=== PATIENT | female | born 1945 | race Caucasian/White ===

== ENCOUNTER 2020-10-04 10:06 | Outpatient (CLI) | payer MEDICARE, SELFPAY ==
--- NOTE | ~2020-10-04 | MM_ITS ---
EXAMINATION: MM screening [facility] BI w el[facility] HISTORY: Screening mammogram TECHNIQUE: Craniocaudal and mediolateral oblique 3-D tomosynthesis images were obtained and synthetic 2-D images were generated. CAD analysis was submitted and interpreted. COMPARISON: 10/03/2019, 09/30/2018, 09/19/2017 BREAST PARENCHYMAL COMPOSITION: There are scattered areas of fibroglandular density. FINDINGS: Scattered benign-appearing calcifications are present. There is no evidence of suspicious m ass, calcification, or architectural distortion to suggest malignancy in either breast. There has bee n no suspicious interval change. IMPRESSION: 1. No mammographic evidence of malignancy. 2. Recommend routine screening mammography in one year. BI-RADS Category 2: Benign finding(s). Reviewed, dictated and finalized at location A. [address] [facility] STENOGRAPHER
== END 2020-10-04 10:07 | disposition home or self-care (01) ==
LOC: ANHIMG 10:09
PROVIDERS: PCP Family Medicine; Visit Provider Family Medicine
DX: Z12.31 Encounter for screening mammogram for malignant neoplasm of breast (principal)
CPT/HCPCS: 77063; 77067

== ENCOUNTER 2020-10-14 08:12 | Outpatient (RCR) | payer MEDICARE, SELFPAY ==
--- NOTE | 2020-10-14 09:38 | PTOPEVAL ---
INITIAL PHYSICAL THERAPY EVALUATION Thank you for referring Kay Winn to [facility].? Eply maneuver was performed this date for + L Aviva Hallpike testing which Vandana tolerated well. Post 24 hour precautions for Eply maneuver information was provided as well as self corrective Eply maneuver information. I will follow up with phone call with Vandana in 1 week. If further treatment is needed, I will formulate a plan of care and forward it to you for signature. At this point, no further PT follow up is planned. I agree with PT evaluation and Eply maneuver corrective technique. Referring Physician Date Admitting Provider: Attending Provider: Rolando Gutierrez MD Referring Provider: *PT Outpatient Evaluation Start: 10/14/20 08:38 Freq: Status: Active Protocol: Document 10/14/20 08:30 KLAUDIA (Rec: 10/14/20 09:35 KLAUDIA [id number]) Therapy Assessment Status Assessment Status Assessment Status Evaluation Outpatient Past Medical History Past Medical History Source of Past Medical History Patient Neurological History Hx Neurological Disorders No Significant History Cardiovascular History Hx Atrial Fibrillation Yes: in afib all of the time Hx Hypercholesterolemia Yes Hx Hypertension Yes Hx Pacemaker Yes: new battery 2016 Hx Valve Replacement Yes: mitral valve 2005 Respiratory History Hx Chronic Obstructive Pulmonary Disease Yes: wears CPAP at night (COPD) Hx Pneumonia Yes: Oct 2019 Gastrointestinal History Hx Diverticulitis Yes Genitourinary History Hx Genitourinary Disorders No Significant History Musculoskeletal History Hx Musculoskeletal Disorders No Significant History Endocrine History Hx Diabetes Yes HEENT History Hx Cataracts Yes: L cataract surgery, watching R eye Evaluation Information Problem Diagnosis BPPV Onset ~ 1 year Subjective Information When gets into bed - goes to Query Text:As Reported By Patient/ lie down - head will spin. Family Only lasts 2-3 secs No difficulty with rolling over in bed or when getting up in the mornings. No dizziness at any other time. Did take Meclizine in past - didn't change dizziness - stopped taking it. Diagnostic Tests Other Tests For This Problem Yes: audiology exam, ENT exam Prior Level of Function Activity Level (Last 3 Months) Hand Dominance Right Medications Home Meds (Include: OTC, RX, Vitamins, Alendronate, allopurinol, Herbals, Dose, Route,and Frequency) atrovastatin, basaglar Pens, Query Text:Home Med Entries Will No ca
--- NOTE | 2020-10-20 08:55 | PCPTNOTE ---
Follow up phone call made to Vandana - she has not had any further dizziness. Will d/c from PT at this time.
== END 2020-12-29 09:28 | disposition home or self-care (01) ==
LOC: ANHPT 08:12
PROVIDERS: PCP Family Medicine; Visit Provider Otolaryngology
DX: H81.10 Benign paroxysmal vertigo, unspecified ear (principal)
CPT/HCPCS: 97161

== ENCOUNTER 2021-03-04 15:09 | Emergency (ER) | payer MEDICARE, SELFPAY ==
--- NOTE | 2021-03-04 15:33 | ED.SKABFB ---
HPI - Skin/Abscess/Foreign Bdy General Chief complaint: Skin/Abscess/Foreign Body Stated complaint: Lump on leg Time Seen by Provider: 03/04/21 15:33 Source: patient and RN notes reviewed Mode of arrival: ambulatory Limitations: no limitations History of Present Illness HPI narrative: 75-year-old female presents to the [facility] with right anterior lower leg lump. States it developed about 3 weeks ago. Lump is about 2-1/2 cm in diameter currently that is fluctuant with a dark center. Swelling and redness to the entire lower extremity. patient reports that she went for a massage yesterday and the massage therapist pointed out that the skin is very tight and the leg is firm with increased warmth. Patient states she has had something similar in the past and was admitted to the hospital for IV antibiotics. Related Data Home Medications Medication Instructions Recorded Confirmed alendronate [Fosamax] 70 mg PO WEEKLY 03/04/21 03/04/21 allopurinol [Zyloprim] 300 mg PO DAILY 03/04/21 03/04/21 atorvastatin [Lipitor] 10 mg PO HS 03/04/21 03/04/21 mllkzqpzey-gyemspgf-gbyxmeksbt 2 inh INHALATION BID 03/04/21 03/04/21 [Breztri Aerosphere] carvedilol [Coreg] 25 mg PO BID 03/04/21 03/04/21 doxycycline monohydrate 50 mg PO BID 03/04/21 03/04/21 furosemide [Lasix] 20 mg PO DAILY 03/04/21 03/04/21 insulin glargine [Basaglar KwikPen 30 unit SUBCUT 03/04/21 03/04/21 U-100 Insulin] losartan 25 mg PO DAILY 03/04/21 03/04/21 metformin [Glucophage] 1,000 mg PO DAILY 03/04/21 03/04/21 montelukast [Singulair] 10 mg PO DAILY 03/04/21 03/04/21 potassium chloride 1 meq PO DAILY 03/04/21 03/04/21 semaglutide [Ozempic] 1 mg SUBCUT WEEKLY 03/04/21 03/04/21 spironolactone [Aldactone] 12.5 mg PO DAILY 03/04/21 03/04/21 trospium 1 mg PO BID 03/04/21 03/04/21 warfarin 03/04/21 Allergies Allergy/AdvReac Type Severity Reaction Status Date / Time codeine AdvReac Mild Nausea Verified 03/04/21 15:31 Review of Systems Review of Systems: Narrative: CONSTITUTIONAL: Denies fever, chills, or sweats. EYES: Denies visual changes, redness, or discharge. ENT: Denies rhinorrhea, congestion, sore throat, or otalgia. CARDIOVASCULAR: Denies chest pain, palpitations, or edema. RESPIRATORY: Denies cough or dyspnea. GASTROINTESTINAL: Denies abdominal pain, nausea, vomiting, or diarrhea. GENITOURINARY: Denies dysuria or hematuria. SKIN: Denies rash or itching. MUSCULOSKELETAL: Denies back pain, joint pain, or myalgia. Has pain and skin tightness to the right lower leg. NEUROLOGIC: Denies headache, numbness, or weakness. PSYCHIATRIC: Denies anxiety or depression. All other systems reviewed are negative, except as documented in HPI. [facility] Past Medical History Medical History Hypertension Osteoporosis Family History Family History Mother Family history of coronary artery disease Social History Social History Gender identity (if verbalized by the patient): Female Comments At the time of my signature, I reviewed and agree with the nursing past medical, surgical, social, and family history. There is no relevant family history pertinent to the patient complaint. Exam Narrative: Exam Narrative: GENERAL: This is a well-nourished, well-developed patient, in no apparent distress. HEAD: normocephalic, atraumatic. EYES: PERRL. Sclera clear/white. Vision is grossly intact. EARS: External ears normal CARDIOVASCULAR: Regular rate and rhythm without murmurs, gallops, or rubs. RESPIRATORY: Clear to auscultation. Breath sounds equal bilaterally. No wheezes, rales, or rhonchi. SKIN: warm, dry, intact. 2 cm diameter red raised area right upper anterior neville. Swelling noted to the entire calf with increased redness and discoloration around the ankle. . NEURO: awake, alert, and oriented to person, place and time. There were no
[2021-03-04 15:48] VITALS: BP 145/70; PULSE 75; RESP 16; TEMP 37.6; O2SAT 98
--- NOTE | 2021-03-04 16:00 | PC.NURSE ---
1530- Rt 36cm/ Lt 34cm
== END 2021-03-04 15:47 | disposition short-term general hospital (02) ==
LOC: EXPCOLL 15:14
PROVIDERS: Emergency Provider Nurse Practitioner
DX: L03.115 Cellulitis of right lower limb (principal); L02.416 Cutaneous abscess of left lower limb; Z79.01 Long term (current) use of anticoagulants; I10 Essential (primary) hypertension; M81.0 Age-related osteoporosis without current pathological fracture
CPT/HCPCS: 99212; G0463

== ENCOUNTER 2021-10-19 15:27 | Outpatient (CLI) | payer MEDICARE, SELFPAY ==
--- NOTE | ~2021-10-19 | MM_ITS ---
EXAMINATION: MM screening [facility] w [facility] HISTORY: Screening mammogram TECHNIQUE: Craniocaudal and mediolateral oblique 3-D tomosynthesis images were obtained and synthetic 2-D images were generated. CAD analysis was submitted and interpreted. COMPARISON: 10/04/2020, 10/03/2019, 09/30/2018 BREAST PARENCHYMAL COMPOSITION: The breasts are heterogeneously dense, which may obscure small masses . FINDINGS: Scattered benign-appearing calcifications are present. There is no evidence of suspicious m ass, calcification, or architectural distortion to suggest malignancy in either breast. There has bee n no suspicious interval change. IMPRESSION: 1. No mammographic evidence of malignancy. 2. Recommend routine screening mammography in one year. BI-RADS Category 2: Benign finding(s). Reviewed, dictated and finalized at location A. TY ATTENDANT
== END 2021-10-19 15:28 | disposition home or self-care (01) ==
LOC: ANHIMG 15:30
PROVIDERS: PCP Family Medicine; Visit Provider Family Medicine
DX: Z12.31 Encounter for screening mammogram for malignant neoplasm of breast (principal)
CPT/HCPCS: 77063; 77067

== ENCOUNTER 2021-11-27 10:05 | Emergency (ER) | payer MEDICARE, SELFPAY ==
[2021-11-27] VITALS (13 sets, daily range): BP systolic 102–154; BP diastolic 66–101; PULSE 63–90; RESP 15–23; TEMP 36.7–37.1; O2SAT 95–100
--- NOTE | ~2021-11-27 | XR_ITS ---
EXAMINATION: XR chest 2V DATE: 11/27/2021 16:05 INDICATION: Shortness of breath. Cough. Chest pain. TECHNIQUE: Frontal and lateral views of the chest were obtained. COMPARISON: Chest 2 views 03/16/2017 FINDINGS: There is mild atelectasis in the lower lung zones. No pleural effusion or pneumothorax. 3 m m noted. There are changes of mitral valve replacement. The central pulmonary arteries are enlarged, consistent with pulmonary arterial hypertension. There is a left chest pacer with single lead in righ t ventricle. There is also a retained lead in right ventricle. There is an old healed right rib fract ure. IMPRESSION: 1. Mild atelectasis in the lower lung zones. 2. Cardiomegaly. Reviewed, dictated and finalized at location A. OPAEDIC DOCTOR
--- NOTE | 2021-11-27 10:19 | ECG_ITS ---
Measurements Intervals [place] Rate: 70 P: [place]: 0 QRS: -16 QRSD: 152 T: 141 QT: 404 QTc: 438 Interpretive Statements ELECTRONIC VENTRICULAR PACEMAKER UNDERLYING ATRIAL FLUTTER/TACHYCARDIA BASELINE ARTIFACT- I, II, III, AVR, AVL, AVF NO FURTHER INTERPRETATION IS POSSIBLE ABNORMAL ECG Electronically Signed On 11-27-2021 10:46:48 DIRECTOR SALES AND MARKETING by Vince Hernandez D.O.
[2021-11-27 14:58] LABS: Basophils Percent Auto 0.6 % (0.2-1.2); Eosinophils Absolute Auto 0.1 K/mm3 (0-0.3); Eosinophils Percent Auto 2.1 % (0-4.4); Hematocrit 41.6 % (37.0-47.0); Hemoglobin 13.5 g/dL (12.0-15.0); Immature Granulocyte Absolute 0.08 K/mm3 (0.00-0.031); Immature Granulocyte Percent A 1.2 % (0-0.5); Lymphocytes Absolute Auto 0.68 K/mm3 (0.9-3.2); Lymphocytes Percent Auto 10.3 % (18.3-44.2); Mean Corpuscular HGB Conc 32.5 g/dl (32-36); Mean Corpuscular Hemoglobin 32.6 pg (26-34); Mean Corpuscular Volume 100.5 fl (80-100); Mean Platelet Volume 9.9 fl (7.4-10.4); Monocytes Absolute Auto 0.9 K/mm3 (0.1-0.6); Monocytes Percent Auto 14.1 % (2.6-8.5); Neutrophils Absolute Auto 4.7 K/mm3 (1.3-6.7); Neutrophils Percent Auto 71.7 % (45.5-73.1); Platelet Count Result 151 k/mm3 (150-375); Red Blood Count 4.14 M/mm3 (4.2-5.4); Red Cell Distribution Width 15.6 % (11.5-14.5); White Blood Count 6.6 K/mm3 (4.5-10.0)
[2021-11-27] MEDS: IPRATROPIUM BR 0.02% INH SOLN 0.5 MG/2.5 ML VIAL INHALATION (14:58)
[2021-11-27] MEDS: ALBUTEROL SULFATE NEB 2.5 MG/0.5 ML INH INHALATION (14:58)
[2021-11-27 15:08] LABS: Alanine Aminotransferase 25 U/L (4-35); Albumin Level 4.3 g/dL (3.5-5.1); Alkaline Phosphatase 64 U/L (38-126); Anion Gap 8 mmol/L (8-16); Aspartate Amino Transferase 28 U/L (14-36); Bilirubin,Total 0.9 mg/dL (0.2-1.3); Blood Urea Nitrogen 32 mg/dL (7-17); Calcium 10.3 mg/dL (8.4-10.2); Carbon Dioxide 26 mmol/L (22-30); Chloride 105 mmol/L (98-107); Estimated CRCL calculation 32 ml/min; Estimated Glomerular Filt Rate 36; Glucose 94 mg/dL (65-110); Potassium 4.5 mmol/L (3.4-5.0); Sodium 139 mmol/L (137-145)
[2021-11-27 15:20] LABS: NT Pro B Type Natriuretic Pept 1650 pg/mL (5-100); Troponin I 0.022 ng/mL (0.000-0.034)
--- NOTE | 2021-11-27 16:21 | ED.GENADULT ---
HPI - General Adult General Chief complaint: Shortness of Breath/Dyspnea Stated complaint: SOB,Congestion Time Seen by Provider: 11/27/21 14:33 Source: patient History of Present Illness HPI narrative: Patient is a 76 y/o female complaining of cough, congestion and moderate SOB for 4 days. She states she is coughing up some yellowish phlegm. There is no known alleviating or exacerbating factor. She has no chest pain. She has some subjective fever, but did not check her temp. Related Data Home Medications Medication Instructions Recorded Confirmed alendronate [Fosamax] 70 mg PO WEEKLY 03/04/21 03/04/21 allopurinol [Zyloprim] 300 mg PO DAILY 03/04/21 03/04/21 atorvastatin [Lipitor] 10 mg PO HS 03/04/21 03/04/21 bcebxsrpxc-gwszdenq-dcwcjnrvtz 2 inh INHALATION BID 03/04/21 03/04/21 [Breztri Aerosphere] carvedilol [Coreg] 25 mg PO BID 03/04/21 03/04/21 doxycycline monohydrate 50 mg PO BID 03/04/21 03/04/21 furosemide [Lasix] 20 mg PO DAILY 03/04/21 03/04/21 insulin glargine [Basaglar KwikPen 30 unit SUBCUT HS 03/04/21 03/04/21 U-100 Insulin] losartan 25 mg PO DAILY 03/04/21 03/04/21 metformin [Glucophage] 1,000 mg PO DAILY 03/04/21 03/04/21 montelukast [Singulair] 10 mg PO DAILY 03/04/21 03/04/21 potassium chloride 1 meq PO DAILY 03/04/21 03/04/21 semaglutide [Ozempic] 1 mg SUBCUT WEEKLY 03/04/21 03/04/21 spironolactone [Aldactone] 12.5 mg PO DAILY 03/04/21 03/04/21 trospium 1 mg PO BID 03/04/21 03/04/21 warfarin 03/04/21 celecoxib 100 mg 11/27/21 empagliflozin [Jardiance] 10 mg DAILY 11/27/21 Allergies Allergy/AdvReac Type Severity Reaction Status Date / Time codeine AdvReac Mild Nausea Verified 11/27/21 18:25 Review of Systems Constitutional: Constitutional: Denies chills, Reports fever(s), Denies headache(s) and Denies weakness Eyes: Eyes: Denies blurry vision ENT: Denies headache(s) and Denies neck pain Cardiovascular: Cardiovascular: Denies chest pain and Reports dyspnea Respiratory: Respiratory: Reports cough and Reports dyspnea Gastrointestinal: Gastrointestinal: Denies abdominal pain, Denies diarrhea, Denies nausea and Denies vomiting Genitourinary: Genitourinary: Denies hematuria and Denies dysuria Musculoskeletal: Musculoskeletal: Denies back pain and Denies neck pain Neurologic: Denies headache(s) and Denies weakness PMFSH Past Medical History Medical History Hypertension Osteoporosis Family History Family History Mother Family history of coronary artery disease Social History Social History Gender identity (if verbalized by the patient): Female Exam Const: General: no acute distress and well developed Orientation/consciousness: oriented to person, oriented to place, oriented to time and patient oriented x3 HENMT: Head: normocephalic Ears: external ears normal General nose exam: Normal external nose present Eyes: General: appearance normal, both eyes and all related structures Conjunctivae: conjunctivae normal Neck: Neck: normal visual inspection and full ROM Chest: Chest palpation & inspection: normal inspection of the chest and no tenderness Resp: Effort & Inspection: normal respiratory effort Auscultation: clear to auscultation bilaterally Cardio: Rate: regular rate Rhythm: regular rhythm GI: GI Palp: No abdominal tenderness and Yes Soft to palpation Skin: General skin exam: normal color and turgor normal Neuro: General: oriented to person, oriented to place, oriented to time and patient oriented x3 Cognition (Neuro): normal cognition Extrem: General: normal to inspection, full ROM and no pedal edema Psych: Appearance: grossly normal Mental Status: mental status grossly normal Affect: normal affect Course Vital Signs Vital signs: Vital Signs Temperature 36.7 C 11/27/21 10:11 Pulse Rate 82 0
[2021-11-27 17:12] LABS: D Dimer 0.27 ug/mL (<0.48)
[2021-11-27 18:47] LABS: Troponin I 0.024 ng/mL (0.000-0.034)
[2021-11-27] MEDS: FUROSEMIDE INJ 40 MG/4 ML VIAL 20 MG IV PUSH (19:28)
[2021-11-28 13:42] LABS: SARS-CoV-2 RNA PCR Negative
== END 2021-11-27 20:17 | disposition home or self-care (01) ==
PROVIDERS: Emergency Provider Emergency Medicine; PCP Family Medicine
DX: I50.9 Heart failure, unspecified (principal); J06.9 Acute upper respiratory infection, unspecified; Z20.822 Contact with and (suspected) exposure to COVID-19; I11.0 Hypertensive heart disease with heart failure; E11.9 Type 2 diabetes mellitus without complications; E78.5 Hyperlipidemia, unspecified; M81.0 Age-related osteoporosis without current pathological fracture; Z79.84 Long term (current) use of oral hypoglycemic drugs; Z79.4 Long term (current) use of insulin; Z79.01 Long term (current) use of anticoagulants; Z79.899 Other long term (current) drug therapy; Z95.0 Presence of cardiac pacemaker; Z95.2 Presence of prosthetic heart valve; I48.92 Unspecified atrial flutter; R00.0 Tachycardia, unspecified; I51.7 Cardiomegaly
CPT/HCPCS: 36415; 71046; 80053; 83880; 84484; 85025; 85380; 93005; 96374; 99284; C9803; J1940; U0003; U0005

== ENCOUNTER 2021-12-13 09:37 | Emergency (ER) | payer MEDICARE, SELFPAY ==
--- NOTE | 2021-12-13 09:38 | ECG_ITS ---
Measurements Intervals [place] Rate: 78 P: [place]: 0 QRS: -28 QRSD: 158 T: 148 QT: 420 QTc: 480 Interpretive Statements ELECTRONIC VENTRICULAR PACEMAKER BASELINE ARTIFACT- I, II, III, AVR, AVL, AVF, V2, V5-V6 NO FURTHER INTERPRETATION IS POSSIBLE ATYPICAL ECG Electronically Signed On 12-13-2021 10:06:12 INDIAN TRADER by Vince Hernandez D.O.
[2021-12-13 09:39] VITALS: BP 168/89; PULSE 80; RESP 18; TEMP 36; O2SAT 100
[2021-12-13 09:50] LABS: Basophils Percent Auto 0.4 % (0.2-1.2); Eosinophils Percent Auto 0.4 % (0-4.4); Immature Granulocyte Absolute 0.09 K/mm3 (0.00-0.031); Immature Granulocyte Percent A 0.9 % (0-0.5); Lymphocytes Absolute Auto 0.88 K/mm3 (0.9-3.2); Lymphocytes Percent Auto 8.9 % (18.3-44.2); Mean Corpuscular HGB Conc 32.6 g/dl (32-36); Mean Corpuscular Hemoglobin 32.7 pg (26-34); Mean Corpuscular Volume 100.2 fl (80-100); Mean Platelet Volume 9.9 fl (7.4-10.4); Monocytes Absolute Auto 0.8 K/mm3 (0.1-0.6); Monocytes Percent Auto 8.5 % (2.6-8.5); Neutrophils Percent Auto 80.9 % (45.5-73.1); Platelet Count Result 206 k/mm3 (150-375); Red Blood Count 4.59 M/mm3 (4.2-5.4); Red Cell Distribution Width 15.8 % (11.5-14.5); White Blood Count 9.9 K/mm3 (4.5-10.0)
[2021-12-13 10:00] LABS: Alanine Aminotransferase 33 U/L (4-35); Albumin Level 4.1 g/dL (3.5-5.1); Alkaline Phosphatase 66 U/L (38-126); Anion Gap 7 mmol/L (8-16); Aspartate Amino Transferase 31 U/L (14-36); Bilirubin,Total 1.5 mg/dL (0.2-1.3); Blood Urea Nitrogen 37 mg/dL (7-17); Carbon Dioxide 33 mmol/L (22-30); Chloride 100 mmol/L (98-107); Estimated CRCL calculation 36 ml/min; Estimated Glomerular Filt Rate 43; Glucose 135 mg/dL (65-110); Potassium 4.6 mmol/L (3.4-5.0); Prothrombin Time 53.8 Seconds (11.1-14.7); Sodium 140 mmol/L (137-145)
[2021-12-13 10:57] LABS: INR 6.4
[2021-12-13 12:22] VITALS: BP 145/72; PULSE 70; TEMP 36.2; O2SAT 98
[2021-12-13 14:45] VITALS: BP 170/101; PULSE 82; RESP 16; TEMP 36.4; O2SAT 100
--- NOTE | 2021-12-13 14:53 | ED.GENADULT ---
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 Patient denies any symptoms or any bleeding from anywhere. Patient on Coumadin for atrial fibrillation, 4 mg Sunday and Sunday and 3 mg other days. Related Data Home Medications Medication Instructions Recorded Confirmed alendronate [Fosamax] 70 mg PO WEEKLY 03/04/21 03/04/21 allopurinol [Zyloprim] 300 mg PO DAILY 03/04/21 03/04/21 atorvastatin [Lipitor] 10 mg PO HS 03/04/21 03/04/21 lrawmorngm-mbytugnu-msamjakvdh 2 inh INHALATION BID 03/04/21 03/04/21 [Breztri Aerosphere] carvedilol [Coreg] 25 mg PO BID 03/04/21 03/04/21 doxycycline monohydrate 50 mg PO BID 03/04/21 03/04/21 furosemide [Lasix] 20 mg PO DAILY 03/04/21 03/04/21 insulin glargine [Basaglar KwikPen 30 unit SUBCUT HS 03/04/21 03/04/21 U-100 Insulin] losartan 25 mg PO DAILY 03/04/21 03/04/21 metformin [Glucophage] 1,000 mg PO DAILY 03/04/21 03/04/21 montelukast [Singulair] 10 mg PO DAILY 03/04/21 03/04/21 potassium chloride 1 meq PO DAILY 03/04/21 03/04/21 semaglutide [Ozempic] 1 mg SUBCUT WEEKLY 03/04/21 03/04/21 spironolactone [Aldactone] 12.5 mg PO DAILY 03/04/21 03/04/21 trospium 1 mg PO BID 03/04/21 03/04/21 warfarin 03/04/21 celecoxib 100 mg 11/27/21 empagliflozin [Jardiance] 10 mg DAILY 11/27/21 Allergies Allergy/AdvReac Type Severity Reaction Status Date / Time codeine AdvReac Mild Nausea Verified 12/13/21 14:55 Review of Systems Review of Systems: CONSTITUTIONAL: Denies fever, chills, or sweats. EYES: Denies visual changes, redness, or discharge. ENT: Denies rhinorrhea, congestion, sore throat, or otalgia. CARDIOVASCULAR: Denies chest pain, palpitations, or edema. RESPIRATORY: Denies cough or dyspnea. GASTROINTESTINAL: Denies abdominal pain, nausea, vomiting, or diarrhea. GENITOURINARY: Denies dysuria or hematuria. SKIN: Denies rash or itching. MUSCULOSKELETAL: Denies back pain, joint pain, or myalgia. NEUROLOGIC: Denies headache, numbness, or weakness. PSYCHIATRIC: Denies anxiety or depression. PMFSH Past Medical History Medical History Hypertension Osteoporosis Family History Family History Mother Family history of coronary artery disease Social History Social History Gender identity (if verbalized by the patient): Female Exam Narrative: General appearance: Well-developed, well-nourished Skin: Normal color Head: Normocephalic, nontraumatic Eyes: Clear conjunctiva ENT: Oropharynx normal, ears normal, nose normal Neck: Supple, nontender Chest and respiratory: Airway patent, no respiratory distress, no accessory muscle use Heart: Regular rate/rhythm Abdomen: Soft, nontender, no organomegaly, quiet bowel sounds Vascular: Normal peripheral pulses, normal capillary refill. Musculoskeletal: Normal range of motion, nontender back Neurologic: Alert and oriented ?3, HEAT SEALING MACHINE OPERATOR is normal as tested, no gross motor deficit Course Course Emergency Course: Stable Consultations Consultation #1: Chata, our cardiology nurse practitioner who discussed the case with Dr. donovan and the decision was to hold Coumadin for 3 days then discharge patient home to follow-up with their office as outpatient.
--- NOTE | 2021-12-13 15:06 | PC.NURSE ---
PT REPORTS SHE WAS DIAGNOSED WITH COVID 11/28/21. REPORTS HAD PT/INR DRAWN YESTERDAY FOR 1ST TIME SINCE DIAGNOSIS AND WAS CALLED TODAY AND TOLD TO COME TO THE ED FOR ELEVATED PT/INR. PT A/OX 4, NO DISTRESS, SKIN PWD AND GAIT STEADY. REPORTS WEAKNESS AND FATIGUE THAT HAS BEEN PRESENT SINCE DIAGNOSED WITH COVID. DENIES ANY PAIN OR BLEEDING
[2021-12-13 15:44] VITALS: BP 170/101; PULSE 82; RESP 16; TEMP 36.8; O2SAT 97
== END 2021-12-13 15:53 | disposition home or self-care (01) ==
PROVIDERS: Emergency Provider Emergency Medicine; PCP Family Medicine
DX: R79.1 Abnormal coagulation profile (principal); I48.91 Unspecified atrial fibrillation; I10 Essential (primary) hypertension; M81.0 Age-related osteoporosis without current pathological fracture; Z79.84 Long term (current) use of oral hypoglycemic drugs; Z79.4 Long term (current) use of insulin; Z79.01 Long term (current) use of anticoagulants; Z95.0 Presence of cardiac pacemaker
CPT/HCPCS: 36415; 80053; 85025; 85610; 93005; 99283

== ENCOUNTER 2022-03-06 11:57 | Outpatient (RCR) | payer MEDICARE, SELFPAY ==
[2021-12-16 10:47] LABS: INR 3.1; Prothrombin Time 31.3 Seconds (11.1-14.7)
[2021-12-19 13:39] LABS: INR 3.8; Prothrombin Time 35.9 Seconds (11.1-14.7)
[2021-12-23 12:52] LABS: Prothrombin Time 58.2 Seconds (11.1-14.7)
[2021-12-23 14:04] LABS: INR 7.1
[2021-12-26 12:16] LABS: INR 3.4; Prothrombin Time 33.5 Seconds (11.1-14.7)
[2022-02-27 12:02] LABS: INR 2.6; Prothrombin Time 26.9 Seconds (11.1-14.7)
[2022-03-06 12:26] LABS: INR 2.5; Prothrombin Time 26.2 Seconds (11.1-14.7)
== END 2022-03-16 23:59 | disposition home or self-care (01) ==
LOC: ANHLAB 11:57
PROVIDERS: PCP Family Medicine; Visit Provider Internal Medicine Cardiovascular Disease
DX: Z51.81 Encounter for therapeutic drug level monitoring (principal); I48.91 Unspecified atrial fibrillation; Z79.01 Long term (current) use of anticoagulants
CPT/HCPCS: 36415; 85610

== ENCOUNTER 2022-04-06 16:29 | Observation (INO) | payer MEDICARE, SELFPAY ==
[2022-04-06] VITALS (13 sets, daily range): BP systolic 153–165; BP diastolic 64–86; PULSE 62–99; RESP 16–26; TEMP 36.3–36.9; O2SAT 94–100; BMI 31.4
--- NOTE | ~2022-04-06 | CT_ITS ---
EXAMINATION: CT brain wo con DATE: 04/08/2022 16:30 INDICATION: h/o cva TECHNIQUE: Computed tomography (CT) of the head was performed without intravenous contrast. The mA wa s adjusted according to patient size. Iterative reconstruction technique was employed. The dose-lengt h product was 605.33 mGy-cm. COMPARISON: 04/06/2022. FINDINGS: No acute intracranial hemorrhage or extra-axial fluid collection. No hydrocephalus, mass, or herniation. No acute ischemic infarct. Unremarkable dural venous sinus attenuation. No acute osseous abnormality. The aerated spaces are clear. Mild atrophy and chronic white matter change. Old right cerebellar, left thalamic, and left caudate i nfarcts. Atherosclerotic intracranial calcifications. Left lens replacement. IMPRESSION: No acute intracranial process. Reviewed, dictated and finalized at location K.
--- NOTE | ~2022-04-06 | XR_ITS ---
EXAMINATION: XR chest 2V DATE: 04/06/2022 17:22 INDICATION: Weakness. TECHNIQUE: Frontal and lateral views of the chest were obtained. COMPARISON: Chest 2 views 11/27/2021, chest CT 03/17/2017 FINDINGS: There are airspace opacities in the lower lung zones. Lavon B-lines are noted. There is a small right pleural effusion. No pneumothorax. Cardiomegaly is noted. There are changes of heart valv e replacement. There is a left chest pacer with lead in right ventricle. There is a retained lead in right ventricle. IMPRESSION: 1. Airspace opacities and Lavon B-lines in the lower lung zones, consistent with mild pulmonary mariama a versus pneumonia. 2. Small right pleural effusion. 3. Cardiomegaly. Reviewed, dictated and finalized at location A. IMPRESSION: 1. Airspace opacities and Lavon B-lines in the lower lung zones, consistent wi th mild pulmonary edema versus pneumonia. 2. Small right pleural effusion. 3. Cardiomegaly.
--- NOTE | ~2022-04-06 | CT_ITS ---
EXAMINATION: CT brain wo con DATE: 04/06/2022 19:25 INDICATION: Altered mental status. Weakness. TECHNIQUE: Computed tomography (CT) of the head was performed without intravenous contrast. The mA wa s adjusted according to patient size. Iterative reconstruction technique was employed. The dose-lengt h product was 605.33 mGy-cm. COMPARISON: Head CT 07/03/2016 FINDINGS: There are small old infarcts in right cerebellum. There is an old infarct in left caudate n ucleus. There is no intracranial hemorrhage, acute infarction, or abnormal intracranial mass lesion. The ventricles are normal in size. There is mild mucosal thickening in the paranasal sinuses. There a re likely changes of left ocular lens replacement surgery. The mastoid air cells are normal. IMPRESSION: 1. 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 Reviewed, dictated and finalized at location A.
--- NOTE | 2022-04-06 16:33 | ECG_ITS ---
Measurements Intervals [place] Rate: 73 P: [place]: 0 QRS: -20 QRSD: 189 T: 140 QT: 464 QTc: 513 Interpretive Statements ELECTRONIC VENTRICULAR PACEMAKER NO FURTHER INTERPRETATION IS POSSIBLE ATYPICAL ECG Electronically Signed On 04-06-2022 20:26:14 CDT by Vince Hernandez D.O.
[2022-04-06 17:04] LABS: Alanine Aminotransferase 15 U/L (6-35); Alkaline Phosphatase 110 U/L (38-126); Anion Gap 10 mmol/L (8-16); Aspartate Amino Transferase 30 U/L (14-36); Bilirubin,Total 1.3 mg/dL (0.2-1.3); Blood Urea Nitrogen 23 mg/dL (7-17); Calcium 9.7 mg/dL (8.4-10.2); Carbon Dioxide 24 mmol/L (22-30); Chloride 106 mmol/L (98-107); Estimated CRCL calculation 34 ml/min; Estimated Glomerular Filt Rate 40; Glucose 116 mg/dL (65-110); Potassium 4.1 mmol/L (3.4-5.0); Sodium 140 mmol/L (137-145)
[2022-04-06 17:06] LABS: Basophils Absolute Auto 0.1 K/mm3 (0.0-0.1); Basophils Percent Auto 0.8 % (0.2-1.2); Eosinophils Absolute Auto 0.4 K/mm3 (0-0.3); Eosinophils Percent Auto 5.9 % (0-4.4); Hematocrit 40.2 % (37.0-47.0); Hemoglobin 12.4 g/dL (12.0-15.0); Immature Granulocyte Absolute 0.03 K/mm3 (0.00-0.031); Immature Granulocyte Percent A 0.5 % (0-0.5); Lymphocytes Absolute Auto 0.57 K/mm3 (0.9-3.2); Lymphocytes Percent Auto 9.6 % (18.3-44.2); Mean Corpuscular HGB Conc 30.8 g/dl (32-36); Mean Corpuscular Hemoglobin 30.7 pg (26-34); Mean Corpuscular Volume 99.5 fl (80-100); Mean Platelet Volume 9.6 fl (7.4-10.4); Monocytes Absolute Auto 0.6 K/mm3 (0.1-0.6); Monocytes Percent Auto 10.8 % (2.6-8.5); Neutrophils Absolute Auto 4.3 K/mm3 (1.3-6.7); Neutrophils Percent Auto 72.4 % (45.5-73.1); Platelet Count Result 184 k/mm3 (150-375); Red Blood Count 4.04 M/mm3 (4.2-5.4); Red Cell Distribution Width 14.8 % (11.5-14.5)
--- NOTE | 2022-04-06 17:49 | ED.WEAKNESS ---
HPI - Weakness General Chief complaint: Weakness Stated complaint: weakness Time Seen by Provider: 04/06/22 17:48 Source: patient and family Mode of arrival: ambulatory Limitations: no limitations History of Present Illness HPI Narrative: Patient is a 76-year-old female with history of hypertension, osteoporosis, presenting to the emergency department for evaluation of weakness, intermittent confusion. Patient states that since she was diagnosed with COVID in November 2021, patient has suffered with potential post-COVID sequelae of brain fog, intermittent confusion, significant fatigue. Patient denies focal weakness or numbness. She denies fever, chills, chest or abdominal pain. She reports urinary frequency and urgency that had improved after placement of a pessary, however since has recurred. She denies any dysuria or hematuria patient denies recent fall or injury. She reports normal oral intake. She reports that she feels mentally slow. Patient denies recent medication changes. She reports mild leg swelling without calf pain. Patient denies diarrhea or constipation. She denies significant headache or vision changes. She denies difficulty with speech. Patient's daughter at bedside does state that she seems to have significant cognitive decline over the past 4 months. States that the patient used to be very active, sharp in her mentation but now seems to be significantly fatigued, with decreased activity levels. Patient has insight to this, but states that because she was unable to secure a primary care physician appointment until the end of this month, wanted to be seen to ensure that there was no active infection or other acute medical problem. Patient states that today she was too weak to participate in physical therapy. Patient is awake, alert and well-appearing at the time of assessment. Related Data Home Medications Medication Instructions Recorded Confirmed alendronate [Fosamax] 70 mg PO WEEKLY 03/04/21 03/04/21 allopurinol [Zyloprim] 300 mg PO DAILY 03/04/21 03/04/21 atorvastatin [Lipitor] 10 mg PO HS 03/04/21 03/04/21 fjzkthbevh-svvwwdui-thawepavli 2 inh INHALATION BID 03/04/21 03/04/21 [Breztri SunBorne Energyphere] carvedilol [Coreg] 25 mg PO BID 03/04/21 03/04/21 doxycycline monohydrate 50 mg PO BID 03/04/21 03/04/21 furosemide [Lasix] 20 mg PO DAILY 03/04/21 03/04/21 insulin glargine [Basaglar KwikPen 30 unit SUBCUT HS 03/04/21 03/04/21 U-100 Insulin] losartan 25 mg PO DAILY 03/04/21 03/04/21 metformin [Glucophage] 1,000 mg PO DAILY 03/04/21 03/04/21 montelukast [Singulair] 10 mg PO DAILY 03/04/21 03/04/21 potassium chloride 1 meq PO DAILY 03/04/21 03/04/21 semaglutide [Ozempic] 1 mg SUBCUT WEEKLY 03/04/21 03/04/21 spironolactone [Aldactone] 12.5 mg PO DAILY 03/04/21 03/04/21 trospium 1 mg PO BID 03/04/21 03/04/21 warfarin 03/04/21 celecoxib 100 mg 11/27/21 empagliflozin [Jardiance] 10 mg DAILY 11/27/21 Allergies Allergy/AdvReac Type Severity Reaction Status Date / Time codeine AdvReac Mild Nausea Verified 04/06/22 16:33 Review of Systems Review of Systems: CONSTITUTIONAL: Denies fever, chills, or sweats. EYES: Denies visual changes, redness, or discharge. ENT: Denies rhinorrhea, congestion, sore throat, or otalgia. CARDIOVASCULAR: Denies chest pain, palpitations, or edema. RESPIRATORY: Denies cough or dyspnea. GASTROINTESTINAL: Denies abdominal pain, nausea, vomiting, or diarrhea. GENITOURINARY: Denies dysuria or hematuria. SKIN: Denies rash or itching. MUSCULOSKELETAL: Denies back pain, joint pain, or myalgia. NEUROLOGIC: Denies headache, numbness, reports feeling generally weak. Reports fatigue. PSYCHIATRIC: Denies anxiety or depression. [facility] Past Medical History Medical History Hypertension Osteoporosis Family History Family History Mother Family history of coronary artery disease S
[2022-04-06 19:03] LABS: Creatine Kinase 38 U/L (30-135)
[2022-04-06 19:07] LABS: INR 2.2; Partial Thromboplastin Time 38.1 SECONDS (22.3-36.8); Prothrombin Time 23.8 Seconds (11.1-14.7)
[2022-04-06 19:23] LABS: Appearance Urine Clear (Clear); Bilirubin Urine 1+ (Negative); Blood Urine Negative (Negative); Color Urine Yellow (Yellow); Glucose Urine UA 1+ mg/dL (Negative); Ketones Urine Negative (Negative); Leukocyte Esterase Ur Negative LEU/UL (Negative); Nitrate Urine Negative (Negative); Protein Urine 3+ mg/dL (Negative); pH Urine 5.5 (5.0-9.0)
[2022-04-06 19:29] LABS: NT Pro B Type Natriuretic Pept 1830 pg/mL (5-100); Troponin I 0.206 ng/mL (0.000-0.034)
--- NOTE | 2022-04-06 19:30 | PC.NURSE ---
verified with Dr Mchugh regarding next troponin that was due. she states that the troponins are timed and to draw them at those times
[2022-04-06 19:31] LABS: Add Urine Microscopic? YES; Bacteria Urine Trace /hpf; Mucus Urine Rare /lpf; Squamous Epithelial Cell Urine Many /hpf (Few)
[2022-04-06 20:32] LABS: SARS-CoV-2 RNA PCR Negative
[2022-04-06] MEDS: FUROSEMIDE 20 MG TABLET PO (23:26)
[2022-04-06 23:41] LABS: Folic Acid 13.5 ng/mL (2.76->20)
[2022-04-06 23:54] LABS: Troponin I 0.144 ng/mL (0.000-0.034)
[2022-04-07] VITALS (13 sets, daily range): BP systolic 110–176; BP diastolic 55–81; PULSE 61–96; RESP 16–24; TEMP 36.4–37; O2SAT 93–100
--- NOTE | 2022-04-07 | ECHO_ITS ---
Patient Info Name: Kay Winn Age: 76 years : 1945 Gender: Female Ht: 64 in Wt: 182 lbs BSA: 1.96 m2 HR: 66 bpm BP: 146 / 81 mmHg Heart Rhythm: Paced Technical Quality: Fair Exam Date: 04/07/2022 7:43 AM Exam Location: [facility] Pulmonary Patient Status: Outpatient Admit Date: 04/06/2022 Staff Ordering Physician: Jamie Mclean DO Supervisor Boiler Repair: Cecilia Ny RDCS Attending Provider: Jamie Mclean DO Exam Type: CA echo doppler color flow Study Info Indications - h/o HF, worsening SOB Complete two-dimensional, color flow and Doppler transthoracic echocardiogram is performed. Summary 1. Complete two-dimensional, color flow and Doppler transthoracic echocardiogram is performed. 2. Left ventricular systolic function is mildly reduced, estimated at 50%. 3. Left ventricular chamber dimension is normal. 4. There is mildly increased left ventricular wall thickness. 5. Left ventricular septal wall motion is abnormal with septal motion related to pacing. 6. The left ventricular diastolic function is abnormal. 7. Left atrial chamber dimension is moderately enlarged. 8. Right atrial chamber dimension is moderately enlarged. 9. There is mild aortic valve stenosis with a peak velocity of 298 cm/s, mean gradient of 17 mmHg, and aortic valve area of 1.7 cm2. 10. The mechanical mitral valve leaflets are not well visualized, however, leaflet excursion appears to be preserved. Unable to characterize regurgitation due to reverberation artifact. 11. Mechanical mitral valve gradients appear normal. 12. There is moderate tricuspid valve regurgitation. 13. Severe pulmonary hypertension, estimated pulmonary arterial systolic pressure is 60 mmHg. 14. Dilated inferior vena cava with <50% collapse upon inspiration consistent with significantly elevated right atrial pressure, 15 mmHg. Left Ventricle Left ventricular systolic function is mildly reduced, estimated at 50%. Left ventricular chamber dimension is normal. There is mildly increased left ventricular wall thickness. Left ventricular septal wall motion is abnormal with septal motion related to pacing. The left ventricular diastolic function is abnormal. Right Ventricle Right ventricular chamber dimension is normal. Right ventricular systolic function is normal. Linear artifact in right ventricle suggestive of catheter(s), pacemaker lead(s), or ICD lead(s). Left Atria Left atrial chamber dimension is moderately enlarged. Right Atria Right atrial chamber dimension is moderately enlarged. Linear artifact in the right atrium suggestive of catheter(s), pacemaker lead(s), or ICD lead(s). Aortic Valve The aortic valve is not well visualized. There is mild aortic valve stenosis with a peak velocity of 298 cm/s, mean gradient of 17 mmHg, and aortic valve area of 1.7 cm2. There is no aortic valve regurgitation. Pulmonic Valve The pulmonic valve is not well visualized. There is mild pulmonic regurgitation. Mitral Valve The mechanical mitral valve leaflets are not well visualized, however, leaflet excursion appears to be preserved. Unable to characterize regurgitation due to reverberation artifact. Mechanical mitral valve gradients appear normal. Tricuspid Valve The tricuspid valve leaflets are normal. There is moderate tricuspid valve regurgitation. Severe pulmonary hypertension, estimated pulmonary arterial systolic pressure is 60 mmHg. Pericardium/Pleural The pericardium appears normal. There is small pericardi
--- NOTE | 2022-04-07 00:27 | PC.NURSE ---
This patient, Kay Winn, was admitted to IMU Room 206-02. Patient/family oriented to hospital policies and general routines including ID bracelet, bed and alarms, visiting hours, pain management, procedures, bathroom and other care routines, personal items, smoking policy, room service/diet, and visiting hours. Patient/Family are encouraged to report perceived risks to care and to ask questions if they do not understand what they are told or what they should do.
[2022-04-07] MEDS: WARFARIN (*PBKC) 2 MG TABLET PO (00:31)
--- NOTE | 2022-04-07 04:37 | PM.IMHP ---
H&P: HPI History of Present Illness Date/Time: Greater than 30 minutes spent reviewing chart, evaluating, treating, and counseling patient. Anticipate patient will be admitted for less than 48 hours, will admit under observation. 04/07/22 04:37 76 yo F PMHx of HF (no documented TTE), h/o mechanical MV on coumadin, s/p PPM, COPD, T2DM on insulin, CKD, gout, HTN/HLD. Presents with worsening cognitive function and increasing weakness and SARMIENTO. Patient reports she had COVID for the second time back in 11/2021, and since then she never felt back to her baseline. Patient reports she has become more forgetful, which she states her daughters have also confirmed. Patient reports she has SOB at baseline, however has been having more SARMIENTO. She states she has not had any issues with falling or legs giving out, but she has more generalized weakness. Patient was not able to participate with PT yesterday, so family brought her in for evaluation. Patient denies fevers/chills, chest pain, palpitations, n/v/d/c, dysuria, hematuria, blood in stool. Patient reports increased urinary frequency for months that had initially gotten better after placement of pessary, but she has recurrence of increased urinary frequency. Patient noted she has had some clear drainage from LLE superficial wound, has been scratching it intermittently. No pain in legs. In ED patient's vitals stable. Labs unremarkable, INR 2.2. UA negative. Troponin initially slightly elevated, no down trending. TSH normal. CT Head showing old infarct in R cerebellum and L caudate nucleus. Neurology consulted. Chief Complaint: weakness, cognitive decline Review of Systems Review of Systems: 10 point ROS completed, negative unless otherwise specified per HPI [facility] Past Medical History Medical History (Updated 04/07/22 @ 05:10 by Jamie Mclean DO) CKD (chronic kidney disease) COPD (chronic obstructive pulmonary disease) Diabetes Gout Heart failure Hypertension Osteoporosis Urinary frequency Surgical History Surgical History (Updated 04/07/22 @ 05:05 by Jamie Mclean DO) H/O mitral valve replacement with mechanical valve Family History Family History Mother Family history of coronary artery disease Social History Social History Smoking packs per day: 3 Smoking cigarettes per day: 60.0 Years smoked: 12 Smoking pack-years: 36.00 Smoking status: Former smoker Alcohol intake: never Substance use: never Gender identity (if verbalized by the patient): Female Spiritual care concerns: No Meds Home Medications and Allergies Home Medications Medication Instructions Recorded Confirmed Type alendronate [Fosamax] 70 mg PO WEEKLY 03/04/21 04/06/22 History allopurinol [Zyloprim] 300 mg PO DAILY 03/04/21 04/06/22 History atorvastatin [Lipitor] 10 mg PO HS 03/04/21 04/06/22 History vfovjljeio-fkskxszj-mnfskazwqs 2 inh INHALATION BID 03/04/21 04/06/22 History [Breztri Aerosphere] carvedilol [Coreg] 25 mg PO BID 03/04/21 04/06/22 History furosemide [Lasix] 20 mg PO DAILY 03/04/21 04/06/22 History insulin glargine [Basaglar KwikPen 10 unit SUBCUT HS 03/04/21 04/06/22 History U-100 Insulin] losartan 25 mg PO DAILY 03/04/21 04/06/22 History metformin [Glucophage] 1,000 mg PO BIDWM 03/04/21 04/06/22 History montelukast [Singulair] 10 mg PO HS 03/04/21 04/06/22 History potassium chloride 10 meq PO DAILY 03/04/21 04/06/22 History semaglutide [Ozempic] 1 mg SUBCUT WEEKLY 03/04/21 04/06/22 History spironolactone [Aldactone] 12.5 mg PO DAILY 03/04/21 04/06/22 History trospium 20 mg PO BID 03/04/21 04/06/22 History empagliflozin [Jardiance] 10 mg PO DAILY 11/27/21 04/06/22 History warfarin [Jantoven] See Rx Instructions .ROUTE .COMPLEX 04/06/22 04/06/22 History Allergies Allergy/AdvReac Type Severity Reaction Status Date / Time codeine AdvReac Mild Nausea Verified
[2022-04-07 05:07] LABS: Basophils Percent Auto 0.8 % (0.2-1.2); Eosinophils Absolute Auto 0.2 K/mm3 (0-0.3); Hematocrit 38.6 % (37.0-47.0); Hemoglobin 11.8 g/dL (12.0-15.0); Immature Granulocyte Absolute 0.03 K/mm3 (0.00-0.031); Immature Granulocyte Percent A 0.6 % (0-0.5); Lymphocytes Absolute Auto 0.55 K/mm3 (0.9-3.2); Lymphocytes Percent Auto 11.4 % (18.3-44.2); Mean Corpuscular HGB Conc 30.6 g/dl (32-36); Mean Corpuscular Hemoglobin 30.4 pg (26-34); Mean Corpuscular Volume 99.5 fl (80-100); Mean Platelet Volume 9.4 fl (7.4-10.4); Monocytes Absolute Auto 0.6 K/mm3 (0.1-0.6); Monocytes Percent Auto 13.2 % (2.6-8.5); Neutrophils Absolute Auto 3.3 K/mm3 (1.3-6.7); Platelet Count Result 162 k/mm3 (150-375); Red Blood Count 3.88 M/mm3 (4.2-5.4); Red Cell Distribution Width 14.7 % (11.5-14.5); White Blood Count 4.8 K/mm3 (4.5-10.0)
[2022-04-07 05:16] LABS: Hemoglobin A1C 6.8 % (<5.7)
[2022-04-07 05:20] LABS: INR 2.4; Prothrombin Time 24.9 Seconds (11.1-14.7)
[2022-04-07 05:22] LABS: Alanine Aminotransferase 13 U/L (6-35); Albumin Level 3.5 g/dL (3.5-5.1); Alkaline Phosphatase 94 U/L (38-126); Anion Gap 6 mmol/L (8-16); Aspartate Amino Transferase 26 U/L (14-36); Bilirubin,Total 1.2 mg/dL (0.2-1.3); Blood Urea Nitrogen 21 mg/dL (7-17); Calcium 9.4 mg/dL (8.4-10.2); Carbon Dioxide 30 mmol/L (22-30); Chloride 105 mmol/L (98-107); Estimated CRCL calculation 33 ml/min; Estimated Glomerular Filt Rate 40; Glucose 128 mg/dL (65-110); Potassium 3.7 mmol/L (3.4-5.0); Sodium 141 mmol/L (137-145)
[2022-04-07] MEDS: CEPHALEXIN 250 MG CAPSULE PO ×3 (06:14→17:25)
[2022-04-07 08:13] LABS: Glucose Point of Care 115 mg/dl (65-105)
[2022-04-07] MEDS: FLUTICASONE/UMECLIDIN/VILANTER 100-62.5-25 MCG ELLIPTA 1 PUFF INHALATION (08:33)
[2022-04-07] MEDS: carvediloL 25 MG TABLET PO ×2 (09:09→20:07)
[2022-04-07] MEDS: LOSARTAN POTASSIUM 25 MG TABLET PO (09:09)
[2022-04-07] MEDS: SPIRONOLACTONE 12.5 MG TABLET PO (09:09)
[2022-04-07] MEDS: FUROSEMIDE 20 MG TABLET PO (09:09)
[2022-04-07] MEDS: allopurinoL 300 MG TABLET PO (09:09)
[2022-04-07] MEDS: ASPIRIN 81 MG CHEWABLE TABLET PO (09:14)
[2022-04-07 11:45] LABS: Glucose Point of Care 151 mg/dl (65-105)
--- NOTE | 2022-04-07 14:13 | WPDNEURCNPN ---
Assessment and Plan Additional Plan 1 is status post old infarct in the right cerebellum and left caudate nucleus 2 right-sided small pleural effusion with cardiomegaly 3 present COVID negative with mildly elevated blood sugar and prolonged INR which is getting under control will need a repeat CT scan to document any worsening of the stroke Consult date: 04/07/22 HPI: Kay Winn is a 76 year old female admitted to the hospital for the complaints of generalized weakness in addition to ongoing history of 1. Hypertension 2. Osteoporosis 3. Intermittent confusion with weakness and also with history of COVID in November of 2021 resulting in the post COVID brain fog with confusion and generalized fatigue, patient had been on multiple medications Review of Systems Review of Systems: All systems reviewed & are unremarkable except as noted in HPI and below PMFSH Past Medical History Medical History CKD (chronic kidney disease) COPD (chronic obstructive pulmonary disease) Diabetes Gout Heart failure Hypertension Osteoporosis Urinary frequency Surgical History Surgical History H/O mitral valve replacement with mechanical valve Family History Family History Mother Family history of coronary artery disease Social History Social History Smoking packs per day: 3 Smoking cigarettes per day: 60.0 Years smoked: 12 Smoking pack-years: 36.00 Smoking status: Former smoker Alcohol intake: never Substance use: never Gender identity (if verbalized by the patient): Female Spiritual care concerns: No Meds Home Medications and Allergies Home Medications Medication Instructions Recorded Confirmed Type alendronate [Fosamax] 70 mg PO WEEKLY 03/04/21 04/06/22 History allopurinol [Zyloprim] 300 mg PO DAILY 03/04/21 04/06/22 History atorvastatin [Lipitor] 10 mg PO HS 03/04/21 04/06/22 History iusalmbmvt-pkdfnaev-iqwhfkpbbe 2 inh INHALATION BID 03/04/21 04/06/22 History [Breztri Aerosphere] carvedilol [Coreg] 25 mg PO BID 03/04/21 04/06/22 History furosemide [Lasix] 20 mg PO DAILY 03/04/21 04/06/22 History insulin glargine [Basaglar KwikPen 10 unit SUBCUT HS 03/04/21 04/06/22 History U-100 Insulin] losartan 25 mg PO DAILY 03/04/21 04/06/22 History metformin [Glucophage] 1,000 mg PO BIDWM 03/04/21 04/06/22 History montelukast [Singulair] 10 mg PO HS 03/04/21 04/06/22 History potassium chloride 10 meq PO DAILY 03/04/21 04/06/22 History semaglutide [Ozempic] 1 mg SUBCUT WEEKLY 03/04/21 04/06/22 History spironolactone [Aldactone] 12.5 mg PO DAILY 03/04/21 04/06/22 History trospium 20 mg PO BID 03/04/21 04/06/22 History empagliflozin [Jardiance] 10 mg PO DAILY 11/27/21 04/06/22 History warfarin [Jantoven] See Rx Instructions .ROUTE .COMPLEX 04/06/22 04/06/22 History Allergies Allergy/AdvReac Type Severity Reaction Status Date / Time codeine AdvReac Mild Nausea Verified 04/06/22 23:03 Vital Signs Vital Signs - 24 hr 04/06/22 16:31 04/06/22 17:40 04/06/22 17:41 Temperature 36.3 C L Pulse Rate 87 92 87 Respiratory Rate 16 26 H 24 H Blood Pressure 153/78 H 155/86 H Pulse Oximetry 97 95 95 04/06/22 17:45 04/06/22 17:46 04/06/22 18:00 Temperature Pulse Rate 64 62 78 Respiratory Rate 19 21 H 26 H Blood Pressure 158/66 H Pulse Oximetry 96 96 96 04/06/22 18:46 04/06/22 18:47 04/06/22 19:43 Temperature Pulse Rate Respiratory Rate Blood Pressure 155/79 H Pulse Oximetry 97 94 98 04/06/22 19:58 04/06/22 22:13 04/06/22 22:37 Temperature Pulse Rate 64 63 99 Respiratory Rate 18 21 H Blood Pressure 155/64 H Pulse Oximetry 95 95 04/06/22 22:41 04/07/22 00:00 04/07/22 02:00 Temperature 36.9 C 36.6 C Pulse Rate 86 63 61 Respiratory Rate 16 18 Blood Pressure 165/68
[2022-04-07 17:12] LABS: Glucose Point of Care 158 mg/dl (65-105)
[2022-04-07] MEDS: INSULIN GLARGINE (*BKC) 100 UNITS/ML 10 UNITS SUB-Q (20:07)
[2022-04-07] MEDS: ATORVASTATIN 10 MG TABLET PO (20:07)
[2022-04-07] MEDS: MONTELUKAST SODIUM 10 MG TABLET PO (20:07)
[2022-04-07 20:42] LABS: Glucose Point of Care 232 mg/dl (65-105)
[2022-04-08] VITALS (10 sets, daily range): BP systolic 132–149; BP diastolic 65–77; PULSE 60–90; RESP 16–18; TEMP 36.6–36.7; O2SAT 97–99
[2022-04-08] MEDS: CEPHALEXIN 250 MG CAPSULE PO ×3 (05:32→16:59)
[2022-04-08 08:02] LABS: Glucose Point of Care 113 mg/dl (65-105)
[2022-04-08] MEDS: carvediloL 25 MG TABLET PO (08:16)
[2022-04-08] MEDS: allopurinoL 300 MG TABLET PO (08:16)
[2022-04-08] MEDS: FUROSEMIDE 20 MG TABLET PO (08:17)
[2022-04-08] MEDS: LOSARTAN POTASSIUM 25 MG TABLET PO (08:17)
[2022-04-08] MEDS: SPIRONOLACTONE 12.5 MG TABLET PO (08:17)
--- NOTE | 2022-04-08 08:24 | PC.NURSE ---
CALLED PHARMACY AND LEFT MESSAGE FOR 0900 ASPIRIN. WILL GIVE WHEN RECEIVED FROM PHARMACY
[2022-04-08] MEDS: ASPIRIN 81 MG CHEWABLE TABLET PO (09:08)
[2022-04-08] MEDS: FLUTICASONE/UMECLIDIN/VILANTER 100-62.5-25 MCG ELLIPTA 1 PUFF INHALATION (09:38)
[2022-04-08 10:38] LABS: Basophils Absolute Auto 0.1 K/mm3 (0.0-0.1); Basophils Percent Auto 0.8 % (0.2-1.2); Eosinophils Absolute Auto 0.4 K/mm3 (0-0.3); Eosinophils Percent Auto 5.7 % (0-4.4); Hematocrit 40.3 % (37.0-47.0); Hemoglobin 12.9 g/dL (12.0-15.0); Immature Granulocyte Absolute 0.03 K/mm3 (0.00-0.031); Immature Granulocyte Percent A 0.5 % (0-0.5); Lymphocytes Absolute Auto 0.63 K/mm3 (0.9-3.2); Lymphocytes Percent Auto 10.2 % (18.3-44.2); Mean Corpuscular Hemoglobin 30.9 pg (26-34); Mean Corpuscular Volume 96.4 fl (80-100); Mean Platelet Volume 9.8 fl (7.4-10.4); Monocytes Absolute Auto 0.6 K/mm3 (0.1-0.6); Monocytes Percent Auto 9.7 % (2.6-8.5); Neutrophils Absolute Auto 4.5 K/mm3 (1.3-6.7); Neutrophils Percent Auto 73.1 % (45.5-73.1); Platelet Count Result 175 k/mm3 (150-375); Red Blood Count 4.18 M/mm3 (4.2-5.4); Red Cell Distribution Width 14.6 % (11.5-14.5); White Blood Count 6.2 K/mm3 (4.5-10.0)
[2022-04-08 10:50] LABS: INR 2.1
[2022-04-08 10:57] LABS: Alanine Aminotransferase 16 U/L (6-35); Albumin Level 3.8 g/dL (3.5-5.1); Alkaline Phosphatase 95 U/L (38-126); Anion Gap 9 mmol/L (8-16); Aspartate Amino Transferase 29 U/L (14-36); Bilirubin,Total 1.3 mg/dL (0.2-1.3); Blood Urea Nitrogen 22 mg/dL (7-17); Calcium 9.6 mg/dL (8.4-10.2); Carbon Dioxide 26 mmol/L (22-30); Chloride 104 mmol/L (98-107); Estimated CRCL calculation 39 ml/min; Estimated Glomerular Filt Rate 48; Glucose 155 mg/dL (65-110); Potassium 3.4 mmol/L (3.4-5.0); Sodium 139 mmol/L (137-145)
[2022-04-08 12:01] LABS: Glucose Point of Care 153 mg/dl (65-105)
--- NOTE | 2022-04-08 14:55 | PM.DS ---
DS: Admitting Diagnosis Discharge Date April 08, 2022 Admitting Diagnosis Generalized weakness DS: Discharge Diagnosis Discharge Diagnosis (1) Weakness: Code(s): R53.1 - Weakness Status: Acute Assessment and Plan: Unclear etiology at the moment. R/o cardiac with workup below. TSH normal. Consider CT of chest. PT/OT evaluation (2) CVA (cerebral vascular accident): Code(s): I63.9 - Cerebral infarction, unspecified Status: Acute Assessment and Plan: No focal deficits on exam. Neuro consulted. Continue statin, will add on ASA. (3) Hypertension: Code(s): I10 - Essential (primary) hypertension Status: Inactive Assessment and Plan: Continue losartan. HF meds as below (4) Heart failure: Code(s): I50.9 - Heart failure, unspecified Status: Acute Assessment and Plan: Check ECHO. Continue carvedilol, lasix, spironolactone (5) Diabetes: Code(s): E11.9 - Type 2 diabetes mellitus without complications Status: Acute Assessment and Plan: Takes basaglar 10 U at home, will continue lantus 8 U HS. Low dose SSI. Check A1c. Hold jardiance and metformin (6) Gout: Code(s): M10.9 - Gout, unspecified Status: Acute Assessment and Plan: continue allopurinol (7) COPD (chronic obstructive pulmonary disease): Code(s): J44.9 - Chronic obstructive pulmonary disease, unspecified Status: Inactive Assessment and Plan: continue trelegy (8) H/O mitral valve replacement with mechanical valve: Code(s): Z95.2 - Presence of prosthetic heart valve Status: Acute Assessment and Plan: continue coumadin. Daily PT-INR, goal 2.5-3.5 (9) Urinary frequency: Code(s): R35.0 - Frequency of micturition Status: Acute Assessment and Plan: UA negative. Will hold trospium, may affect patient's cognition DS: Summary Hospital Course Reason for hospitalization: Generalized weakness Hospital Course: 76-year-old female with complicated past medical history including mechanical mitral valve anticoagulated with Coumadin, permanent pacemaker, insulin-dependent diabetes mellitus type 2, COPD, CKD, hypertension hyperlipidemia is presenting with 4-5 month history of generalized weakness and forgetfulness. Patient states ever since she had COVID in November she has never been the same. She is denying shortness of breath or chest pain. She says 9 nausea vomiting or diarrhea. She does not have any focal weakness, just a general sense of exhaustion and inability to be on about as much as she used to. She is able to manage her ADLs as well as her IADLs. She does have some word-finding difficulty and occasionally forgets the locations of place that she used to visit frequently. She is still driving and living independently. Daughters in the room and states that her mother used to go out to eat several times a week and visit friends almost daily now after 1 out in per day she seems exhausted. She has not had any falls and denies any balance issues. There was no worsening of symptoms recently, however, the patient was sick of feeling like that and decided to come to the ER. She was admitted for observation and neurology consultation. CT of the head was done and showed an old infarct in the right cerebellum in the left caudate nucleus. 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 The rest of her workup was negative for infectious or reversible etiologies there were obvious. Upon further evaluation, the patient was found to be both depressed and anxious and started on Lexapro 10 mg daily. She will be discharged in good condition with close outpatient follow-up by her family doctor. It was recommended that she seek neuropsychological cognitive evaluation for further management of her forgetfulness. Status at Discharge Functional status at discharge: independent ambulation Overall status at discha
[2022-04-08 16:56] LABS: Glucose Point of Care 121 mg/dl (65-105)
[2022-04-08] MEDS: WARFARIN (*PBKC) 3 MG TABLET BY MOUTH (16:59)
== END 2022-04-08 17:20 | disposition home or self-care (01) ==
LOC: ANHED 18:12 → ANHIMU 21:35 → ANH2MED 04-07 18:14
PROVIDERS: Emergency Medicine; Admitting Provider Internal Medicine; Emergency Provider Emergency Medicine; PCP Family Medicine; Visit Provider Student in an Organized Health Care Education/Training Program
DX: R53.1 Weakness (principal); I50.9 Heart failure, unspecified; I13.0 Hypertensive heart and chronic kidney disease with heart failure and stage 1 through stage 4 chronic kidney disease, or unspecified chronic kidney disease; N18.9 Chronic kidney disease, unspecified; I27.20 Pulmonary hypertension, unspecified; E11.22 Type 2 diabetes mellitus with diabetic chronic kidney disease; E78.5 Hyperlipidemia, unspecified; M81.0 Age-related osteoporosis without current pathological fracture; M10.9 Gout, unspecified; R35.0 Frequency of micturition; R53.83 Other fatigue; F41.9 Anxiety disorder, unspecified; F32.A Depression, unspecified; Z79.4 Long term (current) use of insulin; Z20.822 Contact with and (suspected) exposure to COVID-19; Z86.16 Personal history of COVID-19; Z86.73 Personal history of transient ischemic attack (TIA), and cerebral infarction without residual deficits; Z79.01 Long term (current) use of anticoagulants; Z95.2 Presence of prosthetic heart valve; Z95.0 Presence of cardiac pacemaker
CPT/HCPCS: 36415; 70450; 71046; 80053; 81001; 82550; 82607; 82746; 82948; 83036; 83880; 84443; 84484; 85025; 85610; 85730; 87086; 87088; 93005; 93306; 94640; 97161; 97165; 99285; A9270; C9803; G0378; J1815; U0003; U0005

== ENCOUNTER 2022-04-19 11:39 | Outpatient (RCR) | payer MEDICARE, SELFPAY ==
[2022-04-19 12:09] LABS: INR 2.6; Prothrombin Time 26.8 Seconds (11.1-14.7)
== END 2022-07-18 23:59 | disposition home or self-care (01) ==
LOC: ANHLAB 11:39
PROVIDERS: PCP Family Medicine; Visit Provider Internal Medicine Cardiovascular Disease
DX: Z51.81 Encounter for therapeutic drug level monitoring (principal); I48.91 Unspecified atrial fibrillation; Z79.01 Long term (current) use of anticoagulants
CPT/HCPCS: 36415; 85610

== ENCOUNTER 2022-05-24 11:42 | Emergency (ER) | payer MEDICARE, SELFPAY ==
[2022-05-24] VITALS (18 sets, daily range): BP systolic 66–122; BP diastolic 30–57; PULSE 60–96; RESP 14–27; TEMP 36.2–36.8; O2SAT 94–100
--- NOTE | ~2022-05-24 | XR_ITS ---
XR chest 1V portable DATE: 05/24/2022 12:37 INDICATION: Weakness TECHNIQUE: Portable AP chest on 05/24/2022 at 1232 hours COMPARISON: 04/06/2022 PA and lateral chest FINDINGS: Status post sternotomy and mitral valve replacement. Cardiomegaly. Prominent aortic arch an d descending thoracic aortic and abdominal aortic calcification. Mild infiltrate or atelectasis in the left mid and both lower lung zones. Pulmonary vascular redistribution may indicate mild pulmonary venous hypertension. Left pacemaker device; 2 leads overlying right ventricle. Osteopenia. IMPRESSION: Mild infiltrate or atelectasis in the left mid and both lower lung zones Cardiomegaly, possible mild pulmonary venous hypertension Reviewed, dictated and finalized at location B.
--- NOTE | ~2022-05-24 | XR_ITS ---
EXAMINATION: XR chest port-a-cath/central INDICATION: Central line insertion TECHNIQUE: Portable AP chest at 1443 hours COMPARISON: 1232 hours FINDINGS: A right internal jugular central venous catheter is been inserted which ends with its tip i n the right atrium. There are minimal airspace opacities of the left lung base. No pleural effusion o r pneumothorax. Cardiomegaly is noted. Changes of cardiac valve surgery are noted. A single lead pace maker of the left chest wall ends with leads in expected position. 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 IMPRESSION: 1. Right internal jugular central venous catheter insertion, no pneumothorax. 2. Left basilar airspace opacity, consistent with atelectasis versus pneumonia. 3. Cardiomegaly. Reviewed, dictated and finalized at location A.
--- NOTE | ~2022-05-24 | CT_ITS ---
EXAMINATION: CT abdomen pelvis wo con DATE: 05/24/2022 13:22 INDICATION: Left lower quadrant abdominal pain. Anemia. TECHNIQUE: Computed tomography (CT) of the abdomen and pelvis was performed without intravenous contr ast. Automated exposure control and iterative reconstruction technique were employed. Exam dose: 191 9.60 mGy-cm total exam DLP. COMPARISON: 03/17/2017 Limited abdominal ultrasound and CT abdomen pelvis FINDINGS: Minimal atelectasis at the lung bases. Cardiomegaly. Left atrial wall calcification. Right ventricular pacemaker lead. No pericardial effusi on. There is surface nodularity of liver which may be due to cirrhosis. No hepatic space-occupying mass l esion is noted. The gallbladder is present and appears unremarkable. No pericholecystic fluid or fat stranding. No bile duct or pancreatic duct dilatation. No pancreatic mass lesion or calcification. Duodenal diverticulum. Normal splenic size. Mild nodularity of the adrenal glands is again noted, stable. No renal mass lesion or urinary tract calculus or hydroureteronephrosis. There is extensive abdominal aortic calcification but no aneurysm. Prominent calcification at the rika gin of the superior mesenteric artery. No intraperitoneal or retroperitoneal or pelvic mass lesion or adenopathy or ascites is noted. Pessary device is identified. Small sliding hiatal hernia. There is a prominent amount fecal material in the rectosigmoid area. Div erticulosis of the left and right colon; no CT evidence of diverticulitis. No bowel obstruction or in traperitoneal free air. There is a huge left rectus hematoma, extending along the left lateral abdominal wall musculature as well Mild subcutis emphysema of the left and right anterior abdominal wall, possibly due to subcutaneous i njections. Diffuse osteopenia. There is moderate degenerative disc disease and retrolisthesis at L3-4. No suspicious osteolytic or o steoblastic lesions are noted. IMPRESSION: Huge left abdominal wall hematoma including rectus and lateral abdominal wall musculatur e Diverticulosis of the left and right colon; no CT evidence of diverticulitis Cirrhosis Small sliding hiatal hernia Duodenal diverticulum Reviewed, dictated and finalized at [facility]. Reviewed, dictated and finalized at [facility]. IMPRESSION: Huge left abdominal wall hematoma including rectus and lateral abd ominal wall musculature Diverticulosis of the left and right colon; no CT evidence of diverticulitis Cirrhosis Small sliding hiatal hernia Duodenal diverticulum
--- NOTE | 2022-05-24 11:45 | ECG_ITS ---
Measurements Intervals [place] Rate: 68 P: 240 TN: 290 QRS: -18 QRSD: 179 T: 123 QT: 488 QTc: 521 Interpretive Statements ELECTRONIC VENTRICULAR PACEMAKER ABNORMAL RHYTHM ECG COMPARED TO ECG 04/06/2022 16:39:11 NO SIGNIFICANT CHANGES Electronically Signed On 05-24-2022 12:47:20 CDT by Yajaira Mosher M.D.
--- NOTE | 2022-05-24 12:10 | ED.SYNCOPE ---
HPI - Syncope General Chief Complaint: Syncope Stated Complaint: syncopal & low BP Time Seen by Provider: 05/24/22 12:10 History of Present Illness HPI narrative: The patient is a 77-year-old female with a history of atrial fibrillation, mitral valve replacement, chronic anticoagulation with warfarin hypertension, congestive heart failure, hyperlipidemia, type 2 diabetes presenting to the emergency department for evaluation of low blood pressure, generalized weakness, and 2 episodes of syncope today. Patient states that she was ambulating to the restroom when she became lightheaded and then had a witnessed syncopal episode. Patient was then moved to a chair where she then passed out again. Apparently, there was a brief period of normal consciousness in between episodes of syncope. Patient denies any chest pain, palpitations prior to the fall. She reports mild abdominal pain at the site of her anticoagulation injections, but denies any flank pain. She reports lightheadedness and dizziness that worsens with movement. She denies any shortness of breath. She denies dark or tarry stool. Patient reports only recent medication change is her anticoagulation. Patient therapy tech is Dr. Morales She also reports that she had several episodes of nonbloody, nonbilious emesis over the past 24 hours. Reports limited oral intake secondary to left lower quadrant abdominal pain. Pain is mild, aching in nature, at first she attributed this to her injection site. Related Data Home Medications Medication Instructions Recorded Confirmed alendronate 70 mg tablet (Fosamax) 70 mg PO WEEKLY 03/04/21 04/06/22 allopurinol 300 mg tablet 300 mg PO DAILY 03/04/21 04/06/22 (Zyloprim) atorvastatin 10 mg tablet (Lipitor) 10 mg PO HS 03/04/21 04/06/22 budesonide 160 mcg-glycopyr 9 2 inh inhalation BID 03/04/21 04/06/22 mcg-formot 4.8 mcg/actuation HFA inhaler (Breztri Aerosphere) carvedilol 25 mg tablet (Coreg) 25 mg PO BID 03/04/21 04/06/22 furosemide 20 mg tablet (Lasix) 20 mg PO DAILY 03/04/21 04/06/22 insulin glargine 100 unit/mL (3 10 unit subcut HS 03/04/21 04/06/22 mL) subcutaneous pen (Basaglar KwikPen U-100 Insulin) losartan 25 mg tablet 25 mg PO DAILY 03/04/21 04/06/22 metformin 500 mg tablet 1,000 mg PO BIDWM 03/04/21 04/06/22 (Glucophage) montelukast 10 mg tablet 10 mg PO HS 03/04/21 04/06/22 (Singulair) potassium chloride 10 mEq 10 meq PO DAILY 03/04/21 04/06/22 tablet,extended release semaglutide 1 mg/dose (2 mg/1.5 1 mg subcut WEEKLY 03/04/21 04/06/22 mL) subcutaneous pen injector (Ozempic) spironolactone 25 mg tablet 12.5 mg PO DAILY 03/04/21 04/06/22 (Aldactone) trospium 20 mg tablet 20 mg PO BID 03/04/21 04/06/22 empagliflozin 10 mg tablet 10 mg PO DAILY 11/27/21 04/06/22 (Jardiance) warfarin 2 mg tablet (Jantoven) See Rx Instructions .Route .COMPLEX 04/06/22 04/06/22 Allergies Allergy/AdvReac Type Severity Reaction Status Date / Time codeine AdvReac Mild Nausea Verified 05/24/22 11:48 Review of Systems Review of Systems: CONSTITUTIONAL: Denies fever, chills, or sweats. EYES: Denies visual changes, redness, or discharge. ENT: Denies rhinorrhea, congestion, sore throat, or otalgia. CARDIOVASCULAR: Denies chest pain, palpitations, or edema. RESPIRATORY: Denies cough or dyspnea. GASTROINTESTINAL: Reports left-sided abdominal pain, nausea, vomiting, denies diarrhea, denies dark or tarry stool GENITOURINARY: Denies dysuria or hematuria. SKIN: Denies rash or itching. MUSCULOSKELETAL: Denies back pain, joint pain, or myalgia. NEUROLOGIC: Denies headache, numbness, reports generalized weakness, reports syncopal episode last night PMFSH Past Medical History Medical History CKD (chronic kidney disease) COPD (chronic obstructive pulmonary disease) Diabetes Gout Heart failure Hypertension Osteoporosis Urinary frequency Surgical History Surgical Hi
[2022-05-24 12:19] LABS: Basophils Absolute Auto 0.1 K/mm3 (0.0-0.1); Basophils Percent Auto 0.5 % (0.2-1.2); Eosinophils Absolute Auto 0.1 K/mm3 (0-0.3); Eosinophils Percent Auto 0.8 % (0-4.4); Hematocrit 25.4 % (37.0-47.0); Hemoglobin 7.9 g/dL (12.0-15.0); Immature Granulocyte Absolute 0.37 K/mm3 (0.00-0.031); Immature Granulocyte Percent A 3.2 % (0-0.5); Lymphocytes Absolute Auto 1.15 K/mm3 (0.9-3.2); Mean Corpuscular HGB Conc 31.1 g/dl (32-36); Mean Corpuscular Hemoglobin 28.8 pg (26-34); Mean Corpuscular Volume 92.7 fl (80-100); Mean Platelet Volume 10.4 fl (7.4-10.4); Monocytes Absolute Auto 0.9 K/mm3 (0.1-0.6); Monocytes Percent Auto 7.8 % (2.6-8.5); Neutrophils Percent Auto 77.7 % (45.5-73.1); Platelet Count Result 144 k/mm3 (150-375); Red Blood Count 2.74 M/mm3 (4.2-5.4); Red Cell Distribution Width 16.3 % (11.5-14.5); White Blood Count 11.5 K/mm3 (4.5-10.0)
[2022-05-24 12:30] LABS: Alanine Aminotransferase 17 U/L (6-35); Albumin Level 2.4 g/dL (3.5-5.1); Alkaline Phosphatase 56 U/L (38-126); Anion Gap 8 mmol/L (8-16); Aspartate Amino Transferase 20 U/L (14-36); Bilirubin,Total 0.6 mg/dL (0.2-1.3); Blood Urea Nitrogen 46 mg/dL (7-17); Calcium 8.5 mg/dL (8.4-10.2); Carbon Dioxide 25 mmol/L (22-30); Chloride 102 mmol/L (98-107); Estimated CRCL calculation 23 ml/min; Estimated Glomerular Filt Rate 26; Glucose 211 mg/dL (65-110); Potassium 4.6 mmol/L (3.4-5.0); Sodium 135 mmol/L (137-145)
[2022-05-24] MEDS: ONDANSETRON INJ 4 MG/2 ML VIAL IV PUSH (12:35)
[2022-05-24 12:41] LABS: Prothrombin Time 30.4 Seconds (11.1-14.7)
[2022-05-24 12:42] LABS: Partial Thromboplastin Time 36.2 SECONDS (22.3-36.8)
[2022-05-24] MEDS: SODIUM CHLORIDE 0.9% IV 500 ML 999 ML IV CONT (12:42)
[2022-05-24 13:10] LABS: Lipase 131 U/L (23-300)
[2022-05-24 13:14] LABS: SARS-CoV-2 RNA PCR Negative
--- NOTE | 2022-05-24 13:16 | PC.NURSE ---
lakisha fierro [phone]
[2022-05-24 13:24] LABS: Lactate Dehydrogenase 405 U/L (313-618)
[2022-05-24 13:26] LABS: Iron 71 ug/dL (37-170)
[2022-05-24 13:31] LABS: Lactic Acid Reflex 4.1 mmol/L (0.7-2.0)
[2022-05-24 13:32] LABS: Appearance Urine Clear (Clear); Bilirubin Urine Negative (Negative); Blood Urine Negative (Negative); Color Urine Yellow (Yellow); Glucose Urine UA 2+ mg/dL (Negative); Ketones Urine Trace mg/dL (Negative); Leukocyte Esterase Ur Negative LEU/UL (Negative); Nitrate Urine Negative (Negative); Protein Urine 2+ mg/dL (Negative); Urobilinogen Urine 0.2 mg/dL (<2.0); pH Urine 5.5 (5.0-9.0)
[2022-05-24 13:35] LABS: Percent Iron Saturation 22 % (20-50)
[2022-05-24 13:42] LABS: RBC Urine 0-2 /hpf (0-2); Squamous Epithelial Cell Urine Rare /hpf (Few); WBC Urine 0-3 /hpf
[2022-05-24] MEDS: SODIUM CHLORIDE 0.9% IV 250 ML 30 ML IV CONT (13:45)
[2022-05-24] MEDS: TUBING, BLOOD PLUM PUMP TUBING 1 EACH XX (13:45)
[2022-05-24 13:57] LABS: Add Urine Microscopic? YES
--- NOTE | 2022-05-24 14:23 | PC.NURSE ---
AISHA Lyn at bedside to place central Line for accute blood loss, consent obtained prior to procedure.
[2022-05-24 14:29] LABS: Folic Acid 10.6 ng/mL (2.76->20)
[2022-05-24] MEDS: NOREPINEPHRINE 8 MG/D5W 250 ML 8 MG/250 ML BAG 9.38 MG IV CONT (14:55)
[2022-05-24] MEDS: PHYTONADIONE ADULT INJ 10 MG in DEXTROSE 5% IN WATER 50 ML 100 MG IVPB (14:57)
[2022-05-24 15:55] LABS: Troponin I 0.025 ng/mL (0.000-0.034)
[2022-05-24 16:12] LABS: Reflex Lactic Acid Yes or No Add Lactic
[2022-05-24 16:41] LABS: Lactic Acid 2.9 mmol/L (0.7-2.0)
[2022-05-24] MEDS: TETANUS,DIPHTHERIA,AC PERTUSSIS ADULT (0.5 ML) BOOSTRIX IM (18:03)
[2022-05-29 07:51] LABS: Haptoglobin 151 mg/dL (43-212)
== END 2022-05-24 18:35 | disposition short-term general hospital (02) ==
PROVIDERS: Emergency Medicine; Emergency Provider Emergency Medicine; PCP Family Medicine
DX: R57.8 Other shock (principal); D64.9 Anemia, unspecified; S30.1XXA Contusion of abdominal wall, initial encounter; Z23 Encounter for immunization; Z95.0 Presence of cardiac pacemaker; K57.90 Diverticulosis of intestine, part unspecified, without perforation or abscess without bleeding; Z20.822 Contact with and (suspected) exposure to COVID-19; W19.XXXA Unspecified fall, initial encounter
CPT/HCPCS: 36415; 36430; 36556; 51701; 71045; 74176; 80053; 81001; 82607; 82746; 83010; 83540; 83550; 83605; 83615; 83690; 84484; 85025; 85610; 85730; 86850; 86900; 86901; 86920; 87040; 90715; 93005; 99285; C1751; C9803; J0131; J2405; J3430; J7040; J7050; J7168; P9016; U0003; U0005

== ENCOUNTER 2022-12-12 12:31 | Inpatient (IN) | payer MEDICARE, SELFPAY ==
[2022-12-12] VITALS (24 sets, daily range): BP systolic 103–182; BP diastolic 66–99; PULSE 20–82; RESP 10–30; TEMP 36.3–36.6; O2SAT 74–100; BMI 27.2
--- NOTE | ~2022-12-12 | XR_ITS ---
Portable chest x-ray Comparison: 05/24/2022 Clinical History: Dizziness, hypertension Findings: Probable mild pulmonary edema pattern noted. No pleural effusion. Cardiomediastinal silho uette is stable, status post mitral valve replacement with pacemaker device. Bones and soft tissues a re unremarkable. Impression: Probable mild pulmonary edema pattern. Status post mitral valve replacement with pacemaker device. Reviewed, dictated and finalized at location . NCIAL SYSTEMS MANAGER Impression: Probable mild pulmonary edema pattern. Status post mitral valve replacement with pacemaker device.
--- NOTE | ~2022-12-12 | CT_ITS ---
CT head without contrast Indication: Vertigo, hypertension COMPARISON: 04/08/2022 Technique: Serial scans were obtained through the brain without the administration of contrast. Dose reduction technique was used on this scan by utilizing automated exposure control and iterative recon struction technique. The dose-length product (DLP) was 605.33 mGy-cm. Findings: There is no evidence of intracranial hemorrhage, mass lesion, or acute infarct. The ventri cles and subarachnoid spaces are dilated, consistent with mild atrophy. Low attenuation regions are seen within the periventricular white matter bilaterally, likely representing changes from chronic mi crovascular ischemic disease. There is no evidence of edema, mass effect or midline shift. The visu alized paranasal sinuses and mastoid air cells are clear. Impression: No intracranial hemorrhage, mass, or acute infarct. Atrophy and chronic white matter changes, as above. Reviewed, dictated and finalized at [facility]. LATORY ATTORNEY Impression: No intracranial hemorrhage, mass, or acute infarct. Atrophy and chronic white matter changes, as above.
--- NOTE | 2022-12-12 12:48 | ECG_ITS ---
Measurements Intervals [place] Rate: 80 P: 152 MT: 219 QRS: -31 QRSD: 192 T: 144 QT: 468 QTc: 542 Interpretive Statements ELECTRONIC VENTRICULAR PACEMAKER NO FURTHER INTERPRETATION IS POSSIBLE ATYPICAL ECG COMPARED TO ECG 05/24/2022 11:50:54 NO SIGNIFICANT CHANGES Electronically Signed On 12-12-2022 13:04:26 [employer] by Vince Hernandez D.O.
--- NOTE | 2022-12-12 12:59 | ED.GENADULT ---
HPI - General Adult General Chief complaint: Recheck/Abnormal Lab/Rx Stated complaint: Dizziness Time Seen by Provider: 12/12/22 12:42 History of Present Illness HPI narrative: Patient is a 77-year-old female with a history of CVA, mechanical valve on warfarin, CHF, diabetes, hyperlipidemia, hypertension presenting with lightheadedness and high blood pressure. Patient states that when she got up this morning she felt lightheaded. Patient continued with her daily activities and was able to eat breakfast and go to exercise class. Patient states that she did ask for assistance ambulating to exercise class due to this lightheadedness. Her facility then checked her blood pressure and found it to be 240s over 100s so EMS was called. Her blood pressure was rechecked and was 256/140 just prior to transfer. On my evaluation, the patient states that the lightheadedness feels improved. She denies any chest pain, shortness of breath, palpitations. She denies vertigo, numbness, weakness, speech changes. She reports chronic incontinence. She denies abdominal pain, nausea or vomiting, diarrhea, leg swelling. Related Data Home Medications Medication Instructions Recorded Confirmed alendronate 70 mg tablet (Fosamax) 70 mg PO WEEKLY 03/04/21 12/12/22 atorvastatin 10 mg tablet (Lipitor) 10 mg PO HS 03/04/21 12/12/22 budesonide 160 mcg-glycopyr 9 2 inh inhalation BID 03/04/21 12/12/22 mcg-formot 4.8 mcg/actuation HFA inhaler (Breztri Aerosphere) carvedilol 25 mg tablet (Coreg) 3.125 mg PO BID 03/04/21 12/12/22 furosemide 20 mg tablet (Lasix) 20 mg PO DAILY 03/04/21 12/12/22 semaglutide 1 mg/dose (2 mg/1.5 1 mg subcut WEEKLY 03/04/21 12/12/22 mL) subcutaneous pen injector (Ozempic) spironolactone 25 mg tablet 12.5 mg PO DAILY 03/04/21 12/12/22 (Aldactone) warfarin 2 mg tablet (Jantoven) 3 mg PO HS 04/06/22 12/12/22 azelastine 137 mcg (0.1 %) nasal 2 spray intranasal BID 12/12/22 12/12/22 spray aerosol dapagliflozin 10 mg tablet 10 mg PO DAILY 12/12/22 12/12/22 (Farxiga) donepezil 5 mg tablet 5 mg PO HS 12/12/22 12/12/22 fluticasone propionate 50 1 spray intranasal BID 12/12/22 12/12/22 mcg/actuation nasal spray,suspension ropinirole 1 mg tablet 1 mg PO HS 12/12/22 12/12/22 Allergies Allergy/AdvReac Type Severity Reaction Status Date / Time codeine AdvReac Mild Nausea Verified 12/12/22 16:38 Review of Systems Review of Systems: All systems reviewed & are unremarkable except as noted in HPI and below PMFSH Past Medical History Medical History CKD (chronic kidney disease) COPD (chronic obstructive pulmonary disease) Diabetes Gout Heart failure Hypertension Osteoporosis Urinary frequency Surgical History Surgical History H/O mitral valve replacement with mechanical valve Family History Family History Mother Family history of coronary artery disease Social History Social History Smoking packs per day: 3 Smoking cigarettes per day: 60.0 Years smoked: 12 Smoking pack-years: 36.00 Smoking status: Former smoker Alcohol intake: never Substance use: never Lack of Transportation: No Lack of Food: Never True Current Housing: I Have Housing Concerned About Future Housing: No Difficulty Paying Gas/Electric Bills: No Difficulty Paying for Meds: No Currently Unemployed: No Education: Associate Degree Difficulty w/ Childcare or Family Care: No Gender identity (if verbalized by the patient): Female Spiritual care concerns: No Exam Narrative: GENERAL: Well-appearing, laying down in bed comfortably, in no acute distress HEAD: Normocephalic, atraumatic. EYES: PERRLA and EOMI. ENT: Nares clear, no rhinorrhea or epistaxis. Mucous membranes moist. NECK:
[2022-12-12 13:15] LABS: Basophils Percent Auto 0.6 % (0.2-1.2); Eosinophils Absolute Auto 0.1 K/mm3 (0-0.3); Eosinophils Percent Auto 1.5 % (0-4.4); Hematocrit 41.3 % (37.0-47.0); Hemoglobin 12.7 g/dL (12.0-15.0); Immature Granulocyte Absolute 0.03 K/mm3 (0.00-0.031); Immature Granulocyte Percent A 0.6 % (0-0.5); Lymphocytes Percent Auto 9.2 % (18.3-44.2); Mean Corpuscular HGB Conc 30.8 g/dl (32-36); Mean Corpuscular Hemoglobin 29.4 pg (26-34); Mean Corpuscular Volume 95.6 fl (80-100); Mean Platelet Volume 9.7 fl (7.4-10.4); Monocytes Absolute Auto 0.4 K/mm3 (0.1-0.6); Monocytes Percent Auto 7.5 % (2.6-8.5); Neutrophils Absolute Auto 4.4 K/mm3 (1.3-6.7); Neutrophils Percent Auto 80.6 % (45.5-73.1); Platelet Count Result 115 k/mm3 (150-375); Red Blood Count 4.32 M/mm3 (4.2-5.4); Red Cell Distribution Width 16.8 % (11.5-14.5); White Blood Count 5.4 K/mm3 (4.5-10.0)
[2022-12-12 13:17] LABS: Appearance Urine Clear (Clear); Bilirubin Urine Negative (Negative); Blood Urine 1+ (Negative); Color Urine Yellow (Yellow); Glucose Urine UA 2+ mg/dL (Negative); Ketones Urine Negative (Negative); Leukocyte Esterase Ur Trace LEU/UL (Negative); Nitrate Urine Negative (Negative); Protein Urine 3+ mg/dL (Negative); pH Urine 6.5 (5.0-9.0)
[2022-12-12 13:25] LABS: Alanine Aminotransferase 25 U/L (6-35); Albumin Level 3.3 g/dL (3.5-5.1); Alkaline Phosphatase 99 U/L (38-126); Anion Gap 4 mmol/L (8-16); Aspartate Amino Transferase 28 U/L (14-36); Bilirubin,Total 0.8 mg/dL (0.2-1.3); Blood Urea Nitrogen 21 mg/dL (7-17); Calcium 9.4 mg/dL (8.4-10.2); Carbon Dioxide 32 mmol/L (22-30); Chloride 106 mmol/L (98-107); Estimated Glomerular Filt Rate 36; Glucose 69 mg/dL (65-110); Potassium 3.5 mmol/L (3.4-5.0); Sodium 142 mmol/L (137-145)
[2022-12-12 13:27] LABS: INR 3.6; Prothrombin Time 34.7 Seconds (11.1-14.7)
[2022-12-12 13:28] LABS: Partial Thromboplastin Time 39.1 SECONDS (22.3-36.8); Squamous Epithelial Cell Urine Occasional /hpf (Few); WBC Urine 31-50 /hpf
[2022-12-12 13:29] LABS: Add Urine Microscopic? YES
[2022-12-12 13:36] LABS: NT Pro B Type Natriuretic Pept 4670 pg/mL (19.9-100); Troponin I 0.017 ng/mL (0.000-0.034)
[2022-12-12] MEDS: FUROSEMIDE INJ 40 MG/4 ML VIAL 20 MG IV PUSH (14:19)
[2022-12-12 15:24] LABS: Influenza A QL RT-PCR Negative (Negative); Influenza B QL RT-PCR Negative (Negative); SARS-CoV-2 RNA PCR Negative
--- NOTE | 2022-12-12 15:30 | PM.IMHP ---
H&P: HPI History of Present Illness Date/Time: 12/12/22 15:30 Chief Complaint: Dizziness and elevated blood pressure. Narrative: This is a very pleasant 77-year-old female with hypertension, chronic kidney disease, COPD, diabetes, combined systolic and diastolic congestive heart failure, sleep apnea, and history of mechanical mitral valve replacement on chronic anticoagulation presented to the emergency department via EMS from [place] for evaluation of dizziness and elevated blood pressure. This morning she got up at 05:00 as usual and while getting ready to go to her exercise class she felt a bit dizzy but though symptoms past quickly. She completed her chair exercise class and had breakfast thereafter. While walking to breakfast however she once again had a dizzy episode that she is unable to accurately qualify. At time she tells me she felt lightheaded like she may pass out and she also notes that she felt off balance and unsteady. ?Word got around the facility? and a staff member came to her apartment to check on her. Blood pressure was reportedly 256/140 and EMS was summoned. She states compliance with her medications. She denies headache, visual changes, facial droop, difficulty swallowing and speaking, focal weakness, and paresthesias. She has not had chest pain, pleuritic pain, palpitations, or sensations of racing heart. Since arrival to the hospital her blood pressures have been consistently in the 170s systolic and she is having no symptoms currently. Brain CT showed no acute intracranial findings. Chest x-ray showed probable mild pulmonary edema. She is being admitted in this setting for close monitoring. Currently she has no complaints. Review of Systems Review of Systems: Twelve systems were reviewed and are negative except for as per HPI. FOR[facility] Past Medical History Medical History (Updated 12/13/22 @ 00:37 by Ana Monsalve PA-C) B12 deficiency B12 deficiency Chronic anticoagulation Chronic kidney disease, stage 3 Chronic obstructive pulmonary disease Gout Heart failure Echocardiogram in March 2022 showed mildly reduced LV systolic function with an EF of 50% and abnormal diastolic function. Hypertension Kidney stones Obstructive sleep apnea On APAP. Osteoporosis Type 2 diabetes mellitus Urinary frequency Urinary incontinence Surgical History Surgical History (Updated 12/13/22 @ 00:34 by Ana Monsalve PA-C) History of appendectomy History of hysterectomy History of mitral valve replacement with mechanical valve (04/2006) Saint Loc valve. History of permanent cardiac pacemaker placement Family History Family History Mother Family history of coronary artery disease Social History Social History (Updated 12/13/22 @ 00:35 by Ana Monsalve PA-C) Social History: Surrogate medical decision maker: Deneen Winn or Corinne Hensley, daughters. Code status: Full code. Smoking packs per day: 3 Smoking cigarettes per day: 60.0 Years smoked: 12 Smoking pack-years: 36.00 Smoking status: Former smoker Alcohol intake: never Substance use: never Lack of Transportation: No Lack of Food: Never True Current Housing: I Have Housing Concerned About Future Housing: No Difficulty Paying Gas/Electric Bills: No Difficulty Paying for Meds: No Currently Unemployed: No Education: Associate Degree Difficulty w/ Childcare or Family Care: No Additional living arrangements comments: Assisted living at [place]. Spiritual care concerns: No Meds Home Medications and Allergies Home Medications Medication Instructions Recorded Confirmed Type alendronate 70 mg tablet (Fosamax) 70 mg PO WEEKLY 03/04/21 12/12/22 History atorvastatin 10 mg tablet (Lipitor) 10 mg PO HS 03/04/21 12/12/22 History budesonide 160 mcg-glycopyr 9 2 inh inhalation BID 03/04/21 12/12/22 History mcg-formot 4.8 mcg/actuation HFA
--- NOTE | 2022-12-12 16:36 | ADMGEN ---
This patient, Kay Winn, was admitted to Medical Room 249-01. Patient/family oriented to hospital policies and general routines including ID bracelet, bed and alarms, visiting hours, pain management, procedures, bathroom and other care routines, personal items, smoking policy, room service/diet, and visiting hours. Information on how to activate the Rapid Response Team has been discussed. Patient/Family are encouraged to report perceived risks to care and to ask questions if they do not understand what they are told or what they should do.
[2022-12-12 16:54] LABS: Troponin I 0.018 ng/mL (0.000-0.034)
[2022-12-12 20:49] LABS: Troponin I 0.019 ng/mL (0.000-0.034)
[2022-12-13] VITALS (17 sets, daily range): BP systolic 114–179; BP diastolic 58–87; PULSE 60–76; RESP 16–18; TEMP 36–37.2; O2SAT 95–97
[2022-12-13] MEDS: carvediloL 3.125 MG TABLET PO ×3 (01:23→20:51)
[2022-12-13 05:24] LABS: Anion Gap 3 mmol/L (8-16); Blood Urea Nitrogen 18 mg/dL (7-17); Carbon Dioxide 29 mmol/L (22-30); Chloride 103 mmol/L (98-107); Estimated CRCL calculation 33 ml/min; Estimated Glomerular Filt Rate 48; Glucose 85 mg/dL (65-110); Potassium 3.7 mmol/L (3.4-5.0); Sodium 135 mmol/L (137-145)
[2022-12-13] MEDS: FLUTICASONE PROPIONATE 0.05% NA SPR 16 GM BTL (*BKC) 1 SPRAY NASAL (10:02)
[2022-12-13] MEDS: WATER FOR IRRIGATION, STERILE 1,000 ML BOTTLE 1000 ML (10:02)
[2022-12-13] MEDS: EMPAGLIFLOZIN 25 MG TABLET BY MOUTH (10:05)
[2022-12-13] MEDS: SPIRONOLACTONE 12.5 MG TABLET PO (10:06)
[2022-12-13] MEDS: ESCITALOPRAM OXALATE 10 MG TABLET PO (10:06)
[2022-12-13] MEDS: AZELASTINE HCL NASAL 0.1% 137 MCG/SPR 30 ML BTL 2 SPRAY NASAL (10:07)
[2022-12-13] MEDS: FUROSEMIDE 20 MG TABLET PO (10:07)
--- NOTE | 2022-12-13 11:57 | PM.IMPN ---
Progress Note: A&P Assessment and Plan (1) Obstructive sleep apnea: Code(s): G47.33 - Obstructive sleep apnea (adult) (pediatric) Status: Acute (2) Hypertensive urgency: Code(s): I16.0 - Hypertensive urgency Status: Acute (3) Type 2 diabetes mellitus: Code(s): E11.9 - Type 2 diabetes mellitus without complications Status: Acute (4) Chronic obstructive pulmonary disease: Code(s): J44.9 - Chronic obstructive pulmonary disease, unspecified Status: Acute (5) Chronic anticoagulation: Code(s): Z79.01 - correction (current) use of anticoagulants Status: Acute (6) UTI (urinary tract infection): Code(s): N39.0 - Urinary tract infection, site not specified Status: Acute (7) CHF exacerbation: Code(s): I50.9 - Heart failure, unspecified Status: Acute Plan Patient advice to quit smoking. Bronchodilators. Spirometry and Routine exercises. HBA1c ( goal <7.0%) , Renal functions, Liver panel every 3 months Monitor vitamin B12 levels Optimize HENRIK-inhibitor and statin carvedilol, Aldactone. Warfarin for aortic valve replacement Continued Jardiance Routine glucose monitoring. Watch for Hypoglycemia. BMI goal < 25 Urine cultures and sensitivity. Continue IV hydration. Monitor CBC CMP monitor for sepsis. Monitor vital signs Start antibiotics Rocephin Start probiotics to prevent antibiotic induced diarrhea Blood cultures pending Monitor for obstructive uropathy and pyelonephritis Time Spent With Patient Time: DVT prophylaxis. GI prophylaxis. All records reviewed Discussed plan of care with the nursing staff and with the patient in detail. Answered all questions and concerns from the patient. All labs have been reviewed. Code status updated dictation may have been done utilizing a voice recognition system. Attempts have been made to correct errors. However, there may be uncorrected grammatical, spelling, and recognition errors present. Subjective Date/time seen: 12/13/22 11:57 Interval history: Patient comfortable denies any complaints Exam Narrative: GENERAL: Well appearing, well-nourished, non-toxic, in no acute distress. HEAD: Normocephalic, atraumatic. NECK: Supple. No adenopathy, no masses. RESPIRATORY: Airway patent, respirations nonlabored. Clear to auscultation bilaterally, no rales, rhonchi, wheezing. CARDIOVASCULAR: Regular rate and rhythm without murmurs, rubs, or gallops. Peripheral pulses 2+ and equal bilaterally. ABDOMINAL: Soft, nontender, nondistended, no hepatosplenomegaly. Normoactive BS. MUSCULOSKELETAL: no Epigastric and no hypochondrial tenderness SKIN: Warm, dry, normal color. No rashes. NEURO: A&O X3. Moves all extremities PSYCHIATRIC: Appropriate mood and affect. Normal interaction. Objective Data Vital Signs Vital Signs: Vital Signs - 24 hr 12/12/22 12:34 12/12/22 12:40 12/12/22 12:41 Temperature 36.5 C Pulse Rate 80 Respiratory Rate 16 10 L 13 Blood Pressure 152/80 H 152/80 H Pulse Oximetry 98 Oxygen Delivery Room Air Fraction of Inspired Oxygen 12/12/22 12:46 12/12/22 13:01 12/12/22 13:16 Temperature Pulse Rate Respiratory Rate 16 30 H Blood Pressure 148/88 H 103/66 Pulse Oximetry Oxygen Delivery Fraction of Inspired Oxygen 12/12/22 13:26 12/12/22 13:30 12/12/22 13:48 Temperature Pulse Rate 65 64 Respiratory Rate 28 H 17 18 Blood Pressure Pulse Oximetry Oxygen Delivery Fraction of Inspired Oxygen 12/12/22 14:00 12/12/22 14:15 12/12/22 14:45 Temperature Pulse Rate 61 61 82 Respiratory Rate 13 16 18 Blood Pressure Pulse Oximetry Oxygen Delivery Fraction of Inspired Oxygen 12/12/22 14:46 12/12/22 15:52 12/12/22 14:47 Temperature Pulse Rate 78 70 76 Respiratory Rate 16 18 17 Blood Pressure 172/99 H 171/82 H Pulse Oximetry 97 Oxygen Delivery Fraction of Inspired Oxygen
[2022-12-13] MEDS: rOPINIRole HCL 1 MG TABLET PO (20:51)
[2022-12-13] MEDS: DONEPEZIL HCL 5 MG TABLET PO (20:51)
[2022-12-13] MEDS: ATORVASTATIN 10 MG TABLET PO (20:51)
[2022-12-13 21:03] LABS: INR 2.5; Prothrombin Time 26.1 Seconds (11.1-14.7)
[2022-12-13] MEDS: WARFARIN (*PBKC) 3 MG TABLET PO (22:44)
[2022-12-14] VITALS (9 sets, daily range): BP systolic 128–162; BP diastolic 57–80; PULSE 60–86; RESP 17–20; TEMP 36.2; O2SAT 96–100
[2022-12-14] MEDS: EMPAGLIFLOZIN 25 MG TABLET BY MOUTH (08:02)
[2022-12-14] MEDS: carvediloL 3.125 MG TABLET PO (08:02)
[2022-12-14] MEDS: FUROSEMIDE 20 MG TABLET PO (08:02)
[2022-12-14] MEDS: ESCITALOPRAM OXALATE 10 MG TABLET PO (08:02)
[2022-12-14] MEDS: SPIRONOLACTONE 12.5 MG TABLET PO (08:03)
[2022-12-14] MEDS: lisinopriL 20 MG TABLET PO (08:03)
[2022-12-14] MEDS: FLUTICASONE/UMECLIDIN/VILANTER 100-62.5-25 MCG ELLIPTA 1 PUFF INHALATION (08:26)
--- NOTE | 2022-12-14 10:10 | PM.DS ---
DS: Admitting Diagnosis Discharge Date December 14, 2022 Admitting Diagnosis Dizziness DS: Discharge Diagnosis Discharge Diagnosis (1) Hypertensive urgency: Code(s): I16.0 - Hypertensive urgency Status: Acute (2) Obstructive sleep apnea: Code(s): G47.33 - Obstructive sleep apnea (adult) (pediatric) Status: Acute (3) Hypertension: Code(s): I10 - Essential (primary) hypertension Status: Acute (4) Type 2 diabetes mellitus: Code(s): E11.9 - Type 2 diabetes mellitus without complications Status: Acute DS: Summary Hospital Course Hospital Course: This is a very pleasant 77-year-old female with hypertension, chronic kidney disease, COPD, diabetes, combined systolic and diastolic congestive heart failure, sleep apnea, and history of mechanical mitral valve replacement on chronic anticoagulation presented to the emergency department via EMS from [place] for evaluation of dizziness and elevated blood pressure. This morning she got up at 05:00 as usual and while getting ready to go to her exercise class she felt a bit dizzy but though symptoms past quickly. She completed her chair exercise class and had breakfast thereafter. While walking to breakfast however she once again had a dizzy episode that she is unable to accurately qualify. At time she tells me she felt lightheaded like she may pass out and she also notes that she felt off balance and unsteady. ?Word got around the facility? and a staff member came to her apartment to check on her. Blood pressure was reportedly 256/140 and EMS was summoned. She states compliance with her medications. Patient's initial blood pressure in the emergency room was 256/140 IV medications were given patient INR was 3.6. Patient has been managed very well currently on all home medications will start patient on losartan 50 mg q.day as well. Patient has history of aortic valve replacement for which he takes warfarin to continue to monitor warfarin levels every 3rd day. Patient's blood sugars are better controlled patient blood pressure has been controlled, urine cultures are negative DC antibiotics patient is ready for discharge back to the skilled facility Time Spent with Patient Time attestation: Total time spent providing and/or coordinating discharge services: Exam Narrative: GENERAL: Well appearing, well-nourished, non-toxic, in no acute distress. HEAD: Normocephalic, atraumatic. NECK: Supple. No adenopathy, no masses. RESPIRATORY: Airway patent, respirations nonlabored. Clear to auscultation bilaterally, no rales, rhonchi, wheezing. CARDIOVASCULAR: Regular rate and rhythm without murmurs, rubs, or gallops. Peripheral pulses 2+ and equal bilaterally. ABDOMINAL: Soft, nontender, nondistended, no hepatosplenomegaly. Normoactive BS. MUSCULOSKELETAL: no Epigastric and no hypochondrial tenderness SKIN: Warm, dry, normal color. No rashes. NEURO: A&O X3. Moves all extremities PSYCHIATRIC: Appropriate mood and affect. Normal interaction. DS: Data Data Completed and Pending Labs on day of discharge: Labs from last 24 hours 12/14/22 12/13/22 08:19 20:37 PT 22.0 H 26.1 H D INR 2.0 2.5 Discharge Plan Discharge Discharging Clinician: Conner Hand Patient Disposition: SNF Activity: as tolerated Diet: diabetic Discharge Instructions: Continue to take warfarin as recommended. Continue to monitor blood pressure. Follow-up PCP in 1 week Patient Instructions: Warfarin (By mouth), Heart Failure (DC), Safe Use of Anticoagulants (DC) Stand Alone Forms: General Discharge Information Discharge Medications: New losartan 50 mg tablet 50 mg PO DAILY Qty: 30 0RF Continued carvedilol [Coreg] 25 mg Tablet 3.125 mg PO BID atorvastatin [Lipitor] 10 mg Tablet 10 mg PO HS alendronate [Fosamax] 70 mg Tablet 70 mg PO WEEKLY Rx Instructions: Saturdays spironolactone [Aldactone] 25 mg Tablet
== END 2022-12-14 12:05 | DRG 304 ==
LOC: ANHED 13:32 → ANH2MED 15:36
PROVIDERS: Nurse Practitioner; Physician Assistant; Admitting Provider Internal Medicine; Emergency Provider Emergency Medicine; PCP Nurse Practitioner Family; Visit Provider Internal Medicine
DX: I16.0 Hypertensive urgency (principal); I50.43 Acute on chronic combined systolic (congestive) and diastolic (congestive) heart failure; N39.0 Urinary tract infection, site not specified; G47.33 Obstructive sleep apnea (adult) (pediatric); E53.8 Deficiency of other specified B group vitamins; E11.22 Type 2 diabetes mellitus with diabetic chronic kidney disease; E78.5 Hyperlipidemia, unspecified; I13.0 Hypertensive heart and chronic kidney disease with heart failure and stage 1 through stage 4 chronic kidney disease, or unspecified chronic kidney disease; J44.9 Chronic obstructive pulmonary disease, unspecified; M10.9 Gout, unspecified; M81.0 Age-related osteoporosis without current pathological fracture; N18.30 Chronic kidney disease, stage 3 unspecified; Z20.822 Contact with and (suspected) exposure to COVID-19; Z95.2 Presence of prosthetic heart valve; Z87.891 Personal history of nicotine dependence; Z79.01 Long term (current) use of anticoagulants; Z86.73 Personal history of transient ischemic attack (TIA), and cerebral infarction without residual deficits; Z99.89 Dependence on other enabling machines and devices; Z87.442 Personal history of urinary calculi; Z90.49 Acquired absence of other specified parts of digestive tract; Z90.710 Acquired absence of both cervix and uterus; Z95.0 Presence of cardiac pacemaker
CPT/HCPCS: 36415; 70450; 71045; 80048; 80053; 81001; 83880; 84484; 85025; 85610; 85730; 87086; 87088; 87636; 93005; 96365; 96366; 96375; 99285; A9270; G0378; J0696; J1940

== ENCOUNTER 2023-01-12 12:11 | Emergency (ER) | payer MEDICARE, SELFPAY ==
[2023-01-12] VITALS (21 sets, daily range): BP systolic 138–166; BP diastolic 67–125; PULSE 56–91; RESP 16–24; TEMP 36.6–36.9; O2SAT 97–100
--- NOTE | ~2023-01-12 | XR_ITS ---
XR chest 1V portable 01/12/2023 17:27 Indication: Shortness of breath Procedure: AP portable chest Comparison: Comparison to multiple prior studies sequentially, with oldest reviewed study dated 04/06. Findings: Cardiomegaly with mild interstitial edema. Status post median sternotomy for CABG. No signi ficant effusion. No pneumothorax. Pacemaker leads are stable. There are changes of mitral valve repla cement. Impression: 1: Cardiomegaly with mild interstitial edema. Reviewed, dictated and finalized at location A. ET LIGHT INSPECTOR Impression: 1: Cardiomegaly with mild interstitial edema.
[2023-01-12 12:45] LABS: Basophils Percent Auto 0.5 % (0.2-1.2); Eosinophils Absolute Auto 0.1 K/mm3 (0-0.3); Eosinophils Percent Auto 1.5 % (0-4.4); Hematocrit 37.1 % (37.0-47.0); Hemoglobin 11.8 g/dL (12.0-15.0); Immature Granulocyte Absolute 0.03 K/mm3 (0.00-0.031); Immature Granulocyte Percent A 0.5 % (0-0.5); Lymphocytes Absolute Auto 0.59 K/mm3 (0.9-3.2); Lymphocytes Percent Auto 9.5 % (18.3-44.2); Mean Corpuscular HGB Conc 31.8 g/dl (32-36); Mean Corpuscular Hemoglobin 30.3 pg (26-34); Mean Corpuscular Volume 95.1 fl (80-100); Mean Platelet Volume 9.7 fl (7.4-10.4); Monocytes Absolute Auto 0.7 K/mm3 (0.1-0.6); Monocytes Percent Auto 11.6 % (2.6-8.5); Neutrophils Absolute Auto 4.7 K/mm3 (1.3-6.7); Neutrophils Percent Auto 76.4 % (45.5-73.1); Platelet Count Result 121 k/mm3 (150-375); Red Cell Distribution Width 18.1 % (11.5-14.5); White Blood Count 6.2 K/mm3 (4.5-10.0)
[2023-01-12 12:58] LABS: Alanine Aminotransferase 20 U/L (6-35); Albumin Level 3.4 g/dL (3.5-5.1); Alkaline Phosphatase 95 U/L (38-126); Anion Gap 5 mmol/L (8-16); Aspartate Amino Transferase 27 U/L (14-36); Bilirubin,Total 1.4 mg/dL (0.2-1.3); Blood Urea Nitrogen 19 mg/dL (7-17); Calcium 9.6 mg/dL (8.4-10.2); Carbon Dioxide 25 mmol/L (22-30); Chloride 109 mmol/L (98-107); Estimated Glomerular Filt Rate 40; Glucose 97 mg/dL (65-110); Lipase 181 U/L (23-300); Sodium 139 mmol/L (137-145)
--- NOTE | 2023-01-12 15:02 | ED.SOB ---
HPI - SOB/Dyspnea General Chief Complaint: Shortness of Breath/Dyspnea Stated Complaint: dyspnea Time Seen by Provider: 01/12/23 14:50 History of Present Illness HPI Narrative: Patient is a 77-year-old female with a history of dementia, hypertension, heart failure, hyperlipidemia presenting with shortness of breath. Patient states that she has had worsening dyspnea over the last several days. She also complains of a worsening cough. States that she has to sit straight up in order to feel comfortable. States she has difficulty breathing when lying flat. States that she has had multiple episodes of emesis but currently she does not feel nauseated. She denies any chest pain or abdominal pain. No fevers or chills. No dysuria or diarrhea. Denies leg swelling. Related Data Home Medications Medication Instructions Recorded Confirmed alendronate 70 mg tablet (Fosamax) 70 mg PO WEEKLY 03/04/21 12/12/22 atorvastatin 10 mg tablet (Lipitor) 10 mg PO HS 03/04/21 12/12/22 budesonide 160 mcg-glycopyr 9 2 inh inhalation BID 03/04/21 12/12/22 mcg-formot 4.8 mcg/actuation HFA inhaler (BrezSoufuni Enterra Feedphere) carvedilol 25 mg tablet (Coreg) 3.125 mg PO BID 03/04/21 12/12/22 semaglutide 1 mg/dose (2 mg/1.5 1 mg subcut WEEKLY 03/04/21 12/12/22 mL) subcutaneous pen injector (Ozempic) spironolactone 25 mg tablet 12.5 mg PO DAILY 03/04/21 12/12/22 (Aldactone) warfarin 2 mg tablet (Jantoven) 3 mg PO HS 04/06/22 12/12/22 azelastine 137 mcg (0.1 %) nasal 2 spray intranasal BID 12/12/22 12/12/22 spray aerosol dapagliflozin 10 mg tablet 10 mg PO DAILY 12/12/22 12/12/22 (Farxiga) donepezil 5 mg tablet 5 mg PO HS 12/12/22 12/12/22 fluticasone propionate 50 1 spray intranasal BID 12/12/22 12/12/22 mcg/actuation nasal spray,suspension ropinirole 1 mg tablet 1 mg PO HS 01/17/23 01/17/23 Allergies Allergy/AdvReac Type Severity Reaction Status Date / Time codeine AdvReac Mild Nausea Verified 01/12/23 14:50 Review of Systems Review of Systems: All systems reviewed & are unremarkable except as noted in HPI and below PMFSH Past Medical History Medical History B12 deficiency B12 deficiency Chronic anticoagulation Chronic kidney disease, stage 3 Chronic obstructive pulmonary disease Gout Heart failure Echocardiogram in March 2022 showed mildly reduced LV systolic function with an EF of 50% and abnormal diastolic function. Hypertension Kidney stones Obstructive sleep apnea On APAP. Osteoporosis Type 2 diabetes mellitus Urinary frequency Urinary incontinence Surgical History Surgical History History of appendectomy History of hysterectomy History of mitral valve replacement with mechanical valve (04/2006) Saint Loc valve. History of permanent cardiac pacemaker placement Family History Family History Mother Family history of coronary artery disease Social History Social History Social History: Surrogate medical decision maker: Deneen Winn or Corinne Hensley, daughters. Code status: Full code. Smoking packs per day: 3 Smoking cigarettes per day: 60.0 Years smoked: 12 Smoking pack-years: 36.00 Smoking status: Former smoker Alcohol intake: never Substance use: never Lack of Transportation: No Lack of Food: Never True Current Housing: I Have Housing Concerned About Future Housing: No Difficulty Paying Gas/Electric Bills: No Difficulty Paying for Meds: No Currently Unemployed: No Education: Associate Degree Difficulty w/ Childcare or Family Care: No Additional living arrangements comments: Assisted living at [place]. Spiritual care concerns: No Course Vital Signs Vital signs: Vital Signs Temperature 98.5 F 01/12/23 12:22 Pulse Rate
[2023-01-12 15:28] LABS: Appearance Urine Clear (Clear); Bilirubin Urine Negative (Negative); Blood Urine 1+ (Negative); Color Urine Yellow (Yellow); Glucose Urine UA 2+ mg/dL (Negative); Ketones Urine Negative (Negative); Leukocyte Esterase Ur Negative LEU/UL (Negative); Nitrate Urine Negative (Negative); Protein Urine 3+ mg/dL (Negative); Specific Grav Ur >= 1.030 (1.001-1.035); Urobilinogen Urine 0.2 mg/dL (<2.0); pH Urine 5.5 (5.0-9.0)
[2023-01-12 15:37] LABS: Mucus Urine Rare /lpf; Squamous Epithelial Cell Urine Occasional /hpf (Few)
[2023-01-12 15:38] LABS: Add Urine Microscopic? YES
[2023-01-12] MEDS: IPRATROPIUM BR 0.02% INH SOLN 0.5 MG/2.5 ML VIAL INHALATION (16:43)
[2023-01-12] MEDS: ALBUTEROL SULFATE NEB 2.5 MG/3 ML INH 5 MG INHALATION (16:43)
[2023-01-12 17:02] LABS: INR 2.4; Partial Thromboplastin Time 39.2 SECONDS (22.3-36.8); Prothrombin Time 25.4 Seconds (11.1-14.7)
[2023-01-12 17:07] LABS: NT Pro B Type Natriuretic Pept 2590 pg/mL (19.9-100); Troponin I 0.025 ng/mL (0.000-0.034)
[2023-01-12 17:18] LABS: Influenza A QL RT-PCR Negative (Negative); Influenza B QL RT-PCR Negative (Negative); RSV RNA, RT-PCR Negative (Negative); SARS-CoV-2 RNA PCR Negative
[2023-01-12] MEDS: MICONAZOLE NITRATE 2% CREAM 30 GM TUBE 1 APPLIC TOPICAL (17:18)
[2023-01-12] MEDS: FUROSEMIDE INJ 40 MG/4 ML VIAL 20 MG IV PUSH (19:07)
[2023-01-12] MEDS: hydrOXYzine HCL 10 MG TABLET PO (19:07)
--- NOTE | 2023-01-12 19:21 | PC.NURSE ---
First encounter w/ pt. updated pt on plan of care. NAD, respiration even and unlabored.
== END 2023-01-12 20:51 ==
PROVIDERS: Emergency Medicine; Emergency Provider Emergency Medicine; PCP Nurse Practitioner Family
DX: R06.02 Shortness of breath (principal); L30.4 Erythema intertrigo; Z20.822 Contact with and (suspected) exposure to COVID-19; F03.90 Unspecified dementia, unspecified severity, without behavioral disturbance, psychotic disturbance, mood disturbance, and anxiety; I13.0 Hypertensive heart and chronic kidney disease with heart failure and stage 1 through stage 4 chronic kidney disease, or unspecified chronic kidney disease; E11.22 Type 2 diabetes mellitus with diabetic chronic kidney disease; N18.30 Chronic kidney disease, stage 3 unspecified; I50.9 Heart failure, unspecified; E78.5 Hyperlipidemia, unspecified; E53.8 Deficiency of other specified B group vitamins; G47.33 Obstructive sleep apnea (adult) (pediatric); M81.0 Age-related osteoporosis without current pathological fracture; R32 Unspecified urinary incontinence; Z90.710 Acquired absence of both cervix and uterus; Z95.2 Presence of prosthetic heart valve; Z95.0 Presence of cardiac pacemaker; Z87.442 Personal history of urinary calculi; Z87.891 Personal history of nicotine dependence; Z79.01 Long term (current) use of anticoagulants; Z79.85 Long-term (current) use of injectable non-insulin antidiabetic drugs; Z79.84 Long term (current) use of oral hypoglycemic drugs; I51.7 Cardiomegaly; J81.1 Chronic pulmonary edema
CPT/HCPCS: 36415; 51701; 71045; 80053; 81001; 83690; 83880; 84484; 85025; 85610; 85730; 87077; 87086; 87186; 87637; 94640; 96374; 99284; A9270; J1940

== ENCOUNTER 2023-03-04 15:29 | Emergency (ER) | payer MEDICARE, SELFPAY ==
--- NOTE | ~2023-03-04 | CT_ITS ---
EXAMINATION: CT brain wo con DATE: 03/04/2023 16:52 INDICATION: fall . TECHNIQUE: Computed tomography (CT) of the head was performed without intravenous contrast. The mA wa s adjusted according to patient size. Iterative reconstruction technique was employed. The dose-lengt h product was 605.33 mGy-cm. COMPARISON: 12/12/2022. FINDINGS: No acute intracranial hemorrhage or extra-axial fluid collection. No hydrocephalus, mass, or herniation. No acute ischemic infarct. Unremarkable dural venous sinus attenuation. No acute osseous abnormality. Left posterior parietal scalp contusion/laceration, near the vertex The aerated spaces are clear. Mild atrophy and chronic white matter change. Atherosclerotic intracranial calcification. Bilateral l ens replacements. IMPRESSION: No acute intracranial process. Reviewed, dictated and finalized at location K.
--- NOTE | ~2023-03-04 | CT_ITS ---
EXAMINATION: CT cervical spine wo con DATE: 03/04/2023 16:52 INDICATION: fall TECHNIQUE: Computed tomography (CT) of the cervical spine was performed without intravenous contrast. Automated exposure control and iterative reconstruction technique were employed. The dose-length pro duct was 211.99 mGy-cm. COMPARISON: 07/03/2016. FINDINGS: Vertebral Body Alignment: Intact. Cervical spine straightening as can occur with positioning or muscl e spasm. Craniocervical and atlantoaxial alignment: Moderate degenerative change. Alignment intact. Osseous structures/fracture: No evidence of a lytic or blastic process in the visualized spine. No e vidence of acute fracture. . Cervical soft tissues: The paraspinal soft tissues planes are maintained. Partially visualized sterno joyce wires and left-sided pacer wire. Degenerative changes: Degenerative changes, without severe neural foraminal or central canal narrowin g. IMPRESSION: No acute fracture or traumatic malalignment in the cervical spine. Reviewed, dictated and finalized at location K.
[2023-03-04 15:30] VITALS: BP 173/96; PULSE 79; RESP 18; TEMP 36.6; O2SAT 100
--- NOTE | 2023-03-04 16:12 | ED.FALL ---
HPI - Fall General Chief Complaint: Fall Stated Complaint: fall Time Seen by Provider: 03/04/23 15:31 Source: patient and EMS Mode of arrival: EMS Limitations: no limitations History of Present Illness HPI Narrative: 77 years old white female tripped and fell backward, struck the back of her head, no loss of consciousness, denies other injuries. Patient on Coumadin. Unknown last tetanus shot. complaint: fall Related Data Home Medications Medication Instructions Recorded Confirmed alendronate 70 mg tablet (Fosamax) 70 mg PO WEEKLY 03/04/21 12/12/22 atorvastatin 10 mg tablet (Lipitor) 10 mg PO HS 03/04/21 12/12/22 budesonide 160 mcg-glycopyr 9 2 inh inhalation BID 03/04/21 12/12/22 mcg-formot 4.8 mcg/actuation HFA inhaler (Breztri Aerosphere) carvedilol 25 mg tablet (Coreg) 3.125 mg PO BID 03/04/21 12/12/22 semaglutide 1 mg/dose (2 mg/1.5 1 mg subcut WEEKLY 03/04/21 12/12/22 mL) subcutaneous pen injector (Ozempic) warfarin 2 mg tablet (Jantoven) 3 mg PO HS 04/06/22 12/12/22 azelastine 137 mcg (0.1 %) nasal 2 spray intranasal BID 12/12/22 12/12/22 spray aerosol dapagliflozin 10 mg tablet 10 mg PO DAILY 12/12/22 12/12/22 (Farxiga) donepezil 5 mg tablet 5 mg PO HS 12/12/22 12/12/22 fluticasone propionate 50 1 spray intranasal BID 12/12/22 12/12/22 mcg/actuation nasal spray,suspension ropinirole 1 mg tablet 1 mg PO HS 12/12/22 12/12/22 Allergies Allergy/AdvReac Type Severity Reaction Status Date / Time codeine AdvReac Mild Nausea Verified 02/06/23 16:27 Review of Systems Review of Systems: All systems reviewed & are unremarkable except as noted in HPI and below [facility] Past Medical History Medical History B12 deficiency B12 deficiency Chronic anticoagulation Chronic kidney disease, stage 3 Chronic obstructive pulmonary disease Gout Heart failure Echocardiogram in March 2022 showed mildly reduced LV systolic function with an EF of 50% and abnormal diastolic function. Hypertension Kidney stones Obstructive sleep apnea On APAP. Osteoporosis Type 2 diabetes mellitus Urinary frequency Urinary incontinence Surgical History Surgical History History of appendectomy History of hysterectomy History of mitral valve replacement with mechanical valve (04/2006) Saint Loc valve. History of permanent cardiac pacemaker placement Family History Family History Mother Family history of coronary artery disease Social History Social History Social History: Surrogate medical decision maker: Deneen Winn or Corinne Sloanbon, daughters. Code status: Full code. Smoking packs per day: 3 Smoking cigarettes per day: 60.0 Years smoked: 18 Smoking pack-years: 54.00 Smoking status: Former smoker Tobacco type: cigarettes Second hand tobacco smoke exposure: No Alcohol intake: never Substance use: never Lack of Transportation: No Lack of Food: Never True Current Housing: I Have Housing Concerned About Future Housing: No Difficulty Paying Gas/Electric Bills: No Difficulty Paying for Meds: No Currently Unemployed: No Education: Associate Degree Difficulty w/ Childcare or Family Care: No Additional living arrangements comments: Assisted living at [place]. Spiritual care concerns: No Exam Narrative: General appearance: Well-developed, well-nourished Skin: Normal color Head: Normocephalic, contused occipital laceration 3 x 2 cm does not need stitches Eyes: Clear conjunctiva Neck: Supple, nontender Chest and respiratory: Airway patent, no respiratory distress, no accessory muscle use Heart: Regular rate/rhythm Vascular: Normal peripheral pulses, normal capillary refill. Musculoskeletal: Normal range of motion, nontender back Neurologic: Alert and
[2023-03-04] MEDS: TETANUS,DIPHTHERIA,AC PERTUSSIS ADULT (0.5 ML) BOOSTRIX IM (16:28)
[2023-03-04 17:02] VITALS: BP 131/65; PULSE 61; RESP 17; O2SAT 100
[2023-03-04 18:10] VITALS: BP 168/74; PULSE 62; RESP 16; O2SAT 98
== END 2023-03-04 18:11 | disposition home or self-care (01) ==
PROVIDERS: Emergency Provider Emergency Medicine; PCP Nurse Practitioner Family
DX: S01.01XA Laceration without foreign body of scalp, initial encounter (principal); Z23 Encounter for immunization; E11.22 Type 2 diabetes mellitus with diabetic chronic kidney disease; I13.0 Hypertensive heart and chronic kidney disease with heart failure and stage 1 through stage 4 chronic kidney disease, or unspecified chronic kidney disease; N18.30 Chronic kidney disease, stage 3 unspecified; I50.9 Heart failure, unspecified; J44.9 Chronic obstructive pulmonary disease, unspecified; E53.8 Deficiency of other specified B group vitamins; M10.9 Gout, unspecified; G47.33 Obstructive sleep apnea (adult) (pediatric); Z95.2 Presence of prosthetic heart valve; Z90.710 Acquired absence of both cervix and uterus; Z87.442 Personal history of urinary calculi; Z87.891 Personal history of nicotine dependence; Z79.01 Long term (current) use of anticoagulants; Z79.85 Long-term (current) use of injectable non-insulin antidiabetic drugs; W01.0XXA Fall on same level from slipping, tripping and stumbling without subsequent striking against object, initial encounter
CPT/HCPCS: 70450; 72125; 90471; 90715; 99282; 99284

== ENCOUNTER 2023-05-17 14:46 | Outpatient (CLI) | payer MEDICARE, SELFPAY ==
--- NOTE | ~2023-05-17 | MM_ITS ---
EXAMINATION: MM screening [facility] HISTORY: Screening mammogram TECHNIQUE: Craniocaudal and mediolateral oblique 3-D tomosynthesis images were obtained and synthetic 2-D images were generated. CAD analysis was submitted and interpreted. COMPARISON: Serial screening mammograms dating back to 10/03/2019 BREAST PARENCHYMAL COMPOSITION: There are scattered areas of fibroglandular density. FINDINGS: Numerous calcifications including prominent arterial calcifications are noted bilaterally. There is no evidence of suspicious mass, calcification, or architectural distortion to suggest malign josiah in either breast. There has been no suspicious interval change. IMPRESSION: 1. No mammographic evidence of malignancy. 2. Recommend routine screening mammography in one year. BI-RADS Category 2: Benign finding(s). Reviewed, dictated and finalized at location A.
== END 2023-05-17 14:47 | disposition home or self-care (01) ==
LOC: ANHIMG 14:48
PROVIDERS: PCP Nurse Practitioner Family; Visit Provider Nurse Practitioner Family
DX: Z12.31 Encounter for screening mammogram for malignant neoplasm of breast (principal)
CPT/HCPCS: 77063; 77067

== ENCOUNTER 2023-10-10 09:20 | Outpatient (CLI) | payer MEDICARE, SELFPAY ==
--- NOTE | ~2023-10-10 | DEXA_ITS ---
Bone Density Report Name: MAI MCCULLOUGH Age: 78 Sex: Female Ethnicity: White Date of : 1945 Indication: osteopenia; height loss; hysterectomy;postmenopausal Referring Provider: MELVI, FARZAD Goldman Study: Bone densitometry was performed. Exam Date: October 10, 2023 Accession number: [id number] Bone Density: Region BMD T-score Z-score Classification AP Spine(L1-L4) 0.966 -0.7 2.0 Normal Femoral Neck (Left) 0.515 -3.0 -0.7 Osteoporosis Total Hip (Left) 0.713 -1.9 0.2 Osteopenia Femoral Neck (Right) 0.403 -4.0 -1.7 Osteoporosis Total Hip (Right) 0.656 -2.3 -0.3 Osteopenia Total Hip Mean 0.685 -2.1 -0.1 Osteopenia World Health Organization criteria for BMD impression classify patients as: Normal (T-score at or above -1.0), Osteopenia (T-score between -1.0 and -2.5), or Osteoporosis (T-score at or below -2.5). 10-year Fracture Risk: FRAX not reported because: Some T-score for Spine Total or Hip Total or Femoral Neck at or below -2.5 Previous Exams: Region Exam Age BMD T-score BMD Change BMD Change Date g/cm2 vs Baseline vs Previous AP Spine (L1-L4) 10/10/2023 78 0.966 -0.7 -0.026 (-2.6%) -0.026 (-2.6%) 09/19/2017 72 0.992 -0.5 Total Hip(Left) 10/10/2023 78 0.713 -1.9 -0.087 (-10.9% -0.087 (-10.9% 09/19/2017 72 0.800 -1.2 Total Hip(Right) 10/10/2023 78 0.656 -2.3 -0.113 (-14.7% -0.113 (-14.7% 09/19/2017 72 0.769 -1.4 *Denotes significance at 95% confidence level, LSC for AP Spine = 0.022 g/cm2, LSC for Total Hip = 0.027 g/cm2 # Denotes dissimilar scan types or analysis methods Clinical Information Provided by Patient: Has used the following medications: Vitamin D Has the following medical conditions: Hysterectomy Patient maximum height was 67 Menopause Age: 39 Onset of menses at age 10 Number of children 2 Impression: The patient has osteoporosis, based on the Right Femoral Neck T-score. The BMD for the AP Spine (L1-L4) decreased, changing by -2.6% since the last DXA exam. The BMD for the Total Hip(Left) decreased, changing by -10.9% since the last DXA exam. Discussion: INCREASED RISK OF FRACTURE. BONE DENSITY IS UNDESIRABLY LOW AT ONE OR MORE SKELETAL SITES, CONSISTENT WITH POSTMENOPAUSAL OSTEOPOROSIS. This patient's lowest T-score meets the World Health Organization's (WHO) criteria for osteoporosis at one or more sites (T-score -2.5 or below). In untreated patients, the risk of osteoporotic fracture
== END 2023-10-10 09:21 | disposition home or self-care (01) ==
LOC: ANHIMG 09:22
PROVIDERS: PCP Nurse Practitioner Family; Visit Provider Nurse Practitioner Family
DX: M81.0 Age-related osteoporosis without current pathological fracture (principal); N95.1 Menopausal and female climacteric states; Z13.820 Encounter for screening for osteoporosis
CPT/HCPCS: 77080

== ENCOUNTER 2024-02-17 09:03 | Emergency (ER) | payer MEDICARE, SELFPAY ==
--- NOTE | ~2024-02-17 | CT_ITS ---
EXAMINATION: CT cervical spine wo con DATE: 02/17/2024 09:22 INDICATION: Status post fall. Neck pain. TECHNIQUE: Computed tomography (CT) of the cervical spine was performed without intravenous contrast. The dose-length product was 429 mGy-cm. Automated exposure control and iterative reconstruction tech nique were employed. COMPARISON: None FINDINGS: Reversal of cervical lordosis. Craniovertebral junction is normal. Odontoid process is norm al. There is degenerative anterolisthesis at C2-3 and C3-4. Vertebral body heights are maintained. Th ere is disc narrowing at C5-6. There is dextroscoliosis. There is mild multilevel uncinate and facet hypertrophy. Lung apices are normal. No evidence for perched facet. No significant paraspinal soft ti ssue abnormality. There is carotid atherosclerosis. IMPRESSION: 1. No acute abnormality of the cervical spine. 2: Moderate cervical spondylosis. Reviewed, dictated and finalized at location A.
--- NOTE | ~2024-02-17 | CT_ITS ---
EXAMINATION: CT brain wo con DATE: 02/17/2024 09:22 INDICATION: Status post fall. Head injury. TECHNIQUE: Computed tomography (CT) of the head was performed without intravenous contrast. The dose- length product was 605.33 mGy-cm. Automated exposure control and iterative reconstruction technique w ere employed. COMPARISON: CT dated 03/04/2023 FINDINGS: Generalized atrophy. There are scattered mild periventricular and subcortical white matter changes, most likely related to small vessel ischemic disease (microangiopathy). Small chronic right cerebellar infarction. No acute intracranial hemorrhage, infarction, mass or mass effect. No ventricu lomegaly or midline shift. Basilar cisterns are patent. Paranasal sinuses and mastoids are pneumatize d. No depressed skull fractures. IMPRESSION: 1. No acute intracranial abnormality. 2: Chronic right cerebellar infarction. 3: Chronic age-related findings. Reviewed, dictated and finalized at location A.
[2024-02-17 09:06] VITALS: BP 157/71; PULSE 65; RESP 20; TEMP 36.2; O2SAT 97
--- NOTE | 2024-02-17 09:46 | ED.FALL ---
HPI - Fall General Chief Complaint: Fall Stated Complaint: fall Time Seen by Provider: 02/17/24 09:05 History of Present Illness HPI Narrative: 78-year-old female history of MAC, type 2 diabetes, CHF, COPD, hypertension, prior CVA and chronic anticoagulation with Coumadin presents to the emergency department for ground level fall that occurred prior to arrival. Patient states she was ambulating with her walker down the hallway at her [facility] when she lost her balance and fell. Reports hitting her head against the wall, no LOC. She presents today with her daughter at bedside and has no complaints. She denies headache vision changes, focal numbness or weakness, neck pain or back pain, extremity injury, chest pain, abdominal pain. She endorses shortness of breath that is unchanged from her baseline. No fevers. patient is also reporting a skin tear to her right forearm that occurred this morning. States the nurses in her room when her bracelet got caught on the patient's skin and tore it. Patient states the wound was closed with Steri strips, Mepilex overlying Wound. Last Tdap unknown. Related Data Home Medications Medication Instructions Recorded Confirmed alendronate 70 mg tablet (Fosamax) 70 mg PO WEEKLY 03/04/21 12/12/22 atorvastatin 10 mg tablet (Lipitor) 10 mg PO HS 03/04/21 12/12/22 budesonide 160 mcg-glycopyr 9 2 inh inhalation BID 03/04/21 12/12/22 mcg-formot 4.8 mcg/actuation HFA inhaler (Breztri Aerosphere) carvedilol 25 mg tablet (Coreg) 3.125 mg PO BID 03/04/21 12/12/22 semaglutide 1 mg/dose (2 mg/1.5 1 mg subcut WEEKLY 03/04/21 12/12/22 mL) subcutaneous pen injector (Ozempic) warfarin 2 mg tablet (Jantoven) 3 mg PO HS 04/06/22 12/12/22 azelastine 137 mcg (0.1 %) nasal 2 spray intranasal BID 12/12/22 12/12/22 spray aerosol dapagliflozin propanediol 10 mg 10 mg PO DAILY 12/12/22 12/12/22 tablet (Farxiga) donepezil 5 mg tablet 5 mg PO HS 01/17/23 01/17/23 fluticasone propionate 50 1 spray intranasal BID 12/12/22 12/12/22 mcg/actuation nasal spray,suspension ropinirole 1 mg tablet 1 mg PO HS 12/12/22 12/12/22 Allergies Allergy/AdvReac Type Severity Reaction Status Date / Time codeine AdvReac Mild Nausea Verified 02/06/23 16:27 Review of Systems Review of Systems: CONSTITUTIONAL: Denies fever, chills, or sweats. EYES: Denies visual changes, redness, or discharge. ENT: Denies rhinorrhea, congestion, sore throat, or otalgia. CARDIOVASCULAR: Denies chest pain, palpitations, or edema. RESPIRATORY: Denies cough or dyspnea. GASTROINTESTINAL: Denies abdominal pain, nausea, vomiting, or diarrhea. GENITOURINARY: Denies dysuria or hematuria. SKIN: Denies rash or itching. MUSCULOSKELETAL: Denies back pain, joint pain, or myalgia. NEUROLOGIC: Denies headache, numbness, or weakness. PSYCHIATRIC: Denies anxiety or depression. [facility] Past Medical History Medical History B12 deficiency B12 deficiency Chronic anticoagulation Chronic kidney disease, stage 3 Chronic obstructive pulmonary disease Gout Heart failure Echocardiogram in March 2022 showed mildly reduced LV systolic function with an EF of 50% and abnormal diastolic function. Hypertension Kidney stones Obstructive sleep apnea On APAP. Osteoporosis Type 2 diabetes mellitus Urinary frequency Urinary incontinence Surgical History Surgical History History of appendectomy History of hysterectomy History of mitral valve replacement with mechanical valve (04/2006) Saint Loc valve. History of permanent cardiac pacemaker placement Family History Family History Mother Family history of coronary artery disease Social History Social History Social History: Surrogate medical decision maker: Deneen Jalloh
[2024-02-17] MEDS: TETANUS,DIPHTHERIA,AC PERTUSSIS ADULT (0.5 ML) BOOSTRIX IM (10:19)
[2024-02-17 10:22] VITALS: BP 110/60; PULSE 75; RESP 20; O2SAT 100
== END 2024-02-17 10:30 ==
PROVIDERS: Emergency Provider Physician Assistant
DX: S09.90XA Unspecified injury of head, initial encounter (principal); S51.811A Laceration without foreign body of right forearm, initial encounter; Z23 Encounter for immunization; I50.9 Heart failure, unspecified; E11.22 Type 2 diabetes mellitus with diabetic chronic kidney disease; I13.0 Hypertensive heart and chronic kidney disease with heart failure and stage 1 through stage 4 chronic kidney disease, or unspecified chronic kidney disease; N18.30 Chronic kidney disease, stage 3 unspecified; J44.9 Chronic obstructive pulmonary disease, unspecified; G47.33 Obstructive sleep apnea (adult) (pediatric); E53.8 Deficiency of other specified B group vitamins; R32 Unspecified urinary incontinence; M81.0 Age-related osteoporosis without current pathological fracture; Z95.2 Presence of prosthetic heart valve; Z95.0 Presence of cardiac pacemaker; Z86.73 Personal history of transient ischemic attack (TIA), and cerebral infarction without residual deficits; Z87.442 Personal history of urinary calculi; Z87.891 Personal history of nicotine dependence; Z90.710 Acquired absence of both cervix and uterus; Z79.01 Long term (current) use of anticoagulants; Z79.85 Long-term (current) use of injectable non-insulin antidiabetic drugs; W18.39XA Other fall on same level, initial encounter; W26.8XXA Contact with other sharp object(s), not elsewhere classified, initial encounter
CPT/HCPCS: 70450; 72125; 90471; 90715; 99284

== ENCOUNTER 2024-03-29 12:49 | Emergency (ER) | payer MEDICARE, SELFPAY ==
--- NOTE | ~2024-03-29 | XR_ITS ---
EXAM: XR ankle RT min 3V DATE: 03/29/2024 13:52 HISTORY: LATERAL ankle pain after fall . COMPARISON: None available. FINDINGS: Normal mineralization. No fracture or dislocation. No lytic or blastic lesion. Joint space s are maintained. No erosion or periosteal change. Vascular calcifications. IMPRESSION: No acute osseous finding in the right ankle. Reviewed, dictated and finalized at location K.
--- NOTE | ~2024-03-29 | CT_ITS ---
EXAMINATION: CT cervical spine wo con DATE: 03/29/2024 13:46 INDICATION: fall/scalp hematoma/coumadin use TECHNIQUE: Computed tomography (CT) of the cervical spine was performed residual fat-containing H. Pa ul, Q intravenous contrast. Automated exposure control and iterative reconstruction technique were em ployed. The dose-length product was 479.02 mGy-cm. COMPARISON: None. FINDINGS: Vertebral Body Alignment: Stable grade 1 anterolistheses at C3-4 and C4-5. Craniocervical and atlantoaxial alignment: Moderate degenerative change. Alignment intact. Osseous structures/fracture: No evidence of a lytic or blastic process in the visualized spine. No e vidence of acute fracture. Cervical soft tissues: The paraspinal soft tissues planes are maintained. Mild septal thickening in t he upper lungs. Degenerative changes: Degenerative changes, without severe neural foraminal or central canal narrowin g. IMPRESSION: No acute fracture or traumatic malalignment in the cervical spine. Mild interstitial edema. Reviewed, dictated and finalized at location K.
--- NOTE | ~2024-03-29 | CT_ITS ---
EXAMINATION: CT brain wo con DATE: 03/29/2024 13:46 INDICATION: Anticoagulated patient post fall with scalp hematoma TECHNIQUE: Computed tomography (CT) of the head was performed without intravenous contrast. Sagittal and coronal reconstructions were performed. The mA was adjusted according to patient size. Iterative reconstruction technique was employed. The dose-length product was 605.33 mGy-cm. COMPARISON: head CT dated 02/17/2024 FINDINGS: Small posterior scalp hematoma. No fracture. Small old infarcts in the bilateral cerebellar hemispher es. No acute intracranial hemorrhage, acute infarction or abnormal extra axial fluid collection. Ther e is mild scattered white matter hypoattenuation consistent with chronic small vessel ischemic diseas e. Symmetric prominence of the sulci consistent with mild to moderate age-appropriate diffuse cerebra l volume loss. Ventricles are normal and symmetric. No mass/mass effect. Changes of bilateral intrao cular lens replacement. The orbits, paranasal sinuses and mastoid air cells are normal. IMPRESSION: 1. No fracture or acute intracranial process. 2. Small old lacunar infarcts at the bilateral cerebellar hemispheres. 3. Age-related changes including mild to moderate diffuse volume loss and mild scattered white matter hypoattenuation consistent with chronic small vessel ischemic disease. Reviewed, dictated and finalized at location A. IMPRESSION: 1. No fracture or acute intracranial process. 2. Small old lacunar infarcts at the bilateral cerebellar hemispheres. 3. Age-related changes including mild to moderate diffuse volume loss and mild scattered white matter hypoattenuation consistent with chronic small vessel isc hemic disease.
[2024-03-29 12:54] VITALS: BP 125/72; PULSE 63; RESP 16; O2SAT 100
--- NOTE | 2024-03-29 12:56 | ECG_ITS ---
SEE SCANNED COPY FOR CONFIRMED REPORT MTDD
--- NOTE | 2024-03-29 13:29 | ED.FALL ---
HPI - Fall General Chief Complaint: Fall Stated Complaint: FALL Time Seen by Provider: 03/29/24 12:56 History of Present Illness HPI Narrative: 78-year-old female presenting to the emergency department for evaluation after having a ground level fall. Patient states she was walking in a restaurant when she fell. Patient denies any lightheaded or dizziness prior to the fall. Patient denied loss consciousness prior to the fall. Patient denies any loss of consciousness as a result of the fall. Patient did fall backwards and struck her head. Patient does complain of tenderness at her posterior scalp and pain of the right ankle. Related Data Home Medications Medication Instructions Recorded Confirmed alendronate 70 mg tablet (Fosamax) 70 mg PO WEEKLY 03/04/21 12/12/22 atorvastatin 10 mg tablet (Lipitor) 10 mg PO HS 03/04/21 12/12/22 budesonide 160 mcg-glycopyr 9 2 inh inhalation BID 03/04/21 12/12/22 mcg-formot 4.8 mcg/actuation HFA inhaler (Arbovaxi Puralytics) carvedilol 25 mg tablet (Coreg) 3.125 mg PO BID 03/04/21 12/12/22 semaglutide 1 mg/dose (2 mg/1.5 1 mg subcut WEEKLY 03/04/21 12/12/22 mL) subcutaneous pen injector (Ozempic) warfarin 2 mg tablet (Jantoven) 3 mg PO HS 04/06/22 12/12/22 azelastine 137 mcg (0.1 %) nasal 2 spray intranasal BID 12/12/22 12/12/22 spray aerosol dapagliflozin propanediol 10 mg 10 mg PO DAILY 12/12/22 12/12/22 tablet (Farxiga) donepezil 5 mg tablet 5 mg PO HS 12/12/22 12/12/22 fluticasone propionate 50 1 spray intranasal BID 12/12/22 12/12/22 mcg/actuation nasal spray,suspension ropinirole 1 mg tablet 1 mg PO HS 12/12/22 12/12/22 Allergies Allergy/AdvReac Type Severity Reaction Status Date / Time codeine AdvReac Mild Nausea Verified 02/06/23 16:27 Review of Systems Review of Systems: All systems reviewed & are unremarkable except as noted in HPI and below PMFSH Past Medical History Medical History B12 deficiency B12 deficiency Chronic anticoagulation Chronic kidney disease, stage 3 Chronic obstructive pulmonary disease Gout Heart failure Echocardiogram in March 2022 showed mildly reduced LV systolic function with an EF of 50% and abnormal diastolic function. Hypertension Kidney stones Obstructive sleep apnea On APAP. Osteoporosis Type 2 diabetes mellitus Urinary frequency Urinary incontinence Surgical History Surgical History History of appendectomy History of hysterectomy History of mitral valve replacement with mechanical valve (04/2006) Saint Loc valve. History of permanent cardiac pacemaker placement Family History Family History Mother Family history of coronary artery disease Social History Social History Social History: Surrogate medical decision maker: Deneen Winn or Corinne Shellie, daughters. Code status: Full code. Smoking packs per day: 3 Smoking cigarettes per day: 60.0 Years smoked: 18 Smoking pack-years: 54.00 Smoking status: Former smoker Tobacco type: cigarettes Second hand tobacco smoke exposure: No Alcohol intake: never Substance use: never Lack of Transportation: No Lack of Food: Never True Current Housing: I Have Housing Concerned About Future Housing: No Difficulty Paying Gas/Electric Bills: No Difficulty Paying for Meds: No Currently Unemployed: No Education: Associate Degree Difficulty w/ Childcare or Family Care: No Additional living arrangements comments: Assisted living at [place]. Spiritual care concerns: No Exam Narrative: APPEARANCE: Well appearing, no pain, no distress, well-nourished. HEAD: normocephalic, posterior scalp hematoma. EYES: PERRLA/EOMI, conjunctivae clear. NOSE: Normal no drainage EARS:TMS clear with good light
[2024-03-29 15:30] VITALS: BP 119/67; PULSE 61; RESP 16; O2SAT 97
[2024-03-29 15:54] VITALS: BP 119/67; PULSE 61; RESP 16
== END 2024-03-29 15:54 ==
PROVIDERS: Emergency Provider Emergency Medicine
DX: S00.03XA Contusion of scalp, initial encounter (principal); S99.911A Unspecified injury of right ankle, initial encounter; I13.0 Hypertensive heart and chronic kidney disease with heart failure and stage 1 through stage 4 chronic kidney disease, or unspecified chronic kidney disease; E11.22 Type 2 diabetes mellitus with diabetic chronic kidney disease; N18.30 Chronic kidney disease, stage 3 unspecified; I50.1 Left ventricular failure, unspecified; J44.9 Chronic obstructive pulmonary disease, unspecified; E53.8 Deficiency of other specified B group vitamins; G47.33 Obstructive sleep apnea (adult) (pediatric); M10.9 Gout, unspecified; M81.0 Age-related osteoporosis without current pathological fracture; R32 Unspecified urinary incontinence; Z95.2 Presence of prosthetic heart valve; Z95.0 Presence of cardiac pacemaker; Z87.442 Personal history of urinary calculi; Z87.891 Personal history of nicotine dependence; Z90.710 Acquired absence of both cervix and uterus; Z79.85 Long-term (current) use of injectable non-insulin antidiabetic drugs; Z79.01 Long term (current) use of anticoagulants; W18.30XA Fall on same level, unspecified, initial encounter
CPT/HCPCS: 70450; 72125; 73610; 93005; 99284

== ENCOUNTER 2024-11-14 13:36 | Outpatient (CLI) | payer MEDICARE, SELFPAY ==
--- NOTE | ~2024-11-14 | MM_ITS ---
EXAMINATION: MM screening [facility] HISTORY: Screening TECHNIQUE: Craniocaudal and mediolateral oblique 3-D tomosynthesis images were obtained and synthetic 2-D images were generated. CAD analysis was submitted and interpreted. COMPARISON: Comparison to multiple prior studies sequentially, with oldest reviewed study dated 08/27. BREAST PARENCHYMAL COMPOSITION: Not dense: There are scattered areas of fibroglandular density. FINDINGS: There are developing asymmetries of the right breast centrally. The left breast is stable w ithout evidence for malignancy. There are benign bilateral breast calcifications. IMPRESSION: 1. Developing right breast asymmetries. 2. Additional mammographic views and possible breast ultrasound are recommended. BI-RADS Category 0: Incomplete: Needs additional imaging evaluation. Reviewed, dictated and finalized at location B. E CARE NURSE IMPRESSION: 1. Developing right breast asymmetries. 2. Additional mammographic views and possible breast ultrasound are recommended . BI-RADS Category 0: Incomplete: Needs additional imaging evaluation.
== END 2024-11-14 13:37 | disposition home or self-care (01) ==
LOC: ANHIMG 13:40
DX: Z13.1 Encounter for screening for diabetes mellitus (principal); R92.8 Other abnormal and inconclusive findings on diagnostic imaging of breast
CPT/HCPCS: 77063; 77067

== ENCOUNTER 2024-12-22 10:31 | Emergency (ER) | payer MEDICARE, SELFPAY ==
[2024-12-22] VITALS (31 sets, daily range): BP systolic 129–161; BP diastolic 57–80; PULSE 60–80; RESP 15–22; TEMP 36.3; O2SAT 93–100
--- NOTE | ~2024-12-22 | XR_ITS ---
XR chest 1V portable 12/22/2024 12:01 Indication: Productive cough and shortness of breath Procedure: AP portable chest Comparison: Comparison to multiple prior studies sequentially, with oldest reviewed study dated 05/24. Findings: Status post median sternotomy for CABG. There is prosthetic heart valve. Stable position to pacemaker leads. Cardiomegaly with interstitial edema. No significant effusion or pneumothorax. Impression: 1: Cardiomegaly with mild interstitial edema. Reviewed, dictated and finalized at location A. OYMENT SERVICES DIRECTOR Impression: 1: Cardiomegaly with mild interstitial edema.
--- NOTE | 2024-12-22 10:53 | ECG_ITS ---
Test Date: 2024-12-22 11:08:52 Measurements Intervals [place] Rate: 65 P: 0 WI: 0 QRS: -21 QRSD: 161 T: 144 QT: 455 QTc: 474 Interpretive Statements ELECTRONIC VENTRICULAR PACEMAKER ABNORMAL RHYTHM ECG No previous ECG available for comparison Electronically Signed On 12-22-2024 13:40:41 [facility] by Kate Monroy M.D.
--- NOTE | 2024-12-22 11:10 | ED_ITS ---
HPI - Fall General Chief Complaint: Fall Stated Complaint: gen. weakness Time Seen by Provider: 12/22/24 10:31 History of Present Illness HPI Narrative: Patient is an 79-year-old female who presents to the ER with complaints of weakness. She reports she fell 9 days ago, fell backwards, hit her head and went to the ER in [place]. Patient reports she was admitted to the hospital and was discharged 7 days later, 2 days ago. She reports she is on blood thinners. Patient reports she has felt weak for the past 2 days. She reports the nursing facility was concerned she had norovirus so she has been on ?isolation. Patient reports a history of diarrhea and vomiting over past 2 days. She denies recent fevers, abdominal pain, back pain, or chest pain. Patient endorses a history of diabetes, high blood pressure, constipation, and congestive heart failure. Related Data Home Medications ?Medication ?Instructions ?Recorded ?Confirmed ?Last Taken ?Type alendronate 70 mg tablet (Fosamax) 70 mg PO WEEKLY 03/04/21 05/12/24 Unknown History atorvastatin 10 mg tablet (Lipitor) 10 mg PO HS 03/04/21 05/12/24 Unknown History budesonide 160 mcg-glycopyr 9 2 inh inhalation BID 03/04/21 05/12/24 Unknown History mcg-formot 4.8 mcg/actuation HFA inhaler (Breztri Aerosphere) carvedilol 25 mg tablet (Coreg) 3.125 mg PO BID 03/04/21 05/12/24 04/06/22 09:00 History semaglutide 1 mg/dose (2 mg/1.5 1 mg subcut WEEKLY 03/04/21 05/12/24 Unknown History mL) subcutaneous pen injector (Ozempic) warfarin 2 mg tablet (Jantoven) 3 mg PO HS 04/06/22 05/12/24 04/05/22 History azelastine 137 mcg (0.1 %) nasal 2 spray intranasal BID 12/12/22 05/12/24 Unknown History spray dapagliflozin propanediol 10 mg 10 mg PO DAILY 12/12/22 05/12/24 Unknown History tablet (Farxiga) donepezil 5 mg tablet 5 mg PO HS 12/12/22 05/12/24 Unknown History fluticasone propionate 50 1 spray intranasal BID 12/12/22 05/12/24 Unknown History mcg/actuation nasal spray,suspension ropinirole 1 mg tablet 1 mg PO HS 12/12/22 05/12/24 Unknown History Allergies Allergy/AdvReac Type Severity Reaction Status Date / Time codeine AdvReac Mild Nausea Verified 12/22/24 10:55 [facility] Past Medical History Medical History B12 deficiency B12 deficiency Chronic anticoagulation Chronic kidney disease, stage 3 Chronic obstructive pulmonary disease Gout Heart failure Echocardiogram in March 2022 showed mildly reduced LV systolic function with an EF of 50% and abnormal diastolic function. Hypertension Kidney stones Obstructive sleep apnea On APAP. Osteoporosis Type 2 diabetes mellitus Urinary frequency Urinary incontinence Surgical History Surgical History History of appendectomy History of hysterectomy History of mitral valve replacement with mechanical valve (04/2006) [facility] [place] valve. History of permanent cardiac pacemaker placement Family History Family History Mother Family history of coronary artery disease Social History Social History Social History: Surrogate medical decision maker: Deneen Winn or Corinne Hensley, daughters. Code status: Full code. Smoking packs per day: 3 Smoking cigarettes per day: 60.0 Years smoked: 18 Smoking pack-years: 54.00 Smoking status: Former smoker Tobacco type: cigarettes Second hand tobacco smoke exposure: No Alcohol intake: never Substance use: never Lack of Transportation: No Lack of Food: Never True Current Housing: I Have Housing Concerned About Future Housing: No Difficulty Paying Gas/Electric Bills: No Difficulty Paying for Meds: No Currently Unemployed: No Education: Associate Degree Difficulty w/ Childcare or Family Care: No Additional living arrangements comments: Assisted living at [facility]. Spiritual care concerns: No Course Vital Signs Vital signs: Vital Signs Temperature 36.3 C L 12/22/24 10:34 Pulse Rate 80 12/22/24 10:34 Respiratory Rate 22 H 12/22/24 10:34 Blood Pressure 144/65 H 12/22/24 10:34 Pulse Oximetry 96 12/22/24 10:34 Oxygen Delivery Room Air 12/22/24 10:34 Temperature 36.3 C L 12/22/24 18:12 Pulse Rate 66 12/22/24 18:12 Respiratory Rate 20 12/22/24 18:12 Blood Pressure 137/78 12/22/24 18:12 Pulse Oximetry 96 12/22/24 18:12 Oxygen Delivery Room Air 12/22/24 10:59 MDM - Fall MDM Narrative Medical decision making narrative: Patient is an 79-year-old female who presents to the ER with complaints of weakness. She reports she fell 9 days ago, fell backwards, hit her head and went to the ER in [place]. Patient reports she was admitted to the hospital and was discharged 7 days later, 2 days ago. She reports she is on blood thinners. Patient reports she has felt weak for the past 2 days. She reports the nursing facility was concerned she had norovirus so she has been on ?isolation. Patient reports a history of diarrhea and vomiting over past 2 days. She denies recent fevers, abdominal pain, back pain, or chest pain. Patient endorses a history of diabetes, high blood pressure, constipation, and congestive heart failure. Labs Ordered: CBC, CMP, coags, proBNP, troponin, urinalysis, influenza/COVID/RSV swab Imaging Ordered: Chest x-ray Medications Ordered: 1 L normal saline IV bolus, DuoNeb Results: Patient's chest x-ray indicates tatus post median sternotomy for CABG. There is prosthetic heart valve. Stable position to pacemaker leads. Cardiomegaly with interstitial edema. No significant effusion or pneumothorax. Allthough some of patient's CBC results were abnormal, they were similar to previous CBC results. Patient's coags indicated a PT of 42.1 and APTT 44.9, but patient is on warfarin. Her CMP indicated a sodium of 146, BUN of 58, creatinine of 1.62, estimated GFR 30, glucose 179, which indicates patient is dehydrated. Patient's proBNP was 4590, which is consistent with previous proBNP results (she had no lower extremity edema upon time of examination). Diagnosis: Influenza A Risks: CURB-65 CURB-65 Score for Pneumonia Severity from [email or web address] on 12/22/2024 All calculations should be rechecked by clinician prior to use RESULT SUMMARY: 2 points Moderate risk group: 6.8% 30-day mortality. Consider inpatient treatment or outpatient with close followup. INPUTS: Confusion ?> 0 = No BUN >19 mg/dL (>7 mmol/L urea) ?> 1 = Yes Respiratory Rate >=0 ?> 0 = No Systolic BP <90 mmHg or Diastolic BP <=0 mmHg ?> 0 = No Age >=5 ?> 1 = Yes Patient Education/Shared MDM: 1645-Patient tolerating ambulation with assistance around ER. She is also able to keep fluids down without vomiting during p.o. challenge. 1700-Results of tests shared with patient. Patient's CURB-65 score indicates she may benefit from inpatient treatment versus outpatient treatment with close follow-up. Upon discussion between healthcare provider and patient, it was decided patient would prefer to recover from influenza A outside of the hospital. Extensive education was given to patient regarding when she should return to the ER. Although patient does not have pneumonia on her chest x-ray, she will be placed on 2 oral antibiotics at time of discharge because of her coarse lung sounds and history of COPD. Patient reports she is able to follow-up with her primary care provider in the next 2-3 days. It was advised that patient have a low threshold for returning to the ER. Patient will be discharged home on to Doxycycline, Augmentin, Medrol Dose John and Zofran. She was given strict education regarding the importance of remaining hydrated after discharge. Patient verbalizes understanding and is in agreement plan. Vital signs stable upon time of discharge. All questions answered. Differential Diagnosis Differential diagnosis: Likely concussion without loss of consciousness and other (Influenza, COVID, RSV, norovirus, dehydration, urinary tract infection) Lab Data Attestation: I reviewed the patient's lab results. 12/22/24 10:55 12/22/24 10:55 Labs: Lab Results 12/22/24 12/22/24 12/22/24 Range/Units 10:55 11:27 11:35 WBC 8.3 (4.5-10.0) K/mm3 RBC 3.22 L (4.2-5.4) M/mm3 Hgb 10.2 L D (12.0-15.0) g/dL Hct 32.6 L (37.0-47.0) % MCV 101.2 H (80-100) fl MCH 31.7 (26-34) pg MCHC 31.3 L (32-36) g/dl RDW 16.0 H (11.5-14.5) % Plt Count 145 L (150-375) k/mm3 MPV 9.4 (7.4-10.4) fl Immature Gran % (Auto) 0.8 H (0-0.5) % Neut % (Auto) 88.0 H (45.5-73.1) % Lymph % (Auto) 3.5 L (18.3-44.2) % [place] % (Auto) 7.6 (2.6-8.5) % Eos % (Auto) 0.0 (0-4.4) % Baso % (Auto) 0.1 L (0.2-1.2) % Lymph # (Auto) 0.29 L (0.9-3.2) K/mm3 [place] # (Auto) 0.6 (0.1-0.6) K/mm3 Eos # (Auto) 0.0 (0-0.3) K/mm3 Baso # (Auto) 0.0 (0.0-0.1) K/mm3 Abs Immat Gran (auto) 0.07 H (0.00-0.031) K/mm3 Absolute Neuts (auto) 7.3 H (1.3-6.7) K/mm3 Absolute Nucleated RBC 0.000 (0.0-0.012) K/mm3 Nucleated RBC % 0.0 (0.0-0.2) % Platelet Estimate Decreased (Adequate) Anisocytosis 1+ Macrocytosis 1+ (NORMAL) Ovalocytes 1+ Dariela Cells 1+ Schistocytes None seen PT 42.1 H (11.1-14.7) Seconds INR 4.3 APTT 44.9 H (22.3-36.8) Seconds Sodium 146 H (137-145) mmol/L Potassium 4.1 (3.4-5.0) mmol/L Chloride 106 (98-107) mmol/L Carbon Dioxide 30 (22-30) mmol/L Anion Gap 10 (4-12) mmol/L BUN 58 H D (7-17) mg/dL Creatinine 1.62 H (0.7-1.0) mg/dL Estim Creat Clear Calc 27 ml/min Estimated GFR 30 L (59 - ) Glucose 179 H (65-110) mg/dL Calcium 9.4 (8.4-10.2) mg/dL Magnesium 2.2 (1.6-2.3) mg/dL Total Bilirubin 1.3 (0.2-1.3) mg/dL AST 30 (14-36) U/L ALT 19 (6-35) U/L Alkaline Phosphatase 97 (38-126) U/L Troponin I 0.034 (0.000-0.034) ng/mL NT-Pro-B Natriuret Pep 4590 H (19.9-100) pg/mL Total Protein 7.0 (6.3-8.2) g/dL Albumin 3.5 (3.5-5.1) g/dL Urine Color Yellow (Yellow) Urine Appearance Clear (Clear) Urine pH 5.0 (5.0-9.0) Ur Specific [place] 1.018 (1.001-1.035) Urine Protein 3+ H (Negative) mg/dL Urine Glucose (UA) Negative (Negative) mg/dL Urine Ketones Negative (Negative) mg/dL Ur Blood (Man) Negative (Negative) Urine Nitrate Negative (Negative) Urine Bilirubin Negative (Negative) Urine Urobilinogen 1.0 (<2.0) mg/dL Add Ur Microanalysis Reviewed Leukocyte Esterase Rfl Negative (Negative) PRESTON/UL Urine RBC 0-2 (0-2) /hpf Urine WBC 0-5 (0-3) /hpf Ur Squamous Epith Cells None seen (Few) /hpf Urine Bacteria None seen /hpf Urine Casts 6-10 Influenza A (RT-PCR) Positive A (Negative) Influenza B (RT-PCR) Negative (Negative) RSV (RT-PCR) Negative (Negative) SARS-CoV-2 RNA (RT-PCR) Negative (Negative) Imaging Data Attestation: I personally reviewed and interpreted this imaging study as follows: Radiologist's impression: Impressions Chest X-Ray 12/22/24 12:25 Impression: 1: Cardiomegaly with mild interstitial edema. Discharge Plan Discharge Clinical Impression: Upper respiratory infection, Influenza A, Chronic obstructive pulmonary disease, Dehydration Patient Disposition: [facility] Condition: Stable Instructions: Antibiotic Form, Dehydration (ED), Influenza (ED) Additional Instructions: As discussed, please return to the ER with any worsening symptoms. It is very important that you follow-up with your primary care provider in the next 2-3 days. Take all medications as prescribed. Patient Language: Korean Prescriptions: New amoxicillin-pot clavulanate 875-125 mg tablet 1 tablet PO Q12H Qty: 20 0RF doxycycline monohydrate 100 mg tablet 100 mg PO BID Qty: 14 0RF methylprednisolone [Medrol (John)] 4 mg tablets,dose pack See Rx Instructions .ROUTE .COMPLEX Qty: 21 0RF Rx Instructions: for 6 days ondansetron 4 mg tablet,disintegrating 4 mg PO Q6H PRN (Reason: nausea and vomiting) Qty: 10 0RF No Action carvedilol [Coreg] 25 mg Tablet 3.125 mg PO BID atorvastatin [Lipitor] 10 mg Tablet 10 mg PO HS alendronate [Fosamax] 70 mg Tablet 70 mg PO WEEKLY Rx Instructions: Saturdays Ozempic 1 mg/dose (2 mg/1.5 mL) Pen Injector 1 mg SUBCUT WEEKLY Rx Instructions: on Sundays Breztri Aerosphere 160-9-4.8 mcg/actuation Hfa Aerosol Inhaler 2 inh INHALATION BID warfarin [Jantoven] 2 mg tablet 3 mg PO HS escitalopram oxalate 10 mg Tablet 10 mg PO DAILY Qty: 30 0RF ropinirole 1 mg tablet 1 mg PO HS donepezil 5 mg tablet 5 mg PO HS fluticasone propionate 50 mcg/actuation spray,suspension 1 spray INTRANASAL BID Farxiga 10 mg tablet 10 mg PO DAILY azelastine 137 mcg (0.1 %) aerosol,spray 2 spray INTRANASAL BID ketotifen fumarate 0.025 % (0.035 %) Drops 1 drp EACH EYE BID Qty: 30 0RF sennosides-docusate sodium [Senokot-S] 8.6-50 mg Tablet 1 tab PO BID Qty: 30 0RF spironolactone 25 mg Tablet 25 mg PO QAM Qty: 30 0RF famotidine 20 mg Tablet 20 mg PO DAILY Qty: 30 0RF mupirocin 2 % Ointment 1 applic topical TID Qty: 15 0RF furosemide 20 mg Tablet 20 mg PO DAILY Qty: 30 0RF losartan 100 mg Tablet 100 mg PO DAILY Qty: 30 0RF polyethylene glycol 3350 [Miralax] 17 gram Powder In Packet 17 g PO BID PRN (Reason: Constipation) Qty: 30 0RF nystatin 100,000 unit/gram Powder 1 applic topical Q12HR Qty: 1 0RF Follow-up/Referrals: UNKNOWN,DOCTOR [Primary Care Provider] - Stand Alone Forms: Half-Way Discharge Time of Disposition: 17:25
[2024-12-22 11:22] LABS: Alanine Aminotransferase 19 U/L (6-35); Albumin Level 3.5 g/dL (3.5-5.1); Alkaline Phosphatase 97 U/L (38-126); Anion Gap 10 mmol/L (4-12); Aspartate Amino Transferase 30 U/L (14-36); Bilirubin,Total 1.3 mg/dL (0.2-1.3); Blood Urea Nitrogen 58 mg/dL (7-17); Calcium 9.4 mg/dL (8.4-10.2); Carbon Dioxide 30 mmol/L (22-30); Chloride 106 mmol/L (98-107); Estimated CRCL calculation 27 ml/min; Estimated Glomerular Filt Rate 30; Glucose 179 mg/dL (65-110); Potassium 4.1 mmol/L (3.4-5.0); Sodium 146 mmol/L (137-145)
[2024-12-22 11:28] LABS: Basophils Percent Auto 0.1 % (0.2-1.2); Hematocrit 32.6 % (37.0-47.0); Hemoglobin 10.2 g/dL (12.0-15.0); Immature Granulocyte Absolute 0.07 K/mm3 (0.00-0.031); Immature Granulocyte Percent A 0.8 % (0-0.5); Lymphocytes Absolute Auto 0.29 K/mm3 (0.9-3.2); Lymphocytes Percent Auto 3.5 % (18.3-44.2); Mean Corpuscular HGB Conc 31.3 g/dl (32-36); Mean Corpuscular Hemoglobin 31.7 pg (26-34); Mean Corpuscular Volume 101.2 fl (80-100); Mean Platelet Volume 9.4 fl (7.4-10.4); Monocytes Absolute Auto 0.6 K/mm3 (0.1-0.6); Monocytes Percent Auto 7.6 % (2.6-8.5); Neutrophils Absolute Auto 7.3 K/mm3 (1.3-6.7); Platelet Count Result 145 k/mm3 (150-375); Red Blood Count 3.22 M/mm3 (4.2-5.4); White Blood Count 8.3 K/mm3 (4.5-10.0)
[2024-12-22] MEDS: IPRATROPIUM 0.5 MG/ALBUTEROL SULFATE 2.5 MG AMPUL.NEB 3 ML INHALATION ×3 (11:31→12:06)
--- OUTSIDE RECORDS SUMMARY | 2024-12-22 11:43 | XMS_ITS | Clinical Summary ---
Author Organization [facility] Address [address] [place] [address] Care Team Providers Care Court Transcriber Name Role Phone No, Physician Primary Care Provider [phone] Allergies Active Allergy Reactions Criticality Noted Date Comments Codeine Nausea only,Vomiting,Other (See comments),Stomach upset,Nausea & Vomiting Low 04/06/2009 nausea Reaction: Nausea, ??Vomiting, ??, Reaction: Abdominal Cramping, ??Nausea, ?? Medications budesonide-glycop yr-formoterol (Breztri Aerosphere) 160-9-4.8 mcg/actuation HFA aerosol inhaler Inhale 2 puffs 2 (two) times a day 01/03/20 21 Active donepeziL (ARICEPT) 5 mg tabletIndications :Memory difficulties TAKE ONE TABLET BY MOUTH DAILY AT BEDTIME 30 tablet 05/24/20 22 Active escitalopram (LEXAPRO) 10 mg tablet TAKE ONE TABLET BY MOUTH DAILY 30 tablet 05/24/20 22 Active blood-glucose meter kitIndications:Ty pe 2 diabetes mellitus with diabetic nephropathy, with long-term current use of insulin ([facility]) Use to test three times a day 1 kit 06/07/20 22 Active blood glucose diagnostic (glucose blood) stripIndications: Type 2 diabetes mellitus with diabetic nephropathy, with long-term current use of insulin ([facility]) Check blood sugar three ttimes a day or as directed 300 each 3 06/07/20 22 Active lancets miscIndications:T ype 2 diabetes mellitus with diabetic nephropathy, with long-term current use of insulin ([facility]) Use to test 3 times per day 300 each 3 06/07/20 22 Active polyethylene glycol (MIRALAX) 17 gram packetIndications :constipation Take 1 packet (17 g total) by mouth 2 (two) times a day as needed for constipation 60 packet 1 07/09/20 22 Active Additional Information Patient not taking.Reported on 05/26/2024 Farxiga 10 mg tabletIndications :Heart Failure Take 1 tablet (10 mg total) by mouth daily 07/12/20 22 Active miconazole 2 % powder Apply topically 2 (two) times a day Under right breast 70 g 01/17/20 23 Active albuterol HFA (PROVENTIL HFA,VENTOLIN HFA,PROAIR HFA) 90 mcg/actuation inhalerIndication s:Chronic Obstructive Pulmonary Disease Inhale 2 puffs every 4 (four) hours as needed for wheezing or shortness of breath 1 each 01/17/20 23 Active azelastine (ASTELIN) 137 mcg (0.1 %) nasal spray Administer 2 sprays into each nostril 2 (two) times a day Use in each nostril as directed Active fluticasone propionate (FLONASE) 50 mcg/actuation nasal spray Administer 1 spray into each nostril 2 (two) times a day Active nystatin powder Apply 1 application topically 2 (two) times a day Active mupirocin (BACTROBAN) 2 % ointment Apply 1 application topically 3 (three) times a day Active ipratropium-albut Livia (DUO-NEB) 0.5-2.5 mg/3 mL nebulizer solutionIndicatio ns:Chronic Obstructive Pulmonary Disease with Bronchospasms Take 3 mL by nebulization every 6 (six) hours as needed for wheezing or shortness of breath Active semaglutide (Ozempic) 1 mg/dose (4 mg/3 mL) pen injector injectionIndicati ons:Type 2 diabetes mellitus with diabetic nephropathy, with long-term current use of insulin ([facility]) Inject 1 mg under the skin once a week 9 mL 3 04/05/20 23 Active triamcinolone (KENALOG) 0.1 % cream triamcinolone acetonide 0.1 % topical cream Active pen needle, diabetic, safety (Novofine Autocover) 30 gauge x 1/3 needle Active Unistik 3 Comfort Device kit 06/25/20 23 Active atorvastatin (LIPITOR) 10 mg tablet TAKE ONE TABLET BY MOUTH DAILY 30 tablet 11 11/12/20 23 Active acetaminophen (TYLENOL) 500 mg tablet Take 1 tablet (500 mg total) by mouth every 6 (six) hours as needed for pain Active ketotifen (ZADITOR) 0.025 % ophthalmic solution Active carvediloL (COREG) 3.125 mg tablet TAKE ONE TABLET BY MOUTH 2 TIMES A DAY WITH FOOD 60 tablet 4 12/18/19 24 Active guaiFENesin (ROBITUSSIN) syrup 100 mg/5 mL Take 20 mL (400 mg total) by mouth 4 (four) times a day as needed for cough or congestion 04/10/20 24 Active lidocaine (ASPERCREME) 4 % adhesive patch,medicatedIn dications:injury of meniscus of knee joint Place 1 patch on the skin daily 04/10/20 24 Active benzonatate (TESSALON) 100 mg capsuleIndication s:Cough Take 1 capsule (100 mg total) by mouth 3 (three) times a day as needed for cough Active furosemide (LASIX) 40 mg tablet Take 1 tablet (40 mg total) by mouth daily 05/23/20 24 Active senna-docusate (PERICOLACE) 8.6-50 mg Senna Plus 8.6 mg-50 mg tablet Active spironolactone (ALDACTONE) 25 mg tablet Take 1 tablet (25 mg total) by mouth daily 05/23/20 24 Active sacubitriL-valsar buenrostro (ENTRESTO) 24-26 mg tabletIndications :chronic heart failure Take 1 tablet by mouth Active warfarin (COUMADIN) 3 mg tablet Take 1 tablet (3 mg total) by mouth 2 (two) times a week Take 1 tablet (3mg) Sunday and . 8 tablet 1 05/29/20 24 Active warfarin (COUMADIN) 4 mg tablet Take 1 tablet (4 mg total) by mouth 5 (five) times a week Take 1 tablet (4mg) Sunday, Sunday, Sunday, SundaySunday. 20 tablet 1 05/27/20 24 Active Active Problems Problem Noted Date Diagnosed Date Severe tricuspid regurgitation 04/10/2024 Assessment & Plan (04/10/2024 9:40 AM CDT): Concern that falls is due to TR. Follow up Cardiology as outpatient. Closed fracture of right ankle with routine heal ing 04/04/2024 Assessment & Plan (04/08/2024 3:24 PM CDT): Patient reports pain in right ankle. XR shows subacute to chronic fracture. Ortho consulted, CAM boot ordered. - Wear boot at all times, WBAT - Wean off boot in 1-2 weeks - Supportive care, PT recommended for SNF Generalized weakness 04/01/2024 Assessment & Plan (04/10/2024 9:33 AM CDT): Patient presents with generalized weakness, falls, and dizziness, possibly due to polypharmacy or volume depletion. Also severe TR could play a role. Recent initiation of gabapentin, and oxybutynin. - Orthostatic assessment negative - Continue low-dose Coreg, discontinue other antihypertensives - Hold gabapentin and oxybutynin - Cardiac assessment with TTE to rule out MV pathology - Recommendation for PT/OT in SNF placement EDDIE (acute kidney injury) 04/01/2024 Assessment & Plan (04/10/2024 9:18 AM CDT): SCr 2.30 on admission, prior b/l 1.3-1.5 in 2022. Possible pre-renal cause or progression of CKD. EDDIE seems stable after IVF. On discharge Cr was 1.69 - Hold lasix, aldactone and Entresto - Avoid nephrotoxins Hypercalcemia 04/01/2024 Assessment & Plan (04/10/2024 9:35 AM CDT): Ca 10.8 on admission. S/p 500cc IVF in ED. AkpP normal. TSH normal. PTH 77 and VitD 93. Possible cause is bone turnover due to fracture and dehydration. On discharge Ca is 10. - Increase PO intake Supratherapeutic INR 04/01/2024 Assessment & Plan (04/09/2024 5:12 PM CDT): Resolved after holding warfarin. INR 7.81 on admission. No evidence of bleeding. - See MVR for more information Hyperlipidemia, unspecified 04/01/2024 Assessment & Plan (04/10/2024 9:35 AM CDT): - home atorvastatin Platelets decreased 03/14/2024 Recurrent major depression in full remission At risk for falls 03/21/2023 Osteoarthritis of multiple joints 03/05/2023 Shortness of breath 01/16/2023 Acute bronchitis due to human metapneumovirus Assessment & Plan (01/17/2023 4:04 PM RUG LAYER): -chest x-ray was reviewed, seems to be clear -respiratory auscultation with significant coarse breath sounds bilaterally, also has end expiratory wheezing, improving. -CT chest without contrast with multifocal GG nodules w/ tree in bud opacities likely infectious vs inflammatory, atypical/viral pneumonia iso metapneumovirus. -droplet isolation for metapneumovirus -p.r.n. Antitussives along with scheduled Tessalon Perles for symptom relief -inhaler therapy for shortness of breath p.r.n. Fungal infection of skin 01/15/2023 Assessment & Plan (01/15/2023 1:29 PM RUG LAYER): -noted under the right breast -ordered topical miconazole Altered bowel function 12/19/2022 Allergic conjunctivitis 08/26/2022 Hemorrhoids 08/26/2022 Depression, major, recurrent 05/25/2022 Assessment & Plan (01/15/2023 1:30 PM RUG LAYER): -resumed Lexapro Assessment & Plan (05/25/2022 5:06 AM CDT): - Endorses good mood - Continue home Lexapro 10mg daily Chronic heart failure with p reserved ejection fraction (CMS/HCC) 04/19/2022 Assessment & Plan (04/10/2024 9:31 AM CDT): Hx mid range EF 45% in 2019. Last TTE 05/2022 with EF 54%, indeterminate diastolic dysfunction. No evidence of volume overload on exam. TTE 04/09 showed normal LV and RV size and systolic function and indeterminate diastolic function. - continue home coreg 3.125 BID - hold home lasix, spironolactone and entresto because EDDIE Mild cognitive impairment 04/17/2022 Assessment & Plan (01/15/2023 1:29 PM RUG LAYER): -resumed donepezil Assessment & Plan (05/25/2022 5:05 AM CDT): - Continue home Donepezil 5mg qhs Assessment & Plan (05/03/2022 5:17 AM CDT): New Order aricept COVID-19 07/02/2021 Mixed diabetic hyperlipidemi a associated with type 2 diabetes mellitus 04/26/2021 Assessment & Plan (12/21/2021 5:34 AM RUG LAYER): Stable Cont lipitor Goal: TC<200, LDL<100, TG<150 Pulmonary hypertension 04/26/2021 Assessment & Plan (04/10/2024 9:37 AM CDT): Pulmonary hypertension with PASP 62 mmHg. Possible cause is due to TR. She is dry, lasix was hold. Chronic anticoagulation 04/26/2021 Nonrheumatic tricuspid valve regurgitation 04/26 Osteoporosis 11/13/2019 Assessment & Plan (01/15/2023 1:29 PM RUG LAYER): -reports that she has not been taking Fosamax anymore, outpatient follow-up for surveillance DEXA scan Assessment & Plan (07/13/2020 3:41 PM CDT): Start fosamax Type 2 diabetes mellitus with diabetic nephropat hy 11/13/2019 Assessment & Plan (04/05/2024 4:15 PM CDT): Last A1c 6.4% 02/2024. Home regimen: farxiga and ozempic. insulin sensitive SSI. Continue to monitor with POCT and adjust as needed. Assessment & Plan (01/15/2023 1:28 PM RUG LAYER): -ordered hemoglobin A1c, hold Farxiga and semaglutide in the hospital -we will manage with long-acting, pre meal and sliding scale insulin in the hospital -continue to monitor blood sugars, goal inpatient blood sugar is 140-180 Assessment & Plan (05/03/2022 5:16 AM CDT): Chronic Cont glucophage, basaglar, jardiance, ozempic Goal: Hgba1c<6.5 Assessment & Plan (12/21/2021 5:40 AM RUG LAYER): Chronic Cont glucophage, basaglar, jardiance, ozempic Goal: Hgba1c<6.5 Assessment & Plan (02/22/2021 2:56 PM CDT): Stable Cont metformin COPD exacerbation 10/18/2019 Assessment & Plan (01/17/2023 4:08 PM RUG LAYER): -with severe exacerbation -likely from viral infection -diffuse wheezing noted bilaterally on arrival, improving. -started on steroids, inhaler therapy, s/p scheduled DuoNebs. Transition to PO steroid taper Assessment & Plan (10/18/2019 12:03 PM RUG LAYER): Give germán and wes here in clinic Order CXR Order etienne casey pack Chronic kidney disease (CKD), stage III (moderat e) 11/08/2015 Overview (05/06/2019): Overview: Based on GFR's Assessment & Plan (01/15/2023 1:30 PM RUG LAYER): -renal function is at baseline, avoid nephrotoxic agents, monitor urine output Atrial fibrillation ([facility]) 04/11/2014 Overview (03/01/2017): ATRIAL FIBRILLATION Assessment & Plan (04/10/2024 9:24 AM CDT): Patient with PPM and history of MV stenosis post MVR on warfarin therapy. TTE showed severe TR, pulmonary hypertension with PASP 62 mmHg and pacer wire in RA/RV. Compared with TTE from 05/30/22 the and TR have progressed. Possible of TR is due to pacing lines. Discuss with daughter/patient, recommend fu with Cardiology as outpatient - Maintain home Coreg - Warfarin Assessment & Plan (01/17/2023 4:06 PM RUG LAYER): -resumed Coreg and Coumadin. Patient is status post pacemaker insertion. INR 3.3 01/14. - INR supratherapeutic at 8.4 > 7.8. Verified with facility that they can draw INR 01/18 and 01/22. Dr. Phipps (patient concrete float maker) monitors outpatient for adjustment. Assessment & Plan (05/25/2022 4:55 AM CDT): - S/p mechanical mitral valve - Pacemaker (Medtronic Adapta) placed on 10/25/2015. Permanent afib 100% V paced. 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 - INR goal 2.5-3.[address] 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 -BP has been in the 140s with coreg alone. Monitor blood pressure and creatinine, could consider resuming if blood pressure elevated and creatinine improves/ stabilizes. Assessment & Plan (01/16/2023 11:14 AM RUG LAYER): -resumed Coreg and losartan. Patient persistent hypertensive. Increased losartan to 100 mg daily. HR borderline so did not want to increase coreg. Assessment & Plan (02/22/2021 2:51 PM CDT): Stable Cont cozaar, coreg Assessment & Plan (07/13/2020 3:40 PM CDT): Stable Cont coreg, cozaar Assessment & Plan (02/14/2020 12:36 AM CDT): Stable Cont coreg, cozaar Assessment & Plan (06/11/2019 11:33 AM CDT): Stable Cont cozaar, coreg Sick sinus syndrome (CMS/HCC) 04/10/2011 Overview (03/08/2018): Description: Sick Sinus Syndrome Pacemaker 02/09/2011 Overview (05/05/2021): Medtronic Adapta Single Pacemaker. Dx; SSS, Afib. DOI-10/25/2015-elsewhere. [facility] remote monitoring. S/P mitral valve replacement 04/06/2009 Overview (05/06/2019): Overview: St. Loc's valve. Dr. De La Rosa office follows tj. He is her concrete float maker. On warfarin. 11/05/2014 Assessment & Plan (04/10/2024 9:39 AM CDT): Patient underwent mechanical mitral valve replacement with fluctuating INR levels.Today INR was 2.87 - Discontinue Lovenox bridge 04/09 - Adjust warfarin dosage to maintain target INR 2.5-3.5. On discharge INR was 3.27. Decrease warfarin to 2 mg daily. Recommend to repeat INR on Sunday. - TTE- St Loc's MVR with physioloic function Assessment & Plan (01/17/2023 4:09 PM RUG LAYER): - goal INR of 2.5-3.5, on Coumadin - INR supratherapeutic at 8.4 > 7.8. Verified with facility that they can draw INR 01/18 and 01/22. Dr. Phipps (patient concrete float maker) monitors outpatient for adjustment. - Holding coumadin, resume per outpatient cardiology and INR Resolved Problems Problem Noted Date Diagnosed Date Resolved Date Acute on chronic congestive heart failure, unspecified heart failure type 01/30/2023 Shortness of breath 01/14/2023 01/15/20 23 Supratherapeutic INR 12/03/2022 023 Supratherapeutic internation al normalized ratio (INR) 12/02/2022 01/15/2023 Elevated INR 07/09/2022 07/09/2022 Moderate malnutrition 07/06/20222022 Abdominal pain 07/05/2022 01/15/2023 Acute kidney injury 05/25/2022 01/15/20 Assessment & Plan (05/25/2022 4:51 AM CDT): - Cr 2.15 from bl 1, likely pre-renal 2/2 hemorrhagic shock - CTM for improvement s/p tx of shock, as above Hematoma of rectus sheath 05/24/2022 Assessment & Plan (05/25/2022 4:50 AM CDT): - Now s/p embolization by IR, patient HDS - Given 2 units PRBC and Kcentra and started on levo at OSH for hemorrhagic shock. Arrived hypotensive to our ED. - CT w/ contrast here with active extravastion of gastric artery -S/p 3 units of PRBC, 1 unit of FFP - Home warfarin, lovenox, aspirin held - Hgb 9.8 --> 10.8, INR 3.3 on 05/23. - Continue to monitor Hematoma of rectus sheath, initial encounter 2 01/15/2023 Pure hypercholesterolemia 05/03/2022 Assessment & Plan (05/03/2022 5:19 AM CDT): Chronic Cont lipitor Goal: TC<200, LDL<100, TG<150 H/O: CVA (cerebrovascular accident) 04/19/2022 01/15/2023 Post-COVID chronic fatigue 04/17/2022 0 01/15/2023 Alzheimer's disease, unspecified 04/17/2022 01/15/2023 Local reaction to bee sting 02/08/2022 01/15/2023 DDD (degenerative disc disease), cervical 12/12/2021 01/15/2023 Assessment & Plan (12/21/2021 5:42 AM RUG LAYER): Worsening pain Use flexeril PRN Ear discomfort, left 06/15/2021 021 Neck pain 05/04/2021 01/15/2023 Assessment & Plan (12/21/2021 5:42 AM RUG LAYER): Worsening pain Use flexeril PRN Assessment & Plan (05/11/2021 4:16 AM CDT): Worsened Order celebrex, flexeril Order xray Order PT Chronic bilateral thoracic back pain 05/04/2021 01/15/2023 Assessment & Plan (05/11/2021 4:16 AM CDT): Worsened Order celebrex, flexeril Order xray Order PT Chronic bilateral low back p ain without sciatica 05/04/2021 06/30/2021 Assessment & Plan (05/11/2021 4:16 AM CDT): Worsened Order celebrex, flexeril Order xray Order PT Swelling of right lower extremity 03/15/2021 01/15/2023 Assessment & Plan (03/15/2021 9:49 AM CDT): New Order venous doppler to r/o DVT Calf swelling 03/10/2021 06/30/2021 Assessment & Plan (03/15/2021 9:49 AM CDT): New Order venous doppler to r/o DVT Leg hematoma, right, sequela 03/10/2021 06/30/2021 Assessment & Plan (03/15/2021 9:49 AM CDT): Persistent for months Refer to general surgery Post-menopausal 02/22/2021 01/15/2023 Hypertensive heart disease w ith chronic systolic congestive heart failure ([facility]) 02/22/2021 01/15/2023 Assessment & Plan (12/21/2021 5:35 AM RUG LAYER): Stable ruslan Salinas Goal: SBP<140, DP<90 Assessment & Plan (05/11/2021 4:16 AM CDT): Stable Cont ruslan lombardi Assessment & Plan (02/22/2021 2:52 PM CDT): Stable ruslan Salinas Right leg pain 11/22/2020 06/30/2021 Assessment & Plan (12/06/2020 4:35 AM RUG LAYER): Was likely secondary to cellulitis Is better Assessment & Plan (11/30/2020 5:22 AM RUG LAYER): New Order STAT venous doppler If negative will continue abx for celluliits Cough 07/05/2020 01/15/2023 Encounter for Medicare annual wellness exam 02/14/2020 01/15/2023 Assessment & Plan (07/13/2020 3:42 PM CDT): Patient here for annual Medicare wellness visit and for review of complete medical problem list. All the elements of the plan were completed as outlined by CMS. A copy of the prevention plan was given to the patient. I reviewed Medicare Wellness Questionnaire (other physicians involved in care, depression screen, advanced directives), cognitive/memory, and functional assessment. I reviewed and updated the complete problem list, medication list, family history, and immunization records with the patient. I provided preventive counseling and early detection interventions to the patient through health maintenance update and summary of today's office visit. Assessment & Plan (02/14/2020 12:39 AM CDT): Patient here for annual Medicare wellness visit and for review of complete medical problem list. All the elements of the plan were completed as outlined by CMS. A copy of the prevention plan was given to the patient. I reviewed Medicare Wellness Questionnaire (other physicians involved in care, depression screen, advanced directives), cognitive/memory, and functional assessment. I reviewed and updated the complete problem list, medication list, family history, and immunization records with the patient. I provided preventive counseling and early detection interventions to the patient through health maintenance update and summary of today's office visit. Acute diverticulitis 02/02/2020 023 Assessment & Plan (03/06/2020 4:52 PM CDT): New Refer to GI Polyp of colon 02/02/2020 01/15/2023 Assessment & Plan (03/06/2020 4:52 PM CDT): Refer to GI Periumbilical abdominal pain 01/14/2020 01/15/2023 Assessment & Plan (02/23/2020 12:16 PM CDT): Patient sent to the ER Hematochezia 01/14/2020 06/30/2021 Assessment & Plan (02/23/2020 12:16 PM CDT): Patient sent to the ER Epistaxis 12/22/2019 06/30/2021 Abnormal computed tomography of gallbladder 11/13/2019 06/30/2021 Acute cholecystitis 11/13/2019 06/30/20 21 Cellulitis of multiple sites of head and neck 11/13/2006/30/2021 Chest pain at rest 11/13/2019 1 Clostridioides difficile diarrhea 11/13/2019 01/15/2023 Pain in right knee 11/13/2019 1 Postprocedural hematoma of abdominal wall 11/13/2019 01/15/2023 Sepsis with cutaneous manife stations ([facility]) 11/13/2019 01/15/2023 Type 2 diabetes mellitus not at goal ([facility]) 11/13/2019 01/15/2023 Assessment & Plan (02/14/2020 12:37 AM CDT): Stable Cont basaglar, ozempic Atrial fibrillation with slo w ventricular response (CMS/HCC) 11/13/2019 01/15/2023 Chronic obstructive pulmonar y disease with bronchospasm (CMS/HCC) 11/13/2019 06/30/2021 Obstructive chronic bronchit is with exacerbation (CMS/HCC) 11/13/2019 01/15/2023 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 Unable to perform her ADL's without extreme difficulty. High fall risk with weakness of the legs and abnormal gait. Would benefit from further PT/OT in SNF. Discussed home health PT/OT with patient but given her current state of weakness, she would need more care than HH would be able to provide for her. Will work on SNF waiver or getting her admitted to SNF for further strengthening and recovery. Acute pneumonia 10/29/2019 06/30/2021 Assessment & Plan (10/29/2019 1:33 PM RUG LAYER): D/w childcare worker and hospitalist and sent for direct admission to the hospital Aortic stenosis due to bicuspid aortic valve 9 01/15/2023 Cataracts, bilateral 05/06/2019 023 Overview (05/06/2019): Overview: Sees Dr. Jaydon Haile? Gastroesophageal reflux dise ase without esophagitis 05/06/2019 01/15/2023 Assessment & Plan (06/11/2019 11:34 AM CDT): Stable Cont protonix Vitamin D deficiency 10/31/2018 023 Assessment & Plan (02/22/2021 2:56 PM CDT): Stable Cont vitamin d supplement Assessment & Plan (07/13/2020 3:41 PM CDT): Stable Cont vitamin d supplement Assessment & Plan (02/14/2020 12:35 AM CDT): Stable Cont vitamin d supplement Assessment & Plan (06/11/2019 11:34 AM CDT): Stable Cont vit d supplement Chronic rhinitis 09/26/2018 01/15/2023 Restless legs syndrome 01/04/201801/15 Overview (05/06/2019): Management per patient's sleep M.D. 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 01/15/20 23 Squamous blepharitis 10/17/2017 023 Age-related osteoporosis wit hout current pathological fracture 10/03/2017 01/15/2023 Atopic dermatitis 03/09/2017 01/15/2023 CHF (congestive heart failure) ([facility]) 02/22/2017 03/21/2023 Assessment & Plan (01/17/2023 4:07 PM RUG LAYER): -echocardiogram from 05/25/2022 showed EF of 54% -currently there is no evidence of fluid overload on exam, proBNP is actually better than the previous admission -resumed Lasix and Aldactone -goal-directed medical therapy as tolerated Assessment & Plan (05/25/2022 5:01 AM CDT): - 04/10/22 2D echo at [place] - EF 50%, mild aortic stenosis, mechanical mitral valve not well seen otherwise probable normal function, moderate TR, severe pulmonary hypertension RVSP 60 mm Hg. Moderate biatrial enlargement. Has been well compensated - Hold coreg 25, lasix 20 daily, losartan 25 daily, spironolactone 12.5 mg daily ISO recent shock Pulmonary nodule, left 02/02/201701/15 Gastric ulcer 01/30/2017 01/15/2023 Overview (05/06/2019): Overview: Overview: Multiple gastric and duodenal ulcers on scope done on 01-26-2017 Overview: Multiple gastric and duodenal ulcers on scope done on 01-26-2017 Mechanical breakdown of cardiac electrode 12/26/2016 01/15/2023 Overview (02/08/2022): Overview: S/P capping the malfunctioning lead and implantation of a new Medtronic RV pacer lead using existing normally functioning PG.on 12-26-2016 Gout 11/29/2016 01/15/2023 Assessment & Plan (12/21/2021 5:41 AM RUG LAYER): Stable Cont allopurinol Assessment & Plan (02/22/2021 3:19 PM CDT): Stable Cont allopurinol Assessment & Plan (07/13/2020 3:41 PM CDT): Stable Controlled with diet Assessment & Plan (02/14/2020 12:38 AM CDT): Stable Controlled with diet Nonrheumatic aortic valve stenosis 11/29/2016 01/15/2023 Overview (05/06/2019): Overview: Overview: Moderate to severe .CAVA:1.2 cm2,mean gradient 24.7 mmHg EF 72% on echo of 01-22-2017 Overview: Based on echo in Jul 2016 Rheumatic aortic stenosis 11/29/2016 Overview (06/25/2019): Overview: Overview: Moderate to severe .CAVA:1.2 cm2,mean gradient 24.7 mmHg EF 72% on echo of 01-22-2017 Overview: Based on echo in Jul 2016 Hypersomnia with sleep apnea 09/29/2016 01/15/2023 Epiphora due to insufficient drainage 08/14/2016 01/15/2023 Rheumatic heart disease 07/26/201612/28 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 History of mitral valve repair 07/09/2016 01/15/2023 Atherosclerosis of aorta ([facility]) 07/06/2016 01/15/2023 Overview (05/06/2019): Overview: CXR 01/01/14 Benign colonic polyp 05/10/2016 023 Lenticular sclerosis 03/13/2016 023 Complete atrioventricular block ([facility]) 08/03/2015 01/15/2023 History of mitral valve repl acement with mechanical valve 03/24/2015 01/15/2023 Assessment & Plan (05/25/2022 3:35 AM CDT): - On warfarin and lovenox at home, not continued due to left inferior rectus sheath hematoma and subsequent embolization. 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 Not needing albuterol. Patient has moderate COPD. She is clinically stable. I will continue her on Symbicort 160/4.5 b.i.d., p.r.n. albuterol and Atrovent nebs, and p.r.n. albuterol. Had interlacer has also added incruse once a day which she will continue. I will order PFT Assessment & Plan (05/25/2022 3:45 AM CDT): - Not needing albuterol as outpatient per pulmonology note - Trellegy Ellipta 1 puff daily History of [place] (myocardial infarction) 04/21/2014 01/15/2023 Overview (05/06/2019): Overview: QUESTIONABLE, await records. Demand ischemia? No blockage per the patient. Pacemaker was placed for bradycardia. ??? 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 - BGL in 140s here - SSI here with insulin sensitive basal reg Assessment & Plan (07/13/2020 3:41 PM CDT): Stable Cont metformin, Basaglar, Ozempic Assessment & Plan (03/06/2020 4:54 PM CDT): Stable Cont metformin, Basaglar, Ozempic Assessment & Plan (12/10/2018 2:06 PM RUG LAYER): I called her to assess response to her new med, ozempic. Took first correct dose two days ago, did not feel great yesterday, but feels well today. Stopped januvia as directed. Will take next ozempic dose in 5 days and let us know response. Ra Jara Benign neoplasm of large intestine 04/11/2014 01/15/2023 Overview (03/02/2017): BENIGN NEOPLASM LG BOWEL Coronary arteriosclerosis in [place] artery 04/11/2014 06/30/2021 Overview (03/02/2017): CRNRY ATHRSCL NATVE VSSL Hyperlipidemia 04/11/2014 10/12/2021 Overview (03/02/2017): HYPERLIPIDEMIA NEC/NOS Assessment & Plan (05/11/2021 4:17 AM CDT): Stable Cont lipitor Assessment & Plan (02/22/2021 3:01 PM CDT): Stable Cont lipitor Assessment & Plan (07/13/2020 3:41 PM CDT): Stable Cont lipitor Assessment & Plan (02/14/2020 12:36 AM CDT): Stable Cont lipitor Assessment & Plan (06/11/2019 11:33 AM CDT): Stable Cont lipitor Herpes zoster with nervous s ystem complication 04/11/2014 01/15/2023 Overview (03/02/2017): H ZOSTER NERV SYST NEC Iron deficiency anemia 04/11/201401/15 Overview (03/03/2017): IRON DEFIC ANEMIA NOS Assessment & Plan (02/22/2021 3:01 PM CDT): Chronic stable Assessment & Plan (02/14/2020 12:38 AM CDT): Stable Controlled with diet Coronary artery disease invo lving [place] coronary artery of [place] heart without angina pectoris 05/09/2013 01/15/2023 Overview (06/25/2019): Overview: No chest discomfort History of asthma 03/31/2013 01/15/2023 Overview (02/08/2022): Mainly with viral infections. Mitral valve disease 03/19/2013 023 Cardiomyopathy 03/19/2013 01/15/2023 Chronic systolic heart failure ([facility]) 03/19/2013 01/15/2023 Mixed urge and stress incontinence 09/09/2012 01/15/2023 Dry eye syndrome 03/04/2012 01/15/2023 Overview (02/08/2022): Not bad as of 11/05/2014 not compliant with drops always. History of colonic polyps 04/04/2011 Overview (05/06/2019): Overview: Colonoscopy Removed 8 polyps, all benign. 10/23/16 tubular adenoma x 4 Complicated by GI bleed hospital stay 10/27/16 - 11/04/16, [facility] Asystole ([facility]) 02/09/2011 1 Persistent atrial fibrillation 02/09/2011 01/15/2023 Family history of allergies 01/26/2010 01/15/2023 Overview (02/08/2022): Dogs Cats, mites, ragweed. Not bad 11/05/2014 Positive ADRIANA (antinuclear antibody) 04/06/2009 01/15/2023 MAC on CPAP 04/06/2009 01/15/2023 Overview (05/06/2019): Overview: On CPAP, 19 cm water. Compliant every night. Anemia 10/11/2007 01/15/2023 Assessment & Plan (03/06/2020 4:53 PM CDT): New Recheck CBC Insomnia, unspecified 08/15/20052020 Actinic keratosis 05/16/2005 01/15/2023 Alopecia 05/16/2005 01/15/2023 Moderate persistent asthma w ith status asthmaticus 05/16/2005 01/15/2023 Encounters Date Type Department Care Team Description 12/22/2024 Telephone [facility] Pulmonology [address] [facility] [address] [place] [phone] Jake Turner MD 12/19/2024 Telephone [facility] Endocrinology Metabolism and Lipid [address] [facility] 13th [place] [address] [place] [phone] Hamida Mayorga CMA Med Management (Pts voicemail full. We do have her Ozempic 1mg 4 boxes) 12/15/2024 Anticoagulation Visit [facility] Cardiology [address] [place] [address] [place] [phone] Allie Levi RN Atrial fibrillation, unspecified type (HCC) (Primary Dx) 12/15/2024 Telephone [facility] Cardiology [address] [place] [address] [place] [phone] Romel Graves MD INR results 12/10/2024 1:30 PM RUG LAYER Office Visit [facility] Cardiology [address] [place] [address] [place] [phone] Romel Graves MD History of mitral valve replacement with mechanical valve (Primary Dx); Chronic anticoagulation; Hypertension associated with diabetes (HCC); Nonrheumatic aortic valve stenosis; Stage 3b chronic kidney disease (HCC); MAC on CPAP 12/08/2024 Anticoagulation Visit [facility] Cardiology [address] [place] [address] [place] [phone] Kristi Torres RN Atrial fibrillation, unspecified type (HCC) (Primary Dx) 12/02/2024 Anticoagulation Visit [facility] Cardiology [address] [place] [address] [address] [place] [phone] Allie Levi RN Atrial fibrillation, unspecified type (HCC) (Primary Dx) 11/27/2024 7:00 AM RUG LAYER Ancillary Procedure [facility] Cardiology [address] [facility] [address] [place] [phone] Pacemaker (Primary Dx); Atrial fibrillation, unspecified type (HCC); Sick sinus syndrome (CMS/HCC) (HCC) 11/27/2024 Orders Only [facility] Cardiology [address] [place] [address] [place] [phone] Romel Graves MD Atrial fibrillation, unspecified type (HCC) (Primary Dx); Sick sinus syndrome (CMS/HCC) (HCC); Pacemaker 11/24/2024 Anticoagulation Visit [facility] Cardiology [address] [place] [address] [place] [phone] Allie Levi RN Atrial fibrillation, unspecified type (HCC) (Primary Dx) 11/17/2024 Anticoagulation Visit [facility] Cardiology [address] [place] [address] [place] [phone] Kristi Torres RN Atrial fibrillation, unspecified type (HCC) (Primary Dx) 11/13/2024 Telephone [facility] Cardiology [address] [place] [address] [place] [phone] Romel Graves MD 11/10/2024 Anticoagulation Visit [facility] Cardiology [address] [place] [address] [place] [phone] Kristi Torres RN Atrial fibrillation, unspecified type (HCC) (Primary Dx) 11/03/2024 9:45 AM RUG LAYER Ancillary Procedure [facility] Cardiology [address] [place] [address] [place] [phone] Pacemaker [Z95.0] (Primary Dx); Atrial fibrillation, unspecified type (HCC); Sick sinus syndrome (CMS/HCC) (HCC) 11/03/2024 Anticoagulation Visit [facility] Cardiology [address] [place] [address] [place] [phone] Allie Levi RN Atrial fibrillation, unspecified type (HCC) (Primary Dx) 10/27/2024 Anticoagulation Visit [facility] Cardiology [address] [place] [address] [place] [phone] Ghassan Benavides RN Atrial fibrillation, unspecified type (HCC) (Primary Dx) 10/15/2024 Anticoagulation Visit [facility] Cardiology [address] [place] [address] [place] [phone] Kristi Torres RN Atrial fibrillation, unspecified type (HCC) (Primary Dx) 10/13/2024 Telephone [facility] Cardiology [address] [place] [address] [place] [phone] Romel Graves MD 10/10/2024 7:00 AM RUG LAYER Ancillary Procedure [facility] Cardiology [address] [place] [address] [place] [phone] Pacemaker (Primary Dx); Atrial fibrillation, unspecified type (HCC); Sick sinus syndrome (CMS/HCC) (HCC) 10/06/2024 Telephone [facility] Endocrinology Metabolism and Lipid [facility] [facility] 13th [place] [address] [place] [phone] Deven Weinberg CMA 10/03/2024 Anticoagulation Visit [facility] Cardiology [address] [place] [address] [place] [phone] Allie Levi RN Atrial fibrillation, unspecified type (HCC) (Primary Dx) 09/24/2024 10:45 AM CDT Ancillary Procedure [facility] Cardiology [address] [place] [address] [place] [phone] Pacemaker (Primary Dx); Atrial fibrillation, unspecified type (HCC); Sick sinus syndrome (CMS/HCC) (HCC) 09/24/2024 Orders Only [facility] Cardiology [address] [place] [address] [place] [phone] Romel Graves MD Atrial fibrillation, unspecified type (HCC) (Primary Dx); Sick sinus syndrome (CMS/HCC) (HCC) 09/22/2024 Anticoagulation Visit [facility] Cardiology [address] [place] [address] [place] [phone] Kristi Torres, RN Atrial fibrillation, unspecified type (HCC) (Primary Dx) from Last 3 Months Immunizations Name Administration Dates Next Due Influenza, Quad, Adjuvantate d, Intramuscular 09/14/2020 Influenza, Quadrivalent, Spl it, Intramuscular 09/02/2019 Influenza, Trivalent, High D ose, Split, Preservative Free, Intramuscular 09/18/2018,08/24/2017,08/23/2016,09/29,08/19/2014,09/22/2013 Influenza, Trivalent, IM (MDV) 2,09/04/2011,09/10/2004,08/26 Influenza, Trivalent, Preser vative Free, Intramuscular 08/26/2007 Influenza, Unspecified 10/05/2021,2017,08/24/2017,08/23,09/30/2015,08/19/2014,09/22/2013 ,09/02/2010,08/26/2009,09/17/2008 Pfizer SARS-CoV-2 Monovalent Vaccination (12+ Yrs) PURPLE 01/12/2021,12/24/2020 Pneumococcal Conjugate PCV 13 06/24/2015 Pneumococcal Polysaccharide PPV23 2017,09/04/2011,09/26/2007,10/01,11/26/1997 Td, adsorbed 03/17/2013,07/20/1999,06/26/1999 Tdap 09/04/2011 Tetanus toxoid, adsorbed 03/17/2013 Surgical History Surgery Date Site/Laterality Comments OTHER SURGICAL HISTORY 11/26/2005 - 11/25/2006 Mitral stenosis: mitral valve replacement mechanical OTHER SURGICAL HISTORY 11/26/2005 - 11/25/2006 Arrythmia: pacemaker placement dual chamber APPENDECTOMY 11/26/1983 - 11/25/1984 Appendectomy TOTAL ABDOMINAL HYSTERECTOMY W/ BILATERAL SALPINGOOPHORECTOMY 11/26/1983 - 11/25/1984 Hysterectomy, total abdominal, BSO CATARACT EXTRACTION Right BIOPSY chin CARDIAC VALVE REPLACEMENT 11/26/2005 - 11/25/2006 EMBOLIZATION VASCULAR EXTRAVASATION ARTERIAL VENOUS OR LYMPHATIC 05/24/2022 N/A Medical History Medical History Date Comments Hx Other Medical 2005 Mitral stenosis Hx Other Medical 2005 Arrythmia Hx Other Medical 2008 colitis Personal history of other di seases of the respiratory system Personal history of asthma - (Added by TW Conv) Old myocardial infarction Histor y of myocardial infarction - (Added by TW Conv) Asthma Cataract Diabetes mellitus (HCC) 2009 Heart disease 1975 Hypertension Rheumatic fever 1950 Sleep apnea 2012 Cardiac rhythm disturbance Covid-19 Covid Pacemaker COPD (chronic obstructive pu lmonary disease) ([facility]) CHF (congestive heart failur e) (CMS/HCC) ([facility]) Family History Medical History Relation Name Comments Coronary artery disease Brother Diabetes Maternal Grandmother Maile Patel Diabetes type II Maternal Grandmother Maile Patel Linda betes -Type II; Coronary artery disease Mother Nakia Rachel Heart attack Mother Nakia Rachel Heart disease Mother Nakia Rachel Hyperlipidemia Mother Nakia Rachel Hypertension Mother Nakia Rachel Macular degeneration Mother Nakia Rachel Thyroid disease Mother Nakia Rachel Vision loss Mother Nakia Rachel Thyroid disease Other 1 Diabetes Other 2 Hypertension Other 3 Heart disease Other 4 Relation Name Status Comments Brother Alive Father (Age 93) Maternal Grandmother Maile Patel Mother Nakia Rachel (Age 88) Other 1 Other 2 Other 3 Other 4 Social History Tobacco Use Types Packs/Day Years Used Date Smoking Tobacco: Former Cigarettes 3 51.1 S tarted: 11/26/1973 Smokeless Tobacco: Never Tobacco Cessation:Counseling Given: Not Answered Alcohol Use Standard Drinks/Week Comments Not Currently 0 (1 standard drink = 0.6 oz pure alcohol) 1 alcoholic beverage per month! Social Connection and Isolat ion Panel [NHANES] Answer Date Recorded In a typical week, how many times do you talk on the phone with family, friends, or neighbors? More than three times a week 02/02/2023 How often do you get togethe r with friends or relatives? More than three times a week 02/02/2023 How often do you attend chur ch or holiness services? More than 4 times per year 02/02/2023 Do you belong to any clubs o r organizations such as confucianism groups, unions, fraternal or athletic groups, or school groups? No 02/02/2023 How often do you attend meet ings of the clubs or organizations you belong to? Never 02/02/2023 Are you , , di vorced, , never , or living with a partner? 02/02/2023 AUDIT-C Answer Date Recorded Q1: How often do you have a drink containing alc ohol? Never 12/02/2022 Q2: How many drinks containi ng alcohol do you have on a typical day when you are drinking? 1 or 2 12/02/2022 Q3: How often do you have six or more drinks on one occasion? Never 12/02/2022 Overall Financial Resource Strain (CARDIA) Answe r Date Recorded How hard is it for you to pa y for the very basics like food, housing, medical care, and heating? Not hard at all 02/02/2023 PHQ-2 Answer Date Recorded PHQ-2 Total Score 1 02/02/2023 Hunger Vital Sign Answer Date Recorded Within the past 12 months, y ou worried that your food would run out before you got the money to buy more. Never true 02/03/20 23 Within the past 12 months, t he food you bought just didn't last and you didn't have money to get more. Never true 02/02/2023 PRAPARE - Transportation Answer Date Re corded In the past 12 months, has l ack of transportation kept you from medical appointments or from getting medications? No 01/24 In the past 12 months, has l ack of transportation kept you from meetings, work, or from getting things needed for daily living? No 02/02/2023 Housing Stability Vital Sign Answer Willem e Recorded In the last 12 months, was t here a time when you were not able to pay the mortgage or rent on time? No 02/02/2023 In the last 12 months, how many places have you lived? 2 02/02/2023 In the last 12 months, was t here a time when you did not have a steady place to sleep or slept in a correction (including now)? No 02/02/2023 Personal Safety Answer Date Recorded Have you ever been in or are you currently in a harmful physical or emotional relationship or is someone making you feel afraid or unsafe? Denies 04/02/2024 Comments No Sex and Gender Information Value Date Recorded Sex Assigned at Not on file Legal Sex Female 9:08 AM RUG LAYER Gender Identity Female 06/25/2019 7:13 AM CDT Sexual Orientation Not on file Obstetrics History Last Filed Vital Signs Vital Sign Reading Time Taken Comments Blood Pressure 128/76 12/10/2024 1:25 PM RUG LAYER Pulse 91 12/10/2024 1:25 PM RUG LAYER Temperature 36.2 ??C (97.1 ??F) 09/12/2024 11:39 AM C DT Respiratory Rate 18 04/10/2024 8:25 AM CDT Oxygen Saturation 99% 12/10/2024 1:25 PM RUG LAYER Inhaled Oxygen Concentration - - Weight 85.7 kg (189 lb) 12/10/2024 1:25 PM RUG LAYER Height 157.5 cm (5' 2 ) 12/10/2024 1:25 PM RUG LAYER Body Mass Index 34.57 12/10/2024 1:25 PM RUG LAYER Plan of Treatment Health Maintenance Due Date Last Done Comments Osteoporosis Screening-Bone Density Scan 1943 Dilated Eye Exam 1943 Hepatitis B Screening 1961 Zoster Vaccine (1 of 2) 1993 Albumin Creatinine Ratio, Urine 02/28/2020 02/27/2019, 11/22/2018, 07/26/2017 Well Visit 65+ 07/05/2021 07/05/2020, 12/22/2019 Foot Exam 03/18/2022 03/18/2021 Depression Screening 01/30/2024 01/29/2023, 07/05/2022, 12/12/2021, Additional history exists Covid-19 Vaccine (2023-2 5 season) 2024 04/25/2022, 08/24/2021, 01/12/2021, Additional history exists Influenza Vaccine (#1) 2024 , 09/14/2020, 09/02/2019, Additional history exists Lipid Panel 08/17/2024 08/17/2023, 06/, 04/19/2022, Additional history exists Hemoglobin A1C 03/13/2025 09/12/2024, 02/24, 09/07/2023, Additional history exists eGFR 04/09/2025 04/09/2024, 03/26, 04/07/2024, Additional history exists Fall Risk Assessment 04/10/2025 04/10/2024, 12/12/2021, 07/04/2021, Additional history exists DTaP/Tdap/Td Vaccine (4 - Td or Tdap) 05/24/2032 05/24/2022, 03/17/2013, 09/04/2011, Additional history exists Pneumococcal vaccine 65+ Completed 018, 06/24/2015, 09/04/2011, Additional history exists Medical Devices Implanted Type Area Ethernet Network Architect Device Identifier Shelf Expiration Date Model / Serial / Lot [employer] Coil Embolization Tornado Microcoil [place] Od3-2mm .018 In Catheter [id number] - [id number] Implanted:Qty: 1 on 05/24/[address] [facility] [employer] 03/13/2027 [id number] / / [id number] [employer] Coil Embolization Tornado Microcoil [place] Od3-2mm .018 In Catheter [id number] - [id number] Implanted:Qty: 1 on 05/24/[address] [facility] [employer] 03/13/2027 [id number] / / [id number] [employer] Coil Embolization Tornado Microcoil [place] Od3-2mm .018 In Catheter [id number] - [id number] Implanted:Qty: 1 on 05/24/[address] [facility] [employer] 03/13/2027 [id number] / / [id number] [employer] Coil Embolization Tornado Microcoil [place] Od3-2mm .018 In Catheter [id number] - [id number] Implanted:Qty: 1 on 05/24/[address] [facility] [employer] 03/13/2027 [id number] / / [id number] [employer] Coil Embolization Tornado Microcoil [place] Od3-2mm .018 In Catheter [id number] - [id number] Implanted:Qty: 1 on 05/24/[address] [facility] [employer] 03/13/2027 [id number] / / [id number] Angio-Seal Vip 6fr Closere Device [id number] - [id number] Implanted:Qty: 1 on 05/24/[address] [facility] [employer] Heather 02/23/2023 [id number] / / [id number] Procedures Procedure Name Priority Date/Time Associated Diagnosis Comments PROTIME-INR Routine 12/15/2024 ELECTROCARDIOGRAM REPORT Routine 025 3:54 PM RUG LAYER History of mitral valve replacement with mechanical valve PROTIME-INR Routine 12/08/2024 PROTIME-INR Routine 12/01/2024 DEVICE CHECK - REMOTE Routine 11/27/2024 4:23 PM RUG LAYER Atrial fibrillation, unspecified type (HCC) Sick sinus syndrome (CMS/HCC) (HCC) PROTIME-INR Routine 11/24/2024 PROTIME-INR Routine 11/16/2024 DEVICE CHECK - REMOTE Routine 11/13/2024 12:27 PM RUG LAYER Atrial fibrillation, unspecified type (HCC) Sick sinus syndrome (CMS/HCC) (HCC) PROTIME-INR Routine 11/10/2024 PROTIME-INR Routine 11/03/2024 PROTIME-INR Routine 10/21/2024 PROTIME-INR Routine 10/15/2024 DEVICE CHECK - REMOTE Routine 10/10/2024 3:35 PM RUG LAYER Atrial fibrillation, unspecified type (HCC) Sick sinus syndrome (CMS/HCC) (HCC) PROTIME-INR Routine 10/03/2024 DEVICE CHECK - REMOTE Routine 09/24/2024 2:24 PM CDT Atrial fibrillation, unspecified type (HCC) Sick sinus syndrome (CMS/HCC) (HCC) PROTIME-INR Routine 09/22/2024 POCT HEMOGLOBIN A1C Routine 09/12/2024 1 1:49 AM CDT Type 2 diabetes mellitus with diabetic nephropathy, with long-term current use of insulin (HCC) EGFR Routine 04/09/2024 10:22 PM CDT POCT LIPID PANEL Routine 08/17/2023 3:06 PM CDT Mixed diabetic hyperlipidemia associated with type 2 diabetes mellitus (HCC) ALBUMIN CREATININE RATIO, URINE Routine 02/27/2019 7:47 AM CDT Type 2 diabetes mellitus with hyperglycemia, with long-term current use of insulin (CMS/HCC) from Last 3 Months or Most Recently Relevant to Health Maintenance Results * (ABNORMAL) Protime-INR (12/15/2024) INR 6.90(A) 0.90 - 1.10 EXTERNAL LAB Blood Result [facility] Historical Provider LAB BLOOD ORDERABLES Kami l Result EXTERNAL LAB * Electrocardiogram Report (12/10/2024 3:54 PM RUG LAYER) Result [facility] Romel Graves MD ECG ORDERABLES Final Result * (ABNORMAL) Protime-INR (12/08/2024) INR 3.80(A) 0.90 - 1.10 EXTERNAL LAB Blood Result [facility] Historical Provider LAB BLOOD ORDERABLES Kami l Result EXTERNAL LAB * (ABNORMAL) Protime-INR (12/01/2024) INR 3.30(A) 0.90 - 1.10 EXTERNAL LAB Blood Result [facility] Historical Provider MD LAB BLOOD ORDERABLES Kami l Result EXTERNAL LAB * DEVICE CHECK - REMOTE (11/27/2024 4:23 PM RUG LAYER) Anatomical Region Laterality Modality Other Narrative 12/02/2024 7:53 AM RUG LAYER Medtronic Adapta Single Pacemaker. Dx; SSS, Afib. DOI-10/25/2015-elsewhere. [employer] remote monitoring. VVIR Pacemaker Remote to assess battery status. Transmission attached. Battery status: ??2.61 V, < 1 month remaining battery life to PAUL. Stable lead impedances, pacing and sensing thresholds. Presenting rhythm: ??Vpaced. CLINICAL NURSING INSTRUCTOR-99.8 %. No Ventricular high rate episodes detected. Medications: ??Carvedilol, Warfarin, Entresto See scanned report. Office pacemaker follow up: ??Pending generator change. [facility] remote f/u 12/24/2024. Ailyn Shay RN Result [facility] Romel Graves MD CV CARDIAC SERVICES PROCEDURES F inal Result * (ABNORMAL) Protime-INR (11/24/2024) INR 4.20(A) 0.90 - 1.10 EXTERNAL LAB Blood Result [facility] Historical Provider MD LAB BLOOD ORDERABLES Kami l Result EXTERNAL LAB * (ABNORMAL) Protime-INR (11/16/2024) INR 3.70(A) 0.90 - 1.10 EXTERNAL LAB Blood Result [facility] Provider MD LAB BLOOD ORDERABLES Kami l Result EXTERNAL LAB * DEVICE CHECK - REMOTE (11/13/2024 12:27 PM RUG LAYER) Anatomical Region Laterality Modality Other Narrative 11/13/2024 12:59 PM RUG LAYER Medtronic Adapta Single Pacemaker. Dx; SSS, Afib. DOI-10/25/2015-elsewhere. [facility] remote monitoring. Routine VVIR Pacemaker Remote to assess battery status. Transmission attached. Battery status: ??2.63 V, < 1 month remaining battery life to PAUL. Stable lead impedances, pacing and sensing thresholds. Presenting rhythm: ??Vpaced. CLINICAL NURSING INSTRUCTOR-99.8 %. No AT/AF episodes noted. No Ventricular high rate episodes detected. Medications: ??Carvedilol, Warfarin, Entresto See scanned report. Office pacemaker follow up: ??Pending generator change. [facility] remote f/u 11/27/2024. Ailyn Shay, RN Result [facility] Romel Graves MD CV CARDIAC SERVICES PROCEDURES F inal Result * (ABNORMAL) Protime-INR (11/10/2024) INR 4.90(A) 0.90 - 1.10 EXTERNAL LAB Blood Result [facility] Provider MD LAB BLOOD ORDERABLES Kami l Result EXTERNAL LAB * (ABNORMAL) Protime-INR (11/03/2024) INR 3.40(A) 0.90 - 1.10 EXTERNAL LAB Blood Result [facility] Provider MD LAB BLOOD ORDERABLES Kami l Result EXTERNAL LAB * (ABNORMAL) Protime-INR (10/21/2024) INR 3.00(A) 0.90 - 1.10 EXTERNAL LAB Blood Result [facility] Provider MD LAB BLOOD ORDERABLES Kami l Result EXTERNAL LAB * (ABNORMAL) Protime-INR (10/15/2024) INR 2.20(A) 0.90 - 1.10 EXTERNAL LAB Blood Result [facility] Provider MD LAB BLOOD ORDERABLES Kami l Result Performing Organization Address City/[facility] [address]/ZIP Co de Phone Number EXTERNAL LAB * DEVICE CHECK - REMOTE (10/10/2024 3:35 PM RUG LAYER) Anatomical Region Laterality Modality Other Narrative 10/13/2024 8:21 AM RUG LAYER Medtronic Adapta Single Pacemaker. Dx; SSS, Afib. DOI-10/25/2015-elsewhere. [facility] remote monitoring. VVIR Pacemaker Remote to assess battery status. Transmission attached. Battery status: ??2.63 V, < 1 month remaining battery life to PAUL. Stable lead impedances, pacing and sensing thresholds. Presenting rhythm: ??Vpaced. CLINICAL NURSING INSTRUCTOR-99.8 %. No AT/AF episodes noted. No Ventricular high rate episodes detected. Medications: ??Carvedilol, Warfarin, Entresto See scanned report. Office pacemaker follow up: ??Pending generator change. [facility] remote f/u 10/29/2024. Ailyn Shay, CAROL ANN Romel Graves MD CV CARDIAC SERVICES PROCEDURES F inal Result * (ABNORMAL) Protime-INR (10/03/2024) INR 1.70(A) 0.90 - 1.10 EXTERNAL LAB Blood Historical Provider LAB BLOOD ORDERABLES Kami l Result EXTERNAL LAB * DEVICE CHECK - REMOTE (09/24/2024 2:24 PM CDT) Anatomical Region Laterality Modality Other Narrative 09/25/2024 1:20 PM CDT Medtronic Adapta Single Pacemaker. Dx; SSS, Afib. DOI-10/25/2015-elsewhere. [facility] remote monitoring. VVIR Pacemaker Remote to assess battery status Transmission attached. Battery status: ??2.64 V, < 1 month remaining battery life to PAUL. Stable lead impedances, pacing and sensing thresholds. Presenting rhythm: ??CLINICAL NURSING INSTRUCTOR CLINICAL NURSING INSTRUCTOR-99.8 % No AT/AF episodes noted. No Ventricular high rate episodes detected. Medications: ??Carvedilol 3.125 mg, warfarin, Entresto See scanned report. Office pacemaker follow up: ??Pending generator change [facility] remote f/u 10/08/24. Sunny Braun, CAROL ANN Romel Graves MD CV CARDIAC SERVICES PROCEDURES F inal Result * (ABNORMAL) Protime-INR (09/22/2024) INR 2.30(A) 0.90 - 1.10 EXTERNAL LAB Blood Historical Provider LAB BLOOD ORDERABLES Kami l Result EXTERNAL LAB * POCT hemoglobin A1c (09/12/2024 11:49 AM CDT) Hemoglobin A1C, POC 6.7 4.0 - 5.6 % Blood 09/12/2024 11:4 9 AM CDT Ra Jara MD POINT OF CARE TEST ORDERA BLES Final Result * (ABNORMAL) eGFR (04/09/2024 10:22 PM CDT) eGFR 30(L) >=60 mL/min/1. 73 m2 Comment: Interpretive Data Reference Interval Normal ?>/= 90 mL/min/1.73m2 Mildly decreased* ? 60 - 89 mL/min/1.73m2 Mildly to moderately decreased ?45 - 59 mL/min/1.73m2 Moderately to severely decreased ??30 - 44 mL/min/1.73m2 Severely decreased ?15 - 29 mL/min/1.73m2 Kidney Failure ?< 15 ??mL/min/1.73m2 *Relative to young adult level Estimated glomerular filtration rate is determined by the 2020 CKD-EPI equation recommended by the National Kidney Foundation (A Unifying Approach to GFR Estimation: Recommendations of the NKF-ASK Task Force on Reassessing the Inclusion of Race in Diagnosing Kidney Disease, JASN 2020). The CKD-EPI equation should not be used for patients with unstable renal function and has not been validated in children and those over 70. Current interpretive data was last reviewed 2021. Blood 04/09/2024 10:2 2 PM CDT 04/09/2024 11:04 PM CDT us Caryn GOSS LAB BLOOD ORDERABL ES Final Result [facility] Department [place] [address] * POCT lipid panel (08/17/2023 3:06 PM CDT) Cholesterol, POC 134 mg/dL Comment:Glu 154 HDL, POC 28 mg/dL Triglycerides, POC 198 mg/dL LDL Cholesterol POC 66 mg/dL Chol/HDL Ratio, POC 2.4 Non-HDL Cholesterol, POC 106 mg/dL Cholesterol Total, POC 134 mg/dL Capillary blood 08/17/2023 3 :06 PM CDT us Ulises Phipps MD POINT OF CARE TEST ORDER BRIAN Final Result * (ABNORMAL) Microalbumin / creatinine ratio, urine, random (02/27/2019 7:47 AM CDT) Creatinine, ur 100 20 - 275 mg/dL [facility] [place] Microalbumin, ur 52.9 See Note: mg/dL [facility] [place] Comment: Reference Range: Reference Range Not established Verified by repeat analysis. Microalbumin/creat ratio 529(H) <30 mcg/mg creat [facility] [place] Comment: The ADA defines abnormalities in albumin excretion as follows: Category ? Result (mcg/mg creatinine) Normal ?<30 Microalbuminuria ? 30-299 Clinical albuminuria ?? > OR = 300 The ADA recommends that at least two of three specimens collected within a 3-6 month period be abnormal before considering a patient to be within a diagnostic category. Urine 02/27/2019 7:47 AM CDT 02/27/2019 7:48 AM CDT Narrative [facility] - 02/28/2019 3:29 PM CDT FASTING:YES FASTING: YES Resulting Agency Comment Performing Organization Information: ?Site ID: [id number] ?Name: [facility] ?Address: [address] [place] [address] ?Director: Hermelindo Arce D.O., MPH Ra Jara MD LAB URINE ORDERABLES Kami l Result [facility] from Last 3 Months or Most Recently Relevant to Health Maintenance [address] [place] [address] MEDICARE [facility] MEDICARE AAR Dr [address] [place] [id number] [facility] MED[address] [place] [address] MEDICARE Advance Directives For more information, please contact: [phone] Documents on File Type Date Recorded Patient Supervisor Electrolytic Tinning Expl anation ADVANCE DIRECTIVE 02/05/2023 10:58 AM DNR ADVANCE DIRECTIVE 2022 CPR ADVANCE DIRECTIVE 05/05/2021 * Full Code (Latest Code Status on File) Date Activated Date Inactivated Comments 04/01/2024 2:29 PM 04/10/2024 6:04 PM * Full Code Date Activated Date Inactivated Comments 01/30/2023 6:03 PM 02/03/2023 12:23 AM * Full Code Date Activated Date Inactivated Comments 01/15/2023 12:38 PM 01/17/2023 9:32 PM * Full Code Date Activated Date Inactivated Comments 07/06/2022 12:50 AM 07/09/2022 7:37 PM * Full Code Date Activated Date Inactivated Comments 05/24/2022 11:11 PM 06/05/2022 8:[address] Transcriber Relationship Specialty Start Date End Date No, Physician PCP - General 09/12/24
--- OUTSIDE RECORDS SUMMARY | 2024-12-22 11:43 | XMS_ITS ---
Author Organization [facility] Address [address] [place], [place] [id number] Care Team Providers Care Cable Coverer Name Role Phone LINDA PACHECO Unavailable [phone] Stone, Crystal Unavailable Unavailable Allergies Allergen (clinical drug ingredient) Drug/Non Drug Allergy documented on EMR Reaction Allergy Type Onset Date Status codeine Codeine Unknown Drug Allergy 11/06/2012 active REASON FOR VISIT Patient presents with painful toenails of both feet. They cause pain with shoes and ambulation. Theonset was gradual. The patient has diabetes mellitus Medications Medication SIG (Take, Route, Frequency, Duration) Notes Start Date End Date Status metformin hydrochloride 1000 MG Oral Tablet ORAL metformin hydrochloride 1000 MG Oral TabletOriginal Medicationmetformin hydrochloride 1000 MG Oral Tablet *Reorder from [employer] for eRx and Interaction Alerts* 2 Active colchicine 0.6 MG Oral Tablet [Colcrys] ORAL colchicine 0.6 MG Oral Tablet [Colcrys]Original Medicationcolchicine 0.6 MG Oral Tablet [Colcrys] *Reorder from [employer] for eRx and Interaction Alerts* 4 Active digoxin 0.125 MG Oral Tablet ORAL digoxin 0.125 MG Oral TabletOriginal Medicationdigoxin 0.125 MG Oral Tablet *Reorder from [employer] for eRx and Interaction Alerts* 2 Active insulin aspart, human 100 UNT/ML Injectable Solution [NovoLog] insulin aspart, human 100 UNT/ML Injectable Solution [NovoLog]Original Medicationinsulin aspart, human 100 UNT/ML Injectable Solution [NovoLog] *Reorder from [employer] for eRx and Interaction Alerts* 2 Active isopropyl alcohol 0.7 ML/ML Medicated Pad isopropyl alcohol 0.7 ML/ML Medicated PadOriginal Medicationisopropyl alcohol 0.7 ML/ML Medicated Pad *Reorder from [facility] for eRx and Interaction Alerts* 2 05/29/20 29 Active Warfarin Sodium 10 MG Oral Tablet ORAL warfarin sodium 10 MG Oral TabletOriginal Medicationwarfarin sodium 10 MG Oral Tablet *Reorder from [facility] for eRx and Interaction Alerts* 2 Active Lisinopril 2.5 MG Oral Tablet ORAL lisinopril 2.5 MG Oral TabletOriginal Medicationlisinopril 2.5 MG Oral Tablet *Reorder from [facility] for eRx and Interaction Alerts* 2 Active Carvedilol 12.5 MG Oral Tablet ORAL carvedilol 12.5 MG Oral TabletOriginal Medicationcarvedilol 12.5 MG Oral Tablet *Reorder from [facility] for eRx and Interaction Alerts* 2 Active ciprofloxacin 500 MG Oral Tablet [Cipro] ORAL ciprofloxacin 500 MG Oral Tablet [Cipro]Original Medicationciprofloxacin 500 MG Oral Tablet [Cipro] *Reorder from [facility] for eRx and Interaction Alerts* 7 Active clobetasol propionate 0.0005 MG/MG Topical Ointment CUTANEOUS clobetasol propionate 0.0005 MG/MG Topical OintmentOriginal Medicationclobetasol propionate 0.0005 MG/MG Topical Ointment *Reorder from [facility] for eRx and Interaction Alerts* 3 Active Furosemide 40 MG Oral Tablet ORAL furosemide 40 MG Oral TabletOriginal Medicationfurosemide 40 MG Oral Tablet *Reorder from [facility] for eRx and Interaction Alerts* 2 Active Vital Signs Height 66.00 in 06/09/2024 Weight 206 lbs 06/09/2024 BMI 33.25 kg/m2 06/09/2024 Height-cm 167.64 cm 06/09/2024 Weight-kg 93.44 kg 06/09/2024 Encounters Encounter Location Date Provider Diagnosis [facility] [address] [place] [id number] 06/09/2024 LINDA PACHECO Tinea unguium B35.1 ; Pain in right toe(s) M79.674 ; Pain in left toe(s) M79.675 ; Atherosclerosis of asa'[place] arteries of extremities with intermittent claudication, bilateral legs I70.213 and Type 2 diabetes mellitus with other circulatory complications E11.59 Assessments Encounter Date Diagnosis (ICD Code) Assessment Notes Treatment Notes Treatment Clinical Notes Section Notes 06/09/2024 Tinea unguium (ICD-10 - B35.1) NAIL DEBRIDEMENT: Nails 1-5 Bilateral were debrided extensively with nail nippers and emery board, reducing length and girth to pink healthy tissue with any subungual debris and necrotic tissue removed 06/09/2024 Pain in right toe(s) (ICD-10 - M79.674) 06/09/2024 Pain in left toe(s) (ICD-10 - M79.675) 06/09/2024 Atherosclerosis of asa'carsarmiut arteries of extremities with intermittent claudication, bilateral legs (ICD-10 - I70.213) 06/09/2024 Type 2 diabetes mellitus with other circulatory complications (ICD-10 - E11.59) Diabetic Foot Care: The patient was educated on diabetes and the lower extremity. The patient was instructed to check his feet daily to report any problems or signs of infection immediately. The patient was provided written information on Diabetic Foot Care as well as the Amputation Prevention Guide. Plan Of Treatment Treatment Notes Assessment Notes Tinea unguium NAIL DEBRIDEMENT: Na ils 1-5 Bilateral were debrided extensively with nail nippers and emery board, reducing length and girth to pink healthy tissue with any subungual debris and necrotic tissue removed Type 2 diabetes mellitus wit h other circulatory complications Diabetic Foot Care: The patient was educated on diabetes and the lower extremity. The patient was instructed to check his feet daily to report any problems or signs of infection immediately. The patient was provided written information on Diabetic Foot Care as well as the Amputation Prevention Guide. Next Appt Details Follow Up: 10-12 Weeks, Reas on: At risk foot care, sooner if problems arise Provider Name:LINDA PACHECO, 02:30:00 PM, [address], [facility], [place], [place], [phone], Progress Notes * MAI MCCULLOUGH KDOB:[birth year] (79 yo F)Acc No.[id number]:06/09/2024 Patient:?MAI MCCULLOUGH Provider:?Linda Pacheco DPM :1945???Age:79 Y???Sex:Female D ate:06/09/2024 Address:[address] [place] [address] Subjective: * Chief Complaints: * ???1. Patient presents with painful toenails of both feet. They cause pain with shoes and ambulation. The onset was gradual. The patient has diabetes mellitus. * HPI: ???HPI:?General care?Patient presents to the office for diabetic foot care. Patient states that their nails are thickened, elongated and painful. Patient states that it is aggravated by shoe gear. Onset is gradual., Patient is taking prescription blood thinners., Date last seen by Dr. Prieto was April 2024., Initials .? * Medical History:? * Family History:?Father: PRN - Father: .?Mother: PRN - Mother: .?Brother: SIB - Brother: .?Sister: SIB - Sister: .? * Social History:?Migrated Social History:?Migrated Social History: Alcohol intake : , Smoking Status : Former tobacco user , History of tobacco use :. * Medications:?Taking Furosemi de 40 MG Oral Tablet ORAL , Notes to Pharmacist: furosemide 40 MG Oral TabletOriginal Medicationfurosemide 40 MG Oral Tablet *Reorder from [facility] for eRx and Interaction Alerts*, Taking Warfarin Sodium 10 MG Oral Tablet ORAL , Notes to Pharmacist: warfarin sodium 10 MG Oral TabletOriginal Medicationwarfarin sodium 10 MG Oral Tablet *[facility]*, Taking Lisinopril 2.5 MG Oral Tablet ORAL , Notes to Pharmacist: lisinopril 2.5 MG Oral TabletOriginal Medicationlisinopril 2.5 MG Oral Tablet *[facility] and Interaction [facility]*, Taking Carvedilol 12.5 MG Oral Tablet ORAL , Notes to Pharmacist: carvedilol 12.5 MG Oral TabletOriginal Medicationcarvedilol 12.5 MG Oral Tablet *Reorder from [facility] for eRx and Interaction Alerts*, Taking ciprofloxacin 500 MG Oral Tablet [Cipro] ORAL , Notes to Pharmacist: ciprofloxacin 500 MG Oral Tablet [Cipro]Original Medicationciprofloxacin 500 MG Oral Tablet [Cipro] *Reorder from [facility] for eRx and Interaction Alerts*, Taking clobetasol propionate 0.0005 MG/MG Topical Ointment CUTANEOUS , Notes to Pharmacist: clobetasol propionate 0.0005 MG/MG Topical OintmentOriginal Medicationclobetasol propionate 0.0005 MG/MG Topical Ointment *Reorder from [facility] for eRx and Interaction Alerts*, Taking colchicine 0.6 MG Oral Tablet [Colcrys] ORAL , Notes to Pharmacist: colchicine 0.6 MG Oral Tablet [Colcrys]Original Medicationcolchicine 0.6 MG Oral Tablet [Colcrys] *Reorder from [facility] for eRx and Interaction Alerts*, Taking digoxin 0.125 MG Oral Tablet ORAL , Notes to Pharmacist: digoxin 0.125 MG Oral TabletOriginal Medicationdigoxin 0.125 MG Oral Tablet *Reorder from [facility] for eRx and Interaction Alerts*, Taking insulin aspart, human 100 UNT/ML Injectable Solution [NovoLog] , Notes to Pharmacist: insulin aspart, human 100 UNT/ML Injectable Solution [NovoLog]Original Medicationinsulin aspart, human 100 UNT/ML Injectable Solution [NovoLog] *Reorder from [facility] for eRx and Interaction Alerts*, Taking isopropyl alcohol 0.7 ML/ML Medicated Pad , stop date 05/29/2029, Notes to Pharmacist: isopropyl alcohol 0.7 ML/ML Medicated PadOriginal Medicationisopropyl alcohol 0.7 ML/ML Medicated Pad *Reorder from [facility] for eRx and Interaction Alerts*, Taking metformin hydrochloride 1000 MG Oral Tablet ORAL , Notes to Pharmacist: metformin hydrochloride 1000 MG Oral TabletOriginal Medicationmetformin hydrochloride 1000 MG Oral Tablet *Reorder from [facility] for eRx and Interaction Alerts* * Allergies:?Codeine: Allergy - Onset Date 11/06/2012. Objective: * Vitals:?Wt: 206 lbs, Wt-k.44 kg, Ht: 66.00 in, Ht-cm: 167.64 cm, BMI: 33.25 Index, Body Surface Area: 2.08. * Examination: ???Constitutional: ?Constitutional?The patient is awake, alert, well developed, well groomed and well nourished.?Dermatologic: ?Skin findings:?Skin is thin, atrophic and lacking pedal hair.?Nail pathology:?Nails 1-5 bilateral are elongated, thick, discolored, and dystrophic with subungual debris. They are painful to palpation.?Vascular: ?Dorsalis pedis pulse:?0/4, bilateral.?Posterior tibial pulse:?1/4, bilaterally.?Capillary refill:?greater than 3 seconds.?Edema:?No edema, bilateral.?Neurologic: ?Gross sensation?Gross sensation is intact to light touch.?Musculoskeletal: ?Muscle Strength?Muscle strength is 5/5 in regards to dorsiflexion, plantarflexion, inversion, and eversion in bilateral lower extremities.? Assessment: * Assessment: 1.?Tinea unguium - B35.1 (Pr imary)?2.?Pain in right toe(s) - M79.674?3.?Pain in left toe(s) - M79.675?4.?Atherosclerosis of asa'[place] arteries of extremities with intermittent claudication, bilateral legs - I70.213?5.?Type 2 diabetes mellitus with other circulatory complications - E11.59? Plan: * Treatment: 2.?Type 2 diabetes mellitus with other circulatory complications? Notes: Diabetic Foot Care: The patient was educated on diabetes and the lower extremity. The patient was instructed to check his feet daily to report any problems or signs of infection immediately. The patient was provided written information on Diabetic Foot Care as well as the Amputation Prevention Guide. ?? * Procedure Codes:?85056 DEBRI DE NAIL, 6 OR MORE, Modifiers: Q8 * Follow Up:?10-12 Weeks (Reas on: At risk foot care, sooner if problems arise) * Billing Information: * Visit Code:? * Procedure Codes:? 68284 DEBRIDE NAIL, 6 OR MORE. Modifiers: Q8 * Sign off status: Completed true * Provider:Linh Pacheco DPM Date:?06/09/20 24 Generated for Mame mcmullen/Smith/Samiraitting on:?12/22/2024 11:43 AM PILOT STEAM YACHT History and Physical Notes * HPI (History of Present Illness) Category Sub-Category Detail Notes Category Not es HPI General care Patient presents to the office for diabetic foot care. Patient states that their nails are thickened, elongated and painful. Patient states that it is aggravated by shoe gear. Onset is gradual., Patient is taking prescription blood thinners., Date last seen by Dr. Prieto was April 2024., Initials JR Examination Category Sub-Category Detail Notes Category Not es Dermatologic Skin findings: Skin is thin, at rophic and lacking pedal hair Nail pathology: Nails 1-5 bilateral are elongated, thick, discolored, and dystrophic with subungual debris. They are painful to palpation Neurologic Gross sensation Gross sensation is intact to light touch Vascular Dorsalis pedis pulse: 0/4, bilateral Edema: No edema, bilateral Capillary refill: greater than 3 secon ds Posterior tibial pulse: 1/4, bilaterally Musculoskeletal Muscle Strength Muscle strength is 5/5 in regards to dorsiflexion, plantarflexion, inversion, and eversion in bilateral lower extremities Constitutional Constitutional The patient is a wake, alert, well developed, well groomed and well nourished
--- OUTSIDE RECORDS SUMMARY | 2024-12-22 11:43 | XMS_ITS | Encounter Summary ---
Author Organization [facility] Address [address] [place] [address] Care Team Providers Care Hardware Manager Name Role Phone No, Physician Primary Care Provider [phone] Encounter Details Date Type Department Care Team (Late st Contact Info) Description 12/22/[address] [facility] Pulmonology [address] [place] [address] [place] [address] [place] [address] [address] [place] [address] Social History Tobacco Use Types Packs/Day Years Used Date Smoking Tobacco: Former Cigarettes 3 51.1 S tarted: 11/26/1973 Smokeless Tobacco: Never Alcohol Use Standard Drinks/Week Comments Not Currently [...] week 02/02/2023 How often do you attend [facility] or zoroastrianism services? More than 4 times per year 02/02/2023 Do you belong to any clubs o r organizations such as sabianism groups, unions, fraternal or athletic groups, or [...] place to sleep or slept in a longterm (including now)? No 02/02/2023 Personal Safety Answer Date Recorded Have you ever been in or are you currently in a harmful physical or emotional relationship or is someone making you feel afraid or unsafe? Denies 04/02/2024 Comments No Sex and Gender Information Value Date Recorded Sex Assigned at Not on file Legal Sex Female 9:08 AM WASHER BLANKET Gender Identity Female 06/25/2019 7:13 AM CDT Sexual Orientation Not on file documented as of this encounter Miscellaneous Notes * Telephone Encounter - Paula Rivero RN - 12/22/2024 9:10 AM WASHER BLANKET Please contact pt and inform her that since she has not been seen since 01/2022, we will not be able to order anything for her. She will need to come in for an office visit or contact her pcp. Thank you. ER BLANKET * Telephone Encounter - Katerine Browning - 12/22/2024 8:17 AM CST Pt states she was in the hospital due to a fall she use a cpap machine but do to a huge hematoma onher head she has not been able to wear cpap machine she was on oxygen while in the hospital and said that worked for her would like to know if provider would order oxygen 2% pressure pt would like a cb [phone] ER BLANKET documented in this encounter Plan of Treatment Not on file documented as of this encounter Visit Diagnoses Not on filedocumented in this encounter Care Teams Hardware Manager Relationship Specialty Start Date End Date No, Physician PCP - General 09/12/24 documented as of this encounter
--- OUTSIDE RECORDS SUMMARY | 2024-12-22 11:43 | XMS_ITS | Encounter Summary ---
Author Organization [facility] Address [address] [place] [address] Care Team Providers Care Ballpoint Pens Assembler Name Role Phone Juana Mesa MD Primary Care Provider [phone] Juana Mesa MD Unavailable Juana Mesa MD Unavailable Juana Mesa MD Unavailable Juana Mesa MD Unavailable Juana Mesa MD Unavailable Juana Mesa MD Unavailable Ra Jara MD Unavailable Dada Lou MD Unavailable Unavailable Paco Holden MD Unavailable Paramjit Escobar MD Unavailable [phone] Encounter Details Date Type Department Care Team (Late st Contact Info) Description 03/24/2024 Lab Requisition [facility] - DermPath Lab [address] [facility] [place] [id number] Vashti Milan, [address] [facility] [address] [place] [address] Social History Tobacco Use Types Packs/Day Years Used Date Smoking Tobacco: Former Cigarettes 2 13 0 11/26/1961 - 11/26/1974 Smokeless Tobacco: Never Alcohol Use Standard Drinks/Week Comments Yes 0 (1 standard drink = 0.6 oz pur e alcohol) Sex and Gender Information Value Date Recorded Sex Assigned at Not on file Gender Identity Not on file Sexual Orientation Not on file documented as of this encounter Functional Status Functional Status Response Date of Assess ment Is person deaf or have serious hearing difficult y? No 07/07/2016 Is person blind or have serious difficulty seein g? No 07/07/2016 Does person have serious dif ficulty walking/climbing stairs? Yes 07/07/2016 Does person have difficulty dressing/bathing? No 07/07/2016 Does person have difficulty doing errands alone? No 07/07/2016 Cognitive Status Response Date of Assessm ent Does person have difficulty concentrating/remembering/making decisions? No 07/07/2016 documented as of this encounter Plan of Treatment Not on file documented as of this encounter Goals Goal Patient Goal Type Associated Problems Recent Progress Patient-Stated? Author Blood Pressure < 140/90 Blood Pressure 116/80(2021 2:59 PM CDT) No Lang, Marnice A Reduce cholesterol intake. 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 Case: [id number] ? Authorizing Provider: ??Vashti Milan, DO ?? Collected: ? 03/24/2024 10:10 AM ? Ordering Location: ? [facility] - ??Received: ?03/25/2024 07:13 AM ? DermPath Lab ? Pathologist: ? Meredith Burks, ? MD ? Specimens: ?? A) - Skin, left yazidi ? B) - Skin, right chest ? 4 5:05 PM [facility] Final Diagnosis Specimen A. 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 SKIN, right chest: HYPERPLASTIC (HYPERTROPHIC) ACTINIC KERATOSIS (L57.0) 4 5:05 PM [facility] Clinical History A-B: r/o NMSC 4 5:05 PM [facility] Gross Description Specimen A: Received is one formalin filled container labeled with the patient's name and designated left yazidi. The specimen consists of a shave biopsy measuring 7x5x3 mm. Jar 0. Specimen B: Received is one formalin filled container labeled with the patient's name and designated right chest. The specimen consists of a shave biopsy measuring 7x4x1 mm. Jar 0. 4 5:05 PM [facility] Microscopic Description Specimen A. SKIN, left yazidi: Sections show hyperkeratosis, papillomatosis, hypergranulosis, and acanthosis. These histological findings can be seen in a verruca vulgaris or a seborrheic keratosis. Specimen B. SKIN, right chest: There is hyperkeratosis alternating with parakeratosis. There is epidermal hyperplasia with disorderly maturation of keratinocytes with nuclear pleomorphism confined to the lower half of the epidermis. 4 5:05 PM [facility] Disclaimer An external and internal positive and negative controls are appropriate for the histochemical, immunohistochemical and immunofluorescence stain(s) in this case (if any), except where stated explicitly. The performance characteristics of the stain(s) cited in this report were developed and its performance characteristic determined by the Dermatopathology Laboratory at [facility], directed by Dr. Ines Maldonado. These tests need not be, and therefore are not, approved by the [place] Food and Drug Administration. The tests are used for clinical purposes. Billing Codes Specimen Charges Stain Charges 65761 [id number] 1 1 4 5:05 PM CDT DERMATOPATHOLOGY LABORATORY Embedded Images 4 5:05 PM CDT DERMATOPATHOLOGY LABORATORY Pathology/Cytology TISSUE SPECIMEN FROM SKIN / Unknown 03/24/2024 10:10 AM CDT 03/25/2024 7:13 AM CDT Miscellaneous samples (specimen) TISSUE SPECIMEN FROM SKIN / Unknown 03/24/2024 10:10 AM CDT 03/25/2024 7:13 AM CDT Vashti Milan DO LAB - PATHOLOGY/C YTOLOGY ORDERABLES DERMATOPATHOLOGY LABORATORY [facility] - Department of Dermatology [address], [address] [phone] documented in this encounter Visit Diagnoses Not on filedocumented in this encounter Care Teams Ballpoint Pens Assembler Relationship Specialty Start Date End Date Juana Mesa MD [address] [facility] [address] [place] [address] [place] [phone] PCP - General 04/11/21 Juana Mesa MD [address] [facility] [address] [place] [address] [place] [phone] 04/11/21 Juana Mesa MD [address] [facility] [facility] [place] [phone] 07/01/20 Juana Mesa MD [address] [facility] [facility] [place] [phone] 12/22/19 Juana Mesa MD [address] [facility] [address] [place] [address] [place] [phone] 07/21/19 Juana Mesa MD [address] [facility] [facility] [address] [place] [address] [place] [phone] 07/12/18 Juana Mesa MD [address] [facility] [address] [place] [address] [place] [phone] Family Medicine 05/03/18 Ra Jara MD [address] [place] [address] Endocrinology 04/21/14 Dada Lou MD [address] [place] [phone] Internal Medicine 11/09/15 Paco Holedn MD [address] [place] [phone] Neurology 05/11/16 Paramjit Escobar MD [address] [place] [phone] Internal Medicine 11/23/16 documented as of this encounter
--- OUTSIDE RECORDS SUMMARY | 2024-12-22 11:43 | XMS_ITS | Encounter Summary ---
Author Organization [facility] Address [address] [facility] [place] [address] Care Team Providers Care Paralegal Legal Secretary Name Role Phone Juana Mesa MD Primary Care Provider Juana Mesa MD Primary Care Provider Juana Mesa MD Unavailable [phone] Juana Mesa MD Unavailable [phone] Juana Mesa MD Unavailable [phone] Juana Mesa MD Unavailable Juana Mesa MD Unavailable [phone] Juana Mesa MD Unavailable [phone] Ra Jara MD Unavailable Dada Lou MD Unavailable Unavailable Paco Holden MD Unavailable [phone] Paramjit Escobar MD Unavailable [phone] Reason for Visit * Reason Onset Date Comments MEDICATION REFILL 12/31/2020 Encounter Details Date Type Department Care Team (Late st Contact Info) Description 12/31/2020 Refill [facility] [address] [facility] [address] [place] [address] Mychart, Generic Provider MEDICATION REFILL Social History Tobacco Use Types Packs/Day Years [...] 7.0 Result Component 6.4( 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 Lang, Marnice A documented as of this encounter Visit Diagnoses Not on filedocumented in this encounter Care Teams Paralegal Legal Secretary Relationship Specialty Start Date End Date Juana Mesa MD [address] [facility] [place] [phone] PCP - General 07/01/20 04/10/21 Juana Mesa MD [address] [facility] [place] [phone] PCP - General 04/11/21 Juana Mesa MD [address] [facility] [address] [place] [phone] 04/11/21 Juana Mesa MD [address] [facility] [address] [place] [phone] 07/01/20 Juana Mesa MD [address] [facility] [place] [phone] 12/22/19 Juana Mesa MD [address] [facility] [place] [address] 07/21/19 Juana Mesa MD [address] [facility] [place] [phone] 07/12/18 Juana Mesa MD [address] [facility] [place] [address] Family Medicine 05/03/18 Ra Jara MD [address] [place] [phone] Endocrinology 04/21/14 Dada Lou MD [facility] [place] [address] Internal Medicine 11/09/15 Paco Holden MD [facility] [place] [phone] Neurology 05/11/16 Paramjit Escobar MD [facility] [place] [phone] Internal Medicine 11/23/16 documented as of this encounter
--- OUTSIDE RECORDS SUMMARY | 2024-12-22 11:44 | XMS_ITS | Data Portability ---
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 bone density test. Wants to have it done at [facility]. Signs and symptoms of when to seek further care reviewed with patient/caregive r/family/facilit y staff. Patient to follow up with primary care provider or return to clinic for any worsening signs and symptoms. Always present to ER or Urgent Care with any progression of/alarming symptoms, significant changes in symptoms or any concerning or urgent matters. Patient/caregive r/family/facilit y staff verbalized agreement and understanding of treatment plan. F/U 4 weeks, sooner if needed [email or web address] Not available 04/02/2023 08:46:41 04/30/2023 04/30/2023 Medication Changes Nystatin 100,000 unit/gram topical cream and Triamcinolone 0.1% cream Mix Nystatin and Triamcinolone cream together and APPLY TO THE AFFECTED R breast AREA(S) BY TOPICAL ROUTE 2 TIMES PER DAY x 14 days Vitamin D 5,000 units 3x weekly in addition to the weekly 50,000 unit dosage Significant rash under breasts. Will give mix of creams to place under breasts to clear up evan. Notable continued low vitamin D levels despite taking weekly. will add in additional dosing to bring levels up to normal. Signs and symptoms of when to seek further care reviewed with patient/caregive r/family/facilit y staff. Patient to follow up with primary care provider or return to clinic for any worsening signs and symptoms. Always present to ER or Urgent Care with any progression of/alarming symptoms, significant changes in symptoms or any concerning or urgent matters. Patient/caregive r/family/facilit y staff verbalized agreement and understanding of treatment plan. F/U 4 weeks, sooner if needed [email or web address] Not available 04/30/2023 12:45:01 05/28/2023 05/28/2023 Medication Changes Bone density order sent to [facility] Signs and symptoms of when to seek further care reviewed with patient/caregive r/family/facilit y staff. Patient to follow up with primary care provider or return to clinic for any worsening signs and symptoms. Always present to ER or Urgent Care with any progression of/alarming symptoms, significant changes in symptoms or any concerning or urgent matters. Patient/caregive r/family/facilit y staff verbalized agreement and understanding of treatment plan. F/U 4 weeks, sooner if needed [email or web address] Not available 05/28/2023 17:28:40 06/25/2023 06/25/2023 Medication Changes Signs and symptoms of when to seek further care reviewed with patient/caregive r/family/facilit y staff. Patient to follow up with primary care provider or return to clinic for any worsening signs and symptoms. Always present to ER or Urgent Care with any progression of/alarming symptoms, significant changes in symptoms or any concerning or urgent matters. Patient/caregive r/family/facilit y staff verbalized agreement and understanding of treatment plan. F/U 4 weeks, sooner if needed Not available 06/24/2023 11:14:14 07/17/2023 07/17/2023 Medication Changes Mupirocin 2% TID x 14 days then PRN to internal nose scabs zeasorb 2% BID for candidal intertrigo Counseled Vandana on Mupirocin for the nose and try as hard as possible to not pick to allow to heal. Zeasorb to breast areas to decrease evan and resolve, but did discuss that for females it can be a constant jones. Signs and symptoms of when to seek further care reviewed with patient/caregive r/family/facilit y staff. Patient to follow up with primary care provider or return to clinic for any worsening signs and symptoms. Always present to ER or Urgent Care with any progression of/alarming symptoms, significant changes in symptoms or any concerning or urgent matters. Patient/caregive r/family/facilit y staff verbalized agreement and understanding of treatment plan. F/U 4 weeks, sooner if needed [email or web address] Not available 07/17/2023 14:13:10 Plan of Treatment Reminders Order Date Submit Date Provider Last Modified By Organization Details Last Modified Time Details Appointments None recorded. Lab HbA1c (hemoglobi n A1c), blood [address], [place], [address], 3 09:50:32 urinalysis , dipstick, reflex micro [address], [place], [address], 3 17:38:51 unlisted lab - vitamin D total, 25-hydroxy * [address], [place], [address], 3 09:50:34 CMP, serum or plasma [address], [place], [address], 3 09:50:33 magnesium, serum or plasma [address], [place], [address], 3 09:50:34 unlisted lab - complete blood count with auto diff* [address], [place], [address], 3 09:50:31 lipid panel, serum 2022 023 [facility], [address], [place], [address], 3 09:50:33 Referral None recorded. Procedures None recorded. Surgeries None recorded. Imaging bone density 2022 023 [facility], [facility] [facility] [address], [place], [address], 3 15:55:16 bone density [address], [facility] [facility] [address], [place], [address], 3 12:45:12 Medication Orders cholecalci ferol (vitamin D3) 125 mcg (5,000 unit) tablet 2022 023 RANJIT Not available 3 12:47:27 nystatin 100,000 unit/gram topical cream 2022 023 Not available 3 17:25:22 triamcinol one acetonide 0.1 % topical cream 2022 023 [email or web address] Not available 3 17:25:44 escitalopr am 10 mg tablet 2022 023 RANJIT Not available 3 10:01:27 True Metrix Glucose Test Strip 2022 023 [email or web address] Not available 3 11:35:23 Alcohol Prep Pads 2022 023 RANJIT Not available 3 10:01:22 nystatin 100,000 unit/gram topical powder 2022 023 RANJIT Not available 3 10:01:33 Zeasorb AF 2 % topical powder 2022 023 RANJIT Not available 10:07:09 mupirocin 2 % topical ointment 2022 023 RANJIT Not available 10:07:05 Patient TargetsNo targets recorded. Patient Instructions Encounter Date Encounter Id Patient Instructions Last Modified By Organization Details Last Modified Time 04/02/2023 [id number] instructions to assisted living home* - UA order sent to [facility]. Please obtain urine and send to [email or web address]. ATHENAFAX Not available 04/02/2023 11:32:08 Ozempic going through patient assistance? I know we did Jackson and Eddie via patient assistance. [email or web address] Not available 03/28/2023 06:39:52 05/28/2023 [id number] care plan* Not available 01/2023 17:30:14 Reason for Referral None Reported. Results Created Date Observation Date Name Description Value Unit Range Abnormal Flag Note LastModifiedBy Organization Detail LastModifiedTime 04/02/2004/02/2023 URINA LYSIS REFLE X TO MICRO SCOPI C* urine color YELLOW yellow Not Available [facility] [address], [place], [address], 04/04/2023 17:38:51 04/02/20 23 04/02/2023 URINA LYSIS REFLE X TO MICRO SCOPI C* urine clarity CLOUDY clear abnormal Not Available [facility] [address], [place], [address], 04/04/2023 17:38:51 04/02/20 23 04/02/2023 URINA LYSIS REFLE X TO MICRO SCOPI C* urine glucose 250 mg/dL negati ve abnormal Not Available [facility] [address], [place], [address], 04/04/2023 17:38:51 04/02/20 23 04/02/2023 URINA LYSIS REFLE X TO MICRO SCOPI C* urine bilirubin NEGATI VE negati ve Not Available [facility] [address], [place], [address], 04/04/2023 17:38:51 04/02/20 23 04/02/2023 URINA LYSIS REFLE X TO MICRO SCOPI C* urine ketones NEGATI VE mg/dL negati ve Not Available [facility] [address], [place], [address], 04/04/2023 17:38:51 04/02/20 23 04/02/2023 URINA LYSIS REFLE X TO MICRO SCOPI C* urine specific gravity 1.020 1.002- 1.030 Not Available [facility] [address], [place], [address], 04/04/2023 17:38:51 04/02/20 23 04/02/2023 URINA LYSIS REFLE X TO MICRO SCOPI C* urine blood MODERA TE negati ve abnormal Not Available [facility] [address], [place], [address], 04/04/2023 17:38:51 04/02/20 23 04/02/2023 URINA LYSIS REFLE X TO MICRO SCOPI C* urine pH 6.5 5.0-8. 0 Not Available [facility] [address], [place], [address], 04/04/2023 17:38:51 04/02/20 23 04/02/2023 URINA LYSIS REFLE X TO MICRO SCOPI C* urine protein 100 mg/dL negati ve abnormal Not Available [facility] [address], [place], [address], 04/04/2023 17:38:51 04/02/20 23 04/02/2023 URINA LYSIS REFLE X TO MICRO SCOPI C* urine urobilinogen 0.2 eu/dL 0.2-1. 0 Not Available [facility] [address], [place], [address], 04/04/2023 17:38:51 04/02/20 23 04/02/2023 URINA LYSIS REFLE X TO MICRO SCOPI C* urine nitrites NEGATI VE negati ve Not Available [facility] [address], [place], [address], 04/04/2023 17:38:51 04/02/20 23 04/02/2023 URINA LYSIS REFLE X TO MICRO SCOPI C* urine leukocytes SMALL negati ve abnormal Not Available [facility] [address], [place], [address], 04/04/2023 17:38:51 04/02/20 23 04/02/2023 URINE MICRO SCOPI C* white blood cells (WBC) >30/HP F /hpf 0-3/hp f abnormal Refer ence Range s Femal e: 0-5/H PF Male: 0-3/H PF Not Available [facility] [address], [place], [address], 04/04/2023 17:38:52 04/02/20 23 04/02/2023 URINE MICRO SCOPI C* red blood cells (RBC) 3-5/HP F /hpf 0-2/hp f abnormal Not Available [facility] [address], [place], [address], 04/04/2023 17:38:52 04/02/20 23 04/02/2023 URINE MICRO SCOPI C* epithelial cells 0-5/HP F /hpf 0-5/hp f Not Available [facility] [address], [place], [address], 04/04/2023 17:38:52 04/02/20 23 04/02/2023 URINE MICRO SCOPI C* bacteria 2+ none abnormal Not Available [facility] [address], [place], [address], 04/04/2023 17:38:52 04/03/20 23 04/03/2023 COMPL ETE BLOOD COUNT WITH AUTO DIFF* WBC 5.14 10E3/ uL 4.50-1 1.50 Not Available [facility] [address], [place], [address], 04/05/2023 09:50:31 04/03/20 23 04/03/2023 COMPL ETE BLOOD COUNT WITH AUTO DIFF* RBC 3.64 10E6/ uL 4.00-5 .40 low Not Available [facility] [address], [place], [address], 04/05/2023 09:50:31 04/03/20 23 04/03/2023 COMPL ETE BLOOD COUNT WITH AUTO DIFF* HGB 11.0 g/dL 12.0-1 5.0 low Not Available [facility] [address], [place], [address], 04/05/2023 09:50:31 04/03/20 23 04/03/2023 COMPL ETE BLOOD COUNT WITH AUTO DIFF* HCT 36.6 % 35.0-4 9.0 Not Available [facility] [address], [place], [address], 04/05/2023 09:50:31 04/03/2004/03/2023 COMPL ETE BLOOD COUNT WITH AUTO DIFF* MCV 101 fL 80-100 high Not Available [facility] [address], [place], [address], 04/05/2023 09:50:31 04/03/20 23 04/03/2023 COMPL ETE BLOOD COUNT WITH AUTO DIFF* MCH 30 pg 26-32 Not Available [facility] [address], [place], [address], 04/05/2023 09:50:31 04/03/2004/03/2023 COMPL ETE BLOOD COUNT WITH AUTO DIFF* MCHC 30 g/dL 32-36 low Not Available [facility] [address], [place], [address], 04/05/2023 09:50:31 04/03/20 23 04/03/2023 COMPL ETE BLOOD COUNT WITH AUTO DIFF* RDW 19.6 % 11.5-1 4.5 high Not Available [facility] [address], [place], [address], 04/05/2023 09:50:31 04/03/20 23 04/03/2023 COMPL ETE BLOOD COUNT WITH AUTO DIFF* plt 143 10E3/ uL 150-45 0 low Not Available [facility] [address], [place], [address], 04/05/2023 09:50:31 04/03/20 23 04/03/2023 COMPL ETE BLOOD COUNT WITH AUTO DIFF* reflex MANUAL DIFFER ENTIAL Not Available [facility] [address], [place], [address], 04/05/2023 09:50:31 04/03/20 23 04/03/2023 HEMOG LOBIN A1C* hemoglobin A1C 5.8 % 3.7-6. 2 Not Available [facility] [address], [place], [address], 04/05/2023 09:50:32 04/03/2004/03/2023 HEMOG LOBIN A1C* EAG 120 mg/dL Nakia l: 69-11 4 mg/dL Predi abete s: 117-1 37 mg/dL Diabe los: 140 mg/dL or Great er Not Available [facility] [address], [place], [address], 04/05/2023 09:50:32 04/03/20 23 04/03/2023 LIPID PANEL * cholesterol 116 mg/dL <200 Natio nal Bharati stero l Educa tion Progr am (NCEP ) guide lines : Cierra able: <200 mg/dL Borde rline : 200-2 39 mg/dL High: =>240 mg/dL Not Available [facility] [address], [place], [address], 04/05/2023 09:50:33 04/03/20 23 04/03/2023 LIPID PANEL * LDL 56 mg/dL <100 Natio nal Bharati stero l Educa tion Progr am (NCEP ) Guide lines : Optim al: <100 mg/dL Near Optim al: 100 - 129 mg/dL Borde rline : 130 - 159 mg/dL High: 160 - 189 mg/dL Very High: =>190 mg/dL Not Available [facility] [address], [place], [address], 04/05/2023 09:50:33 04/03/20 23 04/03/2023 LIPID PANEL * HDL 54 mg/dL 40-59 Natio nal Bharati stero l Educa tion Progr am (NCEP ) guide lines : Low: <40 mg/dL High: =>60 mg/dL Not Available [facility] [address], [place], [address], 04/05/2023 09:50:33 04/03/20 23 04/03/2023 LIPID PANEL * triglyceride s 56 mg/dL <150 Natio nal Bharati stero l Educa tion Progr am (NCEP ) guide lines : Nakia l: <150 mg/dL Borde rline : 150-1 99 mg/dL High: 200-4 99 mg/dL Very High: =>500 mg/dL Not Available [facility] [address], [place], [address], 04/05/2023 09:50:33 04/03/20 23 04/03/2023 LIPID PANEL * VLDL 11 mg/dL <30 Not Available [facility] [address], [place], [address], 04/05/2023 09:50:33 04/03/20 23 04/03/2023 MAGNE SIUM* magnesium 1.60 mg/dL 1.60-2 .40 Not Available [facility] [address], [place], [address], 04/05/2023 09:50:34 04/03/20 23 04/03/2023 MANUA L DIFFE RENTI AL* seg 71.0 % 50.0-7 0.0 high Not Available [facility] [address], [place], [address], 04/05/2023 09:50:35 04/03/2004/03/2023 MANUA L DIFFE RENTI AL* lymph 13.0 % 18.0-4 2.0 low Not Available [facility] [address], [place], [address], 04/05/2023 09:50:35 04/03/20 23 04/03/2023 MANUA L DIFFE RENTI AL* mono 9.0 % 2.0-11 .0 Not Available [facility] [address], [place], [address], 04/05/2023 09:50:35 04/03/20 23 04/03/2023 MANUA L DIFFE RENTI AL* eos 6.0 % 1.0-3. 0 high Not Available [facility] [address], [place], [address], 04/05/2023 09:50:35 04/03/20 23 04/03/2023 MANUA L DIFFE RENTI AL* baso 0.0 % 0.0-2. 0 Not Available [facility] [address], [place], [address], 04/05/2023 09:50:35 04/03/20 23 04/03/2023 MANUA L DIFFE RENTI AL* segabs 3.65 K/uL 2.30-8 .10 Not Available [facility] [address], [place], [address], 04/05/2023 09:50:35 04/03/20 23 04/03/2023 MANUA L DIFFE RENTI AL* lymphabs 0.67 K/uL 0.80-4 .80 low Not Available [facility] [address], [place], [address], 04/05/2023 09:50:35 04/03/2004/03/2023 MANUA L DIFFE RENTI AL* monoabs 0.46 K/uL 0.45-1 .30 Not Available [facility] [address], [place], [address], 04/05/2023 09:50:35 04/03/20 23 04/03/2023 MANUA L DIFFE RENTI AL* eosabs 0.31 K/uL 0.00-0 .40 Not Available [facility] [address], [place], [address], 04/05/2023 09:50:35 04/03/20 23 04/03/2023 MANUA L DIFFE RENTI AL* basoabs 0.00 K/uL 0.00-0 .10 Not Available [facility] [address], [place], [address], 04/05/2023 09:50:35 04/03/20 23 04/03/2023 MANUA L DIFFE RENTI AL* meta 1.0 % Not Available [facility] [address], [place], [address], 04/05/2023 09:50:35 04/03/20 23 04/03/2023 MANUA L DIFFE RENTI AL* metaabs 0.05 K/uL Not Available [facility] [address], [place], [address], 04/05/2023 09:50:35 03/05/20 23 03/04/2023 CT, brain , w/o contr ast No observ ation record ed. [email or web address] [place], [place] [address] [address], [place], [address], 04/02/2023 08:47:01 05/18/20 23 2023 MAMMO , scree sonu, digit al, bilat eral No observ ation record ed. [facility] [address], [place], [address], 05/28/2023 10:00:11 10/12/20 23 10/10/2023 DEXA No observ ation record ed. [email or web address] [facility] [address], [place], [address], 10/12/2023 17:37:08 Result Notes None recorded. 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 7452813027 Completed 202106/24/2023 JANNETH Linda, PMHNP-BC [address] [place], [address] , [facility] 3 11:08:17 Chronic obstructi ve pulmonary disease 83693248 Active 2021 Not Available [facility] 4 04:19:09 Atrial fibrillat ion 71055994 Completed 202106/24/2023 JANNETH Linda, PMHNP-BC [address] [place], [address] , [facility] 3 11:08:12 Multiple complicat ions due to type 2 diabetes mellitus Completed 202106/24/2023 JANNETH Linda, PMHNP-BC [address] [place], [address] , [facility] 3 11:08:57 Congestiv e heart failure 93863879 Completed 202106/24/2023 Paulette LibbyJANNETH Lal, PMHNP-BC [address] [place], [address] , [facility] 3 11:08:27 Allergic conjuncti vitis 681790458 Active 2021 Not Available [facility] 4 04:19:09 Allergic rhinitis 91345149 Active 2021 Not Available [facility] 4 04:19:09 Hemorrhoi ds 23476269 Completed 202106/24/2023 Paulette Jones JANNETH Prieto, PMHNP-BC [address] [place], [address] , [facility] 3 11:08:55 Hyperlipi demia 24242971 Completed 202106/24/2023 Paulette Goldman JANNETH Prieto, PMHNP-BC [address] [place], [address] , [facility] 3 11:09:55 Essential hypertens ion 68344855 Active 2021 [facility] Available [facility] 4 04:19:09 Complicat ion due to diabetes mellitus 28757471 Active 2021 Not Available [facility] 4 04:19:09 Osteoporo sis 74023512 Active 2021 Not Available [facility] 4 04:19:09 Restless legs 60951116 Active 2021 Not Available [facility] 4 04:19:09 Altered bowel function 40891251 Completed 202206/24/2023 Paulette SouzaJANNETH Lal, PMHNP-BC [address] [place], [address] , [facility] 3 11:09:14 Urinary incontine nce 659934195 Active 2022 Not Available [facility] 4 04:19:09 Osteoarth ritis of multiple joints 203128222 Active 2022 Not Available [facility] 4 04:19:09 Vitamin D deficienc y 68808048 Active 2022 Not Available [facility] 4 04:19:09 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 Procedures Surgical History Date Name Laterality Status Provider Name and Address Organization Details Recorded Time Pacemaker completed Renay Kincaid [facility] 05/12/2022 14:47:46 open heart surgery completed Renay Kincaid [facility] 05/12/2022 14:47:57 total hysterectomy completed Renay Kincaid [facility] 05/12/2022 14:48:52 arterial embolectomy completed Paulette Prieto, [employer] EXECUTIVE-BC, PMHNP-BC [address] [place] [address], [address] 06/14/2022 10:03:38 Appendectomy completed Allie Deshpande [facility] 12/04/2022 09:38:03 extraction of cataract completed Allie Deshpande [facility] 12/04/2022 09:38:37 replacement of valved cardiac conduit completed Allie Deshpande [facility] 12/04/2022 09:39:16 total abdominal hysterectomy with bilateral salpingo-oophorec joyce completed Allie Deshpande [facility] 12/04/2022 09:40:14 Imaging Results Imaging Date Name Status LastModified by Organiz ation Details LastModified Time 03/04/2023 CT, brain, w/o contrast completed [email or web address] [address] [place] [address], [address], 04/02/2023 08:47:01 2023 MAMMO, screening, digital, bilateral completed [email or web address] [place] [address] [facility] [address], [address], 05/28/2023 10:00:11 10/10/2023 [facility] [address], [place], [address], 10/12/2023 17:37:08 Procedure Notes None recorded. Medical Equipment None Reported. Allergies Allergen ID Allergen Name Allergen Category Reaction Reaction Severity Criticality Documentation Date Start Date Code Code System Note Provider Name and Address Organization Details Recorded Time 5022 codeine medicatio n abdominal pain nausea vomiting Not available mild Not available Not available 05/12/2022 2670 RxNorm Renay Kincaid [facility] [employer] [facility] 2 08:39:37 5952 doxycycli ne Not available vomiting Not available Not available 01/31/2023 3640 RxNorm Facundo Joseph [facility] [employer] [facility] 3 12:20:22 Medications Name Sig Start Date Stop Date Status Note LastModified by Organization Details LastModified Time losartan 50 mg tablet Take 1 tablet every day by oral route for 10 days. 02/15 completed Not Available Not Available Not Available amoxicill in 500 mg capsule 05/12 completed Not Available Not Available Not Available furosemid e 40 mg tablet 06/14 completed Not Available Not Available Not Available metformin 500 mg tablet Take 1 tablet twice a day by oral route. 07/11 completed Not Available Not Available Not Available carvedilo l 25 mg tablet Take 1 tablet twice a day by oral route as directed . 12/07 completed cardiolo gy Not Available Not Available Not Available sennoside s 8.6 mg tablet Take 1 tablet twice a day by oral route. 03/03 completed Not Available Not Available Not Available ropinirol e 1 mg tablet TAKE ONE TABLET BY MOUTH DAILY AT BEDTIME active Not Available Not Available No t Available ipratropi um 0.5 mg-albute rol 3 mg (2.5 mg base)/3 mL nebulizat ion soln Inhale 3 mL every 6 hours by nebuliza tion route as needed for 90 days. 02/15 completed Not Available Not Available Not Available donepezil 5 mg tablet TAKE ONE TABLET BY MOUTH DAILY AT BEDTIME active Not Available Not Available No t Available polyethyl connie glycol 3350 17 gram oral powder packet Take 1 packet twice a day by oral route as needed. 03/03 completed Not Available Not Available Not Available atorvasta tin 10 mg tablet TAKE ONE TABLET BY MOUTH DAILY active Not Available Not Available No t Available azithromy stefania 250 mg tablet 05/12 completed Not Available Not Available Not Available nystatin 100,000 unit/gram topical ointment APPLY TO RASH 2 TIMES A DAY DIRECTED active Not Available Not Available No t Available ketotifen 0.025 % (0.035 %) eye drops INSTILL 1 DROP INTO EACH EYE(S) BY OPHTHALM IC ROUTE 2 TIMES PER DAY active Not Available Not Available No t Available cephalexi n 250 mg capsule 02/14 completed Not Available Not Available Not Available ondansetr on HCl 4 mg tablet Take 1 tablet every 8 hours by oral route as needed. 02/15 completed Not Available Not Available Not Available prednison e 20 mg tablet Take 2 tablets every day by oral route for 3 days. 01/22 completed Not Available Not Available Not Available alendrona te 70 mg tablet TAKE ONE TABLET BY MOUTH WEEKLY ON active Not Available Not Available No t Available dexametha sone 6 mg tablet Take 1 tablet every day by oral route for 7 days. 11/30 completed Not Available Not Available Not Available doxycycli ne hyclate 50 mg capsule Take 1 capsule twice a day by oral route. 06/14 completed Not Available Not Available Not Available warfarin 2.5 mg tablet 02/26 completed Not Available Not Available Not Available potassium chloride ER 10 mEq tablet,ex tended release Take 1 tablet every day by oral route. 05/12 completed Not Available Not Available Not Available Zeasorb AF 2 % topical powder APPLY TO THE AFFECTED breast AREA(S) BY TOPICAL ROUTE 2 TIMES PER DAY IN THE MORNING AND EVENING active Not Available Not Available No t Available dextromet horphan-g uaifenesi n 10 mg-100 mg/5 mL oral syrup Take 10 mL 4 times a day by oral route as needed for 59 days. 02/15 completed Not Available Not Available Not Available aspirin 81 mg tablet,de layed release Take 1 tablet every day by oral route. 07/11 completed Not Available Not Available Not Available triamcino lone acetonide 0.1 % topical cream Mix Nystatin and Triamcin olone cream together and APPLY TO THE AFFECTED R breast AREA(S) BY TOPICAL ROUTE 2 TIMES PER DAY x 14 days 05/28 completed Not Available Not Available Not Available spironola ctone 25 mg tablet Take 0.5 tablets every day by oral route. active Not Available Not Available No t Available carvedilo l 3.125 mg tablet Take 1 tablet twice a day by oral route as directed . active Not Available Not Available No t Available warfarin 4 mg tablet active Not Available Not Available Not Available hydrocort isone acetate 25 mg rectal supposito ry Insert 1 supposit ory twice a day by rectal route for 14 days. 08/26 completed Not Available Not Available Not Available warfarin 3 mg tablet TAKE 1 TABLET (3 MG) BY ORAL ROUTE tue,th,f ri,sat,s un active Not Available Not Available No t Available famotidin e 20 mg tablet TAKE ONE TABLET BY MOUTH DAILY active Not Available Not Available No t Available ropinirol e 0.25 mg tablet Take 1 tablet every day by oral route at bedtime for 30 days. 10/23 completed Not Available Not Available Not Available benzonata te 100 mg capsule Take 1 capsule 3 times a day by oral route for 7 days. 02/15 completed Not Available Not Available Not Available ropinirol e 0.5 mg tablet Take 1 tablet every day by oral route at bedtime for 30 days. 11/13 completed Not Available Not Available Not Available nystatin 100,000 unit/gram topical cream Mix Nystatin and Triamcin olone cream together and APPLY TO THE AFFECTED R breast AREA(S) BY TOPICAL ROUTE 2 TIMES PER DAY x 14 days 05/28 completed Not Available Not Available Not Available olopatadi ne 0.1 % eye drops INSTILL 1 DROP INTO AFFECTED EYE(S) BY OPHTHALM IC ROUTE 2 TIMES PER DAY AT AN INTERVAL OF 6 TO 8 HOURS 06/26 completed Not Available Not Available Not Available warfarin 2 mg tablet TAKE 1 TABLET (2 MG) BY ORAL ROUTE Mon and Fri active Not Available Not Available No t Available losartan 25 mg tablet Take 1 tablet every day by oral route. 12/20 completed cardiolo gy manage Not Available Not Available Not Available monteluka st 10 mg tablet Take 1 tablet every day by oral route at bedtime for 30 days. 02/14 completed Not Available Not Available Not Available allopurin ol 300 mg tablet Take 1 tablet every day by oral route. 07/11 completed Not Available Not Available Not Available mupirocin 2 % topical ointment APPLY A SMALL AMOUNT TO THE AFFECTED nasal AREA BY TOPICAL ROUTE 3 TIMES PER DAY x 14 days and then PRN active Not Available Not Available No t Available furosemid e 20 mg tablet Take 1 tablet every day by oral route for 30 days. active Not Available Not Available No t Available nystatin 100,000 unit/gram topical powder APPLY TO THE AFFECTED AREA(S) BY TOPICAL ROUTE 2 TIMES PER DAY PRN active Not Available Not Available No t Available azelastin e 137 mcg (0.1 %) nasal spray Vance 2 sprays twice a day by intranas al route for 30 days. active Not Available Not Available No t Available warfarin 1 mg tablet Take 1 tablet every day by oral route for 2 days. 06/24 completed Not Available Not Available Not Available polyethyl connie glycol 3350 17 gram/dose oral powder Take 17 g twice a day by oral route as needed. 03/03 completed Not Available Not Available Not Available methylpre dnisolone 4 mg tablets in a dose pack 05/12 completed Not Available Not Available Not Available albuterol sulfate HFA 90 mcg/actua tion aerosol inhaler Inhale 2 puffs every 4 hours by inhalati on route as needed. active Not Available Not Available No t Available Vitamin D2 1,250 mcg (50,000 unit) capsule Take 1 capsule every week by oral route as directed for 90 days. active Not Available Not Available No t Available celecoxib 100 mg capsule 05/12 completed Not Available Not Available Not Available cefdinir 300 mg capsule 05/12 completed Not Available Not Available Not Available losartan 100 mg tablet TAKE ONE TABLET BY MOUTH DAILY 03/27 completed cardio put on hold 03/21 Not Available Not Available Not Available fluticaso ne propionat e 50 mcg/actua tion nasal spray,edgard pension ONE SPRAY IN NOSTRIL TWICE DAILY DIRECTED active Not Available Not Available No t Available Fiber-Lax 625 mg tablet Take 1 tablet every day by oral route. active Not Available Not Available No t Available enoxapari n 80 mg/0.8 mL subcutane ous syringe 08/03 completed Not Available Not Available Not Available enoxapari n 40 mg/0.4 mL subcutane ous syringe Inject 0.8 mL every day by subcutan eous route for 14 days. 08/03 completed Not Available Not Available Not Available escitalop rupesh 10 mg tablet Take 1 tablet every day by oral route for 90 days. active Not Available Not Available No t Available Senna Plus 8.6 mg-50 mg tablet 03/27 completed Not Available Not Available Not Available potassium chloride ER 10 mEq tablet,ex tended release(p art/cryst ) Take 1 tablet every day by oral route. 06/14 completed Not Available Not Available Not Available lancing device 03/03 completed Not Available Not Available Not Available Alcohol Prep Pads Apply 1 pad every day by topical route for 90 days. active Not Available Not Available No t Available Unistik 3 Comfort Device kit Take 1 kit 3 times a day by miscell. route for 90 days. active Not Available Not Available No t Available trospium 20 mg tablet Take 1 tablet twice a day by oral route for 30 days. 02/03 completed Not Available Not Available Not Available Pain Relief Extra Strength (acetamin ophen) 500 mg tablet Take 2 tablets every 8 hours by oral route as needed. active Not Available Not Available No t Available Novofine Autocover 30 gauge x 1/3 needle 03/03 completed Not Available Not Available Not Available Guaifenes in DM Take 2 tsp four times a day as needed for cough 02/15 completed Not Available Not Available Not Available dextromet horphan ER 30 mg/5 mL oral suspensio n Take 10 mL every 12 hours by oral route as needed. 07/11 completed Not Available Not Available Not Available cholecalc iferol (vitamin D3) 125 mcg (5,000 unit) tablet Take 1 tablet 3 times a week by oral route for 90 days. 2022 active Not Available Not Available Not Avai lable Calmosept ine 0.44 %-20.6 % topical ointment Apply thin later topicall y BID and PRN to buttocks and surround ing skin areas 01/18 completed stopped by hospital Not Available Not Available Not Available dextromet horphan-g uaifenesi n 20 mg-200 mg/10 mL oral liquid in packet Take 10 mL every 4 hours by oral route as needed. 02/03 completed Not Available Not Available Not Available Prolia 60 mg/mL subcutane ous syringe Take 1 ml subcutan eous every 6 months for osteopor osis 09/26 completed Not Available Not Available Not Available Cough DM ER 30 mg/5 mL oral suspensio n,extende d release 08/05 completed Not Available Not Available Not Available Sterilanc e TL 30 gauge 03/03 completed Not Available Not Available Not Available Mucus DM Max ER 60 mg-1,200 mg tablet,ex tended release TAKE ONE TABLET BY MOUTH 2 TIMES A DAY active Not Available Not Available No t Available Farxiga 10 mg tablet Take 1 tablet every day by oral route for 90 days. 2022 active Not Available Not Available Not Avai lable Hemorrhoi yakov (phenylep h-cocoa) 0.25 %-88.44 % rectal supposito ry Insert 1 supposit ory twice a day by rectal route as needed. 08/05 completed Not Available Not Available Not Available Jardiance 10 mg tablet TAKE ONE TABLET BY MOUTH DAILY 07/11 completed Not Available Not Available Not Available True Metrix Glucose Test Strip Take 1 strip every day by miscell. route for 90 days. active Not Available Not Available No t Available True Metrix Glucose Meter 03/03 completed Not Available Not Available Not Available Entresto 49 mg-51 mg tablet 05/28 completed Not Available Not Available Not Available Entresto 24 mg-26 mg tablet Take 1 tablet twice a day by oral route for 30 days. active Not Available Not Available No t Available Basaglbartolo GarzaPen U-100 Insulin 100 unit/mL (3 mL) subcutane ous Inject 15 units every day by sub-q route at bedtime. 07/11 completed Not Available Not Available Not Available Refresh Relieva 0.5 %-0.9 % eye drops active Not Available Not Available Not Available Breztri Aerospher e 160 mcg-9mcg- 4.8mcg/ac tuation HFA aerosol inhaler Inhale 2 puffs twice a day by inhalati on route. 2021 active Not Available Not Available Not Avai lable Ozempic 1 mg/dose (4 mg/3 mL) subcutane ous pen injector INJECT 1MG SUBCUTAN EOULSY ONCE A WEEK ON SUNDAYS active Not Available Not Available No t Available semagluti de (weight loss) 1 mg/0.5 mL subcutane ous pen injector Inject 1mg under the skin once a week 02/03 completed Not Available Not Available Not Available aspirin 81 mg capsule Take 1 capsule every day by oral route as directed . 01/18 completed hospital stopped Not Available Not Available Not Available Vitals Date Recorded Body height Heart rate Respiratory rate Oxygen saturation Oxygen saturation in Arterial blood by Pulse oximetry Body temperature Systolic blood pressure Diastolic blood pressure Provider Name and Address Organization Details Last Updated DateTime 3 165.1 cm 85 /min 16 /min 98 % 98 % 97.5 [degF] 118 mm[Hg] 68 mm[Hg] Sonja Chou [facility] 3 10:06:54 Date Recorded Body height Body mass index (BMI) Body weight Heart rate Respiratory rate Oxygen saturation Oxygen saturation in Arterial blood by Pulse oximetry Body temperature Systolic blood pressure Diastolic blood pressure Provider Name and Address Organization Details Last Updated DateTime 3 165.1 cm 26.8 kg/m2 82683.3 7 g 75 /min 16 /min 99 % 99 % 97.3 [degF] 122 mm[Hg] 78 mm[Hg] Sonja Chou [facility] 3 10:21:51 Date Recorded Body height Heart rate Respiratory rate Oxygen saturation Oxygen saturation in Arterial blood by Pulse oximetry Body temperature Body mass index (BMI) Body weight Systolic blood pressure Diastolic blood pressure Provider Name and Address Organization Details Last Updated DateTime 3 165.1 cm 64 /min 16 /min 96 % 96 % 97.3 [degF] 28.1 kg/m2 88236.6 7 g 124 mm[Hg] 78 mm[Hg] Sonja Chou [facility] 3 09:59:14 Date Recorded Body height Heart rate Respiratory rate Oxygen saturation Oxygen saturation in Arterial blood by Pulse oximetry Body temperature Systolic blood pressure Diastolic blood pressure Provider Name and Address Organization Details Last Updated DateTime 3 165.1 cm 75 /min 16 /min 93 % 93 % 98.3 [degF] 138 mm[Hg] 80 mm[Hg] oTm Roe [facility] 3 11:35:52 Date Recorded Body mass index (BMI) Body weight Provider Name and Address Organization Details Last Updated DateTime 06/25/2023 28.3 kg/m2 53192.42 g Gavino Boyce [facility] 06/25/2023 11:43:05 Date Recorded Body height Heart rate Respiratory rate Oxygen saturation Oxygen saturation in Arterial blood by Pulse oximetry Body temperature Systolic blood pressure Diastolic blood pressure Provider Name and Address Organization Details Last Updated DateTime 3 165.1 cm 66 /min 16 /min 96 % 96 % 97.7 [degF] 118 mm[Hg] 76 mm[Hg] Gavino Boyce [facility] 3 11:19:23 Social History Question Answer Notes LastModified by Organizat ion Details LastModified Time Tobacco Smoking Status Former Smoker Renay [facility] 05/12/2022 14:55:35 What Is Your Level Of Alcohol Consumption? Occasional Less Than 1 Drink Per Day [email or web address] Information not available 07/10/2023 How Many Years Have You Consumed Alcohol? 50 [email or web address] Information not available 05/12/2022 Are You Currently Sexually Active With Anyone Who Has Traveled (within The Last 12 Weeks) To A Zika-affected Area? No [email or web address] Information not available 05/12/2022 Do You Wear A Helmet When Biking? Yes [email or web address] Information not available 05/12/2022 Are You Blind Or Do You Have Difficulty Seeing? No [email or web address] Information not available 05/12/2022 Is Blood Transfusion Acceptable In An Emergency? Yes [email or web address] Information not available 05/15/2022 What Is Your Level Of Caffeine Consumption? Occasional [email or web address] Information not available 05/12/2022 What Type Of Fermentation Manager Do You Use? None [email or web address] Information not available 05/12/2022 In The 14 Days Before Symptom Onset, Have You Had Close Contact With A Laboratory-confir med COVID-19 While That Case Was Ill? No [email or web address] Information not available 05/12/2022 In The 14 Days Before Symptom Onset, Have You Had Close Contact With A Person Who Is Under Investigation For COVID-19 While That Person Was Ill? No [email or web address] Information not available 05/12/2022 Have You Been To An Area Known To Be High Risk For COVID-19? No [email or web address] Information not available 05/12/2022 Are You Currently Employed? No [email or web address] Information not available 05/12/2022 Are You Deaf Or Do You Have Serious Difficulty Hearing? No Information not available 05/12/2022 What Type Of Diet Are You Following? SPECIFIC Watches Greens. [email or web address] Information not available 05/12/2022 Have You Processed Blood Or Body Fluids From An Ebola Virus Disease Patient Without Appropriate PPE? No [email or web address] Information not available 05/12/2022 Do You Reside In Or Have You Traveled To An Area Where Ebola Virus Transmission Is Active? No [email or web address] Information not available 05/12/2022 What Is The Highest Grade Or Level Of School You Have Completed Or The Highest Degree You Have Received? [id number] [email or web address] Information not available 05/12/2022 Have There Been Any Changes To Your Family Or Social Situation? Yes [email or web address] Information no t available 05/12/2022 What Is The Fluoride Status Of Your Home? Unknown [email or web address] Information not available 05/12/2022 When Did You Quit Smoking? 16+yearssince lastcigarette [email or web address] Information not available 05/15/2022 Are There Any Guns Present In Your Home? No [email or web address] Information not available 05/12/2022 Which Of Your Hands Is Dominant? Right Information not available 05/12/2022 Have You Recently Or Are You Planning To Travel To An Area With Zika Virus? No [email or web address] Information not available 05/12/2022 Do You Use Insect Repellent Routinely? No Information not available 05/12/2022 Do You Have A Medical Power Of Case Finisher? Yes [email or web address] Information not available 05/15/2022 What Was The Date Of Your Most Recent Tobacco Screening? 03/05/2023 [email or web address] Information not available 03/05/2023 How Many Children Do You Have? 2 [email or web address] Information not available 05/12/2022 What Is Your Current Pack Years? 30ormorepacky luis vldnheabq61 Information not available 12/07/2022 Have You Ever Been Counseled For Unhealthy Alcohol Use? No [email or web address] Information not available 05/15/2022 Do You Have Any Pets? No [email or web address] Information not available 05/12/2022 What Is Your Relationship Status? [email or web address] Information not available 05/12/2022 Do You Use Your Seat Belt Or Car Seat Routinely? Yes [email or web address] Information not available 05/12/2022 Are You Sexually Active? No [email or web address] Information not available 05/12/2022 Do You Have Smoke And Carbon Monoxide Detectors In Your Home? Yes [email or web address] Information not available 05/12/2022 At What Age Did You Start Smoking Tobacco? 16 Information not available 05/12/2022 Are You Passively Exposed To Smoke? No [email or web address] Information no t available 05/12/2022 Do You Participate In Social Media? Yes [email or web address] Information not available 05/15/2022 What Types Of Sporting Activities Do You Participate In? Group Therapy [email or web address] Information not available 05/12/2022 Do You Feel Stressed (tense, Restless, Nervous, Or Anxious, Or Unable To Sleep At Night)? [id number] [email or web address] Information not available 05/12/2022 Do You Use Any Illicit Or Recreational Drugs? No Information not available 05/12/2022 Do You Use Sunscreen Routinely? No [email or web address] Information not available 05/12/2022 How Many Years Have You Smoked Tobacco? 10 [email or web address] Information not available 05/12/2022 Have You Recently Traveled Abroad? No [email or web address] Information not available 05/12/2022 Are You Currently In School? No [email or web address] Information not available 05/12/2022 Do You Have Any Dietary Restrictions? No [email or web address] Information not available 05/12/2022 Do You Or Have You Ever Used Any Other Forms Of Tobacco Or Nicotine? No [email or web address] Information not available 05/12/2022 Sex: Female Functional Status Question Answer Note LastModified by Organizat ion Details LastModified Time Do you have difficulty walking or climbing stairs? Yes [email or web address] Information not available 05/12/2022 Do you have transportation difficulties? Yes [email or web address] Information not available 05/12/2022 Are you able to walk? YESASSIST [email or web address] Information not available 05/12/2022 Do you have difficulty doing errands alone? Yes [email or web address] Information not available 05/12/2022 Are you able to care for yourself? Yes Information not available 05/12/2022 Do you have difficulty dressing or bathing? Yes [email or web address] Information not available 05/12/2022 What is your exercise level? None [email or web address] Information not available 05/12/2022 Mental Status Question Answer Note LastModified by Organization D etails LastModified Time Do you have difficulty concentrating, remembering or making decisions? Yes [email or web address] Information no t available 05/12/2022 Family History Relationship Description Onset Age of this Age Resolved Age Notes LastModified by Organization Details LastModified Time Father Intracranial aneurysm [email or web address] Not available 04/26 14:51:37 Daughter Myocardial infarction 48 [email or web address] Not available 14:57:47 Daughter Hypertensive disorder [email or web address] Not available 04/26 14:58:09 Daughter Anxiety [email or web address] Not avail able 05/12/2022 14:58:19 Daughter Depressive disorder [email or web address] Not available 04/26 14:58:27 Daughter Coronary atherosclero sis [email or web address] Not available 2021 19:25:18 Brother Heart disease [email or web address] Not available 2021 19:25:01 Mother Heart disease [email or web address] Not available 2021 19:25:34 Mother Hypertensive disorder Not available 2021 19:25:43 Mother Hyperlipidem ia [email or web address] Not available 2022 09:41:15 Mother Unexplained visual loss [email or web address] Not available 07/2023 09:41:45 Mother History of macular degeneration [email or web address] Not available 07/2023 09:42:55 Mother Coronary arterioscler osis [email or web address] Not available 2022 09:43:24 Mother Cataract [email or web address] Not available 07/10/2023 09:27:58 Maternal Grandmother Diabetes mellitus [email or web address] Not available 2022 09:42:04 Unspecified Relation Disorder of thyroid gland [email or web address] Not available 2022 09:43:51 Medical History Condition Response Allergies/Hayfever Y Sepsis Y Cerebrovascular Accident (CVA) Y Hematological Diseases / Disorders Y Hospitalizations Y Vascular Diseases / Disorders Y Urinary Incontinence Y Depression Y Pneumonia Y Pulmonary Diseases / Disorders Y UTI Y Anemia Y Rheumatic Diseases / Disorders Y Obstructive Sleep Apnea Y Atherosclerosis of [place] co ronary artery of [place] heart without angina pectoris Y Diabetes Y Gynecological Diseases / Disorders Y Cataracts Y Chronic Obstructive Pulmonary Disease (C OPD) Y Gastrointestinal Diseases / Disorders Y AICD / Pacemaker Y Musculoskeletal Diseases / Disorders Y Myocardial Infarction Y Infectious Disease/Disorders/Virus Y Congestive Heart Failure (CHF) Y Insomnia Y Hyperlipidemia Y Cancer Y Skin Diseases / Disorders Y Dementia Y Asthma Y Cellulitis Y Foot Diseases / Disorders Cardiac Diseases / Disorders Y Vitamin deficiency Y Neuropathy Y Neurological Diseases / Disorders Y Eye Disease / Disorders Y Hypertension Y Osteoporosis Y Atrial Fibrillation / AFIB Y Gynecological HistoryNo gynecological history recorded. Obstetrics History GPAL:G 0 P 0 0 0 0 Immunizations Vaccine Type Date Status Note Provider Nam e and Address Organization Details Recorded Time COVID-19, mRNA, LNP-S, PF, 30 mcg/0.3 mL dose 1 completed Not Available [facility] 04:19:09 COVID-19, mRNA, LNP-S, PF, 30 mcg/0.3 mL dose 1 completed [facility]04[facility] 04:19:09 pneumococcal polysaccharide PPV23 8 completed Not Available [facility] 12/04/2023 04:19:09 pneumococcal polysaccharide PPV23 1 completed Not Available [facility] 12/04/2023 04:19:09 pneumococcal polysaccharide PPV23 7 completed Not Available [facility] 12/04/2023 04:19:09 pneumococcal polysaccharide PPV23 6 completed Not Available [facility] 12/04/2023 04:19:09 pneumococcal polysaccharide PPV23 8 completed Not Available [facility] 12/04/2023 04:19:09 Pneumococcal conjugate PCV 13 5 completed Not Available [facility] 12/04/2023 04:19:10 Td(adult) unspecified formulation 3 completed Not Available [facility] 12/04/2023 04:19:10 Td(adult) unspecified formulation 9 completed Not Available [facility] 12/04/2023 04:19:10 Td(adult) unspecified formulation 9 completed Not Available [facility] 12/04/2023 04:19:10 Tdap 1 completed Not Available [facility] 12/04/2023 04:19:10 tetanus toxoid, unspecified formulation 3 completed Not Available [facility] 12/04/2023 04:19:10 Influenza, split virus, quadrivalent, preservative 0 completed Not Available [facility] 12/04/2023 04:19:09 COVID-19, mRNA, LNP-S, PF, 30 mcg/0.3 mL dose 1 completed Not Available [facility] 12/04/2023 04:19:09 COVID-19, mRNA, LNP-S, PF, 30 mcg/0.3 mL dose 2 completed Not Available [facility] 12/04/2023 04:19:09 Tdap 2 completed Not Available [facility] 12/04/2023 04:19:10 influenza, unspecified formulation 3 completed Not Available [facility] 12/04/2023 04:19:10 influenza, unspecified formulation 4 completed Not Available [facility] 12/04/2023 04:19:10 influenza, unspecified formulation 5 completed Not Available [facility] 12/04/2023 04:19:10 influenza, unspecified formulation 8 completed Not Available [facility] 12/04/2023 04:19:10 influenza, unspecified formulation 9 completed Not Available [facility] 12/04/2023 04:19:10 influenza, unspecified formulation 1 completed Not Available [facility] 12/04/2023 04:19:10 Past Encounters Encounter ID Performer Location Encounter Start Date Encounter Closed Date Diagnosis/Indication Diagnosis SNOMED-CT Code Diagnosis ICD10 Code Diagnosis Note [id number] MARGARET LindaP-BC, PMHNP-BC [facility] [address] [place] [address] 05/15/2022 06:37:58 05/16/2022 08:31:18 Adult health examination 290339735 Z00.00 Advance care planning 71 1068611 Z71.89 Neck pain 83713858 M54.2 X-ray ordered s/p fall and having continued pain. Pain of ri t shoulder joint [id number] 5930604 M25.511 X-ray ordered s/p fall and having continued pain. Chronic po st-COVID-19 syndrome 2955579264 Z86.16 therapy ordered as [facility] has long haulers. Slowly needs to rebuild strength and endurance. Muscle atrophy 21920785 M62.50 therapy ordered as [facility] has long haulers. Slowly needs to rebuild strength and endurance. Moderate c hronic obstructive pulmonary disease 308380765 J44.9 nebulizer ordered to help with breathing. Orders sent to [place] [facility]. Will be mailed to patient. Multiple complications due to type 2 diabetes mellitus 609152120 E11.8 taking medication s. labs to eval levels. Anemia 975396779 D64.9 labs to eval levels Fatigue 21718292 R53.83 labs to eval levels [id number] Paulette Prieto TOP INVENTORY CONTROL EXECUTIVE-BC, PMHNP-BC [facility] [address] [place] [address] 06/12/2022 06:45:17 06/14/2022 12:47:36 Chronic [id number] syndrome [id number] Z86.16 therapy ordered as Vandana has long haulers. Slowly needs to rebuild strength and endurance which has been complicate d by recent hospitaliz ation. Hematoma o f rectus sheath 961184859 S30.1XXD Rechecking blood counts Chronic ob structive pulmonary disease 78991276 J44.9 Duoneb for COPD. It was not on her discharge list but want this medication continued. Medication was sent through [facility] so it would not cost her anything and run through part B vs D. Atrial fibrillation 4943 6004 I48.91 managed by cardiology . Warfarin levels have changed and no longer on Lovenox. [id number] LILLIANA Linda-, PMHNP-TISAH [facility] [address] [place] [address] 07/10/2022 12:19:02 07/11/2022 17:16:25 Congestive heart failure 00835233 I50.9 Multiple complications due to type 2 diabetes mellitus 014032133 E11.8 Changes to medication s made. Farxiga instead as it provides kidney protection in addtion to DM and heart. Moderate c hronic obstructive pulmonary disease 364236502 J44.9 [place] [address] Renay [facility] [address] [place] [address] 08/07/2022 09:34:32 08/07/2022 15:59:34 Allergic rhinitis 04741392 J30.9 Significan t post nasal drip. Given Flonase and Azelastine to help dry up significan t nasal mucous. Allergic conjunctivitis 851299238 H10.13 Pataday eye drops for eye allergies. Will help with itchy watery eyes. Open wound of nasal cavity 860213219 S01.20XA Counseled on not picking at nose. ABX ointment to area. Altered karen wel function 81997302 R19.4 stool culture to r/o Hemorrhoids 13377461 K64 .9 anusol to help with hemorrhoid s. If no [place] [id number] LILLIANA Linda-BC, PMHNP-BC [facility] [address] [place] [address] 08/28/2022 06:55:06 08/28/2022 14:01:33 Allergic rhinitis 34693338 J30.9 Flonase and Azelastine to help dry up significan t nasal mucous. Allergic conjunctivitis 346036235 H10.13 Pataday eye drops for eye allergies. Open wound of nasal cavity 924574741 S01.20XD Counseled on not picking at nose. ABX ointment to area which is helping. Hemorrhoids 90623463 K64 .9 has been helping. Hyperlipidemia 99156999 E78.5 taking medication s. labs to eval levels. Essential hypertension 77276505 I10 taking medication s. labs to eval levels. Complicati on due to diabetes mellitus 89743133 E11.8 taking medication s. labs to eval levels. Osteoporosis 44700951 M8 1.0 Return back to pill form until Prolia is approved at an amount that is doable. [id number] JANNETH Linda, [facility] [address] [place] [address] 09/25/2022 06:54:25 09/26/2022 20:06:50 Complication due to diabetes mellitus 79586739 E11.8 taking medication s. labs to eval levels. Essential hypertension 35369398 I10 taking medication s. labs to eval levels. Hyperlipidemia 58357543 E78.5 taking medication s. labs to eval levels. 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 Requires diabetic shoes with inserts. Has poor circulatio n with DX of PAD/PVD.I am managing and treating this patient? s diabetes under a [facility] plan of care. This patient requires diabetic shoes and heat-molde d or custom-mol ded inserts to help prevent ulcers and further complicati ons. 84985 JANNETH Linda, [facility] [address] [place] [address] 10/23/2022 06:54:10 10/24/2022 21:23:00 Complication due to diabetes mellitus 57747823 E11.8 A1C is really well at 6.1. Continue Ozempic. Allergic rhinitis 281327 04 J30.9 Fluticason e and Azelastine together. Counseled on how to do and administer to provide therapeuti c benefit. Restless legs 54531561 G 25.81 Increasing Ropinirole to 0.5 mg q HS. Was having some benefits on lower dose but not providing a significan t benefit. 39721 JANNETH Linda, PA[facility] [address] [place] [address] 11/13/2022 06:54:53 11/14/2022 08:46:40 Allergic rhinitis 51678033 J30.9 Fluticason e and Azelastine together. Has been having some improvemen ts. Will see how it goes after BIOINFORMATICS RESEARCH TECHNICIAN evaluates. Restless legs 15874705 G 25.81 Noting improvemen ts but still having increasing episodes. Increased Ropinirole to 1 mg q hS. Choking 296821328 R09.89 Will have BIOINFORMATICS RESEARCH TECHNICIAN eval and tx.BIOINFORMATICS RESEARCH TECHNICIAN to eval. If s/sx do not improve will look at possible ENT and/or GI for evaluation . [address]42[address] [facility] [address] [place] [address] 11/30/2022 17:57:51 12/01/2022 15:44:22 Cough 01820112 R05.9 Expiratory wheezing 9763 007 R06.2 Dyspnea at rest 13137816 7 R06.00 09042 JANNETH Linda, PA[facility] [address] [place] [address] 12/12/2022 06:58:16 12/12/2022 21:22:17 Hypertensive crisis 623574163 I16.9 11036 JANNETH Linda, [facility] [address] [place] [address] 12/20/2022 14:00:18 12/20/2022 19:21:00 Peripheral neuropathy due to type 2 diabetes mellitus 1909418503 107 E11.42 Reviewed lining brusher 's note. Requires diabetic shoes with inserts. Has peripheral neuropathy with callus formation d/t Type II DM. I am managing and treating this patient's diabetes under a [facility] plan of care. The patient requires diabetic shoes and either heat-molde d, custom-mol ded, or prefabrica tomi inserts to help prevent ulcers and worsening conditions along with preventing further complicati ons. Urinary incontinence 165 490790 N39.42 Altered karen wel function 46683013 R19.4 99457 Paulette Goldman [facility], [facility] [address] [place] [address] 01/10/2023 16:44:20 01/11/2023 08:30:55 Urinary incontinence 383257342 N39.42 Altered karen wel function 70877480 R19.4 Applying calmosepti ne to help with protectant . Counseled about bowel training every 2 hours like bladder to see if can decrease accidents. Dysphagia 63597652 R13.1 0 Cough 88457055 R05.9 96293 Paulette Goldman Conner [facility], [facility] [address] [place] [address] 03/05/2023 05:43:13 03/05/2023 18:49:24 Altered bowel function 54032680 R19.4 given the multiple diarrhea BM. Stopping Miralax and Senna. Donepezil can cause some GI upset resulting in diarrhea. Discussed such. Will get off the Miralax and senna. See how she does. Superficia l laceration of head 688965175 S01.91XD No infection noted. Cyst of skin 889420627 L 72.9 Noted on RLE, Lucien evaluated and noted it to be a cyst Osteoarthr itis of multiple joints 438426334 M15.9 pain from OA and fall. APAP to help with pain. Recurrent falls 68335330 2 R29.6 Cough 86668699 R05.9 31847 Paulette Goldman [facility] [address] [place] [address] 04/02/2023 06:42:51 04/02/2023 13:52:57 Complication due to diabetes mellitus 87542674 E11.8 taking medication s. labs to eval levels. Essential hypertension 95049135 I10 taking medication s. labs to eval levels. Hyperlipidemia 51124559 E78.5 taking medication s. labs to eval levels. Vitamin D deficiency 347 83917 E55.9 Screening for osteoporosis 101712867 Z13.820 99301 Pauletet Prieto [facility]-, PMHNP-BC [facility] [address] [place] [address] 04/30/2023 06:46:06 04/30/2023 20:11:07 Vitamin D deficiency 05874940 E55.9 Candidal intertrigo 2661 14141 B37.2 91607 Paulette Prieto [facility], [facility] [address] [place] [address] 05/28/2023 08:40:14 05/28/2023 21:28:16 Long-term current use of bisphosphonates 1866377056 95057 Z79.83 Restless legs 80220274 G 25.81 Doing much better with the 1 mg of Ropinirole . Advance care planning 71 9701957 Z71.89 95242 Paulette Prieto [facility], [facility] [address] [place] [address] 06/25/2023 07:50:25 06/25/2023 18:51:04 Candidiasis of skin 14794172 B37.2 Continued PRN as this provides a benefit often using regularly given the continued rash issues Complicati on due to diabetes mellitus 79309775 E11.8 Recurrent major depression in full remission 83169181 F33.42 Continue medication as this is providing controlled of symptoms. Denies SI/HI. 18093 Paulette Prieto [facility], [facility] [address] [place] [address] 07/17/2023 08:37:29 07/17/2023 18:16:43 Lesion of nose 863914841 J34.89 Candidal intertrigo 2661 27192 B37.2 Health Concerns Section Related Observation LastModified by Organization Mari ls LastModified Time None Recorded Concern Status LastModified by Organization Details LastModified Time None Recorded Advance Directives Directive None Recorded Payers Encounter Date Sequence Insurance Name Policy Number Policy Roth Covered Member ID Roth Member ID Guarantor Name 04/02/2023 1 [place] Kay Winn [id number] Corinne Romanik 04/02/2023 2 [employer] HE[employer] OPTIONS (MEDICARE SUPPLEMENT) Kay Winn [id number] Corinne Romanik 04/30/2023 1 [place] Kay Borrerobolich [id number] Corinne Romanik 04/30/2023 2 [employer] HE[employer] OPTIONS (MEDICARE SUPPLEMENT) Kay Borrerobolich [id number] Corinne Romanik 05/28/2023 1 [place] Kay Borrerobolich [id number] Corinne Romanik 05/28/2023 2 [employer] HE[employer] OPTIONS (MEDICARE SUPPLEMENT) Kay Winn [id number] Corinne Romanik 06/25/2023 1 [place] Kay Borrerobolich [id number] Corinne Romanik 06/25/2023 2 [employer] HE[employer] OPTIONS (MEDICARE SUPPLEMENT) Kay Winn [id number] Corinne Romanik 07/17/2023 1 [place] Kay Borrerobolich [id number] Corinne Romanik 07/17/2023 2 [employer] HE[employer] OPTIONS (MEDICARE SUPPLEMENT) Kay Brombolich [id number] Corinne Romanik Notes Date Note Type Note Provider Name and Address Organization Details Recorded Time 04/02/2023 text/html HLD - Compliant with statin. No side effects.HTN - Compliant with medications. Does not report any MCKENNA, blurry vision, dizziness, CP, SOB, or palpitations.DM - taking medications and A1C has been much better with Ozempic on board. Paulette Prieto, TOP INVENTORY CONTROL EXECUTIVE-BC, PMHNP-BC [address] [place], [address], [place] [facility] 04/02/2023 12:01:26 04/30/2023 text/html Breast Rash - Ju dy reports having a rash under R breast that she has been putting medication on but has not helped. It continues to itch.Vitamin D - noted to low on routine labs. Paulette Prieto TOP INVENTORY CONTROL EXECUTIVE-BC, PMHNP-BC [address] [place], [address], [facility] 04/30/2023 12:46:22 05/28/2023 text/html osteoporosis - taking medications and concerned about where her bones are.reports having some palpable lumps under what she describes as a notch under neck.RLS - doing very well with the medication. MARGARET LindaP-BC, PMHNP-BC [address] [place], [address], [facility] 05/28/2023 17:30:31 06/25/2023 text/html Evan - has intermittent episodes that pop up under breasts and pannus. Powder has been helpingMDD - taking Lexapro and doing very well. Has continued to feel upbeat daily. Denies SI/HI. MARGARET LindaP-BC, PMHNP-BC [address] [place], [address], [facility] 06/25/2023 15:51:44 07/17/2023 text/html Small open sore in nose - bothersome and having soreness. has been difficult not to pick at it. Evan - continues to be problematic for under R breast MARGARET LindaP-BC, PMHNP-BC [address] [place], [address], [facility] 07/17/2023 14:13:21 OBGyn Episode No OBEpisode recorded.
--- OUTSIDE RECORDS SUMMARY | 2024-12-22 11:44 | XMS_ITS | Encounter Summary ---
Author Organization [facility] Address [address] [place] [address] Care Team Providers Care Church Musician Name Role Phone No, Physician Primary Care Provider [phone] Reason for Visit * Reason Onset Date Comments INR results 12/15/2024 Encounter Details Date Type Department Care Team (Late st Contact Info) Description 12/15/2024 Telephone [facility] Cardiology [address] [place] [address] Romel Graves MD [facility] [address] INR results Social History Tobacco Use Types Packs/Day Years [...] week 02/02/2023 How often do you attend [facility] or bahai services? More than 4 times per year 02/02/2023 Do you belong to any clubs o r organizations such as synagogue groups, unions, fraternal or athletic groups, or [...] place to sleep or slept in a usp (including now)? No 02/02/2023 Personal Safety Answer Date Recorded Have you ever been in or are you currently in a harmful physical or emotional relationship or is someone making you feel afraid or unsafe? Denies 04/02/2024 Comments No Sex and Gender Information Value Date Recorded Sex Assigned at Not on file Legal Sex Female 9:08 AM CHARACTER IMPERSONATOR Gender Identity Female 06/25/2019 7:13 AM CDT Sexual Orientation Not on file documented as of this encounter Miscellaneous Notes * Telephone Encounter - Allie Levi RN - 12/15/2024 10:00 AM CHARACTER IMPERSONATOR DK-FYI Spoke with Keily from [place] and she called to report pts INR today is 6.9. One week ago todayit was 3.8 and pt has had no med changes since then. She said they put pills in pts pillbox and shetakes them on her own so they have no way of knowing it pt is taking the correct dose or not. She also noted that pt had a fall a couple of days ago and hit her head-family took pt to ED and called facility to report CT head was negative and they were sending pt back to facility. Keily reports today that the bath aid reported pt has a big knot on her head and multiple other bruises, pt has a really bad headache and she is not acting herself nor feeling well. Advised for pt to report back toED and Keily said that was what we were thinking too and she will call pts family as well. Will send an FYI to providers covering today as well. ACTER IMPERSONATOR * Telephone Encounter - Gabbi Whyte - 12/15/2024 8:52 AM CST Keily from [place] calling to report the patients INR taken today 12/15/2024. INR is 6.9. States that the patient had a fall a couple of days ago and hit her head. Please advise. Thank you. Contact [phone] ACTER IMPERSONATOR documented in this encounter Plan of Treatment Not on file documented as of this encounter Visit Diagnoses Not on filedocumented in this encounter Care Teams Church Musician Relationship Specialty Start Date End Date No, Physician PCP - General 09/12/24 documented as of this encounter
--- OUTSIDE RECORDS SUMMARY | 2024-12-22 11:44 | XMS_ITS | Encounter Summary ---
Author Organization [facility] Address [address] [place] [address] Phone Care Team Providers Care Page Designer Name Role Phone Meredith Aburto ZIPPER SLIDE ATTACHER Primary Care Provi arlette No, Physician Primary Care Provider [phone] Encounter Details Date Type Department Care Team (Late st Contact Info) Description 04/23/2024 Telephone [facility] Endocrinology Metabolism and Lipid [address] [facility] Advanced Medicine 13th [place] [address] [place] [address] Hillary Mary RMA Social History Tobacco Use Types Packs/Day Years Used Date Smoking Tobacco: Former Cigarettes 3 51.1 S tarted: 1976 Smokeless Tobacco: Never Alcohol Use Standard Drinks/Week [...] week 02/02/2023 How often do you attend [facility] or pentecostal services? More than 4 times per year 02/02/2023 Do you belong to any clubs o r organizations such as jew groups, unions, fraternal or athletic groups, or [...] place to sleep or slept in a jail (including now)? No 02/02/2023 Personal Safety Answer Date Recorded Have you ever been in or are you currently in a harmful physical or emotional relationship or is someone making you feel afraid or unsafe? Denies 04/02/2024 Comments No Sex and Gender Information Value Date Recorded Sex Assigned at Not on file Legal Sex Female 9:08 AM PAPER CUP MACHINE OPERATOR Gender Identity Female 06/25/2019 7:13 AM CDT Sexual Orientation Not on file documented as of this encounter Plan of Treatment Not on file documented as of this encounter Visit Diagnoses Not on filedocumented in this encounter Care Teams Page Designer Relationship Specialty Start Date End Date Meredith Aburto NP [address] [place] [address] PCP - General Family Medicine 08/17/23 09/11/24 No, Physician PCP - General 09/12/24 documented as of this encounter
--- OUTSIDE RECORDS SUMMARY | 2024-12-22 11:44 | XMS_ITS | Encounter Summary ---
Author Organization [facility] Address [address] [place] [address] Phone Care Team Providers Care Farm Supervisor Name Role Phone No, Physician Primary Care Provider [phone] Encounter Details Date Type Department Care Team (Late st Contact Info) Description 10/06/2024 Telephone [facility] Endocrinology Metabolism and Lipid [address] [facility] Advanced Medicine 13th [place] [address] [place] [address] Deven Weinberg CMA Social History Tobacco Use Types Packs/Day Years [...] often do you attend chur ch or restoration services? More than 4 times per year 02/02/2023 Do you belong to any clubs o r organizations such as oriental orthodox groups, unions, fraternal or athletic groups, or [...] on file Legal Sex Female 9:08 AM TYPEWRITER MECHANIC Gender Identity Female 06/25/2019 7:13 AM CDT Sexual Orientation Not on file documented as of this encounter Plan of Treatment Not on file documented as of this encounter Visit Diagnoses Not on filedocumented in this encounter Care Teams Farm Supervisor Relationship Specialty Start Date End Date No, Physician PCP - General 09/12/24 documented as of this encounter
--- OUTSIDE RECORDS SUMMARY | 2024-12-22 11:44 | XMS_ITS | Encounter Summary ---
Author Organization [facility] Address [address] [place] [address] Care Team Providers Care Spindle Frame Carver Name Role Phone Meredith Aburto BRAND COORDINATOR Primary Care Provi arlette No, Physician Primary Care Provider [phone] Encounter Details Date Type Department Care Team (Late st Contact Info) Description 05/01/2024 Orders Only [facility] Information Management [address] [place] [address] Scanning, Provider Social History Tobacco Use Types Packs/Day Years [...] any clubs o r organizations such as mormon groups, unions, fraternal or athletic groups, or [...] on file Legal Sex Female 9:08 AM LIPCOAT SPRAYER Gender Identity Female 06/25/2019 7:13 AM CDT Sexual Orientation Not on file documented as of this encounter Plan of Treatment Not on file documented as of this encounter Procedures Procedure Name Priority Date/Time Associated Diagnosis Comments SCAN - LABS 05/01/2024 documented in this encounter Results * SCAN - LABS (05/01/2024) us Provider Scanning Final Result documented in this encounter Visit Diagnoses Not on filedocumented in this encounter Care Teams Spindle Frame Carver Relationship Specialty Start Date End Date Meredith Aburto NP [address] [place] [address] [place] [address] PCP - General Family Medicine 08/17/23 09/11/24 No, Physician PCP - General 09/12/24 documented as of this encounter
--- OUTSIDE RECORDS SUMMARY | 2024-12-22 11:44 | XMS_ITS | Referral Summary ---
Author Organization [facility] Address [address] [place] [address] Care Team Providers Care Per Diem Clerk Name Role Phone No, Physician Primary Care Provider [phone] Encounters Date Type Department Care Team Description 12/22/2024 Telephone [facility] Pulmonology [address] [place] [phone] Jake Turner MD 12/19/2024 Telephone [facility] Endocrinology Metabolism and Lipid [address] 13th [place] [address] [place] [address] Hamida Mayorga CMA Med Management (Pts voicemail full. We do have her Ozempic 1mg 4 boxes) 12/15/2024 Anticoagulation Visit [facility] Cardiology [address] [place] [address] [place] [phone] Allie Levi RN Atrial fibrillation, unspecified type (HCC) (Primary Dx) 12/15/2024 Telephone [facility] Cardiology [address] [place] [address] [address] [place] [phone] Romel Graves MD INR results 12/10/2024 1:30 PM OPERATING ROOM SPECIALIST Office Visit [facility] Cardiology [address] [place] [address] [place] [phone] Romel Graves MD History of mitral valve replacement with mechanical valve (Primary Dx); Chronic anticoagulation; Hypertension associated with diabetes (HCC); Nonrheumatic aortic valve stenosis; Stage 3b chronic kidney disease (HCC); MAC on CPAP 12/08/2024 Anticoagulation Visit [facility] Cardiology [address] [place] [address] [place] [phone] Kristi Torres RN Atrial fibrillation, unspecified type (HCC) (Primary Dx) 12/02/2024 Anticoagulation Visit [facility] Cardiology [address] [place] [address] [place] [phone] Allie Levi RN Atrial fibrillation, unspecified type (HCC) (Primary Dx) 11/27/2024 Orders Only [facility] Cardiology [address] [place] [address] [place] [phone] Romel Graves MD Atrial fibrillation, unspecified type (HCC) (Primary Dx); Sick sinus syndrome (CMS/HCC) (HCC); Pacemaker 11/27/2024 7:00 AM OPERATING ROOM SPECIALIST Ancillary Procedure [facility] Cardiology [address] [place] [address] [place] [phone] Pacemaker (Primary Dx); Atrial fibrillation, unspecified type (HCC); Sick sinus syndrome (CMS/HCC) (HCC) 11/24/2024 Anticoagulation Visit [facility] Cardiology [address] [place] [address] [place] [phone] Allie Levi RN Atrial fibrillation, unspecified type (HCC) (Primary Dx) 11/17/2024 Anticoagulation Visit [facility] Cardiology [address] [place] [address] [place] [phone] Kristi Torres RN Atrial fibrillation, unspecified type (HCC) (Primary Dx) 11/13/2024 Telephone [facility] Cardiology [address] [place] [address] [place] [phone] Romel Graves MD 11/10/2024 Anticoagulation Visit [facility] Cardiology [address] [place] [address] [place] [phone] Kristi Torres RN Atrial fibrillation, unspecified type (HCC) (Primary Dx) 11/03/2024 Anticoagulation Visit [facility] Cardiology [address] [place] [address] [place] [phone] Allie Levi RN Atrial fibrillation, unspecified type (HCC) (Primary Dx) 11/03/2024 9:45 AM OPERATING ROOM SPECIALIST Ancillary Procedure [facility] Cardiology [address] [place] [address] [place] [phone] Pacemaker [Z95.0] (Primary Dx); Atrial fibrillation, unspecified type (HCC); Sick sinus syndrome (CMS/HCC) (HCC) 10/27/2024 Anticoagulation Visit [facility] Cardiology [address] [place] [address] [place] [phone] Ghassan Benavides RN Atrial fibrillation, unspecified type (HCC) (Primary Dx) 10/15/2024 Anticoagulation Visit [facility] Cardiology [address] [place] [address] [place] [phone] Kristi Torres RN Atrial fibrillation, unspecified type (HCC) (Primary Dx) 10/13/2024 Telephone [facility] Cardiology [address] [place] [address] [place] [phone] Romel Graves MD 10/10/2024 7:00 AM OPERATING ROOM SPECIALIST Ancillary Procedure [facility] Cardiology [address] [place] [address] [place] [phone] Pacemaker (Primary Dx); Atrial fibrillation, unspecified type (HCC); Sick sinus syndrome (CMS/HCC) (HCC) 10/06/2024 Telephone [facility] Endocrinology Metabolism and Lipid [address] 13th [place] [address] [place] [phone] Deven Weinberg CMA 10/03/2024 Anticoagulation Visit [facility] Cardiology [address] [place] [address] [place] [phone] Allie Levi RN Atrial fibrillation, unspecified type (HCC) (Primary Dx) 09/24/2024 Orders Only [facility] Cardiology [address] [place] [address] [place] [phone] Romel Graves MD Atrial fibrillation, unspecified type (HCC) (Primary Dx); Sick sinus syndrome (CMS/HCC) (HCC) 09/24/2024 10:45 AM CDT Ancillary Procedure [facility] Cardiology [address] [place] [address] [place] [phone] Pacemaker (Primary Dx); Atrial fibrillation, unspecified type (HCC); Sick sinus syndrome (CMS/HCC) (HCC) 09/22/2024 Anticoagulation Visit [facility] Cardiology [address] [place] [phone] Kristi Torres RN Atrial fibrillation, unspecified type (HCC) (Primary Dx) from Last 3 Months Allergies Active Allergy Reactions Criticality Noted Date [...] nephropathy, with long-term current use of insulin ([facility]) Use to test three times a day 1 kit 06/07/20 22 Active blood glucose diagnostic (glucose blood) stripIndications: Type 2 diabetes mellitus with diabetic nephropathy, with long-term current use of insulin ([facility]) Check blood sugar three ttimes a day or as directed 300 each 3 06/07/20 22 Active lancets miscIndications:T ype 2 diabetes mellitus with diabetic nephropathy, with long-term current use of insulin ([facility]) Use to test 3 times per day [...] nephropathy, with long-term current use of insulin ([facility]) Inject 1 mg under the skin once [...] Take 1 tablet (4mg) Sunday, Sunday, Sunday, Sunday, Saturday. 20 tablet 1 05/27/20 24 Active Active [...] metapneumovirus Assessment & Plan (01/17/2023 4:04 PM OPERATING ROOM SPECIALIST): -chest x-ray was reviewed, seems to be [...] 01/15/2023 Assessment & Plan (01/15/2023 1:29 PM OPERATING ROOM SPECIALIST): -noted under the right breast -ordered topical miconazole Altered bowel function 12/19/2022 Allergic conjunctivitis 08/26/2022 Hemorrhoids 08/26/2022 Depression, major, recurrent 05/25/2022 Assessment & Plan (01/15/2023 1:30 PM OPERATING ROOM SPECIALIST): -resumed Lexapro Assessment & Plan (05/25/2022 5:06 [...] 04/17/2022 Assessment & Plan (01/15/2023 1:29 PM OPERATING ROOM SPECIALIST): -resumed donepezil Assessment & Plan (05/25/2022 5:05 AM CDT): - Continue home Donepezil 5mg qhs Assessment & Plan (05/03/2022 5:17 AM CDT): New Order aricept COVID-19 07/02/2021 Mixed diabetic hyperlipidemi a associated with type 2 diabetes mellitus 04/26/2021 Assessment & Plan (12/21/2021 5:34 AM OPERATING ROOM SPECIALIST): Stable Cont lipitor Goal: TC<200, LDL<100, TG<150 Pulmonary hypertension 04/26/2021 Assessment & Plan (04/10/2024 9:37 AM CDT): Pulmonary hypertension with PASP 62 mmHg. Possible cause is due to TR. She is dry, lasix was hold. Chronic anticoagulation 04/26/2021 Nonrheumatic tricuspid valve regurgitation 04/26 Osteoporosis 11/13/2019 Assessment & Plan (01/15/2023 1:29 PM OPERATING ROOM SPECIALIST): -reports that she has not been taking [...] needed. Assessment & Plan (01/15/2023 1:28 PM OPERATING ROOM SPECIALIST): -ordered hemoglobin A1c, hold Farxiga and semaglutide in the hospital -we will manage with long-acting, pre meal and sliding scale insulin in the hospital -continue to monitor blood sugars, goal inpatient blood sugar is 140-180 Assessment & Plan (05/03/2022 5:16 AM CDT): Chronic Cont glucophage, basaglar, jardiance, ozempic Goal: Hgba1c<6.5 Assessment & Plan (12/21/2021 5:40 AM OPERATING ROOM SPECIALIST): Chronic Cont glucophage, basaglar, jardiance, ozempic Goal: Hgba1c<6.5 Assessment & Plan (02/22/2021 2:56 PM CDT): Stable Cont metformin COPD exacerbation 10/18/2019 Assessment & Plan (01/17/2023 4:08 PM OPERATING ROOM SPECIALIST): -with severe exacerbation -likely from viral infection -diffuse wheezing noted bilaterally on arrival, improving. -started on steroids, inhaler therapy, s/p scheduled DuoNebs. Transition to PO steroid taper Assessment & Plan (10/18/2019 12:03 PM OPERATING ROOM SPECIALIST): Give germán and wes here in clinic Order CXR Order etienne casey pack Chronic kidney disease (CKD), stage III (moderat e) 11/08/2015 Overview (05/06/2019): Overview: Based on GFR's Assessment & Plan (01/15/2023 1:30 PM OPERATING ROOM SPECIALIST): -renal function is at baseline, avoid nephrotoxic agents, monitor urine output Atrial fibrillation ([facility]) 04/11/2014 Overview (03/01/2017): ATRIAL FIBRILLATION Assessment & [...] Warfarin Assessment & Plan (01/17/2023 4:06 PM OPERATING ROOM SPECIALIST): -resumed Coreg and Coumadin. Patient is status post pacemaker insertion. INR 3.3 01/14. - INR supratherapeutic at 8.4 > 7.8. Verified with facility that they can draw INR 01/18 and 01/22. Dr. Phipps (patient security consultant) monitors outpatient for adjustment. Assessment & Plan (05/25/2022 4:55 AM CDT): - S/p mechanical mitral valve - Pacemaker (Medtronic Adapta) placed on 10/25/2015. Permanent afib 100% V paced. Pacemaker dependent VVI to 30 bpm DOGGER. - INR goal 2.5-3.[address] Loc Mechanical mitral valve - Was getting bridge with lovenox 80 mg q12 for low INR SALES INSPECTOR with Warfarin - On warfarin and lovenox [...] stabilizes. Assessment & Plan (01/16/2023 11:14 AM OPERATING ROOM SPECIALIST): -resumed Coreg and losartan. Patient persistent hypertensive. [...] [facility] office follows tj. He is her security consultant. On warfarin. 11/05/2014 Assessment & Plan (04/10/2024 [...] function Assessment & Plan (01/17/2023 4:09 PM OPERATING ROOM SPECIALIST): - goal INR of 2.5-3.5, on Coumadin - INR supratherapeutic at 8.4 > 7.8. Verified with facility that they can draw INR 01/18 and 01/22. Dr. Phipps (patient security consultant) monitors outpatient for adjustment. - Holding coumadin, resume per outpatient cardiology and INR Resolved Problems Problem Noted Date Diagnosed Date Resolved Date Acute on chronic congestive heart failure, unspecified heart failure type 01/30/2023 3 Shortness of breath 01/14/2023 01/15/20 23 Supratherapeutic [...] monitor Hematoma of rectus sheath, initial encounter 01/15/2023 Pure hypercholesterolemia 05/03/2022 Assessment & Plan (05/03/2022 5:19 AM CDT): Chronic Cont lipitor Goal: TC<200, LDL<100, TG<150 H/O: CVA (cerebrovascular accident) 04/19/2022 01/15/2023 Post-COVID chronic fatigue 04/17/2022 0 01/15/2023 Alzheimer's disease, unspecified 04/17/2022 01/15/2023 Local reaction to bee sting 02/08/2022 01/15/2023 DDD (degenerative disc disease), cervical 12/12/2021 01/15/2023 Assessment & Plan (12/21/2021 5:42 AM OPERATING ROOM SPECIALIST): Worsening pain Use flexeril PRN Ear discomfort, left 06/15/2021 021 Neck pain 05/04/2021 01/15/2023 Assessment & Plan (12/21/2021 5:42 AM OPERATING ROOM SPECIALIST): Worsening pain Use flexeril PRN Assessment & [...] w ith chronic systolic congestive heart failure ([facility]) 02/22/2021 01/15/2023 Assessment & Plan (12/21/2021 5:35 AM OPERATING ROOM SPECIALIST): Stable ruslan Salinas Goal: SBP<140, DP<90 Assessment & Plan (05/11/2021 4:16 AM CDT): Stable ruslan Salinas Assessment & Plan (02/22/2021 2:52 PM CDT): Stable ruslan Salinas Right leg pain 11/22/2020 06/30/2021 Assessment & Plan (12/06/2020 4:35 AM OPERATING ROOM SPECIALIST): Was likely secondary to cellulitis Is better Assessment & Plan (11/30/2020 5:22 AM OPERATING ROOM SPECIALIST): New Order STAT venous doppler If negative [...] 11/13/2019 01/15/2023 Sepsis with cutaneous manife stations ([facility]) 11/13/2019 01/15/2023 Type 2 diabetes mellitus not at goal ([facility]) 11/13/2019 01/15/2023 Assessment & Plan (02/14/2020 12:37 [...] 06/30/2021 Assessment & Plan (11/13/2019 10:25 AM OPERATING ROOM SPECIALIST): Recently discharged from hospital for pneumonia and [...] 06/30/2021 Assessment & Plan (10/29/2019 1:33 PM OPERATING ROOM SPECIALIST): D/w pediatric care coordinator and hospitalist and sent for direct admission [...] dermatitis 03/09/2017 01/15/2023 CHF (congestive heart failure) ([facility]) 02/22/2017 03/21/2023 Assessment & Plan (01/17/2023 4:07 PM OPERATING ROOM SPECIALIST): -echocardiogram from 05/25/2022 showed EF of 54% -currently there is no evidence of fluid overload on exam, proBNP is actually better than the previous admission -resumed Lasix and Aldactone -goal-directed medical therapy as tolerated Assessment & Plan (05/25/2022 5:01 AM CDT): - 04/10/22 2D echo at [facility] - EF 50%, mild aortic stenosis, mechanical [...] 01/15/2023 Assessment & Plan (12/21/2021 5:41 AM OPERATING ROOM SPECIALIST): Stable Cont allopurinol Assessment & Plan (02/22/2021 [...] 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 Not needing albuterol. Patient has moderate COPD. She is clinically stable. I will continue her on Symbicort 160/4.5 b.i.d., p.r.n. albuterol and Atrovent nebs, and p.r.n. albuterol. Had learning developer has also added incruse once a day which she will continue. I will order PFT Assessment & Plan (05/25/2022 3:45 AM CDT): - Not needing albuterol as outpatient per pulmonology note - Trellegy Ellipta 1 puff daily History of CA (myocardial infarction) 04/21/2014 01/15/2023 Overview (05/06/2019): Overview: [...] CDT): - Follows with endo clinic at [facility] (Home reg ozempic, Jardiance 10, metformin [...] Ozempic Assessment & Plan (12/10/2018 2:06 PM OPERATING ROOM SPECIALIST): I called her to assess response to her new med, ozempic. Took first correct dose two days ago, did not feel great yesterday, but feels well today. Stopped januvia as directed. Will take next ozempic dose in 5 days and let us know response. Ra Semenkovich Benign neoplasm of large intestine 04/11/2014 01/15/2023 [...] Cardiomyopathy 03/19/2013 01/15/2023 Chronic systolic heart failure ([facility]/HCC) 03/19/2013 01/15/2023 Mixed urge and stress incontinence 09/09/2012 01/15/2023 Dry eye syndrome 03/04/2012 01/15/2023 Overview (02/08/2022): Not bad as of 11/05/2014 not compliant with drops always. History of colonic polyps 04/04/2011 Overview (05/06/2019): Overview: Colonoscopy Removed 8 polyps, all benign. 10/23/16 tubular adenoma x 4 Complicated by GI bleed hospital stay 10/27/16 - 11/04/16, [facility] Asystole ([facility]) 02/09/2011 1 Persistent atrial fibrillation 02/09/2011 01/15/2023 [...] asthma w ith status asthmaticus 05/16/2005 01/15/2023 Immunizations Name Administration Dates Next Due Influenza, [...] 03/17/2013,07/20/1999,06/26/1999 Tdap 09/04/2011 Tetanus toxoid, adsorbed 03/17/2013 Social History Tobacco Use Types Packs/Day Years [...] week 02/02/2023 How often do you attend [facility] or restorationist services? More than 4 times per year 02/02/2023 Do you belong to any clubs o r organizations such as amish groups, unions, fraternal or athletic groups, or [...] place to sleep or slept in a assisted (including now)? No 02/02/2023 Personal Safety Answer Date Recorded Have you ever been in or are you currently in a harmful physical or emotional relationship or is someone making you feel afraid or unsafe? Denies 04/02/2024 Comments No Sex and Gender Information Value Date Recorded Sex Assigned at Not on file Legal Sex Female 9:08 AM OPERATING ROOM SPECIALIST Gender Identity Female 06/25/2019 7:13 AM CDT Sexual Orientation Not on file Last Filed Vital Signs Vital Sign Reading Time Taken Comments Blood Pressure 128/76 12/10/2024 1:25 PM OPERATING ROOM SPECIALIST Pulse 91 12/10/2024 1:25 PM OPERATING ROOM SPECIALIST Temperature 36.2 ??C (97.1 ??F) 09/12/2024 11:39 AM C DT Respiratory Rate 18 04/10/2024 8:25 AM CDT Oxygen Saturation 99% 12/10/2024 1:25 PM OPERATING ROOM SPECIALIST Inhaled Oxygen Concentration - - Weight 85.7 kg (189 lb) 12/10/2024 1:25 PM OPERATING ROOM SPECIALIST Height 157.5 cm (5' 2 ) 12/10/2024 1:25 PM OPERATING ROOM SPECIALIST Body Mass Index 34.57 12/10/2024 1:25 PM OPERATING ROOM SPECIALIST Plan of Treatment Not on file Medical Devices Implanted Type Area Medical Technologist Hematology Device Identifier Shelf Expiration Date Model / Serial / Lot CashEdge Coil Embolization Tornado Microcoil [place] Od3-2mm .018 In Catheter [id number] - [id number] Implanted:Qty: 1 on 05/24/[address] [facility] [employer] 03/13/2027 [id number] / / [id number] [employer] Coil Embolization [place]orn[place] Microcoil [place] Od3-2mm .018 In Catheter [id number] - [id number] Implanted:Qty: 1 on 05/24/[address] [facility] [employer] 03/13/2027 [id number] / / [id number] [employer] Coil Embolization [place]ornado Microcoil [place] Od3-2mm .018 In Catheter [id number] - [id number] Implanted:Qty: 1 on 05/24/[address] [facility] [employer] 03/13/2027 [id number] / / [id number] [employer] Coil Embolization [employer] Microcoil [place] Od3-2mm .018 In Catheter [id number] - [id number] Implanted:Qty: 1 on 05/24/[address] [facility] [employer] 03/13/2027 [id number] / / [id number] [employer] Coil Embolization Tornado Microcoil [place] Od3-2mm .018 In Catheter [id number] - [id number] Implanted:Qty: 1 on 05/24/[address] [facility] [employer] 03/13/2027 [id number] / / [id number] Angio-Seal Vip 6fr Closere Device [id number] - [id number] Implanted:Qty: 1 on 05/24/[address] [facility] [employer] 02/23/2023 [id number] / / [id number] Procedures Procedure Name Priority Date/Time Associated Diagnosis Comments PROTIME-INR Routine 12/15/2024 ELECTROCARDIOGRAM REPORT Routine 025 3:54 PM OPERATING ROOM SPECIALIST History of mitral valve replacement with mechanical valve PROTIME-INR Routine 12/08/2024 PROTIME-INR Routine 12/01/2024 DEVICE CHECK - REMOTE Routine 11/27/2024 4:23 PM OPERATING ROOM SPECIALIST Atrial fibrillation, unspecified type (HCC) Sick sinus syndrome (CMS/HCC) (HCC) PROTIME-INR Routine 11/24/2024 PROTIME-INR Routine 11/16/2024 DEVICE CHECK - REMOTE Routine 11/13/2024 12:27 PM OPERATING ROOM SPECIALIST Atrial fibrillation, unspecified type (HCC) Sick sinus syndrome (CMS/HCC) (HCC) PROTIME-INR Routine 11/10/2024 PROTIME-INR Routine 11/03/2024 PROTIME-INR Routine 10/21/2024 PROTIME-INR Routine 10/15/2024 DEVICE CHECK - REMOTE Routine 10/10/2024 3:35 PM OPERATING ROOM SPECIALIST Atrial fibrillation, unspecified type (HCC) Sick sinus [...] 6.90(A) 0.90 - 1.10 EXTERNAL LAB Blood Historical Provider LAB BLOOD ORDERABLES Kami l Result EXTERNAL LAB * Electrocardiogram Report (12/10/2024 3:54 PM OPERATING ROOM SPECIALIST) Romel Graves MD ECG ORDERABLES Final Result * (ABNORMAL) Protime-INR (12/08/2024) INR 3.80(A) 0.90 - 1.10 EXTERNAL LAB Blood Historical Provider MD LAB BLOOD ORDERABLES Kami l Result Performing Organization Address City/[facility]/ZIP Co de Phone Number EXTERNAL LAB * (ABNORMAL) Protime-INR (12/01/2024) INR 3.30(A) 0.90 - 1.10 EXTERNAL LAB Blood Result [facility] Historical Provider MD LAB BLOOD ORDERABLES Kami l Result Performing Organization Address [facility] Co de Phone Number EXTERNAL LAB * DEVICE CHECK - REMOTE (11/27/2024 4:23 PM OPERATING ROOM SPECIALIST) Anatomical Region Laterality Modality Other Narrative 12/02/2024 7:53 AM OPERATING ROOM SPECIALIST Medtronic Adapta Single Pacemaker. Dx; SSS, Afib. DOI-10/25/2015-elsewhere. [facility] remote monitoring. VVIR Pacemaker Remote to assess battery status. Transmission attached. Battery status: ??2.61 V, < 1 month remaining battery life to PAUL. Stable lead impedances, pacing and sensing thresholds. Presenting rhythm: ??Vpaced. DOGGER-99.8 %. No Ventricular high rate episodes detected. Medications: ??Carvedilol, Warfarin, Entresto See scanned report. Office pacemaker follow up: ??Pending generator change. [facility] remote f/u 12/24/2024. Ailyn Shay RN Result [facility] Romel Graves MD CV CARDIAC SERVICES PROCEDURES F inal Result * (ABNORMAL) Protime-INR (11/24/2024) INR 4.20(A) 0.90 - 1.10 EXTERNAL LAB Blood Result [facility] Historical Provider MD LAB BLOOD ORDERABLES Kami l Result Performing Organization Address [facility] Co de Phone Number EXTERNAL LAB * (ABNORMAL) Protime-INR (11/16/2024) INR 3.70(A) 0.90 - 1.10 EXTERNAL LAB Blood Historical Provider MD LAB BLOOD ORDERABLES Kami l Result EXTERNAL LAB * DEVICE CHECK - REMOTE (11/13/2024 12:27 PM OPERATING ROOM SPECIALIST) Anatomical Region Laterality Modality Other Narrative 11/13/2024 12:59 PM OPERATING ROOM SPECIALIST Medtronic Adapta Single Pacemaker. Dx; SSS, Afib. DOI-10/25/2015-elsewhere. [facility] remote monitoring. Routine VVIR Pacemaker Remote to assess battery status. Transmission attached. Battery status: ??2.63 V, < 1 month remaining battery life to PAUL. Stable lead impedances, pacing and sensing thresholds. Presenting rhythm: ??Vpaced. DOGGER-99.8 %. No AT/AF episodes noted. No Ventricular high rate episodes detected. Medications: ??Carvedilol, Warfarin, Entresto See scanned report. Office pacemaker follow up: ??Pending generator change. [facility] remote f/u 11/27/2024. Ailyn Shay, RN Romel Graves MD CV CARDIAC SERVICES PROCEDURES F inal Result * (ABNORMAL) Protime-INR (11/10/2024) INR 4.90(A) 0.90 - 1.10 EXTERNAL LAB Blood Historical Provider MD LAB BLOOD ORDERABLES Kami l Result Performing Organization Address City/[facility]/ZIP Co de Phone Number EXTERNAL LAB * (ABNORMAL) Protime-INR (11/03/2024) INR 3.40(A) 0.90 - 1.10 EXTERNAL LAB Blood Historical Provider MD LAB BLOOD ORDERABLES Kami l Result EXTERNAL LAB * (ABNORMAL) Protime-INR (10/21/2024) INR 3.00(A) 0.90 - 1.10 EXTERNAL LAB Blood Result [facility] Historical Provider MD LAB BLOOD ORDERABLES Kami l Result EXTERNAL LAB * (ABNORMAL) Protime-INR (10/15/2024) INR 2.20(A) 0.90 - 1.10 EXTERNAL LAB Blood Result [facility] Historical Provider MD LAB BLOOD ORDERABLES Kami l Result Performing Organization Address [facility] Co de Phone Number EXTERNAL LAB * DEVICE CHECK - REMOTE (10/10/2024 3:35 PM OPERATING ROOM SPECIALIST) Anatomical Region Laterality Modality Other Narrative 10/13/2024 8:21 AM OPERATING ROOM SPECIALIST Med[employer]onic Adapta Single Pacemaker. Dx; SSS, Afib. DOI-10/25/2015-elsewhere. [facility] remote monitoring. VVIR Pacemaker Remote to assess battery status. Transmission attached. Battery status: ??2.63 V, < 1 month remaining battery life to PAUL. Stable lead impedances, pacing and sensing thresholds. Presenting rhythm: ??Vpaced. DOGGER-99.8 %. No AT/AF episodes noted. No Ventricular high rate episodes detected. Medications: ??Carvedilol, Warfarin, Entresto See scanned report. Office pacemaker follow up: ??Pending generator change. [facility] remote f/u 10/29/2024. Ailyn Shay, CAROL ANN Result [facility] Romel Graves MD CV CARDIAC SERVICES PROCEDURES F inal Result * (ABNORMAL) Protime-INR (10/03/2024) INR 1.70(A) 0.90 - 1.10 EXTERNAL LAB Blood Result [facility] Historical Provider MD LAB BLOOD ORDERABLES Kami [...] impedances, pacing and sensing thresholds. Presenting rhythm: ??DOGGER DOGGER-99.8 % No AT/AF episodes noted. No Ventricular high rate episodes detected. Medications: ??Carvedilol 3.125 mg, warfarin, Entresto See scanned report. Office pacemaker follow up: ??Pending generator change [facility] remote f/u 10/08/24. Sunny Braun, RN Romel Graves MD CV CARDIAC SERVICES PROCEDURES [...] GOSS LAB BLOOD ORDERABL ES Final Result [facility] Department of Laboratories [place], [place] [id number] * POCT lipid panel (08/17/2023 3:06 PM [...] Creatinine, ur 100 20 - 275 mg/dL [facility] [place] Microalbumin, ur 52.9 See Note: mg/dL [facility] [place] Comment: Reference Range: Reference Range Not established Verified by repeat analysis. Microalbumin/creat ratio 529(H) <30 mcg/mg creat [facility] [place] Comment: The ADA defines [...] Performing Organization Information: ?Site ID: [id number] ?Name: [employer] ?Address: [address] [place] [address] [place] [id number] ?Director: Hermelindo Arce D.O. 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
--- OUTSIDE RECORDS SUMMARY | 2024-12-22 11:44 | XMS_ITS | Clinical Summary ---
Author Organization [facility] Address [facility] [address] [place] [address] Care Team Providers Care Scrap Crusher Name Role Phone Meredith Aburto RETORT OR CONDENSER PRESS OPERATOR Primary Care Provider [phone] Allergies Active Allergy Reactions Criticality Noted Date Comments Codeine Nausea Only 12/15/2024 Medications albuterol sulfate HFA 108 (90 Base) MCG/ACT inhaler Inhale 1 puff into the lungs every 4 (four) hours as needed for Shortness of breath or Wheezing. Active escitalopram (LEXAPRO) 10 MG tablet Take 1 tablet (10 mg total) by mouth daily. Active FARXIGA 10 MG tablet Take 1 tablet (10 mg total) by mouth daily. Active atorvastatin (LIPITOR) 10 MG tablet Take 1 tablet (10 mg total) by mouth daily. Active carvedilol (COREG) 3.125 MG tablet Take 1 tablet (3.125 mg total) by mouth 2 (two) times daily. Active furosemide (LASIX) 40 MG tablet Take 1 tablet (40 mg total) by mouth daily. Active spironolacton e (ALDACTONE) 25 MG tablet Take 1 tablet (25 mg total) by mouth daily. Active azelastine (ASTELIN) 0.1 % nasal spray 2 sprays by Nasal route 2 (two) times daily. Active donepezil (ARICEPT) 5 MG Tab Take 1 tablet (5 mg total) by mouth nightly at bedtime. Active GEMTESA 75 MG tablet Take 1 tablet (75 mg total) by mouth nightly. 01/09/2 025 Active SEMAGLUTIDE, 1 MG/DOSE, SC Inject 1 mg into the skin once a week. Mondays Active diclofenac sodium (VOLTAREN) 1 % gel Apply 2 g topically nightly as needed (knee pain). Active Senna (SENOKOT) 8.6 MG tablet Take 1 tablet (8.6 mg total) by mouth nightly. Active fluticasone propionate (FLONASE) 50 MCG/ACT nasal spray 1 spray by Each Nostril route 2 (two) times a day. Active budesonide-gl ycopyrrolate- formoterol (BREZTRI AEROSPHERE) 160-9-4.8 MCG/ACT inhaler Inhale 2 puffs into the lungs 2 (two) times daily. Active sacubitril-va lsartan (ENTRESTO) 24-26 MG tablet Take 1 tablet by mouth 2 (two) times daily. Active acetaminophen (TYLENOL) 500 MG tablet Take 1 tablet (500 mg total) by mouth every 6 (six) hours as needed for Pain. Active polyethylene glycol (GLYCOLAX) packet Take 240 mLs (17 g total) by mouth daily as needed for Constipation. Dissolve powder in 240 mL water Active MYRBETRIQ 25 MG 24 hr tablet Take 1 tablet (25 mg total) by mouth daily. 025 Active warfarin (COUMADIN) 2 MG tablet Take 1-2 tablets (2-4 mg total) by mouth see administration instructions. 4 mg Sunday, Sunday and Sunday, 2 mg on , , Sat and Sun 40 tablet 025 Active ferrous sulfate EC 324 (65 Fe) MG tablet Take 1 tablet (324 mg total) by mouth daily with breakfast. 30 tablet 2 025 Active HYDROcodone-a cetaminophen (NORCO) 5-325 MG tabletIndicat ions:Acute Pain < 7 Day Supply Take 1 tablet by mouth every 6 (six) hours as needed for Pain. Indications: Acute Pain < 7 Day Supply 15 tablet 025 Active warfarin (COUMADIN) 2 MG tablet Take 1-2 tablets (2-4 mg total) by mouth see administration instructions. 2 mg Sunday and ; 4 mg all other days of the week 2024 Discontinued warfarin (COUMADIN) 4 MG tablet Take 1 tablet (4 mg total) by mouth see administration instructions. 024 2024 Discontinued(E rror) Active Problems Problem Noted Date Diagnosed Date Supratherapeutic INR 12/15/2024 Encounters Date Type Department Care Team Description 12/15/2024 11:05 AM AUTOMATIC DEVELOPER - 12/19/2024 3:41 PM [facility] Hospital Encounter [facility] [place] [address] Swapna Celis MD Jumean, Khaled, MD Tran, Jeff Kiser MD Headache Discharge Disposition: Home with Home Health Care 12/15/2024 Travel from Last 3 Months Family History Medical History Relation Comments Heart Disease Mother Relation Status Comments Mother Social History Tobacco Use Types Packs/Day Years Used Date Smoking Tobacco: Former Cigarettes Smokeless Tobacco: Never Tobacco Cessation:Counseling Given: Not Answered Alcohol Use Standard Drinks/Week Comments Yes 0 (1 standard drink = 0.6 oz pur e alcohol) once a month [facility] Utilities Answer Date Recorded In the past 12 months has [employer], gas, oil, or water [employer] threatened to shut off services in your home? No 12/15/2024 Humiliation, Afraid, Rape, and Kick questionnair e Answer Date Recorded Within the last year, have y ou been afraid of your partner or ex-partner? No 12/15/2024 Within the last year, have y ou been humiliated or emotionally abused in other ways by your partner or ex-partner? No Within the last year, have y ou been kicked, hit, slapped, or otherwise physically hurt by your partner or ex-partner? No 12/15/2024 Within the last year, have y ou been raped or forced to have any kind of sexual activity by your partner or ex-partner? No 12/15/2024 Overall Financial Resource Strain (CARDIA) Answe r Date Recorded How hard is it for you to pa y for the very basics like food, housing, medical care, and heating? Not hard at all 12/15/2024 Hunger Vital Sign Answer Date Recorded Within the past 12 months, y ou worried that your food would run out before you got the money to buy more. Never true 12/15/19 Within the past 12 months, t he food you bought just didn't last and you didn't have money to get more. Never true 12/15/2024 PRAPARE - Transportation Answer Date Re corded In the past 12 months, has l ack of transportation kept you from medical appointments or from getting medications? No 11/27 In the past 12 months, has l ack of transportation kept you from meetings, work, or from getting things needed for daily living? No 12/15/2024 Housing Stability Vital Sign Answer Willem e Recorded In the last 12 months, was t here a time when you were not able to pay the mortgage or rent on time? No 12/15/2024 In the past 12 months, how m any times have you moved where you were living? 0 12/15/2024 At any time in the past 12 m [facility] were you homeless or living in a ch[facility] (including now)? No 12/15/2024 Comments Unknown Sex and Gender Information Value Date Recorded Sex Assigned at Female 12/15/2024 11:06 AM AUTOMATIC DEVELOPER Legal Sex Female 11:03 AM AUTOMATIC DEVELOPER Gender Identity Not on file Sexual Orientation Not on file Last Filed Vital Signs Vital Sign Reading Time Taken Comments Blood Pressure 129/54 12/19/2024 7:25 AM AUTOMATIC DEVELOPER Pulse 63 12/19/2024 7:25 AM AUTOMATIC DEVELOPER Temperature 37.5 ??C (99.5 ??F) 12/19/2024 7:25 AM CS T Respiratory Rate 19 12/19/2024 7:25 AM AUTOMATIC DEVELOPER Oxygen Saturation 97% 12/19/2024 8:00 AM AUTOMATIC DEVELOPER Inhaled Oxygen Concentration - - Weight 89.6 kg (197 lb 8.5 oz) 12/19/2024 4:36 A M AUTOMATIC DEVELOPER Height 165.1 cm (5' 5 ) 12/15/2024 11:12 AM AUTOMATIC DEVELOPER Body Mass Index 32.87 12/15/2024 11:12 AM AUTOMATIC DEVELOPER Plan of Treatment Health Maintenance Due Date Last Done Comments Annual Medicare Wellness Visit 2008 Dexa Scan (General) 2008 Influenza Adult (#1) 2024 10/05/2021, 09/14/2020, 09/02/2019, Additional history exists DTaP, Tdap and Td Vaccines (8 - Td or Tdap) 02/16/2034 02/17/2024, 03/04/2023, 05/24/2022, Additional history exists Pneumococcal Vaccine: 65+ Years Completed 02/08/2018, 06/24/2015, 09/04/2011, Additional history exists RSV Immunization or 60+ Years Completed 10/19/2023 Zoster Vaccines Completed 07/02/2024, 05/02/2024 COVID-19 Vaccine Completed 10/22/2024, 05/2024, 04/19/2023, Additional history exists Meningococcal B Vaccine Aged Out No l onger eligible based on patient's age to complete this topic Meningococcal Vaccine Aged Out No marge ana paula eligible based on patient's age to complete this topic RSV Immunizations Under 20 Months Aged Out No longer eligible based on patient's age to complete this topic Goals Goal Patient Goal Type Associated Problems Recent Progress Patient-Stated? Author Monitor - able to maintain pain control Lifestyle Spencer Mckenzie RN Procedures Procedure Name Priority Date/Time Associated Diagnosis Comments POCT GLUCOSE - HALL DOCKED DEVICE Routine 12/19/2024 10:29 AM AUTOMATIC DEVELOPER PROTHROMBIN TIME, VENOUS Routine 12/19/2024 9:17 AM AUTOMATIC DEVELOPER HEPARIN, ANTI XA, UFH TIMED 12/19/2024 9:17 AM AUTOMATIC DEVELOPER POCT GLUCOSE - HALL DOCKED DEVICE Routine 12/19/2024 6:10 AM AUTOMATIC DEVELOPER HEPARIN, ANTI XA, UFH TIMED 12/19/2024 5:55 AM AUTOMATIC DEVELOPER FOLIC ACID SERUM Routine 12/19/2024 5:55 AM AUTOMATIC DEVELOPER VITAMIN B-12 Routine 12/19/2024 5:55 AM AUTOMATIC DEVELOPER IRON SAT PANEL (IRON,IBC,%SAT) Routine 12/19/2024 5:55 AM AUTOMATIC DEVELOPER FERRITIN Routine 12/19/2024 5:55 AM AUTOMATIC DEVELOPER RETICULOCYTE CT, AUTO Routine 12/19/2024 5:55 AM AUTOMATIC DEVELOPER CBC W/DIFF AUTOMATED Routine 12/19/2024 5:55 AM AUTOMATIC DEVELOPER BASIC METABOLIC PANEL Routine 12/19/2024 5:55 AM AUTOMATIC DEVELOPER MAGNESIUM Routine 12/19/2024 5:55 AM AUTOMATIC DEVELOPER HEPARIN, ANTI XA, UFH TIMED 12/18/2024 10:17 PM AUTOMATIC DEVELOPER POCT GLUCOSE - HALL DOCKED DEVICE Routine 12/18/2024 8:21 PM AUTOMATIC DEVELOPER HEPARIN, ANTI XA, UFH TIMED 12/18/2024 7:22 PM AUTOMATIC DEVELOPER POCT GLUCOSE - HALL DOCKED DEVICE Routine 12/18/2024 3:23 PM AUTOMATIC DEVELOPER CBC W/DIFF AUTOMATED Routine 12/18/2024 3:12 PM AUTOMATIC DEVELOPER HEPARIN, ANTI XA, UFH TIMED 12/18/2024 11:30 AM AUTOMATIC DEVELOPER POCT GLUCOSE - HALL DOCKED DEVICE Routine 12/18/2024 10:46 AM AUTOMATIC DEVELOPER PROTHROMBIN TIME, VENOUS STAT 12/18/2024 9:19 AM AUTOMATIC DEVELOPER PARTIAL THROMBOPLASTIN TIME,PTT STAT 12/18/2024 9:19 AM AUTOMATIC DEVELOPER POCT GLUCOSE - HALL DOCKED DEVICE Routine 12/18/2024 6:17 AM AUTOMATIC DEVELOPER MAGNESIUM Routine 12/18/2024 5:00 AM AUTOMATIC DEVELOPER BASIC METABOLIC PANEL Routine 12/18/2024 5:00 AM AUTOMATIC DEVELOPER CBC W/DIFF AUTOMATED Routine 12/18/2024 5:00 AM AUTOMATIC DEVELOPER PROTHROMBIN TIME, VENOUS Routine 12/18/2024 5:00 AM AUTOMATIC DEVELOPER POCT GLUCOSE - HALL DOCKED DEVICE Routine 12/17/2024 8:22 PM AUTOMATIC DEVELOPER POCT GLUCOSE - HALL DOCKED DEVICE Routine 12/17/2024 3:[address] SOFT TISSUE NECK WO CON NAYAN 12/17/2024 2:[address] HEAD WO CON NAYAN 12/17/2024 2:51 PM AUTOMATIC DEVELOPER POCT GLUCOSE - HALL DOCKED DEVICE Routine 12/17/2024 11:00 AM AUTOMATIC DEVELOPER MAGNESIUM Routine 12/17/2024 7:09 AM AUTOMATIC DEVELOPER BASIC METABOLIC PANEL Routine 12/17/2024 7:09 AM AUTOMATIC DEVELOPER CBC W/DIFF AUTOMATED Routine 12/17/2024 7:09 AM AUTOMATIC DEVELOPER PROTHROMBIN TIME, VENOUS Routine 12/17/2024 7:09 AM AUTOMATIC DEVELOPER POCT GLUCOSE - HALL DOCKED DEVICE Routine 12/16/2024 7:30 PM AUTOMATIC DEVELOPER POCT GLUCOSE - HALL DOCKED DEVICE Routine 12/16/2024 4:05 PM AUTOMATIC DEVELOPER POCT GLUCOSE - HALL DOCKED DEVICE Routine 12/16/2024 11:03 AM AUTOMATIC DEVELOPER PROTHROMBIN TIME, VENOUS Routine 12/16/2024 7:04 AM AUTOMATIC DEVELOPER MAGNESIUM Routine 12/16/2024 7:04 AM AUTOMATIC DEVELOPER COMPREHENSIVE METABOLIC PANEL Routine 12/16/2024 7:04 AM AUTOMATIC DEVELOPER CBC W/DIFF AUTOMATED Routine 12/16/2024 7:04 AM AUTOMATIC DEVELOPER POCT GLUCOSE - HALL DOCKED DEVICE Routine 12/16/2024 6:04 AM AUTOMATIC DEVELOPER HEMOGLOBIN AND HEMATOCRIT STAT 12/16/2024 12:46 AM AUTOMATIC DEVELOPER POCT GLUCOSE - HALL DOCKED DEVICE Routine 12/15/2024 8:06 PM AUTOMATIC DEVELOPER HEMOGLOBIN AND HEMATOCRIT STAT 12/15/2024 5:36 PM AUTOMATIC DEVELOPER XR PELVIS MIN 3V Today 12/15/2024 3:57 PM AUTOMATIC DEVELOPER POCT GLUCOSE - HALL DOCKED DEVICE Routine 12/15/2024 2:51 PM AUTOMATIC DEVELOPER XR HIP PHYLLIS 2V+PELVIS STAT 12/15/2024 12:[address] CERV SPINE WO CON STAT 12/15/2024 12:[address] HEAD WO CON STAT 12/15/2024 12:11 PM AUTOMATIC DEVELOPER BASIC METABOLIC PANEL STAT 12/15/2024 12:00 PM AUTOMATIC DEVELOPER PARTIAL THROMBOPLASTIN TIME,PTT STAT 12/15/2024 12:00 PM AUTOMATIC DEVELOPER PROTHROMBIN TIME, VENOUS STAT 12/15/2024 12:00 PM AUTOMATIC DEVELOPER CBC W/DIFF AUTOMATED STAT 12/15/2024 12:00 PM AUTOMATIC DEVELOPER from Last 3 Months Results * (ABNORMAL) POCT glucose (12/19/2024 10:29 AM AUTOMATIC DEVELOPER) Only the most recent of15 resultswithin the time period is included. GLUCOSE POC 123(H) 70 - 99 mg/dL 12/19/2024 10:34 AM AUTOMATIC DEVELOPER [facility] 12/19/2024 10:2 9 AM AUTOMATIC DEVELOPER us Jeff Nava MD POCT ORDERABLES - DEVICE Final R esult Performing Organization Address [facility] de Phone Number [facility] [address] [place] [address], [place] [phone] * HEPARIN, ANTI XA, UFH (12/19/2024 9:17 AM AUTOMATIC DEVELOPER) Only the most recent of5 resultswithin the time period is included. HEPARIN ANTI XA UFH 0.40 0.30 - 0.70 IU/ML 12/19/2024 10:06 AM AUTOMATIC DEVELOPER [facility] Comment: UFH Therapeutic Anti Xa Ranges: Medical Therapeutic Range: 0.30 - 0.70 IU/mL Cardiac Therapeutic Range: 0.30 - 0.50 IU/mL Neuro Therapeutic Range: 0.20 - 0.40 IU/mL 12/19/2024 9:17 AM AUTOMATIC DEVELOPER us Jeff Nava MD LABORATORY Final Result Performing Organization Address [facility] de Phone Number [facility] [address] [place] [address], [place] [phone] * (ABNORMAL) PROTIME/INR, VENOUS (12/19/2024 9:17 AM AUTOMATIC DEVELOPER) Only the most recent of6 resultswithin the time period is included. PROTIME 28.5(H) 10.2 - 12.9 SEC 12/19/2024 10:06 AM AUTOMATIC DEVELOPER [facility] INR 2.6 12/19/2024 10:06 AM AUTOMATIC DEVELOPER [facility] Comment: Recommended INR Therapeutic Goals: ??2.0-3.0 Routine Therapy ??2.5-3.5 Mechanical Prosthetic Valves (High Risk) 12/19/2024 9:17 AM AUTOMATIC DEVELOPER us Jeff Nava MD LABORATORY Final Result Performing Organization Address [facility]/ZIP Co de Phone Number [facility] [address] [place] [address], [place] [phone] * (ABNORMAL) IRON SAT PANEL (IRON,IBC,%SAT) (12/19/2024 5:55 AM AUTOMATIC DEVELOPER) Pathologist [facility] IRON 41(L) 50.0 - 170.0 MCG/DL 12/19/2024 7:21 AM AUTOMATIC DEVELOPER [facility] IRON BINDING CAPACITY 346 250 - 450 MCG/DL 12/19/2024 7:21 AM AUTOMATIC DEVELOPER [facility] IRON SATURATION 12(L) 20 - 55 % 7:21 AM AUTOMATIC DEVELOPER [facility] 12/19/2024 5:55 AM AUTOMATIC DEVELOPER us Jeff Nava MD LABORATORY Final Result [facility] [address] [place] [address], [place] [phone] * (ABNORMAL) VITAMIN B-12 (12/19/2024 5:55 AM AUTOMATIC DEVELOPER) [facility] VITAMIN B12 S/P/B 187(L) 254 - 1,320 PG/ML 12/19/2024 7:25 AM AUTOMATIC DEVELOPER [facility] 12/19/2024 5:55 AM AUTOMATIC DEVELOPER us Jeff Nava MD LABORATORY Final Result [facility] [address] [place] [address], [place] [phone] * (ABNORMAL) RETICULOCYTE CT, AUTO (12/19/2024 5:55 AM AUTOMATIC DEVELOPER) [facility] RETICULOCYTE COUNT 3.5(H) 0.8 - 2.1 % 12/19/2024 6:33 AM [facility] ABSOLUTE RETICULOCYTE 0.10 0.02 - 0.10 x10'6/uL 12/19/2024 6:33 AM [facility] IMMATURE RETIC FRACTION 29.3(H) 3.0 - 15.9 % 12/19/2024 6:33 AM [facility] RETIC HGB 33.3 28.0 - 35.0 PG 12/19/2024 6:33 AM [facility] 12/19/2024 5:55 AM AUTOMATIC DEVELOPER Jeff Nava MD LABORATORY Final Result [facility] [address] [place] [address], [place] [phone] * (ABNORMAL) BASIC METABOLIC PANEL (12/19/2024 5:55 AM AUTOMATIC DEVELOPER) Only the most recent of4 resultswithin the time period is included. GLUCOSE 84 70 - 99 MG/DL 12/19/2024 7:21 AM [facility] BUN 58(H) 7 - 18 MG/DL 12/19/2024 7:21 AM [facility] CREATININE S/P/B 1.94(H) 0.55 - 1.02 MG/DL 12/19/2024 7:21 AM [facility] SODIUM S/P/B 139 136 - 145 MMOL/L 12/19/2024 7:21 AM [facility] POTASSIUM S/P/B 4.6 3.5 - 5.1 MMOL/L 12/19/2024 7:21 AM [facility] CHLORIDE S/P/B 108 97 - 115 MMOL/L 12/19/2024 7:21 AM AUTOMATIC DEVELOPER [facility] CO2 25.5 21 - 32 MMOL/L 12/19/2024 7:21 AM [facility] CALCIUM S/P/B 9.3 8.5 - 10.1 MG/DL 12/19/2024 7:21 AM [facility] ANION GAP 5.5 2 - 10 MMOL/L 12/19/2024 7:21 AM [facility] BUN CREATININE RATIO 29.9(H) 6 - 26 12/19/2024 7:21 AM [facility] GFR ESTIMATE 26(L) >90 ML/MIN/1.7 3 M2 12/19/2024 7:21 AM [facility] Comment: NOTE: eGFR is not calculated for patients <18 years of age or gender unknown. This is an estimated GFR calculation using the new CKD EPI creatinine equation without race and so does not require a correction factor for race. This estimated GFR should not be used for calculating drug doses. 12/19/2024 5:55 AM AUTOMATIC DEVELOPER us Jeff Nava MD LABORATORY Final Result [facility] [address] [place], [place] [address], [place] [phone] * FOLIC ACID SERUM (12/19/2024 5:55 AM AUTOMATIC DEVELOPER) FOLATE 14.9 3.1 - 17.5 NG/ML 12/19/2024 7:25 AM AUTOMATIC DEVELOPER [facility] 12/19/2024 5:55 AM AUTOMATIC DEVELOPER us Jeff Nava MD LABORATORY Final Result [facility] [address] [place] [address], [place] [phone] * (ABNORMAL) CBC W/DIFF AUTOMATED (12/19/2024 5:55 AM AUTOMATIC DEVELOPER) Only the most recent of6 resultswithin the time period is included. WBC 7.95 4.5 - 11.0 x10'3/uL 12/19/2024 6:33 AM [facility] RBC 3.00(L) 4.20 - 5.40 x10'6/uL 12/19/2024 6:33 AM [facility] HGB 9.4(L) 12.0 - 16.0 G/DL 12/19/2024 6:33 AM [facility] HCT 29.7(L) 38.0 - 48.0 % 12/19/2024 6:33 AM [facility] MCV 99.0 81.0 - 99.0 FL 12/19/2024 6:33 AM [facility] MCH 31.3(H) 27.0 - 31.0 PG 12/19/2024 6:33 AM [facility] MCHC 31.6(L) 32.0 - 36.0 G/DL 12/19/2024 6:33 AM [facility] RDW 15.7(H) 11.5 - 14.5 % 12/19/2024 6:33 AM [facility] PLT 113(L) 130 - 400 x10'3/uL 12/19/2024 6:33 AM [facility] MPV 9.9 9.3 - 12.2 FL 12/19/2024 6:33 AM [facility] DIFFERENTIAL TYPE MANUAL DIFFERENTIAL 12/19/2024 7:05 AM [facility] SEG NEUTROPHILS 88 % 7:05 AM [facility] LYMPHOCYTES 5 % 12/19/2024 7:05 AM [facility] MONOCYTES 4 % 12/19/2024 7:05 AM [facility] EOSINOPHILS 2 % 12/19/2024 7:05 AM [facility] BASOPHILS 1 % 12/19/2024 7:05 AM [facility] ABS. NEUTROPHILS 7.00 1.80 - 7.70 x10'3/uL 12/19/2024 7:05 AM [facility] ABS. LYMPHOCYTES 0.40(L) 1.00 - 4.80 x10'3/uL 12/19/2024 7:05 AM [facility] ABS. MONOCYTES 0.32 0.24 - 0.86 x10'3/uL 12/19/2024 7:05 AM [facility] ABS. EOSINOPHILS 0.16 0.04 - 0.36 x10'3/uL 12/19/2024 7:05 AM [facility] ABS. BASOPHILS 0.08 0.01 - 0.08 x10'3/uL 12/19/2024 7:05 AM [facility] RBC MORPHOLOGY RBC MORPHOLOGY APPEARS NORMAL. SLIDE REVIEWED. 12/19/2024 7:05 AM [facility] PLT EST. ADEQUATE 12/19/2024 7:05 AM [facility] 12/19/2024 5:55 AM AUTOMATIC DEVELOPER us Jeff Nava MD LABORATORY Final Result [facility] [address] [place] [address], [place] [phone] * MAGNESIUM (12/19/2024 5:55 AM AUTOMATIC DEVELOPER) Only the most recent of4 resultswithin the time period is included. MAGNESIUM 2.4 1.8 - 2.4 MG/DL 12/19/2024 7:21 AM AUTOMATIC DEVELOPER [facility] 12/19/2024 5:55 AM AUTOMATIC DEVELOPER us Jeff Nava MD LABORATORY Final Result [facility] [address] [place] [address], [place] [phone] * FERRITIN (12/19/2024 5:55 AM AUTOMATIC DEVELOPER) FERRITIN 139.6 8.0 - 388.0 NG/ML 12/19/2024 7:25 AM AUTOMATIC DEVELOPER [facility] 12/19/2024 5:55 AM AUTOMATIC DEVELOPER us Jeff Nava MD LABORATORY Final Result Performing Organization Address [facility] Co de Phone Number [facility] [address] [place] [address], [place] [phone] * PARTIAL THROMBOPLASTIN TIME,PTT (12/18/2024 9:19 AM AUTOMATIC DEVELOPER) Only the most recent of2 resultswithin the time period is included. PTT 32.3 25.1 - 36.5 SEC 12/18/2024 9:53 AM AUTOMATIC DEVELOPER [facility] 12/18/2024 9:19 AM AUTOMATIC DEVELOPER us Jeff Nava MD LABORATORY Final Result Performing Organization Address [facility]/ZIP Co de Phone Number [facility] [address] [place] [address], [place] [phone] * CT SOFT TISSUE NECK WO CON (12/17/2024 2:51 PM AUTOMATIC DEVELOPER) Anatomical Region Laterality Modality Neck Computed Tomogra phy 12/17/2024 3:24 PM AUTOMATIC DEVELOPER Impressions 12/17/2024 3:30 PM AUTOMATIC DEVELOPER IMPRESSION: 1. ??Hematoma within the right parietal occipital scalp, decreased in size compared to the prior head CT 12/15/2024. 2. ??Soft tissue swelling dorsal to the right sternocleidomastoid muscle and right paraspinal muscles extending from the skull base to the supraclavicular region, increased in prominence compared to the prior cervical spine CT of 12/15/2024. 3. ??Prominent carotid artery calcification. ??Further evaluation with nonemergent ultrasound or CT angiogram is recommended. 4. ??Pacemaker prior median sternotomy. Referred By: ?? Interpreted By: Binh Paris MD, 12/17/2024 3:24 PM Narrative 12/17/2024 3:30 PM AUTOMATIC DEVELOPER [address] [address] EXAMINATION:Neck soft tissue CT without contrast 12/17/2024 INDICATION:Right scalp and neck hematoma TECHNIQUE: Axial CT images of the neck were acquired without intravenous contrast. ??Sagittal coronal reformats were constructed. ??Radiation dose reduction techniques were used. COMPARISON: CT the cervical spine the 12/15/2024, head CT 12/15/2024 FINDINGS:There is a hematoma within the right temporal parietal occipital scalp measuring 6.8 x 1.1 x 5.4 cm in the CC, AP and transverse dimensions, decreased in size compared to the prior CTs. ??There is a mild cerebral atrophy with concordant prominence of ventricles. ??Paranasal sinuses and mastoid air cells are clear. ??There is straightening of the normal cervical lordosis. ??Mild degenerative changes noted at the cervical spine. ??Median sternotomy wires are noted. The parotid and submandibular glands are unremarkable. ??Thyroid gland is unremarkable. There are cavity and tongue are unremarkable. ??The nasopharynx oropharynx and hypopharynx are unremarkable. ??No prevertebral edema or retropharyngeal fluid collection. ??The vallecula epiglottis and piriform sinuses are unremarkable. ??The larynx, trachea and upper esophagus are unremarkable. ??Calcification is noted near the carotid bifurcations. ??No pathologically enlarged or necrotic cervical lymph nodes. There is soft tissue swelling, fat stranding and induration posterior to the right sternocleidomastoid muscle in the right paraspinal muscles staining from the skull base to the supraclavicular region. ??No discrete 7 neck mass or encapsulated fluid collection within the limits of a noncontrast CT. There is artifact from pacemaker the anterior upper left chest wall. ??No acute abnormality the visualized lung apices. Procedure Note Binh Paris MD - 12/17/[address] [address] EXAMINATION:Neck soft tissue CT without contrast 12/17/2024 INDICATION:Right scalp and neck hematoma TECHNIQUE: Axial CT images of the neck were acquired without intravenouscontrast. Sagittal coronal reformats were constructed. Radiation dosereduction techniques were used. COMPARISON: CT the cervical spine the 12/15/2024, head CT 12/15/2024 FINDINGS:There is a hematoma within the right temporal parietal occipitalscalp measuring 6.8 x 1.1 x 5.4 cm in the CC, AP and transversedimensions, decreased in size compared to the prior CTs. There is a mildcerebral atrophy with concordant prominence of ventricles. Paranasalsinuses and mastoid air cells are clear. There is straightening of thenormal cervical lordosis. Mild degenerative changes noted at the cervicalspine. Median sternotomy wires are noted. The parotid and submandibular glands are unremarkable. Thyroid gland isunremarkable. There are cavity and tongue are unremarkable. The nasopharynx oropharynxand hypopharynx are unremarkable. No prevertebral edema orretropharyngeal fluid collection. The vallecula epiglottis and piriformsinuses are unremarkable. The larynx, trachea and upper esophagus areunremarkable. Calcification is noted near the carotid bifurcations. Nopathologically enlarged or necrotic cervical lymph nodes. There is soft tissue swelling, fat stranding and induration posterior tothe right sternocleidomastoid muscle in the right paraspinal musclesstaining from the skull base to the supraclavicular region. No discrete 7neck mass or encapsulated fluid collection within the limits of anoncontrast CT. There is artifact from pacemaker the anterior upper left chest wall. Noacute abnormality the visualized lung apices. IMPRESSION: 1. Hematoma within the right parietal occipital scalp, decreased in sizecompared to the prior head CT 12/15/2024. 2. Soft tissue swelling dorsal to the right sternocleidomastoid muscleand right paraspinal muscles extending from the skull base to thesupraclavicular region, increased in prominence compared to the priorcervical spine CT of 12/15/2024. 3. Prominent carotid artery calcification. Further evaluation withnonemergent ultrasound or CT angiogram is recommended. 4. Pacemaker prior median sternotomy. Referred By: Interpreted By: Binh Paris MD, 12/17/2024 3:24 PM Jeff Nava MD CT Final Result * CT HEAD WO CON (12/17/2024 2:51 PM AUTOMATIC DEVELOPER) Only the most recent of2 resultswithin the time period is included. Anatomical Region Laterality Modality Head Computed Tomogra phy 12/17/2024 3:30 PM AUTOMATIC DEVELOPER Impressions 12/17/2024 3:34 PM AUTOMATIC DEVELOPER IMPRESSION: 1. ??Large hematoma within the upper right parietal scalp, not significantly changed in size. ??No depressed skull fracture. 2. ??Mild cerebral atrophy. 3. 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 4. ??No acute intracranial hemorrhage or mass effect. Referred By: ?? Interpreted By: Binh Paris MD, 12/17/2024 3:30 PM Narrative 12/17/2024 3:34 PM AUTOMATIC DEVELOPER [address] [address] EXAMINATION:Head CT without contrast 12/17/2024 INDICATION: Right scalp hematoma, recent fall TECHNIQUE: Axial CT images of the head were acquired with intravenous contrast. ??Sagittal and coronal reformats were constructed. Radiation dose reduction techniques were used. COMPARISON: Head CT 12/15/2024 FINDINGS:There is a 4.8 x 2 mm 4.0 cm hematoma within the upper right parietal scalp, not significantly changed in size compared to the prior CT but overall increased in density. ??The surrounding soft tissue swelling within the right parietal occipital scalp, decreased in prominence. ??No soft tissue gas or radiopaque foreign body. No acute fracture or dislocation. ??Paranasal sinuses and mastoid air cells are clear. ??Orbits and globes are unremarkable. ??The prior left ocular lens replacement noted. There is a 5 mm hypodensity within the inferior right cerebellar hemisphere, unchanged. There is mild cerebral atrophy with concordant prominence of the ventricles No acute intracranial hemorrhage, mass effect, midline shift or extra-axial fluid collection. Procedure Note Binh Paris MD - 12/17/[address] [address] EXAMINATION:Head CT without contrast 12/17/2024 INDICATION: Right scalp hematoma, recent fall TECHNIQUE: Axial CT images of the head were acquired with intravenouscontrast. Sagittal and coronal reformats were constructed. Radiation dosereduction techniques were used. COMPARISON: Head CT 12/15/2024 FINDINGS:There is a 4.8 x 2 mm 4.0 cm hematoma within the upper rightparietal scalp, not significantly changed in size compared to the prior CTbut overall increased in density. The surrounding soft tissue swellingwithin the right parietal occipital scalp, decreased in prominence. Nosoft tissue gas or radiopaque foreign body. No acute fracture or dislocation. Paranasal sinuses and mastoid air cellsare clear. Orbits and globes are unremarkable. The prior left ocularlens replacement noted. There is a 5 mm hypodensity within the inferior right cerebellarhemisphere, unchanged. There is mild cerebral atrophy with concordant prominence of theventricles No acute intracranial hemorrhage, mass effect, midline shift orextra-axial fluid collection. IMPRESSION: 1. Large hematoma within the upper right parietal scalp, notsignificantly changed in size. No depressed skull fracture. 2. Mild cerebral atrophy. 3. Nonspecific 5 mm hypodensity within the inferior right cerebellarhemisphere, unchanged compared to the prior CT, favored to reflect a smallchronic infarct. 4. No acute intracranial hemorrhage or mass effect. Referred By: Interpreted By: Binh Paris MD, 12/17/2024 3:30 PM Jeff Nava MD CT Final Result * (ABNORMAL) COMPREHENSIVE METABOLIC PANEL (12/16/2024 7:04 AM [facility]) GLUCOSE 98 70 - 99 MG/DL 12/16/2024 8:15 AM [facility] BUN 41(H) 7 - 18 MG/DL 12/16/2024 8:15 AM [facility] CREATININE S/P/B 1.60(H) 0.55 - 1.02 MG/DL 12/16/2024 8:15 AM [facility] SODIUM S/P/B 141 136 - 145 MMOL/L 12/16/2024 8:15 AM [facility] POTASSIUM S/P/B 4.1 3.5 - 5.1 MMOL/L 12/16/2024 8:15 AM [facility] CHLORIDE S/P/B 110 97 - 115 MMOL/L 12/16/2024 8:15 AM [facility] CO2 26.0 21 - 32 MMOL/L 12/16/2024 8:15 AM [facility] CALCIUM S/P/B 9.5 8.5 - 10.1 MG/DL 12/16/2024 8:15 AM [facility] BILIRUBIN TOTAL S/P/B 1.0 0.2 - 1.2 MG/DL 12/16/2024 8:15 AM [facility] Comment: THIS ASSAY IS NOT RECOMMENDED FOR PATIENTS UNDERGOING TREATMENT WITH ELTROMBOPAG DUE TO THE POTENTIAL FOR FALSELY ELEVATED RESULTS. TOTAL PROTEIN S/P/B 5.8(L) 6.4 - 8.2 G/DL 12/16/2024 8:15 AM [facility] ALBUMIN S/P/B 2.9(L) 3.4 - 5.0 G/DL 12/16/2024 8:15 AM [facility] AST 13(L) 15 - 37 U/L 12/16/2024 8:15 AM [facility] ALT 21 14 - 55 U/L 12/16/2024 8:15 AM [facility] ALKALINE PHOSPHATASE S/P/B 56 50 - 136 U/L 12/16/2024 8:15 AM [facility] ANION GAP 5.0 2 - 10 MMOL/L 12/16/2024 8:15 AM [facility] BUN CREATININE RATIO 25.6 6 - 26 12/16/2024 8:15 AM [facility] A/G RATIO 1.0 1.0 - 2.0 RATIO 12/16/2024 8:15 AM [facility] GFR ESTIMATE 32(L) >90 ML/MIN/1.7 3 M2 12/16/2024 8:15 AM [facility] Comment: NOTE: eGFR is not calculated for patients <18 years of age or gender unknown. This is an estimated GFR calculation using the new CKD EPI creatinine equation without race and so does not require a correction factor for race. This estimated GFR should not be used for calculating drug doses. 12/16/2024 7:0 4 AM AUTOMATIC DEVELOPER [facility] Final Result Performing Organization Address [facility] Co de Phone Number [facility] [address] [place] [address], [place] [phone] * (ABNORMAL) HEMOGLOBIN AND HEMATOCRIT (12/16/2024 12:46 AM AUTOMATIC DEVELOPER) Only the most recent of2 resultswithin the time period is included. HGB 10.2(L) 12.0 - 16.0 G/DL 12/16/2024 1:29 AM AUTOMATIC DEVELOPER [facility] HCT 31.5(L) 38.0 - 48.0 % 12/16/2024 1:29 AM AUTOMATIC DEVELOPER [facility] 12/16/2024 12:4 6 AM AUTOMATIC DEVELOPER [facility] Final Result Performing Organization Address [facility] Co de Phone Number [facility] [address] [place] [address], [place] [phone] * XR PELVIS MIN 3V (12/15/2024 3:57 PM AUTOMATIC DEVELOPER) Anatomical Region Laterality Modality Pelvis Radiographic Kristine ging 12/15/2024 4:52 PM AUTOMATIC DEVELOPER Impressions 12/15/2024 4:53 PM AUTOMATIC DEVELOPER [address] [address] Impression: Please see separate dictated report of the the bilateral hips which includes the pelvis. Ordered By: DARCIE MACK Interpreted By: Chandrakant Chandler MD, 12/15/2024 4:52 PM Narrative Procedure Note Chandrakant Chandler MD - 12/15/[address] [address] Impression: Please see separate dictated report of the the bilateral hipswhich includes the pelvis. Ordered By: DARCIE MACK Interpreted By: Chandrakant Chandler MD, 12/15/2024 4:52 PM Darcie Mack [facility] Final Result * XR HIP PHYLLIS 2V+PELVIS (12/15/2024 12:27 PM AUTOMATIC DEVELOPER) Anatomical Region Laterality Modality Hip, Pelvis Radiographic Kristine ging 12/15/2024 12:3 6 PM AUTOMATIC DEVELOPER Impressions 12/15/2024 12:49 PM AUTOMATIC DEVELOPER IMPRESSION: 1. ??No definite evidence of acute fracture or dislocation in the right or left hips or AP pelvis. 2. ??Asymmetry of the right iliopectineal line on all the pelvic projections is felt to be rotational or projectional artifact. 3. ??Any ??point tenderness over the right femoral head might warrant further evaluation which could begin with MORRIS and TYSON and Judet projections. Referred By: ?? Interpreted By: Lindsey Cunningham DO, 12/15/2024 12:36 PM Narrative 12/15/2024 12:49 PM AUTOMATIC DEVELOPER [address] [address] CLINICAL INDICATION: 79-year-old female. Reason for examination: Fall. 12/15/2024 12:26 PM, Wilian Jackson C: Pt arrives by EMS from [facility] with complaints of a headache that comes and goes, she has had a headache since Sunday after falling. She fell backwards landing on the concrete, no LOC, no nausea or vomiting. She was seen on [place] on Sunday night following the fall. Facility was also concerned about abnormal lab results after her blood draw this morning TECHNIQUE: Supine AP view of the pelvis and AP and lateral views of the right and left hips in 8 projections COMPARISON: No previous imaging of the hips or pelvis Outside imaging from [facility] not available FINDINGS: Right hip: No evidence of acute fracture or dislocation. ??Right femoral head is well rounded and normally seated within the acetabulum. ??Mild medial hip joint space narrowing. ??The right superior and inferior pubic ramus and right proximal femoral diaphysis is intact. 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 ??Left femoral head is well rounded and normally seated within the acetabulum. ??Mild degenerative medial hip joint space narrowing. ??The left superior and inferior pubic ramus left proximal femoral diaphysis is intact There are image tram track calcification left internal and external iliac arteries and the SFA and profunda. AP pelvis: No definite evidence of acute fracture or dislocation. ??The sacrum is intact. ??The sacroiliac joints are symmetric. ??The bilateral ileum and ischium are intact. On all of the images of the right iliopectineal line is asymmetric with the left however this appears to be projectional or rotational there is no lucency or disruption is seen of the curvilinear anterior column of the right acetabulum. Procedure Note Lindsey Cunningham MD - 12/15/[address] [address] CLINICAL INDICATION: 79-year-old female. Reason for examination: Fall. 12/15/2024 12:26 PM, Wilian Jackson C: Pt arrives by EMS from [facility] with complaints of a headache that comes and goes, she hashad a headache since Sunday after falling. She fell backwards landing onthe concrete, no LOC, no nausea or vomiting. [place]. Facility was also concerned aboutabnormal lab results after her blood draw this morning TECHNIQUE: Supine AP view of the pelvis and AP and lateral views of the right andleft hips in 8 projections COMPARISON: No previous imaging of the hips or pelvis Outside imaging from [facility] not available FINDINGS: Right hip: No evidence of acute fracture or dislocation. Right femoral head is wellrounded and normally seated within the acetabulum. Mild medial hip jointspace narrowing. The right superior and inferior pubic ramus and rightproximal femoral diaphysis is intact. Extensive tram track calcification of the right internal and externaliliac arteries and the SFA and profunda Left hip: No evidence of acute fracture or dislocation. Left femoral head is wellrounded and normally seated within the acetabulum. Mild degenerativemedial hip joint space narrowing. The left superior and inferior pubicramus left proximal femoral diaphysis is intact There are image tram track calcification left internal and external iliacarteries and the SFA and profunda. AP pelvis: No definite evidence of acute fracture or dislocation. The sacrum isintact. The sacroiliac joints are symmetric. The bilateral ileum andischium are intact. On all of the images of the right iliopectineal line is asymmetric withthe left however this appears to be projectional or rotational there is nolucency or disruption is seen of the curvilinear anterior column of theright acetabulum. IMPRESSION: 1. No definite evidence of acute fracture or dislocation in the right orleft hips or AP pelvis. 2. Asymmetry of the right iliopectineal line on all the pelvicprojections is felt to be rotational or projectional artifact. 3. Any point tenderness over the right femoral head might warrantfurther evaluation which could begin with MORRIS and TYSON and Judetprojections. Referred By: Interpreted By: Lindsey Cunningham DO, 12/15/2024 12:36 PM Swapna Celis MD [facility] Final Result * CT CERV SPINE WO CON (12/15/2024 12:11 PM AUTOMATIC DEVELOPER) Anatomical Region Laterality Modality Spine Computed Tomogra phy 12/15/2024 12:2 3 PM AUTOMATIC DEVELOPER Impressions 12/15/2024 12:26 PM AUTOMATIC DEVELOPER IMPRESSION: 1. No definite acute fractures identified in the cervical spine. 2. Degenerative changes. Ordered By: SWAPNA CELIS Interpreted By: Connor Baez MD, 12/15/2024 12:23 PM Narrative 12/15/2024 12:26 PM AUTOMATIC DEVELOPER [address] [address] DATE: 12/15/2024 12:06 PM EXAMINATION: CT Cervical Spine without contrast CLINICAL HISTORY: Fall COMPARISON: None TECHNIQUE: CT examination of the cervical spine was performed without contrast. ??Axial and multiplanar reformatted images were obtained. A dose lowering technique was used for this procedure, which may include, but is not limited to, dose reduction technique, automated exposure control, the use of iterative reconstruction, and ALARA (As Low As Reasonably Achievable) / Image Gently techniques. FINDINGS: There is 2 mm anterolisthesis of C4 on C5. Rightward rotation of C1 relative to C2. Otherwise the cervical vertebral alignment, vertebral body heights, and facet alignment are maintained. C1-C2 lateral mass and atlantooccipital articulations are otherwise preserved. Odontoid process intact. No definite acute fractures identified in the cervical spine. Multilevel degenerative changes are evident in the cervical spine with disc degeneration, endplate/uncovertebral osteophytes, and facet hypertrophy noted. Greatest loss of disc height at C5-C6. Imaged portions of the soft tissues reveal atherosclerotic calcifications. Probable dystrophic epiglottic calcifications. Partially imaged left-sided cardiac pacemaker leads. Partially imaged surgical changes of median sternotomy. Procedure Note Connor Baez MD - 12/15/2024 [facility] [place], [place] [address] DATE: 12/15/2024 12:06 PM EXAMINATION: CT Cervical Spine without contrast CLINICAL HISTORY: Fall COMPARISON: None TECHNIQUE: CT examination of the cervical spine was performed withoutcontrast. Axial and multiplanar reformatted images were obtained. A dose lowering technique was used for this procedure, which may include,but is not limited to, dose reduction technique, automated exposurecontrol, the use of iterative reconstruction, and ALARA (As Low AsReasonably Achievable) / Image Gently techniques. FINDINGS: There is 2 mm anterolisthesis of C4 on C5. Rightward rotation of N6yaojfaca to C2. Otherwise the cervical vertebral alignment, vertebral bodyheights, and facet alignment are maintained. C1-C2 lateral mass andatlantooccipital articulations are otherwise preserved. Odontoid processintact. No definite acute fractures identified in the cervical spine.Multilevel degenerative changes are evident in the cervical spine withdisc degeneration, endplate/uncovertebral osteophytes, and facethypertrophy noted. Greatest loss of disc height at C5-C6. Imaged portionsof the soft tissues reveal atherosclerotic calcifications. Probabledystrophic epiglottic calcifications. Partially imaged left-sided cardiacpacemaker leads. Partially imaged surgical changes of median sternotomy. IMPRESSION: 1. No definite acute fractures identified in the cervical spine. 2. Degenerative changes. Ordered By: SWAPNA CELIS Interpreted By: Connor Baez MD, 12/15/2024 12:23 PM [address]na Celis MD CT Final Result from Last 3 Months Insurance [address] [place] [address] [facility] MEDICARE Advance Directives * Full Code (Latest Code Status on File) Date Activated Date Inactivated Comments 12/15/2024 2:39 PM 12/19/2024 5:41 PM Care Teams Scrap Crusher Relationship Specialty Start Date End Date Meredith Aburto NP [address] [place] [id number] PCP - General Nurse Practitioner Family 12/15/24
--- OUTSIDE RECORDS SUMMARY | 2024-12-22 11:44 | XMS_ITS | Encounter Summary ---
Author Organization [facility] Address [address] [place] [address] Care Team Providers Care Life Specialist Name Role Phone Juana Mesa MD Primary Care Provider Juana Mesa MD Primary Care Provider Juana Mesa MD Unavailable [phone] Juana Mesa MD Unavailable [phone] Juana Mesa MD Unavailable [phone] Juana Mesa MD Unavailable Juana Mesa MD Unavailable [phone] Juana Mesa MD Unavailable [phone] Ra Jara MD Unavailable Dada Lou MD Unavailable Unavailable Paco Holden MD Unavailable [phone] Paramjit Escobar MD Unavailable [phone] Encounter Details Date Type Department Care Team (Late st Contact Info) Description 07/05/2020 Lab Requisition [facility] [address] [place] [phone] Vashti Milan, [address] [facility] [address] [place] [address] Social History Tobacco Use Types Packs/Day Years Used Date Smoking Tobacco: Former Cigarettes 2 13 0 11/26/1961 - 11/26/1974 Smokeless Tobacco: Never Alcohol Use Standard Drinks/Week Comments Yes 0 (1 standard drink = 0.6 oz pur e alcohol) Sex and Gender Information Value Date Recorded Sex Assigned at Not on file Gender Identity Not on file Sexual Orientation Not on file COVID-19 Exposure Response Date Recorded In the last month, have you been in contact with someone who was confirmed or suspected to have Coronavirus / COVID-19? No / Unsure 06/16/2020 10:42 AM CDT documented as of this encounter Functional Status [...] 7.0 Result Component 6.4( 7 6:22 AM PRISONER CLASSIFICATION INTERVIEWER) No Kannan Lang documented as of this encounter Procedures Procedure Name Priority Date/Time Associated Diagnosis Comments DERMATOPATHOLOGY Routine 07/01/2020 12:0 0 AM CDT documented in this encounter Results * DERMATOPATHOLOGY (07/01/2020 12:00 AM CDT) Case Report Dermatopathology Report ? Case: [id number] ? Authorizing Provider: ??Vashti Milan, DO ?? Collected: ? 07/01/2020 12:00 AM ? Ordering Location: ? [facility] ?Received: ?07/05/2020 11:58 AM ? Pathologist: ? Julian Maldonado MD ? Specimen: ?Skin, mid chest ? 0 12:20 PM CDT DERMATOPATHOLOGY LABORATORY Final Diagnosis Specimen A. 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 The specimen consists of a shave biopsy measuring 7x6x1 mm. Jar 0. 0 12:20 PM CDT DERMATOPATHOLOGY LABORATORY Microscopic Description Specimen A. SKIN, mid chest: The epidermis shows parakeratosis, full thickness disorderly maturation of keratinocytes, mitoses at different levels, and dyskeratotic cells. 0 12:20 PM CDT DERMATOPATHOLOGY LABORATORY Disclaimer An external and internal positive and negative controls are appropriate for the histochemical, immunohistochemical and immunofluorescence stain(s) in this case (if any), except where stated explicitly. The performance characteristics of the stain(s) cited in this report were developed and its performance characteristic determined by the Dermatopathology Laboratory at [facility], directed by Dr. Ines Maldonado. These tests need not be, and therefore are not, approved by the [place] Food and Drug Administration. The tests are used for clinical purposes. Billing Codes Specimen Charges Stain Charges 58993 1 0 12:20 PM CDT DERMATOPATHOLOGY LABORATORY Embedded Images 0 12:20 PM CDT DERMATOPATHOLOGY LABORATORY Pathology/Cytolog y TISSUE SPECIMEN FROM SKIN / Unknown 07/01/2020 07/05/2020 11:58 AM CDT Vashti Milan DO LAB - PATHOLOGY/C YTOLOGY ORDERABLES Performing Organization Address City/State/[facility] Co de Phone Number DERMATOPATHOLOGY LABORATORY [facility] - Department of Dermatology [facility]/[address] [phone] documented in this encounter Visit Diagnoses Not on filedocumented in this encounter Care Teams Life Specialist Relationship Specialty Start Date End Date Juana Mesa MD [address] [place] [id number] PCP - General 07/01/20 04/10/21 Juana Mesa MD [address] [place] [address] [facility] - General 04/11/21 Juana Mesa MD [address] [place] [address] 04/11/21 Juana Mesa MD [facility] [place] [address] 07/01/20 Juana Mesa MD [address] [place] [address] 12/22/19 Juana Mesa MD [facility] [place] [address] 07/21/19 Juana Mesa MD [facility] [place] [address] 07/12/18 Juana Mesa MD [facility] [place] [address] Family Medicine 05/03/18 Ra Jara MD [address] [place] [phone] Endocrinology 04/21/14 Dada Lou MD [address] [place] [phone] Internal Medicine 11/09/15 Paco Holden MD [address] [place] [address] Neurology 05/11/16 Paramjit Escobar MD [address] [place] [address] Internal Medicine 11/23/16 documented as of this encounter
--- OUTSIDE RECORDS SUMMARY | 2024-12-22 11:44 | XMS_ITS | Encounter Summary ---
Author Organization [facility] Address [address] [place] [address] Care Team Providers Care Treasury Representative Name Role Phone Juana Mesa MD Primary Care Provider Juana Mesa MD Primary Care Provider Juana Mesa MD Unavailable [phone] Juana Mesa MD Unavailable [phone] Juana Mesa MD Unavailable [phone] Juana Mesa MD Unavailable Juana Mesa MD Unavailable [phone] Juana Mesa MD Unavailable [phone] Ra Jara MD Unavailable Dada Lou MD Unavailable Unavailable Paco Holden MD Unavailable [phone] Paramjit Escobar MD Unavailable [phone] Encounter Details Date Type Department Care Team (Late st Contact Info) Description 08/19/2020 Lab Requisition [facility] [address] [facility], [place] [address] Harper Metzger MD [address] [facility] 3L [place] [address] Social History Tobacco Use Types Packs/Day Years [...] 7.0 Result Component 6.4( 7 6:22 AM DIRECTOR MICROBIOLOGY) No Lang, Marnice A documented as of this encounter Procedures Procedure Name Priority Date/Time Associated Diagnosis Comments DERMATOPATHOLOGY Routine 08/18/2020 12:0 0 AM CDT documented in this encounter Results * DERMATOPATHOLOGY (08/18/2020 12:00 AM CDT) Case Report Dermatopathology Report ? Case: [id number] ? Authorizing Provider: ??Harper Metzger MD ?Collected: ? 08/18/2020 12:00 AM ? Ordering Location: ? [facility] ?Received: ?08/19/2020 09:56 AM ? Pathologist: ? Shavon Moreno MD ? Specimen: ?Skin, mid chest ? 0 5:29 PM CDT DERMATOPATHOLOGY LABORATORY Final Diagnosis Specimen A. 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 Previous Bx: [id number]. 0 5:29 PM CDT DERMATOPATHOLOGY LABORATORY Gross Description Specimen A: Received is one formalin filled container labeled with the patient's name and designated mid chest.The specimen consists of an ellipse measuring [id number] and is oriented with the notch at the 12 o'clock position, not labeled on the requisition. the epidermal surface consists of a centrally located 5x5mm previous biopsy site. The 12 to 6 o'clock margin is inked green. The 6 o'clock to 12 o'clock margin is inked black. The 12 o'clock tip is submitted in cassette 1. The 6 o'clock tip is submitted in cassette 2. The remainder of the ellipse is serially sectioned and submitted in cassettes 3-4. Jar 0. 0 5:29 PM T DERMATOPATHOLOGY LABORATORY Microscopic Description Specimen A. SKIN, mid chest: The epidermis shows parakeratosis, full thickness disorderly maturation of keratinocytes, and dyskeratotic cells. This lesion is not present at the margin of the specimen. There are fibroblasts and collagen bundles oriented parallel to the skin surface with elongated blood vessels, some of which are oriented perpendicular to the skin surface. 0 5:29 PM T DERMATOPATHOLOGY LABORATORY Disclaimer An external and internal positive and negative controls are appropriate for the histochemical, immunohistochemical and immunofluorescence stain(s) in this case (if any), except where stated explicitly. The performance characteristics of the stain(s) cited in this report were developed and its performance characteristic determined by the Dermatopathology Laboratory at [facility], directed by Dr. Ines Maldonado. These tests need not be, and therefore are not, approved by the [place] Food and Drug Administration. The tests are used for clinical purposes. Billing Codes Specimen Charges Stain Charges 23018 1 0 5:29 PM CDT DERMATOPATHOLOGY LABORATORY Embedded Images 0 5:29 PM CDT DERMATOPATHOLOGY LABORATORY Pathology/Cytolog y TISSUE SPECIMEN FROM SKIN / Unknown 08/18/2020 08/19/2020 9:56 AM CDT Harper Metzger MD LAB - PATHOLOGY/CYTO LOGY ORDERABLES DERMATOPATHOLOGY LABORATORY [facility] - Department of Dermatology [address], [address] [phone] documented in this encounter Visit Diagnoses Not on filedocumented in this encounter Care Teams Treasury Representative Relationship Specialty Start Date End Date Juana Mesa MD [address] [place] [address] PCP - General 07/01/20 04/10/21 Juana Mesa MD [address] [place] [address] PCP - General 04/11/21 Juana Mesa MD [address] [place] [address] 04/11/21 Juana Mesa MD [address] [place] [address] 07/01/20 Juana Mesa MD [address] [place] [address] 12/22/19 Juana Mesa MD [facility] [place] [address] 07/21/19 Juana Mesa MD [facility] [place] [address] 07/12/18 [place] [address] [place] [address] [place] [address] Family Medicine 05/03/18 Ra Jara MD [address] [place] [phone] Endocrinology 04/21/14 Dada Lou MD [address] [place] [phone] Internal Medicine 11/09/15 Paco Holden MD [address] [place] [phone] Neurology 05/11/16 Paramjit Escobar MD [address] [place] [phone] Internal Medicine 11/23/16 documented as of this encounter
--- OUTSIDE RECORDS SUMMARY | 2024-12-22 11:44 | XMS_ITS | Encounter Summary ---
Author Organization [facility] Address [address] [place] [address] Care Team Providers Care Library Specialist Name Role Phone Juana Mesa MD Primary Care Provider Juana Mesa MD Primary Care Provider Juana Mesa MD Primary Care Provider Juana Mesa MD Unavailable [phone] Juana Mesa MD Unavailable [phone] Juana Mesa MD Unavailable [phone] Juana Mesa MD Unavailable [phone] Juana Mesa MD Unavailable [phone] Juana Mesa MD Unavailable Ra Jara MD Unavailable Dada Lou MD Unavailable Unavailable Paco Holden MD Unavailable Paramjit Escobar MD Unavailable [phone] Encounter Details Date Type Department Care Team (Late st Contact Info) Description 12/23/2019 Lab Requisition [facility] [address] [facility], [place] [address] Vashti Milan DO [address] [facility] 3L [place] [address] Social History Tobacco Use Types Packs/Day Years [...] 7.0 Result Component 6.4( 7 6:22 AM WORK TICKET DISTRIBUTOR) No Lang, Marnice A documented as of this encounter Procedures Procedure Name Priority Date/Time Associated Diagnosis Comments DERMATOPATHOLOGY Routine 12/22/2019 12:0 0 AM WORK TICKET DISTRIBUTOR documented in this encounter Results * DERMATOPATHOLOGY (12/22/2019 12:00 AM WORK TICKET DISTRIBUTOR) Case Report Dermatopathology Report ? Case: [id number] ? Authorizing Provider: ??Vashti Milan, ?? Collected: ? 12/22/2019 12:00 AM ? Ordering Location: ? [facility] ?Received: ?12/23/2019 12:34 PM ? Pathologist: ? Anamika Whatley MD ? Specimens: ?? A) - Skin, left upper arm ? B) - Skin, right back ? 0 1:39 PM WORK TICKET DISTRIBUTOR DERMATOPATHOLOGY LABORATORY Final Diagnosis Specimen A. 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 SKIN, right back: SEBORRHEIC KERATOSIS, MACULAR (L82.1) 0 1:39 PM [facility] DERMATOPATHOLOGY LABORATORY Clinical History A: R/O SCC B: Nevus R/O atypia 0 1:39 PM [facility] DERMATOPATHOLOGY LABORATORY Gross Description Specimen A: Received is one formalin filled container labeled with the patient's name and designated left upper arm. The specimen consists of a shave biopsy measuring 7x7x13 mm. Jar 0. Specimen B: Received is one formalin filled container labeled with the patient's name and designated right back. The specimen consists of a shave biopsy measuring 5x5x1 mm. Jar 0. 0 1:39 PM [facility] DERMATOPATHOLOGY LABORATORY Microscopic Description Specimen A. SKIN, left upper arm: There is a dome-shaped portion of skin with psoriasiform epidermal hyperplasia, compact hyperkeratosis, and fibrosis of the papillary dermis associated with a superficial perivascular lymphohistiocytic infiltrate. A focal erosion is present. Specimen B. SKIN, right back: Sections show a relatively broad, flat proliferation of small keratinocytes. The surface is gently papillated, and there is increased basilar pigmentation. 0 1:39 PM [facility] DERMATOPATHOLOGY LABORATORY Disclaimer An external and internal positive and negative controls are appropriate for the histochemical, immunohistochemical and immunofluorescence stain(s) in this case (if any), except where stated explicitly. The performance characteristics of the stain(s) cited in this report were developed and its performance characteristic determined by the Dermatopathology Laboratory at [facility], directed by Dr. Ines Maldonado. These tests need not be, and therefore are not, approved by the [place] Food and Drug Administration. The tests are used for clinical purposes. Billing Codes Specimen Charges Stain Charges 12657 57004 1 1 0 1:39 PM [facility] DERMATOPATHOLOGY LABORATORY Embedded Images 0 1:39 PM [facility] DERMATOPATHOLOGY LABORATORY Pathology/Cytology TISSUE SPECIMEN FROM SKIN / Unknown 12/22/2019 12/23/2019 12:34 PM WORK TICKET DISTRIBUTOR Miscellaneous samples (specimen) TISSUE SPECIMEN FROM SKIN / Unknown 12/22/2019 12/23/2019 12:34 PM WORK TICKET DISTRIBUTOR Vashti Milan DO LAB - PATHOLOGY/C YTOLOGY ORDERABLES DERMATOPATHOLOGY LABORATORY [facility] - Department of Dermatology [address] [facility], 5th [place] [address], [facility] [phone] documented in this encounter Visit Diagnoses Not on filedocumented in this encounter Care Teams Library Specialist Relationship Specialty Start Date End Date Juana Mesa MD [address] [facility] [place] [address] PCP - General 12/22/19 06/30/20 Juana Mesa MD [address] [facility] [place] [address] PCP - General 07/01/20 04/10/21 Juana Mesa MD [address] [facility] [place] [address] PCP - General 04/11/21 Juana Mesa MD [address] [facility] [place] [address] 04/11/21 Juana Mesa MD [address] [facility] [place] [address] 07/01/20 Juana Mesa MD [address] [facility] [place] [address] 12/22/19 Juana Mesa MD [address] [facility] [place] [address] 07/21/19 Juana Mesa MD [address] [facility] [address] [place] [address] [place] [phone] 07/12/18 Juana Mesa MD [address] [facility] [address] [place] [address] [place] [phone] Family Medicine 05/03/18 Ra Jara MD [address] [place] [address] Endocrinology 04/21/14 Dada Lou MD [address] [place] [phone] Internal Medicine 11/09/15 Paco Holden MD [facility] [place] [address] Neurology 05/11/16 Paramjit Escobar MD [facility] [place] [address] Internal Medicine 11/23/16 documented as of this encounter
--- OUTSIDE RECORDS SUMMARY | 2024-12-22 11:45 | XMS_ITS | Patient Health Record ---
Author Organization [facility] Address [address] [address] [place] [address] Care Team Providers Care Traveling Sales Executive Name Role Phone Paulette Prieto Primary Care Provider Dariel Walsh Unavailable [phone] Allergies Allergen (clinical drug ingredient) Drug/Non Drug Allergy documented on EMR Reaction Allergy Type Onset Date Status codeine Codeine Unknown Drug Allergy Active Reason For Referral No Information Medications Medication SIG (Take, Route, Fr equency, Duration) Notes Start Date End Date Status Escitalopram Oxalate Active Alendronate Sodium A ctive Warfarin Sodium Acti ve Fluticasone Furoate Active Farxiga Active Donepezil HCl Active Carvedilol Active Spironolactone Activ e Ipratropium Gormania Active GaviLAX Active Azelastine HCl Activ e Breztri Aerosphere A ctive Benzonatate Active Atorvastatin Calcium Active Olopatadine HCl Acti ve Furosemide Active rOPINIRole HCl Activ e Social History Tobacco Use: Social History Observation Description Date Details (start date - stop date) Former Smoker NA - NA Tobacco Use/Smoking Question Answer Notes Are you a former smoker Problems Problem Type SNOMED Code ICD Code Onset Dates Problem Status W/U Status Risk Notes Problem [id number] Type 2 diabetes mellitus with diabetic polyneuropathy, unspecified whether assistant terminal manager insulin use (E11.42) Active confirmed Plan Of Treatment No Information Insurance Providers Payer Name Payer Address Payer Phone Subscriber Number Group Number Insured Name Patient Relationship to Insured Coverage Start Date Coverage End Date Medicare [address] [place] [id number] Kay Wyatt ch Self - patient is the insured [facility] [address] [place] [id number] [id number] Plan F Kay Wyatt ch Self - patient is the insured Medical (General) History Medical History History ICD Code Afib Asthma Bleeding disorder Blood clot CAD Diabetes Heart Attake CHF High cholestrol Kidney disease COPD Neuropathy Pacemaker PAD Pneumonia Stroke Wounds Surgical History Surgery Date(Month/Year) Artificial Heart Valve 2005
--- OUTSIDE RECORDS SUMMARY | 2024-12-22 11:45 | XMS_ITS | Encounter Summary ---
Author Organization [facility] Facility Care Team Providers Care Citrix Consultant Name Role Phone Juana Mesa MD Primary Care Provider [phone] Sharlene Meléndez EXECUTIVE ADMINISTRATIVE ASST Unavailable [phone] Sharlene Meléndez EXECUTIVE ADMINISTRATIVE ASST Unavailable [phone] Lissette Riley Unavailable No, Physician Primary Care Provider [phone] Paulette Prieto NUMERICAL CONTROL TOOL PROGRAMMER Primary Care Provider [phone] Meredith Aburto NUMERICAL CONTROL TOOL PROGRAMMER Primary Care Provi arlette No, Physician Primary Care Provider [phone] Encounter Details Date Type Department Care Team (Latest Contact Info) Description 06/12/2018 Orders Only [facility] ProviderDwayne MD [address] [place] [address] Social History Tobacco Use Types Packs/Day Years Used Date Smoking Tobacco: Former Smokeless Tobacco: Never Alcohol Use Standard Drinks/Week Comments Yes 0 (1 standard drink = 0.6 oz pur e alcohol) Comments Unknown Sex and Gender Information Value Date Recorded Sex Assigned at Not on file Legal Sex Female 9:08 AM MORGUE KEEPER Gender Identity Female 06/25/2019 7:13 AM CDT Sexual Orientation Not on file documented as of this encounter Plan of Treatment Not on file documented as of this encounter Procedures Procedure Name Priority Date/Time Associated Diagnosis Comments SCAN - PATHOLOGY 06/12/2018 12:0 0 AM CDT documented in this encounter Results * SCAN - PATHOLOGY (06/12/2018 12:00 AM CDT) Narrative 06/12/2018 12:00 AM CDT Ordered by an unspecified provider. us Historical Provider Final Res ult documented in this encounter Visit Diagnoses Not on filedocumented in this encounter Additional Health Concerns Infection Onset Date Last Indicated Resolved Time C. difficile Comment:No further diarrhea 04/18/2017 04/17/2017 12/30/2021 2 :39 PM MORGUE KEEPER COVID: Suspected 07/05/2020 07/05/2020 07/19/2020 3:05 AM CDT COVID: Suspected 07/01/2021 07/01/2021 07/01/2021 2:38 PM CDT COVID: Suspected 07/01/2021 07/01/2021 07/01/2021 9:10 PM CDT COVID19 07/01/2021 07/01/2021 07/15/2021 3:05 AM CDT COVID: Recovered Comment:Added based on recent COVID infection. 07/15/2021 07/15/2021 11/12/2021 3:[address] COVID: Suspected 11/28/2021 11/28/2021 11/28/2021 7:00 PM MORGUE KEEPER COVID19 11/28/2021 11/28/2021 12/12/2021 3:05 AM MORGUE KEEPER COVID: Recovered Comment:Added based on recent COVID infection. 12/12/2021 12/12/2021 04/11/2022 3:05 AM C DT COVID: Suspected 07/05/2022 07/05/2022 07/05/2022 10:39 PM CDT MRSA 07/06/2022 07/06/2022 01/02/2023 3:05 AM MORGUE KEEPER COVID19 12/02/2022 12/02/2022 12/13/2022 3:05 AM MORGUE KEEPER COVID: Recovered Comment:Added based on recent COVID infection. 12/13/2022 12/15/2022 03/13/2023 3:05 AM C DT Exposure, COVID-19 Comment:No direct exposure. Pt in COVID recovery window. No concern for new infection. Ana Aguilera 01/15/2023 Added automatically based on COVID19 lab answers indicating exposure risk 01/14/2023 01/14/2023 01/15/2023 10:17 AM MORGUE KEEPER COVID: Suspected 01/14/2023 01/14/2023 01/14/2023 6:42 PM MORGUE KEEPER Human metapneumovirus, conta ct + droplet 01/14/2023 01/14/2023 01/21/2023 3:[address] COVID: Suspected 01/30/2023 01/30/2023 01/30/2023 10:06 PM MORGUE KEEPER documented as of this encounter Care Teams Citrix Consultant Relationship Specialty Start Date End Date Juana Mesa MD [address] [facility] [address] [place] [address] [place] [address] PCP - General 11/26/17 10/26/18 No, Physician PCP - General 06/20/22 06/21/22 Paulette Prieto NP [address] [place] [address] PCP - General Nurse Practitioner 06/22/22 08/16/23 Meredith Aburto NP [address] [place] [address] PCP - General Family Medicine 08/17/23 09/11/24 No, Physician PCP - General 09/12/24 Sharlene Meléndez, EXECUTIVE ADMINISTRATIVE ASST [address] [facility] [address] [place] [address] [place] [address] Decorative Greens Cutter 07/02/18 07/02/18 Sharlene Meléndez LPN [address] [facility] [address] [facility] [address] [place] [address] Decorative Greens Cutter 11/05/19 11/05/19 Lissette Riley [address] [facility] [address] [place] [address] ACO Care Crm Business Analyst 01/15/20 01/15/20 documented as of this encounter
--- OUTSIDE RECORDS SUMMARY | 2024-12-22 11:45 | XMS_ITS | Encounter Summary ---
Author Organization [facility] Facility Care Team Providers Care Regional Otr Company Driver Name Role Phone Juana Mesa MD Primary Care Provider [phone] Sharlene Meléndez LPN Unavailable Lissette Riley Unavailable No, Physician Primary Care Provider [phone] Paulette Prieto PLASTER MOLDER Primary Care Provider [phone] Meredith Aburto PLASTER MOLDER Primary Care Provi arlette No, Physician Primary Care Provider [phone] Encounter Details Date Type Department Care Team (Latest Contact Info) Description 08/06/2018 Orders Only [facility] CLINCON[facility] ProviderDwayne MD [address] [place] [address] Social History Tobacco Use Types Packs/Day Years Used Date Smoking Tobacco: Former Smokeless Tobacco: Never Alcohol Use Standard Drinks/Week Comments Yes 0 (1 standard drink = 0.6 oz pur e alcohol) Comments Unknown Sex and Gender Information Value Date Recorded Sex Assigned at Not on file Legal Sex Female 9:08 AM SUBASSEMBLY SUPERVISOR Gender Identity Female 06/25/2019 7:13 AM CDT Sexual Orientation Not on file documented as of this encounter Plan of Treatment Not on file documented as of this encounter Procedures Procedure Name Priority Date/Time Associated Diagnosis Comments PROCEDURE - RESULT 08/06/2018 12 :00 AM CDT documented in this encounter Results * PROCEDURE - RESULT (08/06/2018 12:00 AM CDT) Narrative 08/06/2018 12:00 AM CDT Ordered by an unspecified provider. us Historical Provider MD Final Res ult documented in this encounter Visit Diagnoses Not on filedocumented in this encounter Additional Health Concerns Infection Onset Date Last Indicated Resolved Time C. difficile Comment:No further diarrhea 04/18/2017 04/17/2017 12/30/2021 2 :39 PM SUBASSEMBLY SUPERVISOR COVID: Suspected 07/05/2020 07/05/2020 07/19/2020 3:05 AM CDT COVID: Suspected 07/01/2021 07/01/2021 07/01/2021 2:38 PM CDT COVID: Suspected 07/01/2021 07/01/2021 07/01/2021 9:10 PM CDT COVID19 07/01/2021 07/01/2021 07/15/2021 3:05 AM CDT COVID: Recovered Comment:Added based on recent COVID infection. 07/15/2021 07/15/2021 11/12/2021 3:[address] COVID: Suspected 11/28/2021 11/28/2021 11/28/2021 7:00 PM SUBASSEMBLY SUPERVISOR COVID19 11/28/2021 11/28/2021 12/12/2021 3:05 AM SUBASSEMBLY SUPERVISOR COVID: Recovered Comment:Added based on recent COVID infection. 12/12/2021 12/12/2021 04/11/2022 3:05 AM C DT COVID: Suspected 07/05/2022 07/05/2022 07/05/2022 10:39 PM CDT MRSA 07/06/2022 07/06/2022 01/02/2023 3:05 AM SUBASSEMBLY SUPERVISOR COVID19 12/02/2022 12/02/2022 12/13/2022 3:05 AM SUBASSEMBLY SUPERVISOR COVID: Recovered Comment:Added based on recent COVID infection. 12/13/2022 12/15/2022 03/13/2023 3:05 AM C DT Exposure, COVID-19 Comment:No direct exposure. Pt in COVID recovery window. No concern for new infection. Ana Aguilera 01/15/2023 Added automatically based on COVID19 lab answers indicating exposure risk 01/14/2023 01/14/2023 01/15/2023 10:17 AM SUBASSEMBLY SUPERVISOR COVID: Suspected 01/14/2023 01/14/2023 01/14/2023 6:42 PM SUBASSEMBLY SUPERVISOR Human metapneumovirus, conta ct + droplet 01/14/2023 01/14/2023 01/21/2023 3:[address] COVID: Suspected 01/30/2023 01/30/2023 01/30/2023 10:06 PM SUBASSEMBLY SUPERVISOR documented as of this encounter Care Teams Regional Otr Company Driver Relationship Specialty Start Date End Date Juana Mesa MD [address] [facility] [address] [place] [place] [address] PCP - General 11/26/17 10/26/18 No, Physician PCP - General 06/20/22 06/21/22 Paulette Prieto, CARMEN [address] [place] [address] PCP - General Nurse Practitioner 06/22/22 08/16/23 Meredith Aburto, CARMEN [address] [facility] [place] [address] PCP - General Family Medicine 08/17/23 09/11/24 No, Physician PCP - General 09/12/24 Sharlene Meléndez LPN [address] [facility] [address] [place] [address] Barrel Raiser Helper 11/05/19 11/05/19 Lissette Riley [address] [place] [address] [place] [address] ACO Care Human Resources Supervisor 01/15/20 01/15/20 documented as of this encounter
--- OUTSIDE RECORDS SUMMARY | 2024-12-22 11:45 | XMS_ITS | Encounter Summary ---
Author Organization [facility] Facility Care Team Providers Care Pharmacy Grad Intern Name Role Phone Juana Mesa MD Primary Care Provider [phone] Sharlene Meléndez WHITE SHOE RAGGER Unavailable [phone] Sharlene Meléndez WHITE SHOE RAGGER Unavailable [phone] Lissette Riley Unavailable No, Physician Primary Care Provider [phone] Paulette Prieto TOP AND SEAT COVER FITTER Primary Care Provider [phone] Meredith Aburto TOP AND SEAT COVER FITTER Primary Care Provi arlette No, Physician Primary Care Provider [phone] Encounter Details Date Type Department Care Team (Latest Contact Info) Description 12/25/2017 Orders Only [facility] ProviderDwayne MD [address] [place] [address] Social History Tobacco Use Types Packs/Day Years Used Date Smoking Tobacco: Never Assessed Alcohol Use Standard Drinks/Week Comments Yes 0 (1 standard drink = 0.6 oz pur e alcohol) Comments Unknown Sex and Gender Information Value Date Recorded Sex Assigned at Not on file Legal Sex Female 9:08 AM CAFE LEAD Gender Identity Female 06/25/2019 7:13 AM CDT Sexual Orientation Not on file documented as of this encounter Plan of Treatment Not on file documented as of this encounter Procedures Procedure Name Priority Date/Time Associated Diagnosis Comments SCAN - LABS 12/25/2017 12:00 AM CAFE LEAD documented in this encounter Results * SCAN - LABS (12/25/2017 12:00 AM CAFE LEAD) Narrative 12/25/2017 12:00 AM CAFE LEAD Ordered by an unspecified provider. us Historical Provider MD Final Res ult documented in this encounter Visit Diagnoses Not on filedocumented in this encounter Additional Health Concerns Infection Onset Date Last Indicated Resolved Time C. difficile Comment:No further diarrhea 04/18/2017 04/17/2017 12/30/2021 2 :39 PM CAFE LEAD COVID: Suspected 07/05/2020 07/05/2020 07/19/2020 3:05 AM CDT COVID: Suspected 07/01/2021 07/01/2021 07/01/2021 2:38 PM CDT COVID: Suspected 07/01/2021 07/01/2021 07/01/2021 9:10 PM CDT COVID19 07/01/2021 07/01/2021 07/15/2021 3:05 AM CDT COVID: Recovered Comment:Added based on recent COVID infection. 07/15/2021 07/15/2021 11/12/2021 3:[address] COVID: Suspected 11/28/2021 11/28/2021 11/28/2021 7:00 PM CAFE LEAD COVID19 11/28/2021 11/28/2021 12/12/2021 3:05 AM CAFE LEAD COVID: Recovered Comment:Added based on recent COVID infection. 12/12/2021 12/12/2021 04/11/2022 3:05 AM C DT COVID: Suspected 07/05/2022 07/05/2022 07/05/2022 10:39 PM CDT MRSA 07/06/2022 07/06/2022 01/02/2023 3:05 AM CAFE LEAD COVID19 12/02/2022 12/02/2022 12/13/2022 3:05 AM CAFE LEAD COVID: Recovered Comment:Added based on recent COVID infection. 12/13/2022 12/15/2022 03/13/2023 3:05 AM C DT Exposure, COVID-19 Comment:No direct exposure. Pt in COVID recovery window. No concern for new infection. Ana Aguilera 01/15/2023 Added automatically based on COVID19 lab answers indicating exposure risk 01/14/2023 01/14/2023 01/15/2023 10:17 AM CAFE LEAD COVID: Suspected 01/14/2023 01/14/2023 01/14/2023 6:42 PM CAFE LEAD Human metapneumovirus, conta ct + droplet 01/14/2023 01/14/2023 01/21/2023 3:[address] COVID: Suspected 01/30/2023 01/30/2023 01/30/2023 10:06 PM CAFE LEAD documented as of this encounter Care Teams Pharmacy Grad Intern Relationship Specialty Start Date End Date Juana Mesa MD [address] [facility] [address] [address] PCP - General 11/26/17 10/26/18 No, Physician PCP - General 06/20/22 06/21/22 Paulette Prieto, CARMEN [address] [place] [address] PCP - General Nurse Practitioner 06/22/22 08/16/23 Meredith Aburto, CARMEN [address] [place] [address] PCP - General Family Medicine 08/17/23 09/11/24 No, Physician PCP - General 09/12/24 Sharlene Meléndez LPN [address] [facility] [address] [place] [address] Clinical Product Specialist 07/02/18 07/02/18 Sharlene Meléndez LPN [address] [facility] [address] [place] [address] Clinical Product Specialist 11/05/19 11/05/19 Lissette Riley [address] [place] [address] ACO Care Master Deputy [address] Security 01/15/20 01/15/20 documented as of this encounter
--- OUTSIDE RECORDS SUMMARY | 2024-12-22 11:45 | XMS_ITS | Encounter Summary ---
Author Organization [facility] Address [address] [facility] [address] [place] [address] Phone Care Team Providers Care Territory Outside Sales Manager Name Role Phone Dariel De Souza MD Primary Care Provider [phone] Bebo Hansen MD Primary Care Provider Juana Mesa MD Primary Care Provider [phone] Juana Mesa MD Primary Care Provider [phone] Sharlene Meléndez LPN Unavailable [phone] Sharlene Meléndez LPN Unavailable [phone] Lissette Riley Unavailable No, Physician Primary Care Provider Paulette Prieto SPORTS MEDICINE SPECIALIST Primary Care Provider [phone] Meredith Aburto SPORTS MEDICINE SPECIALIST Primary Care Provi arlette No, Physician Primary Care Provider [phone] Encounter Details Date Type Department Care Team (Late st Contact Info) Description 02/04/2015 Orders Only [facility] Provider, MD Dwayne [address] [place] [address] Social History Tobacco Use Types Packs/Day Years Used Date Smoking Tobacco: Never Assessed Alcohol Use Standard Drinks/Week Comments Yes 0 (1 standard drink = 0.6 oz pur e alcohol) Comments Unknown Sex and Gender Information Value Date Recorded Sex Assigned at Not on file Legal Sex Female 9:08 AM MEDICAL SONOGRAPHER Gender Identity Female 06/25/2019 7:13 AM CDT Sexual Orientation Not on file documented as of this encounter Plan of Treatment Not on file documented as of this encounter Procedures Procedure Name Priority Date/Time Associated Diagnosis Comments CARDIOLOGY REPORT 02/04/2015 documented in this encounter Results * CARDIOLOGY REPORT (02/04/2015) Anatomical Region Laterality Modality Other Narrative 02/04/2015 Ordered by an unspecified provider. Historical Provider [facility] CARDIAC SERVICES STUART DONAHUE Final Result documented in this encounter Visit Diagnoses Not on filedocumented in this encounter Additional Health Concerns Infection Onset Date Last Indicated Resolved Time C. difficile Comment:No further diarrhea 04/18/2017 04/17/2017 12/30/2021 2 :39 PM MEDICAL SONOGRAPHER COVID: Suspected 07/05/2020 07/05/2020 07/19/2020 3:05 AM CDT COVID: Suspected 07/01/2021 07/01/2021 07/01/2021 2:38 PM CDT COVID: Suspected 07/01/2021 07/01/2021 07/01/2021 9:10 PM CDT COVID19 07/01/2021 07/01/2021 07/15/2021 3:05 AM CDT COVID: Recovered Comment:Added based on recent COVID infection. 07/15/2021 07/15/2021 11/12/2021 3:[address] COVID: Suspected 11/28/2021 11/28/2021 11/28/2021 7:00 PM MEDICAL SONOGRAPHER COVID19 11/28/2021 11/28/2021 12/12/2021 3:05 AM MEDICAL SONOGRAPHER COVID: Recovered Comment:Added based on recent COVID infection. 12/12/2021 12/12/2021 04/11/2022 3:05 AM C DT COVID: Suspected 07/05/2022 07/05/2022 07/05/2022 10:39 PM CDT MRSA 07/06/2022 07/06/2022 01/02/2023 3:05 AM MEDICAL SONOGRAPHER COVID19 12/02/2022 12/02/2022 12/13/2022 3:05 AM MEDICAL SONOGRAPHER COVID: Recovered Comment:Added based on recent COVID infection. 12/13/2022 12/15/2022 03/13/2023 3:05 AM C DT Exposure, COVID-19 Comment:No direct exposure. Pt in COVID recovery window. No concern for new infection. Ana Aguilera 01/15/2023 Added automatically based on COVID19 lab answers indicating exposure risk 01/14/2023 01/14/2023 01/15/2023 10:17 AM MEDICAL SONOGRAPHER COVID: Suspected 01/14/2023 01/14/2023 01/14/2023 6:42 PM MEDICAL SONOGRAPHER Human metapneumovirus, conta ct + droplet 01/14/2023 01/14/2023 01/21/2023 3:[address] COVID: Suspected 01/30/2023 01/30/2023 01/30/2023 10:06 PM MEDICAL SONOGRAPHER documented as of this encounter Care Teams Territory Outside Sales Manager Relationship Specialty Start Date End Date Dariel De Souza MD [address] [address] PCP - General 11/06/07 06/14/17 Bebo Hansen MD [address] [place] [address] PCP - General 06/15/17 10/16/17 Juana Mesa MD [address] [place] [address] PCP - General 10/17/17 11/25/17 [place] [address] [place] [address] [place] [address] PCP - General 11/26/17 10/26/18 No, Physician PCP - General 06/20/22 06/21/22 Paulette Prieto, CARMEN [address] [place] [address] PCP - General Nurse Practitioner 06/22/22 08/16/23 Meredith Aburto, CARMEN [address] [facility] [place] [address] PCP - General Family Medicine 08/17/23 09/11/24 No, Physician PCP - General 09/12/24 Sharlene Meléndez LPN [address] [facility] [address] [place] [address] Cardiac/Vascular Sonographer 07/02/18 07/02/18 Sharlene Meléndez LPN [address] [facility] [address] [place] [address] Cardiac/Vascular Sonographer 11/05/19 11/05/19 Lissette Riley [address] [place] [address] ACO Care Home Care Music Therapist 01/15/20 01/15/20 documented as of this encounter
--- OUTSIDE RECORDS SUMMARY | 2024-12-22 11:45 | XMS_ITS | Encounter Summary ---
Author Organization [facility] Facility Care Team Providers Care Environmental Maintenance Worker Name Role Phone Dariel De Souza MD Primary Care Provider [phone] Bebo Hansen MD Primary Care Provider [phone] Juana Mesa MD Primary Care Provider [phone] Juana Mesa MD Primary Care Provider [phone] Sharlene Meléndez LPN Unavailable [phone] Sharlene Meléndez LPN Unavailable [phone] Lissette Riley Unavailable No, Physician Primary Care Provider [phone] Paulette Prieto LINSEED OIL ORDER FILLER Primary Care Provider [phone] Meredith Aburto LINSEED OIL ORDER FILLER Primary Care Provi arlette No, Physician Primary Care Provider [phone] Encounter Details Date Type Department Care Team (Latest Contact Info) Description 03/26/2017 Orders Only [facility] Provider, MD Dwayne [address] [place] [address] Social History Tobacco Use Types Packs/Day Years Used Date Smoking Tobacco: Never Assessed Alcohol Use Standard Drinks/Week Comments Yes 0 (1 standard drink = 0.6 oz pur e alcohol) Comments Unknown Sex and Gender Information Value Date Recorded Sex Assigned at Not on file Legal Sex Female 9:08 AM EXPRESSIVE THERAPIST Gender Identity Female 06/25/2019 7:13 AM CDT Sexual Orientation Not on file documented as of this encounter Plan of Treatment Not on file documented as of this encounter Procedures Procedure Name Priority Date/Time Associated Diagnosis Comments PROCEDURE - RESULT 03/26/2017 12 :00 AM CDT documented in this encounter Results * PROCEDURE - RESULT (03/26/2017 12:00 AM CDT) Narrative 03/26/2017 12:00 AM CDT Ordered by an unspecified provider. us Historical Provider Final Res ult documented in this encounter Visit Diagnoses Not on filedocumented in this encounter Additional Health Concerns Infection Onset Date Last Indicated Resolved Time C. difficile Comment:No further diarrhea 04/18/2017 04/17/2017 12/30/2021 2 :39 PM EXPRESSIVE THERAPIST COVID: Suspected 07/05/2020 07/05/2020 07/19/2020 3:05 AM CDT COVID: Suspected 07/01/2021 07/01/2021 07/01/2021 2:38 PM CDT COVID: Suspected 07/01/2021 07/01/2021 07/01/2021 9:10 PM CDT COVID19 07/01/2021 07/01/2021 07/15/2021 3:05 AM CDT COVID: Recovered Comment:Added based on recent COVID infection. 07/15/2021 07/15/2021 11/12/2021 3:[address] COVID: Suspected 11/28/2021 11/28/2021 11/28/2021 7:00 PM EXPRESSIVE THERAPIST COVID19 11/28/2021 11/28/2021 12/12/2021 3:05 AM EXPRESSIVE THERAPIST COVID: Recovered Comment:Added based on recent COVID infection. 12/12/2021 12/12/2021 04/11/2022 3:05 AM C DT COVID: Suspected 07/05/2022 07/05/2022 07/05/2022 10:39 PM CDT MRSA 07/06/2022 07/06/2022 01/02/2023 3:05 AM EXPRESSIVE THERAPIST COVID19 12/02/2022 12/02/2022 12/13/2022 3:05 AM EXPRESSIVE THERAPIST COVID: Recovered Comment:Added based on recent COVID infection. 12/13/2022 12/15/2022 03/13/2023 3:05 AM C DT Exposure, COVID-19 Comment:No direct exposure. Pt in COVID recovery window. No concern for new infection. Ana Aguilera 01/15/2023 Added automatically based on COVID19 lab answers indicating exposure risk 01/14/2023 01/14/2023 01/15/2023 10:17 AM EXPRESSIVE THERAPIST COVID: Suspected 01/14/2023 01/14/2023 01/14/2023 6:42 PM EXPRESSIVE THERAPIST Human metapneumovirus, conta ct + droplet 01/14/2023 01/14/2023 01/21/2023 3:[address] COVID: Suspected 01/30/2023 01/30/2023 01/30/2023 10:06 PM EXPRESSIVE THERAPIST documented as of this encounter Care Teams Environmental Maintenance Worker Relationship Specialty Start Date End Date Dariel De Souza MD [address] [address] PCP - General 11/06/07 06/14/17 Bebo Hansen MD [address] [place] [address] [address] [place] [address] PCP - General 06/15/17 10/16/17 [place] [address] [place] [address] [address] [place] [address] PCP - General 10/17/17 11/25/17 Juana Mesa MD [address] [address] PCP - General 11/26/17 10/26/18 No, Physician PCP - General 06/20/22 06/21/22 Paulette Prieto, CARMEN [address] [place] [address] PCP - General Nurse Practitioner 06/22/22 08/16/23 Meredith Aburto NP [address] [place] [address] [place] [address] PCP - General Family Medicine 08/17/23 09/11/24 No, Physician PCP - General 09/12/24 Sharlene Meléndez LPN [address] [facility] [address] [place] [address] Heel Curver 07/02/18 07/02/18 Sharlene Meléndez LPN [address] [facility] [address] [facility] [address] [place] [address] Heel Curver 11/05/19 11/05/19 Lissette Riley [address] [place] [address] ACO Care Engineering Consultant 01/15/20 01/15/20 documented as of this encounter
--- OUTSIDE RECORDS SUMMARY | 2024-12-22 11:45 | XMS_ITS | Encounter Summary ---
Author Organization [facility] Healthcare Address [address] [place] [address] Care Team Providers Care Business Development Representative Name Role Phone Meredith Aburto SAUSAGE STRINGER Primary Care Provi arlette No, Physician Primary Care Provider [phone] Encounter Details Date Type Department Care Team (Late st Contact Info) Description 04/22/2024 Orders Only [facility] Management [address] [place] [address] Scanning, Provider Social History Tobacco Use [...] often do you attend chur ch or sikh services? More than 4 times per year 02/02/2023 Do you belong to any clubs o r organizations such as religion groups, unions, fraternal or athletic groups, or [...] place to sleep or slept in a fci (including now)? No 02/02/2023 Personal Safety Answer Date Recorded Have you ever been in or are you currently in a harmful physical or emotional relationship or is someone making you feel afraid or unsafe? Denies 04/02/2024 Comments No Sex and Gender Information Value Date Recorded Sex Assigned at Not on file Legal Sex Female 9:08 AM DIGITAL MEDIA ASSOCIATE Gender Identity Female 06/25/2019 7:13 AM CDT Sexual Orientation Not on file documented as of this encounter Plan of Treatment Not on file documented as of this encounter Procedures Procedure Name Priority Date/Time Associated Diagnosis Comments SCAN - LABS 04/22/2024 documented in this encounter Results * SCAN - LABS (04/22/2024) us Provider Scanning Final Result documented in this encounter Visit Diagnoses Not on filedocumented in this encounter Care Teams Business Development Representative Relationship Specialty Start Date End Date Meredith Aburto NP [address] [place] [address] [place] [address] PCP - General Family Medicine 08/17/23 09/11/24 No, Physician PCP - General 09/12/24 documented as of this encounter
--- OUTSIDE RECORDS SUMMARY | 2024-12-22 11:45 | XMS_ITS | Encounter Summary ---
Author Organization [facility] Healthcare Address [address] [place] [address] Care Team Providers Care Concrete Smoother Name Role Phone Meredith Aburto LOCKSTITCH SHOULDER JOINER Primary Care Provi arlette No, Physician Primary Care Provider [phone] Encounter Details Date Type Department Care Team (Late st Contact Info) Description 12/26/2023 Orders Only [facility] Health Information Management [address] [place] [address] Scanning, Provider Social History Tobacco Use [...] often do you attend chur ch or pentecostal services? More than 4 times per year 02/02/2023 Do you belong to any clubs o r organizations such as catholic groups, unions, fraternal or athletic groups, or [...] place to sleep or slept in a mcc (including now)? No 02/02/2023 Personal Safety Answer Date Recorded Getting School Help Needed Denies 11/12 Comments No Sex and Gender Information Value Date Recorded Sex Assigned at Not on file Legal Sex Female 9:08 AM IT SALES CONSULTANT Gender Identity Female 06/25/2019 7:13 AM CDT Sexual Orientation Not on file documented as of this encounter Plan of Treatment Not on file documented as of this encounter Procedures Procedure Name Priority Date/Time Associated Diagnosis Comments SCAN - LABS 12/25/2023 documented in this encounter Results * SCAN - LABS (12/25/2023) us Provider Scanning Edited Result - Final documented in this encounter Visit Diagnoses Not on filedocumented in this encounter Care Teams Concrete Smoother Relationship Specialty Start Date End Date Meredith Aburto NP [address] [facility] [address] PCP - General Family Medicine 08/17/23 09/11/24 No, Physician PCP - General 09/12/24 documented as of this encounter
--- OUTSIDE RECORDS SUMMARY | 2024-12-22 11:45 | XMS_ITS ---
Author Organization [facility] Address [address] [place], [place] [address] Care Team Providers Care Grief Counsellor Name Role Phone LINDA PACHECO Unavailable [phone] Stone, Crystal Unavailable Unavailable REASON FOR VISIT *General care Encounters Encounter Location Date Provider Diagnosis [facility] [place] [address] [place], [place] [id number] 06/09/2024 LINDA PACHECO Plan Of Treatment Next Appt Details Provider Name:LINDA PACHECO, 02:30:00 PM, [address], [place], [place], [id number], Progress Notes * MAI MCCULLOUGH KDOB:[birth year] (79 yo F)Acc No.[id number]:06/09/2024 Patient:?MAI MCCULLOUGH Provider:?Linda Pacheco DPM :1945???Age:79 Y???Sex:Female D ate:06/09/2024 Address:[address] [place], [place] [id number] Subjective: * Chief Complaints: * ???1. *General care. * Medical History:? Objective: * Vitals:? Assessment: Plan: * Treatment: * Billing Information: * Visit Code:? * Procedure Codes:? * Electronic signature of LINDA PACHECO DPM on 12/22/2024 at 11:45 AM POISON INFORMATION SPECIALIST Sign off status: Pending * Provider:?Linda Pacheco DPM Date:?06/09/20 24 Generated for Mame mcmullen/Smith/Karissa on:?12/22/2024 11:45 AM POISON INFORMATION SPECIALIST
--- OUTSIDE RECORDS SUMMARY | 2024-12-22 11:45 | XMS_ITS | Encounter Summary ---
Author Organization [facility] Address [address] [facility] [address] [place] [address] Phone Care Team Providers Care Head Of Data Name Role Phone Dariel De Souza MD Primary Care Provider [phone] Bebo Hansen MD Primary Care Provider [phone] Juana Mesa MD Primary Care Provider [phone] Juana Mesa MD Primary Care Provider [phone] Sharlene Meléndez LPN Unavailable [phone] Sharlene Meléndez LPN Unavailable [phone] Lissette Riley Unavailable No, Physician Primary Care Provider [phone] Paulette Prieto CHAIR MENDER Primary Care Provider [phone] Meredith Aburto CHAIR MENDER Primary Care Provi arlette No, Physician Primary Care Provider [phone] Encounter Details Date Type Department Care Team (Late st Contact Info) Description 06/01/2014 Orders Only [facility] Provider, MD Dwayne [address] [place] [address] Social History Tobacco Use Types Packs/Day Years Used Date Smoking Tobacco: Never Assessed Alcohol Use Standard Drinks/Week Comments Yes 0 (1 standard drink = 0.6 oz pur e alcohol) Comments Unknown Sex and Gender Information Value Date Recorded Sex Assigned at Not on file Legal Sex Female 9:08 AM MARBLE SETTER Gender Identity Female 06/25/2019 7:13 AM CDT Sexual Orientation Not on file documented as of this encounter Plan of Treatment Not on file documented as of this encounter Procedures Procedure Name Priority Date/Time Associated Diagnosis Comments CARDIOLOGY REPORT 06/01/2014 documented in this encounter Results * CARDIOLOGY REPORT (06/01/2014) Anatomical Region Laterality Modality Other Narrative 06/01/2014 Ordered by an unspecified provider. Historical Provider CV CARDIAC SERVICES STUART DONAHUE Final Result documented in this encounter Visit Diagnoses Not on filedocumented in this encounter Additional Health Concerns Infection Onset Date Last Indicated Resolved Time C. difficile Comment:No further diarrhea 04/18/2017 04/17/2017 12/30/2021 2 :39 PM MARBLE SETTER COVID: Suspected 07/05/2020 07/05/2020 07/19/2020 3:05 AM CDT COVID: Suspected 07/01/2021 07/01/2021 07/01/2021 2:38 PM CDT COVID: Suspected 07/01/2021 07/01/2021 07/01/2021 9:10 PM CDT COVID19 07/01/2021 07/01/2021 07/15/2021 3:05 AM CDT COVID: Recovered Comment:Added based on recent COVID infection. 07/15/2021 07/15/2021 11/12/2021 3:[address] COVID: Suspected 11/28/2021 11/28/2021 11/28/2021 7:00 PM MARBLE SETTER COVID19 11/28/2021 11/28/2021 12/12/2021 3:05 AM MARBLE SETTER COVID: Recovered Comment:Added based on recent COVID infection. 12/12/2021 12/12/2021 04/11/2022 3:05 AM C DT COVID: Suspected 07/05/2022 07/05/2022 07/05/2022 10:39 PM CDT MRSA 07/06/2022 07/06/2022 01/02/2023 3:05 AM MARBLE SETTER COVID19 12/02/2022 12/02/2022 12/13/2022 3:05 AM MARBLE SETTER COVID: Recovered Comment:Added based on recent COVID infection. 12/13/2022 12/15/2022 03/13/2023 3:05 AM C DT Exposure, COVID-19 Comment:No direct exposure. Pt in COVID recovery window. No concern for new infection. Ana Aguilera 01/15/2023 Added automatically based on COVID19 lab answers indicating exposure risk 01/14/2023 01/14/2023 01/15/2023 10:17 AM MARBLE SETTER COVID: Suspected 01/14/2023 01/14/2023 01/14/2023 6:42 PM MARBLE SETTER Human metapneumovirus, conta ct + droplet 01/14/2023 01/14/2023 01/21/2023 3:[address] COVID: Suspected 01/30/2023 01/30/2023 01/30/2023 10:06 PM MARBLE SETTER documented as of this encounter Care Teams Head Of Data Relationship Specialty Start Date End Date Dariel De Souza MD [address] [address] PCP - General 11/06/07 06/14/17 Bebo Hansen MD [address] [place] [address] PCP - General 06/15/17 10/16/17 Juana Mesa MD [address] [place] [address] PCP - General 10/17/17 11/25/17 [place] [address] [place] [address] [place] [address] PCP - General 11/26/17 10/26/18 No, Physician PCP - General 06/20/22 06/21/22 Paulette Prieto, CARMEN [address] [place] [address] PCP - General Nurse Practitioner 06/22/22 08/16/23 Meredith Aburto, CARMEN [address] [place] [address] PCP - General Family Medicine 08/17/23 09/11/24 No, Physician PCP - General 09/12/24 Sharlene Meléndez LPN [address] [facility] [facility] [address] [place] [address] Economic Forecaster 07/02/18 07/02/18 Sharlene Meléndez LPN [address] [place] [address] Economic Forecaster 11/05/19 11/05/19 Lissette Riley [address] [place] [address] ACO Care Bus Company Manager 01/15/20 01/15/20 documented as of this encounter
--- OUTSIDE RECORDS SUMMARY | 2024-12-22 11:45 | XMS_ITS | Encounter Summary ---
Author Organization [facility] Address [address] [facility] [place] [address] [place] [address] Phone Care Team Providers Care Dining Room Cashier Name Role Phone Dariel De Souza MD Primary Care Provider Bebo Hansen MD Primary Care Provider Juana Mesa MD Primary Care Provider [phone] Juana Mesa MD Primary Care Provider [phone] Sharlene Meléndez LPN Unavailable [phone] Sharlene Meléndez LPN Unavailable [phone] Lissette Riley Unavailable No, Physician Primary Care Provider [phone] Paulette Prieto SHEET METAL WORKER SUPERVISOR Primary Care Provider [phone] Meredith Aburto SHEET METAL WORKER SUPERVISOR Primary Care Provi arlette No, Physician Primary Care Provider Encounter Details Date Type Department Care Team (Late st Contact Info) Description 11/02/2015 Orders Only [facility]IN[facility] Provider, MD Dwayne [address] [place] [id number] Social History Tobacco Use Types Packs/Day Years Used Date Smoking Tobacco: Never Assessed Alcohol Use Standard Drinks/Week Comments Yes 0 (1 standard drink = 0.6 oz pur e alcohol) Comments Unknown Sex and Gender Information Value Date Recorded Sex Assigned at Not on file Legal Sex Female 9:08 AM PATHOLOGY TECHNOLOGIST Gender Identity Female 06/25/2019 7:13 AM CDT Sexual Orientation Not on file documented as of this encounter Plan of Treatment Not on file documented as of this encounter Procedures Procedure Name Priority Date/Time Associated Diagnosis Comments CARDIOLOGY REPORT 11/02/2015 CARDIOLOGY REPORT 11/02/2015 documented in this encounter Results * CARDIOLOGY REPORT (11/02/2015) Anatomical Region Laterality Modality Other Narrative 11/02/2015 Ordered by an unspecified provider. us Historical Provider CV CARDIAC SERVICES PROCE DURCAITLIN Final Result * CARDIOLOGY REPORT (11/02/2015) Anatomical Region Laterality Modality Other Narrative 11/02/2015 Ordered by an unspecified provider. us Historical Provider CV CARDIAC SERVICES PROCE DURES Final Result documented in this encounter Visit Diagnoses Not on filedocumented in this encounter Additional Health Concerns Infection Onset Date Last Indicated Resolved Time C. difficile Comment:No further diarrhea 04/18/2017 04/17/2017 12/30/2021 2 :39 PM PATHOLOGY TECHNOLOGIST COVID: Suspected 07/05/2020 07/05/2020 07/19/2020 3:05 AM CDT COVID: Suspected 07/01/2021 07/01/2021 07/01/2021 2:38 PM CDT COVID: Suspected 07/01/2021 07/01/2021 07/01/2021 9:10 PM CDT COVID19 07/01/2021 07/01/2021 07/15/2021 3:05 AM CDT COVID: Recovered Comment:Added based on recent COVID infection. 07/15/2021 07/15/2021 11/12/2021 3:[address] COVID: Suspected 11/28/2021 11/28/2021 11/28/2021 7:00 PM PATHOLOGY TECHNOLOGIST COVID19 11/28/2021 11/28/2021 12/12/2021 3:05 AM PATHOLOGY TECHNOLOGIST COVID: Recovered Comment:Added based on recent COVID infection. 12/12/2021 12/12/2021 04/11/2022 3:05 AM C DT COVID: Suspected 07/05/2022 07/05/2022 07/05/2022 10:39 PM CDT MRSA 07/06/2022 07/06/2022 01/02/2023 3:05 AM PATHOLOGY TECHNOLOGIST COVID19 12/02/2022 12/02/2022 12/13/2022 3:05 AM PATHOLOGY TECHNOLOGIST COVID: Recovered Comment:Added based on recent COVID infection. 12/13/2022 12/15/2022 03/13/2023 3:05 AM C DT Exposure, COVID-19 Comment:No direct exposure. Pt in COVID recovery window. No concern for new infection. Ana Aguilera 01/15/2023 Added automatically based on COVID19 lab answers indicating exposure risk 01/14/2023 01/14/2023 01/15/2023 10:17 AM PATHOLOGY TECHNOLOGIST COVID: Suspected 01/14/2023 01/14/2023 01/14/2023 6:42 PM PATHOLOGY TECHNOLOGIST Human metapneumovirus, conta ct + droplet 01/14/2023 01/14/2023 01/21/2023 3:[address] COVID: Suspected 01/30/2023 01/30/2023 01/30/2023 10:06 PM PATHOLOGY TECHNOLOGIST documented as of this encounter Care Teams Dining Room Cashier Relationship Specialty Start Date End Date Dariel De Souza MD [address] [facility] [address] [place] [address] PCP - General 11/06/07 06/14/17 Bebo Hansen MD [address] [facility] [address] [place] [address] PCP - General 06/15/17 10/16/17 Juana Mesa MD [address] [facility] [address] [place] [address] PCP - General 10/17/17 11/25/17 Juana Mesa MD [address] [facility] [address] [place] [address] PCP - General 11/26/17 10/26/18 No, Physician PCP - General 06/20/22 06/21/22 Paulette Prieto, CARMEN [address] [place] [address] PCP - General Nurse Practitioner 06/22/22 08/16/23 Meredith Aburto, CARMEN [address] [facility] [address] [facility] [place] [address] PCP - General Family Medicine 08/17/23 09/11/24 No, Physician PCP - General 09/12/24 Sharlene Meléndez LPN [address] [place] [address] [address] [place] [address] Gas Operator 07/02/18 07/02/18 Sharlene Meléndez LPN [address] [place] [address] [address] [place] [address] Gas Operator 11/05/19 11/05/19 Lissette Riley [address] [place] [address] ACO Care Process Consultant 01/15/20 01/15/20 documented as of this encounter
--- OUTSIDE RECORDS SUMMARY | 2024-12-22 11:45 | XMS_ITS | Encounter Summary ---
Author Organization [facility] Healthcare Address [address] [place] [address] Care Team Providers Care Supervisor Grading Name Role Phone Meredith Aburto GOLF CLUB MANAGER Primary Care Provi arlette No, Physician Primary Care Provider [phone] Encounter Details Date Type Department Care Team (Late st Contact Info) Description 12/31/2023 Orders Only [facility] Health Information Management [address] [place] [address] Scanning, Provider Social History Tobacco Use [...] often do you attend chur ch or roman catholic services? More than 4 times per year 02/02/2023 Do you belong to any clubs o r organizations such as faith groups, unions, fraternal or athletic groups, or [...] on file Legal Sex Female 9:08 AM SHOEMAKER CUSTOM Gender Identity Female 06/25/2019 7:13 AM CDT Sexual Orientation Not on file documented as of this encounter Plan of Treatment Not on file documented as of this encounter Procedures Procedure Name Priority Date/Time Associated Diagnosis Comments SCAN - LABS 12/31/2023 documented in this encounter Results * SCAN - LABS (12/31/2023) us Provider Scanning Final Result documented in this encounter Visit Diagnoses Not on filedocumented in this encounter Care Teams Supervisor Grading Relationship Specialty Start Date End Date Meredith Aburto NP [address] [place] [address] PCP - General Family Medicine 08/17/23 09/11/24 No, Physician PCP - General 09/12/24 documented as of this encounter
--- OUTSIDE RECORDS SUMMARY | 2024-12-22 11:45 | XMS_ITS | Encounter Summary ---
Author Organization [facility] Care Team Providers Care Ballpoint Pen Assembly Machine Operator Name Role Phone Juana Mesa MD Primary Care Provider [phone] Sharlene Meléndez LPN Unavailable Lissette Riley Unavailable No, Physician Primary Care Provider [phone] Paulette Prieto TRANSPORTATION MUSEUM HELPER Primary Care Provider [phone] Meredith Aburto TRANSPORTATION MUSEUM HELPER Primary Care Provi arlette No, Physician Primary Care Provider [phone] Encounter Details Date Type Department Care Team (Latest Contact Info) Description 08/14/2018 Orders Only [facility] CLINCONV ProviderDwayne MD [address] [place] [address] Social History Tobacco Use Types Packs/Day Years Used Date Smoking Tobacco: Former Smokeless Tobacco: Never Alcohol Use Standard Drinks/Week Comments Yes 0 (1 standard drink = 0.6 oz pur e alcohol) Comments Unknown Sex and Gender Information Value Date Recorded Sex Assigned at Not on file Legal Sex Female 9:08 AM MOLDING PLASTERER Gender Identity Female 06/25/2019 7:13 AM CDT Sexual Orientation Not on file documented as of this encounter Plan of Treatment Not on file documented as of this encounter Procedures Procedure Name Priority Date/Time Associated Diagnosis Comments CARDIOLOGY REPORT 08/19/2018 12: 00 AM CDT documented in this encounter Results * CARDIOLOGY REPORT (08/19/2018 12:00 AM CDT) Anatomical Region Laterality Modality Other Narrative 08/19/2018 12:00 AM CDT Ordered by an unspecified provider. us Historical Provider CV CARDIAC SERVICES STUART DONAHUE Final Result documented in this encounter Visit Diagnoses Not on filedocumented in this encounter Additional Health Concerns Infection Onset Date Last Indicated Resolved Time C. difficile Comment:No further diarrhea 04/18/2017 04/17/2017 12/30/2021 2 :39 PM MOLDING PLASTERER COVID: Suspected 07/05/2020 07/05/2020 07/19/2020 3:05 AM CDT COVID: Suspected 07/01/2021 07/01/2021 07/01/2021 2:38 PM CDT COVID: Suspected 07/01/2021 07/01/2021 07/01/2021 9:10 PM CDT COVID19 07/01/2021 07/01/2021 07/15/2021 3:05 AM CDT COVID: Recovered Comment:Added based on recent COVID infection. 07/15/2021 07/15/2021 11/12/2021 3:[address] COVID: Suspected 11/28/2021 11/28/2021 11/28/2021 7:00 PM MOLDING PLASTERER COVID19 11/28/2021 11/28/2021 12/12/2021 3:05 AM MOLDING PLASTERER COVID: Recovered Comment:Added based on recent COVID infection. 12/12/2021 12/12/2021 04/11/2022 3:05 AM C DT COVID: Suspected 07/05/2022 07/05/2022 07/05/2022 10:39 PM CDT MRSA 07/06/2022 07/06/2022 01/02/2023 3:05 AM MOLDING PLASTERER COVID19 12/02/2022 12/02/2022 12/13/2022 3:05 AM MOLDING PLASTERER COVID: Recovered Comment:Added based on recent COVID infection. 12/13/2022 12/15/2022 03/13/2023 3:05 AM C DT Exposure, COVID-19 Comment:No direct exposure. Pt in COVID recovery window. No concern for new infection. Ana Aguilera 01/15/2023 Added automatically based on COVID19 lab answers indicating exposure risk 01/14/2023 01/14/2023 01/15/2023 10:17 AM MOLDING PLASTERER COVID: Suspected 01/14/2023 01/14/2023 01/14/2023 6:42 PM MOLDING PLASTERER Human metapneumovirus, conta ct + droplet 01/14/2023 01/14/2023 01/21/2023 3:[address] COVID: Suspected 01/30/2023 01/30/2023 01/30/2023 10:06 PM MOLDING PLASTERER documented as of this encounter Care Teams Ballpoint Pen Assembly Machine Operator Relationship Specialty Start Date End Date Juana Mesa MD [address] [facility] [address] [place] [address] PCP - General 11/26/17 10/26/18 No, Physician PCP - General 06/20/22 06/21/22 Paulette Prieto, CARMEN [address] [place] [address] PCP - General Nurse Practitioner 06/22/22 08/16/23 Meredith Aburto, CARMEN [address] [place] [address] PCP - General Family Medicine 08/17/23 09/11/24 No, Physician PCP - General 09/12/24 Sharlene Meléndez, MARKETING/SALES PERSON [address] [facility] [address] [place] [address] Riding Silks Custodian 11/05/19 11/05/19 Lissette Riley [address] [facility] [address] [place] [address] ACO Care Photographer'S Model 01/15/20 01/15/20 documented as of this encounter
--- OUTSIDE RECORDS SUMMARY | 2024-12-22 11:45 | XMS_ITS | Patient Health Record ---
Author Organization [facility] Address [address] [place], [place] [address] Care Team Providers Care Dock Pumper Name Role Phone LINDA PACHECO Unavailable [phone] Stone, Crystal Unavailable Unavailable Allergies Allergen (clinical drug ingredient) Drug/Non Drug Allergy documented on EMR Reaction Allergy Type Onset Date Status codeine Codeine Unknown Drug Allergy 11/06/2012 active Reason For Referral No Information Medications Medication SIG (Take, Route, Frequency, Duration) Notes Start Date End Date Status Furosemide 40 MG Oral Tablet ORAL furosemide 40 MG Oral TabletOriginal Medicationfurosemide 40 MG Oral Tablet *Reorder from [employer] for eRx and Interaction Alerts* 2 Active Warfarin Sodium 10 MG Oral Tablet ORAL warfarin sodium 10 MG Oral TabletOriginal Medicationwarfarin sodium 10 MG Oral Tablet *Reorder from [employer] for eRx and Interaction Alerts* 2 Active isopropyl alcohol 0.7 ML/ML Medicated Pad isopropyl alcohol 0.7 ML/ML Medicated PadOriginal Medicationisopropyl alcohol 0.7 ML/ML Medicated Pad *Reorder from [employer] for eRx and Interaction Alerts* 2 05/29/20 29 Active metformin hydrochloride 1000 MG Oral Tablet ORAL metformin hydrochloride 1000 MG Oral TabletOriginal Medicationmetformin hydrochloride 1000 MG Oral Tablet *Reorder from [employer] for eRx and Interaction Alerts* 2 Active digoxin 0.125 MG Oral Tablet ORAL digoxin 0.125 MG Oral TabletOriginal Medicationdigoxin 0.125 MG Oral Tablet *Reorder from [facility] for eRx and Interaction Alerts* 2 Active insulin aspart, human 100 UNT/ML Injectable Solution [NovoLog] insulin aspart, human 100 UNT/ML Injectable Solution [NovoLog]Original Medicationinsulin aspart, human 100 UNT/ML Injectable Solution [NovoLog] *Reorder from [facility] for eRx and Interaction Alerts* 2 Active clobetasol propionate 0.0005 MG/MG Topical Ointment CUTANEOUS clobetasol propionate 0.0005 MG/MG Topical OintmentOriginal Medicationclobetasol propionate 0.0005 MG/MG Topical Ointment *Reorder from [facility] for eRx and Interaction Alerts* 3 Active colchicine 0.6 MG Oral Tablet [Colcrys] ORAL colchicine 0.6 MG Oral Tablet [Colcrys]Original Medicationcolchicine 0.6 MG Oral Tablet [Colcrys] *Reorder from [facility] for eRx and Interaction Alerts* 4 Active Carvedilol 12.5 MG Oral Tablet ORAL carvedilol 12.5 MG Oral TabletOriginal Medicationcarvedilol 12.5 MG Oral Tablet *Reorder from [facility] for eRx and Interaction Alerts* 2 Active ciprofloxacin 500 MG Oral Tablet [Cipro] ORAL ciprofloxacin 500 MG Oral Tablet [Cipro]Original Medicationciprofloxacin 500 MG Oral Tablet [Cipro] *Reorder from [facility] for eRx and Interaction Alerts* 7 Active Lisinopril 2.5 MG Oral Tablet ORAL lisinopril 2.5 MG Oral TabletOriginal Medicationlisinopril 2.5 MG Oral Tablet *Reorder from [facility] for eRx and Interaction Alerts* 2 Active Vital Signs Height-cm 167.64 cm 06/09/2024 Weight-kg 93.44 kg 06/09/2024 Height 66.00 in 06/09/2024 Weight 206 lbs 06/09/2024 BMI 33.25 kg/m2 06/09/2024 Encounters Encounter Location Date Provider Diagnosis [facility] [place] [address] [place] [id number] 01/21/2024 LINDA SNOOK 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 ; 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 ; Acquired keratosis [keratoderma] palmaris et plantaris L85.1 and Left foot pain M79.672 [facility] [place] [address] [place] [id number] 03/24/2024 LINDA PACHECO Tinea unguium B35.1 ; Pain in right toe(s) M79.674 ; Pain in left toe(s) M79.675 ; Atherosclerosis of [place] arteries of extremities with intermittent claudication, bilateral legs I70.213 and Type 2 diabetes mellitus with other circulatory complications E11.59 [facility] [place] [address] [place] [id number] 06/09/2024 LINDA PACHECO Tinea unguium B35.1 ; Pain in right toe(s) M79.674 ; Pain in left toe(s) M79.675 ; Atherosclerosis of [place] arteries of extremities with intermittent claudication, bilateral legs I70.213 and Type 2 diabetes mellitus with other circulatory complications E11.59 [facility] [place] [address] [place] [id number] 09/15/2024 LINDA PACHECO Tinea unguium B35.1 ; Pain in right foot M79.671 ; Pain in left foot M79.672 ; Atherosclerosis of [place]western [place] arteries of extremities with intermittent claudication, bilateral legs I70.213 and Acquired keratosis [keratoderma] palmaris et plantaris L85.1 [facility] [address] [facility] [address] [place], [place] [id number] 03/31/2024 LINDA PACHECO [facility] [place] [address] [place] [id number] 06/01/2024 Assessments Encounter Date Diagnosis (ICD Code) Assessment Notes Treatment Notes Treatment Clinical Notes Section Notes 01/21/2024 Type 2 diabetes mellitus with other circulatory complications (ICD-10 - E11.59) 01/21/2024 Non-pressure chronic ulcer of other part of left foot limited to breakdown of skin (ICD-10 - L97.521) Ulcer Resolved: The nonviable tissue from the uler site was debrided down to normal appearing tissue. Advised patient to monitor this area for recurrence. Patient may discontinue local wound care. Ulcer Plan of Care: The treatment goals are closure of the ulceration within an appropriate time frame. This will require regular debridements every 2 weeks until skin closure has been met. The patient will come in sooner than 2 weeks if the wound develops any signs of infection or deteriorates. The plan of care will be reviewed every month. If there is no change in the size of the wound, we will re evaluate debridement schedule, topical medications being used, as well as modify techniques for offloading the wound. RODRIGUEZ GRADING SYSTEM Grade 0: Pre-ulcerative Lesion, healed ulcers, presence of bone deformity Grade 1: Superficial Ulcer without subcutaneous tissue involvement Grade 2: Penetration through the subcutaneous tissue (may expose bone, tendon, ligament or joint capsule) Grade 3: Osteitis, abscess or osteomyelitis Grade 4: Gangrene of the foot. Based on clinical findings, the patient has the following grade ulceration: 0 03/24/2024 Tinea unguium (ICD-10 - B35.1) NAIL DEBRIDEMENT: Nails 1-5 Bilateral were debrided extensively with nail nippers and emery board, reducing length and girth to pink healthy tissue with any subungual debris and necrotic tissue removed 03/24/2024 Pain in right toe(s) (ICD-10 - M79.674) 06/09/2024 Tinea unguium (ICD-10 - B35.1) NAIL DEBRIDEMENT: Nails 1-5 Bilateral were debrided extensively with nail nippers and emery board, reducing length and girth to pink healthy tissue with any subungual debris and necrotic tissue removed 06/09/2024 Pain in right toe(s) (ICD-10 - M79.674) 09/15/2024 Tinea unguium (ICD-10 - B35.1) Nails 1-5 Bilateral were debrided extensively with nail nippers and emery board, reducing length and girth to pink healthy tissue with any subungual debris and necrotic tissue removed 09/15/2024 Pain in right foot (ICD-10 - M79.671) 09/15/2024 Pain in left foot (ICD-10 - M79.672) 06/09/2024 Pain in left toe(s) (ICD-10 - M79.675) 03/24/2024 Pain in left toe(s) (ICD-10 - M79.675) 01/21/2024 Acquired keratosis [keratoderma] palmaris et plantaris (ICD-10 - L85.1) Emollient: Recommend that the patient use an emollient such as [id number] Eucerin cream, Vanicream, or other lotion to the affected area. 01/21/2024 Left foot pain (ICD-10 - M79.672) 03/24/2024 Atherosclerosis of [place] arteries of extremities with intermittent claudication, bilateral legs (ICD-10 - I70.213) 09/15/2024 Atherosclerosis of [place]western [place] arteries of extremities with intermittent claudication, bilateral legs (ICD-10 - I70.213) 06/09/2024 Atherosclerosis of [place]western [place] arteries of extremities with intermittent claudication, bilateral legs (ICD-10 - I70.213) 09/15/2024 Acquired keratosis [keratoderma] palmaris et plantaris (ICD-10 - L85.1) A total of 1 corns or calluses, as described in the note above, were cut and pared utilizing a #15 blade 03/24/2024 Type 2 diabetes mellitus with other circulatory complications (ICD-10 - E11.59) Diabetic Foot Care: The patient was educated on diabetes and the lower extremity. The patient was instructed to check his feet daily to report any problems or signs of infection immediately. The patient was provided written information on Diabetic Foot Care as well as the Amputation Prevention Guide. 06/09/2024 Type 2 diabetes mellitus with other circulatory complications (ICD-10 - E11.59) Diabetic Foot Care: The patient was educated on diabetes and the lower extremity. The patient was instructed to check his feet daily to report any problems or signs of infection immediately. The patient was provided written information on Diabetic Foot Care as well as the Amputation Prevention Guide. 01/21/2024 Other 03/24/2024 Other Diabetic Shoes: The patient was given a prescription for diabetic shoes and inserts Plan Of Treatment Next Appt Details Provider Name:LINDA PACHECO, 02:30:00 PM, [address], [address], [phone], Insurance Providers Payer Name Payer Address Payer Phone Subscriber Number Group Number Insured Name Patient Relationship to Insured Coverage Start Date Coverage End Date Medicare Part B [place] [address] [place] [address] [id number] MAI HENDERSON CH Self - patient is the insured [facility] [address] [address] [place], [place] [id number] [phone] [id number] MAI HENDERSON CH Self - patient is the insured
--- OUTSIDE RECORDS SUMMARY | 2024-12-22 11:45 | XMS_ITS | Encounter Summary ---
Author Organization [facility] Address [address] [facility] [address] [place] [address] Phone Care Team Providers Care Starch Dumper Name Role Phone Dariel De Souza MD Primary Care Provider [phone] Bebo Hansen MD Primary Care Provider [phone] Juana Mesa MD Primary Care Provider [phone] Juana Mesa MD Primary Care Provider [phone] Sharlene Meléndez LPN Unavailable [phone] Sharlene Meléndez LPN Unavailable [phone] Lissette Riley Unavailable No, Physician Primary Care Provider [phone] Paulette Prieto [employer] Primary Care Provider [phone] Meredith Aburto [employer] Primary Care Provi arlette No, Physician Primary Care Provider [phone] Encounter Details Date Type Department Care Team (Late st Contact Info) Description 06/04/2015 Orders Only [facility] Provider, MD Dwayne [address] [place] [address] Social History Tobacco Use Types Packs/Day Years Used Date Smoking Tobacco: Never Assessed Alcohol Use Standard Drinks/Week Comments Yes 0 (1 standard drink = 0.6 oz pur e alcohol) Comments Unknown Sex and Gender Information Value Date Recorded Sex Assigned at Not on file Legal Sex Female 9:08 AM CATHETER BUILDER Gender Identity Female 06/25/2019 7:13 AM CDT Sexual Orientation Not on file documented as of this encounter Plan of Treatment Not on file documented as of this encounter Procedures Procedure Name Priority Date/Time Associated Diagnosis Comments CARDIOLOGY REPORT 06/04/2015 CARDIOLOGY REPORT 06/04/2015 documented in this encounter Results * CARDIOLOGY REPORT (06/04/2015) Anatomical Region Laterality Modality Other Narrative 06/04/2015 Ordered by an unspecified provider. us Historical Provider CV CARDIAC SERVICES PROCE DURES Final Result * CARDIOLOGY REPORT (06/04/2015) Anatomical Region Laterality Modality Other Narrative 06/04/2015 Ordered by an unspecified provider. us Historical Provider CV CARDIAC SERVICES PROCE DURES Final Result documented in this encounter Visit Diagnoses Not on filedocumented in this encounter Additional Health Concerns Infection Onset Date Last Indicated Resolved Time C. difficile Comment:No further diarrhea 04/18/2017 04/17/2017 12/30/2021 2 :39 PM CATHETER BUILDER COVID: Suspected 07/05/2020 07/05/2020 07/19/2020 3:05 AM CDT COVID: Suspected 07/01/2021 07/01/2021 07/01/2021 2:38 PM CDT COVID: Suspected 07/01/2021 07/01/2021 07/01/2021 9:10 PM CDT COVID19 07/01/2021 07/01/2021 07/15/2021 3:05 AM CDT COVID: Recovered Comment:Added based on recent COVID infection. 07/15/2021 07/15/2021 11/12/2021 3:[address] COVID: Suspected 11/28/2021 11/28/2021 11/28/2021 7:00 PM CATHETER BUILDER COVID19 11/28/2021 11/28/2021 12/12/2021 3:05 AM CATHETER BUILDER COVID: Recovered Comment:Added based on recent COVID infection. 12/12/2021 12/12/2021 04/11/2022 3:05 AM C DT COVID: Suspected 07/05/2022 07/05/2022 07/05/2022 10:39 PM CDT MRSA 07/06/2022 07/06/2022 01/02/2023 3:05 AM CATHETER BUILDER COVID19 12/02/2022 12/02/2022 12/13/2022 3:05 AM CATHETER BUILDER COVID: Recovered Comment:Added based on recent COVID infection. 12/13/2022 12/15/2022 03/13/2023 3:05 AM C DT Exposure, COVID-19 Comment:No direct exposure. Pt in COVID recovery window. No concern for new infection. Ana Aguilera 01/15/2023 Added automatically based on COVID19 lab answers indicating exposure risk 01/14/2023 01/14/2023 01/15/2023 10:17 AM CATHETER BUILDER COVID: Suspected 01/14/2023 01/14/2023 01/14/2023 6:42 PM CATHETER BUILDER Human metapneumovirus, conta ct + droplet 01/14/2023 01/14/2023 01/21/2023 3:[address] COVID: Suspected 01/30/2023 01/30/2023 01/30/2023 10:06 PM CATHETER BUILDER documented as of this encounter Care Teams Starch Dumper Relationship Specialty Start Date End Date Dariel De Souza MD [address] [facility] [address] [place] [address] PCP - General 11/06/07 06/14/17 Bebo Hansen MD [address] [facility] [address] [place] [address] PCP - General 06/15/17 10/16/17 Juana Mesa MD [address] [facility] [address] [place] [address] PCP - General 10/17/17 11/25/17 Juana Mesa MD [address] [facility] [address] [place] [address] PCP - General 11/26/17 10/26/18 No, Physician PCP - General 06/20/22 06/21/22 Paulette Prieto, CARMEN [address] [place] [address] PCP - General Nurse Practitioner 06/22/22 08/16/23 Meredith Aburto, CARMEN [address] [place] [address] PCP - General Family Medicine 08/17/23 09/11/24 No, Physician PCP - General 09/12/24 Sharlene Meléndez LPN [address] [place] [address] [address] [place] [address] Property Officer 07/02/18 07/02/18 Sharlene Meléndez LPN [address] [place] [address] [address] [place] [address] Property Officer 11/05/19 11/05/19 Lissette Riley [address] [place] [address] ACO Care Master [employer] 01/15/20 01/15/20 documented as of this encounter
--- OUTSIDE RECORDS SUMMARY | 2024-12-22 11:45 | XMS_ITS | Encounter Summary ---
Author Organization [facility] Address [address] [place] [address] Care Team Providers Care Assembler Movement Name Role Phone Juana Mesa MD Primary Care Provider Juana Mesa MD Primary Care Provider Juana Mesa MD Primary Care Provider Juana Mesa MD Primary Care Provider Juana Mesa MD Unavailable [phone] Juana Mesa MD Unavailable [phone] Juana Mesa MD Unavailable [phone] Juana Mesa MD Unavailable [phone] Juana Mesa MD Unavailable Juana Mesa MD Unavailable Ra Jara MD Unavailable Dada Lou MD Unavailable Unavailable Paco Holden MD Unavailable [phone] Paramjit Escobar MD Unavailable [phone] Encounter Details Date Type Department Care Team (Late st Contact Info) Description 07/22/2019 Lab Requisition [facility] Care DermPath Lab [address] [facility] [place] [address] Debbie Hall MD [address] [facility] [address] [place] [address] Social History Tobacco Use Types Packs/Day Years [...] 7.0 Result Component 6.4( 7 6:22 AM BULLET CASTING OPERATOR) No Kannan Lang documented as of this encounter Procedures Procedure Name Priority Date/Time Associated Diagnosis Comments DERMATOPATHOLOGY Routine 07/21/2019 12:0 0 AM CDT documented in this encounter Results * DERMATOPATHOLOGY (07/21/2019 12:00 AM CDT) Case Report Dermatopathology Report ? Case: [id number] ? Authorizing Provider: ??Debbie Hall MD ? Collected: ? 07/21/2019 12:00 AM ? Ordering Location: ? [facility] DermPath Lab ?Received: ?07/22/2019 11:25 AM ? Pathologist: ? Anamika Whatley MD ? Specimen: ?Skin, mid chin ? 9 12:25 PM CDT DERMATOPATHOLOGY LABORATORY Final Diagnosis Specimen A. 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 12:25 PM CDT DERMATOPATHOLOGY LABORATORY Gross Description Specimen A: Received is one formalin filled container labeled with the patient's name and designated mid chin. The specimen consists of a shave measuring [id number]. Jar 0. 12:25 PM CDT DERMATOPATHOLOGY LABORATORY Microscopic Description Specimen A. SKIN, mid chin: There is gently papillated epidermal hyperplasia, hypergranulosis, and laminated hyperorthokeratosis . Adjacent to these changes there is a dome-shaped portion of skin with psoriasiform epidermal hyperplasia, compact hyperkeratosis, and fibrosis of the papillary dermis associated with a superficial perivascular lymphohistiocytic infiltrate. 12:25 PM CDT DERMATOPATHOLOGY LABORATORY Disclaimer An external and internal positive and negative controls are appropriate for the histochemical, immunohistochemical and immunofluorescence stain(s) in this case (if any), except where stated explicitly. The performance characteristics of the stain(s) cited in this report were developed and its performance characteristic determined by the Dermatopathology Laboratory at [facility], directed by Dr. Ines Maldonado. These tests need not be, and therefore are not, approved by the [place] Food and Drug Administration. The tests are used for clinical purposes. Billing Codes Specimen Charges Stain Charges 41674 1 12:25 PM CDT DERMATOPATHOLOGY LABORATORY Embedded Images 12:25 PM CDT DERMATOPATHOLOGY LABORATORY Pathology/Cytolog y TISSUE SPECIMEN FROM SKIN / Unknown 07/21/2019 07/22/2019 11:25 AM CDT Debbie Hall MD LAB - PATHOLOGY/CYT OLOGY ORDERABLES DERMATOPATHOLOGY LABORATORY [facility] - Department of Dermatology [facility] [facility], 5th [place] [address], [facility] [phone] documented in this encounter Visit Diagnoses Not on filedocumented in this encounter Care Teams Assembler Movement Relationship Specialty Start Date End Date Juana Mesa MD [address] [facility] [place] [phone] PCP - General 07/21/19 12/21/19 Juana Mesa MD [address] [facility] [place] [address] PCP - General 12/22/19 06/30/20 Juana Mesa MD [facility] [facility] [place] [address] PCP - General 07/01/20 04/10/21 Juana Mesa MD [address] [facility] [address] [place] [address] PCP - General 04/11/21 Juana Mesa MD [facility] [facility] [place] [address] 04/11/21 Juana Mesa MD [facility] [facility] [place] [address] 07/01/20 Juana Mesa MD [facility] [facility] [place] [address] 12/22/19 Juana Mesa MD [facility] [facility] [place] [address] 07/21/19 Juana Mesa MD [address] [facility] [place] [address] 07/12/18 Juana Mesa MD [address] [facility] [place] [address] Family Medicine 05/03/18 Ra Jara MD [address] [place] [address] Endocrinology 04/21/14 [place] [address] [place] [address] Internal Medicine 11/09/15 Paco Holden MD [address] [place] [address] Neurology 05/11/16 Paramjit Escobar MD [address] [place] [address] Internal Medicine 11/23/16 documented as of this encounter
--- OUTSIDE RECORDS SUMMARY | 2024-12-22 11:45 | XMS_ITS ---
Author Organization [facility] Address [address] [place], [place] [address] Care Team Providers Care Patient Access Coordinator Name Role Phone LINDA PACHECO Unavailable [phone] Stone, Crystal Unavailable Unavailable Allergies Allergen (clinical drug ingredient) Drug/Non Drug Allergy documented on EMR Reaction Allergy Type Onset Date Status codeine Codeine Unknown Drug Allergy 11/06/2012 active REASON FOR VISIT Patient presents for at-risk foot care . The patient has painful toenails and calluses that are causing difficulty with ambulation and shoegear. The onset is gradual Medications Medication SIG (Take, Route, Frequency, Duration) Notes Start Date End Date Status Warfarin Sodium 10 MG Oral Tablet ORAL warfarin sodium 10 MG Oral TabletOriginal Medicationwarfarin sodium 10 MG Oral Tablet *Reorder from [facility] for eRx and Interaction Alerts* 2 Active clobetasol propionate 0.0005 MG/MG Topical Ointment CUTANEOUS clobetasol propionate 0.0005 MG/MG Topical OintmentOriginal Medicationclobetasol propionate 0.0005 MG/MG Topical Ointment *Reorder from [facility] for eRx and Interaction Alerts* 3 Active Carvedilol 12.5 MG Oral Tablet ORAL carvedilol 12.5 MG Oral TabletOriginal Medicationcarvedilol 12.5 MG Oral Tablet *Reorder from [facility] for eRx and Interaction Alerts* 2 Active ciprofloxacin 500 MG Oral Tablet [Cipro] ORAL ciprofloxacin 500 MG Oral Tablet [Cipro]Original Medicationciprofloxacin 500 MG Oral Tablet [Cipro] *Reorder from [facility] for eRx and Interaction Alerts* 7 Active Lisinopril 2.5 MG Oral Tablet ORAL lisinopril 2.5 MG Oral TabletOriginal Medicationlisinopril 2.5 MG Oral Tablet *Reorder from [facility] for eRx and Interaction Alerts* 2 Active Furosemide 40 MG Oral Tablet ORAL furosemide 40 MG Oral TabletOriginal Medicationfurosemide 40 MG Oral Tablet *Reorder from [facility] for eRx and Interaction Alerts* 2 Active isopropyl alcohol 0.7 ML/ML Medicated Pad isopropyl alcohol 0.7 ML/ML Medicated PadOriginal Medicationisopropyl alcohol 0.7 ML/ML Medicated Pad *Reorder from [facility] for eRx and Interaction Alerts* 2 05/29/20 29 Active metformin hydrochloride 1000 MG Oral Tablet ORAL metformin hydrochloride 1000 MG Oral TabletOriginal Medicationmetformin hydrochloride 1000 MG Oral Tablet *Reorder from [facility] for eRx and Interaction Alerts* 2 Active digoxin 0.125 MG Oral Tablet ORAL digoxin 0.125 MG Oral TabletOriginal Medicationdigoxin 0.125 MG Oral Tablet *Reorder from [facility] for eRx and Interaction Alerts* 2 Active insulin aspart, human 100 UNT/ML Injectable Solution [NovoLog] insulin aspart, human 100 UNT/ML Injectable Solution [NovoLog]Original Medicationinsulin aspart, human 100 UNT/ML Injectable Solution [NovoLog] *Reorder from [facility] for eRx and Interaction Alerts* 2 Active colchicine 0.6 MG Oral Tablet [Colcrys] ORAL colchicine 0.6 MG Oral Tablet [Colcrys]Original Medicationcolchicine 0.6 MG Oral Tablet [Colcrys] *Reorder from [facility] for eRx and Interaction Alerts* 4 Active Encounters Encounter Location Date Provider Diagnosis [facility] [place] [address] [place], [place] [address] 09/15/2024 LINDA SNOOK Tinea unguium B35.1 ; Pain in right foot M79.671 ; Pain in left foot M79.672 ; Atherosclerosis of [place] arteries of extremities with intermittent claudication, bilateral legs I70.213 and Acquired keratosis [keratoderma] palmaris et plantaris L85.1 Assessments Encounter Date Diagnosis (ICD Code) Assessment Notes Treatment Notes Treatment Clinical Notes Section Notes 09/15/2024 Tinea unguium (ICD-10 - B35.1) Nails 1-5 Bilateral were debrided extensively with nail nippers and emery board, reducing length and girth to pink healthy tissue with any subungual debris and necrotic tissue removed 09/15/2024 Pain in right foot (ICD-10 - M79.671) 09/15/2024 Pain in left foot (ICD-10 - M79.672) 09/15/2024 Atherosclerosis of [place] arteries of extremities with intermittent claudication, bilateral legs (ICD-10 - I70.213) 09/15/2024 Acquired keratosis [keratoderma] palmaris et plantaris (ICD-10 - L85.1) A total of 1 corns or calluses, as described in the note above, were cut and pared utilizing a #15 blade Plan Of Treatment Treatment Notes Assessment Notes Tinea unguium Nails 1-5 Bilateral were debrided extensively with nail nippers and emery board, reducing length and girth to pink healthy tissue with any subungual debris and necrotic tissue removed Acquired keratosis [keratode rma] palmaris et plantaris A total of 1 corns or calluses, as described in the note above, were cut and pared utilizing a #15 blade Next Appt Details Follow Up: 10 - 12 weeks, Re ason: At-Risk Foot care, sooner if problems develop. Provider Name:LINDA PACHECO, 02:30:00 PM, [address], [address], [phone], Progress Notes * MAI MCCULLOUGH KDOB:[birth year] (79 yo F)Acc No.[id number]:09/15/2024 Patient:?MAI MCCULLOUGH Provider:?Linda Pacheco DPM :1945???Age:79 Y???Sex:Female D ate:09/15/2024 Address:[address] [place], [place] [address] Subjective: * Chief Complaints: * ???1. Patient presents for a t-risk foot care . The patient has painful toenails and calluses that are causing difficulty with ambulation and shoegear. The onset is gradual. * HPI: ???HPI:?General care?Patient presents to the office for diabetic foot care. Patient states that their nails are thickened, elongated and painful. Patient states that it is aggravated by shoe gear. Onset is gradual., Patient is taking prescription blood thinners., Date last seen by Dr. Prieto was 08/2024., Initials mca.? * Medical History:? * Medications:?Taking Furosemi de 40 MG Oral Tablet ORAL , Notes to Pharmacist: furosemide 40 MG Oral TabletOriginal Medicationfurosemide 40 MG Oral Tablet *Reorder from [facility] for eRx and Interaction Alerts*, Taking Warfarin Sodium 10 MG Oral Tablet ORAL , Notes to Pharmacist: warfarin sodium 10 MG Oral TabletOriginal Medicationwarfarin sodium 10 MG Oral Tablet *Reorder from [facility] for eRx and Interaction Alerts*, Taking Lisinopril 2.5 MG Oral Tablet ORAL , Notes to Pharmacist: lisinopril 2.5 MG Oral TabletOriginal Medicationlisinopril 2.5 MG Oral Tablet *Reorder from [facility] for eRx and Interaction Alerts*, Taking Carvedilol 12.5 MG Oral Tablet ORAL , Notes to Pharmacist: carvedilol 12.5 MG Oral TabletOriginal Medicationcarvedilol 12.5 MG Oral Tablet *Reorder from [facility] for eRx and Interaction Alerts*, Taking ciprofloxacin 500 MG Oral Tablet [Cipro] ORAL , Notes to Pharmacist: ciprofloxacin 500 MG Oral Tablet [Cipro]Original Medicationciprofloxacin 500 MG Oral Tablet [Cipro] *Reorder from [facility] for eRx and Interaction Alerts*, Taking clobetasol propionate 0.0005 MG/MG Topical Ointment CUTANEOUS , Notes to Pharmacist: clobetasol propionate 0.0005 MG/MG Topical OintmentOriginal Medicationclobetasol propionate 0.0005 MG/MG Topical Ointment *Reorder from [facility] for eRx and Interaction Alerts*, Taking colchicine 0.6 MG Oral Tablet [Colcrys] ORAL , Notes to Pharmacist: colchicine 0.6 MG Oral Tablet [Colcrys]Original Medicationcolchicine 0.6 MG Oral Tablet [Colcrys] *Reorder from [facility] for eRx and Interaction Alerts*, Taking digoxin 0.125 MG Oral Tablet ORAL , Notes to Pharmacist: digoxin 0.125 MG Oral TabletOriginal Medicationdigoxin 0.125 MG Oral Tablet *Reorder from [facility] for eRx and Interaction Alerts*, Taking insulin aspart, human 100 UNT/ML Injectable Solution [NovoLog] , Notes to Pharmacist: insulin aspart, human 100 UNT/ML Injectable Solution [NovoLog]Original Medicationinsulin aspart, human 100 UNT/ML Injectable Solution [NovoLog] *Reorder from [facility] for eRx and Interaction Alerts*, Taking isopropyl alcohol 0.7 ML/ML Medicated Pad , stop date 05/29/2029, Notes to Pharmacist: isopropyl alcohol 0.7 ML/ML Medicated PadOriginal Medicationisopropyl alcohol 0.7 ML/ML Medicated Pad *Reorder from [facility] for eRx and Interaction Alerts*, Taking metformin hydrochloride 1000 MG Oral Tablet ORAL , Notes to Pharmacist: metformin hydrochloride 1000 MG Oral TabletOriginal Medicationmetformin hydrochloride 1000 MG Oral Tablet *Reorder from [facility] for eRx and Interaction Alerts*, Medication List reviewed and reconciled with the patient * Allergies:?Codeine: Allergy - Onset Date 11/06/2012. Objective: * Vitals:? * Examination: ???Physical Examination: ?General appearance:?Alert, pleasant, well-nourished and in no acute distress.?Dermatologic: ?Skin findings:?Skin is thin, atrophic and lacking pedal hair.?Hypertrophic / hyperkeratotic lesion:?distal tip of the left 4th digit.?Nail pathology:?Nails 1, 2, 3, 4, and 5 bilateral are elongated, thick, discolored, and dystrophic with subungual debris. They are painful to palpation.?Vascular: ?Dorsalis pedis pulse:?1/4?bilateral.?Posterior tibial pulse:?0/4 bilateral.?Capillary refill:?greater than 3 seconds.?Edema:?No edema bilateral.?Neurologic: ?Gross sensation?Grossly intact to light touch. There is negative Tinel's sign.?Musculoskeletal: ?Muscle Strength?Muscle strength is 5/5 in regards to dorsiflexion, plantarflexion, inversion, and eversion in bilateral lower extremities.? Assessment: * Assessment: 1.?Tinea unguium - B35.1 (Pr imary)???2.?Pain in right foot - M79.671???3.?Pain in left foot - M79.672???4.?Atherosclerosis of [place] arteries of extremities with intermittent claudication, bilateral legs - I70.213???5. Acquired keratosis [keratoderma] palmaris et plantaris - L85.1??? Plan: * Treatment: 2.?Acquired keratosis [kerat oderma] palmaris et plantaris? Notes: A total of 1 corns or calluses, as described in the note above, were cut and pared utilizing a #15 blade?? * Procedure Codes:?29961 TRIM SKIN LESION, Modifiers: Q8 , 68506 DEBRIDE NAIL, 6 OR MORE, Modifiers: 59 , Q8 * Follow Up:?10 - 12 weeks (Re ason: At-Risk Foot care, sooner if problems develop.) * Billing Information: * Visit Code:? * Procedure Codes:? 48585 TRIM SKIN LESION. Modifiers: Q8 20014 DEBRIDE NAIL, 6 OR MORE. Modifiers: 59, Q8 * Sign off status: Completed true * Provider:?Linda Pacheco DPM Date:?09/15/20 24 Generated for Mame mcmullen/Smith/Karissa on:?12/22/2024 11:44 AM WIREWORKER History and Physical Notes * HPI (History [...] Date last seen by Dr. Prieto was 08/2024., Initials mca Examination Category Sub-Category Detail Notes Category Not es Dermatologic Skin findings: Skin is thin, at rophic and lacking pedal hair Nail pathology: Nails 1, 2, 3, 4, an d 5 bilateral are elongated, thick, discolored, and dystrophic with subungual debris. They are painful to palpation Hypertrophic / hyperkeratotic lesion: di stal tip of the left 4th digit Neurologic Gross sensation Grossly intact t o light touch. There is negative Tinel's sign Vascular Dorsalis pedis pulse: 1/4 bilateral Edema: No edema bilateral Capillary refill: greater than 3 secon ds Posterior tibial pulse: 0/4 bilateral Physical Examination General appearance: Alert, pleasant, well-nourished and in no acute distress Musculoskeletal Muscle Strength Muscle strength is 5/5 in regards to dorsiflexion, plantarflexion, inversion, and eversion in bilateral lower extremities
--- OUTSIDE RECORDS SUMMARY | 2024-12-22 11:45 | XMS_ITS | Clinical Summary ---
Author Organization [facility] Address [address] [place] [address] Care Team Providers Care Bindery Manager Name Role Phone Juana Mesa MD Primary Care Provider [phone] Juana Mesa MD Unavailable Juana Mesa MD Unavailable Juana Mesa MD Unavailable Juana Mesa MD Unavailable Juana Mesa MD Unavailable Juana Mesa MD Unavailable Ra Jara MD Unavailable Dada Lou MD Unavailable Unavailable Paco Holden MD Unavailable [phone] Paramjit Escobar MD Unavailable [phone] Source Comments [facility],non-owned Affiliates and Associated Physician Practices is amultiple site organization consisting of ambulatory clinics and hospital sitesin [place], [place], [place] and [place]. This disclosure is being madepursuant to the Care Everywhere program and may not contain all information available regarding this patient. Last updated 18.[facility] Allergies Active Allergy Reactions Criticality Noted Date Comments Codeine Nausea 04/06/2009 nausea Medications * Be aware that medications may not be up to date on this document. Alwaysverify current medications with the patient. Medication Sig Dispensed Refills Start Date End Date Status One Touch Delica Lancets 1 Device once Reported on 11/23/2016 3 07/28/2015 Active ONETOUCH VERIO test strip 1 Strip once 3 07/28/2015 Active montelukast (SINGULAIR) 10 MG tablet Take 10 mg by mouth at bedtime Active INCRUSE ELLIPTA 62.5 MCG/INH inhaler Inhale 1 puff by mouth once daily 09/23/2018 Active BASAGLAR KWIKPEN (BASAGLAR) pen Inject 30 Units subcutaneously at bedtime 10/26/2018 Active losartan (COZAAR) 25 MG tablet TAKE 1 TABLET BY MOUTH ONCE DAILY 90 tablet 2 07/12/2020 Active doxycycline monohydrate 50 MG capsule Take 50 mg by mouth 2 times daily 07/12/2020 Active OZEMPIC, 1 MG/DOSE, 2 MG/1.5ML pen Inject 2 mg subcutaneously once daily 06/26/2020 Active alendronate (FOSAMAX) 70 MG tablet Take 70 mg by mouth every 7 days 07/05/2020 Active allopurinol (ZYLOPRIM) 300 MG tablet Take 300 mg by mouth once daily 07/05/2020 Active atorvastatin (LIPITOR) 10 MG tablet Take 10 mg by mouth once daily 07/22/2020 Active budesonide-formot maria victoria (SYMBICORT) 160-4.5 MCG/ACT inhaler Inhale 2 puffs by mouth 2 times daily 02/09/2020 Active metFORMIN (GLUCOPHAGE) 500 MG tablet Take 500 mg by mouth 2 times daily with morning and evening meal 07/05/2020 Active insulin glargine (LANTUS) pen Inject 33 Units subcutaneously once daily 10/16/2019 Active Glucose Blood (BLOOD GLUCOSE TEST STRIPS) STRP Use one strip daily for glucose monitoring. Dx: E11.22 02/13/2020 Active umeclidinium (INCRUSE ELLIPTA) 62.5 MCG/INH inhaler Inhale 62.5 mcg by mouth once daily 02/09/2020 Active warfarin (COUMADIN) 2 MG tablet Take 2 (two) tablets by mouth once daily 180 tablet 1 02/24/2021 Active furosemide (LASIX) 20 MG tablet Take 1 (one) tablet by mouth once daily 90 tablet 3 04/18/2021 Active potassium chloride ER (KLOR-CON) 10 MEQ tablet Take 1 (one) tablet by mouth once daily 90 tablet 2 06/01/2021 Active spironolactone (ALDACTONE) 25 MG tablet Take 0.5 (one-half) tablet by mouth once daily 45 tablet 2 06/01/2021 Active trospium (SANCTURA) 20 MG tablet Take 1 (one) tablet by mouth 2 times daily 90 tablet 4 08/16/2021 Active carvedilol (COREG) 25 MG tablet Take 1 (one) tablet by mouth 2 times daily 180 tablet 3 08/16/2021 Active Budeson-Glycopyrr ol-Formoterol (BREZTRI AEROSPHERE) 160-9-4.8 MCG/ACT AERO Inhale 2 Inhalers by mouth 2 times daily Active cefdinir (OMNICEF) 300 MG capsule Take 300 mg by mouth 2 times daily 01/27/2022 Active Active Problems Problem Noted Date Diagnosed Date DDD (degenerative disc disease), cervical 2021 Overview (02/12/2022): Last Assessment & Plan: Worsening pain Use flexeril PRN COVID-19 07/02/2021 Chronic bilateral thoracic back pain 05/04/2021 Overview (09/19/2021): Last Assessment & Plan: Worsened Order celebrex, flexeril Order xray Order PT Neck pain 05/04/2021 Overview (09/19/2021): Last Assessment & Plan: Worsened Order celebrex, flexeril Order xray Order PT Hyperlipidemia associated with type 2 diabetes m ellitus 04/26/2021 Overview (02/12/2022): Last Assessment & Plan: Stable Cont lipitor Goal: TC<200, LDL<100, TG<150 Swelling of right lower extremity 03/15/2021 Overview (09/19/2021): Last Assessment & Plan: New Order venous doppler to r/o DVT Post-menopausal 02/22/2021 Hypertensive heart disease w ith chronic systolic congestive heart failure 02/22/2021 Overview (02/12/2022): Last Assessment & Plan: Stable Cont cozaar, coreg Goal: SBP<140, DP<90 Hematochezia 01/14/2020 Overview (09/20/2020): Last Assessment & Plan: Patient sent to the ER Periumbilical abdominal pain 01/14/2020 Overview (09/20/2020): Last Assessment & Plan: Patient sent to the ER Abnormal computed tomography of gallbladder 10/26 Acute cholecystitis 11/13/2019 Cellulitis of multiple sites of head and neck Chest pain at rest 11/13/2019 Clostridioides difficile diarrhea 11/13/2019 Osteoporosis 11/13/2019 Overview (09/20/2020): Last Assessment & Plan: Start fosamax Pain in right knee 11/13/2019 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 Overview (09/20/2020): Last Assessment & Plan: New Refer to GI Sepsis with cutaneous manifestations 11/13/2019 Type 2 diabetes mellitus not at goal 11/13/2019 Overview (09/20/2020): Last Assessment & Plan: Stable Cont kim popeempic Acute pneumonia 10/29/2019 Overview (09/20/2020): Last Assessment & Plan: D/w critical care technician and hospitalist and sent for direct admission to the hospital Aortic stenosis due to bicuspid aortic valve 01/2019 Vitamin D deficiency 10/31/2018 Overview (09/20/2020): Last Assessment & Plan: Stable Cont vitamin d supplement Anticoagulation monitoring, INR range 2.5-3.5 History of mitral valve replacement with mechani cindy valve 03/11/2018 Assessment & Plan (12/30/2020 12:41 PM INFORMATION SYSTEMS ANALYST): St. Loc' mechanical valve. Stable, continue warfarin. ECHO in follow up. Assessment & Plan (08/05/2020 9:18 AM CDT): Full echocardiographic report to follow, but appears to have no significant issue. Continue oral anticoagulation Restless legs syndrome 01/04/2018 Overview (09/20/2020): Overview: Management per patient's sleep M.D. 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 Ines Casey Gastrointestinal hemorrhage 01/23/2017 Weakness 01/22/2017 Mechanical breakdown of cardiac electrode 2016 Overview (01/30/2017): Overview: S/P capping the malfunctioning lead and implantation of a new Medtronic RV pacer lead using existing normally functioning PG.on 12-26-2016 Atrioventricular block, complete 11/29/2016 Overview (01/30/2017): Overview: Pt is pacer dependent. Gout 11/29/2016 Hyperlipidemia 11/29/2016 Rheumatic aortic stenosis 11/29/2016 Overview (02/02/2017): Overview: Moderate to severe .CAVA:1.2 cm2,mean gradient 24.7 mmHg EF 72% on echo of 01-22-2017 Overview: Based on echo in Jul 2016 Assessment & Plan (12/30/2020 12:33 PM INFORMATION SYSTEMS ANALYST): Mild and asymptomatic on recent Exercise Bike ECHO: Medical managment for now, follow up with Dr. Rouse in 6 months. Assessment & Plan (10/14/2019 1:32 PM INFORMATION SYSTEMS ANALYST): Mild and asymptomatic on recent Exercise Bike ECHO: Medical managment for now, follow up with Dr. Escobar in 4-5 months. 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 Assessment & Plan (12/30/2020 12:24 PM INFORMATION SYSTEMS ANALYST): Stable on warfarin and BB, asymptomatic. Assessment & Plan (08/05/2020 9:20 AM CDT): No symptoms or concern regarding uncontrolled rate, remains anticoagulated secondary to her mechanical aortic valve. Assessment & Plan (10/14/2019 1:25 PM INFORMATION SYSTEMS ANALYST): Stable on warfarin and BB> Long-term insulin use 11/04/2014 Paresis 05/22/2014 COPD (chronic obstructive pulmonary disease) Overview (05/11/2016): Doing well with Spiriva and off Qvar. Not needing albuterol. History of [place] (myocardial infarction) 04/21/2014 Overview (04/21/2014): QUESTIONABLE, await records. Demand ischemia? No blockage per the patient. Pacemaker was placed for bradycardia. ??? Benign neoplasm of large intestine 04/11/2014 Overview (09/20/2020): Overview: BENIGN NEOPLASM LG BOWEL Herpes zoster with nervous system complication 0 04/11/2014 Overview (09/20/2020): Overview: H ZOSTER NERV SYST NEC Non-ischemic cardiomyopathy 05/09/2013 Assessment & Plan (12/30/2020 12:30 PM INFORMATION SYSTEMS ANALYST): Stable and asymptomatic. Last EF recovered noted to be 60% in June 2020. No decline in functional status, continues to be [place] Heart Association class 1-2. Remains on carvedilol 25 mg twice daily, losartan 25 mg daily, spironolactone 12.5 mg daily and her loop diuretic. No changes in therapy at this time. Most recent lab work in Care Everywhere is stable. Assessment & Plan (08/05/2020 9:19 AM CDT): No decline in functional status, presently [place] Heart [employer] class 1-2. Remains on carvedilol 25 mg twice daily, losartan 25 mg daily, spironolactone 12.5 mg daily and her loop diuretic. No changes in therapy at this time Coronary artery disease of n ative artery of [place] heart with stable angina pectoris 05/09/2013 Overview (05/11/2016): No chest discomfort Assessment & Plan (12/30/2020 12:39 PM INFORMATION SYSTEMS ANALYST): Stable, denies chest pain. [facility] in April 2019 showed Mild nonobstructive CAD. Continue medical management with statin and BB. Assessment & Plan (08/05/2020 9:19 AM CDT): No significant worsening of symptoms or episodes of angina that would prompt us to have her undergo further workup or evaluation at this time. No change in current therapy, including a baby aspirin daily and statin therapy. Assessment & Plan (10/14/2019 1:24 PM INFORMATION SYSTEMS ANALYST): Stable, denies chest pain. [facility] in April showed Mild nonobstructive CAD. Continue medical management with statin and BB. History of asthma 03/31/2013 Overview (03/31/2013): Mainly with viral infections. Chronic systolic heart failure 03/19/2013 Mitral valve disease 03/19/2013 Mixed urge and stress incontinence 09/09/2012 Dry eye syndrome 03/04/2012 Overview (11/05/2014): Not bad as of 11/05/2014 not compliant with drops always. Sick sinus syndrome 04/10/2011 Overview (09/20/2020): Overview: Description: Sick Sinus Syndrome History of colonic polyps 04/04/2011 Overview (11/12/2016): Colonoscopy Removed 8 polyps, all benign. 10/23/16 tubular adenoma x 4 Complicated by GI bleed hospital stay 10/27/16 - 11/04/16, [facility] Presence of cardiac pacemaker 10/05/2010 Overview (02/02/2017): Overview: VVI Medtronic with recurrent interchangeable high and low impedance (lead was placed in 2005). RV lead replacement 12-26-2016 Replaced 2015 Assessment & Plan (10/14/2019 1:24 PM INFORMATION SYSTEMS ANALYST): Device function wnl, no changes. Family history of allergies 01/26/2010 Overview (11/05/2014): Dogs Cats, mites, ragweed. Not bad 11/05/2014 Essential hypertension 04/06/2009 Overview (08/26/2015): No headache 11/05/2014 MAC on CPAP 04/06/2009 Overview (05/11/2016): On CPAP, 19 cm water. Compliant every night. Urinary incontinence 04/06/2009 Overview (11/05/2014): Urgency improved on Rx. Myrbetriq. 11/05/2014 Positive ADRIANA (antinuclear antibody) 04/06/2009 H/O prosthetic mitral valve 04/06/2009 Overview (11/05/2014): St. Loc's valve. Dr. De La Rosa office follows tj. He is her media developer. On warfarin. 11/05/2014 Assessment & Plan (10/14/2019 1:25 PM INFORMATION SYSTEMS ANALYST): St. Loc' mechanical valve. Stable, continue warfarin. Obstructive sleep apnea 04/06/2009 Overview (09/20/2020): [facility] Overview: Overview: On CPAP, 19 cm water. Compliant every night. Insomnia 08/15/2005 Actinic keratosis 05/16/2005 Malignant neoplasm of skin of parts of face 04/27 Alopecia 05/16/2005 Posterior vitreous detachment, both eyes Cataracts, bilateral Overview (02/17/2015): Sees [facility], Dr. Jaydon Rich? Resolved Problems Problem Noted Date Diagnosed Date Resolved Date Cough 07/05/2020 10/18/2020 Urinary tract infection 12/28/201601/25 Leg ulcer 11/16/2016 11/25/2016 Overview (11/16/2016): Office Visit 01/30/14 Lower GI bleed 10/27/2016 11/04/2016 Overview (11/12/2016): Hospital stay [facility]. Followed hot snare polypectomy by Dr. Lou 10/23/2016 SARMIENTO (dyspnea on exertion) 04/21/2014 Pseudoaneurysm 05/09/2013 11/05/2014 Overview (05/09/2013): Pseudoaneurysm of right groin GERD (gastroesophageal reflux disease) 11/28/2012 11/05/2014 Overview (11/05/2014): Not now. 11/05/2014 Iron deficiency anemia 11/28/201201/30 Microalbuminuria 07/23/2012 01/30/2014 Overview (11/05/2014): Recent Labs Component Name 01/30/14 1415 07/23/12 1029 04/04/11 1645 MICROALBCREA 23.5 110.8* 7.2 Asthma 04/26/2012 03/31/2013 Overview (06/06/2012): None episodes in the past month, no episodes of wheezing Cyst in hand 04/26/2012 06/06/2012 Overview (04/26/2012): Left 4th digit of hand, proximal to ventral distal interphalangeal joint Urge incontinence 01/18/2011 09/07/2015 Type II diabetes mellitus 01/18/2011 History of A-FIb 10/05/2010 11/03/2014 Overview (06/06/2012): Irregularly irregular rhythm, rate controlled. INR 2.8 At goal Type II DM with renal manife stations, uncontrolled(250.42) 06/28/2010 02/17/2015 Overview (02/17/2015): Recent Labs Component Name 02/17/15 11/05/14 1124 05/16/14 0814 HGBA1C 6.3 7.3* 7.4* Recent Labs Component Name 05/16/14 0814 02/13/14 06/10/12 0935 04/06/12204908/30/11 1225 SODIUM -- -- 142 142 146* POTASSIUM -- -- 4.1 4.2 4.2 CHLORIDE -- -- 104 107 107 CO2 -- -- 23 27 24 BUN -- -- 23 12 15 CREATININE 1.22 1.07 0.95 0.77 0.93 GLUCOSE -- -- 132* 95 98 CALCIUM -- -- 9.5 9.6 9.3 02/17/2015 Hematuria 06/20/2010 10/05/2010 Asthmatic bronchitis 06/20/2010 010 Anemia 04/06/2009 06/18/2009 Colon polyps 04/06/2009 04/04/2011 Overview (01/26/2010): Due colonoscopy 2012 per pt. Moderate persistent asthma w ith status asthmaticus 05/16/2005 10/04/2020 Blepharitis 04/21/2014 Immunizations Name Administration Dates Next Due INFLUENZA VACCINE, TRIV. (AF LURIA, FLUZONE TRIVALENT; 6MO+) (IIV3) 09/09/2012,09/04/2011,09/10/2004,2003 Covid Pfizer primary monoval ent 12+ yr 0.3mL Purple cap 01/12/2021,12/24/2020 FLU VACCINE TRI IIV3 SPLIT P F IM (FLUVIRIN) 08/26/2007 INFLUENZA VACCINE 09/18/2018, 5,08/19/2014,2012,09/02/2010,08/26/2009,09/17/2008 INFLUENZA VACCINE, HIGH-DOSE , QUADR. (FLUZONE HIGH-DOSE QUADRIVALENT; 65Y+), 0.7 ML (HD-IIV4) 09/18/2018,08/24/2017,08/23/2016 PNEUMOCOCCAL PPSV23 02/09/2018, 1,09/26/2007,2005,11/26/1997 Pneumococcal Pcv13 Conj 06/24/2015 TD (AGE 7-ADULT) 03/17/2013,07/20/1999, 9 TDAP (7yrs+) 09/04/2011 TETANUS 03/17/2013 Family History Medical History Relation Name Comments Heart Disease Brother Coronary Artery Disease,premature <65 female Daughter [place] Heart Disease Mother Hypertension Mother Relation Name Status Comments Brother heart disease Daughter Mother heart disease, htn Social History Tobacco Use Types Packs/Day Years Used Date Smoking Tobacco: Former Cigarettes 2 13 0 11/26/1961 - 11/26/1974 Smokeless Tobacco: Never Tobacco Cessation:Counseling Given: Yes Alcohol Use Standard Drinks/Week Comments Yes 0 (1 standard drink = 0.6 oz pur e alcohol) Sex and Gender Information Value Date Recorded Sex Assigned at Not on file Gender Identity Not on file Sexual Orientation Not on file Last Filed Vital Signs Vital Sign Reading Time Taken Comments Blood Pressure 116/80 02/06/2022 2:59 PM CDT Pulse 96 09/20/2020 11:49 AM CDT Temperature 35.9 ??C (96.7 ??F) 09/20/2020 11:49 AM C DT Respiratory Rate 17 05/09/2019 12:55 PM CDT Oxygen Saturation 98% 09/14/2020 1:39 PM CDT Inhaled Oxygen Concentration 21% 07/09/2016 1 2:40 AM CDT Weight 84.4 kg (186 lb) 02/06/2022 2:59 PM CDT Height 165.1 cm (5' 5 ) 02/06/2022 2:59 PM CDT Body Mass Index 30.95 02/06/2022 2:59 PM CDT Plan of Treatment Health Maintenance Due Date Last Done Comments ZOSTER VACCINE (1 of 2) 1993 DIABETES-FOOT EXAM WITH MONOFILAMENT 05/11/2017 05/11/2016, 08/06/2015, 07/28/2014, Additional history exists MEDICARE AWV ? 12 MONTHS 05/11/2017 05/11/2016, 02/17/2015 Respiratory Syncytial Virus (RSV) Vaccine Pt: or over 60 yrs (1 - 1-dose 75+ series) 2018 DIABETES RETINOPATHY SCREENING 10/16/2018 10/16/2016, 03/13/2016, 03/13/2016, Additional history exists DIABETES-HGB A1C 03/30/2022 09/30/2021, 11/2020, 08/31/2020, Additional history exists DIABETES-SERUM CREATININE 11/28/20222021, 11/28/2021, 09/30/2021, Additional history exists DTAP/TDAP/TD VACCINES (6 - Td or Tdap) 03/17/2023 03/17/2013, 03/17/2013, 09/04/2011, Additional history exists COVID-19 VACCINE ( season) 2024 01/12/2021, 12/24/2020 INFLUENZA VACCINE (#1) 2024 0, 09/02/2019, 09/18/2018, Additional history exists DEPRESSION SCREENING 11/26/2024 DIABETES - URINE PROTEIN SCREENING 11/26/2024 07/24/2016, 02/23/2015, 01/30/2014, Additional history exists BONE DENSITY TESTING Completed 12/16/2008, 11/26/19 09 PNEUMOCOCCAL VACCINE 50+ Completed 018, 06/24/2015, 09/04/2011, Additional history exists HEPATITIS B VACCINE Aged Out No longe r eligible based on patient's age to complete this topic HIB VACCINE Aged Out No longer eligi ble based on patient's age to complete this topic HPV VACCINE Aged Out No longer eligi ble based on patient's age to complete this topic MENINGOCOCCAL (Group B) VACCINE Aged Out No longer eligible based on patient's age to complete this topic MENINGOCOCCAL VACCINE Aged Out No marge ana paula eligible [...] 7.0 Result Component 6.4( 7 6:22 AM INFORMATION SYSTEMS ANALYST) No Lang, Marnice A Procedures Procedure Name Priority Date/Time Associated Diagnosis Comments BASIC METABOLIC PANEL (CALCIUM TOTAL) STAT 05/09/2019 7:23 AM CDT Coronary artery disease of [place] artery of [place] heart with stable angina pectoris (HCC) HEMOGLOBIN A1C Routine 01/26/2017 6:22 AM INFORMATION SYSTEMS ANALYST MICROALB/CREAT RATIO URINE RANDOM PANEL Routine 07/24/2016 7:53 AM CDT Type 2 diabetes mellitus with stage 3 chronic kidney disease, with long-term current use of insulin (HCC) DIABETES EYE EXAM Routine 03/13/2016 DEXA BONE DENSITY 2 SITES Routine 12/16/2008 from Last 3 Months or Most Recently Relevant to Health Maintenance Results * (ABNORMAL) BASIC METABOLIC PANEL (CALCIUM TOTAL) (05/09/2019 7:23 AM CDT) BUN 28(H) 7 - 26 mg/dL 05/09/2019 8:06 AM [facility] Creatinine 1.3(H) 0.6 - 1.2 mg/dL 05/09/2019 8:06 AM [facility] Sodium 142 136 - 145 mmol/L 05/09/2019 8:06 AM [facility] Potassium 5.1(H) 3.5 - 4.5 mmol/L 05/09/2019 8:06 AM [facility] Comment: Hemolysis detected in this specimen. Hemolysis is known to cause elevations in this analyte. Caution should be exercised in the interpretation of this result. Recommend repeat testing if clinically indicated. Chloride 106 98 - 107 mmol/L 05/09/2019 8:06 AM [facility] CO2 24 22 - 29 mmol/L 05/09/2019 8:06 AM [facility] Glucose 118(H) 70 - 115 mg/dL 05/09/2019 8:06 AM [facility] Calcium 10.4(H) 8.4 - 10.2 mg/dL 05/09/2019 8:06 AM [facility] Anion Gap 17 8 - 18 05/09/2019 8:06 AM [facility] BUN/Creatinine Ratio 22 7 - 23 05/09/2019 8:06 AM [facility] Osmolality Calculated 301(H) 270 - 300 mOsm/kg 05/09/2019 8:06 AM [facility] eGFR 40(L) >60 mL/min/1. 73 m2 05/09/2019 8:06 AM [facility] Blood BLOOD SPECIMEN / Unknown Venipuncture / Unknown 05/09/2019 7:23 AM CDT 05/09/2019 7:38 AM T Néstor Perry MD LAB - CHEMISTRY ORD ERABLES [address] [phone] * (ABNORMAL) HEMOGLOBIN A1C (01/26/2017 6:22 AM INFORMATION SYSTEMS ANALYST) Hemoglobin A1c 6.4(H) 4.4 - 6.3 % [facility] Estimated Average Glucose 137 mg/dL [facility] Comment: HbA1c Interpretation: Treatment target values recommended by ADA and other clinical organizations should be used to evaluate metabolic control in patients. Treatment Target Values: Normal : < 5.7% Pre-diabetes: 5.7-6.4% Diabetes: Equal to or greater than 6.5% Reference: [place] [employer] Standards of Care in Diabetes -2014 In patients 70 years and older consider HbA1c target range of 7.0-7.5% Reference: ??Diabetes Mellitus in Older People: Position Statement on behalf of the International Association of Gerontology and Geriatrics (IAGG), the Diabetes Working Democrat for Older People (EDWPOP), and the International Task Force of Experts in Diabetes. ??Juan Welsh, et al. J [place] [employer]. 2012 Test results diagnostic of diabetes should be repeated for confirmation. The Tosoh G8 assay for the measurement of HbA1c is a National Glycohemoglobin Standardization Program (NGSP)certified method. Results for patients with HbE disease should be interpreted with caution as this hemoglobinopathy has been shown to interfere with the Tosoh G8 assay. Blood specimen (specimen) BLOOD SPECIMEN / Unknown 01/26/2017 6:22 AM INFORMATION SYSTEMS ANALYST 01/26/2017 6:25 AM INFORMATION SYSTEMS ANALYST Telma Jansen MD LAB - CHEMISTRY [facility] Organization Address City/State/[facility] Co de Phone Number [address] [phone] * (ABNORMAL) MICROALB/CREAT RATIO URINE RANDOM PANEL (07/24/2016 7:53 AM CDT) Creatinine Urine 73 20 - 320 mg/dL [facility] Comment: Test Performed at: [email or web address] [id number] [place], [place] ??[phone] RYAN ROJAS DO,MPH Microalbumin Urine 2.8 mg/dL [facility] Comment: Reference Range Not established Test Performed at: [email or web address] [address] [place], [place] ??[phone] RYAN ROJAS DO,MPH Microalbumin/Creat inine Ratio 38(H) <30 mcg/mg creat [facility] Comment: The ADA defines abnormalities in albumin excretion as follows: Category ? Result (mcg/mg creatinine) Normal ?<30 Microalbuminuria ? 30-299 Clinical albuminuria ?? > OR = 300 The ADA recommends that at least two of three specimens collected within a 3-6 month period be abnormal before considering a patient to be within a diagnostic category. Urine specimen (specimen) URINE SPECIMEN OBTAINED BY CLEAN CATCH PROCEDURE / Unknown 07/24/2016 7:53 AM CDT 07/24/2016 7:53 AM CDT Bebo Hansen MD LAB - URINE CHEMISTR Y ORDERABLES [facility] [id number] [place] [address] * DIABETES EYE EXAM (03/13/2016) Scanned Document HEALTH MAINTENANCE * DEXA BONE DENSITY 2 SITES (12/16/2008) Anatomical Region Laterality Modality Other Bebo Hansen MD DEXA ORDERABLES from Last 3 Months or Most Recently Relevant to Health Maintenance Advance Directives * Full Code (Latest Code Status on File) Date Activated Date Inactivated Comments 07/08/2016 3:09 AM 07/09/2016 1:32 PM * Full Code Date Activated Date Inactivated Comments 07/08/2016 2:29 AM 07/08/2016 3:09 AM * Full Code Date Activated Date Inactivated Comments 07/07/2016 9:32 PM 07/08/2016 2:29 AM Care Teams Bindery Manager Relationship Specialty Start Date End Date Juana Mesa MD [address] [facility] [place] [phone] PCP - General 04/11/21 Juana Mesa MD [address] [facility] [address] [place] [phone] 04/11/21 Juana Mesa MD [address] [facility] [address] [place] [phone] 07/01/20 Juana Mesa MD [facility] [place] [address] 12/22/19 Juana Mesa MD [facility] [place] [address] 07/21/19 Juana Mesa MD [address] [facility] [place] [address] 07/12/18 Juana Mesa MD [address] [facility] [place] [address] Family Medicine 05/03/18 Ra Jara MD [address] [place] [address] Endocrinology 04/21/14 Dada Lou MD [address] [place] [address] Internal Medicine 11/09/15 Paco Holden MD [address] [place] [address] Neurology 05/11/16 Paramjit Escobar MD [address] [place] [address] Internal Medicine 11/23/16
--- OUTSIDE RECORDS SUMMARY | 2024-12-22 11:45 | XMS_ITS | Encounter Summary ---
Author Organization [facility] Facility Care Team Providers Care Measurement Operator Name Role Phone Juana Mesa MD Primary Care Provider [phone] Sharlene Meléndez VENEER SUPERVISOR Unavailable [phone] Sharlene Meléndez VENEER SUPERVISOR Unavailable [phone] Lissette Riley Unavailable No, Physician Primary Care Provider [phone] Paulette Prieto GROOVER OPERATOR Primary Care Provider [phone] Meredith Aburto GROOVER OPERATOR Primary Care Provi arlette No, Physician Primary Care Provider [phone] Encounter Details Date Type Department Care Team (Latest Contact Info) Description 01/02/2018 Orders Only [facility] CLINCONV ProviderDwayne MD [address] [place] [id number] Social History Tobacco Use Types Packs/Day Years Used Date Smoking Tobacco: Former Alcohol Use Standard Drinks/Week Comments Yes 0 (1 standard drink = 0.6 oz pur e alcohol) Comments Unknown Sex and Gender Information Value Date Recorded Sex Assigned at Not on file Legal Sex Female 9:08 AM PETROPHYSICAL ENGINEER Gender Identity Female 06/25/2019 7:13 AM CDT Sexual Orientation Not on file documented as of this encounter Plan of Treatment Not on file documented as of this encounter Procedures Procedure Name Priority Date/Time Associated Diagnosis Comments SCAN - LABS 01/02/2018 12:00 AM PETROPHYSICAL ENGINEER documented in this encounter Results * SCAN - LABS (01/02/2018 12:00 AM PETROPHYSICAL ENGINEER) Narrative 01/02/2018 12:00 AM PETROPHYSICAL ENGINEER Ordered by an unspecified provider. us Historical Provider MD Final Res ult documented in this encounter Visit Diagnoses Not on filedocumented in this encounter Additional Health Concerns Infection Onset Date Last Indicated Resolved Time C. difficile Comment:No further diarrhea 04/18/2017 04/17/2017 12/30/2021 2 :39 PM PETROPHYSICAL ENGINEER COVID: Suspected 07/05/2020 07/05/2020 07/19/2020 3:05 AM CDT COVID: Suspected 07/01/2021 07/01/2021 07/01/2021 2:38 PM CDT COVID: Suspected 07/01/2021 07/01/2021 07/01/2021 9:10 PM CDT COVID19 07/01/2021 07/01/2021 07/15/2021 3:05 AM CDT COVID: Recovered Comment:Added based on recent COVID infection. 07/15/2021 07/15/2021 11/12/2021 3:[address] COVID: Suspected 11/28/2021 11/28/2021 11/28/2021 7:00 PM PETROPHYSICAL ENGINEER COVID19 11/28/2021 11/28/2021 12/12/2021 3:05 AM PETROPHYSICAL ENGINEER COVID: Recovered Comment:Added based on recent COVID infection. 12/12/2021 12/12/2021 04/11/2022 3:05 AM C DT COVID: Suspected 07/05/2022 07/05/2022 07/05/2022 10:39 PM CDT MRSA 07/06/2022 07/06/2022 01/02/2023 3:05 AM PETROPHYSICAL ENGINEER COVID19 12/02/2022 12/02/2022 12/13/2022 3:05 AM PETROPHYSICAL ENGINEER COVID: Recovered Comment:Added based on recent COVID infection. 12/13/2022 12/15/2022 03/13/2023 3:05 AM C DT Exposure, COVID-19 Comment:No direct exposure. Pt in COVID recovery window. No concern for new infection. Ana Aguilera 01/15/2023 Added automatically based on COVID19 lab answers indicating exposure risk 01/14/2023 01/14/2023 01/15/2023 10:17 AM PETROPHYSICAL ENGINEER COVID: Suspected 01/14/2023 01/14/2023 01/14/2023 6:42 PM PETROPHYSICAL ENGINEER Human metapneumovirus, conta ct + droplet 01/14/2023 01/14/2023 01/21/2023 3:[address] COVID: Suspected 01/30/2023 01/30/2023 01/30/2023 10:06 PM PETROPHYSICAL ENGINEER documented as of this encounter Care Teams Measurement Operator Relationship Specialty Start Date End Date Juana Mesa MD [address] [facility] [address] [address] PCP - General 11/26/17 10/26/18 No, Physician PCP - General 06/20/22 06/21/22 Paulette Prieto, CARMEN [address] [place] [address] PCP - General Nurse Practitioner 06/22/22 08/16/23 Meredith Aburto, CARMEN [address] [facility] [place] [address] PCP - General Family Medicine 08/17/23 09/11/24 No, Physician PCP - General 09/12/24 Sharlene Meléndez, GILMA [address] [place] [address] Dr [address] [place] [address] Senior Hardware Engineer 07/02/18 07/02/18 Sharlene Meléndez LPN [address] [facility] [address] [place] [address] Senior Hardware Engineer 11/05/19 11/05/19 Lissette Riley [address] [facility] [address] [place] [address] ACO Care Executive Communications Manager 01/15/20 01/15/20 documented as of this encounter
--- OUTSIDE RECORDS SUMMARY | 2024-12-22 11:46 | XMS_ITS | Patient Health Summary ---
Author Organization [facility] Address [address] [place] [address] Care Team Providers Care Pole Setter Name Role Phone Juana Mesa MD Primary Care Provider [phone] Juana Mesa MD Unavailable Juana Mesa MD Unavailable Juana Mesa MD Unavailable Juana Mesa MD Unavailable Juana Mesa MD Unavailable Juana Mesa MD Unavailable Ra Jara MD Unavailable Dada Lou MD Unavailable Unavailable Paco Holden MD Unavailable [phone] Paramjit Escobar MD Unavailable [phone] Note from [facility],non-owned Affiliates and Associated Physician Practices is amultiple site organization consisting of ambulatory clinics and hospital sitesin [place], [place], [place] and [place]. This disclosure is being madepursuant to the Care Everywhere program and may not contain all information available regarding this patient. Last updated 18.[facility] Allergies * Codeine(Nausea) * Atorvastatin(Other),Inactive * Doxycycline(Vomiting) -Low Criticality,Inactive * Lovastatin,Inactive * Simvastatin(Other),Inactive * Hmg-Coa-R Inhibitors,Inactive Medications * Be aware that medications may not be up to date on this document. Alwaysverify current medications with the patient. * One Touch Delica Lancets(Started 07/28/2015) 1 Device once Reported on 11/23/2016 3 refills left * ONETOUCH VERIO test strip(Started 07/28/2015) 1 Strip once 3 refills left * montelukast (SINGULAIR) 10 MG tablet Take 10 mg by mouth at bedtime * INCRUSE ELLIPTA 62.5 MCG/INH inhaler(Started 09/23/2018) Inhale 1 puff by mouth once daily * BASAGLAR KWIKPEN (BASAGLAR) pen(Started 10/26/2018) Inject 30 Units subcutaneously at bedtime * losartan (COZAAR) 25 MG tablet(Started 07/12/2020) TAKE 1 TABLET BY MOUTH ONCE DAILY 2 refills by 07/12/2021 * doxycycline monohydrate 50 MG capsule(Started 07/12/2020) Take 50 mg by mouth 2 times daily * OZEMPIC, 1 MG/DOSE, 2 MG/1.5ML pen(Started 06/26/2020) Inject 2 mg subcutaneously once daily * alendronate (FOSAMAX) 70 MG tablet(Started 07/05/2020) Take 70 mg by mouth every 7 days * allopurinol (ZYLOPRIM) 300 MG tablet(Started 07/05/2020) Take 300 mg by mouth once daily * atorvastatin (LIPITOR) 10 MG tablet(Started 07/22/2020) Take 10 mg by mouth once daily * budesonide-formoterol (SYMBICORT) 160-4.5 MCG/ACT inhaler(Started 02/09/2020) Inhale 2 puffs by mouth 2 times daily * metFORMIN (GLUCOPHAGE) 500 MG tablet(Started 07/05/2020) Take 500 mg by mouth 2 times daily with morning and evening meal * insulin glargine (LANTUS) pen(Started 10/16/2019) Inject 33 Units subcutaneously once daily * Glucose Blood (BLOOD GLUCOSE TEST STRIPS) STRP(Started 02/13/2020) Use one strip daily for glucose monitoring. Dx: E11.22 * umeclidinium (INCRUSE ELLIPTA) 62.5 MCG/INH inhaler(Started 02/09/2020) Inhale 62.5 mcg by mouth once daily * warfarin (COUMADIN) 2 MG tablet(Started 02/24/2021) Take 2 (two) tablets by mouth once daily 1 refill by 02/24/2022 * furosemide (LASIX) 20 MG tablet(Started 04/18/2021) Take 1 (one) tablet by mouth once daily 3 refills by 04/18/2022 * potassium chloride ER (KLOR-CON) 10 MEQ tablet(Started 06/01/2021) Take 1 (one) tablet by mouth once daily 2 refills by 06/01/2022 * spironolactone (ALDACTONE) 25 MG tablet(Started 06/01/2021) Take 0.5 (one-half) tablet by mouth once daily 2 refills by 06/01/2022 * trospium (SANCTURA) 20 MG tablet(Started 08/16/2021) Take 1 (one) tablet by mouth 2 times daily 4 refills by 08/16/2022 * carvedilol (COREG) 25 MG tablet(Started 08/16/2021) Take 1 (one) tablet by mouth 2 times daily 3 refills by 08/16/2022 * Swqqtkf-Hzuiwhfrguw-Uqcxusxmoq (BREZTRI AEROSPHERE) 160-9-4.8 MCG/ACT AERO Inhale 2 Inhalers by mouth 2 times daily * cefdinir (OMNICEF) 300 MG capsule(Started 01/27/2022) Take 300 mg by mouth 2 times daily Active Problems Problem Noted Date Diagnosed Date DDD (degenerative disc disease), cervical 2021 COVID-19 07/02/2021 Chronic bilateral thoracic back pain 05/04/2021 Neck pain 05/04/2021 Hyperlipidemia associated with type 2 diabetes m ellitus 04/26/2021 Swelling of right lower extremity 03/15/2021 Post-menopausal 02/22/2021 Hypertensive heart disease w ith chronic systolic congestive heart failure 02/22/2021 Hematochezia 01/14/2020 Periumbilical abdominal pain 01/14/2020 Abnormal computed tomography of gallbladder 10/26 Acute cholecystitis 11/13/2019 Cellulitis of multiple sites of head and neck Chest pain at rest 11/13/2019 Clostridioides difficile diarrhea 11/13/2019 Osteoporosis 11/13/2019 Pain in right knee 11/13/2019 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 Sepsis with cutaneous manifestations 11/13/2019 Type 2 diabetes mellitus not at goal 11/13/2019 Acute pneumonia 10/29/2019 Aortic stenosis due to bicuspid aortic valve 01/2019 Vitamin D deficiency 10/31/2018 Anticoagulation monitoring, INR range 2.5-3.5 History of mitral valve replacement with mechani cindy valve 03/11/2018 Restless legs syndrome 01/04/2018 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 Age-related osteoporosis wit hout current pathological fracture 10/03/2017 Atopic dermatitis 03/09/2017 CHF (congestive heart failure) 02/22/2017 Thrombocytopenia 02/02/2017 Pulmonary nodule, left 02/02/2017 Gastric ulcer 01/30/2017 Cardiomegaly 01/30/2017 Chronic bronchitis 01/25/2017 Gastrointestinal hemorrhage 01/23/2017 Weakness 01/22/2017 Mechanical breakdown of cardiac electrode 2016 Atrioventricular block, complete 11/29/2016 Gout 11/29/2016 Hyperlipidemia 11/29/2016 Rheumatic aortic stenosis 11/29/2016 Rheumatic tricuspid insufficiency 11/29/2016 Generalized abdominal pain 10/27/2016 Hypersomnia with sleep apnea 09/29/2016 Nocturnal hypoxemia 09/29/2016 Other secondary pulmonary hypertension 6 Encounter for therapeutic drug level monitoring 08/23/2016 Epiphora due to insufficient drainage 08/14/2016 Rheumatic heart disease 07/26/2016 Cerebral infarction involving right cerebellar a rtery 07/12/2016 History of mitral valve repair 07/09/2016 Vertigo 07/08/2016 Atherosclerosis of aorta 07/06/2016 Lenticular sclerosis 03/13/2016 Type 2 diabetes mellitus wit h stage 3 chronic kidney disease 11/09/2015 CKD (chronic kidney disease) stage 3, GFR 30-59 ml/min 11/08/2015 Obesity 09/07/2015 Allergic rhinitis 02/17/2015 Chronic idiopathic gout invo lving toe of right foot without tophus 11/05/2014 Chronic atrial fibrillation 11/04/2014 Long-term insulin use 11/04/2014 Paresis 05/22/2014 COPD (chronic obstructive pulmonary disease) History of [place] (myocardial infarction) 04/21/2014 Benign neoplasm of large intestine 04/11/2014 Herpes zoster with nervous system complication 0 04/11/2014 Non-ischemic cardiomyopathy 05/09/2013 Coronary artery disease of n ative artery of [place] heart with stable angina pectoris 05/09/2013 History of asthma 03/31/2013 Chronic systolic heart failure 03/19/2013 Mitral valve disease 03/19/2013 Mixed urge and stress incontinence 09/09/2012 Dry eye syndrome 03/04/2012 Sick sinus syndrome 04/10/2011 History of colonic polyps 04/04/2011 Presence of cardiac pacemaker 10/05/2010 Family history of allergies 01/26/2010 Essential hypertension 04/06/2009 MAC on CPAP 04/06/2009 Urinary incontinence 04/06/2009 Positive ADRIANA (antinuclear antibody) 04/06/2009 H/O prosthetic mitral valve 04/06/2009 Obstructive sleep apnea 04/06/2009 Insomnia 08/15/2005 Actinic keratosis 05/16/2005 Malignant neoplasm of skin of parts of face 04/27 Alopecia 05/16/2005 Posterior vitreous detachment, both eyes Cataracts, bilateral Resolved Problems Problem Noted Date Diagnosed Date Resolved Date Cough 07/05/2020 10/18/2020 Urinary tract infection 12/28/201601/25 Leg ulcer 11/16/2016 11/25/2016 Lower GI bleed 10/27/2016 11/04/2016 SARMIENTO (dyspnea on exertion) 04/21/2014 Pseudoaneurysm 05/09/2013 11/05/2014 GERD (gastroesophageal reflux disease) 11/28/2012 11/05/2014 Iron deficiency anemia 11/28/201201/30 Microalbuminuria 07/23/2012 01/30/2014 Asthma 04/26/2012 03/31/2013 Cyst in hand 04/26/2012 06/06/2012 Urge incontinence 01/18/2011 09/07/2015 Type II diabetes mellitus 01/18/2011 History of A-FIb 10/05/2010 11/03/2014 Type II DM with renal manife stations, uncontrolled(250.42) 06/28/2010 02/17/2015 Hematuria 06/20/2010 10/05/2010 Asthmatic bronchitis 06/20/2010 010 Anemia 04/06/2009 06/18/2009 Colon polyps 04/06/2009 04/04/2011 Moderate persistent asthma w ith status asthmaticus 05/16/2005 10/04/2020 Blepharitis 04/21/2014 Immunizations * INFLUENZA VACCINE, TRIV. (AFLURIA, FLUZONE TRIVALENT; 6MO+) (IIV3)(Given 09/09/2012, 09/04/2011, 09/10/2004, 08/26/2004) * [employer] primary monovalent 12+ yr 0.3mL Purple cap(Given 01/12/2021, 12/24/2020) * FLU VACCINE TRI IIV3 SPLIT PF IM (FLUVIRIN)(Given 08/26/2007) * INFLUENZA VACCINE(Given 09/18/2018, 09/30/2015, 08/19/2014, 09/22/2013, 09/02/2010, 08/26/2009, 09/17/2008) * INFLUENZA VACCINE, HIGH-DOSE, QUADR. (FLUZONE HIGH-DOSE QUADRIVALENT; 65Y+), 0.7 ML (HD-IIV4)(Given 09/18/2018, 08/24/2017, 08/23/2016) * PNEUMOCOCCAL PPSV23(Given 02/09/2018, 09/04/2011, 09/26/2007, 10/01/2006, 11/26/1997) * Pneumococcal Pcv13 Conj(Given 06/24/2015) * TD (AGE 7-ADULT)(Given 03/17/2013, 07/20/1999, 06/26/1999) * TDAP (7yrs+)(Given 09/04/2011) * TETANUS(Given 03/17/2013) Social History Tobacco Use Types Packs/Day Years [...] Mass Index 30.95 02/06/2022 2:59 PM CDT Procedures * DERMATOPATHOLOGY(Performed 03/24/2024) * VA FIT/INSERT INTRAVAG SUPPORT DEVICE(Performed 11/23/2021) Performed for Intrinsic sphincter deficiency (ISD) * DERMATOPATHOLOGY(Performed 10/17/2021) * VA FIT/INSERT INTRAVAG SUPPORT DEVICE(Performed 10/04/2021) Performed for Stress incontinence, Urge incontinence * VA ANAL/URINARY MUSCLE STUDY(Performed 10/04/2021) Performed for Stress incontinence, Urge incontinence * VA INTRAABDOMINAL PRESSURE TEST(Performed 10/04/2021) Performed for Stress incontinence, Urge incontinence * VA CYSTOMETROGRAM W/CORRECTIONAL SUPERVISOR&UP(Performed 10/04/2021) Performed for Stress incontinence, Urge incontinence * URINALYSIS AUTO - POINT OF CARE (AMB) [facility](Performed 10/04/2021) Performed for Stress incontinence, Urge incontinence * PT-INR(Performed 06/07/2021) Performed for Anticoagulation monitoring, INR range 2.5-3.5, History of mitral valve replacement with mechanical valve * VA PM/ICD REMOTE TECH SERV(Performed 05/16/2021) Performed for Chronic atrial fibrillation (HCC), Atrioventricular block, complete (HCC), Presence of cardiac pacemaker * VA PM DEVICE INTERROGATE REMOTE(Performed 05/16/2021) Performed for Chronic atrial fibrillation (HCC), Atrioventricular block, complete (HCC), Presence of cardiac pacemaker * CARDIAC PROCEDURE ORDER(Performed 04/26/2021) * CARDIAC PROCEDURE ORDER(Performed 04/26/2021) * DERMATOPATHOLOGY(Performed 04/11/2021) * PT-INR(Performed 04/07/2021) Performed for Anticoagulation monitoring, INR range 2.5-3.5, History of mitral valve replacement with mechanical valve * PT-INR(Performed 03/31/2021) Performed for Anticoagulation monitoring, INR range 2.5-3.5, History of mitral valve replacement with mechanical valve * PT-INR(Performed 03/24/2021) Performed for Anticoagulation monitoring, INR range 2.5-3.5, History of mitral valve replacement with mechanical valve * PT-INR(Performed 03/18/2021) Performed for Anticoagulation monitoring, INR range 2.5-3.5, History of mitral valve replacement with mechanical valve * PT-INR(Performed 03/10/2021) Performed for Anticoagulation monitoring, INR range 2.5-3.5, History of mitral valve replacement with mechanical valve * PT-INR(Performed 03/03/2021) Performed for Anticoagulation monitoring, INR range 2.5-3.5, History of mitral valve replacement with mechanical valve * PT-INR(Performed 02/23/2021) Performed for Anticoagulation monitoring, INR range 2.5-3.5, History of mitral valve replacement with mechanical valve * PT-INR(Performed 02/17/2021) Performed for Anticoagulation monitoring, INR range 2.5-3.5, History of mitral valve replacement with mechanical valve * PT-INR(Performed 02/17/2021) Performed for Anticoagulation monitoring, INR range 2.5-3.5, History of mitral valve replacement with mechanical valve * PT-INR(Performed 02/17/2021) Performed for Anticoagulation monitoring, INR range 2.5-3.5, History of mitral valve replacement with mechanical valve * PT-INR(Performed 02/17/2021) Performed for Anticoagulation monitoring, INR range 2.5-3.5, History of mitral valve replacement with mechanical valve * PT-INR(Performed 02/10/2021) Performed for Anticoagulation monitoring, INR range 2.5-3.5, History of mitral valve replacement with mechanical valve * VA PM/ICD REMOTE TECH SERV(Performed 02/08/2021) Performed for Chronic atrial fibrillation (HCC), Presence of cardiac pacemaker * VA PM DEVICE INTERROGATE REMOTE(Performed 02/08/2021) Performed for Chronic atrial fibrillation (HCC), Presence of cardiac pacemaker * PT-INR(Performed 02/02/2021) Performed for Anticoagulation monitoring, INR range 2.5-3.5, History of mitral valve replacement with mechanical valve * CARDIAC PROCEDURE ORDER(Performed 01/26/2021) * PT-INR(Performed 01/13/2021) Performed for Anticoagulation monitoring, INR range 2.5-3.5, History of mitral valve replacement with mechanical valve * PT-INR(Performed 12/27/2020) Performed for Anticoagulation monitoring, INR range 2.5-3.5, History of mitral valve replacement with mechanical valve * PT-INR(Performed 12/14/2020) Performed for Anticoagulation monitoring, INR range 2.5-3.5, History of mitral valve replacement with mechanical valve * PT-INR(Performed 12/07/2020) Performed for Anticoagulation monitoring, INR range 2.5-3.5, History of mitral valve replacement with mechanical valve * VA PM/ICD REMOTE TECH SERV(Performed 11/22/2020) Performed for Presence of cardiac pacemaker, Atrioventricular block, complete (HCC) * VA PM DEVICE INTERROGATE REMOTE(Performed 11/22/2020) Performed for Presence of cardiac pacemaker, Atrioventricular block, complete (HCC) * PT-INR(Performed 11/22/2020) Performed for Anticoagulation monitoring, INR range 2.5-3.5, History of mitral valve replacement with mechanical valve * IMAGING/RADIOLOGY/XRAY RESULTS ORDER(Performed 11/20/2020) * PT-INR(Performed 11/08/2020) Performed for Anticoagulation monitoring, INR range 2.5-3.5, History of mitral valve replacement with mechanical valve * CARDIAC PROCEDURE ORDER(Performed 10/28/2020) * PT-INR(Performed 10/11/2020) Performed for Anticoagulation monitoring, INR range 2.5-3.5, History of mitral valve replacement with mechanical valve * VA INSERT NON-INDWELLING BLADDER(Performed 09/20/2020) Performed for Mixed stress and urge urinary incontinence * URINALYSIS AUTO - POINT OF CARE (AMB) [facility](Performed 09/20/2020) Performed for Mixed stress and urge urinary incontinence * PT-INR(Performed 09/13/2020) Performed for Anticoagulation monitoring, INR range 2.5-3.5, History of mitral valve replacement with mechanical valve * PT-INR(Performed 08/31/2020) Performed for Anticoagulation monitoring, INR range 2.5-3.5, History of mitral valve replacement with mechanical valve * DERMATOPATHOLOGY(Performed 08/18/2020) * PT-INR(Performed 08/16/2020) Performed for Anticoagulation monitoring, INR range 2.5-3.5, History of mitral valve replacement with mechanical valve * PT-INR(Performed 08/03/2020) Performed for Anticoagulation monitoring, INR range 2.5-3.5, History of mitral valve replacement with mechanical valve * PT-INR(Performed 07/26/2020) Performed for Anticoagulation monitoring, INR range 2.5-3.5, History of mitral valve replacement with mechanical valve * VA TTE W/DOPPLER, COMPLETE(Performed 07/21/2020) Performed for Atrial fibrillation, unspecified type (HCC) * PT-INR(Performed 07/19/2020) Performed for Anticoagulation monitoring, INR range 2.5-3.5, History of mitral valve replacement with mechanical valve * PT-INR(Performed 07/12/2020) Performed for Anticoagulation monitoring, INR range 2.5-3.5, History of mitral valve replacement with mechanical valve * LAB RESULTS ORDER(Performed 07/06/2020) * LAB RESULTS ORDER(Performed 07/06/2020) * PT-INR(Performed 07/05/2020) Performed for Anticoagulation monitoring, INR range 2.5-3.5, History of mitral valve replacement with mechanical valve * DERMATOPATHOLOGY(Performed 07/01/2020) * PT-INR(Performed 06/10/2020) Performed for Anticoagulation monitoring, INR range 2.5-3.5, History of mitral valve replacement with mechanical valve * PT-INR(Performed 05/27/2020) Performed for Anticoagulation monitoring, INR range 2.5-3.5, History of mitral valve replacement with mechanical valve * PT-INR(Performed 05/13/2020) Performed for Anticoagulation monitoring, INR range 2.5-3.5, History of mitral valve replacement with mechanical valve * PT-INR(Performed 05/06/2020) Performed for Anticoagulation monitoring, INR range 2.5-3.5, History of mitral valve replacement with mechanical valve * PT-INR(Performed 04/29/2020) Performed for Anticoagulation monitoring, INR range 2.5-3.5, History of mitral valve replacement with mechanical valve * PT-INR(Performed 04/15/2020) Performed for Anticoagulation monitoring, INR range 2.5-3.5, History of mitral valve replacement with mechanical valve * PT-INR(Performed 04/01/2020) Performed for Anticoagulation monitoring, INR range 2.5-3.5, History of mitral valve replacement with mechanical valve * PT-INR(Performed 03/18/2020) Performed for Anticoagulation monitoring, INR range 2.5-3.5, History of mitral valve replacement with mechanical valve * PT-INR(Performed 03/03/2020) Performed for Anticoagulation monitoring, INR range 2.5-3.5, History of mitral valve replacement with mechanical valve * PT-INR(Performed 02/26/2020) Performed for Anticoagulation monitoring, INR range 2.5-3.5, History of mitral valve replacement with mechanical valve * PT-INR(Performed 02/19/2020) Performed for Anticoagulation monitoring, INR range 2.5-3.5, History of mitral valve replacement with mechanical valve * PT-INR(Performed 02/12/2020) Performed for Anticoagulation monitoring, INR range 2.5-3.5, History of mitral valve replacement with mechanical valve * CARDIAC EKG ORDER(Performed 02/05/2020) * PT-INR(Performed 02/02/2020) Performed for Anticoagulation monitoring, INR range 2.5-3.5, History of mitral valve replacement with mechanical valve * PT-INR(Performed 01/29/2020) * VA PM/ICD REMOTE TECH SERV(Performed 01/28/2020) Performed for Chronic atrial fibrillation (HCC), Presence of cardiac pacemaker, Atrioventricular block, complete (HCC) * VA PM DEVICE INTERROGATE REMOTE(Performed 01/28/2020) Performed for Chronic atrial fibrillation (HCC), Presence of cardiac pacemaker, Atrioventricular block, complete (HCC) * PT-INR(Performed 01/22/2020) Performed for Anticoagulation monitoring, INR range 2.5-3.5, History of mitral valve replacement with mechanical valve * CARDIAC PROCEDURE ORDER(Performed 01/19/2020) * PT-INR(Performed 01/16/2020) Performed for Anticoagulation monitoring, INR range 2.5-3.5, History of mitral valve replacement with mechanical valve * PT-INR(Performed 01/12/2020) Performed for Anticoagulation monitoring, INR range 2.5-3.5, History of mitral valve replacement with mechanical valve * PT-INR(Performed 01/08/2020) Performed for Anticoagulation monitoring, INR range 2.5-3.5, History of mitral valve replacement with mechanical valve * PT-INR(Performed 01/02/2020) Performed for Anticoagulation monitoring, INR range 2.5-3.5, History of mitral valve replacement with mechanical valve * PT-INR(Performed 12/25/2019) Performed for Anticoagulation monitoring, INR range 2.5-3.5, History of mitral valve replacement with mechanical valve * DERMATOPATHOLOGY(Performed 12/22/2019) * PT-INR(Performed 12/18/2019) Performed for Anticoagulation monitoring, INR range 2.5-3.5, History of mitral valve replacement with mechanical valve * PT-INR(Performed 12/10/2019) Performed for Anticoagulation monitoring, INR range 2.5-3.5, History of mitral valve replacement with mechanical valve * PT-INR(Performed 12/03/2019) Performed for Anticoagulation monitoring, INR range 2.5-3.5, History of mitral valve replacement with mechanical valve * PT-INR(Performed 10/29/2019) Performed for Anticoagulation monitoring, INR range 2.5-3.5, History of mitral valve replacement with mechanical valve * PT-INR(Performed 10/29/2019) Performed for Anticoagulation monitoring, INR range 2.5-3.5, History of mitral valve replacement with mechanical valve * PROC IMPLANT WEAR CARDIAC DEVICE EVAL(Performed 10/14/2019) Performed for Permanent atrial fibrillation (HCC) * PT-INR(Performed 10/08/2019) Performed for Anticoagulation monitoring, INR range 2.5-3.5, History of mitral valve replacement with mechanical valve * PT-INR(Performed 09/23/2019) * LAB RESULTS ORDER(Performed 09/10/2019) * PT-INR(Performed 09/09/2019) * PT-INR(Performed 09/01/2019) * LAB RESULTS ORDER(Performed 09/01/2019) * PT-INR(Performed 08/29/2019) * LAB RESULTS ORDER(Performed 08/25/2019) * PT-INR(Performed 08/22/2019) * LAB RESULTS ORDER(Performed 08/20/2019) * PT-INR(Performed 08/19/2019) * LAB RESULTS ORDER(Performed 08/18/2019) * PT-INR(Performed 08/15/2019) * VA PM/ICD REMOTE TECH SERV(Performed 07/26/2019) Performed for Chronic atrial fibrillation (HCC), Atrioventricular block, complete (HCC), Pacemaker * VA PM DEVICE INTERROGATE REMOTE(Performed 07/26/2019) Performed for Chronic atrial fibrillation (HCC), Atrioventricular block, complete (HCC), Pacemaker * LAB RESULTS ORDER(Performed 07/25/2019) * PT-INR(Performed 07/24/2019) * DERMATOPATHOLOGY(Performed 07/21/2019) * ECHO STRESS COLOR FLOW AND DOPPLER(Performed 07/16/2019) Performed for Rheumatic aortic stenosis * ECHO STRESS W BICYCLE(Performed 07/16/2019) Performed for Rheumatic aortic stenosis * LAB RESULTS ORDER(Performed 07/10/2019) * PT-INR(Performed 07/10/2019) * CARDIAC PROCEDURE ORDER(Performed 07/09/2019) * LAB RESULTS ORDER(Performed 07/04/2019) * PT-INR(Performed 07/03/2019) * LAB RESULTS ORDER(Performed 06/27/2019) * PT-INR(Performed 06/26/2019) * LAB RESULTS ORDER(Performed 06/20/2019) * PT-INR(Performed 06/19/2019) * LAB RESULTS ORDER(Performed 06/12/2019) * PT-INR(Performed 06/12/2019) * CCL CARDIAC CATH LEFT(Performed 05/09/2019) Performed for Decreased cardiac ejection fraction, Aortic valve stenosis, etiology of cardiac valvedisease unspecified, History of mitral valve replacement * CBC W/O DIFFERENTIAL(Performed 05/09/2019) Performed for CAD in [place] artery * PT-INR [facility](Performed 05/09/2019) Performed for Coronary artery disease of [place] artery of [place] heart with stable angina pectoris (HCC) * BASIC METABOLIC PANEL (CALCIUM TOTAL)(Performed 05/09/2019) Performed for Coronary artery disease of [place] artery of [place] heart with stable angina pectoris (HCC) * CT ANGIO TAVR CHEST ABD PEL(Performed 05/02/2019) Performed for Decreased cardiac ejection fraction, Aortic valve stenosis, etiology of cardiac valvedisease unspecified, History of mitral valve replacement * CREATININE BLOOD - POCT (IP) [facility](Performed 05/02/2019) Performed for Aortic valve stenosis, etiology of cardiac valve disease unspecified * PT-INR [facility](Performed 05/02/2019) Performed for Decreased cardiac ejection fraction, Nonrheumatic aortic valve stenosis, Aortic valvestenosis, etiology of cardiac valve disease unspecified, History of mitral valve replacement, Preopexamination * CBC W AUTO DIFFERENTIAL(Performed 05/02/2019) Performed for Decreased cardiac ejection fraction, Nonrheumatic aortic valve stenosis, Aortic valvestenosis, etiology of cardiac valve disease unspecified, History of mitral valve replacement, Preopexamination * BASIC METABOLIC PANEL (CALCIUM TOTAL)(Performed 05/02/2019) Performed for Decreased cardiac ejection fraction, Nonrheumatic aortic valve stenosis, Aortic valvestenosis, etiology of cardiac valve disease unspecified, History of mitral valve replacement, Preopexamination * PT-INR(Performed 04/10/2019) Performed for Anticoagulation monitoring, INR range 2.5-3.5, History of mitral valve replacement with mechanical valve * VA TTE W/DOPPLER, COMPLETE(Performed 04/07/2019) Performed for Chronic atrial fibrillation (HCC), Non-ischemic cardiomyopathy (HCC) * VA PM DEVICE PROGR EVAL SNGL(Performed 04/03/2019) Performed for Chronic atrial fibrillation (HCC), Atrioventricular block, complete (HCC) * PT-INR(Performed 03/27/2019) Performed for Anticoagulation monitoring, INR range 2.5-3.5, History of mitral valve replacement with mechanical valve * PT-INR(Performed 03/13/2019) Performed for Anticoagulation monitoring, INR range 2.5-3.5, History of mitral valve replacement with mechanical valve * PT-INR(Performed 02/27/2019) Performed for Anticoagulation monitoring, INR range 2.5-3.5, History of mitral valve replacement with mechanical valve * PT-INR(Performed 02/20/2019) Performed for Anticoagulation monitoring, INR range 2.5-3.5, History of mitral valve replacement with mechanical valve * PT-INR(Performed 02/13/2019) Performed for Anticoagulation monitoring, INR range 2.5-3.5, History of mitral valve replacement with mechanical valve * PT-INR(Performed 02/07/2019) Performed for Anticoagulation monitoring, INR range 2.5-3.5, History of mitral valve replacement with mechanical valve * PT-INR(Performed 01/30/2019) Performed for Anticoagulation monitoring, INR range 2.5-3.5, History of mitral valve replacement with mechanical valve * PT-INR(Performed 01/24/2019) Performed for Anticoagulation monitoring, INR range 2.5-3.5, History of mitral valve replacement with mechanical valve * PT-INR(Performed 01/16/2019) Performed for Anticoagulation monitoring, INR range 2.5-3.5, History of mitral valve replacement with mechanical valve * PT-INR(Performed 01/09/2019) Performed for Anticoagulation monitoring, INR range 2.5-3.5, History of mitral valve replacement with mechanical valve * PT-INR(Performed 01/09/2019) * [facility] PM/ICD REMOTE TECH SERV(Performed 01/08/2019) Performed for Atrioventricular block, complete (HCC), Chronic atrial fibrillation (HCC), Presence of cardiac pacemaker * [facility] PM DEVICE INTERROGATE REMOTE(Performed 01/08/2019) Performed for Atrioventricular block, complete (HCC), Chronic atrial fibrillation (HCC), Presence of cardiac pacemaker * PT-INR(Performed 01/02/2019) Performed for Anticoagulation monitoring, INR range 2.5-3.5, History of mitral valve replacement with mechanical valve * PT-INR(Performed 12/19/2018) Performed for Anticoagulation monitoring, INR range 2.5-3.5, History of mitral valve replacement with mechanical valve * CARDIAC PROCEDURE ORDER(Performed 12/18/2018) * PT-INR(Performed 12/12/2018) Performed for Anticoagulation monitoring, INR range 2.5-3.5, History of mitral valve replacement with mechanical valve * PT-INR(Performed 11/28/2018) Performed for Anticoagulation monitoring, INR range 2.5-3.5, History of mitral valve replacement with mechanical valve * PT-INR(Performed 11/14/2018) Performed for Anticoagulation monitoring, INR range 2.5-3.5, History of mitral valve replacement with mechanical valve * LAB RESULTS ORDER(Performed 11/11/2018) * PT-INR(Performed 11/07/2018) Performed for Anticoagulation monitoring, INR range 2.5-3.5, History of mitral valve replacement with mechanical valve * PT-INR(Performed 11/04/2018) Performed for Anticoagulation monitoring, INR range 2.5-3.5, History of mitral valve replacement with mechanical valve * PT-INR(Performed 10/28/2018) Performed for Anticoagulation monitoring, INR range 2.5-3.5, History of mitral valve replacement with mechanical valve * PT-INR(Performed 10/21/2018) Performed for Anticoagulation monitoring, INR range 2.5-3.5, History of mitral valve replacement with mechanical valve * PT-INR(Performed 10/11/2018) Performed for Anticoagulation monitoring, INR range 2.5-3.5, History of mitral valve replacement with mechanical valve * PT-INR(Performed 10/03/2018) Performed for Anticoagulation monitoring, INR range 2.5-3.5, History of mitral valve replacement with mechanical valve * PT-INR(Performed 09/25/2018) Performed for Anticoagulation monitoring, INR range 2.5-3.5, History of mitral valve replacement with mechanical valve * PT-INR(Performed 09/10/2018) Performed for Anticoagulation monitoring, INR range 2.5-3.5, History of mitral valve replacement with mechanical valve * PT-INR(Performed 08/27/2018) Performed for Anticoagulation monitoring, INR range 2.5-3.5, History of mitral valve replacement with mechanical valve * LAB RESULTS ORDER(Performed 08/23/2018) * PT INR (EXTERNAL RESULT ENTRY)(Performed 08/19/2018) * PT-INR(Performed 08/13/2018) Performed for Anticoagulation monitoring, INR range 2.5-3.5, History of mitral valve replacement with mechanical valve * CARDIAC PROCEDURE ORDER(Performed 08/02/2018) * PT-INR(Performed 07/31/2018) Performed for Anticoagulation monitoring, INR range 2.5-3.5, History of mitral valve replacement with mechanical valve * PT-INR(Performed 07/24/2018) Performed for Anticoagulation monitoring, INR range 2.5-3.5, History of mitral valve replacement with mechanical valve * PT-INR(Performed 07/16/2018) Performed for Anticoagulation monitoring, INR range 2.5-3.5, History of mitral valve replacement with mechanical valve * PT-INR(Performed 07/09/2018) Performed for Anticoagulation monitoring, INR range 2.5-3.5, History of mitral valve replacement with mechanical valve * PT-INR(Performed 07/04/2018) Performed for Anticoagulation monitoring, INR range 2.5-3.5, History of mitral valve replacement with mechanical valve * PT-INR(Performed 06/27/2018) Performed for Anticoagulation monitoring, INR range 2.5-3.5, History of mitral valve replacement with mechanical valve * [facility] PM/ICD REMOTE TECH SERV(Performed 06/21/2018) Performed for Chronic atrial fibrillation (HCC), Atrioventricular block, complete (HCC), Pacemaker * [facility] PM DEVICE INTERROGATE REMOTE(Performed 06/21/2018) Performed for Chronic atrial fibrillation (HCC), Atrioventricular block, complete (HCC), Pacemaker * PT-INR(Performed 06/20/2018) Performed for Anticoagulation monitoring, INR range 2.5-3.5, History of mitral valve replacement with mechanical valve * PT-INR(Performed 06/13/2018) Performed for Anticoagulation goal of INR 2.5 to 3.5, Chronic atrial fibrillation (HCC), H/O mitralvalve replacement with mechanical valve * PATHOLOGY/CYTOLOGY REPORT ORDER(Performed 06/10/2018) * PT-INR(Performed 06/05/2018) Performed for Anticoagulation goal of INR 2.5 to 3.5, Chronic atrial fibrillation (HCC), H/O mitralvalve replacement with mechanical valve * LAB RESULTS ORDER(Performed 06/05/2018) * LAB RESULTS ORDER(Performed 06/05/2018) * PT INR (EXTERNAL RESULT ENTRY)(Performed 05/27/2018) * PT-INR(Performed 05/14/2018) Performed for Anticoagulation goal of INR 2.5 to 3.5, Chronic atrial fibrillation (HCC), H/O mitralvalve replacement with mechanical valve * PT-INR(Performed 05/06/2018) Performed for Anticoagulation goal of INR 2.5 to 3.5, Chronic atrial fibrillation (HCC), H/O mitralvalve replacement with mechanical valve * DERMATOPATHOLOGY(Performed 05/03/2018) * PT-INR(Performed 04/29/2018) Performed for Anticoagulation goal of INR 2.5 to 3.5, Chronic atrial fibrillation (HCC), H/O mitralvalve replacement with mechanical valve * PT-INR(Performed 04/23/2018) Performed for Anticoagulation goal of INR 2.5 to 3.5, Chronic atrial fibrillation (HCC), H/O mitralvalve replacement with mechanical valve * PT-INR(Performed 04/08/2018) Performed for Anticoagulation goal of INR 2.5 to 3.5, Chronic atrial fibrillation (HCC), H/O mitralvalve replacement with mechanical valve * PT-INR(Performed 03/29/2018) Performed for Anticoagulation goal of INR 2.5 to 3.5, Chronic atrial fibrillation (HCC), H/O mitralvalve replacement with mechanical valve * PT-INR(Performed 03/21/2018) Performed for Anticoagulation goal of INR 2.5 to 3.5, Chronic atrial fibrillation (HCC), H/O mitralvalve replacement with mechanical valve * VA TTE W/DOPPLER, COMPLETE(Performed 03/15/2018) Performed for Prosthetic mitral valve regurgitation, subsequent encounter, Atrial fibrillation, unspecified type ([facility]) * PT-INR(Performed 03/14/2018) Performed for Anticoagulation goal of INR 2.5 to 3.5, Chronic atrial fibrillation (HCC), H/O mitralvalve replacement with mechanical valve * PT-INR(Performed 03/08/2018) Performed for Anticoagulation goal of INR 2.5 to 3.5, Chronic atrial fibrillation (HCC), H/O mitralvalve replacement with mechanical valve * PT-INR [facility](Performed 02/20/2018) * PT-INR [facility](Performed 02/14/2018) * PT-INR [facility](Performed 02/07/2018) * PT-INR [facility](Performed 01/24/2018) * PT-INR [facility](Performed 01/17/2018) * PT-INR [facility](Performed 01/10/2018) * PT-INR [facility](Performed 01/03/2018) * PT-INR [facility](Performed 12/31/2017) * PT-INR [facility](Performed 12/24/2017) * PT-INR [facility](Performed 12/17/2017) * PT-INR [facility](Performed 12/10/2017) * PROC PACEMAKER DEVICE CHECK (REMOTE)(Performed 12/04/2017) * PT-INR [facility](Performed 12/04/2017) * PT-INR [facility](Performed 11/27/2017) * PT-INR [facility](Performed 11/20/2017) * PT-INR [facility](Performed 11/06/2017) * PT-INR [facility](Performed 10/29/2017) * PT-INR [facility](Performed 10/22/2017) * PT-INR [facility](Performed 10/08/2017) * PT-INR [facility](Performed 09/24/2017) * PT-INR [facility](Performed 09/10/2017) * PT-INR [facility](Performed 09/03/2017) * PT-INR [facility](Performed 08/27/2017) * PROC IMPLANT WEAR CARDIAC DEVICE EVAL(Performed 08/24/2017) * PT-INR [facility](Performed 08/20/2017) * PROC PACEMAKER DEVICE CHECK (REMOTE)(Performed 08/15/2017) * PT-INR [facility](Performed 08/13/2017) * PT-INR [facility](Performed 07/11/2017) * PT-INR [facility](Performed 06/27/2017) * PT-INR [facility](Performed 06/20/2017) * PT-INR [facility](Performed 06/13/2017) * PT-INR [facility](Performed 06/08/2017) * PT-INR [facility](Performed 05/31/2017) * PT-INR [facility](Performed 05/25/2017) * CULTURE URINE(Performed 05/23/2017) * PT-INR [facility](Performed 04/17/2017) * PT-INR [facility](Performed 03/12/2017) * PT-INR [facility](Performed 03/05/2017) * PT-INR [facility](Performed 02/26/2017) * PT-INR [facility](Performed 02/22/2017) * URINALYSIS W/MICROSCOPIC NO CULTURE(Performed 02/13/2017) Performed for Urinary tract infection without hematuria, site unspecified * URINALYSIS MICROSCOPIC ONLY REFLEXED(Performed 02/09/2017) Performed for Acute cystitis without hematuria * URINALYSIS REFLEX MICROSCOPIC REFLEX CULTURE(Performed 02/09/2017) Performed for Acute cystitis without hematuria * CULTURE URINE(Performed 02/09/2017) Performed for Acute cystitis without hematuria * FECAL LEUKOCYTES(Performed 02/09/2017) Performed for Diarrhea, unspecified type * O+P PANEL(Performed 02/09/2017) Performed for Diarrhea, unspecified type * CULTURE STOOL PANEL(Performed 02/09/2017) Performed for Diarrhea, unspecified type * C DIFFICILE TOXIN A+B(Performed 02/09/2017) * SLIDE SCAN HEMATOLOGY(Performed 02/02/2017) Performed for Melena, Chronic atrial fibrillation (HCC), Iron deficiency anemia secondary to blood loss (chronic) * CBC W AUTO DIFFERENTIAL(Performed 02/02/2017) Performed for Melena, Chronic atrial fibrillation (HCC), Iron deficiency anemia secondary to blood loss (chronic) * PT-INR [facility](Performed 01/29/2017) * GLUCOSE ACCUCHECK(Performed 01/27/2017) * GLUCOSE ACCUCHECK(Performed 01/27/2017) * PTT [facility](Performed 01/27/2017) * PT-INR [facility](Performed 01/27/2017) * ADRIANA BLOOD SCREEN(Performed 01/27/2017) * PROTEIN ELECTROPHORESIS WO INTERP BLOOD(Performed 01/27/2017) * SEROTONIN RELEASE ASSAY PANEL(Performed 01/27/2017) * DNA ANTIBODY DOUBLE STRANDED(Performed 01/27/2017) * HEPATITIS C ANTIBODY(Performed 01/27/2017) * HEPATITIS B SURFACE ANTIGEN W RFLX CONFIRMATION(Performed 01/27/2017) * HIV-1 HIV-2 ANTIGEN/ANTIBODY(Performed 01/27/2017) * TRANSFERRIN(Performed 01/27/2017) * IRON BLOOD(Performed 01/27/2017) * KAPPA/LAMBDA LITE CHAIN FREE PANEL(Performed 01/27/2017) * GLOMERULAR BASE MEMBRANE ANTIBODY IGG(Performed 01/27/2017) * BASIC METABOLIC PANEL (CALCIUM TOTAL)(Performed 01/27/2017) * CBC W/O DIFFERENTIAL(Performed 01/27/2017) * HELICOBACTER PYLORI ANTIBODY IGG(Performed 01/27/2017) * ENTAMOEBA HISTOLYTICA ANTIBODY(Performed 01/26/2017) * GLUCOSE ACCUCHECK(Performed 01/26/2017) * GLUCOSE ACCUCHECK(Performed 01/26/2017) * GIARDIA SCREEN DFA(Performed 01/26/2017) * CULTURE STOOL+ E COLI SHIGA-LIKE TOXIN(Performed 01/26/2017) * C DIFFICILE GDH AG + TOXIN A+B(Performed 01/26/2017) * GLUCOSE ACCUCHECK(Performed 01/26/2017) * CULTURE URINE(Performed 01/26/2017) * PROTEIN ELECTROPHORESIS URINE RANDOM(Performed 01/26/2017) * EOSINOPHIL URINE SMEAR(Performed 01/26/2017) * GLUCOSE ACCUCHECK(Performed 01/26/2017) * PTT [facility](Performed 01/26/2017) * PT-INR [facility](Performed 01/26/2017) * HEMOGLOBIN A1C(Performed 01/26/2017) * CBC W/O DIFFERENTIAL(Performed 01/26/2017) * BASIC METABOLIC PANEL (CALCIUM TOTAL)(Performed 01/26/2017) * HEPARIN PLATELET INDUCED ANTIBODY(Performed 01/26/2017) * PTT [facility](Performed 01/25/2017) * GLUCOSE ACCUCHECK(Performed 01/25/2017) * GLUCOSE ACCUCHECK(Performed 01/25/2017) * PTT [facility](Performed 01/25/2017) * PT-INR [facility](Performed 01/25/2017) * GLUCOSE ACCUCHECK(Performed 01/25/2017) * GLUCOSE ACCUCHECK(Performed 01/25/2017) * BASIC METABOLIC PANEL (CALCIUM TOTAL)(Performed 01/25/2017) * CBC W/O DIFFERENTIAL(Performed 01/25/2017) * PTT [facility](Performed 01/25/2017) * PT-INR [facility](Performed 01/25/2017) * PTT [facility](Performed 01/25/2017) * GLUCOSE ACCUCHECK(Performed 01/24/2017) * GLUCOSE ACCUCHECK(Performed 01/24/2017) * PT-INR [facility](Performed 01/24/2017) * GLUCOSE ACCUCHECK(Performed 01/24/2017) * URINALYSIS W/MICROSCOPIC NO CULTURE(Performed 01/24/2017) * SODIUM URINE RANDOM(Performed 01/24/2017) * PROTEIN URINE RANDOM QUANTITATIVE(Performed 01/24/2017) * UREA NITROGEN URINE RANDOM(Performed 01/24/2017) * CREATININE URINE RANDOM(Performed 01/24/2017) * EOSINOPHIL URINE SMEAR(Performed 01/24/2017) * GLUCOSE ACCUCHECK(Performed 01/24/2017) * PT-INR [facility](Performed 01/24/2017) * BASIC METABOLIC PANEL (CALCIUM TOTAL)(Performed 01/24/2017) * CBC W/O DIFFERENTIAL(Performed 01/24/2017) * GLUCOSE ACCUCHECK(Performed 01/23/2017) * GLUCOSE ACCUCHECK(Performed 01/23/2017) * US RETROPERITONEAL COMPLETE(Performed 01/23/2017) * GLUCOSE ACCUCHECK(Performed 01/23/2017) * HAPTOGLOBIN(Performed 01/23/2017) * LDH BLOOD(Performed 01/23/2017) * D-DIMER(Performed 01/23/2017) * FIBRINOGEN ACTIVITY(Performed 01/23/2017) * PTT [facility](Performed 01/23/2017) * C-REACTIVE PROTEIN(Performed 01/23/2017) * OCCULT BLOOD FECES(Performed 01/23/2017) * GLUCOSE ACCUCHECK(Performed 01/23/2017) * BASIC METABOLIC PANEL (CALCIUM TOTAL)(Performed 01/23/2017) * RETIC COUNT(Performed 01/23/2017) * PT-INR [facility](Performed 01/23/2017) * CBC W/O DIFFERENTIAL(Performed 01/23/2017) * GLUCOSE ACCUCHECK(Performed 01/22/2017) * GLUCOSE ACCUCHECK(Performed 01/22/2017) * XR CHEST 2VW(Performed 01/22/2017) * XR FOOT RIGHT 3VW OR MORE(Performed 01/22/2017) * VITAMIN D 1,25 DIHYDROXY(Performed 01/22/2017) * PT-INR [facility](Performed 01/22/2017) * TSH(Performed 01/22/2017) * COMPREHENSIVE METABOLIC PANEL(Performed 01/22/2017) * RBC MORPHOLOGY(Performed 01/22/2017) * CBC W AUTO DIFFERENTIAL(Performed 01/22/2017) * CBC W AUTO DIFFERENTIAL(Performed 01/22/2017) * ECHO COMPLETE(Performed 01/22/2017) * EKG 12-LEAD(Performed 01/22/2017) * PT-INR [facility](Performed 01/17/2017) * PT-INR [facility](Performed 01/10/2017) * CBC W AUTO DIFFERENTIAL(Performed 01/05/2017) * LAB HISTORICAL RESULTS-ONBASE(Performed 01/05/2017) * PT-INR [facility](Performed 01/03/2017) * BASIC METABOLIC PANEL (CALCIUM TOTAL)(Performed 01/03/2017) * CBC W AUTO DIFFERENTIAL(Performed 01/03/2017) * LAB HISTORICAL RESULTS-ONBASE(Performed 01/03/2017) * GLUCOSE ACCUCHECK(Performed 12/28/2016) * GLUCOSE ACCUCHECK(Performed 12/28/2016) * URINALYSIS W/MICROSCOPIC NO CULTURE(Performed 12/27/2016) * GLUCOSE ACCUCHECK(Performed 12/27/2016) * GLUCOSE ACCUCHECK(Performed 12/27/2016) * GLUCOSE ACCUCHECK(Performed 12/27/2016) * GLUCOSE ACCUCHECK(Performed 12/27/2016) * GLUCOSE ACCUCHECK(Performed 12/26/2016) * GLUCOSE ACCUCHECK(Performed 12/26/2016) * XR CHEST 1VW PORTABLE(Performed 12/26/2016) * EP LEAD REVISION RA OR RV(Performed 12/26/2016) * RBC MORPHOLOGY(Performed 12/26/2016) * CBC W AUTO DIFFERENTIAL(Performed 12/26/2016) * CBC W AUTO DIFFERENTIAL(Performed 12/26/2016) * BASIC METABOLIC PANEL (CALCIUM TOTAL)(Performed 12/26/2016) * PT-INR [facility](Performed 12/26/2016) * EKG 12-LEAD(Performed 12/26/2016) * PT-INR [facility](Performed 12/19/2016) * PT-INR [facility](Performed 12/11/2016) * ECHO 2D ONLY WO COLOR OR DOPPLER(Performed 12/05/2016) * CARDIAC ECHOCARDIOGRAM COMPLETE ORDER(Performed 12/01/2016) * PROC IMPLANT WEAR CARDIAC DEVICE EVAL(Performed 11/29/2016) * HEMOGLOBIN A1C - POINT OF CARE (AMB)(Performed 11/23/2016) Performed for Type 2 diabetes mellitus with stage 3 chronic kidney disease, with long-term current use of insulin (HCC) * LAB HISTORICAL RESULTS-ONBASE(Performed 11/06/2016) * ENDOSCOPY, COLON, SCREENING(Performed 10/30/2016) * ENDOSCOPY, COLON, SCREENING(Performed 10/30/2016) * PT-INR [facility](Performed 10/27/2016) * BASIC METABOLIC PANEL (CALCIUM TOTAL)(Performed 10/24/2016) * CCL CATH RIGHT HEART(Performed 10/24/2016) * PT-INR [facility](Performed 10/24/2016) * DIFFERENTIAL MANUAL(Performed 10/24/2016) * CBC W AUTO DIFFERENTIAL(Performed 10/24/2016) * CBC W AUTO DIFFERENTIAL(Performed 10/24/2016) * PATHOLOGY/CYTOLOGY REPORT ORDER(Performed 10/24/2016) * ENDOSCOPY, COLON, SCREENING(Performed 10/23/2016) * PT-INR [facility](Performed 10/16/2016) * PT-INR [facility](Performed 09/11/2016) * ECHO 2D ONLY WO COLOR OR DOPPLER(Performed 08/11/2016) * CARDIAC ECHOCARDIOGRAM COMPLETE ORDER(Performed 08/10/2016) * MAMMO BILAT SCREENING(Performed 08/02/2016) * ECHO 2D ONLY WO COLOR OR DOPPLER(Performed 07/26/2016) * PROC IMPLANT WEAR CARDIAC DEVICE EVAL(Performed 07/26/2016) * LAB HISTORICAL RESULTS-ONBASE(Performed 07/26/2016) * MICROALB/CREAT RATIO URINE RANDOM PANEL(Performed 07/24/2016) Performed for Type 2 diabetes mellitus with stage 3 chronic kidney disease, with long-term current use of insulin (HCC) * LAB HISTORICAL RESULTS-ONBASE(Performed 07/12/2016) * CARDIAC EKG ORDER(Performed 07/10/2016) * CARDIAC RHYTHM STRIP ORDER(Performed 07/10/2016) * CARDIAC PACER/DEFIB ORDER(Performed 07/10/2016) * GLUCOSE - POINT OF CARE(Performed 07/09/2016) * GLUCOSE - POINT OF CARE(Performed 07/09/2016) * PT-INR(Performed 07/09/2016) * RENAL FUNCTION PANEL(Performed 07/09/2016) * MAGNESIUM BLOOD(Performed 07/09/2016) * CBC W AUTO DIFFERENTIAL(Performed 07/09/2016) * GLUCOSE - POINT OF CARE(Performed 07/08/2016) * GLUCOSE - POINT OF CARE(Performed 07/08/2016) * GLUCOSE - POINT OF CARE(Performed 07/08/2016) * GLUCOSE - POINT OF CARE(Performed 07/08/2016) * RESPIRATORY PATHOGEN PANEL BY PCR(Performed 07/08/2016) * EKG 12-LEAD(Performed 07/08/2016) Performed for Dizziness * FOLATE(Performed 07/08/2016) * VITAMIN B12(Performed 07/08/2016) * TROPONIN I(Performed 07/08/2016) * CBC W AUTO DIFFERENTIAL(Performed 07/08/2016) * PT-INR(Performed 07/08/2016) * TROPONIN I(Performed 07/08/2016) * TROPONIN I(Performed 07/08/2016) * TROPONIN I(Performed 07/07/2016) * GLUCOSE - POINT OF CARE(Performed 07/07/2016) * CT ANGIO BRAIN AND NECK(Performed 07/07/2016) Performed for Dizziness, Ethmoid sinusitis, unspecified chronicity, Elevated blood pressure, Vertigo, Anxiety states, Renal insufficiency * CT HEAD WO CONTRAST(Performed 07/07/2016) Performed for Dizziness * URINALYSIS REFLEX MICROSCOPIC REFLEX CULTURE(Performed 07/07/2016) * NT-PRO BNP(Performed 07/07/2016) * COMPREHENSIVE METABOLIC PANEL(Performed 07/07/2016) * TROPONIN I(Performed 07/07/2016) * XR CHEST 2VW(Performed 07/07/2016) Performed for Dizziness * EKG 12-LEAD(Performed 07/07/2016) Performed for Dizziness * GLUCOSE - POINT OF CARE(Performed 07/07/2016) * PTT(Performed 07/07/2016) * PT-INR(Performed 07/07/2016) * CBC W AUTO DIFFERENTIAL(Performed 07/07/2016) * OXYGEN(Performed 07/07/2016) * IMAGING/RADIOLOGY/XRAY RESULTS ORDER(Performed 07/03/2016) * HEMOGLOBIN A1C - POINT OF CARE (AMB)(Performed 05/11/2016) Performed for Type 2 diabetes mellitus with stage 3 chronic kidney disease (HCC) * HM DIABETES EYE EXAM(Performed 03/13/2016) * HEMOGLOBIN A1C - POINT OF CARE (AMB)(Performed 11/09/2015) * URINE MICROSCOPIC ONLY REFLEX TO CULTURE(Performed 09/18/2015) * URINALYSIS REFLEX MICROSCOPIC REFLEX CULTURE(Performed 09/18/2015) * CULTURE URINE(Performed 09/18/2015) * XR CHEST 1VW PORTABLE(Performed 09/18/2015) Performed for SOB (shortness of breath) * EKG 12-LEAD(Performed 09/18/2015) Performed for SOB (shortness of breath) * CBC W AUTO DIFFERENTIAL(Performed 09/18/2015) * PT-INR(Performed 09/18/2015) * MAGNESIUM BLOOD(Performed 09/18/2015) * COMPREHENSIVE METABOLIC PANEL(Performed 09/18/2015) * B-TYPE NATRIURETIC PEPTIDE(Performed 09/18/2015) * TROPONIN I(Performed 09/18/2015) * BASIC METABOLIC PANEL (CALCIUM TOTAL)(Performed 07/20/2015) Performed for Abnormal laboratory test result * ADRIANA BLOOD SCREEN W/REFLEX TITER(Performed 06/29/2015) Performed for Muscle weakness (generalized) * CK BLOOD(Performed 06/29/2015) Performed for Muscle weakness (generalized) * TSH(Performed 06/29/2015) Performed for Type II or unspecified type diabetes mellitus without mention of complication, not stated as uncontrolled (HCC) * LIPID PROFILE(Performed 06/29/2015) Performed for Type II or unspecified type diabetes mellitus without mention of complication, not stated as uncontrolled (HCC) * CBC W AUTO DIFFERENTIAL(Performed 06/29/2015) Performed for Type II or unspecified type diabetes mellitus without mention of complication, not stated as uncontrolled (HCC) * COMPREHENSIVE METABOLIC PANEL(Performed 06/29/2015) Performed for Type II or unspecified type diabetes mellitus without mention of complication, not stated as uncontrolled (HCC) * URIC ACID BLOOD(Performed 06/29/2015) Performed for History of gout * C-REACTIVE PROTEIN SENSITIVE(Performed 06/29/2015) Performed for Non-ischemic cardiomyopathy (HCC), Muscle weakness (generalized) * ERYTHROCYTE SEDIMENTATION RATE(Performed 06/29/2015) Performed for Non-ischemic cardiomyopathy (HCC), Muscle weakness (generalized) * HEMOGLOBIN A1C - POINT OF CARE (AMB)(Performed 06/24/2015) Performed for Type II or unspecified type diabetes mellitus without mention of complication, not stated as uncontrolled ([facility]) * DERMATOPATHOLOGY(Performed 06/24/2015) * DERMATOPATHOLOGY(Performed 06/24/2015) * HM DIABETES EYE EXAM(Performed 02/25/2015) * MICROALB/CREAT RATIO URINE RANDOM PANEL(Performed 02/23/2015) Performed for Type II or unspecified type diabetes mellitus with renal manifestations, not stated as uncontrolled ([facility]) * HEMOGLOBIN A1C - POINT OF CARE (AMB)(Performed 02/17/2015) Performed for Type II or unspecified type diabetes mellitus with renal manifestations, not stated as uncontrolled ([facility]) * LAB RESULTS ORDER(Performed 02/05/2015) * URIC ACID BLOOD(Performed 11/05/2014) Performed for Gout, unspecified * HEMOGLOBIN A1C - POINT OF CARE (AMB)(Performed 11/05/2014) Performed for Type II DM with renal manifestations, uncontrolled(250.42) * CULTURE AFB+SMEAR(Performed 10/31/2014) Performed for COPD (chronic obstructive pulmonary disease) ([facility]) * BRONCHOSCOPY (RIGID/FLEXIBLE)(Performed 10/30/2014) Performed for Other Dyspnea And Respiratory Abnormality * DIFFERENTIAL MANUAL FLUID(Performed 10/30/2014) Performed for COPD (chronic obstructive pulmonary disease) ([facility]) * CELL COUNT W DIFFERENTIAL FLUID(Performed 10/30/2014) Performed for COPD (chronic obstructive pulmonary disease) ([facility]) * CULTURE FUNGUS OTHER+FUNGUS SMEAR(Performed 10/30/2014) Performed for COPD (chronic obstructive pulmonary disease) ([facility]) * CULTURE BRONCHOALVEOLAR LAVAGE QNT+GRAM STAIN(Performed 10/30/2014) Performed for COPD (chronic obstructive pulmonary disease) ([facility]) * CULTURE AFB+SMEAR(Performed 10/30/2014) Performed for COPD (chronic obstructive pulmonary disease) ([facility]) * CULTURE FUNGUS OTHER+FUNGUS SMEAR(Performed 10/30/2014) Performed for COPD (chronic obstructive pulmonary disease) ([facility]) * CULTURE BRONCHIAL WASHING+GRAM STAIN(Performed 10/30/2014) Performed for COPD (chronic obstructive pulmonary disease) ([facility]) * CYTOLOGY NON-RN SURGICAL PCU PANEL ([facility])(Performed 10/30/2014) Performed for COPD (chronic obstructive pulmonary disease) ([facility]) * PROC BRONCHOSCOPY(Performed 10/30/2014) * GLUCOSE - POINT OF CARE(Performed 10/30/2014) * CT CHEST WO CONT AND HIRES(Performed 10/09/2014) Performed for Restrictive lung disease * AMB REQUEST FOR SUPPLY/EQUIP(Performed 09/16/2014) * NOCTURNAL DESATURATION STUDY(Performed 09/10/2014) * IGE BLOOD(Performed 09/08/2014) Performed for Cough, Unspecified asthma (HCC), MAC (obstructive sleep apnea) * B-TYPE NATRIURETIC PEPTIDE(Performed 09/08/2014) Performed for Cough, Unspecified asthma (HCC), MAC (obstructive sleep apnea) * IMMUNOGLOBULINS IGG/IGM/IGA PANEL(Performed 09/08/2014) Performed for Cough, Unspecified asthma (HCC), MAC (obstructive sleep apnea) * XR CHEST 2VW(Performed 09/08/2014) Performed for History of asthma * AMB REQUEST FOR SUPPLY/EQUIP(Performed 08/12/2014) * FRACTIONAL EXHALED NITRIC OXIDE(Performed 07/30/2014) * PFT-LAB(Performed 07/30/2014) Performed for COPD (chronic obstructive pulmonary disease) (HCC), MAC (obstructive sleep apnea), History of asthma, Dyspnea on exertion * ALPHA-1 ANTITRYPSIN (AAT) MUTATION ANALYSIS(Performed 07/29/2014) * LAB RESULTS ORDER(Performed 07/22/2014) * MAMMOGRAPHY ORDER(Performed 05/25/2014) * CREATININE BLOOD (EXTERNAL RESULT ENTRY)(Performed 05/16/2014) * HEMOGLOBIN A1C (EXTERNAL RESULT ENTRY)(Performed 05/16/2014) * LDL CHOLESTEROL (EXTERNAL RESULT ENTRY)(Performed 05/16/2014) * LIPID PROFILE(Performed 05/16/2014) * LAB RESULTS ORDER(Performed 05/16/2014) * PULMONARY FUNCTION(Performed 05/08/2014) * CK BLOOD(Performed 04/21/2014) Performed for Leg weakness * LAB RESULTS ORDER(Performed 03/30/2014) * CREATININE BLOOD (EXTERNAL RESULT ENTRY)(Performed 02/13/2014) * HEMOGLOBIN A1C (EXTERNAL RESULT ENTRY)(Performed 02/13/2014) * LDL CHOLESTEROL (EXTERNAL RESULT ENTRY)(Performed 02/13/2014) * MICROALB/CREAT RATIO URINE RANDOM PANEL(Performed 01/30/2014) Performed for Type II or unspecified type diabetes mellitus without mention of complication, uncontrolled * CBC W AUTO DIFFERENTIAL(Performed 01/30/2014) Performed for Fatigue * TSH(Performed 01/30/2014) Performed for Fatigue * XR CHEST 2VW(Performed 01/06/2014) Performed for Bronchitis, acute * XR CHEST 2VW(Performed 01/01/2014) * DERMATOPATHOLOGY(Performed 11/04/2013) * PT WHOLE BLOOD - POINT OF CARE (AMB)(Performed 10/22/2013) Performed for Encounter for long-term (current) use of other medications, Warfarin anticoagulation * HEMOGLOBIN A1C - POINT OF CARE (AMB)(Performed 10/22/2013) Performed for Type II or unspecified type diabetes mellitus without mention of complication, uncontrolled * DERMATOPATHOLOGY(Performed 08/12/2013) * LAB RESULTS ORDER(Performed 06/19/2013) * HEMOGLOBIN A1C - POINT OF CARE (AMB)(Performed 03/31/2013) Performed for Type Ii Or Unspecified Type Diabetes Mellitus Without Mention Of Complication, Uncontrolled * PT WHOLE BLOOD - POINT OF CARE (AMB)(Performed 03/31/2013) Performed for A-fib (HCC) * XR CHEST 2VW(Performed 03/17/2013) * LAB RESULTS ORDER(Performed 01/30/2013) * FERRITIN(Performed 11/28/2012) Performed for Iron deficiency anemia * IRON + TIBC PANEL(Performed 11/28/2012) Performed for Iron deficiency anemia * CBC W AUTO DIFFERENTIAL(Performed 11/28/2012) Performed for Iron deficiency anemia * PT WHOLE BLOOD - POINT OF CARE (AMB)(Performed 11/28/2012) Performed for A-fib (HCC) * HEMOGLOBIN A1C - POINT OF CARE (AMB)(Performed 11/28/2012) Performed for Type II or unspecified type diabetes mellitus without mention of complication, not stated as uncontrolled (HCC) * MICROALB/CREAT RATIO URINE RANDOM PANEL(Performed 07/23/2012) Performed for Unspecified essential hypertension, Type II or unspecified type diabetes mellitus without mention of complication, not stated as uncontrolled (HCC) * METHYLMALONIC ACID BLOOD(Performed 07/23/2012) Performed for Vitamin B12 deficiency * IRON + TIBC PANEL(Performed 07/18/2012) Performed for Iron deficiency anemia * CBC W AUTO DIFFERENTIAL(Performed 07/18/2012) Performed for Iron deficiency anemia * FERRITIN(Performed 07/18/2012) Performed for Iron deficiency anemia * VITAMIN B12 FOLATE PANEL(Performed 07/18/2012) Performed for Iron deficiency anemia * RETIC COUNT(Performed 07/18/2012) Performed for Iron deficiency anemia * BASIC METABOLIC PANEL (CALCIUM TOTAL)(Performed 06/10/2012) Performed for Unspecified essential hypertension * PT WHOLE BLOOD - POINT OF CARE (AMB)(Performed 06/06/2012) Performed for A-fib (HCC) * HEMOGLOBIN A1C - POINT OF CARE (AMB)(Performed 06/06/2012) * PATHOLOGY/CYTOLOGY REPORT ORDER(Performed 05/23/2012) * PATHOLOGY/CYTOLOGY REPORT ORDER(Performed 05/23/2012) * ENDOSCOPY, COLON, SCREENING(Performed 05/23/2012) * EKG 12-LEAD(Performed 04/06/2012) Performed for SOB (shortness of breath) * DIGOXIN LEVEL(Performed 04/06/2012) * B-TYPE NATRIURETIC PEPTIDE(Performed 04/06/2012) * TROPONIN I(Performed 04/06/2012) * PT-INR(Performed 04/06/2012) * MAGNESIUM BLOOD(Performed 04/06/2012) * COMPREHENSIVE METABOLIC PANEL(Performed 04/06/2012) * CBC W AUTO DIFFERENTIAL(Performed 04/06/2012) * XR CHEST 2VW(Performed 04/06/2012) Performed for Cough * HEMOGLOBIN A1C - POINT OF CARE (AMB)(Performed 12/05/2011) Performed for DM w/o Complication Type II, Uncontrolled * IRON + TIBC PANEL(Performed 09/06/2011) Performed for Anemia * RETIC COUNT(Performed 09/06/2011) Performed for Anemia * CBC W AUTO DIFFERENTIAL(Performed 09/06/2011) Performed for Anemia * VITAMIN B12 FOLATE PANEL(Performed 09/06/2011) Performed for Anemia * FERRITIN(Performed 09/06/2011) Performed for Anemia * URINE MICROSCOPIC ONLY(Performed 08/30/2011) Performed for Unspecified essential hypertension, Type II or unspecified type diabetes mellitus without mention of complication, uncontrolled * URINALYSIS REFLEX TO MICROSCOPIC NO CULTURE(Performed 08/30/2011) Performed for Unspecified essential hypertension, Type II or unspecified type diabetes mellitus without mention of complication, uncontrolled * CBC W AUTO DIFFERENTIAL(Performed 08/30/2011) Performed for Unspecified essential hypertension, Type II or unspecified type diabetes mellitus without mention of complication, uncontrolled, A-fib (HCC) * COMPREHENSIVE METABOLIC PANEL(Performed 08/30/2011) Performed for Unspecified essential hypertension, Type II or unspecified type diabetes mellitus without mention of complication, uncontrolled, A-fib (HCC) * LAB RESULTS ORDER(Performed 05/11/2011) * MICROALB/CREAT RATIO URINE RANDOM PANEL(Performed 04/04/2011) Performed for DM w/o complication type II (HCC) * HEMOGLOBIN A1C - POINT OF CARE (AMB)(Performed 04/04/2011) Performed for DM w/o complication type II (HCC) * MAMMO BILAT SCREENING(Performed 03/21/2011) * COMPREHENSIVE METABOLIC PANEL(Performed 09/29/2010) Performed for Hyperlipidemia * URINE MICROSCOPIC ONLY(Performed 09/20/2010) Performed for UTI (urinary tract infection) * URINALYSIS REFLEX MICROSCOPIC REFLEX CULTURE(Performed 09/20/2010) Performed for UTI (urinary tract infection) * CULTURE URINE(Performed 09/20/2010) Performed for UTI (urinary tract infection) * FL IVP INTRAVENOUS PYELOGRAM(Performed 08/18/2010) Performed for Kidney stone * ERYTHROCYTE SEDIMENTATION RATE(Performed 08/03/2010) Performed for Malaise and Fatigue * TSH(Performed 08/03/2010) Performed for A-Fib (Hcc), Malaise and Fatigue * COMPREHENSIVE METABOLIC PANEL(Performed 08/03/2010) Performed for A-Fib (Hcc) * CBC W AUTO DIFFERENTIAL(Performed 08/03/2010) Performed for A-Fib (Hcc), Malaise and Fatigue * CBC W AUTO DIFFERENTIAL(Performed 06/29/2010) Performed for Hematuria * CARDIAC EKG ORDER(Performed 06/28/2010) * PT WHOLE BLOOD - POINT OF CARE (AMB)(Performed 06/20/2010) Performed for mitral valve prosthesis, Encounter for Long-Term (Current) Use of Anticoagulants * COMPREHENSIVE METABOLIC PANEL(Performed 06/13/2010) * URINALYSIS REFLEX TO MICROSCOPIC NO CULTURE(Performed 06/13/2010) * CBC W AUTO DIFFERENTIAL(Performed 06/13/2010) * URIC ACID BLOOD(Performed 06/11/2010) Performed for Hematuria, DM w/o Complication Type II (HCC) * BASIC METABOLIC PANEL (CALCIUM TOTAL)(Performed 06/11/2010) Performed for Hematuria, DM w/o Complication Type II (HCC) * URINE MICROSCOPIC ONLY(Performed 06/08/2010) Performed for Hematuria * URINALYSIS REFLEX MICROSCOPIC REFLEX CULTURE(Performed 06/08/2010) Performed for Hematuria * CULTURE URINE(Performed 06/08/2010) Performed for Hematuria * MAMMO SCREENING BILATERAL(Performed 03/01/2010) Performed for Breast Cancer Screening * XR KNEE LEFT 4VW OR MORE(Performed 02/22/2010) Performed for Knee Pain * LAB RESULTS ORDER(Performed 12/24/2009) * PT-INR(Performed 12/14/2009) Performed for S/P Mitral Valve Replacement * PT-INR(Performed 12/10/2009) Performed for S/P MVR (Mitral Valve Replacement) * CK BLOOD(Performed 12/10/2009) Performed for Myalgia * GLUCOSE - POINT OF CARE(Performed 12/06/2009) Performed for DM w/o Complication Type II (HCC) * LAB RESULTS ORDER(Performed 06/10/2009) * CT CORONARY CALCIUM SCORING(Performed 05/25/2009) * HEMOGLOBIN A1C(Performed 03/12/2009) * CBC W AUTO DIFFERENTIAL W PLATELETS(Performed 03/12/2009) * COMPREHENSIVE METABOLIC PANEL(Performed 03/12/2009) * LIPID PROFILE(Performed 03/12/2009) * DEXA BONE DENSITY 2 SITES(Performed 12/16/2008) * CBC W AUTO DIFFERENTIAL(Performed 11/02/2008) * RETIC COUNT(Performed 11/02/2008) * FERRITIN(Performed 09/17/2008) * ALDOLASE(Performed 09/17/2008) * HAPTOGLOBIN(Performed 09/17/2008) * CK BLOOD(Performed 09/17/2008) * ERYTHROCYTE SEDIMENTATION RATE(Performed 09/17/2008) * TELMA-1 ANTIBODY(Performed 09/17/2008) * ADRIANA BLOOD SCREEN W/REFLEX TITER(Performed 09/17/2008) * TSH(Performed 09/17/2008) * IRON + TIBC PANEL(Performed 09/17/2008) * COMPREHENSIVE METABOLIC PANEL(Performed 09/17/2008) * CBC W AUTO DIFFERENTIAL(Performed 09/17/2008) * URINALYSIS - POINT OF CARE (AMB) [facility](Performed 11/26/1998) * PT-INR [facility](Performed 11/26/1998) * PT-INR [facility](Performed 11/26/1998) * PT-INR [facility](Performed 11/26/1998) * PT-INR [facility](Performed 11/26/1998) * PT-INR [facility](Performed 11/26/1998) * PT-INR [facility](Performed 11/26/1998) * PT-INR [facility](Performed 11/26/1998) * PT-INR [facility](Performed 11/26/1998) * PT-INR [facility](Performed 11/26/1998) * PT-INR [facility](Performed 11/26/1998) * PT-INR [facility](Performed 11/26/1998) * PT-INR [facility](Performed 11/26/1998) * PT-INR [facility](Performed 11/26/1998) * PT-INR [facility](Performed 11/26/1998) Results * DERMATOPATHOLOGY (03/24/2024 10:10 AM CDT) Only the most recent of12 resultswithin the time period is included. Case Report Dermatopathology Report ? Case: [id number] ? Authorizing Provider: ??Vashti Milan, ?? Collected: ? 03/24/2024 10:10 AM ? Ordering Location: ? [facility] - ??Received: ?03/25/2024 07:13 AM ? DermPath Lab ? Pathologist: ? Meredith Burks, ? MD ? Specimens: ?? A) - Skin, left jewish ? B) - Skin, right chest ? 4 5:05 PM CDT DERMATOPATHOLOGY LABORATORY Final Diagnosis Specimen A. SKIN, left jewish: BENIGN VERRUCOUS KERATOSIS (L82.1) Specimen B. SKIN, right chest: HYPERPLASTIC (HYPERTROPHIC) ACTINIC KERATOSIS (L57.0) 4 5:05 PM T DERMATOPATHOLOGY LABORATORY Clinical History A-B: r/o NMSC 4 5:05 PM T DERMATOPATHOLOGY LABORATORY Gross Description Specimen A: Received is one formalin filled container labeled with the patient's name and designated left jewish. The specimen consists of a shave biopsy measuring 7x5x3 mm. Jar 0. Specimen B: Received is one formalin filled container labeled with the patient's name and designated right chest. The specimen consists of a shave biopsy measuring 7x4x1 mm. Jar 0. 4 5:05 PM CDT DERMATOPATHOLOGY LABORATORY Microscopic Description Specimen A. SKIN, left jewish: Sections show hyperkeratosis, papillomatosis, hypergranulosis, and acanthosis. These histological findings can be seen in a verruca vulgaris or a seborrheic keratosis. Specimen B. SKIN, right chest: There is hyperkeratosis alternating with parakeratosis. There is epidermal hyperplasia with disorderly maturation of keratinocytes with nuclear pleomorphism confined to the lower half of the epidermis. 4 5:05 PM CDT DERMATOPATHOLOGY LABORATORY Disclaimer An external and internal positive and negative controls are appropriate for the histochemical, immunohistochemical and immunofluorescence stain(s) in this case (if any), except where stated explicitly. The performance characteristics of the stain(s) cited in this report were developed and its performance characteristic determined by the Dermatopathology Laboratory at [facility], directed by Dr. Ines Maldonado. These tests need not be, and therefore are not, approved by the [place] Food and Drug Administration. The tests are used for clinical purposes. Billing Codes Specimen Charges Stain Charges 92886 72771 1 1 4 5:05 PM CDT DERMATOPATHOLOGY LABORATORY Embedded Images 4 5:05 PM CDT DERMATOPATHOLOGY LABORATORY Pathology/Cytology TISSUE SPECIMEN FROM SKIN / Unknown 03/24/2024 10:10 AM CDT 03/25/2024 7:13 AM CDT Miscellaneous samples (specimen) TISSUE SPECIMEN FROM SKIN / Unknown 03/24/2024 10:10 AM CDT 03/25/2024 7:13 AM CDT Vashti Milan DO LAB - PATHOLOGY/C YTOLOGY ORDERABLES DERMATOPATHOLOGY LABORATORY [facility] Department of Dermatology [address], [address] [phone] * VA FIT/INSERT INTRAVAG SUPPORT DEVICE (11/23/2021 11:43 AM RESEARCH AND DEVELOPMENT DIRECTOR) Narrative Sarabjit Gonsalves Che, MD - 11/23/2021 11:43 AM RESEARCH AND DEVELOPMENT DIRECTOR Sarabjit Gonsalves Che, MD ? 11/23/2021 11:44 AM #5 incontinence pessary used Sarabjit Gonsalves MD PROCEDURE/MINOR SURG ICAL ORDERABLES * VA FIT/INSERT INTRAVAG SUPPORT DEVICE (10/04/2021 2:45 PM RESEARCH AND DEVELOPMENT DIRECTOR) Narrative Sarabjit Gonsalves Che, MD - 10/04/2021 2:45 PM RESEARCH AND DEVELOPMENT DIRECTOR Sarabjit Gonsalves Che, MD ? 10/04/2021 ??2:45 PM #4 incontinence pessary placed Sarabjit Gonsalves MD PROCEDURE/MINOR SURG ICAL ORDERABLES * VA CYSTOMETROGRAM W/CORRECTIONAL SUPERVISOR&UP, VA INTRAABDOMINAL PRESSURE TEST, VA ANAL/URINARY MUSCLE STUDY (10/04/2021 2:43 PM RESEARCH AND DEVELOPMENT DIRECTOR) Narrative Sarabjit Gonsalves Che, MD - 10/04/2021 2:43 PM RESEARCH AND DEVELOPMENT DIRECTOR Sarabjit Gonsalves Che, MD ? 10/04/2021 ??2:44 PM Multichannel Urodynamic Testing - Procedure Note Indications: Multichannel urodynamic testing is being performed to fully evaluate the patient's voiding dysfunction. The risks, benefits and alternatives have been discussed with emphasis on discomfort and urinary tract infections. Procedure Details: The patient's urethral meatus was cleaned with Betadine (used if not allergic to topical iodine, otherwise hibiclens was used). A 7 Fr. Single sensor air-charged catheter was place into the vagina or into the rectum if the pelvic prolapse required restitution for adequate testing. A 7 Fr. Dual sensor air-charged catheter was inserted into the urethra. During testing, the patient's prolapse was reduced with either procto-swabs, or digitally. Cystometrogram: The bladder was filled with room temperature water at a rate of 100 cc per minute. The patient tolerated this and she was found to have: First sensation (S1) at 12 cc. Sensation of fullness at 158 cc. Maximal cystometric capacity of 456 cc. She does have normal bladder compliance. She does not have loss of urine with a rise in detrusor pressure. Valsalva leak point pressure (VLPP): VLPP at 150 cc: 107 VLPP at HALFWAY : ??40 Urethral pressure profilometry (UPP): Maximal urethral closure pressure (MUCP): 22 Leakage amount: Moderate amount Voiding pressure study (CORRECTIONAL SUPERVISOR): She voided via detrusor contraction and urethral relaxation. Her maximal detrusor during void (Pdet max) was 20 cm water. Her void was not phasic. Her post void residual by calculation during the voiding pressure study was 0 cc. ?? Electromyolography (EMG) EMG patches were placed perianally and on the leg for ground. Normal response with squeeze and relaxation was noted. Normal EMG was noted with appropriate relaxation with study. Sarabjit Gonsalves MD PROCEDURE/MINOR SURG ICAL ORDERABLES * (ABNORMAL) URINALYSIS AUTO - POINT OF CARE (AMB) [facility] (10/04/2021) Only the most recent of2 resultswithin the time period is included. Glucose UA +++ Bilirubin UA POCT neg Ketones UA POCT neg Specific [place] UA 1.025 Blood Urine POCT neg pH UA 5.5 Protein UA neg Urobilinogen UA 0.2 Nitrite UA neg WBC UA neg Urine URINE / Unknown 10/04/2021 Sarabjit Gonsalves MD LAB - POINT OF CARE ORDERABLES * (ABNORMAL) PT-INR (06/07/2021 1:42 PM CDT) Only the most recent of120 resultswithin the time period is included. INR 4.1(H) [facility] Comment: Reference Range ? 0.9-1.1 Moderate-intensity Warfarin Therapy 2.0-3.0 Higher-intensity Warfarin Therapy ?? 3.0-4.0 PT 38.3(H) 9.0 - 11.5 sec [facility] Comment: For additional information, please refer to http://education.Cody/faq/BJA165 (This link is being provided for informational/ educational purposes only.) REPORT COMMENT: FASTING:NO Test Performed at: [facility] ??[id number] MARTINA GARRETT MD Blood BLOOD SPECIMEN / Unknown 06/07/2021 1:42 PM CDT 06/07/2021 1:43 PM CDT Lissette ALEXANDER LAB - COAGULATION ORDERABLES [address] [address] * VA PM DEVICE INTERROGATE REMOTE, VA PM/ICD REMOTE TECH SERV (05/16/2021 9:00 AM CDT) Narrative Crystal Bear APRN-CNP - 05/16/2021 9:00 AM CDT Crystal Bear APRN-CNP ? 05/16/2021 ??9:05 AM Kay Winn is undergoing remote device monitoring. ?? Interrogation of patient's pacemaker was performed with results as follows: Device: ??Medtronic Adapta single chamber pacemaker Mode: VVIR 60-130 bpm Presenting EGM: Ventricular paced rhythm Battery: 2.73 Volts; Estimated longevity 2.5 years Percent Paced: ??99.8% in ventricle Sensing: ??R-waves 5.6 mV Impedance: ??Right Ventricular 517 ohms Threshold: ??Right Ventricular 0.375 V @ 0.4 ms Events: None Impression: ??Normal Device Function. Kay Winn notified this office that she will follow up with a local data management associate. ??Thank you for allowing me to participate in the care of your patient. ??If you have any questions or concerns please do not hesitate to contact me. Crystal ALEXANDER PROCEDURE/[place] NOR SURGICAL ORDERABLES * CARDIAC PROCEDURE ORDER (04/26/2021) Only the most recent of8 resultswithin the time period is included. Narrative 04/26/2021 Ordered by an unspecified provider. Scanned Document CARDIAC SERVICES ORD ERABLES * VA PM DEVICE INTERROGATE REMOTE, VA PM/ICD REMOTE TECH SERV (02/08/2021 12:18 PM CDT) Narrative Crystal Bear APRN-CNP - 02/08/2021 12:18 PM CDT Crystal Bear APRN-CNP ? 02/08/2021 12:28 PM Kay Winn is undergoing remote device monitoring. ?? Interrogation of patient's pacemaker was performed with results as follows: Device: ??Medtronic Adapta single chamber pacemaker Mode: VVIR 60-130 bpm Presenting EGM: Ventricular paced rhythm Battery: 2.74 Volts; Estimated longevity 2.5 years Percent Paced: ??99.9% in ventricle Sensing: ??R-waves 5.6 mV Impedance: ??Right Ventricular 525 ohms Threshold: ??Right Ventricular 0.5 V @ 0.4 ms Events: None Impression: ??Normal Device Function. Kay Winn will follow up with a remote check in 3 months. ??Thank you for allowing me to participate in the care of your patient. ??If you have any questions or concerns please do not hesitate to contact me. Crystal Bear MANAGER QUANTITATIVE-CREDIT UNION EXAMINER PROCEDURE/[place] NOR SURGICAL ORDERABLES * VA PM DEVICE INTERROGATE REMOTE, VA PM/ICD REMOTE TECH SERV (11/22/2020 2:55 PM RESEARCH AND DEVELOPMENT DIRECTOR) Narrative Crystal Bear, JULIÁN-CREDIT UNION EXAMINER - 11/22/2020 2:55 PM RESEARCH AND DEVELOPMENT DIRECTOR Crystal Bear, MANAGER QUANTITATIVE-MIGUEL ? 11/22/2020 ??2:58 PM Kay Winn is undergoing remote device monitoring. ?? Interrogation of patient's pacemaker was performed with results as follows: Device: ??Medtronic Adapta single chamber pacemaker Mode: VVIR 60-130 bpm Presenting EGM: Ventricular paced rhythm Battery: 2.74 Volts; Estimated longevity 3 years Percent Paced: ??99.9% in ventricle Sensing: ??R-waves Not measured Impedance: ??Right Ventricular 518 ohms Threshold: ??Right Ventricular 0.5 V @ 0.4 ms Events: None Impression: ??Normal Device Function. Kay Winn will follow up with a remote check in 3 months. ??Thank you for allowing me to participate in the care of your patient. ??If you have any questions or concerns please do not hesitate to contact me. Crystal Bear MANAGER QUANTITATIVE-CREDIT UNION EXAMINER PROCEDURE/[place] NOR SURGICAL ORDERABLES * IMAGING RADIOLOGY XRAY RESULTS ORDER (11/20/2020) Only the most recent of2 resultswithin the time period is included. Anatomical Region Laterality Modality Other Provider Unknown IMAGING * VA INSERT NON-INDWELLING BLADDER (09/20/2020 12:52 PM CDT) Narrative Kristi Valverde MD - 09/20/2020 12:52 PM CDT Kristi Valverde MD ? 09/20/2020 12:59 PM Procedure note: Straight catheterization was performed after swabbing the urethra with betadine. A 14 Fr urethral catheter was inserted without difficulty and the bladder was drained for 20 mL. The patient tolerated the procedure well. ?? Kristi Valverde MD PROCEDURE/MINOR CASSIE GICAL ORDERABLES * VA TTE W/DOPPLER, COMPLETE (07/21/2020 3:28 PM CDT) Only the most recent of3 resultswithin the time period is included. Narrative Parul Jovel MD - 07/21/2020 3:28 PM CDT Parul Jovel MD ? 07/27/2020 ??9:32 AM [place] [id number] CARDIOLOGY 2-D & M-Mode Echocardiogram Report Color Flow Doppler Report Patients Name: Kay Winn ?: 1945 Age: [age] year old Gender: female ?? Date of Test: ??07/21/2020 Referring Physician: Paramjit Escobar MD [address] [facility] [address] [place] [address] Primary Care Physician: Juana Mesa MD Introduction: Kay Winn is a 75 year old female presenting with atrial fibrillation. Indication: atrial fibrillation Chamber Measurements LV Internal Dimension Systole (cm): 2.3 cm LV Internal Dimension Diastole (cm): 1.2 cm Septal Thickness (cm): 1.1 cm Aortic Root Measurement (cm): 2.3 cm Left Atrium Measurement (cm): 5.6 cm LVOT Diameter (cm): 2.1 cm Ejection Fraction 60% Color Flow and Doppler Waveform Analysis Aortic Velocities: AV Max (m/s): 2.9 m/s LVOT max (m/s): 0.9 m/s Mitral Velocities: E (m/s): 1.3 m/s A (m/s): 0.4 m/s Tricuspid Velocities: PulmonicVelocities: Max Pulmonic Valve Velocity (m/s): 1.2 m/s OVERALL INTERPRETATION: - Technically difficult study. - Rhythm is indeterminate. - There is left ventricular hypertrophy. ??Normal systolic function without regional wall motion abnormalities; however endocardial definition is poor. Ejection fraction is estimated to be 55-60%. - Indeterminate ??LV diastolic function. - Normal right ventricular size and systolic function. RV wire is present. - Moderate pulmonary hypertension; estimated RVSP 55 mmHg (assuming an RA pressure of 5 mmHg). ??IVC not well visualized. ?? - Left atrial size is not well visualized. ??Right atrial size is enlarged. - Not well visualized ??aortic valve. ??Mean AV gradient is 21 mmHg. ??Peak AV velocity is 2.95 m/s. ??There is likely at least mild aortic stenosis. ??AV area not calculated due to unreliable data (LVOT VTI and LVOT diameter not well measured on current study). ??No aortic regurgitation. ?? - Status post mechanical mitral valve replacement (uknown valve leasing specialist/size). ??The prosthesis is poorly visualized; grossly normal leaflet motion and no abnormal rocking of the prosthesis. ?? No mitral regurgitation. Mean mitral valve gradient is 3.4 mmHg (at 63 bpm). - Normal tricuspid valve structure. ??Moderate-severe tricuspid regurgitation. - Normal pulmonary valve structure with normal velocities. Mild pulmonary insufficiency. - Normal pericardium. - Normal aortic root. ??Measures 3.0 at the sinus of Valsalva. Electronically signed by: Parul Jovel MD Date of Interpretation: 07/27/20 ?Date of Final Report: 07/27/20 Paramjit Escobar MD ECG ORDERABLES * LAB RESULTS ORDER (07/06/2020 11:56 AM CDT) Only the most recent of26 resultswithin the time period is included. Narrative 07/06/2020 11:56 AM CDT Ordered by an unspecified provider. Scanned Document LAB - THERAPEUTIC DR YING MONITORING ORDERABLES * CARDIAC EKG ORDER (02/05/2020 12:17 PM CDT) Only the most recent of3 resultswithin the time period is included. Narrative 02/05/2020 12:17 PM CDT Ordered by an unspecified provider. Scanned Document CARDIAC SERVICES ORD ERABLES * [facility] PM DEVICE INTERROGATE REMOTE, [place] PM/ICD REMOTE TECH SERV (01/28/2020 2:01 PM RESEARCH AND DEVELOPMENT DIRECTOR) Narrative Crystal Bear APRN-MIGUEL - 01/28/2020 2:01 PM RESEARCH AND DEVELOPMENT DIRECTOR Crystal Bear APRN-MIGUEL ? 01/28/2020 ??2:03 PM Remote interrogation of patient's pacemaker was performed on 01/13/20 with results as follows: Device: ??Medtronic Adapta single chamber pacemaker Mode: VVIR 60-130 bpm Battery: 2.75 Volts; Estimated longevity 4 years Percent Paced: ??99.7% in ventricle Sensing: ??R-waves 5.6 mV Impedence: ??Right Ventricular 493 ohms Threshold: ??Right Ventricular 0.5 V @ 0.4 ms Events: None Impression: ??Normal Device Function. Kay Blair Pa will follow up in clinic in 3 months. ??Thank you for allowing me to participate in the care of your patient. ?? If you have any questions or concerns please do not hesitate to contact me. Crystal ALEXANDER PROCEDURE/[place] NOR SURGICAL ORDERABLES * Implant Device Check (Office) (10/14/2019 1:14 PM RESEARCH AND DEVELOPMENT DIRECTOR) Narrative Lissette Platt APRN-CNP - 10/14/2019 1:14 PM RESEARCH AND DEVELOPMENT DIRECTOR Lissette Platt APRN-CNP ? 10/14/2019 ??1:32 PM Kay Pinto Pa presented to device clinic for follow up of the patient's Medtronic PPM. ??Interrogation was performed with results as follows: Device: ??Medtronic PPM Mode: VVIR Battery: 2.75 Volts; Estimated longevity 4.5 yrs Percent Paced: ??99.9% in ventricle Sensing: R-wavesV paced 30 mV Impedence: ?? Right Ventricular 501ohms Threshold: ?? Right Ventricular 0.75 V @ 0.4 ms Events: Perm. AF Changes: None Impression: ??Normal Device Function. Kay Blair Pa will follow up with a remote check in 3 months and a follow-up in device clinic in 6 months. ??Thank you for allowing me to participate in the care of your patient. ??If you have any questions or concerns please do not hesitate to contact me. Lissette ALEXANDER PROCEDURE/MINOR S URGICAL ORDERABLES * [facility] PM DEVICE INTERROGATE REMOTE, [place] PM/ICD REMOTE TECH SERV (07/26/2019 1:21 PM CDT) Narrative Marina Elliott APRN-CNP - 07/26/2019 1:21 PM CDT Marina Elliott, MANAGER QUANTITATIVE-CREDIT UNION EXAMINER ? 07/26/2019 ??1:37 PM [facility] 07/09/19 reveals no tachyarrhythmias. V paced 99.9%. Battery voltage, lead impedance, pacing threshold WNL. No intrinsic R to measure. Estimated battery longevity 5 yr(see printout in media) Mairna Elliott MANAGER QUANTITATIVE-CREDIT UNION EXAMINER PROCEDURE/M INOR SURGICAL ORDERABLES * ECHO STRESS COLOR FLOW AND DOPPLER (07/16/2019 4:26 PM CDT) Anatomical Region Laterality Modality Echo 07/16/2019 1:27 PM CDT Narrative Procedure Note Michael Fletcher MD - 09/17/2019 Paramjit Escobar MD ECHOCARDIOGRAPHY RAD IANT * ECHO STRESS W BICYCLE (07/16/2019 3:48 PM CDT) Anatomical Region Laterality Modality Echo 07/16/2019 3:05 PM CDT Narrative Procedure Note Michael Fletcher MD - 09/17/2019 Paramjit Escobar MD ECHOCARDIOGRAPHY RAD IANT * CCL CARDIAC CATH LEFT (05/09/2019 10:44 AM CDT) Anatomical Region Laterality Modality Chest X-Ray Angiograph y Narrative 05/11/2019 8:56 PM CDT [facility] Cardiac Catheterization Procedure Note Patient: Kay Winn Age: [age] year old Date of : 1945 Date of Admission: 05/09/2019 Procedure Date: 05/09/19 FELLOW / EMERGENCY SERVICES DIRECTOR: Vince Canas MD ATTENDING PHYSICIAN: Néstor Perry MD PREVIOUS STRESS STUDIES WITHIN 6 MONTHS: N/A DIAGNOSTIC APPROPRIATENESS CRITERIA: HISTORY: J.B. Is 73 y/o F with PMH significant non-ischemic cardiomyopathy, coronary artery disease, mechanical mitral valve replacement, chronic atrial fibrillation, type II diabetes mellitus, gastric ulcer, complete AV block s/p PPM, aortic valve stenosis, chronic kidney disease stage III, and CVA who presents for scheduled coronary angiography for pre-operative aortic valve evaluation. ACCESS SITE(S): ?? right radial artery PROCEDURAL OVERVIEW: After obtaining informed consent and positioning the patient on the catheterization table, a timeout was performed to confirm the patient? s name, date of , and procedure. ??Sedation was initiated and the patient was prepped and draped using standard sterile technique. ?? Lidocaine was used for local anesthesia over the access site, after which the vessel was accessed and a sheath was placed using the modified Seldinger technique. ??Access was uncomplicated. Intra-arterial verapamil and intravenous heparin were administered to minimize risk of radial artery spasm or occlusion. Coronary angiography was performed using 5F Tig and 5 FL3.5 catheter(s). ??At the conclusion of the procedure, hemostasis was achieved using a radial compression device after removal of all catheters, wires, and sheaths. ?? SEDATION: Moderate sedation on this adult patient was ordered by Dr. Perry, administered intravenously in their presence, and monitored by the procedure nurse as an independent trained observer who was present throughout the procedure. The following parameters were monitored: oxygen saturation, heart rate, blood pressure, and response to care. Intra-service sedation start time was 10:08 and end time was 10:30 during which the attending was present. Total physician intra-service sedation time was 22 minutes. For details on pre-moderate sedation and post-moderate sedation patient evaluation, please review the evaluation forms in [facility]. For details on monitored clinical parameters during the intra-service sedation time, please review the procedure nurse documentation in [facility]. COMPLICATIONS: None BLOOD LOSS: Minimum CONTRAST TOTAL: 30 cc ANGIOGRAPHY: ?i. ?Left main: Large caliber vessel, angiographically free of disease. Bifurcating into Left anterior descending artery and left circumflex artery. ??ii. ?? LAD: Medium caliber vessel with minimal luminal irregularities in the distal segment. Branching Diagonal 1 is small caliber vessel with mild disease in proximal segment. Diagonal 2 is small caliber with 50% lesion at its ostium. ??iii. ?? LCx: Non-dominant, medium caliber vessel which tapers into small vessel as it courses through AV groove, angiographically free of disease. Branching OM1 is medium caliber vessel without significant disease. ??iv. ?? RCA: Dominant, medium caliber vessel with luminal irregularities measuring up to 10% in the mid segment. Bifurcating into rPL and rPDA, both medium caliber vessels and angiographically free of disease. Fluoroscopy of MV: mechanical valve and leaflets appears moving appropriately and no rocking motion DOMINANCE: Right DIAGNOSTIC INTERPRETATIONS: 1. Mild non-obstructive coronary artery disease. RECOMMENDATIONS AFTER DIAGNOSTIC CATHETERIZATION: ?? Medical management of nonobstructive CAD. Aspirin 81 mg QDAY indefinitely. Aggressive modification of atherosclerotic risk factors. No cardiac contraindication to proceeding with aortic valve evaluation. Vince Canas MD 05/09/2019 I was present for the entirety of the described procedure. Néstor Perry MD Paramjit Escobar MD CARDIAC PERSONAL CLOTHING LAUNDRY AIDE RAD IANT * (ABNORMAL) CBC W/O DIFFERENTIAL (05/09/2019 7:24 AM CDT) Only the most recent of6 resultswithin the time period is included. WBC 8.4 3.5 - 10.5 10? 3 /uL 05/09/2019 7:40 AM [facility] RBC 4.10 3.90 - 5.00 10? 6 /uL 05/09/2019 7:40 AM [facility] Hemoglobin 13.2 12.0 - 15.5 g/dL 05/09/2019 7:40 AM [facility] Hematocrit 40.1 35.0 - 45.0 % 05/09/2019 7:40 AM [facility] MCV 97.8(H) 81.0 - 97.0 fL 05/09/2019 7:40 AM [facility] MCH 32.2 28.0 - 34.0 pg 05/09/2019 7:40 AM [facility] MCHC 32.9 32.0 - 36.0 g/dL 05/09/2019 7:40 AM [facility] Platelet Count 157 150 - 400 10? 3 /uL 05/09/2019 7:40 AM [facility] RDW-SD 53.3(H) 36.0 - 50.0 fL 05/09/2019 7:40 AM [facility] RDW-CV 15.0(H) 11.2 - 14.8 % 05/09/2019 7:40 AM CDT [facility] MPV 9.7 9.3 - 12.8 fL 05/09/2019 7:40 AM CDT [facility] nRBC Absolute 0.00 0 10? 3 /uL 05/09/2019 7:40 AM T [facility] nRBC Auto 0.0 0 /100 WBC 05/09/2019 7:40 AM T [facility] Blood BLOOD SPECIMEN / Unknown Venipuncture / Unknown 05/09/2019 7:24 AM CDT 05/09/2019 7:38 AM CDT Néstor Perry MD LAB - HEMATOLOGY OR DERABLES Performing Organization Address [facility] Co de Phone Number [address] [phone] * (ABNORMAL) PT-INR [facility] (05/09/2019 7:23 AM CDT) Only the most recent of71 resultswithin the time period is included. PT 27.1(H) 12.1 - 14.8 Seconds 05/09/2019 7:50 AM T [facility] INR 2.7 See Comment 05/09/2019 7:50 AM [facility] Comment: The suggested therapeutic range for standard coumadin (warfarin) therapy is an INR of 2.0-3.0. For high-risk patients (Mechanical Mitral Valve Prosthesis, etc.), the suggested prophylactic therapeutic range is an INR of 2.5-3.5. Blood BLOOD SPECIMEN / Unknown Venipuncture / Unknown 05/09/2019 7:23 AM CDT 05/09/2019 7:38 AM CDT Néstor Perry MD LAB - COAGULATION O RDERABLES Performing Organization Address [facility]/ZIP Co de Phone Number [address] [phone] * (ABNORMAL) BASIC METABOLIC PANEL (CALCIUM TOTAL) (05/09/2019 7:23 AM CDT) Only the most recent of13 resultswithin the time period is included. BUN 28(H) 7 - 26 mg/dL 05/09/2019 8:06 AM [facility] Creatinine 1.3(H) 0.6 - 1.2 mg/dL 05/09/2019 8:06 AM [facility] Sodium 142 136 - 145 mmol/L 05/09/2019 8:06 AM [facility] Potassium 5.1(H) 3.5 - 4.5 mmol/L 05/09/2019 8:06 AM [facility] Comment: Hemolysis detected in this specimen. Hemolysis is known to cause elevations in this analyte. Caution should be exercised in the interpretation of this result. Recommend repeat testing if clinically indicated. Chloride 106 98 - 107 mmol/L 05/09/2019 8:06 AM [facility] CO2 24 22 - 29 mmol/L 05/09/2019 8:06 AM [facility] Glucose 118(H) 70 - 115 mg/dL 05/09/2019 8:06 AM [facility] Calcium 10.4(H) 8.4 - 10.2 mg/dL 05/09/2019 8:06 AM [facility] Anion Gap 17 8 - 18 05/09/2019 8:06 AM [facility] BUN/Creatinine Ratio 22 7 - 23 05/09/2019 8:06 AM [facility] Osmolality Calculated 301(H) 270 - 300 mOsm/kg 05/09/2019 8:06 AM [facility] eGFR 40(L) >60 mL/min/1. 73 m2 05/09/2019 8:06 AM [facility] Blood BLOOD SPECIMEN / Unknown Venipuncture / Unknown 05/09/2019 7:23 AM CDT 05/09/2019 7:38 AM CDT Néstor Perry MD LAB - CHEMISTRY ORD ERABLES [facility] [address] [place] [address] * CT ANGIO TAVR CHEST ABD PEL (05/02/2019 1:48 PM CDT) Anatomical Region Laterality Modality Computed Tomogra phy 05/02/2019 1:59 PM CDT Impressions 05/06/2019 1:53 PM CDT IMPRESSION: 1. Calcification of the aortic valve, consistent with aortic stenosis. Aortic measurements as above. 2. Tree-in-bud opacities in the right middle lobe may represent infection/inflammation or aspiration. Atelectatic changes are noted in both lung bases. 3. Bilateral renal scarring. Atrophic left kidney with decreased enhancement of the inferior pole. This may represent scarring or may represent sequela of prior infection. Report dictated by Binh Martinez DO (interventional radiology rn). I, Dr. Yolanda MCCARTHY M.D. have personally reviewed and interpreted this examination/study. This report was electronically signed by Yolanda MCCARTHY M.D. ??on 05/06/2019 1:53 PM . Narrative 05/06/2019 1:53 PM CDT EXAMINATION: Computed tomography (CT) of the chest, abdomen, and pelvis with contrast HISTORY: Aortic stenosis TECHNIQUE: CT angiography of the chest, abdomen, and pelvis was performed following the uneventful administration of 100 mL of Isovue-370 intravenous contrast according to a transcatheter aortic valve replacement (TAVR) protocol. FINDINGS: No prior study is available for comparison. Vascular: The ascending aorta measures 2.0 cm at the annulus, 3.1 cm at the sinus of Valsalva, 2.5 cm at the sinotubular junction, and 2.4 cm AP x 2.5 cm TV at the level of the main pulmonary artery. The abdominal aorta measures 1.0 cm AP x 1.1 mm TV just superior to the bifurcation. The right common iliac artery measures 8.6 mm AP x 8.3 mm TV. The right external iliac artery measures 7.2 mm AP x 7.0 cm TV. The right femoral artery measures 5.6 mm AP x 5.9 mm TV at the level of the femoral head. The left common iliac artery measures 7.9 mm AP x 8.0 mm TV . The left external iliac artery measures 6.1 mm AP x 6.1 mm TV. The left femoral artery measures 6.2 mm AP x 6.4 mm TV at the level of the femoral head. There is a left-sided three-vessel aortic arch. The descending thoracic aorta and abdominal aorta are normal in course and caliber. Moderate atherosclerotic calcifications are seen in the aorta. The aortic valve is mildly calcified. The main pulmonary artery is normal in course and is mildly enlarged measuring 3.3 cm. The coronary arteries are atherosclerotic. The branches of the abdominal aorta are patent and well opacified. The left common iliac, external iliac, and femoral arteries are slightly more tortuous compared to the right. Chest: The visible lungs are clear of focal consolidation. Mild tree-in-bud opacities are identified in the periphery of the right middle lobe. Mild atelectasis is noted in the bilateral lower lobes, right greater than left. No pleural effusion or focal pleural thickening is identified. There is no evidence of pneumothorax. No suspicious pulmonary nodule is identified in the visible lungs. The trachea is patent and midline. The heart size is normal. Cardiac leads are seen entering in the right atrium and right ventricle. Epicardial pacer wires are seen. A prosthetic mitral valve is identified. No pericardial effusion is present. No mediastinal, hilar, supraclavicular, or axillary lymphadenopathy is seen. Abdomen/pelvis: The liver, the spleen, the pancreas appear normal in the limits of the angiographic phase examination. The gallbladder is normal. There is no intra or extrahepatic bile duct dilatation. The adrenal glands are normal. The left kidney is mildly atrophic with respect to the right kidney. Bilateral renal scarring is present. There is decreased perfusion of the inferior pole of the left kidney, which may represent scarring or may represent sequela of prior infection. There is no evidence of renal calculus or hydronephrosis. The esophagus and stomach appear normal. A duodenal diverticulum is present. There is sigmoid diverticulosis without evidence of diverticulitis. Otherwise the visualized small bowel and large bowel are normal in caliber without evidence of wall thickening or obstruction. Portions of the descending colon are outside of the [id number]. The appendix is not seen; however, no inflammatory changes are seen in the right lower quadrant. No free air or free fluid is identified within the abdomen. There is no abdominal lymphadenopathy. The urinary bladder is nondistended and appears normal. The uterus is absent. No free fluid is seen within the pelvis. There is no pelvic lymphadenopathy. Bone windows demonstrate no suspicious lytic or blastic lesions. The visible osseous structures are intact. Mild multilevel degenerative changes are noted in the spine. Procedure Note Laurel Mccarthy MD - 05/06/2019 EXAMINATION: Computed tomography (CT) of the chest, abdomen, and pelvis with contrast HISTORY: Aortic stenosis TECHNIQUE: CT angiography of the chest, abdomen, and pelvis wasperformed following the uneventful administration of 100 mL of Isovue-370 intravenous contrast according to a transcatheter aortic valvereplacement (TAVR) protocol. FINDINGS: No prior study is available for comparison. Vascular: The ascending aorta measures 2.0 cm at the annulus, 3.1 cm at the sinusof Valsalva, 2.5 cm at the sinotubular junction, and 2.4 cm AP x 2.5 cm TVat the level of the main pulmonary artery. The abdominal aorta measures 1.0 cm AP x 1.1 mm TV just superior to the bifurcation. The right common iliac artery measures 8.6 mm AP x 8.3 mm TV. The right external iliac artery measures 7.2 mm AP x 7.0 cm TV. The right femoral artery measures 5.6 mm AP x 5.9 mm TV at the level of the femoral head. The left common iliac artery measures 7.9 mm AP x 8.0 mm TV . The left external iliac artery measures 6.1 mm AP x 6.1 mm TV. The left femoral artery measures 6.2 mm AP x 6.4 mm TV at the level ofthe femoral head. There is a left-sided three-vessel aortic arch. The descending thoracic aorta and abdominal aorta are normal in course and caliber. Moderate atherosclerotic calcifications are seen in the aorta. The aortic valveis mildly calcified. The main pulmonary artery is normal in course and is mildly enlarged measuring 3.3 cm. The coronary arteries are atherosclerotic. The branches of the abdominal aorta are patent and well opacified. The left common iliac, external iliac, and femoral arteriesare slightly more tortuous compared to the right. Chest: The visible lungs are clear of focal consolidation. Mild tree-in-bud opacities are identified in the periphery of the right middle lobe. Mild atelectasis is noted in the bilateral lower lobes, right greater than left. No pleural effusion or focal pleural thickening is identified.There is no evidence of pneumothorax. No suspicious pulmonary nodule is identified in the visible lungs. The trachea is patent and midline. The heart size is normal. Cardiac leads are seen entering in the right atrium and right ventricle. Epicardial pacer wires are seen. Aprosthetic mitral valve is identified. No pericardial effusion is present. No mediastinal, hilar, supraclavicular, or axillary lymphadenopathy isseen. Abdomen/pelvis: The liver, the spleen, the pancreas appear normal in the limits of the angiographic phase examination. The gallbladder is normal. There is no intra or extrahepatic bile duct dilatation. The adrenal glands arenormal. The left kidney is mildly atrophic with respect to the right kidney. Bilateral renal scarring is present. There is decreased perfusion of the inferior pole of the left kidney, which may represent scarring or may represent sequela of prior infection. There is no evidence of renal calculus or hydronephrosis. The esophagus and stomach appear normal. A duodenal diverticulum is present. There is sigmoid diverticulosis without evidence of diverticulitis. Otherwise the visualized small bowel and large bowel are normal in caliber without evidence of wall thickening or obstruction. Portions of the descending colon are outside of the [id number]. The appendix is not seen; however, no inflammatory changes are seen in the right lower quadrant. No free air or free fluid is identified within the abdomen. There is no abdominal lymphadenopathy. The urinary bladder is nondistended and appears normal. The uterus is absent. No free fluid is seen within the pelvis. There is no pelvic lymphadenopathy. Bone windows demonstrate no suspicious lytic or blastic lesions. The visible osseous structures are intact. Mild multilevel degenerative changes are noted in the spine. IMPRESSION: 1. Calcification of the aortic valve, consistent with aortic stenosis. Aortic measurements as above. 2. Tree-in-bud opacities in the right middle lobe may represent infection/inflammation or aspiration. Atelectatic changes are noted in both lung bases. 3. Bilateral renal scarring. Atrophic left kidney with decreased enhancement of the inferior pole. This may represent scarring or may represent sequela of prior infection. Report dictated by Binh Martinez DO (interventional radiology rn). I, Dr. Yolanda MCCARTHY M.D. have personally reviewed and interpretedthis examination/study. This report was electronically signed by Yolanda MCCARTHY M.D. on 05/06/2019 1:53 PM . Paramjit Escobar MD CT ORDERABLES * (ABNORMAL) CREATININE BLOOD - POCT (IP) [facility] (05/02/2019 1:35 PM CDT) Pathologist [facility] Creatinine POCT 1.35(A) 0.3 - 1.3 mg/dL [facility] POCT TESTING eGFR POCT 41(A) 60 ml/min [facility] Blood BLOOD SPECIMEN / Unknown 05/02/2019 1:35 PM CDT Paramjit Escobar MD LAB - POINT OF CARE ORDERABLES [facility] POCT TEST[facility] [address] [phone] * (ABNORMAL) CBC WITH DIFFERENTIAL (05/02/2019 12:43 PM CDT) Only the most recent of26 resultswithin the time period is included. [facility] WBC 8.9 3.5 - 10.5 10? 3 /uL 05/02/2019 12:55 PM [facility] RBC 4.09 3.90 - 5.00 10? 6 /uL 05/02/2019 12:55 PM [facility] Hemoglobin 13.3 12.0 - 15.5 g/dL 05/02/2019 12:55 PM [facility] Hematocrit 39.7 35.0 - 45.0 % 05/02/2019 12:55 PM [facility] MCV 97.1(H) 81.0 - 97.0 fL 05/02/2019 12:55 PM [facility] MCH 32.5 28.0 - 34.0 pg 05/02/2019 12:55 PM [facility] MCHC 33.5 32.0 - 36.0 g/dL 05/02/2019 12:55 PM [facility] Platelet Count 166 150 - 400 10? 3 /uL 05/02/2019 12:55 PM [facility] RDW-SD 51.0(H) 36.0 - 50.0 fL 05/02/2019 12:55 PM [facility] RDW-CV 14.7 11.2 - 14.8 % 05/02/2019 12:55 PM [facility] MPV 9.9 9.3 - 12.8 fL 05/02/2019 12:55 PM [facility] nRBC Absolute 0.00 0 10? 3 /uL 05/02/2019 12:55 PM [facility] nRBC Auto 0.0 0 /100 WBC 05/02/2019 12:55 PM [facility] Neutrophils % 71.6(H) 35.0 - 70.0 % 05/02/2019 12:55 PM [facility] Lymphocytes % 10.4(L) 19.7 - 55.1 % 05/02/2019 12:55 PM [facility] Monocytes % 12.5 3.0 - 15.0 % 05/02/2019 12:55 PM [facility] Eosinophils % 3.7 0.0 - 6.0 % 05/02/2019 12:55 PM [facility] Basophil % 0.7 0.0 - 1.5 % 05/02/2019 12:55 PM [facility] Neutrophils Absolute 6.3 1.6 - 7.0 10? 3 /uL 05/02/2019 12:55 PM [facility] Lymphocyte Absolute 0.9 0.8 - 2.9 10? 3 /uL 05/02/2019 12:55 PM [facility] Monocytes Absolute 1.11(H) 0.14 - 0.66 10? 3 /uL 05/02/2019 12:55 PM [facility] Eosinophils Absolute 0.33 0.00 - 0.45 10? 3 /uL 05/02/2019 12:55 PM [facility] Basophils Absolute 0.06 0.00 - 0.06 10? 3 /uL 05/02/2019 12:55 PM [facility] Immature Granulocytes % 1.1(H) 0.0 - 1.0 % 05/02/2019 12:55 PM [facility] Blood BLOOD SPECIMEN / Unknown Lab Venipuncture / Unknown 05/02/2019 12:43 PM CDT 05/02/2019 12:49 PM CDT Paramjit Escobar MD LAB - HEMATOLOGY ORD ERABLES [facility] [address] [phone] * [place] PM DEVICE PROGR EVAL SNGL (04/03/2019 7:45 AM CDT) Narrative Paramjit Escobar MD - 04/03/2019 7:45 AM CDT Paramjit Escobar MD ? 04/03/2019 ??7:45 AM Device interrogation discussed in progress note. ??Full interrogation scanned into record Paramjit Escobar MD PROCEDURE/MINOR SURG ICAL ORDERABLES * [place] PM DEVICE INTERROGATE REMOTE, [place] PM/ICD REMOTE TECH SERV (01/08/2019 5:40 PM RESEARCH AND DEVELOPMENT DIRECTOR) Narrative Marina Elliott APRN-CREDIT UNION EXAMINER - 01/08/2019 5:40 PM RESEARCH AND DEVELOPMENT DIRECTOR Marina Elliott APRN-CREDIT UNION EXAMINER ? 01/08/2019 ??5:40 PM [facility] transmission 12/17/18 reveals no tachyarrhythmias. V paced 100%. Battery voltage, lead impedance, pacing all WNL. No intrinsic R to measure(see printout in media) Marina Elliott APRN-MIGUEL PROCEDURE/M INOR SURGICAL ORDERABLES * PT INR (EXTERNAL RESULT ENTRY) (08/19/2018) Only the most recent of2 resultswithin the time period is included. PT (EXTERNAL) 28.4 sec INR (EXTERNAL RESULT) 2.8 Blood BLOOD SPECIMEN / Unknown 08/19/2018 Paramjit Escobar MD LAB - CHEMISTRY [facility] * [facility] PM DEVICE INTERROGATE REMOTE, VA PM/ICD REMOTE TECH SERV (06/21/2018 9:13 PM CDT) Narrative Marina Elliott APRN-CREDIT UNION EXAMINER - 06/21/2018 9:13 PM CDT Marina Elliott APRN-CREDIT UNION EXAMINER ? 06/21/2018 ??9:13 PM Carelink transmission reveals no tachyarrhythmias. V paced 99.9%. Battery voltage, lead impedance, pacing all WNL. No intrinsic R to measure(see printout) Marina Elliott APRN-CREDIT UNION EXAMINER PROCEDURE/M INOR SURGICAL ORDERABLES * PATHOLOGY/CYTOLOGY REPORT ORDER (06/10/2018) Only the most recent of4 resultswithin the time period is included. Scanned Document LAB - PATHOLOGY/CYTO LOGY ORDERABLES * PROC PACEMAKER DEVICE CHECK (REMOTE) (12/04/2017 6:22 PM RESEARCH AND DEVELOPMENT DIRECTOR) Narrative [facility] - 12/04/2017 6:22 PM RESEARCH AND DEVELOPMENT DIRECTOR Carelink transmission reveals no tachyarrhythmias. V paced 99.8%. Battery voltage, lead impedance, pacing threshold WNL. No intrinsic R to measure(see printout) Procedure Note Dwayne Godwin MD - 05/03/2018 Carelink transmission reveals no tachyarrhythmias. V paced 99.8%. Battery voltage, lead impedance, pacing threshold WNL. No intrinsic R tomeasure(see printout) Marina ALEXANDER PROCEDURE/M INOR SURGICAL ORDERABLES Performing Organization Address [facility] Co de Phone Number [facility] * PROC IMPLANT WEAR CARDIAC DEVICE EVAL (08/24/2017 11:51 AM CDT) Narrative [facility] - 08/24/2017 11:51 AM CDT Pacemaker interrogation discussed in progress note from today. ??Full interrogation scanned into media Procedure Note Dwayne Godwin MD - 05/03/2018 Pacemaker interrogation discussed in progress note from today. Fullinterrogation scanned into media Paramjit Escobar MD PROCEDURE/MINOR SURG ICAL ORDERABLES Performing Organization Address [facility] Co de Phone Number [facility] * PROC PACEMAKER DEVICE CHECK (REMOTE) (08/15/2017 3:56 PM CDT) Narrative [facility] - 08/15/2017 3:56 PM CDT Carelink transmission reveals no tachyarrhythmia. V paced 99.6%. Battery voltage, lead impedance, pacing threshold all WNL. No intrinsic R noted(see printout) Procedure Note Dwayne Godwin MD - 05/03/2018 Carelink transmission reveals no tachyarrhythmia. V paced 99.6%. Battery voltage, lead impedance, pacing threshold all WNL. No intrinsic Rnoted(see printout) Marina S Earl MANAGER QUANTITATIVE-CREDIT UNION EXAMINER PROCEDURE/M INOR SURGICAL ORDERABLES Performing Organization Address [facility] de Phone Number [facility] * CULTURE URINE (05/23/2017 10:28 AM CDT) Only the most recent of6 resultswithin the time period is included. Urine Culture Routine SEE NOTE [facility] ([facility]) Comment: ??CULTURE, URINE, ROUTINE ?MICRO NUMBER: ?[id number] ??TEST STATUS: ? FINAL ??SPECIMEN SOURCE: ?? URINE ??SPECIMEN QUALITY: ??ADEQUATE ??RESULT: ?Multiple organisms present, each less than 10,000 ? CFU/mL. These organisms, commonly found on ? external and internal genitalia, are considered ? to be colonizers. No further testing performed. REPORT COMMENT: SPECIMEN TYPE->URINE Test Performed at: [facility] ??[id number] MARTINA GARRETT MD 05/23/2017 10:2 8 AM CDT 05/24/2017 2:02 AM CDT Nicole Quiles MD LAB - MICROBIOLOGY O RDERABLES Performing Organization Address [facility] Co de Phone Number [facility] ([facility]) * URINALYSIS COMPLETE W MICROSCOPIC (PO REF) (02/13/2017 10:43 AM CDT) Only the most recent of3 resultswithin the time period is included. Color UA YELLOW YELLOW [facility] Appearance CLEAR CLEAR [facility] Specific [place] UA 1.016 1.001 - 1.035 [facility] pH UA 5.5 5.0 - 8.0 [facility] Glucose UA NEGATIVE NEGATIVE [facility] Bilirubin UA NEGATIVE NEGATIVE [facility] Ketone UA NEGATIVE NEGATIVE [facility] Blood UA NEGATIVE NEGATIVE [facility] Protein UA NEGATIVE NEGATIVE [facility] Nitrite UA NEGATIVE NEGATIVE [facility] Leukocyte UA NEGATIVE NEGATIVE [facility] WBC UA NONE SEEN < OR = 5 /HPF [facility] RBC UA NONE SEEN < OR = 2 /HPF [facility] Epithelial Cell UA 0-5 < OR = 5 /HPF [facility] Bacteria UA NONE SEEN NONE SEEN /HPF [facility] Hyaline Casts NONE SEEN NONE SEEN /LPF [facility] Comment: REPORT COMMENT: FASTING:NO Test Performed at: [facility] [place] [address] [place], [place] ??[phone] HERMELINDO ROJAS DO,MPH Urine URINE SPECIMEN OBTAINED BY CLEAN CATCH PROCEDURE / Unknown 02/13/2017 10:43 AM CDT 02/13/2017 10:44 AM CDT Bebo Hansen MD LAB - URINALYSIS ORD ERABLES [address] [address] [place] [address] * (ABNORMAL) URINALYSIS MICROSCOPIC ONLY REFLEXED (PO REF LAB) (02/09/2017 1:15 PM CDT) WBC UA 0-5 0 - 5 /hpf [facility] INSURANCE BILL RBC UA 3-10(A) 0 - 2 /hpf [facility] INSURANCE BILL Epithelial Cells (non renal) 0-10 0 - 10 /hpf [facility] INSURANCE BILL Epithelial Cells (renal) NOT NEEDED [facility] INSURANCE BILL Comment:Ancillary determined the test is not needed Casts ua NOT NEEDED [facility] INSURANCE BILL Comment:Ancillary determined the test is not needed Casts UA NOT NEEDED [facility] INSURANCE BILL Comment:Ancillary determined the test is not needed Crystals UA NOT NEEDED [facility] INSURANCE BILL Comment:Ancillary determined the test is not needed Crystals UA NOT NEEDED [facility] INSURANCE BILL Comment:Ancillary determined the test is not needed Mucus UA Present Not Estab. [facility] INSURANCE BILL Bacteria UA Many(A) None seen/Few [facility] INSURANCE BILL Yeast UA Present(A) None seen [facility] INSURANCE BILL Trichomonas UA NOT NEEDED [facility] INSURANCE BILL Comment:Ancillary determined the test is not needed Comment Urine NOT NEEDED [facility] INSURANCE BILL Comment:Ancillary determined the test is not needed 02/09/2017 1:15 PM CDT 02/09/2017 Narrative Resulting Agency Comment [facility] [address] ??Replaced by [facility] [phone] Bebo Hansen MD LAB - URINALYSIS ORD ERABLES [facility] INSURANCE BILL [address] [place] [address] * (ABNORMAL) URINALYSIS ROUTINE W/REFLEX TO CULTURE (02/09/2017 1:15 PM CDT) Only the most recent of5 resultswithin the time period is included. Specific [place] UA 1.023 1.005 - 1.030 [facility] INSURANCE BILL pH UA 5.5 5.0 - 7.5 [facility] INSURANCE BILL Color UA Red(A) Yellow [facility] INSURANCE BILL Appearance Cloudy(A) Clear [facility] INSURANCE BILL Leukocyte UA 1+(A) Negative [facility] INSURANCE BILL Protein UA 1+(A) Negative/Tr сергей [facility] INSURANCE BILL Glucose UA Negative Negative [facility] INSURANCE BILL Ketone UA Negative Negative [facility] INSURANCE BILL Occult Blood Urine Trace(A) Negative [facility] INSURANCE BILL Bilirubin UA Negative Negative [facility] INSURANCE BILL Urobilinogen 0.2 0.2 - 1.0 mg/dL [facility] INSURANCE BILL Nitrite UA Positive(A) Negative [facility] INSURANCE BILL Microscopic Examination Urine See below: [facility] INSURANCE BILL Comment:Microscopic was juancarlos cated and was performed. Microscopic Examination Urine NOT NEEDED [facility] INSURANCE BILL Comment:Ancillary determined the test is not needed Urinalysis Reflex [facility] INSURANCE BILL Comment:This specimen has re flexed to a Urine Culture. Urine URINE SPECIMEN OBTAINED BY CLEAN CATCH PROCEDURE / Unknown 02/09/2017 1:15 PM CDT 02/09/2017 Narrative Resulting Agency Comment [facility] [address] [place] [address] ??Replaced by [facility] [phone] Bebo Hansen MD LAB - URINALYSIS ORD ERABLES Performing Organization Address City/[facility]/ZIP Co de Phone Number [facility] INSURANCE BILL [address] [place] [address] * FECAL LEUKOCYTES (02/09/2017 1:13 PM CDT) White Blood Cells (WBC), Stool Final report None Seen [facility] INSURANCE BILL Result 1 [facility] INSURANCE BILL Comment:No white blood cells seen. Stool STOOL SPECIMEN / Unknown 02/09/2017 1:13 PM CDT 02/09/2017 Narrative Resulting Agency Comment [facility] [address] ??Replaced by [facility] [phone] Bebo Hansen MD LAB - BODY FLUID ORD ERABLES Performing Organization Address [facility] Co de Phone Number [facility] INSURANCE BILL [address] [place] [address] * O+P PANEL (02/09/2017 1:13 PM CDT) O+P Exam Final report [facility] INSURANCE BILL Comment: These results were obtained using wet preparation(s) and trichrome stained smear. This test does not include testing for Cryptosporidium parvum, Cyclospora, or Microsporidia. Result 1 [facility] INSURANCE BILL Comment:No ova, cysts, or pa rasites seen. Stool STOOL SPECIMEN / Unknown 02/09/2017 1:13 PM CDT 02/09/2017 Narrative Resulting Agency Comment [facility] [address] ??Replaced by [facility] [phone] Bebo Hansen MD LAB - MICROBIOLOGY O RDERACLAIR Performing Organization Address [facility] de Phone Number [facility] INSURANCE BILL [address] [place] [address] * CULTURE STOOL PANEL (02/09/2017 1:13 PM CDT) Salmonella/Shigel la Screen Final report [facility] INSURANCE BILL Result 1 [facility] INSURANCE BILL Comment:No Salmonella or Shahnaz gella recovered. Campylobacter Culture Final report [facility] INSURANCE BILL Result 1 [facility] INSURANCE BILL Comment:No Campylobacter spe cies isolated. E coli Shiga Toxin EIA Negative Negative [facility] INSURANCE BILL Stool STOOL SPECIMEN / Unknown 02/09/2017 1:13 PM CDT 02/09/2017 Narrative Resulting Agency Comment [facility] [address] ??Replaced by [facility] [phone] Bebo Hansen MD LAB - MICROBIOLOGY O RDERABLES [facility] INSURANCE BILL [address] [place] [address] * CLOSTRIDIUM DIFFICILE TOXIN A+B (02/09/2017 1:11 PM CDT) C difficile Toxin A + B Negative Negative [facility] INSURANCE BILL 02/09/2017 1:11 PM CDT 02/09/2017 Narrative Resulting Agency Comment [facility] [address] ??Replaced by [facility] [phone] Bebo Hansen MD LAB - MICROBIOLOGY O RDERABLES Performing Organization Address City/[facility] Co de Phone Number [facility] INSURANCE BILL [address] [place] [address] * (ABNORMAL) SLIDE SCAN HEMATOLOGY (02/02/2017 12:13 PM RESEARCH AND DEVELOPMENT DIRECTOR) Anisocytosis 2+(A) None 02/02/2017 1:10 PM RESEARCH AND DEVELOPMENT DIRECTOR [facility] Poikilocytosis 2+(A) None 02/02/2017 1:10 PM RESEARCH AND DEVELOPMENT DIRECTOR [facility] Polychromasia Occasiona l(A) None 02/02/2017 1:10 PM RESEARCH AND DEVELOPMENT DIRECTOR [facility] Elliptocytes Occasiona l(A) None 02/02/2017 1:10 PM RESEARCH AND DEVELOPMENT DIRECTOR [facility] Tear Drop Cells 1+(A) None 7 1:10 PM RESEARCH AND DEVELOPMENT DIRECTOR [facility] Blood BLOOD SPECIMEN / Unknown Lab Venipuncture / Unknown 02/02/2017 12:13 PM RESEARCH AND DEVELOPMENT DIRECTOR 02/02/2017 12:14 PM RESEARCH AND DEVELOPMENT DIRECTOR Bebo Hansen MD LAB - HEMATOLOGY ORD ERABLES [facility] [address] [place] [address] * (ABNORMAL) GLUCOSE ACCUCHECK (01/27/2017 11:22 AM RESEARCH AND DEVELOPMENT DIRECTOR) Only the most recent of28 resultswithin the time period is included. Glucose, Fingerstick 154(H) 70-115mg/d L mg/dL [facility] (BEAKER) Comment:Director Stars: PRADO DE BRA 01/27/2017 11:2 2 AM RESEARCH AND DEVELOPMENT DIRECTOR Telma Jansen MD LAB - CHEMISTRY KATIA SHER Performing Organization Address City/[facility]/ZIP Co de Phone Number [facility] ([facility]) * (ABNORMAL) PTT SLU (01/27/2017 6:44 AM RESEARCH AND DEVELOPMENT DIRECTOR) Only the most recent of7 resultswithin the time period is included. [facility] APTT 44.1(H) 23.0 - 38.4 Seconds [facility] Comment:Suggested therapeuti c range for full dose I.V. heparin therapy for venous thromboembolism is 66.0-91.0 seconds. Blood specimen (specimen) BLOOD SPECIMEN / Unknown 01/27/2017 6:44 AM RESEARCH AND DEVELOPMENT DIRECTOR 01/27/2017 6:59 AM RESEARCH AND DEVELOPMENT DIRECTOR Narrative [facility] - 01/27/2017 7:19 AM RESEARCH AND DEVELOPMENT DIRECTOR Please ensure that the aPTT specimen is received in the clinical lab within 1 hour of collection if it is used for therapeutic heparin monitoring. Processing of heparinized specimens older than 1 hour may result in inaccurate test results. Is patient on Heparin, Argatroban or Dabigatran?->Y Telma Jansen MD LAB - COAGULATION OR DERABLES Performing Organization Address [facility] Co de Phone Number [address] [phone] * ADRIANA BLOOD SCREEN (01/27/2017 6:43 AM RESEARCH AND DEVELOPMENT DIRECTOR) [facility] ADRIANA None Detected None Detected [facility] Venous blood specimen (specimen) 01/27/2017 6:43 AM RESEARCH AND DEVELOPMENT DIRECTOR 01/27/2017 7:00 AM RESEARCH AND DEVELOPMENT DIRECTOR Telma Jansen MD LAB - CHEMISTRY KATIA SHER Performing Organization Address [facility] Co de Phone Number [address] [phone] * HIV-1 HIV-2 ANTIGEN/ANTIBODY (01/27/2017 6:43 AM RESEARCH AND DEVELOPMENT DIRECTOR) HIV Antigen/Antibod y 1 & 2 Non-reacti ve Non-react lennox [facility] Comment: Neither HIV-1 p24 Antigen nor HIV-1/HIV-2 Antibodies are detected. ? Blood specimen (specimen) BLOOD SPECIMEN / Unknown 01/27/2017 6:43 AM RESEARCH AND DEVELOPMENT DIRECTOR 01/27/2017 7:00 AM RESEARCH AND DEVELOPMENT DIRECTOR Telma Jansen MD LAB - HEMATOLOGY ORD ERABLES [facility] [address] [place] [address] * (ABNORMAL) PROTEIN ELECTROPHORESIS WO INTERP BLOOD (01/27/2017 6:43 AM RESEARCH AND DEVELOPMENT DIRECTOR) Interpretation Serum PE Normal Pattern Normal Pattern [facility] Comment: Serum protein electrophoresis shows characteristic bands corresponding to albumin, alpha and beta globulins and polyclonal immunoglobulins. No monoclonal immunoglobulins detected. ??Non-secretory myeloma (NSM) and light chain only myeloma cannot be excluded on the basis of this result. ??Recommend serum free light chain measurements for complete evaluation of multiple myeloma. ??Measurement of serum free kappa and lambda immunoglobulin light chains can identify all patients with light chain only myeloma and up to 70% of patients with NSM. Alyssa Colbert, PhD *The electrophoresis pattern and the interpretation have been reviewed and verified by the teaching physician. Protein Total 5.3(L) 6.0 - 8.3 g/dL [facility] Albumin 3.2(L) 3.3 - 5.6 g/dL [facility] Alpha-1 Globulins 0.3 0.1 - 0.3 g/dL [facility] Alpha-2 Globulins 0.6 0.5 - 1.0 g/dL [facility] Beta Globulins 0.7 0.6 - 1.1 g/dL [facility] Gamma Globulins 0.6 0.6 - 1.6 g/dL [facility] Blood specimen (specimen) BLOOD SPECIMEN / Unknown 01/27/2017 6:43 AM RESEARCH AND DEVELOPMENT DIRECTOR 01/27/2017 7:00 AM RESEARCH AND DEVELOPMENT DIRECTOR Telma Jansen MD LAB - CHEMISTRY [facility] SHER [address] [phone] * SEROTONIN RELEASE ASSAY PANEL (01/27/2017 6:43 AM RESEARCH AND DEVELOPMENT DIRECTOR) Pathologist [facility] DARIN Low Dose Heparin 5 0 - 20 % [facility] ([facility]) DARIN High Dose Heparin 2 0 - 20 % [facility] ([facility]) Interpretation DARIN Comment S [facility] ([facility]) Comment: DARIN Result: ??NEGATIVE COMMENT: ??While these results argue against a diagnosis of heparin- induced-thrombocytopenia (HIT), they do not completely exclude the diagnosis. ??The result should be interpreted in conjunction with other HIT assays, and the context of all the clinical information including the platelet count, the type of heparin administered, the duration of heparin exposure, previous heparin exposure and any thrombotic history. ??The assay measures serotonin release from donor platelets in the presence of patient's serum and heparin. ??A positive result requires greater than or equal to 20% release in the presence of low dose (0.2 IU/mL) heparin and inhibition of serotonin release in the presence of high dose (100 IU/mL) heparin. This test was developed and its performance characteristics determined by [employer]. It has not been cleared or approved by the Food and Drug Administration. 01/27/2017 6:43 AM RESEARCH AND DEVELOPMENT DIRECTOR 01/27/2017 6:59 AM RESEARCH AND DEVELOPMENT DIRECTOR Narrative [facility] ([facility]) - 01/30/2017 8:21 AM RESEARCH AND DEVELOPMENT DIRECTOR Performed at: ??01 - [address] ??[id number] Calender Operator Helper: Hermelindo Rojo MD, Phone: ??[phone] Telma Jansen MD LAB - CHEMISTRY [facility] * (ABNORMAL) TRANSFERRIN (01/27/2017 6:43 AM RESEARCH AND DEVELOPMENT DIRECTOR) [facility] Transferrin 199 174 - 382 mg/dL [facility] Transferrin Saturation % 15(L) 16 - 50 % [facility] Blood specimen (specimen) BLOOD SPECIMEN / Unknown 01/27/2017 6:43 AM RESEARCH AND DEVELOPMENT DIRECTOR 01/27/2017 7:00 AM RESEARCH AND DEVELOPMENT DIRECTOR Telma Jansen MD LAB - CHEMISTRY KATIA SHER Performing Organization Address [facility] de Phone Number [address] [phone] * DNA ANTIBODY DOUBLE STRANDED (01/27/2017 6:43 AM RESEARCH AND DEVELOPMENT DIRECTOR) dsDNA Antibody 1 0 - 29 IU/mL [facility] Comment: dsDNA Antibody Numeric Result Interpretation: ? 0 - 29 IU/mL: ??Negative ?30 - 75 IU/mL: ??Borderline ?>75 IU/mL: ??Positive ? Blood specimen (specimen) BLOOD SPECIMEN / Unknown 01/27/2017 6:43 AM RESEARCH AND DEVELOPMENT DIRECTOR 01/27/2017 7:00 AM RESEARCH AND DEVELOPMENT DIRECTOR Telam Jansen MD LAB - HEMATOLOGY DAYDAY MAY Performing Organization Address [facility] Co de Phone Number [address] [phone] * (ABNORMAL) IRON BLOOD (01/27/2017 6:43 AM RESEARCH AND DEVELOPMENT DIRECTOR) Pathologist [facility] Iron 37(L) 40 - 150 mcg/dL [facility] Blood specimen (specimen) BLOOD SPECIMEN / Unknown 01/27/2017 6:43 AM RESEARCH AND DEVELOPMENT DIRECTOR 01/27/2017 7:00 AM RESEARCH AND DEVELOPMENT DIRECTOR Telma Jansen MD LAB - CHEMISTRY KATIA SHER Performing Organization Address [facility] Co de Phone Number [address] [phone] * HEPATITIS B SURFACE ANTIGEN W RFLX CONFIRMATION (01/27/2017 6:43 AM RESEARCH AND DEVELOPMENT DIRECTOR) Hepatitis B Virus Surface Antigen Non-reacti ve Non-reacti ve [facility] Blood specimen (specimen) BLOOD SPECIMEN / Unknown 01/27/2017 6:43 AM RESEARCH AND DEVELOPMENT DIRECTOR 01/27/2017 7:00 AM RESEARCH AND DEVELOPMENT DIRECTOR Telma Jansen MD LAB - CHEMISTRY KATIA SHER Performing Organization Address [facility] Co de Phone Number [address] [phone] * HEPATITIS C ANTIBODY (01/27/2017 6:43 AM RESEARCH AND DEVELOPMENT DIRECTOR) Pathologist [facility] Hepatitis C Antibody Non-react lennox Non-reac tive [facility] Comment: Hepatitis C Antibody screen indicates no serologic evidence of past or current infection with Hepatitis C Virus. Patients with unexplained liver disease who are immunocompromised or suspected of having acute Hepatitis C infection may benefit from Nucleic Acid Test (AFTAB) for Hepatitis C Viral RNA to confirm Hepatitis C status. Blood specimen (specimen) BLOOD SPECIMEN / Unknown 01/27/2017 6:43 AM RESEARCH AND DEVELOPMENT DIRECTOR 01/27/2017 7:00 AM RESEARCH AND DEVELOPMENT DIRECTOR Telma Jansen MD LAB - CHEMISTRY KATIA SHER Performing Organization Address [facility] de Phone Number [address] [phone] * GLOMERULAR BASE MEMBRANE ANTIBODY IGG (01/27/2017 6:43 AM RESEARCH AND DEVELOPMENT DIRECTOR) Pathologist [facility] Antiglomerular BM Antibody 3 0 - 20 units [facility] (BEAKER) Comment: ? Negative ? 0 - 20 ? Weak Positive ? 21 - 30 ? Moderate to Strong Positive ?? >30 Blood specimen (specimen) BLOOD SPECIMEN / Unknown 01/27/2017 6:43 AM RESEARCH AND DEVELOPMENT DIRECTOR 01/27/2017 6:59 AM RESEARCH AND DEVELOPMENT DIRECTOR Narrative [facility] (BEAKER) - 01/29/2017 5:09 PM RESEARCH AND DEVELOPMENT DIRECTOR Performed at: ??01 - [facility] [address] ??[id number] Calender Operator Helper: Hermelindo Rojo MD, Phone: ??[phone] Telma Jansen MD LAB - CHEMISTRY KATIA SHER Performing Organization Address [facility]/ZIP Co de Phone Number [facility] (BEAKER) * (ABNORMAL) KAPPA/LAMBDA LITE CHAIN FREE PANEL (01/27/2017 6:43 AM RESEARCH AND DEVELOPMENT DIRECTOR) Free [place] Light Chains Quantitative 58.33(H) 3.30 - 19.40 mg/L [facility] (BEAKER) Free Lambda Light Chains Quantitative 35.33(H) 5.71 - 26.30 mg/L [facility] (BEAKER) [place]/Lambda Ratio 1.65 0.26 - 1.65 [facility] (BEAKER) Blood specimen (specimen) BLOOD SPECIMEN / Unknown 01/27/2017 6:43 AM RESEARCH AND DEVELOPMENT DIRECTOR 01/27/2017 6:59 AM RESEARCH AND DEVELOPMENT DIRECTOR Narrative [facility] (BEAKER) - 01/29/2017 5:09 PM RESEARCH AND DEVELOPMENT DIRECTOR Performed at: ??01 - [address] ??[id number] Calender Operator Helper: Eagle Nguyen PhD, Phone: ??[phone] Telma Jansen MD LAB - CHEMISTRY KATIA SHER [facility] (BEAKER) * HELICOBACTER PYLORI ANTIBODY IGG (01/27/2017 6:43 AM RESEARCH AND DEVELOPMENT DIRECTOR) Helicobacter pylori Antibody IgG <0.9 0.0 - 0.8 U/mL [facility] (BEAKER) Comment: ? Negative ?<0.9 ? Indeterminate ??0.9 - 1.0 ? Positive ?>1.0 Blood specimen (specimen) BLOOD SPECIMEN / Unknown 01/27/2017 6:43 AM RESEARCH AND DEVELOPMENT DIRECTOR 01/27/2017 10:10 AM RESEARCH AND DEVELOPMENT DIRECTOR Narrative [facility] ([facility]) - 01/30/2017 3:13 PM RESEARCH AND DEVELOPMENT DIRECTOR Performed at: ??01 - [facility] [address] ??[id number] Calender Operator Helper: Eagle Nguyen PhD, Phone: ??[phone] Telma Jansen MD LAB - CHEMISTRY KATIA SHER Performing Organization Address [facility] Co de Phone Number [facility] ([place]) * ENTAMOEBA HISTOLYTICA ANTIBODY (01/26/2017 8:31 PM RESEARCH AND DEVELOPMENT DIRECTOR) Pathologist [facility] Amebiasis Antibody Negative Negative [facility] ([place]) Blood specimen (specimen) BLOOD SPECIMEN / Unknown 01/26/2017 8:31 PM RESEARCH AND DEVELOPMENT DIRECTOR 01/26/2017 8:47 PM RESEARCH AND DEVELOPMENT DIRECTOR Narrative [facility] ([place]) - 01/30/2017 1:10 PM RESEARCH AND DEVELOPMENT DIRECTOR Performed at: ??01 - [facility] [address] ??[id number] Calender Operator Helper: Hermelindo Rojo MD, Phone: ??[phone] Telma Jansen MD LAB - CHEMISTRY KATIA SHER Performing Organization Address [facility] Co de Phone Number [facility] ([place]) * GIARDIA SCREEN DFA (01/26/2017 1:15 PM RESEARCH AND DEVELOPMENT DIRECTOR) Giardia Antigen Screen No Giardia Lamblia Cysts seen. Negative [facility] Stool specimen (specimen) STOOL SPECIMEN / Unknown 01/26/2017 1:15 PM RESEARCH AND DEVELOPMENT DIRECTOR 01/26/2017 1:22 PM RESEARCH AND DEVELOPMENT DIRECTOR Narrative [facility] - 01/29/2017 1:05 PM RESEARCH AND DEVELOPMENT DIRECTOR Specimen Type->Stool Telma Jansen MD LAB - MICROBIOLOGY O FELICITY Performing Organization Address City/[facility] Co de Phone Number [address] [phone] * CULTURE STOOL+ E COLI SHIGA-LIKE TOXIN (01/26/2017 1:15 PM RESEARCH AND DEVELOPMENT DIRECTOR) Culture Feces No Salmonella, Shigella, Yersinia, Campylobacter or Escherichia Coli 0157:H7 isolated. Negative for Shiga Toxin by Immunoassay. [facility] Stool specimen (specimen) STOOL SPECIMEN / Unknown 01/26/2017 1:15 PM RESEARCH AND DEVELOPMENT DIRECTOR 01/26/2017 1:22 PM RESEARCH AND DEVELOPMENT DIRECTOR Narrative [facility] - 01/29/2017 10:39 AM RESEARCH AND DEVELOPMENT DIRECTOR Specimen Type->Stool Telma Jansen MD LAB - MICROBIOLOGY O FELICITY Performing Organization Address [facility] de Phone Number [address] [phone] * CLOSTRIDIUM DIFFICILE [facility] + TOXIN A+B (01/26/2017 1:15 PM RESEARCH AND DEVELOPMENT DIRECTOR) C difficile Antigen Negative Negative [facility] C difficile Toxin Negative Negative [facility] Stool specimen (specimen) STOOL SPECIMEN / Unknown 01/26/2017 1:15 PM RESEARCH AND DEVELOPMENT DIRECTOR 01/26/2017 1:22 PM RESEARCH AND DEVELOPMENT DIRECTOR Narrative [facility] - 01/26/2017 10:41 PM RESEARCH AND DEVELOPMENT DIRECTOR Specimen Type->Stool Telma Jansen MD LAB - MICROBIOLOGY O FELICITY Performing Organization Address City/[facility] Co de Phone Number [address] [phone] * PROTEIN ELECTROPHORESIS URINE RANDOM (01/26/2017 10:38 AM RESEARCH AND DEVELOPMENT DIRECTOR) Interpretation Urine PE See Comment Normal Pattern [facility] Comment: Urine protein electrophoresis shows a prominent band corresponding to albumin with small amounts of other nonspecific proteinuria. No monoclonal immunoglobulins detected. ??Non-secretory myeloma (NSM) cannot be excluded on the basis of this result. Measurements of serum free kappa and lambda immunoglobulin light chains can identify up to 70% of patients with NSM. Alyssa Colbert, PhD Protein Urine 26 Not Established mg/dL [facility] Urine specimen (specimen) URINE SPECIMEN OBTAINED BY CLEAN CATCH PROCEDURE / Unknown 01/26/2017 10:38 AM RESEARCH AND DEVELOPMENT DIRECTOR 01/26/2017 10:38 AM RESEARCH AND DEVELOPMENT DIRECTOR Telma Jansen MD LAB - URINE CHEMISTR Y ORDERABLES Performing Organization Address City/[facility]/ZIP Co de Phone Number [address] [phone] * EOSINOPHIL URINE SMEAR (01/26/2017 10:35 AM RESEARCH AND DEVELOPMENT DIRECTOR) Only the most recent of2 resultswithin the time period is included. Eosin Stain Urine None None [facility] Urine specimen (specimen) 01/26/2017 10:35 AM RESEARCH AND DEVELOPMENT DIRECTOR 01/26/2017 10:35 AM RESEARCH AND DEVELOPMENT DIRECTOR Telma Jansen MD LAB - URINE CHEMISTR Y ORDERABLES Performing Organization Address City/[facility]/ZIP Co de Phone Number [address] [phone] * (ABNORMAL) HEMOGLOBIN A1C (01/26/2017 6:22 AM RESEARCH AND DEVELOPMENT DIRECTOR) Only the most recent of2 resultswithin the time period is included. Hemoglobin A1c 6.4(H) 4.4 - 6.3 % [facility] Estimated Average Glucose 137 mg/dL [facility] Comment: HbA1c Interpretation: Treatment target values recommended by ADA and other clinical organizations should be used to evaluate metabolic control in patients. Treatment Target Values: Normal : < 5.7% Pre-diabetes: 5.7-6.4% Diabetes: Equal to or greater than 6.5% Reference: [place] [employer] Standards of Care in Diabetes -2014 In patients 70 years and older consider HbA1c target range of 7.0-7.5% Reference: ??Diabetes Mellitus in Older People: Position Statement on behalf of the International Association of Gerontology and Geriatrics (IAGG), the Diabetes Working Libertarian for Older People (EDWPOP), and the International Task Force of Experts in Diabetes. ??Juan Welsh, et al. J [place] [employer]. 2012 Test results diagnostic [...] BLOOD SPECIMEN / Unknown 01/26/2017 6:22 AM RESEARCH AND DEVELOPMENT DIRECTOR 01/26/2017 6:25 AM RESEARCH AND DEVELOPMENT DIRECTOR Telma Jansen MD LAB - CHEMISTRY KATIA SHER Performing Organization Address [facility] Co de Phone Number [address] [phone] * (ABNORMAL) HEPARIN PLATELET INDUCED ANTIBODY (01/26/2017 6:22 AM RESEARCH AND DEVELOPMENT DIRECTOR) Interpretation Heparin Platelet Antibody Positive (A) Negative [facility] Comment: Heparin induced thrombocytopenia (HIT) is unlikely in the presence of a negative HIT antibody test result by AMAURY and low pretest probability for type II HIT (scoring system of [place]). It is suggested to verify positive HIT AMAURY antibody test results by HIT Antibody Serotonin Release Assay. HIT AMAURY Patient OD 0.652(H) <0.400 OD [facility] Blood specimen (specimen) BLOOD SPECIMEN / Unknown 01/26/2017 6:22 AM RESEARCH AND DEVELOPMENT DIRECTOR 01/26/2017 8:05 AM RESEARCH AND DEVELOPMENT DIRECTOR Telma Jansen MD LAB - CHEMISTRY KATIA SHER Performing Organization Address [facility]/ZIP Co de Phone Number [address] [phone] * PROTEIN URINE RANDOM QUANTITATIVE (01/24/2017 9:36 AM RESEARCH AND DEVELOPMENT DIRECTOR) Protein Urine 14 Not Established mg/dL [facility] Urine specimen (specimen) URINE SPECIMEN OBTAINED BY CLEAN CATCH PROCEDURE / Unknown 01/24/2017 9:36 AM RESEARCH AND DEVELOPMENT DIRECTOR 01/24/2017 10:13 AM RESEARCH AND DEVELOPMENT DIRECTOR Telma Jansen MD LAB - URINE CHEMISTR Y ORDERABLES Performing Organization Address [facility] Co de Phone Number [address] [phone] * SODIUM URINE RANDOM (01/24/2017 9:36 AM RESEARCH AND DEVELOPMENT DIRECTOR) Sodium Urine 49 Not Established mmol/L [facility] Urine specimen (specimen) URINE SPECIMEN OBTAINED BY CLEAN CATCH PROCEDURE / Unknown 01/24/2017 9:36 AM RESEARCH AND DEVELOPMENT DIRECTOR 01/24/2017 10:13 AM RESEARCH AND DEVELOPMENT DIRECTOR Telma Jansen MD LAB - URINE CHEMISTR Y ORDERABLES Performing Organization Address [facility] de Phone Number [address] [phone] * UREA NITROGEN URINE RANDOM (01/24/2017 9:36 AM RESEARCH AND DEVELOPMENT DIRECTOR) Urea Nitrogen Random Urine 978 Not Established mg/dL [facility] Urine specimen (specimen) URINE SPECIMEN OBTAINED BY CLEAN CATCH PROCEDURE / Unknown 01/24/2017 9:36 AM RESEARCH AND DEVELOPMENT DIRECTOR 01/24/2017 10:13 AM RESEARCH AND DEVELOPMENT DIRECTOR Telma Jansen MD LAB - URINE CHEMISTR Y ORDERABLES Performing Organization Address [facility] de Phone Number [address] [phone] * CREATININE URINE RANDOM (01/24/2017 9:36 AM RESEARCH AND DEVELOPMENT DIRECTOR) Creatinine Urine 159 Not Established mg/dL [facility] Comment:Result obtained by rufino cruz Urine specimen (specimen) URINE SPECIMEN OBTAINED BY CLEAN CATCH PROCEDURE / Unknown 01/24/2017 9:36 AM RESEARCH AND DEVELOPMENT DIRECTOR 01/24/2017 10:13 AM RESEARCH AND DEVELOPMENT DIRECTOR Telma Jansen MD LAB - URINE CHEMISTR Y ORDERABLES [facility] [address] [place] [address] * US RETROPERITONEAL COMPLETE (01/23/2017 2:47 PM RESEARCH AND DEVELOPMENT DIRECTOR) Anatomical Region Laterality Modality Abdomen Other Impressions 01/23/2017 5:44 PM RESEARCH AND DEVELOPMENT DIRECTOR IMPRESSION: Normal renal size. No evidence of nephrolithiasis, hydronephrosis, or solid renal mass. Dictated by Marquez Callahan MD (interventional radiology rn). This report was approved ??by Ronn Callahan ?? on 01/23/2017 3:[address] Yolanda Britt M.D. have personally reviewed and interpreted this examination/study. This report was electronically signed by Yolanda MCCARTHY M.D. ??on 01/23/2017 5:44 PM . Narrative 01/23/2017 5:44 PM RESEARCH AND DEVELOPMENT DIRECTOR EXAMINATION: Complete retroperitoneal sonogram HISTORY: Acute kidney injury COMPARISON: No prior study is available for comparison. FINDINGS: Right kidney: 11.0 x 4.6 x 4.6 cm Left kidney: 11.1 x 4.0 x 4.0 cm Renal parenchymal echogenicity is normal. There is no evidence of a solid renal mass, renal calculi, or hydronephrosis. Blood flow is seen within the renal arteries and veins. The bladder is partially distended. Procedure Note Laurel Mccarthy MD - 02/22/2018 EXAMINATION: Complete retroperitoneal sonogram HISTORY: Acute kidney injury COMPARISON: No prior study is available for comparison. FINDINGS: Right kidney: 11.0 x 4.6 x 4.6 cm Left kidney: 11.1 x 4.0 x 4.0 cm Renal parenchymal echogenicity is normal. There is no evidence of a solidrenal mass, renal calculi, or hydronephrosis. Blood flow is seen withinthe renal arteries and veins. The bladder is partially distended. IMPRESSION IMPRESSION: Normal renal size. No evidence of nephrolithiasis, hydronephrosis, orsolid renal mass. Dictated by Marquez Callahan MD (interventional radiology rn). This report was approved by Ronn Callahan on 01/23/2017 3:17 PM . I, Dr. Yolanda MCCARTHY M.D. have personally reviewed and interpreted thisexamination/study. This report was electronically signed by Yolanda MCCARTHY M.D. on01/23/2017 5:44 PM . Telma Jansen MD ORDERABLES * HAPTOGLOBIN (01/23/2017 10:19 AM RESEARCH AND DEVELOPMENT DIRECTOR) Only the most recent of2 resultswithin the time period is included. Pathologist [facility] Haptoglobin 181 14 - 258 mg/dL [facility] Blood specimen (specimen) BLOOD SPECIMEN / Unknown 01/23/2017 10:19 AM RESEARCH AND DEVELOPMENT DIRECTOR 01/23/2017 10:24 AM RESEARCH AND DEVELOPMENT DIRECTOR Alexa Garcia APRN-CREDIT UNION EXAMINER LAB - CHEMISTR Y ORDERABLES Performing Organization Address [facility]/ZIP Co de Phone Number [address] [phone] * (ABNORMAL) LDH BLOOD (01/23/2017 10:19 AM RESEARCH AND DEVELOPMENT DIRECTOR) [facility] LDH Total 275(H) 125 - 243 Units/L [facility] Blood specimen (specimen) BLOOD SPECIMEN / Unknown 01/23/2017 10:19 AM RESEARCH AND DEVELOPMENT DIRECTOR 01/23/2017 10:24 AM RESEARCH AND DEVELOPMENT DIRECTOR Alexa Garcia [facility] LAB - CHEMISTR Y ORDERABLES Performing Organization Address [facility] Co de Phone Number [address] [phone] * (ABNORMAL) D-DIMER (01/23/2017 8:46 AM RESEARCH AND DEVELOPMENT DIRECTOR) Pathologist [facility] D-Dimer Quantitative 1.14(H) <=0.50 mcg/mL U [facility] Comment: In the absence of clinical symptoms, a value less than or equal to 0.5 mcg/mL FEU significantly decreases the probability of PE/DVT (negative predictive value >95%). 1 mcg/mL FEU = 1 Fibrinogen Equivalent Unit (approximates 0.5 mcg/ml of D- Dimer). ?ISTH DIAGNOSTIC SCORING SYSTEM FOR DIC ?Score ?0 ? 1 ? 2 ?3 ?? Platelet Count(x10^3/uL) ?> 100 ?? < 100 ?? < 50 ?N/A PT Prolongation above ? upper limit of normal ?0-3 ? 3-6 ? > 6 ?N/A range (seconds) ? Fibrinogen (mg/dL) ?> 100 ?? < 100 ?N/A ?N/A D-Dimer (mcg/mL FEU) ? < 0.50 ?N/A ? 0.50-5.0 ??> 5 Calculate Cumulative Score: > or = 5 :compatible with overt DIC ? < 5 :suggestive for non-overt DIC N/A = Non applicable Reference: Br. J. Haematol. 145:24-33,2009. Blood specimen (specimen) BLOOD SPECIMEN / Unknown 01/23/2017 8:46 AM RESEARCH AND DEVELOPMENT DIRECTOR 01/23/2017 8:57 AM RESEARCH AND DEVELOPMENT DIRECTOR Alexa Garcia APRN-CREDIT UNION EXAMINER LAB - COAGULAT ION ORDERABLES Performing Organization Address [facility] de Phone Number [address] [phone] * (ABNORMAL) FIBRINOGEN ACTIVITY (01/23/2017 8:46 AM RESEARCH AND DEVELOPMENT DIRECTOR) Fibrinogen Clauss 541(H) 200 - 400 mg/dL [facility] Blood specimen (specimen) BLOOD SPECIMEN / Unknown 01/23/2017 8:46 AM RESEARCH AND DEVELOPMENT DIRECTOR 01/23/2017 8:57 AM RESEARCH AND DEVELOPMENT DIRECTOR Alexa Garcia MANAGER QUANTITATIVE-CREDIT UNION EXAMINER LAB - COAGULAT ION ORDERABLES Performing Organization Address [facility]/State/ZIP Co de Phone Number [address] [phone] * (ABNORMAL) C-REACTIVE PROTEIN (01/23/2017 8:46 AM RESEARCH AND DEVELOPMENT DIRECTOR) [facility] C-Reactive Protein 3.9(H) <=0.5 mg/dL [facility] Blood specimen (specimen) BLOOD SPECIMEN / Unknown 01/23/2017 8:46 AM RESEARCH AND DEVELOPMENT DIRECTOR 01/23/2017 8:57 AM RESEARCH AND DEVELOPMENT DIRECTOR Alexa [facility] LAB - CHEMISTR Y ORDERABLES Performing Organization Address [facility]/ZIP Co de Phone Number [address] [phone] * (ABNORMAL) OCCULT BLOOD FECES (01/23/2017 8:37 AM RESEARCH AND DEVELOPMENT DIRECTOR) [facility] Occult Blood Positive(A ) Negative [facility] Comment:This is a corrected result. Previous result was Negative on 01/23/2017 at 1031 RESEARCH AND DEVELOPMENT DIRECTOR Stool specimen (specimen) (Per rectum) 01/23/2017 8:37 AM RESEARCH AND DEVELOPMENT DIRECTOR 01/23/2017 8:37 AM RESEARCH AND DEVELOPMENT DIRECTOR Narrative [facility] - 01/23/2017 10:48 AM RESEARCH AND DEVELOPMENT DIRECTOR Sample was plated too thick causing a false negative. Replating the sample gave a positive result. Alexa ALEXANDER LAB - BODY FLU ID ORDERABLES Performing Organization Address [facility] Co de Phone Number [address] [phone] * (ABNORMAL) RETIC COUNT (01/23/2017 6:14 AM RESEARCH AND DEVELOPMENT DIRECTOR) Only the most recent of4 resultswithin the time period is included. [facility] Reticulocyte % 0.1(L) 0.4 - 2.5 % [facility] Reticulocyte Absolute 0.00(L) 0.02 - 0.13 10? 6 /uL [facility] Blood specimen (specimen) BLOOD SPECIMEN / Unknown 01/23/2017 6:14 AM RESEARCH AND DEVELOPMENT DIRECTOR 01/23/2017 6:20 AM RESEARCH AND DEVELOPMENT DIRECTOR Alexa Garcia MANAGER QUANTITATIVE-CREDIT UNION EXAMINER LAB - HEMATOLO [place] [address], [facility] [phone] * XR CHEST 2VW (01/22/2017 3:47 PM RESEARCH AND DEVELOPMENT DIRECTOR) Only the most recent of7 resultswithin the time period is included. Anatomical Region Laterality Modality Chest Other Impressions 01/23/2017 5:40 PM RESEARCH AND DEVELOPMENT DIRECTOR IMPRESSION: A cardiac pacemaker superimposes the left upper lateral chest wall with intact leads ending in the expected location of the right ventricle. An abandoned cardiac lead projects over the left axillary region. Median sternotomy wires appear intact. 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 Mild pulmonary vascular congestion is seen. Linear opacities in the left lung base likely represent atelectasis. There is no pneumothorax or pleural effusion. The aorta is atherosclerotic. The cardiac silhouette is enlarged. Degenerative changes are noted in the thoracic spine. Diffuse osteopenia is noted. Dictated by Enid Reyna MD (interventional radiology rn). This report was approved ??by Enid Reyna M.D. ?? on 01/23/2017 12:49 PM . I, Dr. SANDEEP SILVEIRA M.D. have personally reviewed and interpreted this examination/study. This report was electronically signed by SANDEEP SILVEIRA M.D. ??on 01/23/2017 5:40 PM . Narrative 01/23/2017 5:40 PM RESEARCH AND DEVELOPMENT DIRECTOR EXAMINATION: XR CHEST PA AND LATERAL HISTORY: cough COMPARISON: Comparison is made with a study from 12/26/2016. FINDINGS/ Procedure Note Paula Sanchez MD - 02/22/2018 EXAMINATION: XR CHEST PA AND LATERAL HISTORY: cough COMPARISON: Comparison is made with a study from 12/26/2016. FINDINGS/ IMPRESSION IMPRESSION: A cardiac pacemaker superimposes the left upper lateral chest wall withintact leads ending in the expected location of the right ventricle. Anabandoned cardiac lead projects over the left axillary region. Mediansternotomy wires appear intact. 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 Mild pulmonary vascular congestion isseen. Linear opacities in the left lung base likely represent atelectasis.There is no pneumothorax or pleural effusion. The aorta isatherosclerotic. The cardiac silhouette is enlarged. Degenerative changes are noted in the thoracic spine. Diffuseosteopenia is noted. Dictated by Enid Reyna MD (interventional radiology rn). This report was approved by Enid Reyna M.D. on 01/23/2017 12:[address] SANDEEP Britt M.D. have personally reviewed and interpreted thisexamination/study. This report was electronically signed by SANDEEP SILVEIRA M.D. on 01/23/20175:40 PM . Alexa Garcia MANAGER QUANTITATIVE-CREDIT UNION EXAMINER DIAGNOSTIC SARAN GING ORDERABLES * XR FOOT RIGHT 3VW OR MORE (01/22/2017 3:45 PM RESEARCH AND DEVELOPMENT DIRECTOR) Anatomical Region Laterality Modality Ankle / Foot Other Impressions 02/04/2017 5:44 AM CDT IMPRESSION: No acute fracture or dislocation identified. No radiographic evidence of osteomyelitis. If there is persistent concern for osteomyelitis or soft tissue infection, MRI of the foot is recommended. Dictated by Leonard Feliz MD (interventional radiology rn). This report was approved ??by Leonard Feliz M.D. ?? on 01/23/2017 9:[address] VINCENT Britt M.D. have personally reviewed and interpreted this examination/study. This report was electronically signed by VINCENT MARTIN M.D. ??on 02/04/2017 5:44 AM . Narrative 02/04/2017 5:44 AM CDT EXAMINATION: Right foot, 3 view HISTORY: treated for infection COMPARISON: No prior study is available for comparison. FINDINGS: The osseous structures are intact and well aligned without acute fracture or dislocation. The joint spaces are preserved. Bone density and texture are normal. Vascular calcifications are seen in the foot. Procedure Note Vincent Martin MD - 02/22/2018 EXAMINATION: Right foot, 3 view HISTORY: treated for infection COMPARISON: No prior study is available for comparison. FINDINGS: The osseous structures are intact and well aligned without acute fractureor dislocation. The joint spaces are preserved. Bone density and textureare normal. Vascular calcifications are seen in the foot. IMPRESSION IMPRESSION: No acute fracture or dislocation identified. No radiographic evidence of osteomyelitis. If there is persistent concernfor osteomyelitis or soft tissue infection, MRI of the foot isrecommended. Dictated by Leonard Feliz MD (interventional radiology rn). This report was approved by Leonard Feliz M.D. on 01/23/2017 9:06 AM. I, Dr. VINCENT MARTIN M.D. have personally reviewed and interpreted thisexamination/study. This report was electronically signed by VINCENT MARTIN M.D. on 02/04/20175:44 AM . Alexa Garcia APRN-CREDIT UNION EXAMINER DIAGNOSTIC SARAN GING ORDERABLES * (ABNORMAL) VITAMIN D 1,25 DIHYDROXY (01/22/2017 2:55 PM RESEARCH AND DEVELOPMENT DIRECTOR) Pathologist [facility] Calcitriol (1,25 di-OH Vit D) 12.5(L) 19.9 - 79.3 pg/mL [facility] ([facility]) Blood specimen (specimen) BLOOD SPECIMEN / Unknown 01/22/2017 2:55 PM RESEARCH AND DEVELOPMENT DIRECTOR 01/22/2017 3:22 PM RESEARCH AND DEVELOPMENT DIRECTOR Narrative [facility] ([place]) - 01/24/2017 1:10 PM RESEARCH AND DEVELOPMENT DIRECTOR Performed at: ??01 - [facility] [address] ??[id number] Calender Operator Helper: Hermelindo Rojo MD, Phone: ??[phone] Alexa [facility] - CHEMISTR Y ORDERABLES [facility] ([place]) * (ABNORMAL) RBC MORPHOLOGY (01/22/2017 2:55 PM RESEARCH AND DEVELOPMENT DIRECTOR) Only the most recent of2 resultswithin the time period is included. Anisocytosis 1+(A) None [facility] Microcytes 1+(A) None [facility] Schistocytes Occasiona l(A) None [facility] Ovalocytes 1+(A) None [facility] Tear Drop Cells 1+(A) None [facility] Blood specimen (specimen) BLOOD SPECIMEN / Unknown 01/22/2017 2:55 PM RESEARCH AND DEVELOPMENT DIRECTOR 01/22/2017 3:19 PM RESEARCH AND DEVELOPMENT DIRECTOR Alexa Garcia MANAGER QUANTITATIVE-CREDIT UNION EXAMINER LAB - HEMATOLO GY ORDERABLES [facility] [address] [place] [address] * (ABNORMAL) COMPREHENSIVE METABOLIC PANEL (01/22/2017 2:55 PM RESEARCH AND DEVELOPMENT DIRECTOR) Only the most recent of11 resultswithin the time period is included. BUN 31(H) 7 - 26 mg/dL [facility] Creatinine 1.5(H) 0.6 - 1.2 mg/dL [facility] Sodium 140 136 - 145 mmol/L [facility] Potassium 3.9 3.5 - 4.5 mmol/L [facility] Chloride 104 98 - 107 mmol/L [facility] CO2 22 22 - 29 mmol/L [facility] Glucose 112 70 - 115 mg/dL [facility] Calcium 10.3(H) 8.4 - 10.2 mg/dL [facility] Protein Total 7.1 6.0 - 8.3 g/dL [facility] Albumin 3.3(L) 3.4 - 5.0 g/dL [facility] Bilirubin Total 0.8 0.2 - 1.2 mg/dL [facility] Alkaline Phosphatase 62 40 - 150 Units/L [facility] ALT 12 0 - 55 Units/L [facility] AST 18 5 - 34 Units/L [facility] Anion Gap 18 8 - 18 [facility] BUN/Creatinine Ratio 21 7 - 23 [facility] Osmolality Calculated 297 270 - 300 mOsm/kg [facility] Albumin/Globulin Ratio 0.9(L) 1.1 - 2.3 [facility] eGFR 34(L) >60 mL/min/1.7 3 m2 [facility] Blood specimen (specimen) BLOOD SPECIMEN / Unknown 01/22/2017 2:55 PM RESEARCH AND DEVELOPMENT DIRECTOR 01/22/2017 3:22 PM RESEARCH AND DEVELOPMENT DIRECTOR Alexa Garcia MANAGER QUANTITATIVE-CREDIT UNION EXAMINER LAB - CHEMISTR Y ORDERABLES [address] [phone] * TSH (01/22/2017 2:55 PM RESEARCH AND DEVELOPMENT DIRECTOR) Only the most recent of5 resultswithin the time period is included. TSH 2.923 0.350 - 4.940 uIU/mL [facility] Blood specimen (specimen) BLOOD SPECIMEN / Unknown 01/22/2017 2:55 PM RESEARCH AND DEVELOPMENT DIRECTOR 01/22/2017 3:22 PM RESEARCH AND DEVELOPMENT DIRECTOR Alexa Garcia MANAGER QUANTITATIVE-CREDIT UNION EXAMINER LAB - CHEMISTR Y ORDERABLES Performing Organization Address City/[facility]/ZIP Co de Phone Number [address] [phone] * ECHO W DOPPLER AND COLOR FLOW (01/22/2017 12:00 AM RESEARCH AND DEVELOPMENT DIRECTOR) Anatomical Region Laterality Modality Other 01/22/2017 Alexa Garcia MANAGER QUANTITATIVE-CREDIT UNION EXAMINER ECHOCARDIOGRAP HY RADIANT * EKG 12-LEAD (01/22/2017 12:00 AM RESEARCH AND DEVELOPMENT DIRECTOR) Only the most recent of6 resultswithin the time period is included. EKG [facility] Comment: Exam Date/Time: ?? Jan 22 2017 14:04:49 Test Reason : weakness Blood Pressure : / mmHG Vent. Rate : 067 BPM ? Atrial Rate : 066 BPM ?? P-R Int : 000 ms ?QRS Dur : 188 ms ?QT Int : 514 ms ? P-R-T Axes : 000 040 135 degrees ?? QTc Int : 543 ms Electronic ventricular pacemaker with Underlying Atrial flutter When compared with ECG of 26-DEC-2016 16:26, No significant change was found Confirmed by Bg Lopez, Keyona ([id number]), society editor HALLIE NARAYANAN ([id number]) on 01/25/2017 12:41:44 PM Referred By: REFERRING NO ? Confirmed By:Keyona Lopez M.D. 01/22/2017 Alexa Garcia MANAGER QUANTITATIVE-CREDIT UNION EXAMINER ECG ORDERABLES [facility] * LAB HISTORICAL RESULTS-ONBASE (01/05/2017) Only the most recent of5 resultswithin the time period is included. 01/05/2017 Historical Provider LAB - CHEMISTRY O RDERABLES Performing Organization Address City/[facility] Co de Phone Number [address] * XR CHEST 1VW PORTABLE (12/26/2016 4:32 PM RESEARCH AND DEVELOPMENT DIRECTOR) Only the most recent of2 resultswithin the time period is included. Anatomical Region Laterality Modality Chest Other Impressions 12/27/2016 3:49 PM RESEARCH AND DEVELOPMENT DIRECTOR IMPRESSION: A pacemaker superimposes the left upper with intact leads. Median sternotomy wires appear intact. 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 Mild pulmonary vascular congestion is seen. Linear opacities in the left lung base likely represent atelectasis. There is no pneumothorax or pleural effusion. The mediastinal silhouette is normal. The cardiac silhouette is enlarged. The visible bony thorax is intact. Dictated by Spencer Nuñez MD (interventional radiology rn). Dr. Yolanda Britt M.D. have personally reviewed and interpreted this examination/study. This report was electronically signed by Yolanda MCCARTHY M.D. ??on 12/27/2016 3:49 PM . Narrative 12/27/2016 3:49 PM RESEARCH AND DEVELOPMENT DIRECTOR EXAMINATION: PX CHEST 1 VW HISTORY: post implantation of pacemaker lead COMPARISON: No prior study is available for comparison. FINDINGS/ Procedure Note Laurel Mccarthy MD - 02/22/2018 EXAMINATION: PX CHEST 1 VW HISTORY: post implantation of pacemaker lead COMPARISON: No prior study is available for comparison. FINDINGS/ IMPRESSION IMPRESSION: A pacemaker superimposes the left upper with intact leads. Mediansternotomy wires appear intact. 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 Mildpulmonary vascular congestion is seen. Linear opacities in the left lungbase likely represent atelectasis. There is no pneumothorax or pleural effusion. The mediastinal silhouette isnormal. The cardiac silhouette is enlarged. The visible bony thorax isintact. Dictated by Spencer Nuñez MD (interventional radiology rn). IDr. Yolanda M.D. have personally reviewed and interpreted thisexamination/study. This report was electronically signed by Yolanda MCCARTHY M.D. on12/27/2016 3:49 PM . Telma Jansen MD DIAGNOSTIC IMAGING O RDERABLES * EP REVISION REPOSITION LEAD (12/26/2016 3:47 PM RESEARCH AND DEVELOPMENT DIRECTOR) Anatomical Region Laterality Modality Other Narrative 12/26/2016 3:47 PM RESEARCH AND DEVELOPMENT DIRECTOR This procedure was performed by a Cardiac Director Of Guidance in the EP lab. ??Please see the Op Note or Procedures Note placed by Electrophysiology. Procedure Note ProviderDwayne MD - 05/03/2018 This procedure was performed by a Cardiac Director Of Guidance in the EPlab. Please see the Op Note or Procedures Note placed byElectrophysiology. Telma Jansen MD ELECTROPHYS RADIANT * ECHO 2D ONLY WO COLOR OR DOPPLER (12/05/2016 11:01 AM RESEARCH AND DEVELOPMENT DIRECTOR) Only the most recent of3 resultswithin the time period is included. Anatomical Region Laterality Modality Other Narrative 12/05/2016 11:01 AM RESEARCH AND DEVELOPMENT DIRECTOR [facility] CARDI[facility] 2-D & M-Mode Echocardiogram Report Color Flow Doppler Report Patients Name: Kay Winn ?: 1945 Age: 71 y.o. Gender: female Referring Physician: Paramjit Escobar MD [address] [facility] [place] [address] Ordering Physician: ?? Primary Care Physician: Bebo Hansen Date of Test: ?? TAPE#: ?? Batcher Operator: teofilo Height: ??65 Weight: ??222 lb BSA: ?? Introduction: Kay Winn is a 71 y.o. female presenting with Dyspnea. Indication: dyspnea Chamber Measurements LV Internal Dimension Systole (cm): 3.8 cm LV Internal Dimension Diastole (cm): 5.4 cm Septal Thickness (cm): 1.4 cm Posterior Wall Thickness (cm): 1.4 cm Aortic Root Measurement (cm): 3.6 cm Left Atrium Measurement (cm): 4.6 cm LVOT Diameter (cm): 1.9 cm Ejection Fraction 60% Color Flow and Doppler Waveform Analysis Aortic Velocities: AV Max (m/s): 2.9 m/s LVOT max (m/s): 1.1 m/s Mitral Velocities: E (m/s): 1.6 m/s A (m/s): 0.3 m/s Tricuspid Velocities: Max Tricuspid Valve Velocity (m/s): 1 m/s PulmonicVelocities: Max Pulmonic Valve Velocity (m/s): 1 m/s OVERALL INTERPRETATION: - Normal left ventricular size and systolic function. Ejection fraction is estimated to be 60%. - Right ventricle not well seen. - Left ventricular hypertrophy. - Mild aortic stenosis with peak AV gradient of 30 mmHg, mean gradient of 13 mmHg, and calculated JADIEL of 2.3 cm2. - Normal mechanical prosthetic mitral valve velocities with a mean gradient of 2 mmHg and no mitral regurgitation. - Normal tricuspid valve structure and velocities. - Severe tricuspid regurgitation. Calculated right ventricular systolic pressure of 47 mmHg, consistent with mild pulmonary hypertension. - Pulmonic valve not well seen. ??Mild pulmonary insufficiency. - Pacemaker lead seen in right heart. Supervising Physician: Paramjit Escobar M.D. Reading Physician: Corinne Clemente MD Procedure Note Provider, MD Dwayne - 05/03/2018 [facility] C4 CARDIOLOGY 2-D & M-Mode Echocardiogram Report Color Flow Doppler Report Patients Name: Kay Winn : 1945 Age: 71 y.o. Gender: female Referring Physician: Paramjit Escobar MD [address] [facility] [address] [place] [address] Ordering Physician: Primary Care Physician: Bebo Hansen Date of Test: TAPE#: Batcher Operator: ds Height: 65 Weight: 222 lb BSA: Introduction: Kay Winn is a 71 y.o. female presenting withDyspnea. Indication: dyspnea Chamber Measurements LV Internal Dimension Systole (cm): 3.8 cm LV Internal Dimension Diastole (cm): 5.4 cm Septal Thickness (cm): 1.4 cm Posterior Wall Thickness (cm): 1.4 cm Aortic Root Measurement (cm): 3.6 cm Left Atrium Measurement (cm): 4.6 cm LVOT Diameter (cm): 1.9 cm Ejection Fraction 60% Color Flow and Doppler Waveform Analysis Aortic Velocities: AV Max (m/s): 2.9 m/s LVOT max (m/s): 1.1 m/s Mitral Velocities: E (m/s): 1.6 m/s A (m/s): 0.3 m/s Tricuspid Velocities: Max Tricuspid Valve Velocity (m/s): 1 m/s PulmonicVelocities: Max Pulmonic Valve Velocity (m/s): 1 m/s OVERALL INTERPRETATION: - Normal left ventricular size and systolic function. Ejection fraction isestimated to be 60%. - Right ventricle not well seen. - Left ventricular hypertrophy. - Mild aortic stenosis with peak AV gradient of 30 mmHg, mean gradient of13 mmHg, and calculated JADIEL of 2.3 cm2. - Normal mechanical prosthetic mitral valve velocities with a meangradient of 2 mmHg and no mitral regurgitation. - Normal tricuspid valve structure and velocities. - Severe tricuspid regurgitation. Calculated right ventricular systolicpressure of 47 mmHg, consistent with mild pulmonary hypertension. - Pulmonic valve not well seen. Mild pulmonary insufficiency. - Pacemaker lead seen in right heart. Supervising Physician: Paramjit Escobar M.D. Reading Physician: Corinne Clemente MD Paramjit Escobar MD ECHOCARDIOGRAPHY RAD IANT * CARDIAC ECHOCARDIOGRAM COMPLETE ORDER (12/01/2016) Only the most recent of2 resultswithin the time period is included. Scanned Document ECHO ORDERABLES * PROC IMPLANT WEAR CARDIAC DEVICE EVAL (11/29/2016 5:51 PM RESEARCH AND DEVELOPMENT DIRECTOR) Narrative H RADIOLOGY - 11/29/2016 5:51 PM RESEARCH AND DEVELOPMENT DIRECTOR Interrogation discussed in progress note from today and scanned into media Procedure Note ProviderDwayne MD - 05/03/2018 Interrogation discussed in progress note from today and scanned intomedia Paramjit Escobar MD PROCEDURE/MINOR SURG ICAL ORDERABLES [facility] * HEMOGLOBIN A1C - POINT OF CARE (HgbA1C) (11/23/2016 11:52 AM RESEARCH AND DEVELOPMENT DIRECTOR) Only the most recent of12 resultswithin the time period is included. Hemoglobin A1c POCT 6.4 % QC Verified Yes Blood BLOOD SPECIMEN / Unknown 11/23/2016 11:52 AM RESEARCH AND DEVELOPMENT DIRECTOR Bebo Hansen MD LAB - POINT OF CARE ORDERABLES * ENDOSCOPY, COLON, SCREENING (10/30/2016) Provider Unknown GI PROCEDURE ORDERAB LES * ENDOSCOPY, COLON, SCREENING (10/30/2016) Provider Unknown GI PROCEDURE ORDERAB LES * CCL CATH RIGHT HEART (10/24/2016 8:48 AM RESEARCH AND DEVELOPMENT DIRECTOR) Anatomical Region Laterality Modality X-Ray Angiograph y Narrative 10/30/2016 11:48 AM RESEARCH AND DEVELOPMENT DIRECTOR [facility] Cardiac Catheterization Procedure Note Patient: Kay Winn Age: 71 y.o. Date of : 1945 Date of Admission: 10/24/2016 Procedure Date: 10/24/16 FELLOW / EMERGENCY SERVICES DIRECTOR: Fady Gill MD; ludwin Chang MD ATTENDING PHYSICIAN: Néstor Romeo MD PREVIOUS STRESS STUDIES WITHIN 6 MONTHS: None DIAGNOSTIC APPROPRIATENESS CRITERIA: 98, 99 HISTORY: Patient is a 71 y.o. femalewith history of HTN, dyslipidemia, COPD, atrial fibrillation, MVR with mechanical mitral valve, CMP, DM who was found to have worsening pulmonary hypertension. She is therefore referred to the cardiac catheterization lab to evaluate pulmonary hemodynamics and assess vasodilator response. ACCESS SITE(S): ?? right antecubital vein PROCEDURAL OVERVIEW: After obtaining informed consent and positioning the patient on the catheterization table, a timeout was performed to confirm the patient? s name, date of , and procedure. ??Sedation was initiated and the patient was prepped and draped using standard sterile technique. ??Lidocaine was used for local anesthesia over the access site, after which the vessel was accessed and a sheath was placed using the modified Seldinger technique. ??Access was uncomplicated. Standard right heart catheterization was performed using a Long Barn-Dank catheter. ??At the conclusion of the procedure, hemostasis was achieved using manual compression after removal of all catheters, wires, and sheaths. ?? COMPLICATIONS: None HEMODYNAMIC FINDINGS: ?? Pressures (mmHg): RA: 18 RV: 70/18 PA: 68/33 (mean of 43) PCWP: 26 with prominent V wave (35 mmHg) Systemic BP from cuff: ??120/60 (mean of 80) ? O2 saturation on room air (%): RA: 61 PA: 59 Arterial: 97 ? Hemoglobin: 12.9 g/dl ? CO: 4.5 L/min (RADHA) CI: 2.2 L/min/m2 (RADHA) ? Transpulmonary gradient: 18 mmHg PVR: 4 Keys units Diastolic pulmonary gradient: ??12 mmHg Vasodilator challenge was not performed due to elevated PCWP. DIAGNOSTIC INTERPRETATIONS: 1. ??Moderate pulmonary hypertension, likely group 2, with component of pulmonary arterial hypertension is also suspected given elevated transpulmonary gradient, pulmonary vascular resistance and diastolic pulmonary gradient. 2. ??Normal cardiac output. RECOMMENDATIONS AFTER DIAGNOSTIC CATHETERIZATION: ?? 1. ??Diuresis then and repeat RHC with NO challenge. 2. ??Continue titration of medications for cardiomyopathy. Néstor Perry MD 10/30/2016 Dr. Perry was present for the entirety of the described procedure. I was present for the entire procedure. Néstor Perry MD 10/30/2016/:51 AM Procedure Note Néstor Perry MD - 05/03/2018 [facility] Cardiac Catheterization Procedure Note Patient: Kay Winn Age: 71 y.o. Date of : 1945 Date of Admission: 10/24/2016 Procedure Date: 10/24/16 FELLOW / EMERGENCY SERVICES DIRECTOR: Fady Gill MD; ludwin Chang MD ATTENDING PHYSICIAN: Néstor Romeo MD PREVIOUS STRESS STUDIES WITHIN 6 MONTHS: None DIAGNOSTIC APPROPRIATENESS CRITERIA: 98, 99 HISTORY: Patient is a 71 y.o. femalewith history of HTN, dyslipidemia,COPD, atrial fibrillation, MVR with mechanical mitral valve, CMP, DM whowas found to have worsening pulmonary hypertension. She is thereforereferred to the cardiac catheterization lab to evaluate pulmonary hemodynamics and assess vasodilator response. ACCESS SITE(S): right antecubital vein PROCEDURAL OVERVIEW: After obtaining informed consent and positioning the patient on thecatheterization table, a timeout was performed to confirm the patient? sname, date of , and procedure. Sedation was initiated and thepatient was prepped and draped using standard sterile technique. Lidocaine was used for local anesthesia over theaccess site, after which the vessel was accessed and a sheath was placedusing the modified Seldinger technique. Access was uncomplicated.Standard right heart catheterization was performed using a Long Barn-Dank catheter. At the conclusion of the procedure,hemostasis was achieved using manual compression after removal of allcatheters, wires, and sheaths. COMPLICATIONS: None HEMODYNAMIC FINDINGS: Pressures (mmHg): RA: 18 RV: 70/18 PA: 68/33 (mean of 43) PCWP: 26 with prominent V wave (35 mmHg) Systemic BP from cuff: 120/60 (mean of 80) ? O2 saturation on room air (%): RA: 61 PA: 59 Arterial: 97 ? Hemoglobin: 12.9 g/dl ? CO: 4.5 L/min (RADHA) CI: 2.2 L/min/m2 (RADHA) ? Transpulmonary gradient: 18 mmHg PVR: 4 Keys units Diastolic pulmonary gradient: 12 mmHg Vasodilator challenge was not performed due to elevated PCWP. DIAGNOSTIC INTERPRETATIONS: 1. Moderate pulmonary hypertension, likely group 2, with component ofpulmonary arterial hypertension is also suspected given elevatedtranspulmonary gradient, pulmonary vascular resistance and diastolicpulmonary gradient. 2. Normal cardiac output. RECOMMENDATIONS AFTER DIAGNOSTIC CATHETERIZATION: 1. Diuresis then and repeat RHC with NO challenge. 2. Continue titration of medications for cardiomyopathy. Néstor Perry MD 10/30/2016 Dr. Perry was present for the entirety of the described procedure. I was present for the entire procedure. Néstor Perry MD 10/30/2016/11:51 AM Paramjit Escobar MD CARDIAC PERSONAL CLOTHING LAUNDRY AIDE RAD IANT * (ABNORMAL) DIFFERENTIAL MANUAL (10/24/2016 7:23 AM RESEARCH AND DEVELOPMENT DIRECTOR) WBC (corrected for NRBC) 12.1 10? 3 /uL [facility] Total Cell Count 100 [facility] Neutrophils Absolute Manual 9.92(H) 1.60 - 7.00 10? 3 /uL [facility] Comment:(BANDS+SEGS) x WBC = NEUT # (ANC) Lymphocyte Absolute Manual 1.09 0.80 - 2.90 10? 3 /uL [facility] Monocytes Absolute Manual 0.73(H) 0.14 - 0.66 10? 3 /uL [facility] Eosinophils Absolute Manual 0.12 0.00 - 0.22 10? 3 /uL [facility] Band % Manual 29(H) 0 - 10 % [facility] Neutrophil % Manual 53 30 - 60 % [facility] Lymphocyte % Manual 9(L) 20 - 45 % [facility] Monocytes % Manual 6 2 - 10 % [facility] Eosinophils % Manual 1 1 - 6 % [facility] Abnormal % Manual 2(H) 0 % [facility] Platelet Estimate Adequate Adequate [facility] Ovalocytes 1+(A) None [facility] Blood specimen (specimen) BLOOD SPECIMEN / Unknown 10/24/2016 7:23 AM RESEARCH AND DEVELOPMENT DIRECTOR 10/24/2016 7:26 AM RESEARCH AND DEVELOPMENT DIRECTOR Néstor Perry MD LAB - HEMATOLOGY OR DERABLES [address] [phone] * ENDOSCOPY, COLON, SCREENING (10/23/2016) Provider Unknown GI PROCEDURE ORDERAB LES * MAMMO SCREENING DIGITAL IMAGE BILAT (08/02/2016) Only the most recent of2 resultswithin the time period is included. Anatomical Region Laterality Modality Breast Bilateral Mammography Provider Unknown MAMMO ORDERABLES * PROC IMPLANT WEAR CARDIAC DEVICE EVAL (07/26/2016 5:23 PM CDT) Narrative [facility] - 07/26/2016 5:23 PM CDT Pacemaker interrogation discussed in progress note from today. ??Full interrogation scanned into media Procedure Note ProviderDwayne MD - 05/03/2018 Pacemaker interrogation discussed in progress note from today. Fullinterrogation scanned into media Paramjit Escobar MD PROCEDURE/MINOR SURG ICAL ORDERABLES Performing Organization Address [facility] Co de Phone Number [facility] * (ABNORMAL) MICROALB/CREAT RATIO URINE RANDOM PANEL (07/24/2016 7:53 AM CDT) Only the most recent of5 resultswithin the time period is included. Creatinine Urine 73 20 - 320 mg/dL [facility] Comment: Test Performed at: [place], [place] ??[phone] HERMELINDO ROJAS DO,MPH Microalbumin Urine 2.8 mg/dL [facility] Comment: Reference Range Not established Test Performed at: [facility] [place], [place] ??[phone] HERMELINDO ROJAS DO,MPH Microalbumin/Creat inine Ratio 38(H) <30 [...] MD LAB - URINE CHEMISTR Y ORDERABLES Performing Organization Address City/[facility]/ZIP Co de Phone Number [facility] [address] [place] [address] * CARDIAC RHYTHM STRIP ORDER (07/10/2016 9:14 PM CDT) Narrative 07/10/2016 9:14 PM CDT Ordered by an unspecified provider. Scanned Document CARDIAC SERVICES ORD ERABLES * CARDIAC PACER/DEFIB ORDER (07/10/2016 9:14 PM CDT) Narrative 07/10/2016 9:14 PM CDT Ordered by an unspecified provider. Scanned Document CARDIAC SERVICES ORD ERABLES * (ABNORMAL) GLUCOSE - POINT OF CARE (07/09/2016 12:00 PM CDT) Only the most recent of10 resultswithin the time period is included. Glucose WB/POC 144(H) 70 - 106 mg/dL 07/10/2016 6:18 AM CDT [facility] Blood BLOOD SPECIMEN / Unknown 07/09/2016 12:00 PM CDT 07/10/2016 6:18 AM CDT Bebo Hansen MD LAB - POINT OF CARE ORDERABLES [facility] [address] [place] [address] * (ABNORMAL) RENAL FUNCTION PANEL (07/09/2016 4:21 AM CDT) Glucose 154(H) 74 - 106 mg/dL 07/09/2016 5:26 AM CDT [facility] Sodium 142 136 - 145 mmol/L 07/09/2016 5:26 AM CDT [facility] Potassium 4.0 3.5 - 5.1 mmol/L 07/09/2016 5:26 AM CDT [facility] Chloride 109(H) 98 - 107 mmol/L 07/09/2016 5:26 AM CDT [facility] CO2 26 22 - 31 mmol/L 07/09/2016 5:26 AM CDT [facility] Calcium 8.9 8.5 - 10.1 mg/dL 07/09/2016 5:26 AM CDT [facility] Anion Gap 7 5 - 20 mmol/L 07/09/2016 5:26 AM CDT [facility] BUN 21 7 - 21 mg/dL 07/09/2016 5:26 AM CDT [facility] Creatinine 1.30 0.50 - 1.30 mg/dL 07/09/2016 5:26 AM CDT [facility] Albumin 3.1(L) 3.4 - 5.0 gm/dL 07/09/2016 5:26 AM CDT [facility] Phosphorus 3.2 2.5 - 4.9 mg/dL 07/09/2016 5:26 AM CDT [facility] eGFR by MDRD 40 mL/min/1.7 3m2 07/09/2016 5:26 AM CDT [facility] eGFR by MDRD 49 mL/min/1.7 3m2 07/09/2016 5:26 AM CDT [facility] Blood BLOOD SPECIMEN / Unknown Lab Venipuncture / Unknown 07/09/2016 4:21 AM CDT 07/09/2016 4:57 AM CDT Jocelin Mccurdy MD LAB - CHEMISTRY OR DERABLES Performing Organization Address City/[facility] Co de Phone Number [facility] [address] [place] [id number] * MAGNESIUM BLOOD (07/09/2016 4:21 AM CDT) Only the most recent of3 resultswithin the time period is included. Pathologist [facility] Magnesium 2.1 1.6 - 2.6 mg/dL 07/09/2016 5:26 AM CDT [facility] Blood BLOOD SPECIMEN / Unknown Lab Venipuncture / Unknown 07/09/2016 4:21 AM CDT 07/09/2016 4:57 AM CDT Jocelin Mccurdy MD LAB - CHEMISTRY OR DERABLES Performing Organization Address City/[facility] Co de Phone Number [facility] [address] [place] [address] [phone] * RESPIRATORY PATHOGEN PANEL BY PCR (07/08/2016 7:02 AM CDT) Pathologist [facility] Adenovirus PCR Not detected Not detected, Invalid, Indeterminate 07/08/2016 2:[address] [facility] Human Metapneumovirus PCR Not detected Not detected, Invalid, Indeterminate 07/08/2016 2:[address] [facility] Human Rhinovirus/Entero virus PCR Not detected Not detected, Invalid, Indeterminate 07/08/2016 2:[address] [facility] Influenza A Non Subtyped PCR Not detected Not detected, Invalid, Indeterminate 07/08/2016 2:[address] [facility] Influenza A H1 PCR Not detected Not detected, Invalid, Indeterminate 07/08/2016 2:[address] [facility] Influenza A H3 PCR Not detected Not detected, Invalid, Indeterminate 07/08/2016 2:[address] [facility] Influenza A H1 2009 PCR Not detected Not detected, Invalid, Indeterminate 07/08/2016 2:[address] [facility] Influenza B PCR Not detected Not detected, Invalid, Indeterminate 07/08/2016 2:[address] [facility] Mycoplasma pneumoniae PCR Not detected Not detected, Invalid, Indeterminate 07/08/2016 2:[address] [facility] Parainfluenza Virus 1 PCR Not detected Not detected, Invalid, Indeterminate 07/08/2016 2:[address] [facility] Parainfluenza Virus 2 PCR Not detected Not detected, Invalid, Indeterminate 07/08/2016 2:[address] [facility] Parainfluenza Virus 3 PCR Not detected Not detected, Invalid, Indeterminate 07/08/2016 2:[address] [facility] Parainfluenza Virus 4 PCR Not detected Not detected, Invalid, Indeterminate 07/08/2016 2:[address] [facility] Respiratory Syncytial Virus PCR Not detected Not detected, Invalid, Indeterminate 07/08/2016 2:[address] [facility] Bordetella pertussis PCR Not detected Not detected, Invalid 07/08/2016 2:[address] [facility] Microbiology NASOPHARYNGEAL SWAB / Unknown Collection / Unknown 07/08/2016 7:02 AM CDT 07/08/2016 7:08 AM CDT Mecca Butler MD LAB - MICROBIOLOGY O RDERABLES [facility] [address] [place], [address] [phone] * TROPONIN I (07/08/2016 4:20 AM CDT) Only the most recent of7 resultswithin the time period is included. [facility] Troponin I 0.016 0.000 - 0.049 ng/mL 07/08/2016 5:30 AM CDT [facility] Blood BLOOD SPECIMEN / Unknown Lab Venipuncture / Unknown 07/08/2016 4:20 AM CDT 07/08/2016 5:01 AM CDT Narrative [facility] - 07/08/2016 5:30 AM CDT Note: Diagnosis of myocardial infarction requires symptoms of ischemia or EKG changes of ischemia and Troponin I >99th of normal (0.05 ng/mL). Troponin should be drawn on initial assessment and 3-6 hours later as clinically indicated. Any condition resulting in myocardial cell damage can increase cardiac troponin levels. In addition to myocardial infarction, these include but are not limited to congestive heart failure (CHF), arrhythmia, myocarditis, and non-cardiac related causes such as pulmonary embolism, renal failure and sepsis. Jocelin Mccurdy MD LAB - CHEMISTRY OR DERABLES Performing Organization Address City/[facility]/ZIP Co de Phone Number [facility] [address] [place], [place] [id number] * FOLATE (07/08/2016 4:20 AM CDT) [facility] Folate 12.7 3.1 - 17.5 ng/mL 07/08/2016 5:59 AM CDT [facility] Blood BLOOD SPECIMEN / Unknown Lab Venipuncture / Unknown 07/08/2016 4:20 AM CDT 07/08/2016 5:01 AM CDT Jocelin Mccurdy MD LAB - CHEMISTRY OR DERABLES Performing Organization Address City/[facility]/ZIP Co de Phone Number [facility] [address] [place] [id number] * (ABNORMAL) VITAMIN B12 (07/08/2016 4:20 AM CDT) [facility] Vitamin B12 1,501(H) 211 - 911 pg/mL 07/08/2016 5:59 AM CDT [facility] Blood BLOOD SPECIMEN / Unknown Lab Venipuncture / Unknown 07/08/2016 4:20 AM CDT 07/08/2016 5:01 AM CDT Jocelin Mccurdy MD LAB - CHEMISTRY OR DERABLES Performing Organization Address City/State/[facility] Co de Phone Number [facility] [address] [place] [address] * CT ANGIO NECK HEAD W WO CONTRAST (CTA for STROKE) (07/07/2016 7:41 PM CDT) Anatomical Region Laterality Modality Head Computed Tomogra phy 07/07/2016 7:46 PM CDT Impressions 07/07/2016 7:58 PM CDT 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 No evidence of proximal intracranial occlusion. Possible 3 mm left upper lobe pulmonary nodule. Narrative 07/07/2016 7:58 PM CDT Examination: CT angiography of the cervical carotids and [place] of Mary with contrast History: Dizziness Findings: CT angiography of the cervical carotids and [place] of Mary was performed following the uneventful administration of 100 mL of Visipaque 320 intravenous contrast. Sagittal and coronal reformatted images were performed. Comparison is made to a CT of the head dated 07/07/2016. Images through the upper chest demonstrate patchy likely atelectasis. No pneumothorax or pleural effusion is seen. There is a possible left upper lobe pulmonary nodule measuring 3 mm. Prior median sternotomy has been performed. Left-sided central venous catheter or pacemaker wire is seen. No upper mediastinal adenopathy is noted. Layering contrast is noted in the right jugular vein. No cervical adenopathy is seen. Orbits appear normal. Postcontrast images of the brain parenchyma demonstrate no enhancing mass. No suspicious osseous lytic or blastic lesion is seen. There is atherosclerosis of the aortic arch. There is a two-vessel aortic arch. Left common carotid artery is patent. There is atherosclerosis of the left carotid bifurcation without significant focal stenosis. There is mild stenosis just cranial to the left carotid bifurcation. The left internal carotid is patent to the skull base. Right internal carotid artery is patent. There is atherosclerosis and minimal stenosis of the right internal carotid artery just superior to the bifurcation. There is atherosclerosis of the right carotid bifurcation without significant stenosis. The right common carotid artery is patent. The right vertebral artery is patent. Left vertebral artery is patent. The basilar artery is patent. The right posterior cerebral artery arises largely from the anterior circulation. The posterior cerebral artery is patent. The left posterior cerebral artery is also patent. There is atherosclerosis of the cavernous internal carotid arteries bilaterally. The left middle cerebral artery is patent. The anterior cerebral arteries are patent. The right middle cerebral artery is patent. Procedure Note Amanuel Amaya MD - 07/07/2016 Examination: CT angiography of the cervical carotids and [place] of Mary with contrast History: Dizziness Findings: CT angiography of the cervical carotids and [place] of Mary was performed following the uneventful administration of 100 mL of Visipaque 320 intravenous contrast. Sagittal and coronal reformatted images were performed. Comparison is made to a CT of the head dated 07/07/2016. Images through the upper chest demonstrate patchy likely atelectasis. No pneumothorax or pleural effusion is seen. There is a possible left upper lobe pulmonary nodule measuring 3 mm. Prior median sternotomy has been performed. Left-sided central venous catheter or pacemaker wire is seen. No upper mediastinal adenopathy is noted. Layering contrast is noted in the right jugular vein. No cervical adenopathy is seen. Orbits appear normal. Postcontrast images of the brain parenchyma demonstrate no enhancing mass. No suspicious osseous lytic or blastic lesion is seen. There is atherosclerosis of the aortic arch. There is a two-vessel aortic arch. Left common carotid artery is patent. There is atherosclerosis of the left carotid bifurcation without significant focal stenosis. There is mild stenosis just cranial to the left carotid bifurcation. The left internal carotid is patent to the skull base. Right internal carotid artery is patent. There is atherosclerosis and minimal stenosis of the right internal carotid artery just superior to the bifurcation. There is atherosclerosis of the right carotid bifurcation without significant stenosis. The right common carotid artery is patent. The right vertebral artery is patent. Left vertebral artery is patent. The basilar artery is patent. The right posterior cerebral artery arises largely from the anterior circulation. The posterior cerebral artery is patent. The left posterior cerebral artery is also patent. There is atherosclerosis of the cavernous internal carotid arteries bilaterally. The left middle cerebral artery is patent. The anterior cerebral arteries are patent. The right middle cerebral artery is patent. 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 No evidence of proximal intracranial occlusion. Possible 3 mm left upper lobe pulmonary nodule. Hallie Velasquez MD CT ORDERABLES * CT HEAD NON CONTRAST (07/07/2016 5:57 PM CDT) Anatomical Region Laterality Modality Head Computed Tomogra phy 07/07/2016 6:15 PM CDT Impressions 07/07/2016 6:20 PM CDT 1. No acute intracranial process. Narrative 07/07/2016 6:20 PM CDT EXAMINATION: Computed tomography (CT) of the head without contrast HISTORY: Trauma. TECHNIQUE: CT of the head was performed without contrast according to standard protocol. FINDINGS: No prior study is available for comparison. No acute intra- or extra-axial fluid collections are identified. There is mild diffuse volume loss. There is no midline shift. Ventricular size is appears normal. The basal cisterns are patent. Mild periventricular white matter low-attenuation is present which is nonspecific but may be seen with chronic small vessel ischemic disease. Intracranial atherosclerosis is noted. Orbits appear normal. No acute skull fracture is seen. There is fluid and mucosal thickening involving the ethmoids. Visualized mastoids are clear. Procedure Note Amanuel Amaya MD - 07/07/2016 EXAMINATION: Computed tomography (CT) of the head without contrast HISTORY: Trauma. TECHNIQUE: CT of the head was performed without contrast according to standard protocol. FINDINGS: No prior study is available for comparison. No acute intra- or extra-axial fluid collections are identified. There is mild diffuse volume loss. There is no midline shift. Ventricular size is appears normal. The basal cisterns are patent. Mild periventricular white matter low-attenuation is present which is nonspecific but may be seen with chronic small vessel ischemic disease. Intracranial atherosclerosis is noted. Orbits appear normal. No acute skull fracture is seen. There is fluid and mucosal thickening involving the ethmoids. Visualized mastoids are clear. IMPRESSION 1. No acute intracranial process. Vince Leal MD CT ORDERABLES * (ABNORMAL) NT-PRO BNP (07/07/2016 4:13 PM CDT) NT-proBNP 848.0(H) <300.0 pg/mL 07/07/2016 7:46 PM CDT [facility] Blood BLOOD SPECIMEN / Unknown 07/07/2016 4:13 PM CDT 07/07/2016 7:23 PM CDT Narrative [facility] - 07/07/2016 7:46 PM CDT NT-proBNP Patient Age ? Acute HF Unlikely ? Acute HF Likely <50 years ? <300 pg/mL ? >450 pg/mL 50-75 years ?<300 pg/mL ? >900 pg/mL >75 years ? <300 pg/mL ? >1800 pg/mL Reference: MICHAEL Caal et al. ICON Study. Heart Journal (2006) 27, 330- 337 Both BNP and NT-proBNP derive from the precursor molecule called proBNP which is secreted from the ventricles in response to ventricle volume expansion and/or pressure overload. The secreted proBNP is subsequently cleaved by enzymes to form BNP, the active hormone and NT-proBNP an inactive metabolite. NT-proBNP has a longer half-life of 1.5-2.0 hours verses BNP with a half-life of 20 min for BNP. Both are useful biomarkers of ventricular distension due to increased intracardiac pressure. Both BNP and NT-proBNP increase with age and renal insufficiency. Increased concentrations of NT-proBNP have also been observed in the setting of acute myocardial infarction, right ventricular failure, valvular heart disease, and atrial fibrillation. Shaniqua Gan MANAGER QUANTITATIVE-CREDIT UNION EXAMINER LAB - CHEMISTRY ORDERABLES [facility] [address] [place] [address] * PTT (07/07/2016 1:23 PM CDT) Pathologist [facility] PTT 28.4 21.0 - 32.0 sec 07/07/2016 1:43 PM CDT [facility] Blood BLOOD SPECIMEN / Unknown Venipuncture / Unknown 07/07/2016 1:23 PM CDT 07/07/2016 1:25 PM CDT Narrative [facility] - 07/07/2016 1:43 PM CDT Heparin Therapeutic Range for PTT: 47.7 - 68.6 seconds. Hallie Velasquez MD LAB - COAGULATION OR DERABLES Performing Organization Address City/[facility]/ZIP Co de Phone Number [facility] [address] [place] [address] * DIABETES EYE EXAM (03/13/2016) Only the most recent of2 resultswithin the time period is included. Scanned Document HEALTH MAINTENANCE * (ABNORMAL) URINALYSIS MICROSCOPIC ONLY W/REFLEX CULTURE (09/18/2015 11:07 AM CDT) Epithelial Cell UA 10-20(A) 0-2, 2-5 09/18/2015 11:38 AM CDT [facility] Hyaline Casts 0-2 0 - 2 # /lpf 09/18/2015 11:38 AM CDT [facility] Urine URINE SPECIMEN OBTAINED BY CLEAN CATCH PROCEDURE / Unknown Collection / Unknown 09/18/2015 11:07 AM CDT 09/18/2015 11:10 AM CDT Matt Estrada MD LAB - URINALYSIS ORD ERABLES Performing Organization Address City/[facility] Co de Phone Number [facility] [address] [place] [address] * B-TYPE NATRIURETIC PEPTIDE (09/18/2015 9:57 AM CDT) Only the most recent of3 resultswithin the time period is included. BNP 94 0 - 100 pg/mL 09/18/2015 10:51 AM CDT [facility] Blood BLOOD SPECIMEN WITH EDTA / Unknown Venipuncture / Unknown 09/18/2015 9:57 AM CDT 09/18/2015 10:01 AM CDT Narrative [facility] - 09/18/2015 10:51 AM CDT A cutoff of 100 pg/mL has been demonstrated to provide the maximal combination of sensitivity, specificity, and negative predictive value for contributing to the diagnosis of congestive heart failure (CHF) only. ??A B-Type Natriuretic Peptide (BNP) value greater than or equal to 100 pg/mL is consistent with a diagnosis of CHF in the appropriate clinical setting. ??False positive results are more common in females greater than 75 years of age. ??Blood concentrations of natriuretic peptides may also be elevated in patients with myocardial infarction and in patients who are candidates for or are undergoing renal dialysis. Matt Estrada MD LAB - CHEMISTRY KATIA SHER Performing Organization Address City/[facility] Co de Phone Number [facility] [address] [place] [address] * (ABNORMAL) URIC ACID BLOOD (06/29/2015 7:56 AM CDT) Only the most recent of3 resultswithin the time period is included. Uric Acid 10.3(H) 2.5 - 7.0 mg/dL [facility] Comment: Therapeutic target for gout patients: <6.0 mg/dL ?? Test Performed at: [employer] [facility] ??[phone] HERMELINDO ROJAS DO,MPH Blood specimen (specimen) BLOOD SPECIMEN / Unknown 06/29/2015 7:56 AM CDT 06/29/2015 7:57 AM CDT Bebo Hansen MD LAB - CHEMISTRY KATIA SHER Performing Organization Address [facility] Co de Phone Number [facility] [address] [place] [address] * C-REACTIVE PROTEIN SENSITIVE (06/29/2015 7:56 AM CDT) C-Reactive Protein High Sensitivity 1.3 mg/L [facility] Comment: Average relative cardiovascular risk according to AHA/CDC guidelines. For ages >17 Years: hs-CRP mg/L ??Risk According to AHA/CDC Guidelines <1.0 ? Lower relative cardiovascular risk. 1.0-3.0 ?Average relative cardiovascular risk. 3.1-10.0 ? Higher relative cardiovascular risk. ? Consider retesting in 1 to 2 weeks to ? exclude a benign transient elevation ? in the baseline CRP value secondary ? to infection or inflammation. >10.0 ?Persistent elevation, upon retesting, ? may be associated with infection and ? inflammation. Test Performed at: [employer] [facility] [address] [place] [address] ??[phone] HERMELINDO ROJAS DO,MPH Blood specimen (specimen) BLOOD SPECIMEN / Unknown 06/29/2015 7:56 AM CDT 06/29/2015 7:57 AM CDT Bebo Hansen MD LAB - CHEMISTRY KATIA SHER Performing Organization Address [facility] de Phone Number [address] [address] * ADRIANA BLOOD SCREEN W/REFLEX TITER (06/29/2015 7:56 AM CDT) Only the most recent of2 resultswithin the time period is included. [facility] ADRIANA Screen NEGATIVE NEGATIVE [facility] Comment: Test Performed at: [employer] [address] ??[phone] HERMELINDO ROJAS DO,MPH Blood specimen (specimen) BLOOD SPECIMEN / Unknown 06/29/2015 7:56 AM CDT 06/29/2015 7:57 AM CDT Bebo Hansen MD LAB - CHEMISTRY KATIA SHER Performing Organization Address [facility] de Phone Number [address] [address] * SED RATE WESTERGREN (06/29/2015 7:56 AM CDT) Only the most recent of3 resultswithin the time period is included. [facility] Erythrocyte Sedimentation Rate Westergren 11 < OR = 30 mm/h [facility] Comment: Test Performed at: [employer] ??[phone] MARTINA GARRETT MD Blood specimen (specimen) BLOOD SPECIMEN / Unknown 06/29/2015 7:56 AM CDT 06/29/2015 7:57 AM CDT Bebo Hansen MD LAB - HEMATOLOGY ORD ERABLES Performing Organization Address City/[facility]/ZIP Co de Phone Number [address] [address] * (ABNORMAL) CK BLOOD (06/29/2015 7:56 AM CDT) Only the most recent of4 resultswithin the time period is included. CK 21(L) 29 - 143 U/L [facility] Comment: Test Performed at: [employer] [facility] [place] ??[phone] HERMELINDO ROJAS DO,MPH Blood specimen (specimen) BLOOD SPECIMEN / Unknown 06/29/2015 7:56 AM CDT 06/29/2015 7:57 AM CDT Bebo Hansen MD LAB - CHEMISTRY ORDE RABKEISHA Performing Organization Address City/[facility] Co de Phone Number [address] [address] * (ABNORMAL) LIPID PROFILE (06/29/2015 7:56 AM CDT) Only the most recent of3 resultswithin the time period is included. Cholesterol 115(L) 125 - 200 mg/dL [facility] Comment: Test Performed at: [place], [place] ??[phone] HERMELINDO ROJAS DO,MPH HDL Cholesterol 30(L) > OR = 46 mg/dL [facility] Triglycerides 138 <150 mg/dL [facility] LDL Calculated 57 <130 mg/dL (calc) [facility] Comment: Desirable range <100 mg/dL for patients with CHD or diabetes and <70 mg/dL for diabetic patients with known heart disease. CHOL/HDLC RATIO 3.8 < OR = 5.0 (calc) [facility] Non HDL Cholesterol 85 mg/dL (calc) [facility] Comment: Target for non-HDL cholesterol is 30 mg/dL higher than LDL cholesterol target. Blood specimen (specimen) BLOOD SPECIMEN / Unknown 06/29/2015 7:56 AM CDT 06/29/2015 7:57 AM CDT Bebo Hansen MD LAB - CHEMISTRY KATIA SHER Performing Organization Address City/[facility]/ZIP Co de Phone Number [facility] [address] [place] [address] * CULTURE AFB+SMEAR (10/31/2014 8:07 AM RESEARCH AND DEVELOPMENT DIRECTOR) Only the most recent of2 resultswithin the time period is included. Culture No Acid Fast Bacillus Isolated 12/14/2014 8:20 AM RESEARCH AND DEVELOPMENT DIRECTOR [facility] AFB Smear No Acid Fast bacilli seen 12/14/2014 8:20 AM RESEARCH AND DEVELOPMENT DIRECTOR [facility] Microbiology SPECIMEN FROM LUNG OBTAINED BY BRONCHIAL WASHING PROCEDURE / Unknown 10/31/2014 8:07 AM RESEARCH AND DEVELOPMENT DIRECTOR 10/31/2014 8:07 AM RESEARCH AND DEVELOPMENT DIRECTOR Don Daniel MD LAB - MICROBIOLOGY O FELICITY Performing Organization Address [facility] Co de Phone Number [facility] [address] [place] [address], [facility] * (ABNORMAL) CULTURE FUNGUS OTHER+FUNGUS SMEAR (10/30/2014 9:06 AM RESEARCH AND DEVELOPMENT DIRECTOR) Only the most recent of2 resultswithin the time period is included. Culture Rare growth Melani dubliniensis(A) KOFI 11/23/2014 5:51 AM RESEARCH AND DEVELOPMENT DIRECTOR [facility] Fungus Smear No yeast or hyphae seen 11/23/2014 5:51 AM RESEARCH AND DEVELOPMENT DIRECTOR [facility] Fungus Smear No Pneumocystis jirovecii 11/23/2014 5:51 AM RESEARCH AND DEVELOPMENT DIRECTOR [facility] Microbiology BRONCHIOLOALVEOLAR LAVAGE / Unknown Collection / Unknown 10/30/2014 9:06 AM RESEARCH AND DEVELOPMENT DIRECTOR 10/30/2014 10:11 AM RESEARCH AND DEVELOPMENT DIRECTOR Don Daniel MD LAB - MICROBIOLOGY O FELICITY Performing Organization Address [facility] Co de Phone Number [facility] [address] [place] [address], [place] * CULTURE BRONCHOALVEOLAR LAVAGE QNT+GRAM STAIN (10/30/2014 9:06 AM RESEARCH AND DEVELOPMENT DIRECTOR) Culture 10,000-50,000 CFU/mL normal oropharyngeal reyna KOFI 11/01/2014 4:19 AM [facility] Gram Stain Rare White blood cells 11/01/2014 4:19 AM [facility] Gram Stain Rare Gram positive cocci 11/01/2014 4:19 AM [facility] Gram Stain Rare Gram negative bacilli 11/01/2014 4:19 AM [facility] Microbiology BRONCHIOLOALVEOLAR LAVAGE / Unknown Collection / Unknown 10/30/2014 9:06 AM RESEARCH AND DEVELOPMENT DIRECTOR 10/30/2014 10:11 AM RESEARCH AND DEVELOPMENT DIRECTOR Don Daniel MD LAB - MICROBIOLOGY O RDERABLES Performing Organization Address City/[facility]/ZIP Co de Phone Number [facility] [address] [facility] [facility] [address] [place] [address] * (ABNORMAL) DIFFERENTIAL MANUAL FLUID (10/30/2014 9:06 AM [facility]) Total Nucleated Cells Fluid 353(H) 0 - 5 x10^6/L 10/30/2014 12:[address] [facility] Neutrophils % Fluid 20 % 10/30/2014 12:[address] [facility] Lymphocytes % Fluid 20 % 10/30/2014 12:[address] [facility] Monocytes % Fluid 10 % 10/30/2014 12:[address] [facility] Macrophage % Fluid 50 % 10/30/2014 12:[address] [facility] Cells Counted Fluid 100 10/30/2014 12:[address] [facility] Fluid BODY FLUID SPECIMEN / Unknown Collection / Unknown 10/30/2014 9:06 AM [facility] 10/30/2014 10:12 AM [facility] Don Daniel MD LAB - BODY FLUID ORD ERABLES [facility] [address] [place] [address] * CELL COUNT W DIFFERENTIAL FLUID (10/30/2014 9:06 AM [facility]) Fluid Type Body Fluid 10/30/2014 12:[address] [facility] Comment:BAL fluid Character Fluid Clear 10/30/2014 12:[address] [facility] Color Fluid Colorless 10/30/2014 12:[address] [facility] Total Nucleated Cells Fluid 353 x10^6/L 10/30/2014 12:[address] [facility] RBC Fluid <3,000 x10^6/L 10/30/2014 12:[address] [facility] Comment Fluid Manual Diff to follow 10/30/2014 12:[address] [facility] Fluid BODY FLUID SPECIMEN / Unknown Collection / Unknown 10/30/2014 9:06 AM RESEARCH AND DEVELOPMENT DIRECTOR 10/30/2014 10:12 AM [facility] Don Daniel MD LAB - BODY FLUID ORD ERABLES Performing Organization Address City/[facility]/ZIP Co de Phone Number [facility] [address] [place] [address] * CULTURE BRONCHIAL WASHING+GRAM STAIN (10/30/2014 9:05 AM [facility]) Culture Heavy growth normal oropharyngeal reyna KOFI 11/01/2014 4:43 AM [facility] Gram Stain Moderate Gram negative bacilli 11/01/2014 4:43 AM [facility] Gram Stain Moderate Gram positive cocci 11/01/2014 4:43 AM [facility] Gram Stain Moderate Gram positive bacilli 11/01/2014 4:43 AM [facility] Gram Stain Moderate White blood cells 11/01/2014 4:43 AM [facility] Microbiology SPECIMEN FROM LUNG OBTAINED BY BRONCHIAL WASHING PROCEDURE / Unknown Collection / Unknown 10/30/2014 9:05 AM RESEARCH AND DEVELOPMENT DIRECTOR 10/30/2014 10:12 AM RESEARCH AND DEVELOPMENT DIRECTOR Don Daniel MD LAB - MICROBIOLOGY O RDERABLES [facility] [address] [place] [address], [facility] * CYTOLOGY NON-RN SURGICAL PCU PANEL (STL) (10/30/2014 8:30 AM [facility]) Case Report Cytology Non Disability Program Navigator Report ? Case: [id number] ? Authorizing Provider: ??Don Daniel MD ? Collected: ? 10/30/2014 08:30 AM ? Ordering Location: ? [facility] ?Received: ?10/30/2014 11:40 AM ? Pathologist: ? Preet Ramos MD ? Specimen: ?Bronch Alveolar Lav ? 11/03/2014 3:[address] [facility] Final Diagnosis 1. ??Bronchial alveolar lavage, cell block and ThinPrep smear: -- ??No evidence of malignancy [facility] [place] 11/03/2014 3:[address] [facility] Gross Description The specimen is submitted fresh in a conical tube for cytology, labeled with the patient name, Kay Winn and BAL, consists of approximately 5 mL of light pink, translucent fluid with few floating debris. The fluid is entirely submitted for cytology. CORRECTIONAL SUPERVISOR/doe 11/03/2014 3:[address] [facility] Microscopic Description The bronchial alveolar lavage cell block and ThinPrep smear reveal bronchial alveolar macrophages. ??Malignant tumor cells are not seen. ??A GMS special stain for PCP is negative. All of the stain(s), control slide(s) and test tissue slide(s) were judged as technically acceptable. [facility] [place] 11/03/2014 3:19 PM RESEARCH AND DEVELOPMENT DIRECTOR [facility] Pathology/Cytol ogy BRONCHIOLOALVEOLAR LAVAGE / Unknown 10/30/2014 8:30 AM RESEARCH AND DEVELOPMENT DIRECTOR 10/30/2014 11:40 AM RESEARCH AND DEVELOPMENT DIRECTOR Don Daniel MD LAB - PATHOLOGY/CYTO LOGY ORDERABLES Performing Organization Address [facility]/State/ZIP Co de Phone Number [facility] [address], [place] [id number] * BRONCHOSCOPY (10/30/2014 8:05 AM RESEARCH AND DEVELOPMENT DIRECTOR) Report Endoscopy POC [facility] Pulmonology __ _ Patient Name: Kay Winn ? Procedure Date: 10/30/2014 8:05 AM ? Date of : 1945 ?Admit Type: Outpatient Age: 69 ? Gender: Female Attending MD: Don Daniel MD ? __ _ Procedure: ?Bronchoscopy Indications: ?Chronic cough with abnormal chest X-ray Providers: ?Don Daniel MD (Doctor), Antoinette Kurtz Referring MD: ? Bebo Hansen MD (Referring MD) Medicines: ?Monitored Anesthesia Care Complications: ?Hypoxia __ _ ? Procedure: ?After obtaining informed consent, the Bronchoscope was ?introduced through the mouth, via the endotracheal tube ?and advanced to the tracheobronchial tree of both ?lungs. The procedure was accomplished without ?difficulty. The patient tolerated the procedure fairly ?well. The total duration of the procedure was 10 ?minutes. Findings: ? The oropharynx appears normal. The larynx appears normal. The vocal ? cords move normally with phonation and breathing. The subglottic space ? is normal. The trachea is of normal caliber. The jaymie is sharp. The ? tracheobronchial tree was examined to at least the first subsegmental ? level. Bronchial mucosa and anatomy are normal; there are no ? endobronchial lesions, and no secretions. ? Washings were obtained in the entire tracheobronchial tree of the lung ? and sent for bacterial, AFB and fungal analysis. The return was clear. ? Bronchoalveolar lavage was performed in the CANDY superior lingular ? segment (B4) of the lung and sent for cell count, cytology, bacterial ? culture, viral smears & culture, and fungal and AFB analysis. 100 mL of ? fluid were instilled. 40 mL were returned. The return was clear. There ? were no mucoid plugs in the return fluid __ _ Impression: ? - Chronic cough with abnormal chest X-ray ?- The examination was normal. There was mild ?tracheobronchomal acia ?- Washings were obtained. ?- Bronchoalveolar lavage was performed. Recommendation: ? - The patient will be observed post-procedure, until ?all discharge criteria are met. ?- Await BAL results. ?- Follow up in clinic as previously scheduled. ? Procedure Code(s): ? --- Professional --- ? 48994, Bronchoscopy, rigid or flexible, including fluoroscopic guidance, ? when performed; with bronchial alveolar lavage Diagnosis Code(s): ?--- Professional --- ?793.19, Other nonspecific abnormal finding of lung field CPT copyright 2013 [employer]. All rights reserved. The codes documented in this report are preliminary and upon coach builder review may be revised to meet current compliance requirements. Don Daniel MD 10/30/2014 8:36 AM This report has been signed electronically. Number of Addenda: 0 Note Initiated On: 10/30/2014 8:05 AM Procedure Date: ? 10/30/2014 8:05:05 AM [facility] ENDOSCOPY 10/30/2014 8:05 AM RESEARCH AND DEVELOPMENT DIRECTOR Don Daniel MD PROCEDURE/MINOR SURG ICAL ORDERABLES [facility] ENDOSCOPY * CT CHEST WO CONT AND HIRES (10/09/2014 12:57 PM RESEARCH AND DEVELOPMENT DIRECTOR) Anatomical Region Laterality Modality Computed Tomogra phy 10/09/2014 6:30 PM RESEARCH AND DEVELOPMENT DIRECTOR Impressions 10/09/2014 6:44 PM RESEARCH AND DEVELOPMENT DIRECTOR No evidence of interstitial lung disease. ??Minimal tree-in-bud opacities and small areas of air trapping, likely reflecting mild small airways disease. Narrative 10/09/2014 6:44 PM RESEARCH AND DEVELOPMENT DIRECTOR CT SCAN OF THE CHEST WITHOUT INTRAVENOUS CONTRAST High-resolution protocol was performed with inspiratory and expiratory images. HISTORY: Restrictive lung disease. DATE: 10/09/2014. COMPARISON: Chest radiographs, most recently 09/08/2014. FINDINGS: Lines/tubes: Left chest wall pacemaker has its lead in the right ventricle. ??Epicardial pacing wires are also seen. Lungs, Airways, and Pleura: The lungs are essentially clear, with the exception of minimal tree-in-bud opacities in the posterior segment of the right upper lobe (inspiratory images 122-140) and in the posterior basal segment of the right lower lobe (inspiratory images 206-225). There are scattered small areas of air trapping. ??There are no abnormal reticular opacities, bronchovascular thickening, bronchiectasis, or consolidation. ??Lung volumes are normal. Pleural spaces are clear. Heart and mediastinum: The thyroid gland is normal. 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 ??Heart is enlarged without pericardial effusion. No significant mediastinal, hilar or axillary lymphadenopathy is seen. The heart and pericardium are within normal limits. Abdomen: Limited views of the upper abdomen show no abnormality within the visualized liver, spleen, or kidneys. Soft tissue and bones: There has been prior median sternotomy. ??Bones and soft tissues are otherwise unremarkable. Procedure Note Carley Abarca MD - 10/09/2014 CT SCAN OF THE CHEST WITHOUT INTRAVENOUS CONTRAST High-resolution protocol was performed with inspiratory and expiratory images. HISTORY: Restrictive lung disease. DATE: 10/09/2014. COMPARISON: Chest radiographs, most recently 09/08/2014. FINDINGS: Lines/tubes: Left chest wall pacemaker has its lead in the right ventricle. Epicardial pacing wires are also seen. Lungs, Airways, and Pleura: The lungs are essentially clear, with the exception of minimal tree-in-bud opacities in the posterior segment of the right upper lobe (inspiratory images 122-140) and in the posterior basal segment of the right lower lobe (inspiratory images 206-225). There are scattered small areas of air trapping. There are no abnormal reticular opacities, bronchovascular thickening, bronchiectasis, or consolidation. Lung volumes are normal. Pleural spaces are clear. Heart and mediastinum: The thyroid gland is normal. 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 Heart is enlarged without pericardial effusion. No significant mediastinal, hilar or axillary lymphadenopathy is seen. The heart and pericardium are within normal limits. Abdomen: Limited views of the upper abdomen show no abnormality within the visualized liver, spleen, or kidneys. Soft tissue and bones: There has been prior median sternotomy. Bones and soft tissues are otherwise unremarkable. IMPRESSION No evidence of interstitial lung disease. Minimal tree-in-bud opacities and small areas of air trapping, likely reflecting mild small airways disease. Don Daniel MD CT ORDERABLES * AMB REQUEST FOR SUPPLY/EQUIP (09/16/2014) Only the most recent of2 resultswithin the time period is included. Lucho Casey MD GENERAL SUPPLY ORDER BRIAN * PULSE OXIMETRY NOCTURNAL STUDY (09/10/2014) Lucho Casey MD RESPIRATORY THERAPY ORDERABLES * IMMUNOGLOBULINS PANEL (09/08/2014 3:43 PM CDT) IgG Quantitative 735 700 - 1,600 mg/dL [facility] INSURANCE BILL IgA Quantitative 273 91 - 414 mg/dL [facility] INSURANCE BILL IgM Quantitative 100 40 - 230 mg/dL [facility] INSURANCE BILL Blood specimen (specimen) BLOOD SPECIMEN / Unknown 09/08/2014 3:43 PM CDT 09/08/2014 6:46 PM CDT Narrative Resulting Agency Comment [facility] [address] ??Replaced by [facility] [phone] Don Daniel MD LAB - CHEMISTRY KATIA SHER Performing Organization Address [facility] Co de Phone Number [facility] INSURANCE BILL * IGE BLOOD (09/08/2014 3:43 PM CDT) IgE 65 0 - 100 IU/mL [facility] INSURANCE BILL Blood specimen (specimen) BLOOD SPECIMEN / Unknown 09/08/2014 3:43 PM CDT 09/08/2014 6:46 PM CDT Narrative Resulting Agency Comment [place] [id number] ??Replaced by [facility] [phone] Don Daniel MD LAB - CHEMISTRY KATIA SHER [facility] INSURANCE BILL * FRACTIONAL EXHALED NITRIC OXIDE (07/30/2014) Provider Unknown RESPIRATORY THERAPY ORDERABLES * COMPLETE PFT (07/30/2014) Bebo Hansen MD RESPIRATORY THERAPY ORDERABLES Performing Organization Address City/[facility] Co de Phone Number [facility] RESULT SCAN * ALPHA-1 ANTITRYPSIN (AAT) MUTATION ANALYSIS (PO REF LAB) (07/29/2014) BLOOD SPECIMEN / Unknown Provider Unknown LAB - CHEMISTRY ORDE RABLES * MAMMOGRAPHY ORDER (05/25/2014) Anatomical Region Laterality Modality Mammography Provider Unknown MAMMO ORDERABLES * CREATININE BLOOD (EXTERNAL RESULT ENTRY) (05/16/2014 8:14 AM CDT) Only the most recent of2 resultswithin the time period is included. Creatinine (EXTERNAL RESULT) 1.22 mg/dl OTHER LAB Blood specimen (specimen) BLOOD SPECIMEN / Unknown 05/16/2014 8:14 AM CDT Narrative OTHER LAB - 05/16/2014 8:14 AM CDT The accuracy and reliability of the test results are authenticated by the outside CLIA certified lab, and not by the [facility] Laboratory Residential Property Tax Appraiser. ??The full result should be confirmed by review of the scanned report from the outside CLIA certified lab that performed the test before clinical decisions are rendered based on these results. ??Exercise caution when tracking results measured by different laboratories that have not been subject to cross validation studies. Historical Provider LAB - CHEMISTRY O RDERABLES Performing Organization Address City/[facility]/ZIP Co de Phone Number OTHER LAB * LDL CHOLESTEROL (EXTERNAL RESULT ENTRY) (05/16/2014 8:14 AM CDT) Only the most recent of2 resultswithin the time period is included. LDL Calculated (EXTERNAL RESULT) 70 mg/dl OTHER LAB Blood specimen (specimen) BLOOD SPECIMEN / Unknown 05/16/2014 8:14 AM CDT Narrative OTHER LAB - 05/16/2014 8:14 AM CDT The accuracy and reliability of the test results are authenticated by the outside CLIA certified lab, and not by the [facility] Residential Property Tax Appraiser. ??The full result should be confirmed by review of the scanned report from the outside CLIA certified lab that performed the test before clinical decisions are rendered based on these results. ??Exercise caution when tracking results measured by different laboratories that have not been subject to cross validation studies. Historical Provider LAB - CHEMISTRY Naeem BLEVINS Performing Organization Address [facility] de Phone Number OTHER LAB * (ABNORMAL) HEMOGLOBIN A1C (EXTERNAL RESULT ENTRY) (05/16/2014 8:14 AM CDT) Only the most recent of2 resultswithin the time period is included. Hemoglobin A1c (EXTERNAL RESULT) 7.4(H) % OTHER LAB Blood specimen (specimen) BLOOD SPECIMEN / Unknown 05/16/2014 8:14 AM CDT Narrative OTHER LAB - 05/16/2014 8:14 AM CDT The accuracy and reliability of the test results are authenticated by the outside CLIA certified lab, and not by the [facility] Residential Property Tax Appraiser. ??The full result should be confirmed by review of the scanned report from the outside CLIA certified lab that performed the test before clinical decisions are rendered based on these results. ??Exercise caution when tracking results measured by different laboratories that have not been subject to cross validation studies. Historical Provider LAB - CHEMISTRY Naeem BLEVINS Performing Organization Address [facility] de Phone Number OTHER LAB * PULMONARY FUNCTION (05/08/2014) Provider Unknown RESPIRATORY THERAPY ORDERABLES * (ABNORMAL) PT WHOLE BLOOD - POINT OF CARE (AMB) (10/22/2013) Only the most recent of5 resultswithin the time period is included. PT POCT 49.0 Seconds INR POCT 4.9(A) 0.9 - 1.2 QC1 yes QC2 yes Blood specimen (specimen) BLOOD SPECIMEN / Unknown Bebo Hansen MD LAB - POINT OF CARE ORDERABLES * IRON + TIBC PANEL (11/28/2012 11:10 AM RESEARCH AND DEVELOPMENT DIRECTOR) Only the most recent of4 resultswithin the time period is included. TIBC 410 250 - 450 ug/dL [facility] INSURANCE BILL UIBC 338 150 - 375 ug/dL [facility] INSURANCE BILL Iron 72 35 - 155 ug/dL [facility] INSURANCE BILL Iron Saturation 18 15 - 55 % [facility] INSURANCE BILL Blood specimen (specimen) BLOOD SPECIMEN / Unknown 11/28/2012 11:10 AM RESEARCH AND DEVELOPMENT DIRECTOR 11/28/2012 12:58 PM RESEARCH AND DEVELOPMENT DIRECTOR Narrative Resulting Agency Comment [address] ??Replaced by [facility] [phone] eBbo Hansen MD LAB - CHEMISTRY KATIA SHER [facility] INSURANCE BILL * FERRITIN (11/28/2012 11:10 AM RESEARCH AND DEVELOPMENT DIRECTOR) Only the most recent of4 resultswithin the time period is included. Ferritin 29 13 - 150 ng/mL [facility] INSURANCE BILL Blood specimen (specimen) BLOOD SPECIMEN / Unknown 11/28/2012 11:10 AM RESEARCH AND DEVELOPMENT DIRECTOR 11/28/2012 12:58 PM RESEARCH AND DEVELOPMENT DIRECTOR Narrative Resulting Agency Comment [place] [phone] [facility] ??Replaced by [facility] [phone] Bebo Hansen MD LAB - CHEMISTRY KATIA SHER [facility] INSURANCE BILL * METHYLMALONIC ACID BLOOD (07/23/2012 10:28 AM CDT) Methylmalonic Acid 171 73 - 376 nmol/L [facility] INSURANCE BILL Comment: The reference range for methylmalonic acid has been set at +3sd above the mean for healthy blood bank donors. In the clinical assessment of patients with megaloblastic anemias a cutoff of +3sd provides greater specificity in the diagnosis of the vitamin deficiency states, despite the sacrifice of some sensitivity. Blood specimen (specimen) BLOOD SPECIMEN / Unknown 07/23/2012 10:28 AM CDT 07/23/2012 12:37 PM CDT Narrative Resulting Agency Comment [facility] [address] ??[facility] [phone] Bebo Hansen MD LAB - CHEMISTRY KATIA SHER [facility] INSURANCE BILL * VITAMIN B12 FOLATE PANEL (07/18/2012 9:48 AM CDT) Only the most recent of2 resultswithin the time period is included. Vitamin B12 363 211 - 946 pg/mL [facility] INSURANCE BILL Folate >19.9 >3.0 ng/mL [facility] INSURANCE BILL Comment: A serum folate concentration of less than 3.1 ng/mL is considered to represent clinical deficiency. Blood specimen (specimen) BLOOD SPECIMEN / Unknown 07/18/2012 9:48 AM CDT 07/18/2012 1:04 PM CDT Narrative Resulting Agency Comment [facility] ??Replaced by [facility] [phone] Bebo Hansen MD LAB - CHEMISTRY KATIA SHER Performing Organization Address City/[facility] Co de Phone Number [facility] INSURANCE BILL * ENDOSCOPY, COLON, SCREENING (05/23/2012) Provider Unknown GI PROCEDURE ORDERAB LES * (ABNORMAL) DIGOXIN LEVEL (04/06/2012 8:50 PM CDT) Digoxin < 0.06(L) 0.8 - 2.0 ng/mL [facility] Blood specimen (specimen) BLOOD SPECIMEN / Unknown 04/06/2012 8:50 PM CDT 04/06/2012 9:00 PM CDT Crystal Villar MD LAB - CHEMISTRY KATIA SHER [facility] [address] [place] [address] * (ABNORMAL) URINALYSIS ROUTINE AUTO (08/30/2011 12:25 PM CDT) Only the most recent of2 resultswithin the time period is included. Specific [place] UA 1.023 1.005 - 1.030 [facility] INSURANCE BILL pH UA 6.5 5.0 - 7.5 [facility] INSURANCE BILL Color UA Yellow Yellow [facility] INSURANCE BILL Appearance Clear Clear [facility] INSURANCE BILL Leukocyte UA Negative Negative [facility] INSURANCE BILL Protein UA 1+(A) Negative/Tra ce [facility] INSURANCE BILL Glucose UA 1+(A) Negative [facility] INSURANCE BILL Glucose Reflex NOT NEEDED [facility] INSURANCE BILL Comment:Ancillary determined the test is not needed Ketone UA Negative Negative [facility] INSURANCE BILL Occult Blood Urine Negative Negative [facility] INSURANCE BILL Bilirubin UA Negative Negative [facility] INSURANCE BILL Urobilinogen 1.0 0.0 - 1.9 mg/dL [facility] INSURANCE BILL Nitrite UA Negative Negative [facility] INSURANCE BILL Microscopic Examination Urine See below: [facility] INSURANCE BILL Microscopic Examination Urine NOT NEEDED [facility] INSURANCE BILL Comment:Ancillary determined the test is not needed URINE / Unknown 08/30/2011 1 2:25 PM CDT 08/30/2011 6:16 PM CDT Narrative Resulting Agency Comment [facility] ??Replaced by [facility] [phone] Bebo Hansen MD LAB - URINALYSIS ORD ERABLES [facility] INSURANCE BILL * URINALYSIS MICROSCOPIC ONLY (08/30/2011 12:25 PM CDT) Only the most recent of3 resultswithin the time period is included. WBC UA 0-5 0 - 5 /hpf [facility] INSURANCE BILL RBC UA 0-3 0 - 3 /hpf [facility] INSURANCE BILL Epithelial Cells (non renal) 0-10 0 - 10 /hpf [facility] INSURANCE BILL Epithelial Cells (renal) NOT NEEDED [facility] INSURANCE BILL Comment:Ancillary determined the test is not needed Casts ua NOT NEEDED [facility] INSURANCE BILL Comment:Ancillary determined the test is not needed Casts UA NOT NEEDED [facility] INSURANCE BILL Comment:Ancillary determined the test is not needed Crystals UA NOT NEEDED [facility] INSURANCE BILL Comment:Ancillary determined the test is not needed Crystals UA NOT NEEDED [facility] INSURANCE BILL Comment:Ancillary determined the test is not needed Mucus UA Present Not Estab. [facility] INSURANCE BILL Bacteria UA Few None seen/Few [facility] INSURANCE BILL Yeast UA NOT NEEDED [facility] INSURANCE BILL Comment:Ancillary determined the test is not needed Trichomonas UA NOT NEEDED [facility] INSURANCE BILL Comment:Ancillary determined the test is not needed Comment Urine NOT NEEDED [facility] INSURANCE BILL Comment:Ancillary determined the test is not needed 08/30/2011 12:2 5 PM CDT 08/30/2011 6:16 PM CDT Narrative Resulting Agency Comment [facility] [address] [facility] ??Replaced by [facility] [phone] Bebo aHnsen MD LAB - URINALYSIS ORD ERABLES [facility] INSURANCE BILL * IVP (08/18/2010 10:30 AM CDT) Anatomical Region Laterality Modality Abdomen Radio Fluoroscop y 08/18/2010 11:0 8 AM CDT Narrative 08/18/2010 11:48 AM CDT IVP: CLINICAL INFORMATION: History of kidney stones with recent passed kidney stone. The patient is a currently taking Glucophage was instructed to withhold her Glucophage for 48 hours and repeat serum creatinine level. Initial erosion control specialist examination demonstrates normal psoas shadows and right renal contour. There is a questionable stone superimposing the left renal contour. A likely phlebolith is present within the left pelvis. Following intravenous contrast administration, there is prompt symmetric concentration and excretion of contrast. No evidence of mass or mass effect is present. The visualized upper calyces, fornices, and renal pelves are normal. The visualized bilateral ureters are normal. The visualized bladder is normal. There is no evidence of obstructive uropathy. Post void examination demonstrates little residual contrast. DIAGNOSIS: Grossly normal examination. Procedure Note Estrada Alcantara MD - 08/18/2010 IVP: CLINICAL INFORMATION: History of kidney stones with recent passed kidney stone. The patient is a currently taking Glucophage was instructed to withhold her Glucophage for 48 hours and repeat serum creatinine level. Initial erosion control specialist examination demonstrates normal psoas shadows and right renal contour. There is a questionable stone superimposing the left renal contour. A likely phlebolith is present within the left pelvis. Following intravenous contrast administration, there is prompt symmetric concentration and excretion of contrast. No evidence of mass or mass effect is present. The visualized upper calyces, fornices, and renal pelves are normal. The visualized bilateral ureters are normal. The visualized bladder is normal. There is no evidence of obstructive uropathy. Post void examination demonstrates little residual contrast. DIAGNOSIS: Grossly normal examination. Bebo Hansen MD FLUOROSCOPY ORDERABL ES * MAMMO SCREENING BILATERAL (03/01/2010) Anatomical Region Laterality Modality Breast Other Bebo Hansen MD MAMMO ORDERABLES * XR KNEE 4+ VW LEFT (02/22/2010 3:53 PM CDT) Anatomical Region Laterality Modality Lower Extremity Radiographic Saran ging 02/22/2010 3:59 PM CDT Narrative 02/22/2010 4:06 PM CDT Four view left knee CLINICAL INFORMATION: Pain. The texture and density of the osseous structures is normal. ??There is no fracture, subluxation or bone destruction. No joint effusion is present. ??The soft tissues appear grossly normal. DIAGNOSIS: Negative. Procedure Note Estrada Alcantara MD - 02/22/2010 Four view left knee CLINICAL INFORMATION: Pain. The texture and density of the osseous structures is normal. There is no fracture, subluxation or bone destruction. No joint effusion is present. The soft tissues appear grossly normal. DIAGNOSIS: Negative. Leonard Shea MD DIAGNOSTIC IMAGING O RDERABLES * CT HEARTSCAN CALCIUM SCORING (05/25/2009) Anatomical Region Laterality Modality Other Nikolay Cody III, MD CT ORDERABLES * (ABNORMAL) CBC W AUTO DIFFERENTIAL W PLATELETS (03/12/2009 8:23 AM CDT) White Blood Cell Count 8.2 3.8 - 10.8 Thousand/u L [facility] RBC 3.62(L) 3.80 - 5.10 Million/uL [facility] Hemoglobin 11.8 11.7 - 15.5 g/dL [facility] Hematocrit 35.0 35.0 - 45.0 % [facility] MCV 96.5 80.0 - 100.0 fL [facility] MCH 32.6 27.0 - 33.0 pg [facility] MCHC 33.8 32.0 - 36.0 g/dL [facility] RDW 16.5(H) 11.0 - 15.0 % [facility] Platelet Count 250 140 - 400 Thousand/u L [facility] Comment: Test Performed at: [facility] [place] [id number] [place] [address] ??[phone] KELLY MELENDEZ MD 03/12/2009 8:23 AM CDT 03/12/2009 9:26 PM CDT Bebo Hansen MD LAB - HEMATOLOGY ORD ERABLES [facility] [address] [place] [address] * DEXA BONE DENSITY 2 SITES (12/16/2008) Anatomical Region Laterality Modality Other Bebo Hansen MD DEXA ORDERABLES * TELMA-1 ANTIBODY (09/17/2008 11:27 AM CDT) Telma-1 Antibody 12 0 - 99 AU/mL [facility] INSURANCE BILL Comment: ? Negative ?<100 ? Equivocal ??100 - 120 ? Positive ?>120 09/17/2008 11:2 7 AM CDT 09/17/2008 9:03 PM CDT Narrative Resulting Agency Comment [facility] [place] [address] [facility] ??Replaced by [facility] [phone] Bebo Hansen MD LAB - CHEMISTRY KATIA SHER [facility] INSURANCE BILL * ALDOLASE (09/17/2008 11:27 AM CDT) Aldolase 3.4 1.2 - 7.6 U/L [facility] INSURANCE BILL 09/17/2008 11:2 7 AM CDT 09/17/2008 9:03 PM CDT Narrative Resulting Agency Comment [facility] [place] [id number] ??Replaced by [facility] [phone] Bebo Hansen MD LAB - CHEMISTRY KATIA SHER Performing Organization Address City/[facility]/ZIP Co de Phone Number [facility] INSURANCE BILL * URINALYSIS - POINT OF CARE (AMB) [facility] (11/26/1998 12:00 AM RESEARCH AND DEVELOPMENT DIRECTOR) Glucose UA [facility] Bilirubin UA POCT [facility] Ketones UA POCT [facility] Specific [place] UA [facility] Blood Urine POCT [facility] pH UA [facility] Protein UA + [facility] Urobilinogen UA [facility] Nitrite UA [facility] WBC UA [facility] Urine specimen (specimen) 11/26/1998 Nicole Quiles MD LAB - POINT OF CARE ORDERABLES Performing Organization Address City/[facility]/ZIP Co de Phone Number [facility] Care Teams Pole Setter Relationship Specialty Start Date End Date Juana Mesa MD [address] [place] [phone] PCP - General 04/11/21 Juana Mesa MD [address] [place] [phone] 04/11/21 Juana Mesa MD [address] [place] [address] 07/01/20 Juana Mesa MD [facility] [place] [address] 12/22/19 Juana Mesa MD [address] [place] [address] 07/21/19 Juana Mesa MD [facility] [address] [place] [address] 07/12/18 Juana Mesa MD [address] [place] [address] Family Medicine 05/03/18 Ra Jara MD [address] [place] [phone] Endocrinology 04/21/14 Dada Lou MD [address] [place] [phone] Internal Medicine 11/09/15 Paco Holden MD [address] [place] [phone] Neurology 05/11/16 Paramjit Escobar MD [address] [place] [phone] Internal Medicine 11/23/16
--- OUTSIDE RECORDS SUMMARY | 2024-12-22 11:46 | XMS_ITS | Referral Summary ---
Author Organization [facility] Address [address] [facility] [place] [address] Care Team Providers Care Shipyard Laborer Name Role Phone Juana Mesa MD Primary Care Provider [phone] Juana Mesa MD Unavailable Juana Mesa MD Unavailable Juana Mesa MD Unavailable Juana Mesa MD Unavailable Juana Mesa MD Unavailable Juana Mesa MD Unavailable Ra Jara MD Unavailable Dada Lou MD Unavailable Unavailable Paco Holden MD Unavailable [phone] Paramjit Escobar MD Unavailable [phone] Source Comments [facility],non-owned Affiliates and Associated Physician Practices is amultiple site organization consisting of ambulatory clinics and hospital sitesin [place], [place], [place] and [place]. This disclosure is being madepursuant to the Care Everywhere program and may not contain all information available regarding this patient. Last updated 18.[facility] Allergies Active Allergy Reactions Criticality Noted [...] Overview (09/20/2020): Last Assessment & Plan: D/w customer care representative and hospitalist and sent for direct admission to the hospital Aortic stenosis due to bicuspid aortic valve 01/2019 Vitamin D deficiency 10/31/2018 Overview (09/20/2020): Last Assessment & Plan: Stable Cont vitamin d supplement Anticoagulation monitoring, INR range 2.5-3.5 History of mitral valve replacement with mechani cindy valve 03/11/2018 Assessment & Plan (12/30/2020 12:41 PM HORSESHOER): St. Loc' mechanical valve. Stable, continue warfarin. [...] 2016 Assessment & Plan (12/30/2020 12:33 PM HORSESHOER): Mild and asymptomatic on recent Exercise Bike ECHO: Medical managment for now, follow up with Dr. Rouse in 6 months. Assessment & Plan (10/14/2019 1:32 PM HORSESHOER): Mild and asymptomatic on recent Exercise Bike [...] discomfort. Assessment & Plan (12/30/2020 12:24 PM HORSESHOER): Stable on warfarin and BB, asymptomatic. Assessment & Plan (08/05/2020 9:20 AM CDT): No symptoms or concern regarding uncontrolled rate, remains anticoagulated secondary to her mechanical aortic valve. Assessment & Plan (10/14/2019 1:25 PM HORSESHOER): Stable on warfarin and BB> Long-term insulin use 11/04/2014 Paresis 05/22/2014 COPD (chronic obstructive pulmonary disease) Overview (05/11/2016): Doing well with Spiriva and off Qvar. Not needing albuterol. History of [place] (myocardial infarction) 04/21/2014 Overview (04/21/2014): QUESTIONABLE, await records. Demand ischemia? No blockage per the patient. Pacemaker was placed for bradycardia. ??? 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 Last EF recovered noted to be 60% in June 2020. No decline in functional status, continues to be [place] Heart Association class 1-2. Remains on carvedilol 25 mg twice daily, losartan 25 mg daily, spironolactone 12.5 mg daily and her loop diuretic. No changes in therapy at this time. Most recent lab work in Care Everywhere is stable. Assessment & Plan (08/05/2020 9:19 AM CDT): No decline in functional status, presently [place] Heart Association class 1-2. Remains on carvedilol 25 mg twice daily, losartan 25 mg daily, spironolactone 12.5 mg daily and her loop diuretic. 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 [facility] in April 2019 showed Mild nonobstructive CAD. [...] therapy. Assessment & Plan (10/14/2019 1:24 PM HORSESHOER): Stable, denies chest pain. [facility] in April showed Mild nonobstructive CAD. Continue [...] GI bleed hospital stay 10/27/16 - 11/04/16, [facility] Presence of cardiac pacemaker 10/05/2010 Overview (02/02/2017): Overview: VVI Medtronic with recurrent interchangeable high and low impedance (lead was placed in 2005). RV lead replacement 12-26-2016 Replaced 2015 Assessment & Plan (10/14/2019 1:24 PM HORSESHOER): Device function wnl, no changes. Family history [...] [facility] office follows tj. 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 On warfarin. 11/05/2014 Assessment & Plan (10/14/2019 1:25 PM HORSESHOER): St. Loc' mechanical valve. Stable, continue warfarin. Obstructive sleep apnea 04/06/2009 Overview (09/20/2020): [facility] Overview: Overview: On CPAP, 19 cm water. Compliant every night. Insomnia 08/15/2005 Actinic keratosis 05/16/2005 Malignant neoplasm of skin of parts of face 04/27 Alopecia 05/16/2005 Posterior vitreous detachment, both eyes Cataracts, bilateral Overview (02/17/2015): Sees Mic, Dr. Jaydon Rcih? Resolved Problems Problem Noted Date Diagnosed Date Resolved Date Cough 07/05/2020 10/18/2020 Urinary tract infection 12/28/201601/25 Leg ulcer 11/16/2016 11/25/2016 Overview (11/16/2016): Office Visit 01/30/14 Lower GI bleed 10/27/2016 11/04/2016 Overview (11/12/2016): Hospital stay [facility]. Followed hot snare polypectomy by Dr. Lou [...] 03/17/2013,07/20/1999, 9 TDAP (7yrs+) 09/04/2011 TETANUS 03/17/2013 Social History Tobacco Use Types Packs/Day [...] Mass Index 30.95 02/06/2022 2:59 PM CDT Functional Status Functional Status Response Date of [...] person have difficulty concentrating/remembering/making decisions? No 07/07/2016 Plan of Treatment Not on file Goals Goal Patient Goal Type Associated Problems Recent Progress Patient-Stated? Author Blood Pressure < 140/90 Blood Pressure 116/80(2021 2:59 PM CDT) No Lang, Marnice A Reduce cholesterol intake. 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 (HCC) HEMOGLOBIN A1C Routine 01/26/2017 6:22 AM HORSESHOER MICROALB/CREAT RATIO URINE RANDOM PANEL Routine 07/24/2016 [...] 7 - 26 mg/dL 05/09/2019 8:06 AM CDT [facility] Creatinine 1.3(H) 0.6 - [...] 05/09/2019 7:23 AM CDT 05/09/2019 7:38 AM [facility] Néstor Perry MD LAB - CHEMISTRY ORD ERABLES [facility] [address] [place] [address] * (ABNORMAL) HEMOGLOBIN A1C (01/26/2017 6:22 AM HORSESHOER) Hemoglobin A1c 6.4(H) 4.4 - 6.3 % [facility] Estimated Average Glucose 137 mg/dL [facility] Comment: HbA1c Interpretation: Treatment target values recommended by ADA and other clinical organizations should be used to evaluate metabolic control in patients. Treatment Target Values: Normal : < 5.7% Pre-diabetes: 5.7-6.4% Diabetes: Equal to or greater than 6.5% Reference: [place] Diabetes Association Standards of Care in Diabetes -2014 In patients 70 years and older consider HbA1c target range of 7.0-7.5% Reference: ??Diabetes Mellitus in Older People: Position Statement on behalf of the International Association of Gerontology and Geriatrics (IAGG), the Diabetes Working Alliance Party for Older People (EDWPOP), and the International Task Force of Experts in Diabetes. ??Juan Welsh et al. J [place] Medical Directors Association. 2012 Test results diagnostic [...] BLOOD SPECIMEN / Unknown 01/26/2017 6:22 AM HORSESHOER 01/26/2017 6:25 AM HORSESHOER Telma Jansen MD LAB - CHEMISTRY KATIA SHER [facility] Organization Address City/State/ZIP Co de Phone Number [address] [phone] * (ABNORMAL) MICROALB/CREAT RATIO URINE RANDOM PANEL (07/24/2016 7:53 AM CDT) Creatinine Urine 73 20 - 320 mg/dL [facility] Comment: Test Performed at: [employer] [place], [place] ??[address] RYAN ROJAS DO,MPH Microalbumin Urine 2.8 mg/dL [facility] Comment: Reference Range Not established Test Performed at: [facility] [address] [place], [place] ??[address] RYAN ROJAS DO,MPH Microalbumin/Creat inine Ratio 38(H) [...] LAB - URINE CHEMISTR Y ORDERABLES [facility] [address] [place] [address] * DIABETES EYE EXAM (03/13/2016) Scanned Document [...] 9:32 PM 07/08/2016 2:29 AM Care Teams Shipyard Laborer Relationship Specialty Start Date End Date Juana Mesa MD [address] [place] [phone] PCP - General 04/11/21 Juana Mesa MD [address] [place] [address] 04/11/21 Juana Mesa MD [address] [place] [address] 07/01/20 Juana Mesa MD [address] [place] [address] 12/22/19 Juana Mesa MD [address] [place] [address] 07/21/19 Juana Mesa MD [address] [place] [phone] 07/12/18 Juana Mesa MD [address] [place] [address] Family Medicine 05/03/18 Ra Jara MD [address] [place] [address] Endocrinology 04/21/14 Dada Lou MD [address] [place] [address] Internal Medicine 11/09/15 Paco Holden MD [address] [place] [address] Neurology 05/11/16 Paramjit Escobar MD [address] [place] [phone] Internal Medicine 11/23/16
[2024-12-22 11:47] LABS: Anisocytosis 1+; Macrocytosis 1+ (NORMAL); Ovalocytes 1+; Platelet Estimate Decreased (Adequate)
[2024-12-22 11:48] LABS: Burr Cells 1+; Schistocytes None Seen
[2024-12-22 11:53] LABS: Add Urine Microscopic? YES; Appearance Urine Clear (Clear); Bacteria Urine None Seen /hpf; Bilirubin Urine Negative (Negative); Blood Urine Negative (Negative); Color Urine Yellow (Yellow); Glucose Urine UA Negative (Negative); Ketones Urine Negative (Negative); Leukocyte Esterase Ur Negative LEU/UL (Negative); Need Manual Microscopic Reviewed; Nitrate Urine Negative (Negative); Protein Urine 3+ mg/dL (Negative); RBC Urine 0-2 /hpf (0-2); Specific Grav Ur 1.018 (1.001-1.035); Squamous Epithelial Cell Urine None Seen /hpf (Few); WBC Urine 0-5 /hpf (0-3)
[2024-12-22 11:56] LABS: INR 4.3; Prothrombin Time 42.1 Seconds (11.1-14.7)
[2024-12-22 11:57] LABS: Partial Thromboplastin Time 44.9 Seconds (22.3-36.8)
[2024-12-22 11:58] LABS: Magnesium 2.2 mg/dL (1.6-2.3)
[2024-12-22 12:09] LABS: NT Pro B Type Natriuretic Pept 4590 pg/mL (19.9-100); Troponin I 0.034 ng/mL (0.000-0.034)
[2024-12-22 12:28] LABS: Influenza A QL RT-PCR Positive (Negative); Influenza B QL RT-PCR Negative (Negative); RSV RNA, RT-PCR Negative (Negative); SARS-CoV-2 RNA PCR Negative (Negative)
[2024-12-22] MEDS: SODIUM CHLORIDE 0.9% IV 1,000 ML 999 ML IV CONT (13:23)
--- NOTE | 2024-12-22 13:34 | PC.NURSE ---
[facility] called for update on pt. Spoke with Paris
--- NOTE | 2024-12-22 16:44 | PC.NURSE ---
Report called to [facility], spoke with Bala who states they do not have transportation at this time.
== END 2024-12-22 18:13 ==
PROVIDERS: Emergency Provider Registered Nurse
DX: J10.1 Influenza due to other identified influenza virus with other respiratory manifestations (principal); E86.0 Dehydration; I50.9 Heart failure, unspecified; J44.9 Chronic obstructive pulmonary disease, unspecified; Z79.01 Long term (current) use of anticoagulants; E53.8 Deficiency of other specified B group vitamins; N18.30 Chronic kidney disease, stage 3 unspecified; I13.0 Hypertensive heart and chronic kidney disease with heart failure and stage 1 through stage 4 chronic kidney disease, or unspecified chronic kidney disease; G47.33 Obstructive sleep apnea (adult) (pediatric); M81.0 Age-related osteoporosis without current pathological fracture; Z99.89 Dependence on other enabling machines and devices; E11.22 Type 2 diabetes mellitus with diabetic chronic kidney disease; Z87.891 Personal history of nicotine dependence; Z20.822 Contact with and (suspected) exposure to COVID-19
CPT/HCPCS: 36415; 71045; 80053; 81001; 83735; 83880; 84484; 85025; 85610; 85730; 87637; 93005; 94640; 96360; 99284; J7030

== ENCOUNTER 2025-01-21 11:18 | Inpatient (IN) | payer MEDICARE, SELFPAY ==
[2025-01-20 14:48] VITALS: BMI 32.6
[2025-01-21] VITALS (12 sets, daily range): BP systolic 152–176; BP diastolic 62–98; PULSE 60–65; RESP 16–23; TEMP 36.2–36.8; O2SAT 95–100; BMI 30.2
--- OUTSIDE RECORDS SUMMARY | 2025-01-21 00:06 | XMS_ITS | Encounter Summary ---
Author Organization [facility] Address [address] [facility] [place] [address] Care Team Providers Care Conservation Engineer Name Role Phone Juana Mesa MD Primary Care Provider [phone] Juana Mesa MD Unavailable Juana Mesa MD Unavailable Juana Mesa MD Unavailable Juana Mesa MD Unavailable Juana Mesa MD Unavailable Juana Mesa MD Unavailable Ra Jara MD Unavailable Dada Lou MD Unavailable Unavailable Paco Holden MD Unavailable [phone] Paramjit Escobar MD Unavailable [phone] Encounter Details Date Type Department Care Team (Late st Contact Info) Description 03/24/2024 Lab Requisition [facility] - DermPath Lab [address] [facility], [place] [phone] Vashti Milan, [address] [facility] [address] [place] [address] Social History Tobacco Use Types Packs/Day Years [...] 7.0 Result Component 6.4( 7 6:22 AM LAB SCIENTIST) No Lang, Marnice A documented as of this encounter Procedures Procedure Name Priority Date/Time Associated Diagnosis Comments DERMATOPATHOLOGY Routine 03/24/2024 10:1 0 AM CDT documented in this encounter Results * DERMATOPATHOLOGY (03/24/2024 10:10 AM CDT) Case Report Dermatopathology Report Case: [id number] Authorizing Provider: Vashti Milan DO Collected: 03/24/2024 10:10 AM Ordering Location: [facility] - Received: 03/25/2024 07:13 AM DermPath Lab Pathologist: Meredith Burks MD Specimens: A) - Skin, left religious B) - Skin, right chest 5:05 PM CDT DERMATOPATHOLOGY LABORATORY Final Diagnosis Specimen A. SKIN, left religious: BENIGN VERRUCOUS KERATOSIS (L82.1) Specimen B. SKIN, right chest: HYPERPLASTIC (HYPERTROPHIC) ACTINIC KERATOSIS (L57.0) 5:05 PM CDT DERMATOPATHOLOGY LABORATORY Clinical History A-B: r/o NMSC 5:05 PM CDT DERMATOPATHOLOGY LABORATORY Gross Description Specimen A: Received is one formalin filled container labeled with the patient's name and designated left religious. The specimen consists of a shave biopsy measuring 7x5x3 mm. Jar 0. Specimen B: Received is one formalin filled container labeled with the patient's name and designated right chest. The specimen consists of a shave biopsy measuring 7x4x1 mm. Jar 0. 5:05 PM CDT DERMATOPATHOLOGY LABORATORY Microscopic Description Specimen A. SKIN, left religious: Sections show hyperkeratosis, papillomatosis, hypergranulosis, and acanthosis. These histological findings can be seen in a verruca vulgaris or a seborrheic keratosis. Specimen B. SKIN, right chest: There is hyperkeratosis alternating with parakeratosis. There is epidermal hyperplasia with disorderly maturation of keratinocytes with nuclear pleomorphism confined to the lower half of the epidermis. 5:05 PM CDT DERMATOPATHOLOGY LABORATORY Disclaimer An external and internal positive and negative controls are appropriate for the histochemical, immunohistochemical and immunofluorescence stain(s) in this case (if any), except where stated explicitly. The performance characteristics of the stain(s) cited in this report were developed and its performance characteristic determined by the Dermatopathology Laboratory at [facility], directed by Dr. Ines Maldonado. These tests need not be, and therefore are not, approved by the [place] Food and Drug Administration. The tests are used for clinical purposes. Billing Codes Specimen Charges Stain Charges 99537 13517 1 1 4 5:05 PM CDT DERMATOPATHOLOGY LABORATORY Embedded Images 4 5:05 PM CDT DERMATOPATHOLOGY LABORATORY Pathology/Cytology TISSUE SPECIMEN FROM SKIN / Unknown 03/24/2024 10:10 AM CDT 03/25/2024 7:13 AM CDT Miscellaneous samples (specimen) TISSUE SPECIMEN FROM SKIN / Unknown 03/24/2024 10:10 AM CDT 03/25/2024 7:13 AM CDT Vashti Milan DO LAB - PATHOLOGY/C YTOLOGY ORDERABLES Performing Organization Address City/State/RUST Co de Phone Number DERMATOPATHOLOGY LABORATORY [facility] - Department of Dermatology [facility] Medicine [address] [place] [address], [address] [phone] documented in this encounter Visit Diagnoses Not on filedocumented in this encounter Care Teams Conservation Engineer Relationship Specialty Start Date End Date Juana Mesa MD [address] [facility] [place] [address] PCP - General 04/11/21 Juana Mesa MD [address] [place] [address] 04/11/21 Juana Mesa MD [address] [facility] [place] [address] 07/01/20 Juana Mesa MD [address] [place] [address] 12/22/[address] [facility] [address] [place] [address] [place] [phone] 07/21/19 Juana Mesa MD [address] [place] [address] Dr [place] [address] [place] [phone] 07/12/[address] [facility] [address] [place] [address] [place] [phone] Family Medicine 05/03/18 Ra Jara MD [address] [place], [place] [phone] Endocrinology 04/21/14 Dada Lou MD [address] [place] [phone] Internal Medicine 11/09/15 Paco Holden MD [address] [place] [phone] Neurology 05/11/16 Paramjit Escobar MD [address] [place] [phone] Internal Medicine 11/23/16 documented as of this encounter
--- OUTSIDE RECORDS SUMMARY | 2025-01-21 00:06 | XMS_ITS | Encounter Summary ---
Author Organization [facility] Address [address] [facility] [place] [address] Care Team Providers Care Bag Making Machine Operator Name Role Phone Juana Mesa [...] MD Unavailable Unavailable Paco Holden MD Unavailable [phone] Paramjit Escobar MD Unavailable [phone] Reason for Visit * Reason Onset Date Comments MEDICATION REFILL 12/31/2020 Encounter Details Date Type Department Care Team (Late st Contact Info) Description 12/31/2020 Refill [facility] [address] [facility] [address] [place] [address] Mychart, Generic Provider MEDICATION REFILL Social History [...] 7.0 Result Component 6.4( 7 6:22 AM METHODS ENGINEER) No Lang, Marnice A documented as of this encounter Visit Diagnoses Not on filedocumented in this encounter Care Teams Bag Making Machine Operator Relationship Specialty Start Date End Date Juana Mesa MD [address] [facility] [place] [address] PCP - General 07/01/20 04/10/21 Juana Mesa MD [address] [facility] [place] [address] PCP - General 04/11/21 Juana Mesa MD [address] [facility] [address] [place] [phone] 04/11/21 Juana Mesa MD [address] [facility] [address] [place] [phone] 07/01/20 Juana Mesa MD [address] [facility] [place] [phone] 12/22/19 Juana Mesa MD [address] [facility] [place] [address] 07/21/19 Juana Mesa MD [address] [facility] [place] [address] 07/12/18 Juana Mesa MD [address] [facility] [place] [address] Family Medicine 05/03/18 Ra Jara MD [address] [place] [phone] Endocrinology 04/21/14 Dada Lou MD [facility] [place] [address] Internal Medicine 11/09/15 Paco Holden MD [facility] [place] [phone] Neurology 05/11/16 Paramjit Escobar MD [facility] [place] [address] Internal Medicine 11/23/16 documented as of this encounter
--- OUTSIDE RECORDS SUMMARY | 2025-01-21 00:06 | XMS_ITS | Continuity of Care Document ---
Author Name Auto Generated, Auto Generated Organization [employer] [employer] Summary Purpose Consult/Referral Allergies, Adverse Reactions, Alerts No Known Allergies Medications No Known Medications Conditions/Problems No Known Problems Procedures No Known Procedures
--- OUTSIDE RECORDS SUMMARY | 2025-01-21 00:07 | XMS_ITS | Encounter Summary ---
Author Organization [facility] Address [address] [place] [address] Care Team Providers Care Clothes Marker Name Role Phone Meredith Aburto MANAGER OF WAREHOUSE Primary Care Provi arlette No, Physician Primary Care Provider [phone] Encounter Details Date Type Department Care Team (Late st Contact Info) Description 05/01/2024 Orders Only [facility] Health Information Management [address] [place] [address] Scanning, Provider Social History Tobacco Use Types Packs/Day Years Used Date Smoking Tobacco: Former Cigarettes 3 51.2 S tarted: 1974 Smokeless Tobacco: Never Alcohol [...] often do you attend chur ch or orthodox services? 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
--- OUTSIDE RECORDS SUMMARY | 2025-01-21 00:07 | XMS_ITS ---
Author Organization [facility] Address [address] [place], [place] [id number] Care Team Providers Care Tube Tester Name Role Phone LINDA PACHECO Unavailable [phone] Stone, Crystal Unavailable Unavailable Allergies Allergen (clinical [...] hydrochloride 1000 MG Oral Tablet *Reorder from [facility] for eRx and Interaction Alerts* 2 Active colchicine 0.6 MG Oral Tablet [Colcrys] ORAL colchicine 0.6 MG Oral Tablet [Colcrys]Original Medicationcolchicine 0.6 MG Oral Tablet [Colcrys] *Reorder from [facility] for eRx and Interaction Alerts* 4 Active digoxin 0.125 MG Oral Tablet ORAL digoxin 0.125 MG Oral TabletOriginal Medicationdigoxin 0.125 MG Oral Tablet *Reorder from [facility] for eRx and Interaction Alerts* 2 Active insulin aspart, human 100 UNT/ML Injectable Solution [NovoLog] insulin aspart, human 100 UNT/ML Injectable Solution [NovoLog]Original Medicationinsulin aspart, human 100 UNT/ML Injectable Solution [NovoLog] *Reorder from [facility] for eRx and Interaction Alerts* 2 Active isopropyl alcohol 0.7 ML/ML Medicated Pad isopropyl alcohol 0.7 ML/ML Medicated PadOriginal Medicationisopropyl alcohol 0.7 ML/ML Medicated Pad *Reorder from [facility] for eRx and Interaction Alerts* 2 05/29/20 29 Active Warfarin Sodium 10 MG Oral Tablet ORAL warfarin sodium 10 MG Oral TabletOriginal Medicationwarfarin sodium 10 MG Oral Tablet *Reorder from [facility] for eRx and Interaction Alerts* 2 Active Lisinopril 2.5 MG Oral Tablet ORAL lisinopril 2.5 MG Oral TabletOriginal Medicationlisinopril 2.5 MG Oral Tablet *Reorder from [facility] for eRx and Interaction Alerts* 2 Active Carvedilol 12.5 MG Oral Tablet ORAL carvedilol 12.5 MG Oral TabletOriginal Medicationcarvedilol 12.5 MG Oral Tablet *Reorder from [facility] for eRx and Interaction Alerts* 2 Active ciprofloxacin 500 MG Oral Tablet [Cipro] ORAL ciprofloxacin 500 MG Oral Tablet [Cipro]Original Medicationciprofloxacin 500 MG Oral Tablet [Cipro] *Reorder from [facility] for eRx and Interaction Alerts* 7 Active clobetasol propionate 0.0005 MG/MG Topical Ointment CUTANEOUS clobetasol propionate 0.0005 MG/MG Topical OintmentOriginal Medicationclobetasol propionate 0.0005 MG/MG Topical Ointment *Reorder from [facility] for eRx and Interaction Alerts* 3 Active Furosemide 40 MG Oral Tablet ORAL furosemide 40 MG Oral TabletOriginal Medicationfurosemide 40 MG Oral Tablet *Reorder from [facility] for eRx and Interaction Alerts* 2 Active Vital Signs Height 66.00 in 06/09/2024 Weight 206 lbs 06/09/2024 BMI 33.25 kg/m2 06/09/2024 Height-cm 167.64 cm 06/09/2024 Weight-kg 93.44 kg 06/09/2024 Encounters Encounter Location Date Provider Diagnosis [facility] [address] [place] [phone] 06/09/2024 LINDA PACHECO Tinea unguium B35.1 ; Pain in right toe(s) M79.674 ; Pain in left toe(s) M79.675 ; Atherosclerosis of [place] arteries of extremities with intermittent claudication, bilateral [...] toe(s) (ICD-10 - M79.675) 06/09/2024 Atherosclerosis of [place] arteries of extremities with intermittent claudication, bilateral [...] risk foot care, sooner if problems arise Progress Notes * MAI MCCULLOUGH KDOB:[birth year] (79 yo F)Acc No.[id number]:06/09/2024 Patient: MAI VILLAVICENCIO Provider: Gabino Pacheco DPM :1945 A ge:79 Y S ex:Female Date:06/09/2024 Address:[address] [place], [place] [id number] Subjective: * Chief Complaints: * 1 . Patient presents with painful toenails of both feet. They cause pain with shoes and ambulation. The onset was gradual. The patient has diabetes mellitus. * HPI: H PI: General care P miguelangel presents to the office for diabetic foot care. Patient states that their nails are thickened, elongated and painful. Patient states that it is aggravated by shoe gear. Onset is gradual., Patient is taking prescription blood thinners., Date last seen by Dr. Prieto was April 2024., Blair CAMACHO. * Medical History: * Family History: F ather: PRN - Father: . M other: PRN - Mother: . B rother: SIB - Brother: . S ister: SIB - Sister: . * Social History: M igrated Social History: M igrated Social History: Alcohol intake : , Smoking Status : Former tobacco user , History of tobacco use :. * Medications: T aking Furosemide 40 MG Oral Tablet ORAL , Notes to Pharmacist: furosemide 40 MG Oral TabletOriginal Medicationfurosemide 40 MG Oral Tablet *[facility]*, Taking Warfarin Sodium 10 MG Oral Tablet ORAL , Notes to Pharmacist: warfarin sodium 10 MG Oral TabletOriginal Medicationwarfarin sodium 10 MG Oral Tablet *[facility]*, Taking Lisinopril 2.5 MG Oral Tablet ORAL , Notes to Pharmacist: lisinopril 2.5 MG Oral TabletOriginal Medicationlisinopril 2.5 MG Oral Tablet *[facility]*, Taking Carvedilol 12.5 MG Oral Tablet ORAL , Notes to Pharmacist: carvedilol 12.5 MG Oral TabletOriginal Medicationcarvedilol 12.5 MG Oral Tablet *[facility]*, Taking ciprofloxacin 500 MG Oral Tablet [Cipro] ORAL , Notes to Pharmacist: ciprofloxacin 500 MG Oral Tablet [Cipro]Original Medicationciprofloxacin 500 MG Oral Tablet [Cipro] *Reorder from [facility] for eRx and Interaction Alerts*, Taking clobetasol propionate 0.0005 MG/MG Topical Ointment CUTANEOUS , Notes to Pharmacist: clobetasol propionate 0.0005 MG/MG Topical OintmentOriginal Medicationclobetasol propionate 0.0005 MG/MG Topical Ointment *Reorder from [facility] for eRx and Interaction Alerts*, Taking colchicine 0.6 MG Oral Tablet [Colcrys] ORAL , Notes to Pharmacist: colchicine 0.6 MG Oral Tablet [Colcrys]Original Medicationcolchicine 0.6 MG Oral Tablet [Colcrys] *Reorder from [facility] for eRx and Interaction Alerts*, Taking digoxin 0.125 MG Oral Tablet ORAL , Notes to Pharmacist: digoxin 0.125 MG Oral TabletOriginal Medicationdigoxin 0.125 MG Oral Tablet *Reorder from [facility] for eRx and Interaction Alerts*, Taking insulin aspart, human 100 UNT/ML Injectable Solution [NovoLog] , Notes to Pharmacist: insulin aspart, human 100 UNT/ML Injectable Solution [NovoLog]Original Medicationinsulin aspart, human 100 UNT/ML Injectable Solution [NovoLog] *Reorder from [facility] for eRx and Interaction Alerts*, Taking isopropyl alcohol 0.7 ML/ML Medicated Pad , stop date 05/29/2029, Notes to Pharmacist: isopropyl alcohol 0.7 ML/ML Medicated PadOriginal Medicationisopropyl alcohol 0.7 ML/ML Medicated Pad *Reorder from [facility] for eRx and Interaction Alerts*, Taking metformin hydrochloride 1000 MG Oral Tablet ORAL , Notes to Pharmacist: metformin hydrochloride 1000 MG Oral TabletOriginal Medicationmetformin hydrochloride 1000 MG Oral Tablet *Reorder from [facility] for eRx and Interaction Alerts* * Allergies: C odeine: Allergy - Onset Date 11/06/2012. Objective: * Vitals: W t: 206 lbs, Wt-k.44 kg, Ht: 66.00 in, Ht-cm: 167.64 cm, BMI: 33.25 Index, Body Surface Area: 2.08. * Examination: C onstitutional: Constitutional T he patient is awake, alert, well developed, well groomed and well nourished. D ermatologic: Skin findings: S kin is thin, atrophic and lacking pedal hair. Nail pathology: N ails 1-5 bilateral are elongated, thick, discolored, and dystrophic with subungual debris. They are painful to palpation. ? V ascular: Dorsalis pedis pulse: 0 /4, bilateral. Posterior tibial pulse: 1 /4, bilaterally. Capillary refill: g reater than 3 seconds. Edema: N o edema, bilateral. N eurologic: Gross sensation G ross sensation is intact to light touch.? M usculoskeletal: Muscle Strength M uscle strength is 5/5 in regards to dorsiflexion, plantarflexion, inversion, and eversion in bilateral lower extremities. ? Assessment: * Assessment: 1. T inea unguium - B35.1 (Primary) 2 . P ain in right toe(s) - M79.674 3 . P ain in left toe(s) - M79.675 4 . A therosclerosis of [place] arteries of extremities with intermittent claudication, bilateral legs - I70.213 5 . 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 The patient was instructed to check his feet daily to report any problems or signs of infection immediately. The patient was provided written information on Diabetic Foot Care as well as the Amputation Prevention Guide. * Procedure Codes: 1 1721 DEBRIDE NAIL, 6 OR MORE, Modifiers: Q8 * Follow Up: 1 0-12 Weeks (Reason: At risk foot care, sooner if problems arise) * Billing Information: * Visit Code: * Procedure Codes: 99227 DEBRIDE NAIL, 6 OR MORE. Modifiers: Q8 * Sign off status: Completed true * Provider: Gabino Pacheco DPM Date: 0 06/09/2024 Generated for Mame Simon/Karissa on: 0 01/21/2025 12:06 AM RADIO EQUIPMENT INSTALLER History and Physical Notes * HPI (History [...]
--- OUTSIDE RECORDS SUMMARY | 2025-01-21 00:07 | XMS_ITS | Encounter Summary ---
Author Organization [facility] Address [address] [facility] [place] [address] Care Team Providers Care Paint Maker Name Role Phone Juana Mesa MD Primary Care Provider Juana Mesa MD Primary Care Provider Juana Mesa MD Unavailable [phone] Juana Mesa MD Unavailable [phone] Juana Mesa MD Unavailable [phone] Juana Mesa MD Unavailable Juana Mesa MD Unavailable [phone] Juana Mesa MD Unavailable [phone] Ra Jara MD Unavailable Dada Lou MD Unavailable Unavailable Paco Holden MD Unavailable [phone] Paramjit Escobar MD Unavailable [phone] Encounter Details Date Type Department Care Team (Late st Contact Info) Description 08/19/2020 Lab Requisition [facility] Care Derm[facility] Lab [address] [facility], [place] [phone] Harper Metzger MD [address] [facility] 3L [place] [address] Social History Tobacco Use Types Packs/Day Years [...] 7.0 Result Component 6.4( 7 6:22 AM MANTEL CRAFTSMAN) No Lang, Marnice A documented as of this encounter Procedures Procedure Name Priority Date/Time Associated Diagnosis Comments DERMATOPATHOLOGY Routine 08/18/2020 12:0 0 AM CDT documented in this encounter Results * DERMATOPATHOLOGY (08/18/2020 12:00 AM CDT) Case Report Dermatopathology Report Case: [id number] Authorizing Provider: Harper Metzger MD Collected: 08/18/2020 12:00 AM Ordering Location: [facility] DermPath Lab Received: 08/19/2020 09:56 AM Pathologist: Shavon Moreno MD Specimen: Skin, mid chest 0 5:29 PM CDT DERMATOPATHOLOGY LABORATORY Final Diagnosis Specimen A. 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 Previous Bx: [id number]. 0 5:29 PM CDT DERMATOPATHOLOGY LABORATORY Gross Description Specimen A: Received is one formalin filled container labeled with the patient's name and designated mid chest.The specimen consists of an ellipse measuring [id number] and is oriented with the notch at [...] cassettes 3-4. Jar 0. 0 5:29 PM CDT DERMATOPATHOLOGY LABORATORY Microscopic Description Specimen [...] to the skin surface. 0 5:29 PM CDT DERMATOPATHOLOGY LABORATORY Disclaimer An external and internal positive and negative controls are appropriate for the histochemical, immunohistochemical and immunofluorescence stain(s) in this case (if any), except where stated explicitly. The performance characteristics of the stain(s) cited in this report were developed and its performance characteristic determined by the Dermatopathology Laboratory at [facility], directed by Dr. Ines Maldonado. These tests need not be, and therefore are not, approved by the [place] Food and Drug Administration. The tests are used for clinical purposes. Billing Codes Specimen Charges Stain Charges 82107 1 0 5:29 PM CDT DERMATOPATHOLOGY LABORATORY Embedded Images 0 5:29 PM CDT DERMATOPATHOLOGY LABORATORY Pathology/Cytolog y TISSUE SPECIMEN FROM SKIN / Unknown 08/18/2020 08/19/2020 9:56 AM CDT Harper Metzger MD LAB - PATHOLOGY/CYTO LOGY ORDERABLES Performing Organization Address City/State/[facility] Co de Phone Number DERMATOPATHOLOGY LABORATORY [facility] - Department of Dermatology [facility] Medicine [address] [place] [address], [address] [phone] documented in this encounter Visit Diagnoses Not on filedocumented in this encounter Care Teams Paint Maker Relationship Specialty Start Date End Date Juana Mesa MD [address] [facility] [address] [place] [address] [place] [phone] PCP - General 07/01/20 04/10/21 Juana Mesa MD [address] [facility] [address] [place] [address] [place] [phone] PCP - General 04/11/21 Juana Mesa MD [address] [facility] [address] [place] [phone] 04/11/21 Juana Mesa MD [address] [facility] [address] [place] [address] [place] [phone] 07/01/20 Juana Mesa MD [address] [facility] [address] [place] [address] [place] [phone] 12/22/19 Juana Mesa MD [address] [facility] [address] [place] [address] [place] [phone] 07/21/19 Juana Mesa MD [address] [facility] [address] [place] [address] [place] [phone] 07/12/18 Juana Mesa MD [facility] [address] [place] [address] [place] [phone] Family Medicine 05/03/18 Ra Jara MD [address] [place] [phone] Endocrinology 04/21/14 Dada Lou MD [address] [place] [phone] Internal Medicine 11/09/15 Paco Holden MD [address] [place] [phone] Neurology 05/11/16 Paramjit Escobar MD [address] [place] [phone] Internal Medicine 11/23/16 documented as of this encounter
--- OUTSIDE RECORDS SUMMARY | 2025-01-21 00:07 | XMS_ITS | Encounter Summary ---
Author Organization [facility] Address [address] [place] [address] Phone Care Team Providers Care Staff Development Nurse Name Role Phone Meredith Aburto EVENT MARKETING REPRESENTATIVE Primary Care Provi arlette No, Physician Primary Care Provider [phone] Encounter Details Date Type Department Care Team (Late st Contact Info) Description 04/23/2024 Telephone [facility] Endocrinology Metabolism and Lipid [address] [facility] Medicine 13th [place] [address] [place] [address] Hillary Mary RMA Social History [...] often do you attend [facility] or muslim services? More than 4 times per year 02/02/2023 Do you belong to any clubs o r organizations such as baptism groups, unions, fraternal or athletic groups, or [...] place to sleep or slept in a detention (including now)? No 02/02/2023 Personal Safety Answer Date Recorded Have you ever been in or are you currently in a harmful physical or emotional relationship or is someone making you feel afraid or unsafe? 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
--- OUTSIDE RECORDS SUMMARY | 2025-01-21 00:07 | XMS_ITS | Encounter Summary ---
Author Organization [facility] Address [address] [place] [address] Care Team Providers Care Bar Tacker Sewing Machine Name Role Phone Juana Mesa MD Primary [...] MD Unavailable Unavailable Paco Holden MD Unavailable [phone] Paramjit Escobar MD Unavailable [phone] Encounter Details Date Type Department Care Team (Late st Contact Info) Description 12/23/2019 Lab Requisition [facility] [address] [facility], [place] [phone] Vashti Milan DO [address] [facility] 3L DEPT [place] [address] Social History Tobacco Use Types Packs/Day Years [...] 7.0 Result Component 6.4( 7 6:22 AM NEWS CLERK) No Lang, Marnice A documented as of this encounter Procedures Procedure Name Priority Date/Time Associated Diagnosis Comments DERMATOPATHOLOGY Routine 12/22/2019 12:0 0 AM NEWS CLERK documented in this encounter Results * DERMATOPATHOLOGY (12/22/2019 12:00 AM NEWS CLERK) Case Report Dermatopathology Report Case: [id number] Authorizing Provider: Vashti Milan DO Collected: 12/22/2019 12:00 AM Ordering Location: [facility] DermPath Lab Received: 12/23/2019 12:34 PM Pathologist: Anamika Whatley MD Specimens: A) - Skin, left upper arm B) - Skin, right back 0 1:39 PM NEWS CLERK DERMATOPATHOLOGY LABORATORY Final Diagnosis Specimen A. 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 SKIN, right back: SEBORRHEIC KERATOSIS, MACULAR (L82.1) 0 1:39 PM NEWS CLERK DERMATOPATHOLOGY LABORATORY Clinical History A: R/O SCC B: Nevus R/O atypia 0 1:39 PM NEWS CLERK DERMATOPATHOLOGY LABORATORY Gross Description Specimen A: Received [...] 5x5x1 mm. Jar 0. 0 1:39 PM NEWS CLERK DERMATOPATHOLOGY LABORATORY Microscopic Description Specimen A. SKIN, [...] is increased basilar pigmentation. 0 1:39 PM NEWS CLERK DERMATOPATHOLOGY LABORATORY Disclaimer An external and internal positive and negative controls are appropriate for the histochemical, immunohistochemical and immunofluorescence stain(s) in this case (if any), except where stated explicitly. The performance characteristics of the stain(s) cited in this report were developed and its performance characteristic determined by the Dermatopathology Laboratory at [facility], directed by Dr. Ines Maldonado. These tests need not be, and therefore are not, approved by the [place] Food and Drug Administration. The tests are used for clinical purposes. Billing Codes Specimen Charges Stain Charges 17209 69458 1 1 0 1:39 PM NEWS CLERK DERMATOPATHOLOGY LABORATORY Embedded Images 0 1:39 PM NEWS CLERK DERMATOPATHOLOGY LABORATORY Pathology/Cytology TISSUE SPECIMEN FROM SKIN / Unknown 12/22/2019 12/23/2019 12:34 PM NEWS CLERK Miscellaneous samples (specimen) TISSUE SPECIMEN FROM SKIN / Unknown 12/22/2019 12/23/2019 12:34 PM NEWS CLERK Vashti Milan DO LAB - PATHOLOGY/C YTOLOGY ORDERABLES Performing Organization Address City/State/[facility] Co de Phone Number DERMATOPATHOLOGY LABORATORY [facility] - Department of Dermatology [address] [place] [address], 5th Floor Lab [address] [phone] documented in this encounter Visit Diagnoses Not on filedocumented in this encounter Care Teams Bar Tacker Sewing Machine Relationship Specialty Start Date End Date Juana Meas MD [address] [facility] [address] [place] [address] [place] [phone] PCP - General 12/22/19 06/30/20 Juana Mesa MD [address] [facility] [address] [place] [address] [place] [phone] PCP - General 07/01/20 04/10/21 Juana Mesa MD [address] [facility] [address] [place] [address] [place] [phone] PCP - General 04/11/21 Juana Mesa MD [address] [facility] [place] [address] 04/11/21 Juana Mesa MD [address] [facility] [place] [phone] 07/01/20 Juana Mesa MD [address] [facility] [place] [phone] 12/22/19 Juana Mesa MD [address] [facility] [place] [phone] 07/21/19 Juana Mesa MD [address] [facility] [place] [phone] 07/12/18 Juana Mesa MD [facility] [place] [phone] Family Medicine 05/03/18 Ra Jara MD [address] [place] [phone] Endocrinology 04/21/14 Dada Lou MD [address] [place] [phone] Internal Medicine 11/09/15 Paco Holden MD [address] [place] [phone] Neurology 05/11/16 Paramjit Escobar MD [address] [place] [phone] Internal Medicine 11/23/16 documented as of this encounter
--- OUTSIDE RECORDS SUMMARY | 2025-01-21 00:07 | XMS_ITS | Encounter Summary ---
Author Organization [facility] Address [address] [place] [address] Care Team Providers Care Cane Weigher Helper Name Role Phone Juana Mesa MD Primary [...] Holden MD Unavailable Paramjit Escobar MD Unavailable [phone] Encounter Details Date Type Department Care Team (Late st Contact Info) Description 07/05/2020 Lab Requisition [facility] [address] [facility], [place] [id number] Vashti Milan, [address] [facility] [address] DEPT [place] [address] Social History Tobacco Use Types Packs/Day Years [...] 7.0 Result Component 6.4( 7 6:22 AM PROJECTION PRINTER) No Kannan Lang documented as of this encounter Procedures Procedure Name Priority Date/Time Associated Diagnosis Comments DERMATOPATHOLOGY Routine 07/01/2020 12:0 0 AM CDT documented in this encounter Results * DERMATOPATHOLOGY (07/01/2020 12:00 AM CDT) Case Report Dermatopathology Report Case: [id number] Authorizing Provider: Vashti Milan DO Collected: 07/01/2020 12:00 AM Ordering Location: [facility] Received: 07/05/2020 11:58 AM Pathologist: Julian Maldonado MD Specimen: Skin, mid chest 0 12:20 PM CDT DERMATOPATHOLOGY LABORATORY Final [...] characteristic determined by the Dermatopathology Laboratory at [facility], directed by Dr. Ines Maldonado. These tests need not be, and therefore are not, approved by the [place] Food and Drug Administration. The tests are used for clinical purposes. Billing Codes Specimen Charges Stain Charges 54591 1 0 12:20 PM CDT DERMATOPATHOLOGY LABORATORY Embedded Images 0 12:20 PM CDT DERMATOPATHOLOGY LABORATORY Pathology/Cytolog y TISSUE SPECIMEN FROM SKIN / Unknown 07/01/2020 07/05/2020 11:58 AM CDT [facility] - PATHOLOGY/C YTOLOGY ORDERABLES DERMATOPATHOLOGY LABORATORY [facility] - Department of Dermatology [facility]/[address] [phone] documented in this encounter Visit Diagnoses Not on filedocumented in this encounter Care Teams Cane Weigher Helper Relationship Specialty Start Date End Date Juana Mesa MD [address] [place] [address] PCP - General 07/01/20 04/10/21 Juana Mesa MD [address] [place] [address] PCP - General 04/11/21 Juana Mesa MD [address] [place] [address] 04/11/21 Juana Mesa MD [address] [place] [address] 07/01/20 Juana Mesa MD [address] [place] [address] 12/22/19 Juana Mesa MD [address] [place] [id number] 07/21/19 Juana Mesa MD [address] [place] [address] 07/12/18 Juana Mesa MD [address] [place] [address] Family Medicine 05/03/18 Ra Jara MD [address] [place] [address] Endocrinology 04/21/14 Dada Lou MD [address] [place] [address] Internal Medicine 11/09/15 Paco Holden MD [facility] [place] [address] Neurology 05/11/16 Paramjit Escobar MD [address] [place] [phone] Internal Medicine 11/23/16 documented as of this encounter
--- OUTSIDE RECORDS SUMMARY | 2025-01-21 00:07 | XMS_ITS | Clinical Summary ---
Author Organization [facility] Address [address] [place] [address] Care Team Providers Care Sourcing Specialist Name Role Phone No, Physician Primary Care Provider [phone] Allergies Active Allergy Reactions Criticality Noted Date Comments Codeine Nausea only,Vomiting,Other (See comments),Stomach upset,Nausea & Vomiting Low 04/06/2009 nausea Reaction: Nausea, Vomiting, , Reaction: Abdominal Cramping, Nausea, Medications budesonide-glycop yr-formoterol (Breztri Aerosphere) 160-9-4.8 mcg/actuation [...] with long-term current use of insulin ([facility]) Use to test three times a day 1 kit 06/07/20 22 Active blood glucose diagnostic (glucose blood) stripIndications: Type 2 diabetes mellitus with diabetic nephropathy, with long-term current use of insulin ([facility]) Check blood sugar three ttimes a day or as directed 300 each 3 06/07/20 22 Active lancets miscIndications:T ype 2 diabetes mellitus with diabetic nephropathy, with long-term current use of insulin ([facility]) Use to test 3 times per day [...] with long-term current use of insulin ([facility]) Inject 1 mg under the skin once [...] 1 tablet (4mg) Sunday, Sunday, Sunday, Sunday, Sunday. 20 tablet 1 07/02/20 24 Active Active Problems Problem Noted Date [...] metapneumovirus Assessment & Plan (01/17/2023 4:04 PM CHANGE DIRECTOR): -chest x-ray was reviewed, seems to be [...] 01/15/2023 Assessment & Plan (01/15/2023 1:29 PM CHANGE DIRECTOR): -noted under the right breast -ordered topical miconazole Altered bowel function 12/19/2022 Allergic conjunctivitis 08/26/2022 Hemorrhoids 08/26/2022 Depression, major, recurrent 05/25/2022 Assessment & Plan (01/15/2023 1:30 PM CHANGE DIRECTOR): -resumed Lexapro Assessment & Plan (05/25/2022 5:06 [...] 04/17/2022 Assessment & Plan (01/15/2023 1:29 PM CHANGE DIRECTOR): -resumed donepezil Assessment & Plan (05/25/2022 5:05 AM CDT): - Continue home Donepezil 5mg qhs Assessment & Plan (05/03/2022 5:17 AM CDT): New Order aricept COVID-19 07/02/2021 Mixed diabetic hyperlipidemi a associated with type 2 diabetes mellitus 04/26/2021 Assessment & Plan (12/21/2021 5:34 AM CHANGE DIRECTOR): Stable Cont lipitor Goal: TC<200, LDL<100, TG<150 Pulmonary hypertension 04/26/2021 Assessment & Plan (04/10/2024 9:37 AM CDT): Pulmonary hypertension with PASP 62 mmHg. Possible cause is due to TR. She is dry, lasix was hold. Chronic anticoagulation 04/26/2021 Nonrheumatic tricuspid valve regurgitation 04/26 Osteoporosis 11/13/2019 Assessment & Plan (01/15/2023 1:29 PM CHANGE DIRECTOR): -reports that she has not been taking [...] needed. Assessment & Plan (01/15/2023 1:28 PM CHANGE DIRECTOR): -ordered hemoglobin A1c, hold Farxiga and semaglutide in the hospital -we will manage with long-acting, pre meal and sliding scale insulin in the hospital -continue to monitor blood sugars, goal inpatient blood sugar is 140-180 Assessment & Plan (05/03/2022 5:16 AM CDT): Chronic Cont glucophage, basaglar, jardiance, ozempic Goal: Hgba1c<6.5 Assessment & Plan (12/21/2021 5:40 AM CHANGE DIRECTOR): Chronic Cont glucophage, basaglar, jardiance, ozempic Goal: Hgba1c<6.5 Assessment & Plan (02/22/2021 2:56 PM CDT): Stable Cont metformin COPD exacerbation 10/18/2019 Assessment & Plan (01/17/2023 4:08 PM CHANGE DIRECTOR): -with severe exacerbation -likely from viral infection -diffuse wheezing noted bilaterally on arrival, improving. -started on steroids, inhaler therapy, s/p scheduled DuoNebs. Transition to PO steroid taper Assessment & Plan (10/18/2019 12:03 PM CHANGE DIRECTOR): Give germán and kenwest here in clinic Order CXR Order zpakirill, medrol pack Chronic kidney disease (CKD), stage III (moderat e) 11/08/2015 Overview (05/06/2019): Overview: Based on GFR's Assessment & Plan (01/15/2023 1:30 PM CHANGE DIRECTOR): -renal function is at baseline, avoid nephrotoxic agents, monitor urine output Atrial fibrillation ([facility]) 04/11/2014 Overview (03/01/2017): ATRIAL FIBRILLATION Assessment & [...] Warfarin Assessment & Plan (01/17/2023 4:06 PM CHANGE DIRECTOR): -resumed Coreg and Coumadin. Patient is status post pacemaker insertion. INR 3.3 01/14. - INR supratherapeutic at 8.4 > 7.8. Verified with facility that they can draw INR 01/18 and 01/22. Dr. Phipps (patient pipe foreman) monitors outpatient for adjustment. Assessment & Plan (05/25/2022 4:55 AM CDT): - S/p mechanical mitral valve - Pacemaker (Medtronic Adapta) placed on 10/25/2015. Permanent afib 100% V paced. 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 - INR goal 2.5-3.[address] 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 Assessment & Plan (01/16/2023 11:14 AM CHANGE DIRECTOR): -resumed Coreg and losartan. Patient persistent hypertensive. [...] [facility] office follows tj. He is her pipe foreman. On warfarin. 11/05/2014 Assessment & Plan (04/10/2024 [...] function Assessment & Plan (01/17/2023 4:09 PM CHANGE DIRECTOR): - goal INR of 2.5-3.5, on Coumadin - INR supratherapeutic at 8.4 > 7.8. Verified with facility that they can draw INR 01/18 and 01/22. Dr. Phipps (patient pipe foreman) monitors outpatient for adjustment. - Holding coumadin, [...] 01/15/2023 Assessment & Plan (12/21/2021 5:42 AM CHANGE DIRECTOR): Worsening pain Use flexeril PRN Ear discomfort, left 06/15/2021 021 Neck pain 05/04/2021 01/15/2023 Assessment & Plan (12/21/2021 5:42 AM CHANGE DIRECTOR): Worsening pain Use flexeril PRN Assessment & [...] w ith chronic systolic congestive heart failure ([facility]) 02/22/2021 01/15/2023 Assessment & Plan (12/21/2021 5:35 AM CHANGE DIRECTOR): Stable ruslan Salinas Goal: SBP<140, DP<90 Assessment & Plan (05/11/2021 4:16 AM CDT): Stable Cont ruslan lombardi Assessment & Plan (02/22/2021 2:52 PM CDT): Stable ruslan Salinas Right leg pain 11/22/2020 06/30/2021 Assessment & Plan (12/06/2020 4:35 AM CHANGE DIRECTOR): Was likely secondary to cellulitis Is better Assessment & Plan (11/30/2020 5:22 AM CHANGE DIRECTOR): New Order STAT venous doppler If negative [...] 11/13/2019 01/15/2023 Sepsis with cutaneous manife stations ([facility]) 11/13/2019 01/15/2023 Type 2 diabetes mellitus not at goal ([facility]) 11/13/2019 01/15/2023 Assessment & Plan (02/14/2020 12:37 [...] 06/30/2021 Assessment & Plan (11/13/2019 10:25 AM CHANGE DIRECTOR): Recently discharged from hospital for pneumonia and [...] 06/30/2021 Assessment & Plan (10/29/2019 1:33 PM CHANGE DIRECTOR): D/w primary care nurse and hospitalist and sent for direct admission to the hospital Aortic stenosis due to bicuspid aortic valve 9 01/15/2023 Cataracts, bilateral 05/06/2019 023 Overview (05/06/2019): Overview: SeeDr. Jaydon Gabriel? Gastroesophageal reflux dise ase without esophagitis 05/06/2019 [...] dermatitis 03/09/2017 01/15/2023 CHF (congestive heart failure) ([facility]) 02/22/2017 03/21/2023 Assessment & Plan (01/17/2023 4:07 PM CHANGE DIRECTOR): -echocardiogram from 05/25/2022 showed EF of 54% -currently there is no evidence of fluid overload on exam, proBNP is actually better than the previous admission -resumed Lasix and Aldactone -goal-directed medical therapy as tolerated Assessment & Plan (05/25/2022 5:01 AM CDT): - 04/10/22 2D echo at [facility] - EF 50%, mild aortic stenosis, mechanical [...] 01/15/2023 Assessment & Plan (12/21/2021 5:41 AM CHANGE DIRECTOR): Stable Cont allopurinol Assessment & Plan (02/22/2021 [...] 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 History of mitral valve repair 07/09/2016 01/15/2023 Atherosclerosis of aorta ([facility]) 07/06/2016 01/15/2023 Overview (05/06/2019): Overview: CXR 01/01/14 Benign colonic polyp 05/10/2016 023 Lenticular sclerosis 03/13/2016 023 Complete atrioventricular block ([facility]) 08/03/2015 01/15/2023 History of mitral valve repl [...] 05/22/2014 01/15/2023 Chronic obstructive pulmonar y disease ([facility]) 05/19/2014 01/15/2023 Overview (05/06/2019): Overview: Doing well with Spiriva and off Qvar. Not needing albuterol. Patient has moderate COPD. She is clinically stable. I will continue her on Symbicort 160/4.5 b.i.d., p.r.n. albuterol and Atrovent nebs, and p.r.n. albuterol. Had position classifier has also added incruse once a day which she will continue. I will order PFT Assessment & Plan (05/25/2022 3:45 AM CDT): - Not needing albuterol as outpatient per pulmonology note - Redegjason Persaudta 1 puff daily History of [place] (myocardial infarction) 04/21/2014 01/15/2023 Overview (05/06/2019): Overview: QUESTIONABLE, await records. Demand ischemia? No blockage per the patient. Pacemaker was placed for bradycardia. ??? Sleep apnea 04/11/2014 01/15/2023 Overview (02/28/2017): OT UNSPCF SLEEP APNEA Assessment & Plan (05/25/2022 2:33 AM CDT): - CPAP ordered - MAC precautions Type 2 diabetes mellitus wit h renal complication 04/11/2014 01/15/2023 Overview (02/28/2017): DMII WO CMP NT ST UNCNTR Assessment & Plan (05/25/2022 4:52 AM CDT): - Follows with endo clinic at [facility] (Home reg ozempic, Jardiance 10, metformin [...] Ozempic Assessment & Plan (12/10/2018 2:06 PM CHANGE DIRECTOR): I called her to assess response to her new med, ozempic. Took first correct dose two days ago, did not feel great yesterday, but feels well today. Stopped januvia as directed. Will take next ozempic dose in 5 days and let us know response. Ra Jara Benign neoplasm of large intestine 04/11/2014 01/15/2023 Overview (03/02/2017): BENIGN NEOPLASM LG BOWEL Coronary arteriosclerosis in [place] artery 04/11/2014 06/30/2021 Overview (03/02/2017): CRNRY ATHRSCL [...] with diet Coronary artery disease invo lving [place] coronary artery of [place] heart without angina pectoris 05/09/2013 01/15/2023 Overview (06/25/2019): Overview: No chest discomfort History of asthma 03/31/2013 01/15/2023 Overview (02/08/2022): Mainly with viral infections. Mitral valve disease 03/19/2013 023 Cardiomyopathy 03/19/2013 01/15/2023 Chronic systolic heart failure ([facility]) 03/19/2013 01/15/2023 Mixed urge and stress incontinence 09/09/2012 01/15/2023 Dry eye syndrome 03/04/2012 01/15/2023 Overview (02/08/2022): Not bad as of 11/05/2014 not compliant with drops always. History of colonic polyps 04/04/2011 Overview (05/06/2019): Overview: Colonoscopy Removed 8 polyps, all benign. 10/23/16 tubular adenoma x 4 Complicated by GI bleed hospital stay 10/27/16 - 11/04/16, [facility] Asystole ([facility]) 02/09/2011 1 Persistent atrial fibrillation 02/09/2011 01/15/2023 [...] Encounters Date Type Department Care Team Description 12/24/2024 10:15 AM CHANGE DIRECTOR Ancillary Procedure [facility] Cardiology [address] [facility] [address] [place] [phone] Atrial fibrillation, unspecified type (HCC); Sick sinus syndrome (CMS/HCC) (HCC); Pacemaker 12/24/2024 Telephone [facility] Cardiology [address] [facility] [address] [place] [phone] Romel Graves MD 12/23/2024 Anticoagulation Visit [facility] Cardiology [address] [place] [address] [place] [phone] Kristi Torres RN Atrial fibrillation, unspecified type (HCC) (Primary Dx) 12/23/2024 Telephone [facility] Cardiology [address] [place] [address] [place] [phone] Romel Graves MD 12/22/2024 Telephone [facility] Pulmonology [address] [facility] [address] [place] [phone] Jake Turner MD 12/19/2024 Telephone [facility] Endocrinology Metabolism and Lipid [address] [facility] Advanced Medicine 13th [place] [address] [place] [address] Hamida Mayorga CMA Med Management (Pts voicemail full. We do have her Ozempic 1mg 4 boxes) 12/15/2024 Anticoagulation Visit [facility] Cardiology [address] [place] [address] [address] [place] [phone] Allie Levi RN Atrial fibrillation, unspecified type (HCC) (Primary Dx) 12/15/2024 Telephone [facility] Cardiology [address] [place] [address] [place] [phone] Romel Graves MD INR results 12/10/2024 1:30 PM CHANGE DIRECTOR Office Visit [facility] Cardiology [address] [place] [address] [place] [phone] Romel Graves MD History of mitral valve replacement with mechanical valve (Primary Dx); Chronic anticoagulation; Hypertension associated with diabetes (HCC); Nonrheumatic aortic valve stenosis; Stage 3b chronic kidney disease (HCC); MAC on CPAP 12/08/2024 Anticoagulation Visit [facility] Cardiology [address] [place] [address] [place] [phone] Kristi Torres RN Atrial fibrillation, unspecified type (HCC) (Primary Dx) 12/02/2024 Anticoagulation Visit [facility] Cardiology [address] [place] [address] [place] [phone] Allie Levi RN Atrial fibrillation, unspecified type (HCC) (Primary Dx) 11/27/2024 7:00 AM CHANGE DIRECTOR Ancillary Procedure [facility] Cardiology [address] [place] [address] [place] [phone] Pacemaker (Primary Dx); Atrial fibrillation, unspecified type (HCC); Sick sinus syndrome (CMS/HCC) (HCC) 11/27/2024 Orders Only [facility] Cardiology [address] [place] [address] [place] [phone] Romel Graves MD Atrial fibrillation, unspecified type (HCC) (Primary Dx); Sick sinus syndrome (CMS/HCC) (HCC); Pacemaker 11/24/2024 Anticoagulation Visit [facility] Cardiology [address] [place] [address] [place] [phone] Allie Levi RN Atrial fibrillation, unspecified type (HCC) (Primary Dx) 11/17/2024 Anticoagulation Visit [facility] Cardiology [address] [place] [address] [place] [phone] Kristi Torres RN Atrial fibrillation, unspecified type (HCC) (Primary Dx) 11/13/2024 Telephone [facility] Cardiology [address] [place] [address] [place] [phone] Romel Graves MD 11/10/2024 Anticoagulation Visit [facility] Cardiology [address] [place] [phone] Kristi Torres RN Atrial fibrillation, unspecified type (HCC) (Primary Dx) 11/03/2024 9:45 AM CHANGE DIRECTOR Ancillary Procedure [facility] Cardiology [address] [facility] [address] [place] [phone] Pacemaker [Z95.0] (Primary Dx); Atrial fibrillation, unspecified type (HCC); Sick sinus syndrome (CMS/HCC) (HCC) 11/03/2024 Anticoagulation Visit [facility] Cardiology [address] [place] [phone] Allie Levi RN Atrial fibrillation, unspecified type (HCC) (Primary Dx) 10/27/2024 Anticoagulation Visit [facility] Cardiology [address] [place] [phone] Ghassan Benavides RN Atrial fibrillation, unspecified type (HCC) (Primary Dx) from Last 3 Months Immunizations Immunization Administration Dates Next Due Influenza, Quad, Adjuvantate [...] Other Medical 2005 Arrythmia Hx Other Medical 2007 colitis Personal history of other di seases of the respiratory system Personal history of asthma - (Added by TW Conv) Old myocardial infarction Histor y of myocardial infarction - (Added by TW Conv) Asthma Cataract Diabetes mellitus ([facility]) 2009 Heart disease 1975 Hypertension Rheumatic fever 1950 Sleep apnea 2012 Cardiac rhythm disturbance Covid-19 Covid Pacemaker COPD (chronic obstructive pu lmonary disease) ([facility]) CHF (congestive heart failur e) ([facility]/HCC) ([facility]) Family History Medical History Relation Name Comments Coronary artery disease Brother Diabetes Maternal Grandmother Maile Patel Diabetes type II Maternal Grandmother Maile Patel Linda betes -Type II; Coronary artery disease Mother Nakia Rachel Heart attack Mother Nakia Wilson Heart disease Mother Nakia Wilson Hyperlipidemia Mother Nakia Wilson Hypertension Mother Nakia Wilson Macular degeneration Mother Nakia Wilson Thyroid disease Mother Nakia Wilson Vision loss Mother Nakia Wilson Thyroid disease Other 1 Diabetes Other 2 Hypertension Other 3 Heart disease Other 4 Relation Name Status Comments Brother Alive Father (Age 93) Maternal Grandmother Maile Patel Mother Nakia Rachel (Age 88) Other 1 Other 2 Other 3 Other 4 Social History Tobacco Use Types Packs/Day Years Used Date Smoking Tobacco: Former Cigarettes 3 51.2 S tarted: 11/26/1973 Smokeless Tobacco: Never Tobacco [...] 02/02/2023 How often do you attend chur or taoist services? More than 4 times per year 02/02/2023 Do you belong to any clubs o r organizations such as protestant groups, unions, fraternal or athletic groups, or [...] place to sleep or slept in a nursing home (including now)? No 02/02/2023 Personal Safety Answer Date Recorded Have you ever been in or are you currently in a harmful physical or emotional relationship or is someone making you feel afraid or unsafe? Denies 04/02/2024 Comments No Sex and Gender Information Value Date Recorded Sex Assigned at Not on file Legal Sex Female 9:08 AM CHANGE DIRECTOR Gender Identity Female 06/25/2019 7:13 AM CDT Sexual Orientation Not on file Obstetrics History Last Filed Vital Signs Vital Sign Reading Time Taken Comments Blood Pressure 128/76 12/10/2024 1:25 PM CHANGE DIRECTOR Pulse 91 12/10/2024 1:25 PM CHANGE DIRECTOR Temperature 36.2 C (97.1 F) 09/12/2024 11:39 AM CDT Respiratory Rate 18 04/10/2024 8:25 AM CDT Oxygen Saturation 99% 12/10/2024 1:25 PM CHANGE DIRECTOR Inhaled Oxygen Concentration - - Weight 85.7 kg (189 lb) 12/10/2024 1:25 PM CHANGE DIRECTOR Height 157.5 cm (5' 2 ) 12/10/2024 1:25 PM CHANGE DIRECTOR Body Mass Index 34.57 12/10/2024 1:25 PM CHANGE DIRECTOR Plan of Treatment Health Maintenance Due Date Last Done Comments Osteoporosis Screening-Bone Density Scan 1943 Dilated Eye Exam 1943 Hepatitis B Screening 1961 Zoster Vaccine (1 of 2) 1993 Albumin Creatinine Ratio, Urine 02/28/2020 02/27/2019, 11/22/2018, 07/26/2017 Well Visit 65+ 07/05/2021 07/05/2020, 12/22/2019 Foot Exam 03/18/2022 03/18/2021 Depression Screening 01/30/2024 01/29/2023, 07/05/2022, 12/12/2021, Additional history exists Covid-19 Vaccine (5 - 2023-2 5 season) 2024 04/25/2022, 08/24/2021, 01/12/2021, Additional history exists Influenza Vaccine (#1) 2024 , 09/14/2020, 09/02/2019, Additional history exists Lipid Panel 08/17/2024 08/17/2023, 04/28, 04/19/2022, Additional history exists Hemoglobin A1C 03/13/2025 09/12/2024, 02/24, 09/07/2023, Additional history exists eGFR 04/09/2025 04/09/2024, 03/26, 04/07/2024, Additional history exists Fall Risk Assessment 04/10/2025 04/10/2024, 12/12/2021, 07/04/2021, Additional history exists DTaP/Tdap/Td Vaccine (5 - Td or Tdap) 05/24/2032 05/24/2022, 03/17/2013, 03/17/2013, Additional history exists Pneumococcal vaccine 65+ Completed 018, 06/24/2015, 09/04/2011, Additional history exists Medical Devices Implanted Type Area Investigator Welfare Device Identifier Shelf Expiration Date Model / Serial / Lot [employer]rollHero Coil Embolization Tornado Microcoil [place] Od3-2mm .018 In Catheter [id number] - [id number] Implanted:Qty: 1 on 05/24/2022 at [facility] [employer] 03/13/2027 [id number] / / [id number] PayrollHero Coil Embolization Tornado Microcoil [place] Od3-2mm .018 In Catheter [id number] - [id number] Implanted:Qty: 1 on 05/24/2022 at [facility] [employer] 03/13/2027 [id number] / / [id number] PayrollHero Coil Embolization Tornado Microcoil [place] Od3-2mm .018 In Catheter [id number] - [id number] Implanted:Qty: 1 on 05/24/2022 at [facility] [employer] 03/13/2027 [id number] / / [id number] PayrollHero Coil Embolization Tornado Microcoil [place] Od3-2mm .018 In Catheter [id number] - [id number] Implanted:Qty: 1 on 05/24/2022 at [facility] [employer] 03/13/2027 [id number] / / [id number] PayrollHero Coil Embolization Tornado Microcoil [place] Od3-2mm .018 In Catheter [id number] - [id number] Implanted:Qty: 1 on 05/24/2022 at [facility] [employer] 03/13/2027 [id number] / / [id number] Angio-Seal Vip 6fr Closere Device [id number] - [id number] Implanted:Qty: 1 on 05/24/2022 at [facility] [employer] 02/23/2023 [id number] / / [id number] Procedures Procedure Name Priority Date/Time Associated Diagnosis Comments DEVICE CHECK - REMOTE Routine 12/24/2024 10:56 AM CHANGE DIRECTOR Atrial fibrillation, unspecified type (HCC) Sick sinus syndrome (CMS/HCC) (HCC) Pacemaker PROTIME-INR Routine 12/15/2024 PROTIME-INR Routine 12/15/2024 ELECTROCARDIOGRAM REPORT Routine 025 3:54 PM CHANGE DIRECTOR History of mitral valve replacement with mechanical valve PROTIME-INR Routine 12/08/2024 PROTIME-INR Routine 12/01/2024 DEVICE CHECK - REMOTE Routine 11/27/2024 4:23 PM CHANGE DIRECTOR Atrial fibrillation, unspecified type (HCC) Sick sinus syndrome (CMS/HCC) (HCC) PROTIME-INR Routine 11/24/2024 PROTIME-INR Routine 11/16/2024 DEVICE CHECK - REMOTE Routine 11/13/2024 12:27 PM CHANGE DIRECTOR Atrial fibrillation, unspecified type (HCC) Sick sinus syndrome (CMS/HCC) (HCC) PROTIME-INR Routine 11/10/2024 PROTIME-INR Routine 11/03/2024 PROTIME-INR Routine 10/21/2024 POCT HEMOGLOBIN A1C Routine 09/12/2024 1 1:49 AM CDT Type 2 diabetes mellitus with diabetic nephropathy, with long-term current use of insulin ([facility]) EGFR Routine 04/09/2024 10:22 PM CDT POCT LIPID PANEL Routine 08/17/2023 3:06 PM CDT Mixed diabetic hyperlipidemia associated with type 2 diabetes mellitus (HCC) ALBUMIN CREATININE RATIO, URINE Routine 02/27/2019 7:47 AM CDT Type 2 diabetes mellitus with hyperglycemia, with long-term current use of insulin ([facility]/HCC) from Last 3 Months or Most Recently Relevant to Health Maintenance Results * DEVICE CHECK - REMOTE (12/24/2024 10:56 AM CHANGE DIRECTOR) Anatomical Region Laterality Modality Other Narrative 12/24/2024 3:20 PM CHANGE DIRECTOR Medtronic Adapta Single Pacemaker. Dx; SSS, Afib. DOI-10/25/2015-elsewhere. [employer] remote monitoring. Routine VVI Pacemaker Remote. Transmission attached. Battery status: ENTRY LEVEL ELECTRICAL ENGINEER reached on 12/22/24. [employer] tech support reports that patient has standard 90 day replacement window Patient is pacemaker dependent Stable lead impedances, pacing and sensing thresholds. Presenting rhythm: [employer] DRIVER O[employer] DRIVER-99.8% No Ventricular high rate episodes detected. Medications: Warfarin, Entresto, carvedilol 3.125 mg See scanned report. Office pacemaker follow up: Pending generator change Called patient and patient's daughter returned phone call. Informed patient's daughter Deneen that the patient's pacemaker had reached [employer]EL [employer]INEER. Patient's daughter confirms patient is still taking warfarin, Entresto, and carvedilol 3.125 mg. Patient's daughter confirms patient is diabetic. Patient lives in [place], and patient's daughter would like pacemaker replacement to happen at [facility] with Dr. Baum. Please call [phone] to reach patient's daughter Deneen for scheduling. Sunny Braun, RN Result [facility] Romel Graves MD CV CARDIAC SERVICES PROCEDURES F inal Result * (ABNORMAL) Protime-INR (12/15/2024) INR 6.90(A) 0.90 - 1.10 EXTERNAL LAB Blood Result [facility] Provider MD LAB BLOOD ORDERABLES Edit ed Result - Final Performing Organization Address [facility]/ZIP Co de Phone Number EXTERNAL LAB * (ABNORMAL) Protime-INR (12/15/2024) INR 6.90(A) 0.90 - 1.10 EXTERNAL LAB Blood Result [facility] Provider MD LAB BLOOD ORDERABLES Kami l Result Performing Organization Address [facility]/ZIP Co de Phone Number EXTERNAL LAB * Electrocardiogram Report (12/10/2024 3:54 PM CHANGE DIRECTOR) Result [facility] Romel Graves MD ECG ORDERABLES Final Result * (ABNORMAL) Protime-INR (12/08/2024) INR 3.80(A) 0.90 - 1.10 EXTERNAL LAB Blood Result [facility] Provider MD LAB BLOOD ORDERABLES Kami l Result Performing Organization Address City/[facility]/ZIP Co de Phone Number EXTERNAL LAB * (ABNORMAL) Protime-INR (12/01/2024) INR 3.30(A) 0.90 - 1.10 EXTERNAL LAB Blood Result [facility] Provider LAB BLOOD ORDERABLES Kami l Result Performing Organization Address City/[facility]/ZIP Co de Phone Number EXTERNAL LAB * DEVICE CHECK - REMOTE (11/27/2024 4:23 PM CHANGE DIRECTOR) Anatomical Region Laterality Modality Other Narrative 12/02/2024 7:53 AM CHANGE DIRECTOR Medtronic Adapta Single Pacemaker. Dx; SSS, Afib. DOI-10/25/2015-elsewhere. [facility] remote monitoring. VVIR Pacemaker Remote to assess battery status. Transmission attached. Battery status: 2.61 V, < 1 month remaining battery life to PAUL. Stable lead impedances, pacing and sensing thresholds. Presenting rhythm: Vpaced. 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 No Ventricular high rate episodes detected. Medications: Carvedilol, Warfarin, Entresto See scanned report. Office pacemaker follow up: Pending generator change. [facility] remote f/u 12/24/2024. Ailyn Shay RN Result [facility] Romel Graves MD CV CARDIAC SERVICES PROCEDURES F inal Result * (ABNORMAL) Protime-INR (11/24/2024) INR 4.20(A) 0.90 - 1.10 EXTERNAL LAB Blood Result [facility] Historical Provider MD LAB BLOOD ORDERABLES Kami l Result EXTERNAL LAB * (ABNORMAL) Protime-INR (11/16/2024) INR 3.70(A) 0.90 - 1.10 EXTERNAL LAB Blood Result [facility] Historical Provider MD LAB BLOOD ORDERABLES Kami l Result EXTERNAL LAB * DEVICE CHECK - REMOTE (11/13/2024 12:27 PM CHANGE DIRECTOR) Anatomical Region Laterality Modality Other Narrative 11/13/2024 12:59 PM CHANGE DIRECTOR Medtronic Adapta Single Pacemaker. Dx; SSS, Afib. DOI-10/25/2015-elsewhere. [facility] remote monitoring. Routine VVIR Pacemaker Remote to assess battery status. Transmission attached. Battery status: 2.63 V, < 1 month remaining battery life to PAUL. Stable lead impedances, pacing and sensing thresholds. Presenting rhythm: Vpaced. 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 No AT/AF episodes noted. No Ventricular high rate episodes detected. Medications: Carvedilol, Warfarin, Entresto See scanned report. Office pacemaker follow up: Pending generator change. [facility] remote f/u 11/27/2024. Ailyn Shay, RN Result [facility] Romel Graves MD CV CARDIAC SERVICES PROCEDURES F inal Result * (ABNORMAL) Protime-INR (11/10/2024) INR 4.90(A) 0.90 - 1.10 EXTERNAL LAB Blood Result [facility] Historical Provider MD LAB BLOOD ORDERABLES Kami l Result EXTERNAL LAB * (ABNORMAL) Protime-INR (11/03/2024) INR 3.40(A) 0.90 - 1.10 EXTERNAL LAB Blood Result [facility] Historical Provider MD LAB BLOOD ORDERABLES Kami l Result EXTERNAL LAB * (ABNORMAL) Protime-INR (10/21/2024) INR 3.00(A) 0.90 - 1.10 EXTERNAL LAB Blood Result [facility] Historical Provider MD LAB BLOOD ORDERABLES Kami l Result EXTERNAL LAB * POCT hemoglobin A1c (09/12/2024 11:49 AM CDT) Hemoglobin A1C, POC 6.7 4.0 - 5.6 % Blood 09/12/2024 11:4 9 AM CDT Result [facility] Ra Jara MD POINT OF CARE TEST ORDERA BLES Final Result * (ABNORMAL) eGFR (04/09/2024 10:22 PM CDT) eGFR 30(L) >=60 mL/min/1. 73 m2 Comment: Interpretive Data Reference Interval Normal >/= 90 mL/min/1.73m2 Mildly decreased* 60 - 89 mL/min/1.73m2 Mildly to moderately decreased 45 - 59 mL/min/1.73m2 Moderately to severely decreased 30 - 44 mL/min/1.73m2 Severely decreased 15 - 29 mL/min/1.73m2 Kidney Failure < 15 mL/min/1.73m2 *Relative to young adult level Estimated glomerular [...] 2 PM CDT 04/09/2024 11:04 PM CDT Caryn GOSS LAB BLOOD ORDERABL ES Final Result [facility] Department [place] [address] * POCT lipid panel (08/17/2023 3:06 PM CDT) Cholesterol, POC 134 mg/dL Comment:Glu 154 HDL, POC 28 mg/dL Triglycerides, POC 198 mg/dL LDL Cholesterol POC 66 mg/dL Chol/HDL Ratio, POC 2.4 Non-HDL Cholesterol, POC 106 mg/dL Cholesterol Total, POC 134 mg/dL Capillary blood 08/17/2023 3 :06 PM CDT Ulises Phipps MD POINT OF CARE TEST [...] abnormalities in albumin excretion as follows: Category Result (mcg/mg creatinine) Normal <30 Microalbuminuria 30-299 Clinical albuminuria > OR = 300 The ADA recommends that at least two of three specimens collected within a 3-6 month period be abnormal before considering a patient to be within a diagnostic category. Urine 02/27/2019 7:47 AM CDT 02/27/2019 7:48 AM CDT Narrative [facility] - 02/28/2019 3:29 PM CDT FASTING:YES FASTING: YES Resulting Agency Comment Performing Organization Information: Site ID: [id number] Name: [facility] Address: [address] [place] [address] [place] [id number] Director: Hermelindo Arce D.O., MPH Ra Jara MD LAB URINE ORDERABLES Kami yun Result ISMAEL GUEVARA [facility] [place] from Last 3 Months or Most Recently Relevant to Health Maintenance Insurance [address] [place] [address] MEDICARE AARP MEDICARE AARP AARP MEDICARE Dr Dasilva [address] [place], [place] [id number] MEDICARE Advance Directives For more information, please contact: [phone] Documents on File Type Date Recorded Patient Director Data Architecture Expl anation ADVANCE DIRECTIVE 02/05/2023 10:58 AM [...] 11:11 PM 06/05/2022 8:42 PM Care Teams Sourcing Specialist Relationship Specialty Start Date End Date No, Physician PCP - General 09/12/24
--- OUTSIDE RECORDS SUMMARY | 2025-01-21 00:07 | XMS_ITS | Clinical Summary ---
Author Organization [facility] Address [address] [place] [address] Care Team Providers Care Rectifier Operator Name Role Phone Meredith Aburto NP Primary Care Provider [phone] Allergies Active Allergy Reactions Criticality Noted Date [...] tablet (10 mg total) by mouth daily. 08/28/20 24 Active atorvastatin (LIPITOR) 10 MG tablet Take 1 tablet (10 mg total) by mouth nightly at bedtime. Active donepezil (ARICEPT) 5 MG Tab Take 1 tablet (5 mg total) by mouth nightly at bedtime. Active GEMTESA 75 MG tablet Take 1 tablet (75 mg total) by mouth nightly. 12/04/19 25 Active SEMAGLUTIDE, 1 MG/DOSE, SC Inject 1 mg into the skin once a week. Mondays Active acetaminophen (TYLENOL) 500 MG tablet Take 1 tablet (500 mg total) by mouth every 6 (six) hours as needed for Pain. Active MYRBETRIQ 25 MG 24 hr tablet Take 1 tablet (25 mg total) by mouth daily. 12/15/19 25 Active ferrous sulfate EC 324 (65 Fe) MG tablet Take 1 tablet (324 mg total) by mouth daily with breakfast. 30 tablet 2 12/20/19 25 Active HYDROcodone-aceta minophen (NORCO) 5-325 MG tabletIndications :Acute Pain < 7 Day Supply Take 1 tablet by mouth every 6 (six) hours as needed for Pain. Indications: Acute Pain < 7 Day Supply 15 tablet 12/19/19 Active warfarin (COUMADIN) 1 MG tablet Take 1-2 tablets (1-2 mg total) by mouth daily. Take 1 mg on 01/02/25, followed by 2mg thereafter. Recommend INR check on 01/04/25 90 tablet 01/02/20 Active carvedilol (COREG) 3.125 MG tablet Take 1 tablet (3.125 mg total) by mouth 2 (two) times daily. Disconti nued(Sto p Taking at Discharg e) furosemide (LASIX) 40 MG tablet Take 1 tablet (40 mg total) by mouth daily. 05/23/20 025 Disconti nued(Sto p Taking at Discharg e) spironolactone (ALDACTONE) 25 MG tablet Take 1 tablet (25 mg total) by mouth daily. 05/23/20 025 Disconti nued(Sto p Taking at Discharg e) azelastine (ASTELIN) 0.1 % nasal spray 2 sprays by Nasal route 2 (two) times daily. Disconti nued(Err or) diclofenac sodium (VOLTAREN) 1 % gel Apply 2 g topically nightly as needed (knee pain). Disconti nued(Err or) Senna (SENOKOT) 8.6 MG tablet Take 1 tablet (8.6 mg total) by mouth nightly. Disconti nued(Err or) fluticasone propionate (FLONASE) 50 MCG/ACT nasal spray 1 spray by Each Nostril route 2 (two) times a day. Disconti nued(Err or) budesonide-glycop yrrolate-formoter ol (BREZTRI AEROSPHERE) 160-9-4.8 MCG/ACT inhaler Inhale 2 puffs into the lungs 2 (two) times daily. 025 Disconti nued(Err or) sacubitril-valsar buenrostro (ENTRESTO) 24-26 MG tablet Take 1 tablet by mouth 2 (two) times daily. 025 Disconti nued(Sto p Taking at Discharg e) polyethylene glycol (GLYCOLAX) packet Take 240 mLs (17 g total) by mouth daily as needed for Constipation. Dissolve powder in 240 mL water 025 Disconti nued(Err or) warfarin (COUMADIN) 2 MG tablet Take 1-2 tablets (2-4 mg total) by mouth see administration instructions. 4 mg Sunday, Sunday and Sunday, 2 mg on , , Sat and Sun 40 tablet 12/19/19 25 025 Disconti nued(Sto p Taking at Discharg e) amoxicillin-clavu lanate (AUGMENTIN) 875-125 MG tablet Take 1 tablet (875 mg total) by mouth 2 (two) times daily. 12/23/19 25 025 Disconti nued(Sto p Taking at Discharg e) doxycycline monohydrate (ADOXA) 100 MG tablet Take 1 tablet (100 mg total) by mouth 2 (two) times daily. 12/23/19 25 025 Disconti nued(Sto p Taking at Discharg e) methylPREDNISolon e, JEANNETTE, (MEDROL DOSEPAK) 4 MG tablet Take 1-5 tablets (4-20 mg total) by mouth 2 (two) times daily. 12/23/19 25 025 Disconti nued(Sto p Taking at Discharg e) ondansetron (ZOFRAN-ODT) 4 MG disintegrating tablet Take 1 tablet (4 mg total) by mouth every 8 (eight) hours as needed for Nausea. 12/23/19 25 025 Disconti nued(Err or) Active Problems Problem Noted Date Diagnosed Date Acute exacerbation of CHF (c ongestive heart failure) ([facility]) 12/26/2024 CHF exacerbation ([facility]) 12/25/2024 Supratherapeutic INR 12/15/2024 Encounters Date Type Department Care Team Description 12/25/2024 9:56 AM POTATO INSPECTOR - 01/02/2025 11:37 PM [facility] Hospital Encounter [facility] [place] [address] Nik Ott MD Curtis, MD Wanda Santos Kandace C, MD Bismack, MD Dontrell Broussard, MD Fannie Rivera Deborah, MD Wolf, Brittany, PA-C D'Souza, Gabbi Gallego MD Shortness Of Breath Discharge Disposition: Detention Facility 12/25/2024 Travel 12/23/2024 Hospital Follow-up Call [facility] [place] [address] Yeny Walter LPN Follow Up Call (ADRIAN 12/15-12/19/24) 12/15/2024 11:05 AM POTATO INSPECTOR - 12/19/2024 3:41 PM POTATO INSPECTOR Hospital Encounter [facility] [place] [address] Swapna Celis MD Jumean, Khaled, MD Nava, Jeff Kiser MD Headache Discharge Disposition: Intermediate Care Facility 12/15/2024 Travel from Last 3 Months Family History Medical History Relation Comments Heart Disease Mother Relation Status Comments Mother Social History Tobacco Use Types Packs/Day Years Used Date Smoking Tobacco: Former Cigarettes Smokeless Tobacco: Never Tobacco Cessation:Counseling Given: Not Answered Alcohol Use Standard Drinks/Week Comments Yes 0 (1 standard drink = 0.6 oz pur e alcohol) once a month [facility] Utilities Answer Date Recorded In the past 12 months has [facility] [employer], gas, oil, or water [employer] threatened to shut off services in your home? No 12/26/2024 Humiliation, Afraid, Rape, and Kick questionnair e Answer Date Recorded Within the last year, have y ou been afraid of your partner or ex-partner? No 12/26/2024 Within the last year, have y ou been humiliated or emotionally abused in other ways by your partner or ex-partner? No Within the last year, have y ou been kicked, hit, slapped, or otherwise physically hurt by your partner or ex-partner? No 12/26/2024 Within the last year, have y ou been raped or forced to have any kind of sexual activity by your partner or ex-partner? No 12/26/2024 Overall Financial Resource Strain (CARDIA) Answe r Date Recorded How hard is it for you to pa y for the very basics like food, housing, medical care, and heating? Somewhat hard 12/26/2024 Hunger Vital Sign Answer Date Recorded Within the past 12 months, y ou worried that your food would run out before you got the money to buy more. Never true 12/26/19 25 Within the past 12 months, t he food you bought just didn't last and you didn't have money to get more. Never true 12/26/2024 PRAPARE - Transportation Answer Date Re corded In the past 12 months, has l ack of transportation kept you from medical appointments or from getting medications? No 11/28 In the past 12 months, has l ack of transportation kept you from meetings, work, or from getting things needed for daily living? No 12/26/2024 Housing Stability Vital Sign Answer Willem e Recorded In the last 12 months, was t here a time when you were not able to pay the mortgage or rent on time? No 12/26/2024 In the past 12 months, how m any times have you moved where you were living? 0 12/26/2024 At any time in the past 12 m [facility], were you homeless or living in a retirement (including now)? No 12/26/2024 Comments No Sex and Gender Information Value Date Recorded Sex Assigned at Female 12/15/2024 11:06 AM POTATO INSPECTOR Legal Sex Female 11:03 AM POTATO INSPECTOR Gender Identity Not on file Sexual Orientation Not on file Last Filed Vital Signs Vital Sign Reading Time Taken Comments Blood Pressure 145/91 01/02/2025 9:07 PM POTATO INSPECTOR Pulse 66 01/02/2025 3:28 PM POTATO INSPECTOR Temperature 36.7 C (98.1 F) 01/02/2025 9:07 PM POTATO INSPECTOR Respiratory Rate 20 01/02/2025 9:07 PM POTATO INSPECTOR Oxygen Saturation 98% 01/02/2025 9:07 PM POTATO INSPECTOR Inhaled Oxygen Concentration - - Weight 80.2 kg (176 lb 12.9 oz) 01/01/2025 5:07 AM POTATO INSPECTOR Height 165.1 cm (5' 5 ) 12/25/2024 9:29 AM POTATO INSPECTOR Body Mass Index 29.42 12/25/2024 9:29 AM POTATO INSPECTOR Plan of Treatment Health Maintenance Due Date [...] maintain pain control Lifestyle Spencer Mckenzie RN Interventions Community Resource Recommendations Community Resource Services Recommended Domains Addressed Status Status Reason/Outcome Date/Time [facility] Financial Assistance Financial Resource Strain 12/26/2024 7:51 AM POTATO INSPECTOR [facility] Financial Assistance Financial Resource Strain 12/26/2024 7:51 AM POTATO INSPECTOR from Last 12 Months Procedures Procedure Name Priority Date/Time Associated Diagnosis Comments POCT GLUCOSE - HALL DOCKED DEVICE Routine 01/02/2025 8:00 PM POTATO INSPECTOR POCT GLUCOSE - HALL DOCKED DEVICE Routine 01/02/2025 3:30 PM POTATO INSPECTOR POCT GLUCOSE - HALL DOCKED DEVICE Routine 01/02/2025 11:09 AM POTATO INSPECTOR BASIC METABOLIC PANEL Routine 01/02/2025 9:18 AM POTATO INSPECTOR CBC W/DIFF AUTOMATED Routine 01/02/2025 9:18 AM POTATO INSPECTOR PROTHROMBIN TIME, VENOUS Routine 01/02/2025 9:18 AM POTATO INSPECTOR POCT GLUCOSE - HALL DOCKED DEVICE Routine 01/02/2025 6:00 AM POTATO INSPECTOR POCT GLUCOSE - HALL DOCKED DEVICE Routine 01/01/2025 7:55 PM POTATO INSPECTOR XR CHEST PORTABLE Today 01/01/2025 3:2 1 PM POTATO INSPECTOR POCT GLUCOSE - HALL DOCKED DEVICE Routine 01/01/2025 3:08 PM POTATO INSPECTOR POCT GLUCOSE - HALL DOCKED DEVICE Routine 01/01/2025 11:08 AM POTATO INSPECTOR BASIC METABOLIC PANEL Routine 01/01/2025 9:45 AM POTATO INSPECTOR CBC W/DIFF AUTOMATED Routine 01/01/2025 9:45 AM POTATO INSPECTOR POCT GLUCOSE - HALL DOCKED DEVICE Routine 01/01/2025 7:42 AM POTATO INSPECTOR PROTHROMBIN TIME, VENOUS Routine 01/01/2025 6:42 AM POTATO INSPECTOR POCT GLUCOSE - HALL DOCKED DEVICE Routine 01/01/2025 6:30 AM POTATO INSPECTOR POCT GLUCOSE - HALL DOCKED DEVICE Routine 12/31/2024 8:00 PM POTATO INSPECTOR POCT GLUCOSE - HALL DOCKED DEVICE Routine 12/31/2024 3:51 PM POTATO INSPECTOR POCT GLUCOSE - HALL DOCKED DEVICE Routine 12/31/2024 11:28 AM POTATO INSPECTOR BASIC METABOLIC PANEL Routine 12/31/2024 6:19 AM POTATO INSPECTOR CBC W/DIFF AUTOMATED Routine 12/31/2024 6:19 AM POTATO INSPECTOR PROTHROMBIN TIME, VENOUS Routine 12/31/2024 6:19 AM POTATO INSPECTOR POCT GLUCOSE - HALL DOCKED DEVICE Routine 12/31/2024 6:06 AM POTATO INSPECTOR POCT GLUCOSE - HALL DOCKED DEVICE Routine 12/30/2024 7:42 PM POTATO INSPECTOR XR CHEST PORTABLE Today 12/30/2024 3:4 3 PM POTATO INSPECTOR POCT GLUCOSE - HALL DOCKED DEVICE Routine 12/30/2024 3:38 PM POTATO INSPECTOR ECG 12-LEAD Routine 12/30/2024 2:00 PM POTATO INSPECTOR POCT GLUCOSE - HALL DOCKED DEVICE Routine 12/30/2024 11:14 AM POTATO INSPECTOR CBC W/DIFF AUTOMATED Routine 12/30/2024 9:20 AM POTATO INSPECTOR BASIC METABOLIC PANEL Routine 12/30/2024 9:20 AM POTATO INSPECTOR PRO-BRAIN NATRIURETIC PEPTIDE Routine 12/30/2024 6:43 AM POTATO INSPECTOR PROTHROMBIN TIME, VENOUS Routine 12/30/2024 6:43 AM POTATO INSPECTOR POCT GLUCOSE - HALL DOCKED DEVICE Routine 12/30/2024 6:09 AM POTATO INSPECTOR POCT GLUCOSE - HALL DOCKED DEVICE Routine 12/29/2024 8:56 PM POTATO INSPECTOR POCT GLUCOSE - HALL DOCKED DEVICE Routine 12/29/2024 3:27 PM POTATO INSPECTOR POCT GLUCOSE - HALL DOCKED DEVICE Routine 12/29/2024 11:35 AM POTATO INSPECTOR BASIC METABOLIC PANEL Routine 12/29/2024 6:17 AM POTATO INSPECTOR PROTHROMBIN TIME, VENOUS Routine 12/29/2024 6:17 AM POTATO INSPECTOR POCT GLUCOSE - HALL DOCKED DEVICE Routine 12/29/2024 6:06 AM POTATO INSPECTOR POCT GLUCOSE - HALL DOCKED DEVICE Routine 12/28/2024 8:08 PM POTATO INSPECTOR POCT GLUCOSE - HALL DOCKED DEVICE Routine 12/28/2024 3:19 PM POTATO INSPECTOR POCT GLUCOSE - HALL DOCKED DEVICE Routine 12/28/2024 3:15 PM POTATO INSPECTOR POCT GLUCOSE - HALL DOCKED DEVICE Routine 12/28/2024 12:02 PM POTATO INSPECTOR POCT GLUCOSE - HALL DOCKED DEVICE Routine 12/28/2024 11:18 AM POTATO INSPECTOR BASIC METABOLIC PANEL Routine 12/28/2024 7:27 AM POTATO INSPECTOR PROTHROMBIN TIME, VENOUS Routine 12/28/2024 7:27 AM POTATO INSPECTOR POCT GLUCOSE - HALL DOCKED DEVICE Routine 12/28/2024 6:03 AM POTATO INSPECTOR POCT GLUCOSE - HALL DOCKED DEVICE Routine 12/27/2024 8:04 PM POTATO INSPECTOR POCT GLUCOSE - HALL DOCKED DEVICE Routine 12/27/2024 3:19 PM POTATO INSPECTOR POCT GLUCOSE - HALL DOCKED DEVICE Routine 12/27/2024 11:28 AM POTATO INSPECTOR CBC, AUTO, NO DIFF Routine 12/27/2024 6: 32 AM POTATO INSPECTOR BASIC METABOLIC PANEL Routine 12/27/2024 6:32 AM POTATO INSPECTOR PROTHROMBIN TIME, VENOUS Routine 12/27/2024 6:32 AM POTATO INSPECTOR POCT GLUCOSE - HALL DOCKED DEVICE Routine 12/27/2024 5:48 AM POTATO INSPECTOR POCT GLUCOSE - HALL DOCKED DEVICE Routine 12/26/2024 8:31 PM POTATO INSPECTOR POCT GLUCOSE - HALL DOCKED DEVICE Routine 12/26/2024 3:42 PM POTATO INSPECTOR POCT GLUCOSE - HALL DOCKED DEVICE Routine 12/26/2024 10:43 AM POTATO INSPECTOR USE ECHOCARDIOGRAM W CON Today 12/26/2024 9:44 AM POTATO INSPECTOR POCT GLUCOSE - HALL DOCKED DEVICE Routine 12/26/2024 5:47 AM POTATO INSPECTOR INFLUENZA A & B Routine 12/26/2024 5:00 AM POTATO INSPECTOR PROTHROMBIN TIME, VENOUS Routine 12/26/2024 5:00 AM POTATO INSPECTOR HEMOGLOBIN, GLYCOSYLATED Routine 12/26/2024 5:00 AM POTATO INSPECTOR THYROID STIM HORMONE TSH Routine 12/26/2024 5:00 AM POTATO INSPECTOR MAGNESIUM Routine 12/26/2024 5:00 AM POTATO INSPECTOR COMPREHENSIVE METABOLIC PANEL Routine 12/26/2024 5:00 AM POTATO INSPECTOR CBC W/DIFF AUTOMATED Routine 12/26/2024 5:00 AM POTATO INSPECTOR POCT GLUCOSE - HALL DOCKED DEVICE Routine 12/25/2024 9:43 PM POTATO INSPECTOR PROTHROMBIN TIME, VENOUS Routine 12/25/2024 5:15 PM POTATO INSPECTOR PRO-BRAIN NATRIURETIC PEPTIDE Routine 12/25/2024 2:09 PM POTATO INSPECTOR PROCALCITONIN (PCT) Routine 12/25/2024 2 :09 PM POTATO INSPECTOR TROPONIN, QUANT STAT 12/25/2024 2:09 PM POTATO INSPECTOR ECG 12-LEAD STAT 12/25/2024 2:06 PM POTATO INSPECTOR XR CHEST PORTABLE STAT 12/25/2024 10: 32 AM POTATO INSPECTOR ECG 12-LEAD STAT 12/25/2024 10:10 AM POTATO INSPECTOR TROPONIN, QUANT STAT 12/25/2024 10:09 AM POTATO INSPECTOR COMPREHENSIVE METABOLIC PANEL STAT 12/25/2024 10:09 AM POTATO INSPECTOR CBC W/DIFF AUTOMATED STAT 12/25/2024 10:09 AM POTATO INSPECTOR POCT GLUCOSE - HALL DOCKED DEVICE Routine 12/19/2024 10:29 AM POTATO INSPECTOR PROTHROMBIN TIME, VENOUS Routine 12/19/2024 9:17 AM POTATO INSPECTOR HEPARIN, ANTI XA, UFH TIMED 12/19/2024 9:17 AM POTATO INSPECTOR POCT GLUCOSE - HALL DOCKED DEVICE Routine 12/19/2024 6:10 AM POTATO INSPECTOR HEPARIN, ANTI XA, UFH TIMED 12/19/2024 5:55 AM POTATO INSPECTOR FOLIC ACID SERUM Routine 12/19/2024 5:55 AM POTATO INSPECTOR VITAMIN B-12 Routine 12/19/2024 5:55 AM POTATO INSPECTOR IRON SAT PANEL (IRON,IBC,%SAT) Routine 12/19/2024 5:55 AM POTATO INSPECTOR FERRITIN Routine 12/19/2024 5:55 AM POTATO INSPECTOR RETICULOCYTE CT, AUTO Routine 12/19/2024 5:55 AM POTATO INSPECTOR CBC W/DIFF AUTOMATED Routine 12/19/2024 5:55 AM POTATO INSPECTOR BASIC METABOLIC PANEL Routine 12/19/2024 5:55 AM POTATO INSPECTOR MAGNESIUM Routine 12/19/2024 5:55 AM POTATO INSPECTOR HEPARIN, ANTI XA, UFH TIMED 12/18/2024 10:17 PM POTATO INSPECTOR POCT GLUCOSE - HALL DOCKED DEVICE Routine 12/18/2024 8:21 PM POTATO INSPECTOR HEPARIN, ANTI XA, UFH TIMED 12/18/2024 7:22 PM POTATO INSPECTOR POCT GLUCOSE - HALL DOCKED DEVICE Routine 12/18/2024 3:23 PM POTATO INSPECTOR CBC W/DIFF AUTOMATED Routine 12/18/2024 3:12 PM POTATO INSPECTOR HEPARIN, ANTI XA, UFH TIMED 12/18/2024 11:30 AM POTATO INSPECTOR POCT GLUCOSE - HALL DOCKED DEVICE Routine 12/18/2024 10:46 AM POTATO INSPECTOR PROTHROMBIN TIME, VENOUS STAT 12/18/2024 9:19 AM POTATO INSPECTOR PARTIAL THROMBOPLASTIN TIME,PTT STAT 12/18/2024 9:19 AM POTATO INSPECTOR POCT GLUCOSE - HALL DOCKED DEVICE Routine 12/18/2024 6:17 AM POTATO INSPECTOR MAGNESIUM Routine 12/18/2024 5:00 AM POTATO INSPECTOR BASIC METABOLIC PANEL Routine 12/18/2024 5:00 AM POTATO INSPECTOR CBC W/DIFF AUTOMATED Routine 12/18/2024 5:00 AM POTATO INSPECTOR PROTHROMBIN TIME, VENOUS Routine 12/18/2024 5:00 AM POTATO INSPECTOR POCT GLUCOSE - HALL DOCKED DEVICE Routine 12/17/2024 8:22 PM POTATO INSPECTOR POCT GLUCOSE - HALL DOCKED DEVICE Routine 12/17/2024 3:[address] SOFT TISSUE NECK WO CON NAYAN 12/17/2024 2:[address] HEAD WO CON NAYAN 12/17/2024 2:51 PM POTATO INSPECTOR POCT GLUCOSE - HALL DOCKED DEVICE Routine 12/17/2024 11:00 AM POTATO INSPECTOR MAGNESIUM Routine 12/17/2024 7:09 AM POTATO INSPECTOR BASIC METABOLIC PANEL Routine 12/17/2024 7:09 AM POTATO INSPECTOR CBC W/DIFF AUTOMATED Routine 12/17/2024 7:09 AM POTATO INSPECTOR PROTHROMBIN TIME, VENOUS Routine 12/17/2024 7:09 AM POTATO INSPECTOR POCT GLUCOSE - HALL DOCKED DEVICE Routine 12/16/2024 7:30 PM POTATO INSPECTOR POCT GLUCOSE - HALL DOCKED DEVICE Routine 12/16/2024 4:05 PM POTATO INSPECTOR POCT GLUCOSE - HALL DOCKED DEVICE Routine 12/16/2024 11:03 AM POTATO INSPECTOR PROTHROMBIN TIME, VENOUS Routine 12/16/2024 7:04 AM POTATO INSPECTOR MAGNESIUM Routine 12/16/2024 7:04 AM POTATO INSPECTOR COMPREHENSIVE METABOLIC PANEL Routine 12/16/2024 7:04 AM POTATO INSPECTOR CBC W/DIFF AUTOMATED Routine 12/16/2024 7:04 AM POTATO INSPECTOR POCT GLUCOSE - HALL DOCKED DEVICE Routine 12/16/2024 6:04 AM POTATO INSPECTOR HEMOGLOBIN AND HEMATOCRIT STAT 12/16/2024 12:46 AM POTATO INSPECTOR POCT GLUCOSE - HALL DOCKED DEVICE Routine 12/15/2024 8:06 PM POTATO INSPECTOR HEMOGLOBIN AND HEMATOCRIT STAT 12/15/2024 5:36 PM POTATO INSPECTOR XR PELVIS MIN 3V Today 12/15/2024 3:57 PM POTATO INSPECTOR POCT GLUCOSE - HALL DOCKED DEVICE Routine 12/15/2024 2:51 PM POTATO INSPECTOR XR HIP PHYLLIS 2V+PELVIS STAT 12/15/2024 12:[address] CERV SPINE WO CON STAT 12/15/2024 12:[address] HEAD WO CON STAT 12/15/2024 12:11 PM POTATO INSPECTOR BASIC METABOLIC PANEL STAT 12/15/2024 12:00 PM POTATO INSPECTOR PARTIAL THROMBOPLASTIN TIME,PTT STAT 12/15/2024 12:00 PM POTATO INSPECTOR PROTHROMBIN TIME, VENOUS STAT 12/15/2024 12:00 PM POTATO INSPECTOR CBC W/DIFF AUTOMATED STAT 12/15/2024 12:00 PM POTATO INSPECTOR from Last 3 Months Results * (ABNORMAL) POCT glucose (01/02/2025 8:00 PM POTATO INSPECTOR) Only the most recent of51 resultswithin the time period is included. GLUCOSE POC 129(H) 70 - 99 mg/dL 01/02/2025 8:33 PM POTATO INSPECTOR [facility] 01/02/2025 8:00 PM POTATO INSPECTOR us Gabbi Hicks MD POCT ORDERABLES - DEVICE Final Result [facility] [address] [employer] [address], [place] [phone] * (ABNORMAL) PROTIME/INR, VENOUS (01/02/2025 9:18 AM POTATO INSPECTOR) Only the most recent of15 resultswithin the time period is included. PROTIME 32.8(H) 10.2 - 12.9 SEC 01/02/2025 10:26 AM POTATO INSPECTOR [facility] INR 2.9 01/02/2025 10:26 AM [facility] Comment: Recommended INR Therapeutic Goals: 2.0-3.0 Routine Therapy 2.5-3.5 Mechanical Prosthetic Valves (High Risk) 01/02/2025 9:18 AM POTATO INSPECTOR Skylar Muñoz MD LABORATORY Final Resu lt [facility] [address] [place] [address], [place] [phone] * (ABNORMAL) BASIC METABOLIC PANEL (01/02/2025 9:18 AM POTATO INSPECTOR) Only the most recent of11 resultswithin the time period is included. Pathologist [facility] GLUCOSE 156(H) 70 - 99 MG/DL 01/02/2025 10:29 AM [facility] BUN 52(H) 7 - 18 MG/DL 01/02/2025 10:29 AM [facility] CREATININE S/P/B 2.42(H) 0.55 - 1.02 MG/DL 01/02/2025 10:29 AM [facility] SODIUM S/P/B 137 136 - 145 MMOL/L 01/02/2025 10:29 AM [facility] POTASSIUM S/P/B 4.1 3.5 - 5.1 MMOL/L 01/02/2025 10:29 AM [facility] CHLORIDE S/P/B 104 97 - 115 MMOL/L 01/02/2025 10:29 AM [facility] CO2 28.4 21 - 32 MMOL/L 01/02/2025 10:29 AM [facility] CALCIUM S/P/B 9.5 8.5 - 10.1 MG/DL 01/02/2025 10:29 AM [facility] ANION GAP 4.6 2 - 10 MMOL/L 01/02/2025 10:29 AM [facility] BUN CREATININE RATIO 21.5 6 - 26 01/02/2025 10:29 AM [facility] GFR ESTIMATE 20(L) >90 ML/MIN/1.7 3 M2 01/02/2025 10:29 AM [facility] Comment: NOTE: eGFR is not calculated for patients <18 years of age or gender unknown. This is an estimated GFR calculation using the new CKD EPI creatinine equation without race and so does not require a correction factor for race. This estimated GFR should not be used for calculating drug doses. 01/02/2025 9:18 AM POTATO INSPECTOR us Gabbi Hicks MD LABORATORY Final Res ult [facility] [address] [place] [address], * (ABNORMAL) CBC W/DIFF AUTOMATED (01/02/2025 9:18 AM POTATO INSPECTOR) Only the most recent of12 resultswithin the time period is included. WBC 10.07 4.5 - 11.0 x10'3/uL 01/02/2025 9:42 AM [facility] RBC 3.55(L) 4.20 - 5.40 x10'6/uL 01/02/2025 9:42 AM [facility] HGB 11.2(L) 12.0 - 16.0 G/DL 01/02/2025 9:42 AM [facility] HCT 35.9(L) 38.0 - 48.0 % 01/02/2025 9:42 AM [facility] MCV 101.1(H) 81.0 - 99.0 FL 01/02/2025 9:42 AM [facility] MCH 31.5(H) 27.0 - 31.0 PG 01/02/2025 9:42 AM [facility] MCHC 31.2(L) 32.0 - 36.0 G/DL 01/02/2025 9:42 AM [facility] RDW 16.9(H) 11.5 - 14.5 % 01/02/2025 9:42 AM [facility] PLT 195 130 - 400 x10'3/uL 01/02/2025 9:42 AM [facility] MPV 9.8 9.3 - 12.2 FL 01/02/2025 9:42 AM [facility] DIFFERENTIAL TYPE AUTOMATED DIFFERENTIAL 01/02/2025 9:42 AM [facility] NEUTROPHILS % 80.2 % 01/02/2025 9:42 AM [facility] LYMPHOCYTES % 7.2 % 01/02/2025 9:42 AM [facility] MONOCYTES % 10.1 % 01/02/2025 9:42 AM [facility] EOSINOPHILS 1.1 % 01/02/2025 9:42 AM [facility] BASOPHILS 0.3 % 01/02/2025 9:42 AM [facility] IMMATURE GRANS % 1.1 % 01/02/20 25 9:42 AM [employer] [facility] ABS. NEUTROPHILS 8.07(H) 1.80 - 7.70 x10'3/uL 01/02/2025 9:42 AM [employer] [facility] ABS. LYMPHOCYTES 0.73(L) 1.00 - 4.80 x10'3/uL 01/02/2025 9:42 AM [employer] [facility] ABS. MONOCYTES 1.02(H) 0.24 - 0.86 x10'3/uL 01/02/2025 9:42 AM [employer] [facility] ABS. EOSINOPHILS 0.11 0.04 - 0.36 x10'3/uL 01/02/2025 9:42 AM [employer] [facility] ABS. BASOPHILS 0.03 0.01 - 0.08 x10'3/uL 01/02/2025 9:42 AM [employer] [facility] ABS. IMMATURE GRANULOCYTES 0.11 0.00 - 0.49 x10'3/uL 01/02/2025 9:42 AM [employer] [facility] 01/02/2025 9:18 AM [employer] us Gabbi Hicks MD LABORATORY Final Res ult [facility] [address] [place] [address], * XR CHEST PORTABLE (01/01/2025 3:21 PM [employer] INSPECTOR) Only the most recent of3 resultswithin the time period is included. Anatomical Region Laterality Modality Chest Radiographic Kristine ging 01/01/2025 4:01 PM [employer] Impressions 01/01/2025 4:05 PM [employer] INSPECTOR Impression: Stable chest. Referred By: Interpreted By: David Hanson MD, 01/01/2025 4:01 PM Narrative 01/01/2025 4:05 PM [employer] [address] [address] Examination: Chest 1 view portable History: Shortness of breath DATE/TIME: 01/01/2025 2:56 PM Comparison: December 30, 2024 Technique: AP upright portable view of the chest was obtained. Findings: Cardiac pacemaker. Valve prosthesis. Sternotomy. Cardiomegaly. Pulmonary vascular upper limits of normal. Minimal bibasilar opacity, nonspecific and grossly stable from the recent prior exam. No pneumothorax. No pleural effusion. No significant interval change. Procedure Note David Hanson MD - 01/01/[address] [address] Examination: Chest 1 view portable History: Shortness of breath DATE/TIME: 01/01/2025 2:56 PM Comparison: December 30, 2024 Technique: AP upright portable view of the chest was obtained. Findings: Cardiac pacemaker. Valve prosthesis. Sternotomy.Cardiomegaly. Pulmonary vascular upper limits of normal. Minimalbibasilar opacity, nonspecific and grossly stable from the recent priorexam. No pneumothorax. No pleural effusion. No significant intervalchange. Impression: Stable chest. Referred By: Interpreted By: David Hanson MD, 01/01/2025 4:01 PM us Gabbi Hicks MD GENERAL IMAGING Final Res ult * ECG 12 lead (12/30/2024 2:00 PM POTATO INSPECTOR) Only the most recent of3 resultswithin the time period is included. 12/30/2024 2:00 PM POTATO INSPECTOR Narrative [facility] ([place] RAD - 12/30/2024 11:[address] [facility] [facility] Test Date: 2024-12-30 Pat Name: KAY MCCULLOUGH Department: 40 Room: [id number] Gender: Female Residential Energy Auditor: [facility] : 1945 Requested By: VIVIANA RODRIGUEZ Order Number: [id number] Reading : Paramjit Callejas Measurements Intervals [place] Rate: 65 P: 0 NH: 0 QRS: -13 QRSD: 182 T: 144 QT: 499 QTc: 519 Interpretive Statements ELECTRONIC VENTRICULAR PACEMAKER ABNORMAL RHYTHM ECG Compared to ECG 12/25/2024 14:06:21 No significant changes TO INSPECTOR Procedure Note Paramjit Callejas MD - 12/30/[address] [facility] Test Date: 2024-12-30 [facility] Department: 40 Room: [id number] Gender: Female Residential Energy Auditor: [facility] : 1945 Requested By: VIVIANA RODRIGUEZ Order Number: [id number] Reading : Paramjit Callejas Measurements Intervals [place] Rate: 65 P: 0 NH: 0 QRS: -13 QRSD: 182 T: 144 QT: 499 QTc: 519 Interpretive Statements ELECTRONIC VENTRICULAR PACEMAKER ABNORMAL RHYTHM ECG Compared to ECG 12/25/2024 14:06:21 No significant changes TO INSPECTOR us Viviana Rodriguez DECATING MACHINE OPERATOR ECG ORDERABLES Final Result [facility] ([place]) RAD * (ABNORMAL) PRO-BRAIN NATRIURETIC PEPTIDE (12/30/2024 6:43 AM POTATO INSPECTOR) Only the most recent of2 resultswithin the time period is included. PRO-B TYPE NATRIURETIC PEPTIDE 2,963(H) <450 PG/ML 12/30/2024 2:51 PM POTATO INSPECTOR [facility] Comment: CUT POINTS ESTABLISHED BY INTERNATIONAL [employer]LL[employer] ON NT PROBNP (ICON) STUDY (2006). AGE INDEPENDENT: <300 PG/ML HAS A 99% NEGATIVE PREDICTIVE VALUE FOR EXCLUDING ACUTE CHF <50 YEARS: >450 PG/ML IS CONSISTENT WITH ACUTE CHF 50-75 YEARS: >900 PG/ML IS CONSISTENT WITH ACUTE CHF >75 YEARS: >1800 PG/ML IS CONSISTENT WITH ACUTE CHF IN PATIENTS WITH RENAL INSUFFICIENCY (GFR <60), >1200 PG/ML YIELDS A DIAGNOSTIC SENSITIVITY AND SPECIFICITY OF 89% AND 72% FOR ACUTE CHF. 12/30/2024 6:43 AM POTATO INSPECTOR Viviana Rodriguez NP LABORATORY Final Result [facility] [address] [place] [address], * (ABNORMAL) CBC, AUTO, NO DIFF (12/27/2024 6:32 AM POTATO INSPECTOR) WBC 6.50 4.5 - 11.0 x10'3/uL 12/27/2024 7:02 AM [facility] RBC 3.23(L) 4.20 - 5.40 x10'6/uL 12/27/2024 7:02 AM [facility] HGB 10.2(L) 12.0 - 16.0 G/DL 12/27/2024 7:02 AM [facility] HCT 32.2(L) 38.0 - 48.0 % 12/27/2024 7:02 AM [facility] MCV 99.7(H) 81.0 - 99.0 FL 12/27/2024 7:02 AM [facility] MCH 31.6(H) 27.0 - 31.0 PG 12/27/2024 7:02 AM [facility] MCHC 31.7(L) 32.0 - 36.0 G/DL 12/27/2024 7:02 AM POTATO INSPECTOR [facility] RDW 16.7(H) 11.5 - 14.5 % 12/27/2024 7:02 AM POTATO INSPECTOR [facility] PLT 172 130 - 400 x10'3/uL 12/27/2024 7:02 AM POTATO INSPECTOR [facility] MPV 9.7 9.3 - 12.2 FL 12/27/2024 7:02 AM POTATO INSPECTOR [facility] 12/27/2024 6:32 AM POTATO INSPECTOR Joe Flores MD LABORATORY Final Resul t [facility] [address] [place] [address], * USE ECHOCARDIOGRAM W CON (12/26/2024 9:44 AM POTATO INSPECTOR) Anatomical Region Laterality Modality NA Echocardiogram 12/26/2024 9:02 AM POTATO INSPECTOR Narrative 12/26/2024 11:41 AM POTATO INSPECTOR Echocardiography Report Pat.Name: KAY MCCULLOUGH Pat.ID: [id number] .Date: 12/26/2024 Exam Time: 9:02:00 AM Study Type:ECHO WITH CARDIAC DOPPLER COMP Height: 64 in Weight: 199 lb BSA: 1.95 m2 Age: 6 1945,79Y Sex: F BP: 168/83 HR: 65 bpm Sonogrphr: Megan Clarke Pat. Stat.:Inpatient Room: 443 Reason for Study:Congestive heart failure Procedures: 2D, M-mode, Doppler, Color Flow, Definity was used to enhance endocardial definition. The study quality is technically difficult. 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 The left ventricular systolic function is hyperdynamic. Mild to moderate concentric left ventricular hypertrophy. Left ventricular diastolic function is not reliably assessed due to mitral valve replacement. RV: The right ventricular size is moderately to severely enlarged. IVS: Septal flattening demonstrated in both diastole and systole. Abnormal septal motion is noted. LA: The left atrium was not well visualized in all views. RA: Right atrial size is markedly dilated. IAS: Atrial septum is poorly visualized. TAMI: No evidence of pericardial effusion. AO: Aorta not well visualized. SVn: Inferior vena cava is not assessable. Other: Technically difficult exam due to body habitus / patient postioning. AV: Mild to moderate aortic valve stenosis. The peak velocity across the aortic valve measures 3m/sec with a peak gradient of 36mmHg and a mean gradient of 17mmHg. The calculated aortic valve area is 1.7-1.8cm2. No evidence of aortic valve regurgitation. The aortic valve not well visualized. MV: Cannot exclude prosthetic mitral valve regurgitation. No evidence of prosthetic mitral valve stenosis. PV: Trace pulmonic regurgitation. No evidence of pulmonic valve stenosis. Pulmonic valve not well visualized. TV: Moderate to severe tricuspid regurgitation. Right ventricular systolic pressure is 46 mmHg + RAP suggestive of moderate to severe pulmonary hypertension. No evidence of tricuspid valve stenosis. ++++++++++++++++++++++++++++++++++++ MEASUREMENTS: ++++++++++++++++++++++++++++++++++++ DOPPLER LVOT LVOTpkPG 10 mmHg LVOTmnPG 5 mmHg LVOTpkVel 159 cm/s (70-110)* LVOT SV 97 ml LVOT TVI 30.8 cm AV Forward Flow AV TVI 53 cm AV pkPG 36 mmHg AV pkVel 300 cm/s (100-170)+* Area (TVI) 1.82 cm2 (3-5)* AV mnPG 17 mmHg Area (Wero) 1.66 cm2 (3-5)* MV Forward Flow MV DeTm 142 msec MV pkPG 8 mmHg MV mnPG 2 mmHg MV pkE 127 cm/s (60-130)+ PV Forward Flow PV pkVel 84.2 cm/s (60-90) PV AC 148 msec PV pkPG 3 mmHg TV Regurg Flow TV pkPG 46 mmHg TV pkVel 339 cm/s (30-70)* Aortic Valve Aortic Valve Ar 0.93 Aortic Valve Ve 0.53 PV Antegrade Flow Acceleration Sl 544 cm/s2 Right Atrium Hinojosa's Disk 20 Right Ventricle Right Ventricle 5.02 cm/s 2D Left Ventricle LVIDd 4.4 cm (3.6-5.2) LVIDs 2.5 cm (2.3-3.9) LVPW LVPWd 1.2 cm Ventricular Septum IVSd 1.4 cm Left Atrium LA a-p 5.4 cm (2.8-3.4)* LVOT LVOT 2 cm LVOTArea 3.14 cm2 Ratios IVS RA Single Plane Right Atrium MO 22.6 mm Right Atrium Sy 100 ml Right Atrium Sy 61.7 mm Right Atrium Sy 51.3 ml/m2 Right Atrium Sy 27.7 cm2 Right Ventricle Right Ventricle 58 mm Right Ventricle 48 mm Major [place] 82 mm MMODE TA Tricuspid Annul 10.7 mm <Electronic Signature> 12/26/2024 11:41 AM Ming Mclean M.D. Procedure Note Ming Mclean MD - 12/26/2024 Echocardiography Report Pat.Name: KAY MCCULLOUGH Casandra.ID: [id number] .Date: 12/26/2024 Exam Time: 9:02:00 AM Study Type:ECHO WITH CARDIAC DOPPLER COMP Height: 64 in Weight: 199 lb BSA: 1.95 m2 Age: 6 1945,79Y Sex: F BP: 168/83 HR: 65 bpm Sonogrphr: Megan Clarke. Stat.:Inpatient Room: 443 Reason for Study:Congestive heart failure Procedures: 2D, M-mode, Doppler, Color Flow, Definity was used to enhance endocardial definition. The study quality is technically difficult. 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 The left ventricular systolic function is hyperdynamic. Mild to moderate concentric left ventricular hypertrophy. Left ventricular diastolic function is not reliably assessed due to mitral valve replacement. RV: The right ventricular size is moderately to severely enlarged. IVS: Septal flattening demonstrated in both diastole and systole. Abnormal septal motion is noted. LA: The left atrium was not well visualized in all views. RA: Right atrial size is markedly dilated. IAS: Atrial septum is poorly visualized. TAMI: No evidence of pericardial effusion. AO: Aorta not well visualized. SVn: Inferior vena cava is not assessable. Other: Technically difficult exam due to body habitus / patient postioning. AV: Mild to moderate aortic valve stenosis. The peak velocity across the aortic valve measures 3m/sec with a peak gradient of 36mmHg and a mean gradient of 17mmHg. The calculated aortic valve area is 1.7-1.8cm2. No evidence of aortic valve regurgitation. The aortic valve not well visualized. MV: Cannot exclude prosthetic mitral valve regurgitation. No evidence of prosthetic mitral valve stenosis. PV: Trace pulmonic regurgitation. No evidence of pulmonic valve stenosis. Pulmonic valve not well visualized. TV: Moderate to severe tricuspid regurgitation. Right ventricular systolic pressure is 46 mmHg + RAP suggestive of moderate to severe pulmonary hypertension. No evidence of tricuspid valve stenosis. ++++++++++++++++++++++++++++++++++++ MEASUREMENTS: ++++++++++++++++++++++++++++++++++++ DOPPLER LVOT LVOTpkPG 10 mmHg LVOTmnPG 5 mmHg LVOTpkVel 159 cm/s (70-110)* LVOT SV 97 ml LVOT TVI 30.8 cm AV Forward Flow AV TVI 53 cm AV pkPG 36 mmHg AV pkVel 300 cm/s (100-170)+* Area (TVI) 1.82 cm2 (3-5)* AV mnPG 17 mmHg Area (Wero) 1.66 cm2 (3-5)* MV Forward Flow MV DeTm 142 msec MV pkPG 8 mmHg MV mnPG 2 mmHg MV pkE 127 cm/s (60-130)+ PV Forward Flow PV pkVel 84.2 cm/s (60-90) PV AC 148 msec PV pkPG 3 mmHg TV Regurg Flow TV pkPG 46 mmHg TV pkVel 339 cm/s (30-70)* Aortic Valve Aortic Valve Ar 0.93 Aortic Valve Ve 0.53 PV Antegrade Flow Acceleration Sl 544 cm/s2 Right Atrium Hinojosa's Disk 20 Right Ventricle Right Ventricle 5.02 cm/s 2D Left Ventricle LVIDd 4.4 cm (3.6-5.2) LVIDs 2.5 cm (2.3-3.9) LVPW LVPWd 1.2 cm Ventricular Septum IVSd 1.4 cm Left Atrium LA a-p 5.4 cm (2.8-3.4)* LVOT LVOT 2 cm LVOTArea 3.14 cm2 Ratios IVS RA Single Plane Right Atrium MO 22.6 mm Right Atrium Sy 100 ml Right Atrium Sy 61.7 mm Right Atrium Sy 51.3 ml/m2 Right Atrium Sy 27.7 cm2 Right Ventricle Right Ventricle 58 mm Right Ventricle 48 mm Major [place] 82 mm MMODE TA Tricuspid Annul 10.7 mm <Electronic Signature> 12/26/2024 11:41 AM Ming Mclean M.D. Anabell GOSS-Lashonda ECHO Final Result * (ABNORMAL) HEMOGLOBIN, GLYCATED (12/26/2024 5:00 AM POTATO INSPECTOR) HGB A1C 7.2(H) <5.7 % 12/26/2024 8:38 AM POTATO INSPECTOR [facility] Comment: ADA GUIDELINES 2010 5.7 TO 6.4% INCREASED RISK OF DIABETES > OR = 6.5% CONSISTENT WITH DIABETES ESTIMATED AVG GLUCOSE 160 mg/dL 12/26/2024 8:38 AM POTATO INSPECTOR [facility] 12/26/2024 5:00 AM POTATO INSPECTOR Anabell Daniel PA-C LABORATORY Final Result [facility] [address] [place] [address], * INFLUENZA A & B, RAPID (12/26/2024 5:00 AM POTATO INSPECTOR) Pathologist [facility] SPECIMEN TYPE NASAL 12/26/2024 5:30 AM POTATO INSPECTOR [facility] INFLUENZA A NEGATIVE NEGATIVE 12/26/2024 6:05 AM POTATO INSPECTOR [facility] INFLUENZA B NEGATIVE NEGATIVE 12/26/2024 6:05 AM [facility] Comment: Interpretation: Negative for Influenza A and B. A negative result does not exclude influenza virus infection. If influenza is circulating in your community, a diagnosis of influenza should be considered based on a patient's clinical presentation and empiric antiviral treatment should be considered, if indicated. If more conclusive testing is needed for hospitalized inpatients, follow-up confirmatory testing with RT-PCR requires a separate order. NASAL STRUCTURE / Unknown 12/26/2024 5:00 AM POTATO INSPECTOR Adriana Boudreaux MD MICROBIOLOGY - GENERAL O RDERABLES Final Result [facility] [address] [place] [address], * (ABNORMAL) COMPREHENSIVE METABOLIC PANEL (12/26/2024 5:00 AM POTATO INSPECTOR) Only the most recent of3 resultswithin the time period is included. GLUCOSE 113(H) 70 - 99 MG/DL 12/26/2024 6:13 AM [facility] BUN 58(H) 7 - 18 MG/DL 12/26/2024 6:13 AM [facility] CREATININE S/P/B 1.60(H) 0.55 - 1.02 MG/DL 12/26/2024 6:13 AM [facility] SODIUM S/P/B 142 136 - 145 MMOL/L 12/26/2024 6:13 AM [facility] POTASSIUM S/P/B 3.7 3.5 - 5.1 MMOL/L 12/26/2024 6:13 AM [facility] CHLORIDE S/P/B 108 97 - 115 MMOL/L 12/26/2024 6:13 AM [facility] CO2 32.4(H) 21 - 32 MMOL/L 12/26/2024 6:13 AM [facility] CALCIUM S/P/B 10.1 8.5 - 10.1 MG/DL 12/26/2024 6:13 AM [facility] BILIRUBIN TOTAL S/P/B 1.0 0.2 - 1.2 MG/DL 12/26/2024 6:13 AM [facility] Comment: THIS ASSAY IS NOT RECOMMENDED FOR PATIENTS UNDERGOING TREATMENT WITH ELTROMBOPAG DUE TO THE POTENTIAL FOR FALSELY ELEVATED RESULTS. TOTAL PROTEIN S/P/B 6.0(L) 6.4 - 8.2 G/DL 12/26/2024 6:13 AM [facility] ALBUMIN S/P/B 2.8(L) 3.4 - 5.0 G/DL 12/26/2024 6:13 AM [facility] AST 24 15 - 37 U/L 12/26/2024 6:13 AM [facility] ALT 21 14 - 55 U/L 12/26/2024 6:13 AM [facility] ALKALINE PHOSPHATASE S/P/B 59 50 - 136 U/L 12/26/2024 6:13 AM [facility] ANION GAP 1.6(L) 2 - 10 MMOL/L 12/26/2024 6:13 AM [facility] BUN CREATININE RATIO 36.2(H) 6 - 26 12/26/2024 6:13 AM [facility] A/G RATIO 0.9(L) 1.0 - 2.0 RATIO 12/26/2024 6:13 AM [facility] GFR ESTIMATE 32(L) >90 ML/MIN/1.7 3 M2 12/26/2024 6:13 AM [facility] Comment: NOTE: eGFR is not calculated for patients <18 years of age or gender unknown. This is an estimated GFR calculation using the new CKD EPI creatinine equation without race and so does not require a correction factor for race. This estimated GFR should not be used for calculating drug doses. 12/26/2024 5:00 AM POTATO INSPECTOR us Anabell Daniel PA-C LABORATORY Final Result [facility] [address] [place] [address], * THYROID STIM HORMONE, TSH (12/26/2024 5:00 AM POTATO INSPECTOR) TSH 0.479 0.358 - 3.74 uIU/ML 12/26/2024 6:13 AM POTATO INSPECTOR [facility] Comment: HIGH DOSES OF BIOTIN MAY INTERFERE WITH THIS TEST RESULT. CORRELATION TO CLINICAL HISTORY AND PRESENTATION RECOMMENDED. 12/26/2024 5:00 AM POTATO INSPECTOR [facility] [place]-C LABORATORY Final Result Performing Organization Address City/[facility] Co de Phone Number [facility] [address] [place] [address], * MAGNESIUM (12/26/2024 5:00 AM POTATO INSPECTOR) Only the most recent of5 resultswithin the time period is included. MAGNESIUM 2.4 1.8 - 2.4 MG/DL 12/26/2024 6:13 AM POTATO INSPECTOR [facility] 12/26/2024 5:00 AM POTATO INSPECTOR [facility] PA-C LABORATORY Final Result [facility] [address] [place] [address], * PROCALCITONIN (PCT) (12/25/2024 2:09 PM POTATO INSPECTOR) Procalcitonin 0.06 0.00 - 0.49 NG/ML 12/25/2024 7:26 PM POTATO INSPECTOR [facility] 12/25/2024 2:09 PM POTATO INSPECTOR Anabell Daniel PA-C LABORATORY Final Result Performing Organization Address City/[facility] Co de Phone Number [facility] [address] [place] [address], [place] [phone] * TROPONIN, QUANT (12/25/2024 2:09 PM POTATO INSPECTOR) Only the most recent of2 resultswithin the time period is included. TROPONIN I HIGH SENSITIVITY 51 <54 ng/L 12/25/2024 2:53 PM POTATO INSPECTOR [facility] Comment: HIGH DOSES OF BIOTIN, TROPONIN-SPECIFIC AUTOANTIBODIES, AND ANTIBODY THERAPY CONTAINING HAMA MAY INTERFERE WITH THIS TEST RESULT. CORRELATION TO CLINICAL HISTORY AND PRESENTATION RECOMMENDED. 12/25/2024 2:09 PM POTATO INSPECTOR Hallie Marr NP LABORATORY Final Result Performing Organization Address [facility] [place]/[facility] Co de Phone Number [facility] [address] [place] [address], * HEPARIN, ANTI XA, UFH (12/19/2024 9:17 AM POTATO INSPECTOR) Only the most recent of5 resultswithin the time period is included. HEPARIN ANTI XA UFH 0.40 0.30 - 0.70 IU/ML 12/19/2024 10:06 AM POTATO INSPECTOR [facility] Comment: UFH Therapeutic Anti Xa Ranges: Medical Therapeutic Range: 0.30 - 0.70 IU/mL Cardiac Therapeutic Range: 0.30 - 0.50 IU/mL Neuro Therapeutic Range: 0.20 - 0.40 IU/mL 12/19/2024 9:17 AM POTATO INSPECTOR Jeff Nava MD LABORATORY Final Result Performing Organization Address City/[facility]/ZIP Co de Phone Number [facility] [address] [place] [address], [place] [phone] * (ABNORMAL) IRON SAT PANEL (IRON,IBC,%SAT) (12/19/2024 5:55 AM POTATO INSPECTOR) IRON 41(L) 50.0 - 170.0 MCG/DL 12/19/2024 7:21 AM POTATO INSPECTOR [facility] IRON BINDING CAPACITY 346 250 - 450 MCG/DL 12/19/2024 7:21 AM POTATO INSPECTOR [facility] IRON SATURATION 12(L) 20 - 55 % 7:21 AM [facility] 12/19/2024 5:55 AM POTATO INSPECTOR us Jeff Nava MD LABORATORY Final Result [facility] [address] [place] [address], [place] [phone] * (ABNORMAL) VITAMIN B-12 (12/19/2024 5:55 AM POTATO INSPECTOR) [facility] VITAMIN B12 S/P/B 187(L) 254 - 1,320 PG/ML 12/19/2024 7:25 AM POTATO INSPECTOR [facility] 12/19/2024 5:55 AM POTATO INSPECTOR us Jeff Nava MD LABORATORY Final Result [facility] [address] [place] [address], [place] [phone] * (ABNORMAL) RETICULOCYTE CT, AUTO (12/19/2024 5:55 AM POTATO INSPECTOR) [facility] RETICULOCYTE COUNT 3.5(H) 0.8 - 2.1 % 12/19/2024 6:33 AM POTATO INSPECTOR [facility] ABSOLUTE RETICULOCYTE 0.10 0.02 - 0.10 x10'6/uL 12/19/2024 6:33 AM POTATO INSPECTOR [facility] IMMATURE RETIC FRACTION 29.3(H) 3.0 - 15.9 % 12/19/2024 6:33 AM POTATO INSPECTOR [facility] RETIC HGB 33.3 28.0 - 35.0 PG 12/19/2024 6:33 AM POTATO INSPECTOR [facility] 12/19/2024 5:55 AM POTATO INSPECTOR us Jeff Nava MD LABORATORY Final Result Performing Organization Address [facility] [place]/[facility] Co de Phone Number [facility] [address] [place] [address], [place] [phone] * FOLIC ACID SERUM (12/19/2024 5:55 AM POTATO INSPECTOR) FOLATE 14.9 3.1 - 17.5 NG/ML 12/19/2024 7:25 AM POTATO INSPECTOR [facility] 12/19/2024 5:55 AM POTATO INSPECTOR us Jeff Nava MD LABORATORY Final Result Performing Organization Address City/[facility] Co de Phone Number [facility] [address] [place] [address], [place] [phone] * FERRITIN (12/19/2024 5:55 AM POTATO INSPECTOR) FERRITIN 139.6 8.0 - 388.0 NG/ML 12/19/2024 7:25 AM POTATO INSPECTOR [facility] 12/19/2024 5:55 AM POTATO INSPECTOR us Jeff Nava MD LABORATORY Final Result [facility] [address] [place] [address], [place] [phone] * PARTIAL THROMBOPLASTIN TIME,PTT (12/18/2024 9:19 AM POTATO INSPECTOR) Only the most recent of2 resultswithin the time period is included. PTT 32.3 25.1 - 36.5 SEC 12/18/2024 9:53 AM POTATO INSPECTOR [facility] 12/18/2024 9:19 AM POTATO INSPECTOR us Jeff Nava MD LABORATORY Final Result Performing Organization Address City/[facility] Co de Phone Number [facility] [address] [place] [address], [place] [phone] * CT SOFT TISSUE NECK WO CON (12/17/2024 2:51 PM POTATO INSPECTOR) Anatomical Region Laterality Modality Neck Computed Tomogra phy 12/17/2024 3:24 PM POTATO INSPECTOR Impressions 12/17/2024 3:30 PM POTATO INSPECTOR IMPRESSION: 1. Hematoma within the right parietal occipital scalp, decreased in size compared to the prior head CT 12/15/2024. 2. Soft tissue swelling dorsal to the right sternocleidomastoid muscle and right paraspinal muscles extending from the skull base to the supraclavicular region, increased in prominence compared to the prior cervical spine CT of 12/15/2024. 3. Prominent carotid artery calcification. Further evaluation with nonemergent ultrasound or CT angiogram is recommended. 4. Pacemaker prior median sternotomy. Referred By: Interpreted By: Binh Paris MD, 12/17/2024 3:24 PM Narrative 12/17/2024 3:30 PM POTATO INSPECTOR [facility] [address] [place], [place] [address] EXAMINATION:Neck soft tissue CT without contrast 12/17/2024 INDICATION:Right scalp and neck hematoma TECHNIQUE: Axial CT images of the neck were acquired without intravenous contrast. Sagittal coronal reformats were constructed. Radiation dose reduction techniques were used. COMPARISON: CT the cervical spine the 12/15/2024, head CT 12/15/2024 FINDINGS:There is a hematoma within the right temporal parietal occipital scalp measuring 6.8 x 1.1 x 5.4 cm in the CC, AP and transverse dimensions, decreased in size compared to the prior CTs. There is a mild cerebral atrophy with concordant prominence of ventricles. Paranasal sinuses and mastoid air cells are clear. There is straightening of the normal cervical lordosis. Mild degenerative changes noted at the cervical spine. Median sternotomy wires are noted. The parotid and submandibular glands are unremarkable. Thyroid gland is unremarkable. There are cavity and tongue are unremarkable. The nasopharynx oropharynx and hypopharynx are unremarkable. No prevertebral edema or retropharyngeal fluid collection. The vallecula epiglottis and piriform sinuses are unremarkable. The larynx, trachea and upper esophagus are unremarkable. Calcification is noted near the carotid bifurcations. No pathologically enlarged or necrotic cervical lymph nodes. There is soft tissue swelling, fat stranding and induration posterior to the right sternocleidomastoid muscle in the right paraspinal muscles staining from the skull base to the supraclavicular region. No discrete 7 neck mass or encapsulated fluid collection within the limits of a noncontrast CT. There is artifact from pacemaker the anterior upper left chest wall. No acute abnormality the visualized lung apices. Procedure Note Binh Paris MD - 12/17/2024 [facility] [address] [place], [place] [address] EXAMINATION:Neck soft tissue CT without contrast 12/17/2024 [...] By: Binh Paris MD, 12/17/2024 3:24 PM us Jeff Nava MD CT Final Result * CT HEAD WO CON (12/17/2024 2:51 PM POTATO INSPECTOR) Only the most recent of2 resultswithin the time period is included. Anatomical Region Laterality Modality Head Computed Tomogra phy 12/17/2024 3:30 PM POTATO INSPECTOR Impressions 12/17/2024 3:34 PM POTATO INSPECTOR IMPRESSION: 1. Large hematoma within the upper right parietal scalp, not significantly changed in size. No depressed skull fracture. 2. Mild cerebral atrophy. 3. 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 4. No acute intracranial hemorrhage or mass effect. Referred By: Interpreted By: Binh Paris MD, 12/17/2024 3:30 PM Narrative 12/17/2024 3:34 PM POTATO INSPECTOR [place] [address] EXAMINATION:Head CT without contrast 12/17/2024 INDICATION: Right scalp hematoma, recent fall TECHNIQUE: Axial CT images of the head were acquired with intravenous contrast. Sagittal and coronal reformats were constructed. Radiation dose reduction techniques were used. COMPARISON: Head CT 12/15/2024 FINDINGS:There is a 4.8 x 2 mm 4.0 cm hematoma within the upper right parietal scalp, not significantly changed in size compared to the prior CT but overall increased in density. The surrounding soft tissue swelling within the right parietal occipital scalp, decreased in prominence. No soft tissue gas or radiopaque foreign body. No acute fracture or dislocation. Paranasal sinuses and mastoid air cells are clear. Orbits and globes are unremarkable. The prior left ocular lens replacement noted. There is a 5 mm hypodensity within the inferior right cerebellar hemisphere, unchanged. There is mild cerebral atrophy with concordant prominence of the ventricles No acute intracranial hemorrhage, mass effect, midline shift or extra-axial fluid collection. Procedure Note Binh Paris MD - 12/17/2024 [facility] [place], [place] [address] EXAMINATION:Head CT without contrast 12/17/2024 INDICATION: Right [...] Nava MD CT Final Result * (ABNORMAL) HEMOGLOBIN AND HEMATOCRIT (12/16/2024 12:46 AM POTATO INSPECTOR) Only the most recent of2 resultswithin the time period is included. HGB 10.2(L) 12.0 - 16.0 G/DL 12/16/2024 1:29 AM POTATO INSPECTOR [facility] HCT 31.5(L) 38.0 - 48.0 % 12/16/2024 1:29 AM POTATO INSPECTOR [facility] 12/16/2024 12:4 6 AM POTATO INSPECTOR [facility] Final Result [facility] [address] [place] [address], [place] [phone] * XR PELVIS MIN 3V (12/15/2024 3:57 PM POTATO INSPECTOR) Anatomical Region Laterality Modality Pelvis Radiographic Kristine ging 12/15/2024 4:52 PM POTATO INSPECTOR Impressions 12/15/2024 4:53 PM POTATO INSPECTOR [address] [address] Impression: Please see separate dictated report of the the bilateral hips which includes the pelvis. Ordered By: DARCIE AGARWAL Interpreted By: Chandrakant Chandler MD, 12/15/2024 4:52 PM Narrative Procedure Note Chandrakant Chandler MD - 12/15/[address] [address] Impression: Please see separate dictated report of the the bilateral hipswhich includes the pelvis. Ordered By: DARCIE AGARWAL Interpreted By: Chandrakant Chandler MD, 12/15/2024 4:52 PM [facility] Final Result * XR HIP PHYLLIS 2V+PELVIS (12/15/2024 12:27 PM POTATO INSPECTOR) Anatomical Region Laterality Modality Hip, Pelvis Radiographic Kristine ging 12/15/2024 12:3 6 PM POTATO INSPECTOR Impressions 12/15/2024 12:49 PM POTATO INSPECTOR IMPRESSION: 1. No definite evidence of acute fracture or dislocation in the right or left hips or AP pelvis. 2. Asymmetry of the right iliopectineal line on all the pelvic projections is felt to be rotational or projectional artifact. 3. Any point tenderness over the right femoral head might warrant further evaluation which could begin with MORRIS and BULGARIAN and Judet projections. Referred By: Interpreted By: Lindsey Cunningham DO, 12/15/2024 12:36 PM Narrative 12/15/2024 12:49 PM POTATO INSPECTOR [address] [address] CLINICAL INDICATION: 79-year-old female. Reason for examination: Fall. 12/15/2024 12:26 PM, Wilian Jackson C: Pt arrives by EMS from [facility] with complaints of a headache that comes and goes, she has had a headache since Sunday after falling. She fell backwards landing on the concrete, no LOC, no nausea or vomiting. She was seen on [place] on Sunday night following the fall. Facility was also concerned about abnormal lab results after her blood draw this morning TECHNIQUE: Supine AP view of the pelvis and AP and lateral views of the right and left hips in 8 projections COMPARISON: No previous imaging of the hips or pelvis Outside imaging from [facility] not available FINDINGS: Right hip: No evidence of acute fracture or dislocation. Right femoral head is well rounded and normally seated within the acetabulum. Mild medial hip joint space narrowing. The right superior and inferior pubic ramus and right proximal femoral diaphysis is intact. 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 Left femoral head is well rounded and normally seated within the acetabulum. Mild degenerative medial hip joint space narrowing. The left superior and inferior pubic ramus left proximal femoral diaphysis is intact There are image tram track calcification left internal and external iliac arteries and the SFA and profunda. AP pelvis: No definite evidence of acute fracture or dislocation. The sacrum is intact. The sacroiliac joints are symmetric. The bilateral ileum and ischium are intact. On all of the images of the right iliopectineal line is asymmetric with the left however this appears to be projectional or rotational there is no lucency or disruption is seen of the curvilinear anterior column of the right acetabulum. Procedure Note Lindsey Cunningham MD - 12/15/[address] [address] CLINICAL INDICATION: 79-year-old female. Reason for examination: Fall. 12/15/2024 12:26 PM, Wilian Jackson C: Pt arrives by EMS from [facility] with complaints of a headache that comes and goes, she hashad a headache since Sunday after falling. She fell backwards landing onthe concrete, no LOC, no nausea or vomiting. [place]. Facility was also concerned aboutabnormal lab results after her blood draw this morning TECHNIQUE: Supine AP view of the pelvis and AP and lateral views of the right andleft hips in 8 projections COMPARISON: No previous imaging of the hips or pelvis Outside imaging from [facility] not available FINDINGS: Right hip: [...] evaluation which could begin with MORRIS and BULGARIAN and Judetprojections. Referred By: Interpreted By: Lindsey Cunningham DO, 12/15/2024 12:36 PM us Swapna Celis MD GENERAL IMAGING Final Result * CT CERV SPINE WO CON (12/15/2024 12:11 PM POTATO INSPECTOR) Anatomical Region Laterality Modality Spine Computed Tomogra phy 12/15/2024 12:2 3 PM POTATO INSPECTOR Impressions 12/15/2024 12:26 PM POTATO INSPECTOR IMPRESSION: 1. No definite acute fractures identified in the cervical spine. 2. Degenerative changes. Ordered By: SWAPNA CELIS Interpreted By: Connor Baez MD, 12/15/2024 12:23 PM Narrative 12/15/2024 12:26 PM POTATO INSPECTOR [address] [address] DATE: 12/15/2024 12:06 PM EXAMINATION: CT Cervical Spine without contrast CLINICAL HISTORY: Fall COMPARISON: None TECHNIQUE: CT examination of the cervical spine was performed without contrast. Axial and multiplanar reformatted images were obtained. [...] Procedure Note Connor Baez MD - 12/15/[address] [address] DATE: 12/15/2024 12:06 PM EXAMINATION: CT Cervical [...] of C4 on C5. Rightward rotation of [id number] to C2. 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
--- OUTSIDE RECORDS SUMMARY | 2025-01-21 00:07 | XMS_ITS | Encounter Summary ---
Author Organization [facility] Address [address] [place] [address] Phone Care Team Providers Care Geriatric Physician Name Role Phone No, Physician Primary Care Provider [phone] Encounter Details Date Type Department Care Team (Late st Contact Info) Description 10/06/2024 Telephone [facility] Endocrinology Metabolism and Lipid [address] [facility] 13th [place] [address] [place] [address] Deven Weinberg CMA Social History Tobacco Use Types Packs/Day Years Used Date Smoking Tobacco: Former Cigarettes 3 51.2 S tarted: 11/26/1973 Smokeless Tobacco: Never Alcohol [...] often do you attend chur ch or congregational services? More than 4 times per year 02/02/2023 Do you belong to any clubs o r organizations such as christian groups, unions, fraternal or athletic groups, or [...] place to sleep or slept in a fpc (including now)? No 02/02/2023 Personal Safety Answer Date Recorded Have you ever been in or are you currently in a harmful physical or emotional relationship or is someone making you feel afraid or unsafe? 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
--- OUTSIDE RECORDS SUMMARY | 2025-01-21 00:07 | XMS_ITS | Referral Summary ---
Author Organization [facility] Address [address] [place] [address] Care Team Providers Care Dining Car Hop Name Role Phone No, Physician Primary Care Provider [phone] Encounters Date Type Department Care Team Description 12/24/2024 Telephone [facility] Cardiology [address] [place] [address] [place] [phone] Romel Graves MD 12/24/2024 10:15 AM LAND LEASES AND RENTALS MANAGER Ancillary Procedure [facility] Cardiology [address] [place] [address] [place] [phone] Atrial fibrillation, unspecified type (HCC); Sick sinus syndrome (CMS/HCC) (HCC); Pacemaker 12/23/2024 Anticoagulation Visit [facility] Cardiology [address] [place] [phone] Kristi Torres RN Atrial fibrillation, unspecified type (HCC) (Primary Dx) 12/23/2024 Telephone [facility] Cardiology [address] [place] [phone] Romel Graves MD 12/22/2024 Telephone [facility] Pulmonology [facility] [address] [place] [phone] Jake Turner MD 12/19/2024 Telephone [facility] Endocrinology Metabolism and Lipid [address] [facility] [address] [place] [address] [place] [phone] Hamida Mayorga CMA Med Management (Pts voicemail full. We do have her Ozempic 1mg 4 boxes) 12/15/2024 Anticoagulation Visit [facility] Cardiology [address] [place] [address] [place] [phone] Allie Levi RN Atrial fibrillation, unspecified type (HCC) (Primary Dx) 12/15/2024 Telephone [place] [address] [place] [phone] Romel Graves MD INR results 12/10/2024 1:30 PM LAND LEASES AND RENTALS MANAGER Office Visit [address] [phone] Romel Graves MD History of mitral valve replacement with mechanical valve (Primary Dx); Chronic anticoagulation; Hypertension associated with diabetes (HCC); Nonrheumatic aortic valve stenosis; Stage 3b chronic kidney disease (HCC); MAC on CPAP 12/08/2024 Anticoagulation Visit [address] [phone] Kristi Torres RN Atrial fibrillation, unspecified type (HCC) (Primary Dx) 12/02/2024 Anticoagulation Visit [address] [phone] Allie Levi RN Atrial fibrillation, unspecified type (HCC) (Primary Dx) 11/27/2024 Orders Only [facility] Cardiology [address] [place] [address] [place] [phone] Romel Graves MD Atrial fibrillation, unspecified type (HCC) (Primary Dx); Sick sinus syndrome (CMS/HCC) (HCC); Pacemaker 11/27/2024 7:00 AM LAND LEASES AND RENTALS MANAGER Ancillary Procedure [facility] Cardiology [address] [place] [address] [place] [phone] Pacemaker (Primary Dx); Atrial fibrillation, unspecified type (HCC); Sick sinus syndrome (CMS/HCC) (HCC) 11/24/2024 Anticoagulation Visit [facility] Cardiology [address] [place] [address] [place] [phone] Allie Levi RN Atrial fibrillation, unspecified type (HCC) (Primary Dx) 11/17/2024 Anticoagulation Visit [facility] Cardiology [address] [place] [address] [place] [phone] Kristi Torres RN Atrial fibrillation, unspecified type (HCC) (Primary Dx) 11/13/2024 Telephone [facility] Cardiology [address] [place] [address] [place] [phone] Romel Graves MD 11/10/2024 Anticoagulation Visit [facility] Cardiology [address] [place] [phone] Kristi Torres RN Atrial fibrillation, unspecified type (HCC) (Primary Dx) 11/03/2024 Anticoagulation Visit [facility] Cardiology [address] [place] [phone] Allie Levi RN Atrial fibrillation, unspecified type (HCC) (Primary Dx) 11/03/2024 9:45 AM LAND LEASES AND RENTALS MANAGER Ancillary Procedure [facility] Cardiology [address] [place] [address] [place] [phone] Pacemaker [Z95.0] (Primary Dx); Atrial fibrillation, unspecified type (HCC); Sick sinus syndrome (CMS/HCC) (HCC) 10/27/2024 Anticoagulation Visit [facility] Cardiology [address] [place] [phone] Ghassan Benavides RN Atrial fibrillation, unspecified [...] nephropathy, with long-term current use of insulin ([facility]) Use to test three times a day 1 kit 06/07/20 22 Active blood glucose diagnostic (glucose blood) stripIndications: Type 2 diabetes mellitus with diabetic nephropathy, with long-term current use of insulin ([facility]) Check blood sugar three ttimes a day or as directed 300 each 3 06/07/20 22 Active lancets miscIndications:T ype 2 diabetes mellitus with diabetic nephropathy, with long-term current use of insulin ([facility]) Use to test 3 times per day [...] with long-term current use of insulin (HCC) Inject 1 mg under the skin once [...] Sunday, Sunday, Sunday, Sunday. 20 tablet 1 05/27/20 24 Active Active [...] metapneumovirus Assessment & Plan (01/17/2023 4:04 PM LAND LEASES AND RENTALS MANAGER): -chest x-ray was reviewed, seems to be [...] 01/15/2023 Assessment & Plan (01/15/2023 1:29 PM LAND LEASES AND RENTALS MANAGER): -noted under the right breast -ordered topical miconazole Altered bowel function 12/19/2022 Allergic conjunctivitis 08/26/2022 Hemorrhoids 08/26/2022 Depression, major, recurrent 05/25/2022 Assessment & Plan (01/15/2023 1:30 PM LAND LEASES AND RENTALS MANAGER): -resumed Lexapro Assessment & Plan (05/25/2022 5:06 [...] 04/17/2022 Assessment & Plan (01/15/2023 1:29 PM LAND LEASES AND RENTALS MANAGER): -resumed donepezil Assessment & Plan (05/25/2022 5:05 AM CDT): - Continue home Donepezil 5mg qhs Assessment & Plan (05/03/2022 5:17 AM CDT): New Order aricept COVID-19 07/02/2021 Mixed diabetic hyperlipidemi a associated with type 2 diabetes mellitus 04/26/2021 Assessment & Plan (12/21/2021 5:34 AM LAND LEASES AND RENTALS MANAGER): Stable Cont lipitor Goal: TC<200, LDL<100, TG<150 Pulmonary hypertension 04/26/2021 Assessment & Plan (04/10/2024 9:37 AM CDT): Pulmonary hypertension with PASP 62 mmHg. Possible cause is due to TR. She is dry, lasix was hold. Chronic anticoagulation 04/26/2021 Nonrheumatic tricuspid valve regurgitation 04/26 Osteoporosis 11/13/2019 Assessment & Plan (01/15/2023 1:29 PM LAND LEASES AND RENTALS MANAGER): -reports that she has not been taking [...] needed. Assessment & Plan (01/15/2023 1:28 PM LAND LEASES AND RENTALS MANAGER): -ordered hemoglobin A1c, hold Farxiga and semaglutide in the hospital -we will manage with long-acting, pre meal and sliding scale insulin in the hospital -continue to monitor blood sugars, goal inpatient blood sugar is 140-180 Assessment & Plan (05/03/2022 5:16 AM CDT): Chronic Cont glucophage, basaglar, jardiance, ozempic Goal: Hgba1c<6.5 Assessment & Plan (12/21/2021 5:40 AM LAND LEASES AND RENTALS MANAGER): Chronic Cont glucophage, basaglar, jardiance, ozempic Goal: Hgba1c<6.5 Assessment & Plan (02/22/2021 2:56 PM CDT): Stable Cont metformin COPD exacerbation 10/18/2019 Assessment & Plan (01/17/2023 4:08 PM LAND LEASES AND RENTALS MANAGER): -with severe exacerbation -likely from viral infection -diffuse wheezing noted bilaterally on arrival, improving. -started on steroids, inhaler therapy, s/p scheduled DuoNebs. Transition to PO steroid taper Assessment & Plan (10/18/2019 12:03 PM LAND LEASES AND RENTALS MANAGER): Give rocephin and kenalog here in clinic Order CXR Order etienne casey pack Chronic kidney disease (CKD), stage III (moderat e) 11/08/2015 Overview (05/06/2019): Overview: Based on GFR's Assessment & Plan (01/15/2023 1:30 PM LAND LEASES AND RENTALS MANAGER): -renal function is at baseline, avoid nephrotoxic agents, monitor urine output Atrial fibrillation ([facility]) 04/11/2014 Overview (03/01/2017): ATRIAL FIBRILLATION Assessment & [...] Warfarin Assessment & Plan (01/17/2023 4:06 PM LAND LEASES AND RENTALS MANAGER): -resumed Coreg and Coumadin. Patient is status post pacemaker insertion. INR 3.3 01/14. - INR supratherapeutic at 8.4 > 7.8. Verified with facility that they can draw INR 01/18 and 01/22. Dr. Phipps (patient plastic cablemaking machine operator) monitors outpatient for adjustment. Assessment & Plan (05/25/2022 4:55 AM CDT): - S/p mechanical mitral valve - Pacemaker (Medtronic Adapta) placed on 10/25/2015. Permanent afib 100% V paced. Pacemaker dependent VVI to 30 bpm AUTOMATIC DIE CUTTING MACHINE OPERATOR. - INR goal 2.5-3.[address] Loc Mechanical mitral valve - Was getting bridge with lovenox 80 mg q12 for low INR ROUTE SALESPERSON with Warfarin - On warfarin and lovenox [...] stabilizes. Assessment & Plan (01/16/2023 11:14 AM LAND LEASES AND RENTALS MANAGER): -resumed Coreg and losartan. Patient persistent hypertensive. [...] Stable Cont cozaar, coreg Sick sinus syndrome ([facility]) 04/10/2011 Overview (03/08/2018): Description: Sick Sinus Syndrome Pacemaker 02/09/2011 Overview (05/05/2021): Medtronic Adapta Single Pacemaker. Dx; SSS, Afib. DOI-10/25/2015-elsewhere. Carelink remote monitoring. S/P mitral valve replacement 04/06/2009 Overview (05/06/2019): Overview: St. Loc's valve. Dr. De La Rosa office follows tj. He is her plastic cablemaking machine operator. On warfarin. 11/05/2014 Assessment & Plan (04/10/2024 [...] function Assessment & Plan (01/17/2023 4:09 PM LAND LEASES AND RENTALS MANAGER): - goal INR of 2.5-3.5, on Coumadin - INR supratherapeutic at 8.4 > 7.8. Verified with facility that they can draw INR 01/18 and 01/22. Dr. Phipps (patient plastic cablemaking machine operator) monitors outpatient for adjustment. - Holding coumadin, [...] 07/05/2022 01/15/2023 Acute kidney injury 05/25/2022 01/15/20 23 Assessment & Plan (05/25/2022 4:51 AM CDT): [...] 01/15/2023 Assessment & Plan (12/21/2021 5:42 AM LAND LEASES AND RENTALS MANAGER): Worsening pain Use flexeril PRN Ear discomfort, left 06/15/2021 08/05/ 021 Neck pain 05/04/2021 01/15/2023 Assessment & Plan (12/21/2021 5:42 AM LAND LEASES AND RENTALS MANAGER): Worsening pain Use flexeril PRN Assessment & [...] w ith chronic systolic congestive heart failure (CMS/HCC) 02/22/2021 01/15/2023 Assessment & Plan (12/21/2021 5:35 AM LAND LEASES AND RENTALS MANAGER): Stable Cont cozabartolo coreg Goal: SBP<140, DP<90 Assessment & Plan (05/11/2021 4:16 AM CDT): Stable Cont cozaar, coreg Assessment & Plan (02/22/2021 2:52 PM CDT): Stable Cont cozaar, coreg Right leg pain 11/22/2020 06/30/2021 Assessment & Plan (12/06/2020 4:35 AM LAND LEASES AND RENTALS MANAGER): Was likely secondary to cellulitis Is better Assessment & Plan (11/30/2020 5:22 AM LAND LEASES AND RENTALS MANAGER): New Order STAT venous doppler If negative [...] gallbladder 11/13/2019 06/30/2021 Acute cholecystitis 11/13/2019 06/30/20 Cellulitis of multiple sites of head and neck 11/13/2006/30/2021 Chest pain at rest 11/13/2019 1 Clostridioides difficile diarrhea 11/13/2019 01/15/2023 Pain in right knee 11/13/2019 1 Postprocedural hematoma of abdominal wall 11/13/2019 01/15/2023 Sepsis with cutaneous manife stations ([facility]/HCC) 11/13/2019 01/15/2023 Type 2 diabetes mellitus not at goal (CMS/HCC) 11/13/2019 01/15/2023 Assessment & Plan (02/14/2020 12:37 AM CDT): Stable Cont basaglar, ozempic Atrial fibrillation with slo w ventricular response (CMS/HCC) 11/13/2019 01/15/2023 Chronic obstructive pulmonar y disease with bronchospasm (CMS/HCC) 11/13/2019 06/30/2021 Obstructive chronic bronchit is with exacerbation (CMS/HCC) 11/13/2019 01/15/2023 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 01/15/2023 Gastroesophageal reflux dise ase with stricture 11/13/2019 01/15/2023 Status post mitral valve rep lacement with metallic valve 11/13/2019 01/15/2023 Dyslipidemia, goal LDL below 100 11/13/2019 10/12/2021 Insomnia 11/13/2019 01/15/2023 Uncontrolled stage 2 hypertension 11/13/2019 02/22/2021 Controlled restless legs syndrome 11/13/2019 06/30/2021 Weakness 11/13/2019 06/30/2021 Assessment & Plan (11/13/2019 10:25 AM LAND LEASES AND RENTALS MANAGER): Recently discharged from hospital for pneumonia and [...] 06/30/2021 Assessment & Plan (10/29/2019 1:33 PM LAND LEASES AND RENTALS MANAGER): D/w point of care specialist and hospitalist and sent for direct admission [...] dermatitis 03/09/2017 01/15/2023 CHF (congestive heart failure) ([facility]) 02/22/2017 03/21/2023 Assessment & Plan (01/17/2023 4:07 PM LAND LEASES AND RENTALS MANAGER): -echocardiogram from 05/25/2022 showed EF of 54% -currently there is no evidence of fluid overload on exam, proBNP is actually better than the previous admission -resumed Lasix and Aldactone -goal-directed medical therapy as tolerated Assessment & Plan (05/25/2022 5:01 AM CDT): - 04/10/22 2D echo at [facility] - EF 50%, mild aortic stenosis, mechanical [...] 01/15/2023 Assessment & Plan (12/21/2021 5:41 AM LAND LEASES AND RENTALS MANAGER): Stable Cont allopurinol Assessment & Plan (02/22/2021 [...] 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 Not needing albuterol. Patient has moderate COPD. She is clinically stable. I will continue her on Symbicort 160/4.5 b.i.d., p.r.n. albuterol and Atrovent nebs, and p.r.n. albuterol. Had shank stitcher has also added incruse once a day which she will continue. I will order PFT Assessment & Plan (05/25/2022 3:45 AM CDT): - Not needing albuterol as outpatient per pulmonology note - Trellegy Ellipta 1 puff daily History of PR (myocardial infarction) 04/21/2014 01/15/2023 Overview (05/06/2019): Overview: [...] CDT): - Follows with endo clinic at [facility] (Home reg ozempic, Jardiance 10, metformin 500 [...] Ozempic Assessment & Plan (12/10/2018 2:06 PM LAND LEASES AND RENTALS MANAGER): I called her to assess response to her new med, ozempic. Took first correct dose two days ago, did not feel great yesterday, but feels well today. Stopped januvia as directed. Will take next ozempic dose in 5 days and let us know response. Ra Jara Benign neoplasm of large intestine 04/11/2014 01/15/2023 Overview (03/02/2017): BENIGN NEOPLASM LG BOWEL Coronary arteriosclerosis in [place] artery 04/11/2014 06/30/2021 Overview (03/02/2017): CRNRYon ATHRSCL NATVE VSSL Hyperlipidemia 04/11/2014 10/12/2021 Overview [...] with diet Coronary artery disease invo lving [place] coronary artery of [place] heart without angina pectoris 05/09/2013 01/15/2023 Overview (06/25/2019): Overview: No chest discomfort History of asthma 03/31/2013 01/15/2023 Overview (02/08/2022): Mainly with viral infections. Mitral valve disease 03/19/2013 023 Cardiomyopathy 03/19/2013 01/15/2023 Chronic systolic heart failure ([facility]/HCC) 03/19/2013 01/15/2023 Mixed urge and stress incontinence 09/09/2012 01/15/2023 Dry eye syndrome 03/04/2012 01/15/2023 Overview (02/08/2022): Not bad as of 11/05/2014 not compliant with drops always. History of colonic polyps 04/04/2011 Overview (05/06/2019): Overview: Colonoscopy Removed 8 polyps, all benign. 10/23/16 tubular adenoma x 4 Complicated by GI bleed hospital stay 10/27/16 - 11/04/16, [facility] Asystole (CMS/HCC) 02/09/2011 1 Persistent atrial fibrillation 02/09/2011 01/15/2023 [...] w ith status asthmaticus 05/16/2005 01/15/2023 Immunizations Immunization Administration Dates Next Due Influenza, [...] week 02/02/2023 How often do you attend [facility] or jain services? More than 4 times per year 02/02/2023 Do you belong to any clubs o r organizations such as rastafarian groups, unions, fraternal or athletic groups, or [...] on file Legal Sex Female 9:08 AM LAND LEASES AND RENTALS MANAGER Gender Identity Female 06/25/2019 7:13 AM CDT Sexual Orientation Not on file Last Filed Vital Signs Vital Sign Reading Time Taken Comments Blood Pressure 128/76 12/10/2024 1:25 PM LAND LEASES AND RENTALS MANAGER Pulse 91 12/10/2024 1:25 PM LAND LEASES AND RENTALS MANAGER Temperature 36.2 C (97.1 F) 09/12/2024 11:39 AM CDT Respiratory Rate 18 04/10/2024 8:25 AM CDT Oxygen Saturation 99% 12/10/2024 1:25 PM LAND LEASES AND RENTALS MANAGER Inhaled Oxygen Concentration - - Weight 85.7 kg (189 lb) 12/10/2024 1:25 PM LAND LEASES AND RENTALS MANAGER Height 157.5 cm (5' 2 ) 12/10/2024 1:25 PM LAND LEASES AND RENTALS MANAGER Body Mass Index 34.57 12/10/2024 1:25 PM LAND LEASES AND RENTALS MANAGER Plan of Treatment Not on file Medical Devices Implanted Type Area Hoop Riveting Machine Operator Device Identifier Shelf Expiration Date Model / Serial / Lot Unified [employer] Coil Embolization Tornado Microcoil Grindstone Od3-2mm .018 In Catheter [id number] - [id number] Implanted:Qty: 1 on 05/24/2022 at [facility] [employer] 03/13/2027 [id number] / / [id number] [employer] Coil Embolization Tornado Microcoil Grindstone Od3-2mm .018 In Catheter [id number] - [id number] Implanted:Qty: 1 on 05/24/2022 at [facility] [employer] 03/13/2027 [id number] / / [id number] [employer] Coil Embolization Tornado Microcoil Grindstone Od3-2mm .018 In Catheter [id number] - [id number] Implanted:Qty: 1 on 05/24/2022 at [facility] [employer] 03/13/2027 [id number] / / [id number] [employer] Coil Embolization Tornado Microcoil Grindstone Od3-2mm .018 In Catheter [id number] - [id number] Implanted:Qty: 1 on 05/24/2022 at [facility] [employer] 03/13/2027 [id number] / / [id number] [employer] Coil Embolization Tornado Microcoil Grindstone Od3-2mm .018 In Catheter [id number] - [id number] Implanted:Qty: 1 on 05/24/2022 at [facility] [employer] 03/13/2027 [id number] / / [id number] Angio-Seal Vip 6fr Closere Device [id number] - [id number] Implanted:Qty: 1 on 05/24/2022 at [facility] [employer] 02/23/2023 [id number] / / [id number] Procedures Procedure Name Priority Date/Time Associated Diagnosis Comments DEVICE CHECK - REMOTE Routine 12/24/2024 10:56 AM LAND LEASES AND RENTALS MANAGER Atrial fibrillation, unspecified type (HCC) Sick sinus syndrome (CMS/HCC) (HCC) Pacemaker PROTIME-INR Routine 12/15/2024 PROTIME-INR Routine 12/15/2024 ELECTROCARDIOGRAM REPORT Routine 025 3:54 PM LAND LEASES AND RENTALS MANAGER History of mitral valve replacement with mechanical valve PROTIME-INR Routine 12/08/2024 PROTIME-INR Routine 12/01/2024 DEVICE CHECK - REMOTE Routine 11/27/2024 4:23 PM LAND LEASES AND RENTALS MANAGER Atrial fibrillation, unspecified type (HCC) Sick sinus syndrome (CMS/HCC) (HCC) PROTIME-INR Routine 11/24/2024 PROTIME-INR Routine 11/16/2024 DEVICE CHECK - REMOTE Routine 11/13/2024 12:27 PM LAND LEASES AND RENTALS MANAGER Atrial fibrillation, unspecified type (HCC) Sick sinus [...] DEVICE CHECK - REMOTE (12/24/2024 10:56 AM LAND LEASES AND RENTALS MANAGER) Anatomical Region Laterality Modality Other Narrative 12/24/2024 3:20 PM LAND LEASES AND RENTALS MANAGER Medtronic Adapta Single Pacemaker. Dx; SSS, Afib. DOI-10/25/2015-elsewhere. [facility] remote monitoring. Routine VVI Pacemaker Remote. Transmission attached. Battery status: DOUGH MIXING MACHINE OPERATOR reached on 12/22/24. [employer] tech support reports that patient has standard 90 day replacement window Patient is pacemaker dependent Stable lead impedances, pacing and sensing thresholds. Presenting rhythm: AUTOMATIC DIE CUTTING MACHINE OPERATOR AUTOMATIC DIE CUTTING MACHINE OPERATOR-99.8% No Ventricular high rate episodes detected. Medications: Warfarin, Entresto, carvedilol 3.125 mg See scanned report. Office pacemaker follow up: Pending generator change Called patient and patient's daughter returned phone call. Informed patient's daughter Deneen that the patient's pacemaker had reached DOUGH MIXING MACHINE OPERATOR. Patient's daughter confirms patient is still taking warfarin, Entresto, and carvedilol 3.125 mg. Patient's daughter confirms patient is diabetic. Patient lives in [place], and patient's daughter would like pacemaker replacement to happen at [facility] with Dr. Baum. Please call [phone] to reach patient's daughter Deneen for scheduling. Sunny Braun, CAROL ANN Result [facility] Romel Graves MD CV CARDIAC SERVICES PROCEDURES F inal Result * (ABNORMAL) Protime-INR (12/15/2024) INR 6.90(A) 0.90 - 1.10 EXTERNAL LAB Blood Result [facility] Historical Provider LAB BLOOD ORDERABLES Edit ed Result - Final EXTERNAL LAB * (ABNORMAL) Protime-INR (12/15/2024) INR 6.90(A) 0.90 - 1.10 EXTERNAL LAB Blood Result [facility] Historical Provider LAB BLOOD ORDERABLES Kami l Result EXTERNAL LAB * Electrocardiogram Report (12/10/2024 3:54 PM LAND LEASES AND RENTALS MANAGER) Result [facility] Romel Graves MD ECG ORDERABLES Final Result * (ABNORMAL) Protime-INR (12/08/2024) INR 3.80(A) 0.90 - 1.10 EXTERNAL LAB Blood Result [facility] Historical Provider MD LAB BLOOD ORDERABLES Kami l Result Performing Organization Address City/[facility]/ZIP Co de Phone Number EXTERNAL LAB * (ABNORMAL) Protime-INR (12/01/2024) INR 3.30(A) 0.90 - 1.10 EXTERNAL LAB Blood Result [facility] Historical Provider MD LAB BLOOD ORDERABLES Kami l Result Performing Organization Address [facility] Co de Phone Number EXTERNAL LAB * DEVICE CHECK - REMOTE (11/27/2024 4:23 PM LAND LEASES AND RENTALS MANAGER) Anatomical Region Laterality Modality Other Narrative 12/02/2024 7:53 AM LAND LEASES AND RENTALS MANAGER Medtronic Adapta Single Pacemaker. Dx; SSS, Afib. DOI-10/25/2015-elsewhere. [facility] remote monitoring. VVIR Pacemaker Remote to assess battery status. Transmission attached. Battery status: 2.61 V, < 1 month remaining battery life to PAUL. Stable lead impedances, pacing and sensing thresholds. Presenting rhythm: Vpaced. AUTOMATIC DIE CUTTING MACHINE OPERATOR-99.8 %. No Ventricular high rate episodes detected. Medications: Carvedilol, Warfarin, Entresto See scanned report. Office pacemaker follow up: Pending generator change. [facility] remote f/u 12/24/2024. Ailyn Shay, RN Result [facility] Romel Graves MD CV CARDIAC SERVICES PROCEDURES F inal Result * (ABNORMAL) Protime-INR (11/24/2024) INR 4.20(A) 0.90 - 1.10 EXTERNAL LAB Blood Result [facility] Historical Provider MD LAB BLOOD ORDERABLES Kami l Result Performing Organization Address City/[facility]/ZIP Co de Phone Number EXTERNAL LAB * (ABNORMAL) Protime-INR (11/16/2024) INR 3.70(A) 0.90 - 1.10 EXTERNAL LAB Blood Result [facility] Provider MD LAB BLOOD ORDERABLES Kami l Result EXTERNAL LAB * DEVICE CHECK - REMOTE (11/13/2024 12:27 PM LAND LEASES AND RENTALS MANAGER) Anatomical Region Laterality Modality Other Narrative 11/13/2024 12:59 PM [employer] MANAGER [employer] Adapta Single Pacemaker. Dx; SSS, Afib. DOI-10/25/2015-elsewhere. Carelink remote monitoring. Routine VVIR Pacemaker Remote to assess battery status. Transmission attached. Battery status: 2.63 V, < 1 month remaining battery life to PAUL. Stable lead impedances, pacing and sensing thresholds. Presenting rhythm: Vpaced. AUTOMATIC DIE CUTTING MACHINE OPERATOR-99.8 %. No AT/AF episodes noted. No Ventricular high rate episodes detected. Medications: Carvedilol, Warfarin, Entresto See scanned report. Office pacemaker follow up: Pending generator change. CareLink remote f/u 11/27/2024. Ailyn Shay, CAROL ANN Result [facility] Romel Graves MD CV CARDIAC SERVICES PROCEDURES F inal Result * (ABNORMAL) Protime-INR (11/10/2024) INR 4.90(A) 0.90 - 1.10 EXTERNAL LAB Blood Result [facility] Historical Provider MD LAB BLOOD ORDERABLES Kami l Result EXTERNAL LAB * (ABNORMAL) Protime-INR (11/03/2024) INR 3.40(A) 0.90 - 1.10 EXTERNAL LAB Blood Result [facility] Historical Provider MD LAB BLOOD ORDERABLES Kami l Result EXTERNAL LAB * (ABNORMAL) Protime-INR (10/21/2024) Pathologist [facility] INR 3.00(A) 0.90 - 1.10 EXTERNAL LAB Blood Historical Provider LAB BLOOD ORDERABLES Kami l Result EXTERNAL LAB * POCT hemoglobin A1c (09/12/2024 11:49 AM CDT) Pathologist [facility] Hemoglobin A1C, POC 6.7 4.0 - 5.6 % Blood 09/12/2024 11:4 9 AM CDT Ra Jara MD POINT OF CARE TEST ORDERA BLES Final Result * (ABNORMAL) eGFR (04/09/2024 10:22 PM CDT) Pathologist [facility] eGFR 30(L) >=60 mL/min/1. 73 m2 Comment: [...] LAB BLOOD ORDERABL ES Final Result [facility] Department [place] [address] * POCT lipid panel (08/17/2023 3:06 PM [...] Agency Comment Performing Organization Information: Site ID: [id number] Name: [employer] Address: [address] [id number] Director: Hermelindo Arce D.O., MPH Ra Jara MD LAB URINE ORDERABLES Kami l Result [facility] [place] [place] WADE from Last 3 Months or Most Recently Relevant to Health Maintenance Insurance [address] [place] [id number] [facility] [address] [place] [address] [facility] MEDIC[address] Dr Dasilva [address] [place] [address] MEDICARE Advance Directives For more information, please contact: [phone] Documents on File Type Date Recorded Patient Modern Dancer Expl anation ADVANCE DIRECTIVE 02/05/2023 10:58 AM [...] 11:11 PM 06/05/2022 8:42 PM Care Teams Dining Car Hop Relationship Specialty Start Date End Date No, Physician PCP - General 09/12/24
--- OUTSIDE RECORDS SUMMARY | 2025-01-21 00:08 | XMS_ITS | Encounter Summary ---
Author Organization [facility] Healthcare Address [address] [place] [address] Care Team Providers Care Event Promotions Coordinator Name Role Phone Meredith Aburto HYDROELECTRIC COMPONENT MACHINIST Primary Care Provi arltete No, Physician Primary Care Provider [phone] Encounter Details Date Type Department Care Team (Late st Contact Info) Description 12/31/2023 Orders Only [facility] [place] [facility] [address] [place] [address] Scanning, Provider Social History Tobacco [...] often do you attend chur ch or zoroastrian services? More than 4 times per year 02/02/2023 Do you belong to any clubs o r organizations such as uatsdin groups, unions, fraternal or athletic groups, or [...] on file Legal Sex Female 9:08 AM DETAILER SCHOOL PHOTOGRAPHS Gender Identity Female 06/25/2019 7:13 AM CDT [...] on filedocumented in this encounter Care Teams Event Promotions Coordinator Relationship Specialty Start Date End Date Meredith Aburot NP PCP - General Family Medicine 08/17/23 09/11/24 No, Physician PCP - General 09/12/24 documented as of this encounter
--- OUTSIDE RECORDS SUMMARY | 2025-01-21 00:08 | XMS_ITS | Encounter Summary ---
Author Organization [facility] Address [address] [facility] [address] [facility] [address] Phone Care Team Providers Care Network Security Administrator Name Role Phone Dariel De Souza MD Primary Care Provider Bebo Hansen MD Primary Care Provider Juana Mesa MD Primary Care Provider [phone] Juana Mesa MD Primary Care Provider [phone] Sharlene Meléndez LPN Unavailable [phone] Sharlene Meléndez LPN Unavailable [phone] Lissette Riley Unavailable No, Physician Primary Care Provider [phone] Paulette Prieto AD COPY WRITER Primary Care Provider [phone] Meredith Aburto AD COPY WRITER Primary Care Provi arlette No, Physician Primary Care Provider [phone] Encounter Details Date Type Department Care Team (Late st Contact Info) Description 06/04/2015 Orders Only [facility]INCONV Provider, MD Dwayne [address] [place] [address] Social History Tobacco Use Types Packs/Day Years Used Date Smoking Tobacco: Never Assessed Alcohol Use Standard Drinks/Week Comments Yes 0 (1 standard drink = 0.6 oz pur e alcohol) Comments Unknown Sex and Gender Information Value Date Recorded Sex Assigned at Not on file Legal Sex Female 9:08 AM ORDER ENTRY CLERK Gender Identity Female 06/25/2019 7:13 AM CDT [...] diarrhea 04/18/2017 04/17/2017 12/30/2021 2 :39 PM ORDER ENTRY CLERK COVID: Suspected 07/05/2020 07/05/2020 07/19/2020 3:05 AM CDT COVID: Suspected 07/01/2021 07/01/2021 07/01/2021 2:38 PM CDT COVID: Suspected 07/01/2021 07/01/2021 07/01/2021 9:10 PM CDT COVID19 07/01/2021 07/01/2021 07/15/2021 3:05 AM CDT COVID: Recovered Comment:Added based on recent COVID infection. 07/15/2021 07/15/2021 11/12/2021 3:[address] COVID: Suspected 11/28/2021 11/28/2021 11/28/2021 7:00 PM ORDER ENTRY CLERK COVID19 11/28/2021 11/28/2021 12/12/2021 3:05 AM ORDER ENTRY CLERK COVID: Recovered Comment:Added based on recent COVID infection. 12/12/2021 12/12/2021 04/11/2022 3:05 AM C DT COVID: Suspected 07/05/2022 07/05/2022 07/05/2022 10:39 PM CDT MRSA 07/06/2022 07/06/2022 01/02/2023 3:05 AM ORDER ENTRY CLERK COVID19 12/02/2022 12/02/2022 12/13/2022 3:05 AM ORDER ENTRY CLERK COVID: Recovered Comment:Added based on recent COVID infection. 12/13/2022 12/15/2022 03/13/2023 3:05 AM C DT Exposure, COVID-19 Comment:No direct exposure. Pt in COVID recovery window. No concern for new infection. Ana Aguilera 01/15/2023 Added automatically based on COVID19 lab answers indicating exposure risk 01/14/2023 01/14/2023 01/15/2023 10:17 AM ORDER ENTRY CLERK COVID: Suspected 01/14/2023 01/14/2023 01/14/2023 6:42 PM ORDER ENTRY CLERK Human metapneumovirus, conta ct + droplet 01/14/2023 01/14/2023 01/21/2023 3:[address] COVID: Suspected 01/30/2023 01/30/2023 01/30/2023 10:06 PM ORDER ENTRY CLERK documented as of this encounter Care Teams Network Security Administrator Relationship Specialty Start Date End Date Dariel De Souza MD [address] [facility] [address] [place] [address] PCP - General 11/06/07 06/14/17 Bebo Hansen MD [address] [facility] [address] [place] [address] PCP - General 06/15/17 10/16/17 Juana Mesa MD [address] [facility] [address] [place] [address] PCP - General 10/17/17 11/25/17 Juana Mesa MD [address] [facility] [address] [place] [address] PCP - General 11/26/17 10/26/18 No, Physician PCP - General 06/20/22 06/21/22 Paulette Prieto, CARMEN [address] [place] [address] PCP - General Nurse Practitioner 06/22/22 08/16/23 Meredith Aburto NP [address] [place] [address] PCP - General Family Medicine 08/17/23 09/11/24 No, Physician PCP - General 09/12/24 Sharlene Meléndez LPN [address] [place] [address] [address] [place] [address] Redrawer 07/02/18 07/02/18 Sharlene Meléndez LPN [address] [place] [address] [address] [place] [address] Redrawer 11/05/19 11/05/19 Lissette Riley [address] [place] [address] ACO Care Pilot Manager 01/15/20 01/15/20 documented as of this encounter
--- OUTSIDE RECORDS SUMMARY | 2025-01-21 00:08 | XMS_ITS ---
Author Organization [facility] Address [address] [place], [place] [address] Care Team Providers Care Manufacturing Laborer Name Role Phone LINDA PACHECO Unavailable [phone] Stone, Crystal Unavailable Unavailable Allergies Allergen (clinical [...] sodium 10 MG Oral Tablet *Reorder from [facility] [facility] for eRx and Interaction Alerts* 2 Active clobetasol propionate 0.0005 MG/MG Topical Ointment CUTANEOUS clobetasol propionate 0.0005 MG/MG Topical OintmentOriginal Medicationclobetasol propionate 0.0005 MG/MG Topical Ointment *Reorder from [facility] [facility] for eRx and Interaction Alerts* 3 Active Carvedilol 12.5 MG Oral Tablet ORAL carvedilol 12.5 MG Oral TabletOriginal Medicationcarvedilol 12.5 MG Oral Tablet *Reorder from [facility] [facility] for eRx and Interaction Alerts* 2 Active ciprofloxacin 500 MG Oral Tablet [Cipro] ORAL ciprofloxacin 500 MG Oral Tablet [Cipro]Original Medicationciprofloxacin 500 MG Oral Tablet [Cipro] *Reorder from [facility] for eRx and Interaction Alerts* 7 Active Lisinopril 2.5 MG Oral Tablet ORAL lisinopril 2.5 MG Oral TabletOriginal Medicationlisinopril 2.5 MG Oral Tablet *Reorder from [facility] for eRx and Interaction Alerts* 2 Active Furosemide 40 MG Oral Tablet ORAL furosemide 40 MG Oral TabletOriginal Medicationfurosemide 40 MG Oral Tablet *Reorder from [facility] for eRx and Interaction Alerts* 2 Active isopropyl alcohol 0.7 ML/ML Medicated Pad isopropyl alcohol 0.7 ML/ML Medicated PadOriginal Medicationisopropyl alcohol 0.7 ML/ML Medicated Pad *Reorder from [facility] for eRx and Interaction Alerts* 2 05/29/20 29 Active metformin hydrochloride 1000 MG Oral Tablet ORAL metformin hydrochloride 1000 MG Oral TabletOriginal Medicationmetformin hydrochloride 1000 MG Oral Tablet *Reorder from [facility] for eRx and Interaction Alerts* 2 Active digoxin 0.125 MG Oral Tablet ORAL digoxin 0.125 MG Oral TabletOriginal Medicationdigoxin 0.125 MG Oral Tablet *Reorder from [facility] for eRx and Interaction Alerts* 2 Active insulin aspart, human 100 UNT/ML Injectable Solution [NovoLog] insulin aspart, human 100 UNT/ML Injectable Solution [NovoLog]Original Medicationinsulin aspart, human 100 UNT/ML Injectable Solution [NovoLog] *Reorder from [facility] for eRx and Interaction Alerts* 2 Active colchicine 0.6 MG Oral Tablet [Colcrys] ORAL colchicine 0.6 MG Oral Tablet [Colcrys]Original Medicationcolchicine 0.6 MG Oral Tablet [Colcrys] *Reorder from [facility] for eRx and Interaction Alerts* 4 Active Encounters Encounter Location Date Provider Diagnosis [facility] [address] [place], [place] [id number] 09/15/2024 LINDA SNOOK Tinea unguium B35.1 ; Pain in right foot M79.671 ; Pain in left foot M79.672 ; Atherosclerosis of apache arteries of extremities with intermittent claudication, bilateral [...] foot (ICD-10 - M79.672) 09/15/2024 Atherosclerosis of apache arteries of extremities with intermittent claudication, bilateral [...] At-Risk Foot care, sooner if problems develop. Progress Notes * MAI MCCULLOUGH KDOB:[birth year] (79 yo F)Acc No.[id number]:09/15/2024 Patient: Shubham SUSHILAANTHONY MAI Pnito Provider: Gabino Pacheco DPM :1945 A ge:79 Y S ex:Female Date:09/15/2024 Address:[address] [place], [place] [address] Subjective: * Chief Complaints: * 1 . Patient presents for at-risk foot care . The patient has painful toenails and calluses that are causing difficulty with ambulation and shoegear. The onset is gradual. * HPI: H PI: General care P miguelangel presents to the office for diabetic foot care. Patient states that their nails are thickened, elongated and painful. Patient states that it is aggravated by shoe gear. Onset is gradual., Patient is taking prescription blood thinners., Date last seen by Dr. Prieto was 08/2024., Initials mca. * Medical History: * Medications: T aking Furosemide 40 MG Oral Tablet ORAL , Notes to Pharmacist: furosemide 40 MG Oral TabletOriginal Medicationfurosemide 40 MG Oral Tablet *Reorder from [facility] for eRx and Interaction Alerts*, Taking Warfarin Sodium 10 MG Oral Tablet ORAL , Notes to Pharmacist: warfarin sodium 10 MG Oral TabletOriginal Medicationwarfarin sodium 10 MG Oral Tablet *Reorder from [facility] for eRx and Interaction Alerts*, Taking Lisinopril 2.5 MG Oral Tablet ORAL , Notes to Pharmacist: lisinopril 2.5 MG Oral TabletOriginal Medicationlisinopril 2.5 MG Oral Tablet *Reorder from [facility] for eRx and Interaction Alerts*, Taking Carvedilol 12.5 MG Oral Tablet ORAL , Notes to Pharmacist: carvedilol 12.5 MG Oral TabletOriginal Medicationcarvedilol 12.5 MG Oral Tablet *Reorder from [facility] for eRx and Interaction Alerts*, Taking ciprofloxacin 500 MG Oral Tablet [Cipro] ORAL , Notes to Pharmacist: ciprofloxacin 500 MG Oral Tablet [Cipro]Original Medicationciprofloxacin 500 MG Oral Tablet [Cipro] *Reorder from [facility] for eRx and Interaction Alerts*, Taking clobetasol propionate 0.0005 MG/MG Topical Ointment CUTANEOUS , Notes to Pharmacist: clobetasol propionate 0.0005 MG/MG Topical OintmentOriginal Medicationclobetasol propionate 0.0005 MG/MG Topical Ointment *Reorder from [facility] for eRx and Interaction Alerts*, Taking colchicine 0.6 MG Oral Tablet [Colcrys] ORAL , Notes to Pharmacist: colchicine 0.6 MG Oral Tablet [Colcrys]Original Medicationcolchicine 0.6 MG Oral Tablet [Colcrys] *Reorder from [facility] for eRx and Interaction Alerts*, Taking digoxin 0.125 MG Oral Tablet ORAL , Notes to Pharmacist: digoxin 0.125 MG Oral TabletOriginal Medicationdigoxin 0.125 MG Oral Tablet *Reorder from [facility] for eRx and Interaction Alerts*, Taking insulin aspart, human 100 UNT/ML Injectable Solution [NovoLog] , Notes to Pharmacist: insulin aspart, human 100 UNT/ML Injectable Solution [NovoLog]Original Medicationinsulin aspart, human 100 UNT/ML Injectable Solution [NovoLog] *Reorder from [facility] for eRx and Interaction Alerts*, Taking isopropyl alcohol 0.7 ML/ML Medicated Pad , stop date 05/29/2029, Notes to Pharmacist: isopropyl alcohol 0.7 ML/ML Medicated PadOriginal Medicationisopropyl alcohol 0.7 ML/ML Medicated Pad *Reorder from [facility] for eRx and Interaction Alerts*, Taking metformin hydrochloride 1000 MG Oral Tablet ORAL , Notes to Pharmacist: metformin hydrochloride 1000 MG Oral TabletOriginal Medicationmetformin hydrochloride 1000 MG Oral Tablet *Reorder from [facility] for eRx and Interaction Alerts*, Medication List reviewed and reconciled with the patient * Allergies: C odeine: Allergy - Onset Date 11/06/2012. Objective: * Vitals: * Examination: P hysical Examination: General appearance: A lert, pleasant, well-nourished and in no acute distress. D ermatologic: Skin findings: S kin is thin, atrophic and lacking pedal hair. Hypertrophic / hyperkeratotic lesion: d istal tip of the left 4th digit. Nail pathology: N ails 1, 2, 3, 4, and 5 bilateral are elongated, thick, discolored, and dystrophic with subungual debris. They are painful to palpation. ? V ascular: Dorsalis pedis pulse: 1 /4 b ilateral. Posterior tibial pulse: 0 /4 bilateral. Capillary refill: g reater than 3 seconds. Edema: N o edema bilateral. N eurologic: Gross sensation G rossly intact to light touch. There is negative Tinel's sign. M usculoskeletal: Muscle Strength M uscle strength is 5/5 in regards to dorsiflexion, plantarflexion, inversion, and eversion in bilateral lower extremities. ? Assessment: * Assessment: 1. T inea unguium - B35.1 (Primary) 2 . P ain in right foot - M79.671 ? 3 . P ain in left foot - M79.672 4 . A therosclerosis of apache arteries of extremities with intermittent claudication, bilateral legs - I70.213 5 . Acquired keratosis [keratoderma] palmaris et plantaris - L85.1 Plan: * Treatment: 2. A cquired keratosis [keratoderma] palmaris et plantaris Notes: A total of 1 corns or calluses, as described in the note above, were cut and pared utilizing a #15 blade * Procedure Codes: 1 1055 TRIM SKIN LESION, Modifiers: Q8 , 93824 DEBRIDE NAIL, 6 OR MORE, Modifiers: 59 , Q8 * Follow Up: 1 0 - 12 weeks (Reason: At-Risk Foot care, sooner if problems develop.) * Billing Information: * Visit Code: * Procedure Codes: 89832 TRIM SKIN LESION. Modifiers: Q8 73565 DEBRIDE NAIL, 6 OR MORE. Modifiers: 59, Q8 * Sign off status: Completed true * Provider: Gabino Pacheco DPM Date: 1 Generated for Mame mcmullen/Smith/Samiraitting on: 0 01/21/2025 12:07 AM DEAF/HARD OF HEARING SPECIALIST History and Physical Notes * HPI (History [...]
--- OUTSIDE RECORDS SUMMARY | 2025-01-21 00:08 | XMS_ITS | Encounter Summary ---
Author Organization [facility] Facility Care Team Providers Care Group Segment Consultant Name Role Phone Juana Mesa MD Primary Care Provider [phone] Sharlene Meléndez TOY MAKER Unavailable [phone] Sharlene Meléndez TOY MAKER Unavailable [phone] Lissette Riley Unavailable No, Physician Primary Care Provider Paulette Pireto OUTSIDE SALES ACCOUNT REPRESENTATIVE Primary Care Provider [phone] Meredith Aburto OUTSIDE SALES ACCOUNT REPRESENTATIVE Primary Care Provi arlette No, Physician Primary Care Provider [phone] Encounter Details Date Type Department Care Team (Latest Contact Info) Description 12/25/2017 Orders Only [facility] CLINCON[facility] ProviderDwayne MD [address] [place] [address] Social History Tobacco Use Types Packs/Day Years Used Date Smoking Tobacco: Never Assessed Alcohol Use Standard Drinks/Week Comments Yes 0 (1 standard drink = 0.6 oz pur e alcohol) Comments Unknown Sex and Gender Information Value Date Recorded Sex Assigned at Not on file Legal Sex Female 9:08 AM DEALER DEVELOPMENT MANAGER Gender Identity Female 06/25/2019 7:13 AM CDT Sexual Orientation Not on file documented as of this encounter Plan of Treatment Not on file documented as of this encounter Procedures Procedure Name Priority Date/Time Associated Diagnosis Comments SCAN - LABS 12/25/2017 12:00 AM DEALER DEVELOPMENT MANAGER documented in this encounter Results * SCAN - LABS (12/25/2017 12:00 AM DEALER DEVELOPMENT MANAGER) Narrative 12/25/2017 12:00 AM DEALER DEVELOPMENT MANAGER Ordered by an unspecified provider. us Historical Provider Final Res ult documented in this encounter Visit Diagnoses Not on filedocumented in this encounter Additional Health Concerns Infection Onset Date Last Indicated Resolved Time C. difficile Comment:No further diarrhea 04/18/2017 04/17/2017 12/30/2021 2 :39 PM DEALER DEVELOPMENT MANAGER COVID: Suspected 07/05/2020 07/05/2020 07/19/2020 3:05 AM CDT COVID: Suspected 07/01/2021 07/01/2021 07/01/2021 2:38 PM CDT COVID: Suspected 07/01/2021 07/01/2021 07/01/2021 9:10 PM CDT COVID19 07/01/2021 07/01/2021 07/15/2021 3:05 AM CDT COVID: Recovered Comment:Added based on recent COVID infection. 07/15/2021 07/15/2021 11/12/2021 3:[address] COVID: Suspected 11/28/2021 11/28/2021 11/28/2021 7:00 PM DEALER DEVELOPMENT MANAGER COVID19 11/28/2021 11/28/2021 12/12/2021 3:05 AM DEALER DEVELOPMENT MANAGER COVID: Recovered Comment:Added based on recent COVID infection. 12/12/2021 12/12/2021 04/11/2022 3:05 AM C DT COVID: Suspected 07/05/2022 07/05/2022 07/05/2022 10:39 PM CDT MRSA 07/06/2022 07/06/2022 01/02/2023 3:05 AM DEALER DEVELOPMENT MANAGER COVID19 12/02/2022 12/02/2022 12/13/2022 3:05 AM DEALER DEVELOPMENT MANAGER COVID: Recovered Comment:Added based on recent COVID infection. 12/13/2022 12/15/2022 03/13/2023 3:05 AM C DT Exposure, COVID-19 Comment:No direct exposure. Pt in COVID recovery window. No concern for new infection. Ana Aguilera 01/15/2023 Added automatically based on COVID19 lab answers indicating exposure risk 01/14/2023 01/14/2023 01/15/2023 10:17 AM DEALER DEVELOPMENT MANAGER COVID: Suspected 01/14/2023 01/14/2023 01/14/2023 6:42 PM DEALER DEVELOPMENT MANAGER Human metapneumovirus, conta ct + droplet 01/14/2023 01/14/2023 01/21/2023 3:[address] COVID: Suspected 01/30/2023 01/30/2023 01/30/2023 10:06 PM DEALER DEVELOPMENT MANAGER documented as of this encounter Care Teams Group Segment Consultant Relationship Specialty Start Date End Date Juana Mesa MD [address] [facility] [address] [place] [address] PCP - General 11/26/17 10/26/18 No, Physician PCP - General 06/20/22 06/21/22 Paulette Prieto, CARMEN [address] [place] [address] PCP - General Nurse Practitioner 06/22/22 08/16/23 Meredith Aburto NP [address] [place] [address] PCP - General Family Medicine 08/17/23 09/11/24 No, Physician PCP - General 09/12/24 Sharlene Meléndez LPN [address] [place] [address] Dr Pruett [address] [place] [address] Operating Room Surgical Technologist 07/02/18 07/02/18 Sharlene Meléndez LPN [address] [facility] [address] [place] [address] Operating Room Surgical Technologist 11/05/19 11/05/19 Lissette Riley [address] [place] [address] ACO Care Obiee Consultant 01/15/20 01/15/20 documented as of this encounter
--- OUTSIDE RECORDS SUMMARY | 2025-01-21 00:08 | XMS_ITS | Encounter Summary ---
Author Organization [facility] Facility Care Team Providers Care Brick Setter Operator Name Role Phone Juana Mesa MD Primary Care Provider [phone] Sharlene Meléndez LPN Unavailable Lissette Riley Unavailable No, Physician Primary Care Provider [phone] Paulette Prieto BOAT OUTFITTER Primary Care Provider [phone] Meredith Aburto BOAT OUTFITTER Primary Care Provi arlette No, Physician Primary Care Provider [phone] Encounter Details Date Type Department Care Team (Latest Contact Info) Description 08/06/2018 Orders Only [facility] CLINCONV ProviderDwayne MD [address] [place] [address] Social History Tobacco Use Types Packs/Day Years Used Date Smoking Tobacco: Former Smokeless Tobacco: Never Alcohol Use Standard Drinks/Week Comments Yes 0 (1 standard drink = 0.6 oz pur e alcohol) Comments Unknown Sex and Gender Information Value Date Recorded Sex Assigned at Not on file Legal Sex Female 9:08 AM PATCHER HELPER Gender Identity Female 06/25/2019 7:13 AM CDT [...] diarrhea 04/18/2017 04/17/2017 12/30/2021 2 :39 PM PATCHER HELPER COVID: Suspected 07/05/2020 07/05/2020 07/19/2020 3:05 AM CDT COVID: Suspected 07/01/2021 07/01/2021 07/01/2021 2:38 PM CDT COVID: Suspected 07/01/2021 07/01/2021 07/01/2021 9:10 PM CDT COVID19 07/01/2021 07/01/2021 07/15/2021 3:05 AM CDT COVID: Recovered Comment:Added based on recent COVID infection. 07/15/2021 07/15/2021 11/12/2021 3:[address] COVID: Suspected 11/28/2021 11/28/2021 11/28/2021 7:00 PM PATCHER HELPER COVID19 11/28/2021 11/28/2021 12/12/2021 3:05 AM PATCHER HELPER COVID: Recovered Comment:Added based on recent COVID infection. 12/12/2021 12/12/2021 04/11/2022 3:05 AM C DT COVID: Suspected 07/05/2022 07/05/2022 07/05/2022 10:39 PM CDT MRSA 07/06/2022 07/06/2022 01/02/2023 3:05 AM PATCHER HELPER COVID19 12/02/2022 12/02/2022 12/13/2022 3:05 AM PATCHER HELPER COVID: Recovered Comment:Added based on recent COVID infection. 12/13/2022 12/15/2022 03/13/2023 3:05 AM C DT Exposure, COVID-19 Comment:No direct exposure. Pt in COVID recovery window. No concern for new infection. Ana Aguilera 01/15/2023 Added automatically based on COVID19 lab answers indicating exposure risk 01/14/2023 01/14/2023 01/15/2023 10:17 AM PATCHER HELPER COVID: Suspected 01/14/2023 01/14/2023 01/14/2023 6:42 PM PATCHER HELPER Human metapneumovirus, conta ct + droplet 01/14/2023 01/14/2023 01/21/2023 3:[address] COVID: Suspected 01/30/2023 01/30/2023 01/30/2023 10:06 PM PATCHER HELPER documented as of this encounter Care Teams Brick Setter Operator Relationship Specialty Start Date End Date Juana Mesa MD [address] [facility] [address] [place] [address] PCP - General 11/26/17 10/26/18 No, Physician PCP - General 06/20/22 06/21/22 Paulette Prieto NP [address] [place] [address] PCP - General Nurse Practitioner 06/22/22 08/16/23 Meredith Aburto NP [address] [place] [address] PCP - General Family Medicine 08/17/23 09/11/24 No, Physician PCP - General 09/12/24 Sharlene Meléndez LPN [address] [facility] [address] [place] [address] Policy Service Coordinator 11/05/19 11/05/19 Lissette Riley [address] [place] [address] [place] [address] ACO Care Manager Web Application 01/15/20 01/15/20 documented as of this encounter
--- OUTSIDE RECORDS SUMMARY | 2025-01-21 00:08 | XMS_ITS | Encounter Summary ---
Author Organization [facility] Facility Care Team Providers Care Self Propelled Mining Machine Operator Name Role Phone Dariel De Souza MD Primary Care Provider [phone] Bebo Hansen MD Primary Care Provider [phone] Juana Mesa MD Primary Care Provider [phone] Juana Mesa MD Primary Care Provider [phone] Sharlene Meléndez LPN Unavailable [phone] Sharlene Meléndez LPN Unavailable [phone] Lissette Riley Unavailable No, Physician Primary Care Provider [phone] Paulette Prieto FRONT DESK AUXILIARY Primary Care Provider [phone] Meredith Aburto FRONT DESK AUXILIARY Primary Care Provi arlette No, Physician Primary Care Provider [phone] Encounter Details Date Type Department Care Team (Latest Contact Info) Description 03/26/2017 Orders Only [facility] CLINCONV Provider, MD Dwayne [address] [place] [address] Social History Tobacco Use Types Packs/Day Years Used Date Smoking Tobacco: Never Assessed Alcohol Use Standard Drinks/Week Comments Yes 0 (1 standard drink = 0.6 oz pur e alcohol) Comments Unknown Sex and Gender Information Value Date Recorded Sex Assigned at Not on file Legal Sex Female 9:08 AM TIRE STRIPPER Gender Identity Female 06/25/2019 7:13 AM CDT [...] diarrhea 04/18/2017 04/17/2017 12/30/2021 2 :39 PM TIRE STRIPPER COVID: Suspected 07/05/2020 07/05/2020 07/19/2020 3:05 AM CDT COVID: Suspected 07/01/2021 07/01/2021 07/01/2021 2:38 PM CDT COVID: Suspected 07/01/2021 07/01/2021 07/01/2021 9:10 PM CDT COVID19 07/01/2021 07/01/2021 07/15/2021 3:05 AM CDT COVID: Recovered Comment:Added based on recent COVID infection. 07/15/2021 07/15/2021 11/12/2021 3:[address] COVID: Suspected 11/28/2021 11/28/2021 11/28/2021 7:00 PM TIRE STRIPPER COVID19 11/28/2021 11/28/2021 12/12/2021 3:05 AM TIRE STRIPPER COVID: Recovered Comment:Added based on recent COVID infection. 12/12/2021 12/12/2021 04/11/2022 3:05 AM C DT COVID: Suspected 07/05/2022 07/05/2022 07/05/2022 10:39 PM CDT MRSA 07/06/2022 07/06/2022 01/02/2023 3:05 AM TIRE STRIPPER COVID19 12/02/2022 12/02/2022 12/13/2022 3:05 AM TIRE STRIPPER COVID: Recovered Comment:Added based on recent COVID infection. 12/13/2022 12/15/2022 03/13/2023 3:05 AM C DT Exposure, COVID-19 Comment:No direct exposure. Pt in COVID recovery window. No concern for new infection. Ana Aguilera 01/15/2023 Added automatically based on COVID19 lab answers indicating exposure risk 01/14/2023 01/14/2023 01/15/2023 10:17 AM TIRE STRIPPER COVID: Suspected 01/14/2023 01/14/2023 01/14/2023 6:42 PM TIRE STRIPPER Human metapneumovirus, conta ct + droplet 01/14/2023 01/14/2023 01/21/2023 3:[address] COVID: Suspected 01/30/2023 01/30/2023 01/30/2023 10:06 PM TIRE STRIPPER documented as of this encounter Care Teams Self Propelled Mining Machine Operator Relationship Specialty Start Date End Date Dariel De Souza MD [address] [address] PCP - General 11/06/07 06/14/17 Bebo Hansen MD [address] [place] [address] PCP - General 06/15/17 10/16/17 Juana Mesa MD [address] [facility] [address] [place] [address] PCP - General 10/17/17 11/25/17 Juana Mesa MD [address] [address] PCP - General 11/26/17 10/26/18 No, Physician PCP - General 06/20/22 06/21/22 Paulette Prieto, CARMEN [address] [place] [address] PCP - General Nurse Practitioner 06/22/22 08/16/23 Meredith Aburto NP [address] [place] [address] PCP - General Family Medicine 08/17/23 09/11/24 No, Physician PCP - General 09/12/24 Sharelne Meléndez LPN [address] [place] [address] Bag Machine Operator 07/02/18 07/02/18 Sharlene Meléndez LPN [address] [place] [address] Bag Machine Operator 11/05/19 11/05/19 Lissette Riley [address] [place] [address] ACO Care Human Resources Psychologist 01/15/20 01/15/20 documented as of this encounter
--- OUTSIDE RECORDS SUMMARY | 2025-01-21 00:08 | XMS_ITS | Encounter Summary ---
Author Organization [facility] Facility Care Team Providers Care Roving Sizer Name Role Phone Juana Mesa MD Primary Care Provider [phone] Sharlene Meléndez PREPARER SAMPLES AND REPAIRS Unavailable [phone] Sharlene Meléndez PREPARER SAMPLES AND REPAIRS Unavailable [phone] Lissette Riley Unavailable No, Physician Primary Care Provider [phone] Paulette Prieto COLLOID MILL OPERATOR Primary Care Provider [phone] Meredith Aburto COLLOID MILL OPERATOR Primary Care Provi arlette No, Physician Primary Care Provider [phone] Encounter Details Date Type Department Care Team (Latest Contact Info) Description 01/02/2018 Orders Only [facility] CLINCONV ProviderDwayne MD [address] [place] [address] Social History Tobacco Use Types Packs/Day Years Used Date Smoking Tobacco: Former Alcohol Use Standard Drinks/Week Comments Yes 0 (1 standard drink = 0.6 oz pur e alcohol) Comments Unknown Sex and Gender Information Value Date Recorded Sex Assigned at Not on file Legal Sex Female 9:08 AM BARREL BRIDGE ASSEMBLER Gender Identity Female 06/25/2019 7:13 AM CDT Sexual Orientation Not on file documented as of this encounter Plan of Treatment Not on file documented as of this encounter Procedures Procedure Name Priority Date/Time Associated Diagnosis Comments SCAN - LABS 01/02/2018 12:00 AM BARREL BRIDGE ASSEMBLER documented in this encounter Results * SCAN - LABS (01/02/2018 12:00 AM BARREL BRIDGE ASSEMBLER) Narrative 01/02/2018 12:00 AM BARREL BRIDGE ASSEMBLER Ordered by an unspecified provider. us Historical Provider MD Final Res ult documented in this encounter Visit Diagnoses Not on filedocumented in this encounter Additional Health Concerns Infection Onset Date Last Indicated Resolved Time C. difficile Comment:No further diarrhea 04/18/2017 04/17/2017 12/30/2021 2 :39 PM BARREL BRIDGE ASSEMBLER COVID: Suspected 07/05/2020 07/05/2020 07/19/2020 3:05 AM CDT COVID: Suspected 07/01/2021 07/01/2021 07/01/2021 2:38 PM CDT COVID: Suspected 07/01/2021 07/01/2021 07/01/2021 9:10 PM CDT COVID19 07/01/2021 07/01/2021 07/15/2021 3:05 AM CDT COVID: Recovered Comment:Added based on recent COVID infection. 07/15/2021 07/15/2021 11/12/2021 3:[address] COVID: Suspected 11/28/2021 11/28/2021 11/28/2021 7:00 PM BARREL BRIDGE ASSEMBLER COVID19 11/28/2021 11/28/2021 12/12/2021 3:05 AM BARREL BRIDGE ASSEMBLER COVID: Recovered Comment:Added based on recent COVID infection. 12/12/2021 12/12/2021 04/11/2022 3:05 AM C DT COVID: Suspected 07/05/2022 07/05/2022 07/05/2022 10:39 PM CDT MRSA 07/06/2022 07/06/2022 01/02/2023 3:05 AM BARREL BRIDGE ASSEMBLER COVID19 12/02/2022 12/02/2022 12/13/2022 3:05 AM BARREL BRIDGE ASSEMBLER COVID: Recovered Comment:Added based on recent COVID infection. 12/13/2022 12/15/2022 03/13/2023 3:05 AM C DT Exposure, COVID-19 Comment:No direct exposure. Pt in COVID recovery window. No concern for new infection. Ana Aguilera 01/15/2023 Added automatically based on COVID19 lab answers indicating exposure risk 01/14/2023 01/14/2023 01/15/2023 10:17 AM BARREL BRIDGE ASSEMBLER COVID: Suspected 01/14/2023 01/14/2023 01/14/2023 6:42 PM BARREL BRIDGE ASSEMBLER Human metapneumovirus, conta ct + droplet 01/14/2023 01/14/2023 01/21/2023 3:[address] COVID: Suspected 01/30/2023 01/30/2023 01/30/2023 10:06 PM BARREL BRIDGE ASSEMBLER documented as of this encounter Care Teams Roving Sizer Relationship Specialty Start Date End Date Juana Mesa MD [address] [facility] [address] [place] [address] PCP - General 11/26/17 10/26/18 No, Physician PCP - General 06/20/22 06/21/22 Paulette Prieto, CARMEN [address] [place] [address] PCP - General Nurse Practitioner 06/22/22 08/16/23 Meredith Aburto NP [address] [place] [address] PCP - General Family Medicine 08/17/23 09/11/24 No, Physician PCP - General 09/12/24 Sharlene Meléndez LPN [address] [place] [address] [address] [place] [address] Wrapping Machine Tender 07/02/18 07/02/18 Sharlene Meléndez LPN [address] [facility] [address] [place] [address] Wrapping Machine Tender 11/05/19 11/05/19 Lissette Riley [address] [place] [address] ACO Care Hiv Counselor 01/15/20 01/15/20 documented as of this encounter
--- OUTSIDE RECORDS SUMMARY | 2025-01-21 00:08 | XMS_ITS | Patient Health Record ---
Author Organization [facility] Address [address] [place], [place] [id number] Care Team Providers Care Coal Pulverizing Operator Name Role Phone LINDA PACHECO Unavailable [phone] Stone, Crystal Unavailable Unavailable Allergies Allergen (clinical [...] Medicationfurosemide 40 MG Oral Tablet *Reorder from [employer] for eRx and Interaction Alerts* 2 Active Warfarin Sodium 10 MG Oral Tablet ORAL warfarin sodium 10 MG Oral TabletOriginal Medicationwarfarin sodium 10 MG Oral Tablet *Reorder from [employer] for eRx and Interaction Alerts* 2 Active isopropyl alcohol 0.7 ML/ML Medicated Pad isopropyl alcohol 0.7 ML/ML Medicated PadOriginal Medicationisopropyl alcohol 0.7 ML/ML Medicated Pad *Reorder from [employer] for eRx and Interaction Alerts* 2 05/29/20 29 Active metformin hydrochloride 1000 MG Oral Tablet ORAL metformin hydrochloride 1000 MG Oral TabletOriginal Medicationmetformin hydrochloride 1000 MG Oral Tablet *Reorder from [employer] for eRx and Interaction Alerts* 2 Active digoxin 0.125 MG Oral Tablet ORAL digoxin 0.125 MG Oral TabletOriginal Medicationdigoxin 0.125 MG Oral Tablet *[facility]Rx and Interaction Alerts* 2 Active insulin aspart, human 100 UNT/ML Injectable Solution [NovoLog] insulin aspart, human 100 UNT/ML Injectable Solution [NovoLog]Original Medicationinsulin aspart, human 100 UNT/ML Injectable Solution [NovoLog] *Reorder from [facility] for eRx and Interaction Alerts* 2 Active clobetasol propionate 0.0005 MG/MG Topical Ointment CUTANEOUS clobetasol propionate 0.0005 MG/MG Topical OintmentOriginal Medicationclobetasol propionate 0.0005 MG/MG Topical Ointment *Reorder from [facility] for eRx and Interaction Alerts* 3 Active colchicine 0.6 MG Oral Tablet [Colcrys] ORAL colchicine 0.6 MG Oral Tablet [Colcrys]Original Medicationcolchicine 0.6 MG Oral Tablet [Colcrys] *Reorder from [facility] for eRx and Interaction Alerts* 4 Active Carvedilol 12.5 MG Oral Tablet ORAL carvedilol 12.5 MG Oral TabletOriginal Medicationcarvedilol 12.5 MG Oral Tablet *Reorder from [facility] for eRx and Interaction Alerts* 2 Active ciprofloxacin 500 MG Oral Tablet [Cipro] ORAL ciprofloxacin 500 MG Oral Tablet [Cipro]Original Medicationciprofloxacin 500 MG Oral Tablet [Cipro] *Reorder from [facility] for eRx and Interaction Alerts* 7 Active Lisinopril 2.5 MG Oral Tablet ORAL lisinopril 2.5 MG Oral TabletOriginal Medicationlisinopril 2.5 MG Oral Tablet *Reorder from [facility] for eRx and Interaction Alerts* 2 Active Vital Signs Height-cm 167.64 cm 06/09/2024 Weight-kg 93.44 kg 06/09/2024 Height 66.00 in 06/09/2024 Weight 206 lbs 06/09/2024 BMI 33.25 kg/m2 06/09/2024 Encounters Encounter Location Date Provider Diagnosis [facility] [place] [address] [place] [id number] 01/21/2024 LINDA SNOOK 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 ; 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 ; Acquired keratosis [keratoderma] palmaris et plantaris L85.1 and Left foot pain M79.672 [facility] [place] [address] [place] [id number] 03/24/2024 LINDA PACHECO Tinea unguium B35.1 ; Pain in right toe(s) M79.674 ; Pain in left toe(s) M79.675 ; Atherosclerosis of council arteries of extremities with intermittent claudication, bilateral legs I70.213 and Type 2 diabetes mellitus with other circulatory complications E11.59 [facility] [place] [address] [place] [id number] 06/09/2024 LINDA PACHECO Tinea unguium B35.1 ; Pain in right toe(s) M79.674 ; Pain in left toe(s) M79.675 ; Atherosclerosis of council arteries of extremities with intermittent claudication, bilateral legs I70.213 and Type 2 diabetes mellitus with other circulatory complications E11.59 [facility] [place] [address] [place] [id number] 09/15/2024 LINDA PACHECO Tinea unguium B35.1 ; Pain in right foot M79.671 ; Pain in left foot M79.672 ; Atherosclerosis of council arteries of extremities with intermittent claudication, bilateral legs I70.213 and Acquired keratosis [keratoderma] palmaris et plantaris L85.1 [facility] [address] [facility] [address] [place], [place] [id number] 03/31/2024 LINDA PACHECO [facility] [place] [address] [address] [place] [id number] 06/01/2024 Assessments Encounter Date Diagnosis (ICD Code) [...] the patient use an emollient such as [id number] Eucerin cream, Vanicream, or other lotion to the affected area. 01/21/2024 Left foot pain (ICD-10 - M79.672) 03/24/2024 Atherosclerosis of council arteries of extremities with intermittent claudication, bilateral legs (ICD-10 - I70.213) 09/15/2024 Atherosclerosis of council arteries of extremities with intermittent claudication, bilateral legs (ICD-10 - I70.213) 06/09/2024 Atherosclerosis of council arteries of extremities with intermittent claudication, bilateral [...] diabetic shoes and inserts Plan Of Treatment No Information Insurance Providers Payer Name Payer Address Payer Phone Subscriber Number Group Number Insured Name Patient Relationship to Insured Coverage Start Date Coverage End Date Medicare Part B [place] [address] [place] [address] [id number] MAI HENDERSON CH Self - patient is the insured [facility] [address] [address] [place], [place] [id number] MAI HENDERSON CH Self - patient is the insured
--- OUTSIDE RECORDS SUMMARY | 2025-01-21 00:08 | XMS_ITS | Data Portability ---
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 bone density test. Wants to have it done at [facility]. Signs and symptoms of when to seek [...] plan. F/U 4 weeks, sooner if needed [email or web address] Not available 04/02/2023 08:46:41 04/30/2023 04/30/2023 Medication [...] plan. F/U 4 weeks, sooner if needed [email or web address] Not available 04/30/2023 12:45:01 05/28/2023 05/28/2023 Medication Changes Bone density order sent to [place] Signs and symptoms of when to seek [...] 4 weeks, sooner if needed Not available 05/28/2023 17:28:40 06/25/2023 06/25/2023 Medication [...] plan. F/U 4 weeks, sooner if needed [email or web address] Not available 06/24/2023 11:14:14 07/17/2023 07/17/2023 Medication [...] for females it can be a constant joens. Signs and symptoms of when to seek [...] plan. F/U 4 weeks, sooner if needed [email or web address] Not available 07/17/2023 14:13:10 Plan of Treatment Reminders Order Date Submit Date Provider Last Modified By Organization Details Last Modified Time Details Appointments None recorded. Lab HbA1c (hemoglobi n A1c), blood [address], [place], [address], 3 09:50:32 urinalysis , dipstick, reflex micro [address], [place], [address], 3 17:38:51 unlisted lab - vitamin D total, 25-hydroxy * [address], [place], [address], 3 09:50:34 CMP, serum or plasma [address], [place], [address], 3 09:50:33 magnesium, serum or plasma [address], [place], [address], 3 09:50:34 unlisted lab - complete blood count with auto diff* [address], [place], [address], 3 09:50:31 lipid panel, serum 2022 023 [facility]AN[facility] [employer], [address], [place], [address], 3 09:50:33 Referral None recorded. Procedures None recorded. Surgeries None recorded. Imaging bone density [address], [facility] [facility] [address], [place], [address], 3 12:45:12 bone density 2022 023 [facility], [facility]0 [facility] [address], [place], [address], 3 15:55:16 Medication Orders Zeasorb AF 2 % topical powder 2022 023 RANJIT Not available 3 10:07:09 mupirocin 2 % topical ointment 2022 023 RANJIT Not available 3 10:07:05 escitalopr am 10 mg tablet 2022 023 RANJIT Not available 3 10:01:27 True Metrix Glucose Test Strip 2022 [address] [place] [address] Not available 3 11:35:23 Alcohol Prep Pads 2022 023 RANJIT Not available 3 10:01:22 nystatin 100,000 unit/gram topical powder 2022 023 RANJIT Not available 3 10:01:33 cholecalci ferol (vitamin D3) 125 mcg (5,000 unit) tablet 2022 023 RANJIT Not available 3 12:47:27 nystatin 100,000 unit/gram topical cream 2022 023 [email or web address] Not available 3 17:25:22 triamcinol one acetonide 0.1 % topical cream 2022 023 [email or web address] Not available 17:25:44 Patient TargetsNo targets recorded. Patient Instructions Encounter Date Encounter Id Patient Instructions Last Modified By Organization Details Last Modified Time 04/02/2023 [id number] instructions to assisted living home* - UA order sent to [facility]. Please obtain urine and send to [employer]. [employer] Not available 04/02/2023 11:32:08 Ozempic going through patient assistance? I know we did Jackson and Eddie via patient assistance. [email or web address] Not available 03/28/2023 06:39:52 05/28/2023 [id number] care plan* [email or web address] Not available 01/2023 17:30:14 Reason for Referral None Reported. Results Created Date Observation Date Name Description Value Unit Range Abnormal Flag Note LastModifiedBy Organization Detail LastModifiedTime 04/02/2004/02/2023 URINA LYSIS REFLE X TO MICRO SCOPI C* urine color YELLOW yellow Not Available [employer] [employer] [address], [place], [address], 04/04/2023 17:38:51 04/02/2004/02/2023 URINA LYSIS REFLE X TO MICRO SCOPI C* urine clarity CLOUDY clear abnormal Not Available [facility] [employer] [address], [place], [address], 04/04/2023 17:38:51 04/02/20 23 04/02/2023 URINA LYSIS REFLE X TO MICRO SCOPI C* urine glucose 250 mg/dL negati ve abnormal Not Available [employer] [address], [place], [address], 04/04/2023 17:38:51 04/02/20 23 04/02/2023 URINA LYSIS REFLE X TO MICRO SCOPI C* urine bilirubin NEGATI VE negati ve Not Available [employer] [address], [place], [address], 04/04/2023 17:38:51 04/02/20 23 04/02/2023 URINA LYSIS REFLE X TO MICRO SCOPI C* urine ketones NEGATI VE mg/dL negati ve Not Available [employer] [address], [place], [address], 04/04/2023 17:38:51 04/02/20 23 04/02/2023 URINA LYSIS REFLE X TO MICRO SCOPI C* urine specific gravity 1.020 1.002- 1.030 Not Available [employer] [address], [place], [address], 04/04/2023 17:38:51 04/02/20 23 04/02/2023 URINA LYSIS REFLE X TO MICRO SCOPI C* urine blood MODERA TE negati ve abnormal Not Available [employer] [address], [place], [address], 04/04/2023 17:38:51 04/02/20 23 04/02/2023 URINA LYSIS REFLE X TO MICRO SCOPI C* urine pH 6.5 5.0-8. 0 Not Available [employer] [address], [place], [address], 04/04/2023 17:38:51 04/02/20 23 04/02/2023 URINA LYSIS REFLE X TO MICRO SCOPI C* urine protein 100 mg/dL negati ve abnormal Not Available [employer] [address], [place], [address], 04/04/2023 17:38:51 04/02/20 23 04/02/2023 URINA LYSIS REFLE X TO MICRO SCOPI C* urine urobilinogen 0.2 eu/dL 0.2-1. 0 Not Available [employer] [address], [place], [address], 04/04/2023 17:38:51 04/02/20 23 04/02/2023 URINA LYSIS REFLE X TO MICRO SCOPI C* urine nitrites NEGATI VE negati ve Not Available [employer] [address], [place], [address], 04/04/2023 17:38:51 04/02/20 23 04/02/2023 URINA LYSIS REFLE X TO MICRO SCOPI C* urine leukocytes SMALL negati ve abnormal Not Available [employer] [address], [place], [address], 04/04/2023 17:38:51 04/02/20 23 04/02/2023 URINE MICRO SCOPI C* white blood cells (WBC) >30/HP F /hpf 0-3/hp f abnormal Refer ence Range s Femal e: 0-5/H PF Male: 0-3/H PF Not Available [facility] [address], [place], [address], 04/04/2023 17:38:52 04/02/20 23 04/02/2023 URINE MICRO SCOPI C* red blood cells (RBC) 3-5/HP F /hpf 0-2/hp f abnormal Not Available [facility] [address], [place], [address], 04/04/2023 17:38:52 04/02/20 23 04/02/2023 URINE MICRO SCOPI C* epithelial cells 0-5/HP F /hpf 0-5/hp f Not Available [employer] [address], [place], [address], 04/04/2023 17:38:52 04/02/20 23 04/02/2023 URINE MICRO SCOPI C* bacteria 2+ none abnormal Not Available [employer] [address], [place], [address], 04/04/2023 17:38:52 04/03/20 23 04/03/2023 COMPL ETE BLOOD COUNT WITH AUTO DIFF* WBC 5.14 10E3/ uL 4.50-1 1.50 Not Available [employer] [address], [place], [address], 04/05/2023 09:50:31 04/03/20 23 04/03/2023 COMPL ETE BLOOD COUNT WITH AUTO DIFF* RBC 3.64 10E6/ uL 4.00-5 .40 low Not Available [employer] [address], [place], [address], 04/05/2023 09:50:31 04/03/20 23 04/03/2023 COMPL ETE BLOOD COUNT WITH AUTO DIFF* HGB 11.0 g/dL 12.0-1 5.0 low Not Available [employer] [address], [place], [address], 04/05/2023 09:50:31 04/03/20 23 04/03/2023 COMPL ETE BLOOD COUNT WITH AUTO DIFF* HCT 36.6 % 35.0-4 9.0 Not Available [employer] [address], [place], [address], 04/05/2023 09:50:31 04/03/2004/03/2023 COMPL ETE BLOOD COUNT WITH AUTO DIFF* MCV 101 fL 80-100 high Not Available [employer] [address], [place], [address], 04/05/2023 09:50:31 04/03/20 23 04/03/2023 COMPL ETE BLOOD COUNT WITH AUTO DIFF* MCH 30 pg 26-32 Not Available [employer] [address], [place], [address], 04/05/2023 09:50:31 04/03/2004/03/2023 COMPL ETE BLOOD COUNT WITH AUTO DIFF* MCHC 30 g/dL 32-36 low Not Available [employer] [address], [place], [address], 04/05/2023 09:50:31 04/03/20 23 04/03/2023 COMPL ETE BLOOD COUNT WITH AUTO DIFF* RDW 19.6 % 11.5-1 4.5 high Not Available [employer] [address], [place], [address], 04/05/2023 09:50:31 04/03/20 23 04/03/2023 COMPL ETE BLOOD COUNT WITH AUTO DIFF* plt 143 10E3/ uL 150-45 0 low Not Available [employer] [address], [place], [address], 04/05/2023 09:50:31 04/03/20 23 04/03/2023 COMPL ETE BLOOD COUNT WITH AUTO DIFF* reflex MANUAL DIFFER ENTIAL Not Available [facility] [address], [place], [address], 04/05/2023 09:50:31 04/03/20 23 04/03/2023 HEMOG LOBIN A1C* hemoglobin A1C 5.8 % 3.7-6. 2 Not Available [employer] [address], [place], [address], 04/05/2023 09:50:32 04/03/2004/03/2023 HEMOG LOBIN A1C* EAG 120 mg/dL Nakia l: 69-11 4 mg/dL Predi abete s: 117-1 37 mg/dL Diabe los: 140 mg/dL or Great er Not Available [employer] [address], [place], [address], 04/05/2023 09:50:32 04/03/20 23 04/03/2023 LIPID PANEL * cholesterol 116 mg/dL <200 Natio nal Bharati stero l Educa tion Progr am (NCEP ) guide lines : Cierra able: <200 mg/dL Borde rline : 200-2 39 mg/dL High: =>240 mg/dL Not Available [facility] [address], [place], [address], 04/05/2023 09:50:33 04/03/20 23 04/03/2023 LIPID PANEL * LDL 56 mg/dL <100 Natio nal Bharati stero l Educa tion Progr am (NCEP ) Guide lines : Optim al: <100 mg/dL Near Optim al: 100 - 129 mg/dL Borde rline : 130 - 159 mg/dL High: 160 - 189 mg/dL Very High: =>190 mg/dL Not Available [employer] [address], [place], [address], 04/05/2023 09:50:33 04/03/20 23 04/03/2023 LIPID PANEL * HDL 54 mg/dL 40-59 Natio nal Bharati stero l Educa tion Progr am (NCEP ) guide lines : Low: <40 mg/dL High: =>60 mg/dL Not Available [employer] [address], [place], [address], 04/05/2023 09:50:33 04/03/20 23 04/03/2023 LIPID PANEL * triglyceride s 56 mg/dL <150 Natio nal Bharati stero l Educa tion Progr am (NCEP ) guide lines : Nakia l: <150 mg/dL Borde rline : 150-1 99 mg/dL High: 200-4 99 mg/dL Very High: =>500 mg/dL Not Available [facility] [address], [place], [address], 04/05/2023 09:50:33 04/03/20 23 04/03/2023 LIPID PANEL * VLDL 11 mg/dL <30 Not Available [facility] [address], [place], [address], 04/05/2023 09:50:33 04/03/20 23 04/03/2023 MAGNE SIUM* magnesium 1.60 mg/dL 1.60-2 .40 Not Available [facility] [address], [place], [address], 04/05/2023 09:50:34 04/03/20 23 04/03/2023 MANUA L DIFFE RENTI AL* seg 71.0 % 50.0-7 0.0 high Not Available [facility] [address], [place], [address], 04/05/2023 09:50:35 04/03/2004/03/2023 MANUA L DIFFE RENTI AL* lymph 13.0 % 18.0-4 2.0 low Not Available [facility] [address], [place], [address], 04/05/2023 09:50:35 04/03/20 23 04/03/2023 MANUA L DIFFE RENTI AL* mono 9.0 % 2.0-11 .0 Not Available [facility] [address], [place], [address], 04/05/2023 09:50:35 04/03/20 23 04/03/2023 MANUA L DIFFE RENTI AL* eos 6.0 % 1.0-3. 0 high Not Available [facility] [address], [place], [address], 04/05/2023 09:50:35 04/03/20 23 04/03/2023 MANUA L DIFFE RENTI AL* baso 0.0 % 0.0-2. 0 Not Available [facility] [address], [place], [address], 04/05/2023 09:50:35 04/03/20 23 04/03/2023 MANUA L DIFFE RENTI AL* segabs 3.65 K/uL 2.30-8 .10 Not Available [facility] [address], [place], [address], 04/05/2023 09:50:35 04/03/20 23 04/03/2023 MANUA L DIFFE RENTI AL* lymphabs 0.67 K/uL 0.80-4 .80 low Not Available [facility] [address], [place], [address], 04/05/2023 09:50:35 04/03/2004/03/2023 MANUA L DIFFE RENTI AL* monoabs 0.46 K/uL 0.45-1 .30 Not Available [facility] [address], [place], [address], 04/05/2023 09:50:35 04/03/20 23 04/03/2023 MANUA L DIFFE RENTI AL* eosabs 0.31 K/uL 0.00-0 .40 Not Available [facility] [address], [place], [address], 04/05/2023 09:50:35 04/03/20 23 04/03/2023 MANUA L DIFFE RENTI AL* basoabs 0.00 K/uL 0.00-0 .10 Not Available [facility] [address], [place], [address], 04/05/2023 09:50:35 04/03/20 23 04/03/2023 MANUA L DIFFE RENTI AL* meta 1.0 % Not Available [facility] [address], [place], [address], 04/05/2023 09:50:35 04/03/20 23 04/03/2023 MANUA L DIFFE RENTI AL* metaabs 0.05 K/uL Not Available [facility] [address], [place], [address], 04/05/2023 09:50:35 03/05/20 23 03/04/2023 CT, brain , w/o contr ast No observ ation record ed. [email or web address] [place], [place] [address] [address], [place], [address], 04/02/2023 08:47:01 05/18/20 23 2023 MAMMO , scree sonu, digit al, bilat eral No observ ation record ed. [email or web address] [facility] [address] [facility] [address], [place], [address], 05/28/2023 10:00:11 10/12/20 23 10/10/2023 DEXA No observ ation record ed. [email or web address] [facility] [address] [facility] [address], [place], [address], 10/12/2023 17:37:08 Result Notes None recorded. 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 7162252945 Completed 202106/24/2023 JANNETH Linda, PMHNP-BC [address] [place], [address] , [facility] 3 11:08:17 Chronic obstructi ve pulmonary disease 53631337 Active 2021 Not Available [facility] 4 04:19:09 Atrial fibrillat ion 65552044 Completed 202106/24/2023 JANNETH Linda, PMHNP-BC [address] [place], [address] , [facility] 3 11:08:12 Multiple complicat ions due to type 2 diabetes mellitus Completed 202106/24/2023 JANNETH Linda, PMHNP-BC [address] [place], [address] , [facility] 3 11:08:57 Congestiv e heart failure 27649136 Completed 202106/24/2023 Paulette LibbyJANNETH Lal, PMHNP-BC [address] [place], [address] , [facility] 3 11:08:27 Allergic conjuncti vitis 555421495 Active 2021 Not Available [facility] 4 04:19:09 Allergic rhinitis 53463113 Active 2021 Not Available [facility] 4 04:19:09 Hemorrhoi ds 46933506 Completed 202106/24/2023 Paulette Jones JANNETH Prieto, PMHNP-BC [address] [place], [address] , [facility] 3 11:08:55 Hyperlipi demia 34935805 Completed 202106/24/2023 Paulette Goldman JANNETH Prieto, PMHNP-BC [address] [place], [address] , [facility] 3 11:09:55 Essential hypertens ion 93548672 Active 2021 Not Available [facility] 4 04:19:09 Complicat ion due to diabetes mellitus 93048934 Active 2021 Not Available [facility] 4 04:19:09 Osteoporo sis 81774758 Active 2021 Not Available [facility] 4 04:19:09 Restless legs 36845620 Active 2021 Not Available [facility] 4 04:19:09 Altered bowel function 44913182 Completed 202206/24/2023 Paulette SouzaJANNETH Lal, PMHNP-BC [address] [place], [address] , [facility] 3 11:09:14 Urinary incontine nce 747068277 Active 2022 Not Available [facility] 4 04:19:09 Osteoarth ritis of multiple joints 505251532 Active 2022 Not Available [facility] 4 04:19:09 Vitamin D deficienc y 04324739 Active 2022 Not Available [facility] 4 04:19:09 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 Procedures Surgical History Date Name Laterality Status Provider Name and Address Organization Details Recorded Time Pacemaker completed Renay Kincaid [facility] 05/12/2022 14:47:46 open heart surgery completed Renay Kincaid [facility] 05/12/2022 14:47:57 total hysterectomy completed Renay Knicaid [facility] 05/12/2022 14:48:52 arterial embolectomy completed Paulette Prieto, TELETYPEWRITER INSTALLER-BC, PMHNP-BC [address] [place] [address], [address] 06/14/2022 10:03:38 Appendectomy completed Allie Deshpande [facility] 12/04/2022 09:38:03 extraction of cataract completed Allie Deshpande [facility] 12/04/2022 09:38:37 replacement of valved cardiac conduit completed Allie Deshpande [facility] 12/04/2022 09:39:16 total abdominal hysterectomy with bilateral salpingo-oophorec joyce completed Allie Deshpande [facility] 12/04/2022 09:40:14 Imaging Results Imaging Date Name Status LastModified by Organiz ation Details LastModified Time 03/04/2023 CT, brain, w/o contrast completed [email or web address] [address] [place] [address], [address], 04/02/2023 08:47:01 2023 MAMMO, screening, digital, bilateral completed [email or web address] [place] [id number] [facility] [address], [place], [address], 05/28/2023 10:00:11 10/10/2023 [facility] [address] [facility] [address], [place], [address], 10/12/2023 17:37:08 Procedure Notes None recorded. Medical Equipment None Reported. Allergies Allergen ID Allergen Name Allergen Category Reaction Reaction Severity Criticality Documentation Date Start Date Code Code System Note Provider Name and Address Organization Details Recorded Time 5022 codeine medicatio n abdominal pain nausea vomiting Not available mild Not available Not available 05/12/2022 2670 RxNorm Renay Kincaid [facility] 2 08:39:37 5952 doxycycli ne Not available vomiting Not available Not available 01/31/2023 3640 RxNorm Facundo Joseph [facility] 3 12:20:22 Medications Name Sig Start Date [...] e 137 mcg (0.1 %) nasal spray [place] 2 sprays twice a day by intranas [...] [degF] 118 mm[Hg] 68 mm[Hg] Sonja Chou [facility] 3 10:06:54 Date Recorded Body height Body mass index (BMI) Body weight Heart rate Respiratory rate Oxygen saturation Oxygen saturation in Arterial blood by Pulse oximetry Body temperature Systolic blood pressure Diastolic blood pressure Provider Name and Address Organization Details Last Updated DateTime 3 165.1 cm 26.8 kg/m2 24493.3 7 g 75 /min 16 /min 99 % 99 % 97.3 [degF] 122 mm[Hg] 78 mm[Hg] Sonja Chou [facility] 3 10:21:51 Date Recorded Body height Heart rate Respiratory rate Oxygen saturation Oxygen saturation in Arterial blood by Pulse oximetry Body temperature Body mass index (BMI) Body weight Systolic blood pressure Diastolic blood pressure Provider Name and Address Organization Details Last Updated DateTime 3 165.1 cm 64 /min 16 /min 96 % 96 % 97.3 [degF] 28.1 kg/m2 11539.6 7 g 124 mm[Hg] 78 mm[Hg] Sonja Chou [facility] 3 09:59:14 Date Recorded Body height Heart rate Respiratory rate Oxygen saturation Oxygen saturation in Arterial blood by Pulse oximetry Body temperature Systolic blood pressure Diastolic blood pressure Provider Name and Address Organization Details Last Updated DateTime 3 165.1 cm 75 /min 16 /min 93 % 93 % 98.3 [degF] 138 mm[Hg] 80 mm[Hg] Tom Roe [facility] 3 11:35:52 Date Recorded Body mass index (BMI) Body weight Provider Name and Address Organization Details Last Updated DateTime 06/25/2023 28.3 kg/m2 41144.42 g Gavino Boyce [facility] 06/25/2023 11:43:05 Date Recorded Body height Heart rate Respiratory rate Oxygen saturation Oxygen saturation in Arterial blood by Pulse oximetry Body temperature Systolic blood pressure Diastolic blood pressure Provider Name and Address Organization Details Last Updated DateTime 3 165.1 cm 66 /min 16 /min 96 % 96 % 97.7 [degF] 118 mm[Hg] 76 mm[Hg] Gavino Boyce [facility] 3 11:19:23 Social History Question Answer Notes LastModified by Organizat ion Details LastModified Time Tobacco Smoking Status Former Smoker Renay Bernabenton [facility] 05/12/2022 14:55:35 What Is Your Level Of Alcohol Consumption? Occasional Less Than 1 Drink Per Day [email or web address] Information not available 07/10/2023 How Many Years Have You Consumed Alcohol? 50 [email or web address] Information not available 05/12/2022 Are You Currently Sexually Active With Anyone Who Has Traveled (within The Last 12 Weeks) To A Zika-affected Area? No [email or web address] Information not available 05/12/2022 Do You Wear A Helmet When Biking? Yes [email or web address] Information not available 05/12/2022 Are You Blind Or Do You Have Difficulty Seeing? No [email or web address] Information not available 05/12/2022 Is Blood Transfusion Acceptable In An Emergency? Yes [email or web address] Information not available 05/15/2022 What Is Your Level Of Caffeine Consumption? Occasional [email or web address] Information not available 05/12/2022 What Type Of Bead Forming Machine Set Up Operator Do You Use? None [email or web address] Information not available 05/12/2022 In The 14 Days Before Symptom Onset, Have You Had Close Contact With A Laboratory-confir med COVID-19 While That Case Was Ill? No [email or web address] Information not available 05/12/2022 In The 14 Days Before Symptom Onset, Have You Had Close Contact With A Person Who Is Under Investigation For COVID-19 While That Person Was Ill? No [email or web address] Information not available 05/12/2022 Have You Been To An Area Known To Be High Risk For COVID-19? No [email or web address] Information not available 05/12/2022 Are You Currently Employed? No [email or web address] Information not available 05/12/2022 Are You Deaf Or Do You Have Serious Difficulty Hearing? No [email or web address] Information not available 05/12/2022 What Type Of Diet Are You Following? [employer] Greens. Information not available 05/12/2022 Have You Processed Blood Or Body Fluids From An Ebola Virus Disease Patient Without Appropriate PPE? No [email or web address] Information not available 05/12/2022 Do You Reside In Or Have You Traveled To An Area Where Ebola Virus Transmission Is Active? No [email or web address] Information not available 05/12/2022 What Is The Highest Grade Or Level Of School You Have Completed Or The Highest Degree You Have Received? [id number] [email or web address] Information not available 05/12/2022 Have There Been Any Changes To Your Family Or Social Situation? Yes [email or web address] Information no t available 05/12/2022 What Is The Fluoride Status Of Your Home? Unknown Information not available 05/12/2022 When Did You Quit Smoking? 16+yearssince lastcigarette [email or web address] Information not available 05/15/2022 Are There Any Guns Present In Your Home? No [email or web address] Information not available 05/12/2022 Which Of Your Hands Is Dominant? Right [email or web address] Information not available 05/12/2022 Have You Recently Or Are You Planning To Travel To An Area With Zika Virus? No [email or web address] Information not available 05/12/2022 Do You Use Insect Repellent Routinely? No [email or web address] Information not available 05/12/2022 Do You Have A Medical Power Of Miscellaneous Machine Operator? Yes [email or web address] Information not available 05/15/2022 What Was The Date Of Your Most Recent Tobacco Screening? 03/05/2023 [email or web address] Information not available 03/05/2023 How Many Children Do You Have? 2 [email or web address] Information not available 05/12/2022 What Is Your Current Pack Years? 30ormorepacky luis jyzvwxeqt20 Information not available 12/07/2022 Have You Ever Been Counseled For Unhealthy Alcohol Use? No [email or web address] Information not available 05/15/2022 Do You Have Any Pets? No [email or web address] Information not available 05/12/2022 What Is Your Relationship Status? [email or web address] Information not available 05/12/2022 Do You Use Your Seat Belt Or Car Seat Routinely? Yes [email or web address] Information not available 05/12/2022 Are You Sexually Active? No [email or web address] Information not available 05/12/2022 Do You Have Smoke And Carbon Monoxide Detectors In Your Home? Yes [email or web address] Information not available 05/12/2022 At What Age Did You Start Smoking Tobacco? 16 Information not available 05/12/2022 Are You Passively Exposed To Smoke? No [email or web address] Information no t available 05/12/2022 Do You Participate In Social Media? Yes [email or web address] Information not available 05/15/2022 What Types Of Sporting Activities Do You Participate In? Group Therapy cuskwvedl52 Information not available 05/12/2022 Do You Feel Stressed (tense, Restless, Nervous, Or Anxious, Or Unable To Sleep At Night)? [id number] eaqljvrlq62 Information not available 05/12/2022 Do You Use Any Illicit Or Recreational Drugs? No Information not available 05/12/2022 Do You Use Sunscreen Routinely? No [email or web address] Information not available 05/12/2022 How Many Years Have You Smoked Tobacco? 10 [email or web address] Information not available 05/12/2022 Have You Recently Traveled Abroad? No [email or web address] Information not available 05/12/2022 Are You Currently In School? No lreuovkvx27 Information not available 05/12/2022 Do You Have Any Dietary Restrictions? No lwinoaviv50 Information not available 05/12/2022 Do You Or Have You Ever Used Any Other Forms Of Tobacco Or Nicotine? No [email or web address] Information not available 05/12/2022 Sex: Female Functional Status Question Answer Note LastModified by Organizat ion Details LastModified Time Do you have difficulty walking or climbing stairs? Yes [email or web address] Information not available 05/12/2022 Do you have transportation difficulties? Yes [email or web address] Information not available 05/12/2022 Are you able to walk? YESASSIST Information not available 05/12/2022 Do you have difficulty doing errands alone? Yes [email or web address] Information not available 05/12/2022 Are you able to care for yourself? Yes [email or web address] Information not available 05/12/2022 Do you have difficulty dressing or bathing? Yes [email or web address] Information not available 05/12/2022 What is your exercise level? None [email or web address] Information not available 05/12/2022 Mental Status Question Answer Note LastModified by Organization D etails LastModified Time Do you have difficulty concentrating, remembering or making decisions? Yes [email or web address] Information no t available 05/12/2022 Family History Relationship Description Onset Age of this Age Resolved Age Notes LastModified by Organization Details LastModified Time Father Intracranial aneurysm [email or web address] Not available 04/26 14:51:37 Daughter Myocardial infarction 48 [email or web address] Not available 14:57:47 Daughter Hypertensive disorder [email or web address] Not available 04/26 14:58:09 Daughter Anxiety [email or web address] Not avail able 05/12/2022 14:58:19 Daughter Depressive disorder [email or web address] Not available 04/26 14:58:27 Daughter Coronary atherosclero sis [email or web address] Not available 2021 19:25:18 Brother Heart disease [email or web address] Not available 2021 19:25:01 Mother Heart disease Not available 2021 19:25:34 Mother Hypertensive disorder [email or web address] Not available 2021 19:25:43 Mother Hyperlipidem ia Not available 2022 09:41:15 Mother Unexplained visual loss [email or web address] Not available 07/2023 09:41:45 Mother History of macular degeneration [email or web address] Not available 07/2023 09:42:55 Mother Coronary arterioscler osis Not available 2022 09:43:24 Mother Cataract Not available 07/10/2023 09:27:58 Maternal Grandmother Diabetes mellitus [email or web address] Not available 2022 09:42:04 Unspecified Relation Disorder of thyroid gland Not available 2022 09:43:51 Medical History Condition Response Hematological Diseases / Disorders Y Urinary Incontinence Y Depression Y Pneumonia Y UTI Y Rheumatic Diseases / Disorders Y Atherosclerosis of andreafski co ronary artery of andreafski heart without angina pectoris Y Obstructive Sleep Apnea Y Gynecological Diseases / Disorders Y Chronic Obstructive Pulmonary Disease (C OPD) Y AICD / Pacemaker Y Musculoskeletal Diseases / Disorders Y Cancer Y Cellulitis Y Cardiac Diseases / Disorders Y Vitamin deficiency Y Eye Disease / Disorders Y Allergies/Hayfever Y Sepsis Y Cerebrovascular Accident (CVA) Y Hospitalizations Y Vascular Diseases / Disorders Y Pulmonary Diseases / Disorders Y Anemia Y Diabetes Y Cataracts Y Gastrointestinal Diseases / Disorders Y Myocardial Infarction Y Infectious Disease/Disorders/Virus Y Congestive Heart Failure (CHF) Y Insomnia Y Hyperlipidemia Y Skin Diseases / Disorders Y Dementia Y Asthma Y Foot Diseases / Disorders Neuropathy Y Neurological Diseases / Disorders Y Hypertension Y Osteoporosis Y Atrial Fibrillation / AFIB Y Gynecological HistoryNo gynecological history recorded. Obstetrics History GPAL:G 0 P 0 0 0 0 Immunizations Vaccine Type Date Status Note Provider Nam e and Address Organization Details Recorded Time COVID-19, mRNA, LNP-S, PF, 30 mcg/0.3 mL dose 1 completed Not Available [facility] 12/04/2023 04:19:09 COVID-19, mRNA, LNP-S, PF, 30 mcg/0.3 mL dose 1 completed Not Available [facility] 12/04/2023 04:19:09 pneumococcal polysaccharide PPV23 8 completed Not Available [facility] 12/04/2023 04:19:09 pneumococcal polysaccharide PPV23 1 completed Not Available [facility] 12/04/2023 04:19:09 pneumococcal polysaccharide PPV23 7 completed Not Available [facility] 12/04/2023 04:19:09 pneumococcal polysaccharide PPV23 6 completed Not Available [facility] 12/04/2023 04:19:09 pneumococcal polysaccharide PPV23 8 completed Not Available [facility] 12/04/2023 04:19:09 Pneumococcal conjugate PCV 13 5 completed Not Available [facility] 12/04/2023 04:19:10 Td(adult) unspecified formulation 3 completed Not Available [facility] 12/04/2023 04:19:10 Td(adult) unspecified formulation 9 completed Not Available [facility] 12/04/2023 04:19:10 Td(adult) unspecified formulation 9 completed Not Available [facility] 12/04/2023 04:19:10 Tdap 1 completed Not Available [facility] 12/04/2023 04:19:10 tetanus toxoid, unspecified formulation 3 completed Not Available [facility] 12/04/2023 04:19:10 Influenza, split virus, quadrivalent, preservative 0 completed Not Available [facility] 12/04/2023 04:19:09 COVID-19, mRNA, LNP-S, PF, 30 mcg/0.3 mL dose 1 completed Not Available [facility] 12/04/2023 04:19:09 COVID-19, mRNA, LNP-S, PF, 30 mcg/0.3 mL dose 2 completed Not Available [facility] 12/04/2023 04:19:09 Tdap 2 completed Not Available [facility] 12/04/2023 04:19:10 influenza, unspecified formulation 3 completed Not Available [facility] 12/04/2023 04:19:10 influenza, unspecified formulation 4 completed Not Available [facility] 12/04/2023 04:19:10 influenza, unspecified formulation 5 completed Not Available [facility] 12/04/2023 04:19:10 influenza, unspecified formulation 8 completed Not Available [facility] 12/04/2023 04:19:10 influenza, unspecified formulation 9 completed Not Available [facility] 12/04/2023 04:19:10 influenza, unspecified formulation 1 completed Not Available [facility] 12/04/2023 04:19:10 Past Encounters Encounter ID Performer Location Encounter Start Date Encounter Closed Date Diagnosis/Indication Diagnosis SNOMED-CT Code Diagnosis ICD10 Code Diagnosis Note [id number] MARGARET LindaP-BC, PMHNP-BC [facility] [address] [place] [address] 05/15/2022 06:37:58 05/16/2022 08:31:18 Adult health examination 593690098 Z00.00 Advance care planning 71 0289705 Z71.89 Neck pain 00858139 M54.2 X-ray ordered s/p fall and having continued pain. Pain of ri t shoulder joint [id number] 1111933 M25.511 X-ray ordered s/p fall and having continued pain. Chronic po st-COVID-19 syndrome 1171610159 Z86.16 therapy ordered as Vandana has long haulers. Slowly needs to rebuild strength and endurance. Muscle atrophy 49845199 M62.50 therapy ordered as Vandana has long haulers. Slowly needs to rebuild strength and endurance. Moderate c hronic obstructive pulmonary disease 694305150 J44.9 nebulizer ordered to help with breathing. Orders sent to [facility]. Will be mailed to patient. Multiple complications due to type 2 diabetes mellitus 322797408 E11.8 taking medication s. labs to eval levels. Anemia 849418487 D64.9 labs to eval levels Fatigue 23502687 R53.83 labs to eval levels [id number] Paulette Prieto TELETYPEWRITER INSTALLER-BC, PMHNP-BC [facility] [address] [place] [address] 06/12/2022 06:45:17 06/14/2022 12:47:36 Chronic mxck-SXFFR-51 syndrome 3979833314 Z86.16 therapy ordered as Vandaan has long haulers. Slowly needs to rebuild strength and endurance which has been complicate d by recent hospitaliz ation. Hematoma o f rectus sheath 405448101 S30.1XXD Rechecking blood counts Chronic ob structive pulmonary disease 97320369 J44.9 Duoneb for COPD. It was not on her discharge list but want this medication continued. Medication was sent through [facility] so it would not cost her anything and run through part B vs D. Atrial fibrillation 4943 6004 I48.91 managed by cardiology . Warfarin levels have changed and no longer on Lovenox. 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 Farxiga instead as it provides kidney protection in addtion to DM and heart. Moderate c hronic obstructive pulmonary disease 642485126 J44.9 Changing duonebs to PRN [id number] [address] [facility] [address] [place] [address] 08/07/2022 09:34:32 08/07/2022 15:59:34 Allergic rhinitis 10525321 J30.9 Significan t post nasal drip. Given Flonase and Azelastine to help dry up significan t nasal mucous. Allergic conjunctivitis 294778377 H10.13 Pataday eye drops for eye allergies. Will help with itchy watery eyes. Open wound of nasal cavity 025635761 S01.20XA Counseled on not picking at nose. ABX ointment to area. Altered karen wel function 24002298 R19.4 stool culture to r/o Hemorrhoids 11609628 K64 .9 anusol to help with hemorrhoid s. If no [place] [id number] LILLIANA Linda-BC, PMHNP-BC [facility] [address] [place] [address] 08/28/2022 06:55:06 08/28/2022 14:01:33 Allergic rhinitis 74663399 J30.9 Flonase and Azelastine to help dry up significan t nasal mucous. Allergic conjunctivitis 745053828 H10.13 Pataday eye drops for eye allergies. Open wound of nasal cavity 890103045 S01.20XD Counseled on not picking at nose. ABX ointment to area which is helping. Hemorrhoids 83688829 K64 .9 has been helping. Hyperlipidemia 67530497 E78.5 taking medication s. labs to eval levels. Essential hypertension 01280014 I10 taking medication s. labs to eval levels. Complicati on due to diabetes mellitus 43637997 E11.8 taking medication s. labs to eval levels. Osteoporosis 32748931 M8 1.0 Return back to pill form until Prolia is approved at an amount that is doable. [id number] JANNETH Linda, [facility] [address] [place] [address] 09/25/2022 06:54:25 09/26/2022 20:06:50 Complication due to diabetes mellitus 51008737 E11.8 taking medication s. labs to eval levels. Essential hypertension 70292528 I10 taking medication s. labs to eval levels. Hyperlipidemia 38017914 E78.5 taking medication s. labs to eval levels. 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 Requires diabetic shoes with inserts. Has poor circulatio n with DX of PAD/PVD.I am managing and treating this patient s diabetes under a comprehens lennox plan of care. This patient requires diabetic shoes and heat-molde d or custom-mol ded inserts to help prevent ulcers and further complicati ons. [id number] JANNETH Linda, [facility] [address] [place] [address] 10/23/2022 06:54:10 10/24/2022 21:23:00 Complication due to diabetes mellitus 55237141 E11.8 A1C is really well at 6.1. Continue Ozempic. Allergic rhinitis 390466 04 J30.9 Fluticason e and Azelastine together. Counseled on how to do and administer to provide therapeuti c benefit. Restless legs 99064728 G 25.81 Increasing Ropinirole to 0.5 mg q HS. Was having some benefits on lower dose but not providing a significan t benefit. [id number] LILLIANA Linda-TISHA, [facility] [address] [facility] [place] [address] 11/13/2022 06:54:53 11/14/2022 08:46:40 Allergic rhinitis 95940704 J30.9 Fluticason e and Azelastine together. Has been having some improvemen ts. Will see how it goes after ARBORIST REPRESENTATIVE evaluates. Restless legs 41054673 G 25.81 Noting improvemen ts but still having increasing episodes. Increased Ropinirole to 1 mg q hS. Choking 954706969 R09.89 Will have ARBORIST REPRESENTATIVE eval and tx.ARBORIST REPRESENTATIVE to eval. If s/sx do not improve will look at possible ENT and/or GI for evaluation . [id number] [facility] [address] [place] [address] 11/30/2022 17:57:51 12/01/2022 15:44:22 Cough 12205033 R05.9 Expiratory wheezing 9763 007 R06.2 Dyspnea at rest 17028185 7 R06.00 [id number] LILLIANA Linda-TISHA, [facility] [address] [place] [address] 12/12/2022 06:58:16 12/12/2022 21:22:17 Hypertensive crisis 731609331 I16.9 [id number] LILLIANA Linda-TISHA, [facility]- [facility] [address] [place] [address] 12/20/2022 14:00:18 12/20/2022 19:21:00 Peripheral neuropathy due to type 2 diabetes mellitus 5869843075 107 E11.42 Reviewed tobacco wrapping machine tender 's note. Requires diabetic shoes with inserts. Has peripheral neuropathy with callus formation d/t Type II DM. I am managing and treating this patient's diabetes under a comprehens lennox plan of care. The patient requires diabetic shoes and either heat-molde d, custom-mol ded, or prefabrica tomi inserts to help prevent ulcers and worsening conditions along with preventing further complicati ons. Urinary incontinence 165 640254 N39.42 Altered karen wel function 10601018 R19.4 [id number] Paulette Goldman Conner [facility], [facility] [address] [place] [address] 01/10/2023 16:44:20 01/11/2023 08:30:55 Urinary incontinence 083150374 N39.42 Altered karen wel function 16519055 R19.4 Applying calmosepti ne to help with protectant . Counseled about bowel training every 2 hours like bladder to see if can decrease accidents. Dysphagia 84752660 R13.1 0 Cough 83010479 R05.9 [id number] Paulette Prieto [facility], [facility] [address] [place] [address] 03/05/2023 05:43:13 03/05/2023 18:49:24 Altered bowel function 09905492 R19.4 given the multiple diarrhea BM. Stopping Miralax and Senna. Donepezil can cause some GI upset resulting in diarrhea. Discussed such. Will get off the Miralax and senna. See how she does. Superficia l laceration of head 859495405 S01.91XD No infection noted. Cyst of skin 011697060 L 72.9 Noted on RLE, Lucien evaluated and noted it to be a cyst Osteoarthr itis of multiple joints 723454189 M15.9 pain from OA and fall. APAP to help with pain. Recurrent falls 61807744 2 R29.6 Cough 44613846 R05.9 [id number] Paulette Prieto [facility]ITER [facility], [facility] [address] [place] [address] 04/02/2023 06:42:51 04/02/2023 13:52:57 Complication due to diabetes mellitus 15483668 E11.8 taking medication s. labs to eval levels. Essential hypertension 17043043 I10 taking medication s. labs to eval levels. Hyperlipidemia 08533983 E78.5 taking medication s. labs to eval levels. Vitamin D deficiency 347 21669 E55.9 Screening for osteoporosis 550728861 Z13.820 [id number] Paulette Prieto [facility], PMHNP-BC [facility] [address] [place] [address] 04/30/2023 06:46:06 04/30/2023 20:11:07 Vitamin D deficiency 26227830 E55.9 Candidal intertrigo 2661 94584 B37.2 [id number] Paulette Prieto [facility], [facility]- [facility] [address] [address] 05/28/2023 08:40:14 05/28/2023 21:28:16 Long-term current use of bisphosphonates 4445185545 00433 Z79.83 Restless legs 51338337 G 25.81 Doing much better with the 1 mg of Ropinirole . Advance care planning 71 2497454 Z71.89 [id number] Paulette Prieto [facility], [facility] [address] [place] [address] 06/25/2023 07:50:25 06/25/2023 18:51:04 Candidiasis of skin 92277745 B37.2 Continued PRN as this provides a benefit often using regularly given the continued rash issues Complicati on due to diabetes mellitus 99961503 E11.8 Recurrent major depression in full remission 57147639 F33.42 Continue medication as this is providing controlled of symptoms. Denies SI/HI. [id number] Paulette Prieto [facility], [facility] [address] [place] [address] 07/17/2023 08:37:29 07/17/2023 18:16:43 Lesion of nose 933190616 J34.89 Candidal intertrigo 2661 33491 B37.2 Health Concerns Section Related Observation LastModified by Organization Detai ls LastModified Time None Recorded Concern Status LastModified by Organization Details LastModified Time None Recorded Advance Directives Directive None Recorded Payers Encounter Date Sequence Insurance Name Policy Number Policy Roth Covered Member ID Roth Member ID Guarantor Name 04/02/2023 1 [place] Kay Winn [id number] Corinne Romanik 04/02/2023 2 [employer] OPTIONS (MEDICARE SUPPLEMENT) Kay Winn [id number] Corinne Romanik 04/30/2023 1 [place] Kay Borrerobolich [id number] Corinne Romanik 04/30/2023 2 [employer] OPTIONS (MEDICARE SUPPLEMENT) Kay Borrerobolich [id number] Corinne Romanik 05/28/2023 1 [place] Kay Borrerobolich [id number] Corinne Romanik 05/28/2023 2 [employer] OPTIONS (MEDICARE SUPPLEMENT) Kay Winn [id number] Corinne Romanik 06/25/2023 1 [place] Kay Borrerobolich [id number] Corinne Romanik 06/25/2023 2 [employer] OPTIONS (MEDICARE SUPPLEMENT) Kay Winn [id number] Corinne Romanik 07/17/2023 1 [place] Kay Cruzlich [id number] Corinne Romanik 07/17/2023 2 [employer] OPTIONS (MEDICARE SUPPLEMENT) Kay Borrerobolich [id number] Corinne Romanik Notes Date Note Type Note Provider Name and Address Organization Details Recorded Time 04/02/2023 text/html HLD - Compliant with statin. No side effects.HTN - Compliant with medications. Does not report any MCKENNA, blurry vision, dizziness, CP, SOB, or palpitations.DM - taking medications and A1C has been much better with Ozempic on board. Paulette Prieto, TELETYPEWRITER INSTALLER-BC, PMHNP-BC [address] [place], [address], [place] [facility] 04/02/2023 12:01:26 04/30/2023 text/html Breast Rash - Ju dy reports having a rash under R breast that she has been putting medication on but has not helped. It continues to itch.Vitamin D - noted to low on routine labs. MARGARET LindaP-BC, PMHNP-BC [address] [place], [address], [facility] 04/30/2023 12:46:22 05/28/2023 text/html osteoporosis - taking medications and concerned about where her bones are.reports having some palpable lumps under what she describes as a notch under neck.RLS - doing very well with the medication. MARGARET LindaP-BC, PMHNP-BC [address] [facility], [place], [place], [address] [place] [address], [facility] 05/28/2023 17:30:31 06/25/2023 text/html Evan - has intermittent episodes that pop up under breasts and pannus. Powder has been helpingMDD - taking Lexapro and doing very well. Has continued to feel upbeat daily. Denies SI/HI. JANNETH Linda, PMHNP-BC [address] [place], [address], [facility] 06/25/2023 15:51:44 07/17/2023 text/html Small open sore in nose - bothersome and having soreness. has been difficult not to pick at it. Evan - continues to be problematic for under R breast MARGARET LindaP-BC, PMHNP-BC [address] [place], [address], [facility] 07/17/2023 14:13:21 OBGyn Episode No OBEpisode recorded.
--- OUTSIDE RECORDS SUMMARY | 2025-01-21 00:08 | XMS_ITS | Encounter Summary ---
Author Organization [facility] Address [address] [facility] [place] [address] Care Team Providers Care Insurance Verification Representative Name Role Phone Juana Mesa MD Primary Care Provider Juana Mesa MD Primary Care Provider Juana Mesa MD Primary Care Provider Juana Mesa MD Primary Care Provider Juana Mesa MD Unavailable [phone] Juana Mesa MD Unavailable [phone] Juana Mesa MD Unavailable [phone] Juana Mesa MD Unavailable [phone] Juana Mesa MD Unavailable Juana Mesa MD Unavailable Ra Jara MD Unavailable Dada Lou MD Unavailable Unavailable Paco Holden MD Unavailable [phone] Paramjit Escobar MD Unavailable [phone] Encounter Details Date Type Department Care Team (Late st Contact Info) Description 07/22/2019 Lab Requisition [facility] D[facility] [address] [facility] [place] [address] Debbie Hall MD [address] [facility] [address] [place] [address] Social History Tobacco Use Types Packs/Day Years [...] 7.0 Result Component 6.4( 7 6:22 AM SUPERVISOR WOOD ROOM) No Kannan Lang documented as of this encounter Procedures Procedure Name Priority Date/Time Associated Diagnosis Comments DERMATOPATHOLOGY Routine 07/21/2019 12:0 0 AM CDT documented in this encounter Results * DERMATOPATHOLOGY (07/21/2019 12:00 AM CDT) Case Report Dermatopathology Report Case: [id number] Authorizing Provider: Debbie Hall MD Collected: 07/21/2019 12:00 AM Ordering Location: [facility] DermPath Lab Received: 07/22/2019 11:25 AM Pathologist: Anamika Whatley MD Specimen: Skin, mid chin 12:25 PM CDT DERMATOPATHOLOGY LABORATORY Final Diagnosis Specimen A. 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 12:25 PM CDT DERMATOPATHOLOGY LABORATORY Gross Description Specimen A: Received is one formalin filled container labeled with the patient's name and designated mid chin. The specimen consists of a shave measuring [id number]. Jar 0. 12:25 PM CDT DERMATOPATHOLOGY LABORATORY [...] characteristic determined by the Dermatopathology Laboratory at [facility], directed by Dr. Ines Maldonado. These tests need not be, and therefore are not, approved by the [place] Food and Drug Administration. The tests are used for clinical purposes. Billing Codes Specimen Charges Stain Charges 91063 1 9 12:25 PM CDT DERMATOPATHOLOGY LABORATORY Embedded Images 9 12:25 PM CDT DERMATOPATHOLOGY LABORATORY Pathology/Cytolog y TISSUE SPECIMEN FROM SKIN / Unknown 07/21/2019 07/22/2019 11:25 AM CDT Debbie Hall MD LAB - PATHOLOGY/CYT OLOGY ORDERABLES DERMATOPATHOLOGY LABORATORY [facility] - Department of Dermatology [address] [place] [address] [phone] documented in this encounter Visit Diagnoses Not on filedocumented in this encounter Care Teams Insurance Verification Representative Relationship Specialty Start Date End Date Juana Mesa MD [address] [facility] [address]ett [address] [place] [phone] PCP - General 07/21/19 12/21/19 Juana Mesa MD [address] [facility] [address]ruett [address] [place] [phone] PCP - General 12/22/19 06/30/20 Juana Mesa MD [address] [facility] [address] [place] [phone] PCP - General 07/01/20 04/10/21 Juana Mesa MD [address] [facility] [address]ett [address] [place] [phone] PCP - General 04/11/21 Juana Mesa MD [address] [facility] [address] Flynn [address] [place] [phone] 04/11/21 Juana Mesa MD [facility] [address]ruett [address] [place] [phone] 07/01/20 Juana Mesa MD [address] [place] [address] Dr [address] [place] [phone] 12/22/19 Juana Mesa MD [facility] [address]ett [address] [place] [phone] 07/21/19 Juana Mesa MD [address] [place] [address] Dr [address]ett [address] [place] [phone] 07/12/18 Juana Mesa MD [address] [place] [address] Dr [address]ett [address] [place] [phone] Family Medicine 05/03/18 Ra Jara MD [address] [place] [phone] Endocrinology 04/21/14 Dada Lou MD [address] [place] [address] [place] [phone] Internal Medicine 11/09/15 Paco Holden MD [address] [place] [phone] Neurology 05/11/16 Paramjit Escobar MD [address] [place] [address] [place] [address] Internal Medicine 11/23/16 documented as of this encounter
--- OUTSIDE RECORDS SUMMARY | 2025-01-21 00:08 | XMS_ITS | Encounter Summary ---
Author Organization [facility] Care Team Providers Care Boat And Plant Utility Supervisor Name Role Phone Juana Mesa MD Primary Care Provider [phone] Sharlene Meléndez LPN Unavailable Lissette Riley Unavailable No, Physician Primary Care Provider [phone] Paulette Prieto LPN OR MEDICAL ASSISTANT Primary Care Provider [phone] Meredith Aburto LPN OR MEDICAL ASSISTANT Primary Care Provi arlette No, Physician Primary Care Provider [phone] Encounter Details Date Type Department Care Team (Latest Contact Info) Description 08/14/2018 Orders Only [facility] CLINCON[facility] ProviderDwayne MD [address] [place] [address] Social History Tobacco Use Types Packs/Day Years Used Date Smoking Tobacco: Former Smokeless Tobacco: Never Alcohol Use Standard Drinks/Week Comments Yes 0 (1 standard drink = 0.6 oz pur e alcohol) Comments Unknown Sex and Gender Information Value Date Recorded Sex Assigned at Not on file Legal Sex Female 9:08 AM FRENCH COMBER Gender Identity Female 06/25/2019 7:13 AM CDT [...] diarrhea 04/18/2017 04/17/2017 12/30/2021 2 :39 PM FRENCH COMBER COVID: Suspected 07/05/2020 07/05/2020 07/19/2020 3:05 AM CDT COVID: Suspected 07/01/2021 07/01/2021 07/01/2021 2:38 PM CDT COVID: Suspected 07/01/2021 07/01/2021 07/01/2021 9:10 PM CDT COVID19 07/01/2021 07/01/2021 07/15/2021 3:05 AM CDT COVID: Recovered Comment:Added based on recent COVID infection. 07/15/2021 07/15/2021 11/12/2021 3:[address] COVID: Suspected 11/28/2021 11/28/2021 11/28/2021 7:00 PM FRENCH COMBER COVID19 11/28/2021 11/28/2021 12/12/2021 3:05 AM FRENCH COMBER COVID: Recovered Comment:Added based on recent COVID infection. 12/12/2021 12/12/2021 04/11/2022 3:05 AM C DT COVID: Suspected 07/05/2022 07/05/2022 07/05/2022 10:39 PM CDT MRSA 07/06/2022 07/06/2022 01/02/2023 3:05 AM FRENCH COMBER COVID19 12/02/2022 12/02/2022 12/13/2022 3:05 AM FRENCH COMBER COVID: Recovered Comment:Added based on recent COVID infection. 12/13/2022 12/15/2022 03/13/2023 3:05 AM C DT Exposure, COVID-19 Comment:No direct exposure. Pt in COVID recovery window. No concern for new infection. Ana Aguilera 01/15/2023 Added automatically based on COVID19 lab answers indicating exposure risk 01/14/2023 01/14/2023 01/15/2023 10:17 AM FRENCH COMBER COVID: Suspected 01/14/2023 01/14/2023 01/14/2023 6:42 PM FRENCH COMBER Human metapneumovirus, conta ct + droplet 01/14/2023 01/14/2023 01/21/2023 3:[address] COVID: Suspected 01/30/2023 01/30/2023 01/30/2023 10:06 PM FRENCH COMBER documented as of this encounter Care Teams Boat And Plant Utility Supervisor Relationship Specialty Start Date End Date Juana Mesa MD [address] [facility] [address] MAO [address] [place] [address] PCP - General 11/26/17 10/26/18 No, Physician PCP - General 06/20/22 06/21/22 Paulette Prieto NP [address] [place] [address] PCP - General Nurse Practitioner 06/22/22 08/16/23 Meredith Aburto NP [address] [place] [address] PCP - General Family Medicine 08/17/23 09/11/24 No, Physician PCP - General 09/12/24 Sharlene Meléndez LPN [address] [facility] [address] [place] [address] Nba Player 11/05/19 11/05/19 Lissette Riley [address] [place] [address] [address] [place] [address] ACO Care Bakery Worker Conveyor Line 01/15/20 01/15/20 documented as of this encounter
--- OUTSIDE RECORDS SUMMARY | 2025-01-21 00:08 | XMS_ITS | Encounter Summary ---
Author Organization [facility] Address [address] [place] [address] Care Team Providers Care Egg Smeller Name Role Phone Meredith Aburto CONTACT LENS CURVE GRINDER Primary Care Provi arlette No, Physician Primary Care Provider Encounter Details Date Type Department Care Team (Late st Contact Info) Description 04/22/2024 Orders Only [facility] Information Management [address] [place] [address] Scanning, Provider Social History Tobacco [...] often do you attend chur ch or baptism services? More than 4 times per year 02/02/2023 Do you belong to any clubs o r organizations such as methodist groups, unions, fraternal or athletic groups, or [...] on file Legal Sex Female 9:08 AM NATURAL RESOURCE OFFICER Gender Identity Female 06/25/2019 7:13 AM CDT [...] on filedocumented in this encounter Care Teams Egg Smeller Relationship Specialty Start Date End Date Meredith Aburto NP PCP - General Family Medicine 08/17/23 09/11/24 No, Physician PCP - General 09/12/24 documented as of this encounter
--- OUTSIDE RECORDS SUMMARY | 2025-01-21 00:08 | XMS_ITS ---
Author Organization [facility] Address [address] [place], [place] [address] Care Team Providers Care Thiokol Operator Name Role Phone LINDA PACHECO Unavailable [phone] Stone, Crystal Unavailable Unavailable REASON FOR VISIT *General care Encounters Encounter Location Date Provider Diagnosis [facility] [address] [place], [place] [id number] 06/09/2024 LINDA PACHECO Plan Of Treatment No Information Progress Notes * MAI MCCULLOUGH KDOB:[birth year] (79 yo F)Acc No.[id number]:06/09/2024 Patient: Shubham RODRIGUEZ MAI Pinto Provider: Gabino Pacheco DPM :1945 A ge:79 Y S ex:Female Date:06/09/2024 Address:[address] [place], [place] [id number] Subjective: * Chief Complaints: * 1 . *General care. * Medical History: Objective: * Vitals: Assessment: Plan: * Treatment: * Billing Information: * Visit Code: * Procedure Codes: * Electronic signature of LINDA PACHECO DPM on 01/21/2025 at 12:08 AM NUCLEAR WEAPONS CUSTODIAN Sign off status: Pending * Provider: Gabino Pacheco DPM Date: 0 06/09/2024 Generated for Printi ng/Faxing/eTransmitting on: 01/21/2025 12:08 AM NUCLEAR WEAPONS CUSTODIAN
--- OUTSIDE RECORDS SUMMARY | 2025-01-21 00:08 | XMS_ITS | Encounter Summary ---
Author Organization [facility] Facility Care Team Providers Care Nougat Candy Maker Helper Name Role Phone Juana Mesa MD Primary Care Provider [phone] Sharlene Meléndez COMPRESSOR STATION OPERATOR Unavailable [phone] Sharlene Meléndez COMPRESSOR STATION OPERATOR Unavailable [phone] Lissette Riley Unavailable No, Physician Primary Care Provider [phone] Paulette Prieto MANAGER FORMS Primary Care Provider [phone] Meredith Aburto MANAGER FORMS Primary Care Provi arlette No, Physician Primary Care Provider [phone] Encounter Details Date Type Department Care Team (Latest Contact Info) Description 06/12/2018 Orders Only [facility] CLINCONV ProviderDwayne MD [address] [place] [address] Social History Tobacco Use Types Packs/Day Years Used Date Smoking Tobacco: Former Smokeless Tobacco: Never Alcohol Use Standard Drinks/Week Comments Yes 0 (1 standard drink = 0.6 oz pur e alcohol) Comments Unknown Sex and Gender Information Value Date Recorded Sex Assigned at Not on file Legal Sex Female 9:08 AM MEDIA MARKETING COORDINATOR Gender Identity Female 06/25/2019 7:13 AM CDT [...] diarrhea 04/18/2017 04/17/2017 12/30/2021 2 :39 PM MEDIA MARKETING COORDINATOR COVID: Suspected 07/05/2020 07/05/2020 07/19/2020 3:05 AM CDT COVID: Suspected 07/01/2021 07/01/2021 07/01/2021 2:38 PM CDT COVID: Suspected 07/01/2021 07/01/2021 07/01/2021 9:10 PM CDT COVID19 07/01/2021 07/01/2021 07/15/2021 3:05 AM CDT COVID: Recovered Comment:Added based on recent COVID infection. 07/15/2021 07/15/2021 11/12/2021 3:[address] COVID: Suspected 11/28/2021 11/28/2021 11/28/2021 7:00 PM MEDIA MARKETING COORDINATOR COVID19 11/28/2021 11/28/2021 12/12/2021 3:05 AM MEDIA MARKETING COORDINATOR COVID: Recovered Comment:Added based on recent COVID infection. 12/12/2021 12/12/2021 04/11/2022 3:05 AM C DT COVID: Suspected 07/05/2022 07/05/2022 07/05/2022 10:39 PM CDT MRSA 07/06/2022 07/06/2022 01/02/2023 3:05 AM MEDIA MARKETING COORDINATOR COVID19 12/02/2022 12/02/2022 12/13/2022 3:05 AM MEDIA MARKETING COORDINATOR COVID: Recovered Comment:Added based on recent COVID infection. 12/13/2022 12/15/2022 03/13/2023 3:05 AM C DT Exposure, COVID-19 Comment:No direct exposure. Pt in COVID recovery window. No concern for new infection. Ana Aguilera 01/15/2023 Added automatically based on COVID19 lab answers indicating exposure risk 01/14/2023 01/14/2023 01/15/2023 10:17 AM MEDIA MARKETING COORDINATOR COVID: Suspected 01/14/2023 01/14/2023 01/14/2023 6:42 PM MEDIA MARKETING COORDINATOR Human metapneumovirus, conta ct + droplet 01/14/2023 01/14/2023 01/21/2023 3:[address] COVID: Suspected 01/30/2023 01/30/2023 01/30/2023 10:06 PM MEDIA MARKETING COORDINATOR documented as of this encounter Care Teams Nougat Candy Maker Helper Relationship Specialty Start Date End Date Juana Mesa MD [address] [facility] [address] PR[address] [place] [address] PCP - General 11/26/17 10/26/18 No, Physician PCP - General 06/20/22 06/21/22 Paulette Prieto NP [address] [place] [address] PCP - General Nurse Practitioner 06/22/22 08/16/23 Meredith Aburto NP [address] [place] [address] PCP - General Family Medicine 08/17/23 09/11/24 No, Physician PCP - General 09/12/24 Sharlene Meléndez LPN [address] [place] [address] Dr [address] [place] [address] Gyro Mechanic 07/02/18 07/02/18 Sharlene Meléndez LPN [address] [facility] [address] [place] [address] Gyro Mechanic 11/05/19 11/05/19 Lissette Riley [address] [place] [address] ACO Care Flight Test Supervisor 01/15/20 01/15/20 documented as of this encounter
--- OUTSIDE RECORDS SUMMARY | 2025-01-21 00:09 | XMS_ITS | Patient Health Record ---
Author Organization [facility] Address [address] [address] [place] [address] Care Team Providers Care Component Design Engineer Name Role Phone Paulette Prieto Primary Care Provider Dariel Walsh Unavailable [phone] Allergies Allergen (clinical drug ingredient) Drug/Non Drug [...] Active Carvedilol Active Spironolactone Activ e Ipratropium [place] Active GaviLAX Active Azelastine HCl Activ e [...] Problem Status W/U Status Risk Notes Problem [id number] Type 2 diabetes mellitus with diabetic polyneuropathy, unspecified whether terminal manager insulin use (E11.42) Active confirmed Plan Of Treatment No Information Insurance Providers Payer Name Payer Address Payer Phone Subscriber Number Group Number Insured Name Patient Relationship to Insured Coverage Start Date Coverage End Date Medicare [address] [place] [id number] Kay Wyatt ch Self - patient is the insured [facility] [address] [place] [id number] Plan F Kay Wyatt ch Self - patient is the insured Medical (General) History Medical History History ICD Code Afib Asthma Bleeding disorder Blood clot CAD Diabetes Heart Attake CHF High cholestrol Kidney disease COPD Neuropathy Pacemaker PAD Pneumonia Stroke Wounds Surgical History Surgery Date(Month/Year) Artificial Heart Valve 2005
--- OUTSIDE RECORDS SUMMARY | 2025-01-21 00:09 | XMS_ITS | Clinical Summary ---
Author Organization [facility] Address [address] [place] [address] Care Team Providers Care Slp Teacher Name Role Phone Juana Mesa MD Primary Care Provider [phone] Juana Mesa MD Unavailable Juana Mesa MD Unavailable Juana Mesa MD Unavailable Juana Mesa MD Unavailable Juana Mesa MD Unavailable Juana Mesa MD Unavailable Ra Jara MD Unavailable Dada Lou MD Unavailable Unavailable Paco Holden MD Unavailable [phone] Paramjit Escobar MD Unavailable [phone] Source Comments [facility],non-owned Affiliates and Associated Physician Practices is amultiple site organization consisting of ambulatory clinics and hospital sitesin [place], [place], [place] and [place]. This disclosure is being madepursuant to the Care Everywhere program and may not contain all information available regarding this patient. Last updated 18.[facility] Allergies Active Allergy Reactions Criticality Noted [...] Overview (09/20/2020): Last Assessment & Plan: D/w patient care technician and hospitalist and sent for direct admission to the hospital Aortic stenosis due to bicuspid aortic valve 01/2019 Vitamin D deficiency 10/31/2018 Overview (09/20/2020): Last Assessment & Plan: Stable Cont vitamin d supplement Anticoagulation monitoring, INR range 2.5-3.5 History of mitral valve replacement with mechani cindy valve 03/11/2018 Assessment & Plan (12/30/2020 12:41 PM SENIOR SQL SERVER DATABASE DEVELOPER): St. Loc' mechanical valve. Stable, continue warfarin. [...] 2016 Assessment & Plan (12/30/2020 12:33 PM SENIOR SQL SERVER DATABASE DEVELOPER): Mild and asymptomatic on recent Exercise Bike ECHO: Medical managment for now, follow up with Dr. Rouse in 6 months. Assessment & Plan (10/14/2019 1:32 PM SENIOR SQL SERVER DATABASE DEVELOPER): Mild and asymptomatic on recent Exercise Bike [...] discomfort. Assessment & Plan (12/30/2020 12:24 PM SENIOR SQL SERVER DATABASE DEVELOPER): Stable on warfarin and BB, asymptomatic. Assessment & Plan (08/05/2020 9:20 AM CDT): No symptoms or concern regarding uncontrolled rate, remains anticoagulated secondary to her mechanical aortic valve. Assessment & Plan (10/14/2019 1:25 PM SENIOR SQL SERVER DATABASE DEVELOPER): Stable on warfarin and BB> Long-term insulin use 11/04/2014 Paresis 05/22/2014 COPD (chronic obstructive pulmonary disease) Overview (05/11/2016): Doing well with Spiriva and off Qvar. Not needing albuterol. History of CO (myocardial infarction) 04/21/2014 Overview (04/21/2014): QUESTIONABLE, await records. Demand ischemia? No blockage per the patient. Pacemaker was placed for bradycardia. ??? 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 Last EF recovered noted to be 60% in June 2020. No decline in functional status, continues to be [place] Heart Association class 1-2. Remains on carvedilol 25 mg twice daily, losartan 25 mg daily, spironolactone 12.5 mg daily and her loop diuretic. No changes in therapy at this time. Most recent lab work in Care Everywhere is stable. Assessment & Plan (08/05/2020 9:19 AM CDT): No decline in functional status, presently [place] Heart Association class 1-2. Remains on carvedilol 25 mg twice daily, losartan 25 mg daily, spironolactone 12.5 mg daily and her loop diuretic. 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 [facility] in April 2019 showed Mild nonobstructive [...] therapy. Assessment & Plan (10/14/2019 1:24 PM SENIOR SQL SERVER DATABASE DEVELOPER): Stable, denies chest pain. [facility] in April showed Mild nonobstructive CAD. [...] GI bleed hospital stay 10/27/16 - 11/04/16, [facility] Presence of cardiac pacemaker 10/05/2010 Overview (02/02/2017): Overview: VVI Medtronic with recurrent interchangeable high and low impedance (lead was placed in 2005). RV lead replacement 12-26-2016 Replaced 2015 Assessment & Plan (10/14/2019 1:24 PM SENIOR SQL SERVER DATABASE DEVELOPER): Device function wnl, no changes. Family history [...] [facility] office follows tj. He is her associate financial planner. On warfarin. 11/05/2014 Assessment & Plan (10/14/2019 1:25 PM SENIOR SQL SERVER DATABASE DEVELOPER): St. Loc' mechanical valve. Stable, continue warfarin. Obstructive sleep apnea 04/06/2009 Overview (09/20/2020): [facility]: Overview: On CPAP, [...] bleed 10/27/2016 11/04/2016 Overview (11/12/2016): Hospital stay [facility]. Followed hot snare polypectomy by Dr. Lou [...] Brother Coronary Artery Disease,premature <65 female Daughter [place] Heart Disease Mother Hypertension Mother Relation Name [...] 96 09/20/2020 11:49 AM CDT Temperature 35.9 C (96.7 F) 09/20/2020 11:49 AM CDT Respiratory Rate 17 05/09/2019 12:55 PM CDT [...] 08/06/2015, 07/28/2014, Additional history exists MEDICARE AWV 12 MONTHS 05/11/2017 05/11/2016, 02/17/2015 Respiratory Syncytial [...] 7.0 Result Component 6.4( 7 6:22 AM SENIOR SQL SERVER DATABASE DEVELOPER) No Lang, Marnice A Procedures Procedure Name Priority Date/Time Associated Diagnosis Comments BASIC METABOLIC PANEL (CALCIUM TOTAL) STAT 05/09/2019 7:23 AM CDT 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 Hemolysis is known to cause elevations in this analyte. Caution should be exercised in the interpretation of this result. Recommend repeat testing if clinically indicated. Chloride 106 98 - 107 mmol/L 05/09/2019 8:06 AM [facility] CO2 24 22 - 29 mmol/L 05/09/2019 8:06 AM [facility] Glucose 118(H) 70 - 115 mg/dL 05/09/2019 8:06 AM [facility] Calcium 10.4(H) 8.4 - 10.2 mg/dL 05/09/2019 8:06 AM [facility] Anion Gap 17 8 - 18 05/09/2019 8:06 AM [facility] BUN/Creatinine Ratio 22 7 - 23 05/09/2019 8:06 AM [facility] Osmolality Calculated 301(H) 270 - 300 mOsm/kg 05/09/2019 8:06 AM [facility] eGFR 40(L) >60 mL/min/1. 73 m2 05/09/2019 8:06 AM [facility] Blood BLOOD SPECIMEN / Unknown Venipuncture / Unknown 05/09/2019 7:23 AM CDT 05/09/2019 7:38 AM [facility] Néstor Perry MD LAB - CHEMISTRY ORD ERABLES [address] [phone] * (ABNORMAL) HEMOGLOBIN A1C (01/26/2017 6:22 AM SENIOR SQL SERVER DATABASE DEVELOPER) Hemoglobin A1c 6.4(H) 4.4 - 6.3 % [facility] Estimated Average Glucose 137 mg/dL [facility] Comment: HbA1c Interpretation: Treatment target values recommended by ADA and other clinical organizations should be used to evaluate metabolic control in patients. Treatment Target Values: Normal : < 5.7% Pre-diabetes: 5.7-6.4% Diabetes: Equal to or greater than 6.5% Reference: [place] Diabetes Association Standards of Care in Diabetes -2014 In patients 70 years and older consider HbA1c target range of 7.0-7.5% Reference: Diabetes Mellitus in Older People: Position Statement on behalf of the International Association of Gerontology and Geriatrics (IAGG), the Diabetes Working Libertarian for Older People (EDWPOP), and the International Task Force of Experts in Diabetes. Juan Welsh et al. J [place] Medical Directors Association. 2012 Test results diagnostic [...] BLOOD SPECIMEN / Unknown 01/26/2017 6:22 AM SENIOR SQL SERVER DATABASE DEVELOPER 01/26/2017 6:25 AM SENIOR SQL SERVER DATABASE DEVELOPER Telma Jansen MD LAB - CHEMISTRY KATIA SHER Performing Organization Address [facility]/ZIP Co de Phone Number [address] [phone] * (ABNORMAL) MICROALB/CREAT RATIO URINE RANDOM PANEL (07/24/2016 7:53 AM CDT) Creatinine Urine 73 20 - 320 mg/dL [facility] Comment: Test Performed at: [place] [address] RYAN ROJAS DO,MPH Microalbumin Urine 2.8 mg/dL [facility] Comment: Reference Range Not established Test Performed at: [employer] [id number] [address] RYAN ROJAS DO,MPH Microalbumin/Creat inine Ratio 38(H) [...] LAB - URINE CHEMISTR Y ORDERABLES [facility] [address] [place] [address] * DIABETES EYE EXAM (03/13/2016) Scanned Document [...] 9:32 PM 07/08/2016 2:29 AM Care Teams Slp Teacher Relationship Specialty Start Date End Date Juana Mesa MD [address] [place] [address] PCP - General 04/11/21 Juana Mesa MD [address] [place] [address] 04/11/21 Juana Mesa MD [address] [place] [address] 07/01/20 Juana Mesa MD [facility] [place] [address] 12/22/19 Juana Mesa MD [address] [place] [address] 07/21/19 Juana Mesa MD [address] [place] [address] 07/12/18 Juana Mesa MD [address] [place] [address] Family Medicine 05/03/18 Ra Jara MD [address] [place] [phone] Endocrinology 04/21/14 Dada Lou MD [address] [place] [phone] Internal Medicine 11/09/15 Paco Holden MD [address] [place] [phone] Neurology 05/11/16 Paramjit Escobar MD [address] [place] [phone] Internal Medicine 11/23/16
--- OUTSIDE RECORDS SUMMARY | 2025-01-21 00:09 | XMS_ITS | Referral Summary ---
Author Organization [facility] Address [address] [place] [address] Care Team Providers Care Youth Associate Name Role Phone Juana Mesa MD Primary Care Provider [phone] Juana Mesa MD Unavailable Juana Mesa MD Unavailable Juana Mesa MD Unavailable Juana Mesa MD Unavailable Juana Mesa MD Unavailable Juana Mesa MD Unavailable Ra Jara MD Unavailable Dada Lou MD Unavailable Unavailable Paco Holden MD Unavailable [phone] Paramjit Escobar MD Unavailable [phone] Source Comments [facility],non-owned Affiliates and Associated Physician Practices is amultiple site organization consisting of ambulatory clinics and hospital sitesin [place], [place], [place] and [place]. This disclosure is being madepursuant to the Care Everywhere program and may not contain all information available regarding this patient. Last updated 18.[facility] Allergies Active Allergy Reactions Criticality Noted Date [...] Overview (09/20/2020): Last Assessment & Plan: D/w rn homecare and hospitalist and sent for direct admission to the hospital Aortic stenosis due to bicuspid aortic valve 01/2019 Vitamin D deficiency 10/31/2018 Overview (09/20/2020): Last Assessment & Plan: Stable Cont vitamin d supplement Anticoagulation monitoring, INR range 2.5-3.5 History of mitral valve replacement with mechani cindy valve 03/11/2018 Assessment & Plan (12/30/2020 12:41 PM ASSET CARD CLERK): St. Loc' mechanical valve. Stable, continue warfarin. [...] 2016 Assessment & Plan (12/30/2020 12:33 PM ASSET CARD CLERK): Mild and asymptomatic on recent Exercise Bike ECHO: Medical managment for now, follow up with Dr. Rouse in 6 months. Assessment & Plan (10/14/2019 1:32 PM ASSET CARD CLERK): Mild and asymptomatic on recent Exercise Bike [...] discomfort. Assessment & Plan (12/30/2020 12:24 PM ASSET CARD CLERK): Stable on warfarin and BB, asymptomatic. Assessment & Plan (08/05/2020 9:20 AM CDT): No symptoms or concern regarding uncontrolled rate, remains anticoagulated secondary to her mechanical aortic valve. Assessment & Plan (10/14/2019 1:25 PM ASSET CARD CLERK): Stable on warfarin and BB> Long-term insulin [...] 05/09/2013 Assessment & Plan (12/30/2020 12:30 PM ASSET CARD CLERK): Stable and asymptomatic. Last EF recovered noted to be 60% in June 2020. No decline in functional status, continues to be [place] Heart Association class 1-2. Remains on carvedilol 25 mg twice daily, losartan 25 mg daily, spironolactone 12.5 mg daily and her loop diuretic. No changes in therapy at this time. Most recent lab work in Care Everywhere is stable. Assessment & Plan (08/05/2020 9:19 AM CDT): No decline in functional status, presently [place] Heart Association class 1-2. Remains on carvedilol 25 mg twice daily, losartan 25 mg daily, spironolactone 12.5 mg daily and her loop diuretic. No changes in therapy at this time Coronary artery disease of n ative artery of [place] heart with stable angina pectoris 05/09/2013 Overview (05/11/2016): No chest discomfort Assessment & Plan (12/30/2020 12:39 PM ASSET CARD CLERK): Stable, denies chest pain. [facility] in April 2019 showed Mild nonobstructive [...] therapy. Assessment & Plan (10/14/2019 1:24 PM ASSET CARD CLERK): Stable, denies chest pain. [facility] in April showed Mild nonobstructive CAD. [...] GI bleed hospital stay 10/27/16 - 11/04/16, [facility] Presence of cardiac pacemaker 10/05/2010 Overview (02/02/2017): Overview: VVI Medtronic with recurrent interchangeable high and low impedance (lead was placed in 2005). RV lead replacement 12-26-2016 Replaced 2015 Assessment & Plan (10/14/2019 1:24 PM ASSET CARD CLERK): Device function wnl, no changes. Family history [...] [facility] office follows tj. He is her larriman. On warfarin. 11/05/2014 Assessment & Plan (10/14/2019 1:25 PM ASSET CARD CLERK): St. Loc' mechanical valve. Stable, continue warfarin. Obstructive sleep apnea 04/06/2009 Overview (09/20/2020): [facility] Overview: [...] bleed 10/27/2016 11/04/2016 Overview (11/12/2016): Hospital stay [facility]. Followed hot snare polypectomy by Dr. Lou [...] 7.0 Result Component 6.4( 7 6:22 AM ASSET CARD CLERK) No Lang, Marnice A Procedures Procedure Name Priority Date/Time Associated Diagnosis Comments BASIC METABOLIC PANEL (CALCIUM TOTAL) STAT 05/09/2019 7:23 AM CDT Coronary artery disease of [place] artery of [place] heart with stable angina pectoris (HCC) HEMOGLOBIN A1C Routine 01/26/2017 6:22 AM ASSET CARD CLERK MICROALB/CREAT RATIO URINE RANDOM PANEL Routine 07/24/2016 [...] 7 - 26 mg/dL 05/09/2019 8:06 AM T [facility] Creatinine 1.3(H) 0.6 - 1.2 mg/dL 05/09/2019 8:06 AM [facility] Sodium 142 136 - 145 mmol/L 05/09/2019 8:06 AM [facility] Potassium 5.1(H) 3.5 - 4.5 mmol/L 05/09/2019 8:06 AM [facility] Comment: Hemolysis detected in this specimen. Hemolysis is known to cause elevations in this analyte. Caution should be exercised in the interpretation of this result. Recommend repeat testing if clinically indicated. Chloride 106 98 - 107 mmol/L 05/09/2019 8:06 AM [facility] CO2 24 22 - 29 mmol/L 05/09/2019 8:06 AM [facility] Glucose 118(H) 70 - 115 mg/dL 05/09/2019 8:06 AM [facility] Calcium 10.4(H) 8.4 - 10.2 mg/dL 05/09/2019 8:06 AM [facility] Anion Gap 17 8 - 18 05/09/2019 8:06 AM [facility] BUN/Creatinine Ratio 22 7 - 23 05/09/2019 8:06 AM [facility] Osmolality Calculated 301(H) 270 - 300 mOsm/kg 05/09/2019 8:06 AM [facility] eGFR 40(L) >60 mL/min/1. 73 m2 05/09/2019 8:06 AM [facility] Blood BLOOD SPECIMEN / Unknown Venipuncture / Unknown 05/09/2019 7:23 AM CDT 05/09/2019 7:38 AM [facility] Néstor Perry MD LAB - CHEMISTRY ORD ERABLES [address] [phone] * (ABNORMAL) HEMOGLOBIN A1C (01/26/2017 6:22 AM ASSET CARD CLERK) Hemoglobin A1c 6.4(H) 4.4 - 6.3 % [facility] Estimated Average Glucose 137 mg/dL [facility] Comment: HbA1c Interpretation: Treatment target values recommended by ADA and other clinical organizations should be used to evaluate metabolic control in patients. Treatment Target Values: Normal : < 5.7% Pre-diabetes: 5.7-6.4% Diabetes: Equal to or greater than 6.5% Reference: [place] Diabetes Association Standards of Care in Diabetes -2014 In patients 70 years and older consider HbA1c target range of 7.0-7.5% Reference: Diabetes Mellitus in Older People: Position Statement on behalf of the International Association of Gerontology and Geriatrics (IAGG), the Diabetes Working Democrat for Older People (EDWPOP), and the International Task Force of Experts in Diabetes. Juan Welsh et al. J [place] Medical Directors Association. 2012 Test results diagnostic [...] BLOOD SPECIMEN / Unknown 01/26/2017 6:22 AM ASSET CARD CLERK 01/26/2017 6:25 AM ASSET CARD CLERK Telma Jansen MD LAB - CHEMISTRY KATIA SHER [facility] Organization Address City/State/ZIP Co de Phone Number [address] [phone] * (ABNORMAL) MICROALB/CREAT RATIO URINE RANDOM PANEL (07/24/2016 7:53 AM CDT) Creatinine Urine 73 20 - 320 mg/dL [facility] Comment: Test Performed at: [employer] [place] [address] RYAN ROJAS DO,MPH Microalbumin Urine 2.8 mg/dL [facility] Comment: Reference Range Not established Test Performed at: [employer] [id number] [employer] [address] RYAN ROJAS DO,MPH Microalbumin/Creat inine Ratio 38(H) [...] LAB - URINE CHEMISTR Y ORDERABLES [facility] [address] [place] [address] * DIABETES EYE EXAM (03/13/2016) Scanned Document [...] 9:32 PM 07/08/2016 2:29 AM Care Teams Youth Associate Relationship Specialty Start Date End Date Juana Mesa MD [address] [place] [address] PCP - General 04/11/21 Juana Mesa MD [address] [place] [address] 04/11/21 Juana Mesa MD [address] [place] [address] 07/01/20 Juana Mesa MD [address] [place] [address] 12/22/19 Juana Mesa MD [address] [place] [address] 07/21/19 Juana Mesa MD [address] [place] [address] [place], [place] [address] [address] 07/12/18 Juana Mesa MD [address] [place] [address] Family Medicine 05/03/18 [place] [address] [place] [phone] Endocrinology 04/21/14 [place] [address] [place] [phone] Internal Medicine 11/09/15 Paco Holden MD [address] [place] [phone] Neurology 05/11/16 Paramjit Escobar MD [address] [place] [phone] Internal Medicine 11/23/16
--- OUTSIDE RECORDS SUMMARY | 2025-01-21 00:09 | XMS_ITS | Patient Health Summary ---
Author Organization [facility] Address [address] [place] [address] Care Team Providers Care Pig Handler Name Role Phone Juana Mesa MD Primary Care Provider [phone] Juana Mesa MD Unavailable Juana Mesa MD Unavailable Juana Mesa MD Unavailable Juana Mesa MD Unavailable Juana Mesa MD Unavailable Juana Mesa MD Unavailable Ra Jara MD Unavailable Dada Lou MD Unavailable Unavailable Paco Holden MD Unavailable [phone] Paramjit Escobar MD Unavailable [phone] Note from [facility],non-owned Affiliates and Associated Physician Practices is amultiple site organization consisting of ambulatory clinics and hospital sitesin [place], [place], [place] and [place]. This disclosure is being madepursuant to the Care Everywhere program and may not contain all information available regarding this patient. 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 05/09/2013 History [...] (IIV3)(Given 09/09/2012, 09/04/2011, 09/10/2004, 08/26/2004) * Covid Creative Citizen primary monovalent 12+ yr 0.3mL Purple cap(Given [...] PM CDT Procedures * DERMATOPATHOLOGY(Performed 03/24/2024) * UT FIT/INSERT INTRAVAG SUPPORT DEVICE(Performed 11/23/2021) Performed for Intrinsic sphincter deficiency (ISD) * DERMATOPATHOLOGY(Performed 10/17/2021) * UT FIT/INSERT INTRAVAG SUPPORT DEVICE(Performed 10/04/2021) Performed for Stress incontinence, Urge incontinence * UT ANAL/URINARY MUSCLE STUDY(Performed 10/04/2021) Performed for Stress incontinence, Urge incontinence * UT INTRAABDOMINAL PRESSURE TEST(Performed 10/04/2021) Performed for Stress incontinence, Urge incontinence * UT CYSTOMETROGRAM W/GREETER GUEST SERVICES&UP(Performed 10/04/2021) Performed for Stress incontinence, Urge incontinence * URINALYSIS AUTO - POINT OF CARE (AMB) [facility](Performed 10/04/2021) Performed for Stress incontinence, Urge incontinence * PT-INR(Performed 06/07/2021) Performed for Anticoagulation monitoring, INR range 2.5-3.5, History of mitral valve replacement with mechanical valve * UT PM/ICD REMOTE TECH SERV(Performed 05/16/2021) Performed for Chronic atrial fibrillation (HCC), Atrioventricular block, complete (HCC), Presence of cardiac pacemaker * UT PM DEVICE INTERROGATE REMOTE(Performed 05/16/2021) Performed for [...] mitral valve replacement with mechanical valve * UT PM/ICD REMOTE TECH SERV(Performed 02/08/2021) Performed for Chronic atrial fibrillation (HCC), Presence of cardiac pacemaker * UT PM DEVICE INTERROGATE REMOTE(Performed 02/08/2021) Performed for [...] mitral valve replacement with mechanical valve * UT PM/ICD REMOTE TECH SERV(Performed 11/22/2020) Performed for Presence of cardiac pacemaker, Atrioventricular block, complete (HCC) * UT PM DEVICE INTERROGATE REMOTE(Performed 11/22/2020) Performed for [...] mitral valve replacement with mechanical valve * UT INSERT NON-INDWELLING BLADDER(Performed 09/20/2020) Performed for Mixed [...] mitral valve replacement with mechanical valve * UT TTE W/DOPPLER, COMPLETE(Performed 07/21/2020) Performed for Atrial [...] with mechanical valve * PT-INR(Performed 01/29/2020) * UT PM/ICD REMOTE TECH SERV(Performed 01/28/2020) Performed for Chronic atrial fibrillation (HCC), Presence of cardiac pacemaker, Atrioventricular block, complete (HCC) * UT PM DEVICE INTERROGATE REMOTE(Performed 01/28/2020) Performed for [...] RESULTS ORDER(Performed 08/18/2019) * PT-INR(Performed 08/15/2019) * UT PM/ICD REMOTE TECH SERV(Performed 07/26/2019) Performed for Chronic atrial fibrillation (HCC), Atrioventricular block, complete (HCC), Pacemaker * UT PM DEVICE INTERROGATE REMOTE(Performed 07/26/2019) Performed for [...] W/O DIFFERENTIAL(Performed 05/09/2019) Performed for CAD in bois forte artery * PT-INR [facility](Performed 05/09/2019) Performed for Coronary artery disease of bo[place]te artery 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 (HCC) * BASIC METABOLIC PANEL (CALCIUM TOTAL)(Performed 05/09/2019) Performed for Coronary artery disease of bois forte artery 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 (HCC) * [...] mitral valve replacement with mechanical valve * UT TTE W/DOPPLER, COMPLETE(Performed 04/07/2019) Performed for Chronic atrial fibrillation (HCC), Non-ischemic cardiomyopathy (HCC) * UT PM DEVICE PROGR EVAL SNGL(Performed 04/03/2019) Performed [...] with mechanical valve * PT-INR(Performed 01/09/2019) * UT PM/ICD REMOTE TECH SERV(Performed 01/08/2019) Performed for Atrioventricular block, complete (HCC), Chronic atrial fibrillation (HCC), Presence of cardiac pacemaker * UT PM DEVICE INTERROGATE REMOTE(Performed 01/08/2019) Performed for [...] mitral valve replacement with mechanical valve * UT PM/ICD REMOTE TECH SERV(Performed 06/21/2018) Performed for Chronic atrial fibrillation (HCC), Atrioventricular block, complete (HCC), Pacemaker * UT PM DEVICE INTERROGATE REMOTE(Performed 06/21/2018) Performed for [...] H/O mitralvalve replacement with mechanical valve * UT TTE W/DOPPLER, COMPLETE(Performed 03/15/2018) Performed for Prosthetic mitral valve regurgitation, subsequent encounter, Atrial fibrillation, unspecified type ([facility]) * PT-INR(Performed 03/14/2018) Performed for Anticoagulation goal [...] mention of complication, not stated as uncontrolled ([facility]) * DERMATOPATHOLOGY(Performed 06/24/2015) * DERMATOPATHOLOGY(Performed 06/24/2015) * HM DIABETES EYE EXAM(Performed 02/25/2015) * MICROALB/CREAT RATIO URINE RANDOM PANEL(Performed 02/23/2015) Performed for Type II or unspecified type diabetes mellitus with renal manifestations, not stated as uncontrolled ([facility]) * HEMOGLOBIN A1C - POINT OF CARE (AMB)(Performed 02/17/2015) Performed for Type II or unspecified type diabetes mellitus with renal manifestations, not stated as uncontrolled ([facility]) * LAB RESULTS ORDER(Performed 02/05/2015) * URIC ACID BLOOD(Performed 11/05/2014) Performed for Gout, unspecified * HEMOGLOBIN A1C - POINT OF CARE (AMB)(Performed 11/05/2014) Performed for Type II DM with renal manifestations, uncontrolled(250.42) * CULTURE AFB+SMEAR(Performed 10/31/2014) Performed for COPD (chronic obstructive pulmonary disease) ([facility]) * BRONCHOSCOPY (RIGID/FLEXIBLE)(Performed 10/30/2014) Performed for Other Dyspnea And Respiratory Abnormality * DIFFERENTIAL MANUAL FLUID(Performed 10/30/2014) Performed for COPD (chronic obstructive pulmonary disease) ([facility]) * CELL COUNT W DIFFERENTIAL FLUID(Performed 10/30/2014) Performed for COPD (chronic obstructive pulmonary disease) ([facility]) * CULTURE FUNGUS OTHER+FUNGUS SMEAR(Performed 10/30/2014) Performed for COPD (chronic obstructive pulmonary disease) ([facility]) * CULTURE BRONCHOALVEOLAR LAVAGE QNT+GRAM STAIN(Performed 10/30/2014) Performed for COPD (chronic obstructive pulmonary disease) ([facility]) * CULTURE AFB+SMEAR(Performed 10/30/2014) Performed for COPD (chronic obstructive pulmonary disease) ([facility]) * CULTURE FUNGUS OTHER+FUNGUS SMEAR(Performed 10/30/2014) Performed for COPD (chronic obstructive pulmonary disease) ([facility]) * CULTURE BRONCHIAL WASHING+GRAM STAIN(Performed 10/30/2014) Performed for COPD (chronic obstructive pulmonary disease) ([facility]) * CYTOLOGY NON-AUTOMOTIVE TIRE WORKER PANEL (STL)(Performed 10/30/2014) Performed for COPD (chronic obstructive pulmonary disease) ([facility]) * PROC BRONCHOSCOPY(Performed 10/30/2014) * GLUCOSE - [...] period is included. Case Report Dermatopathology Report Case: [id number] Authorizing Provider: Vashti Milan DO Collected: 03/24/2024 10:10 AM Ordering Location: [facility] - Received: 03/25/2024 07:13 AM DermPath Lab Pathologist: Meredith Burks MD Specimens: A) - Skin, left rastafarian B) - Skin, right chest 5:05 PM CDT DERMATOPATHOLOGY LABORATORY Final Diagnosis Specimen A. SKIN, left rastafarian: BENIGN VERRUCOUS KERATOSIS (L82.1) Specimen B. SKIN, right chest: HYPERPLASTIC (HYPERTROPHIC) ACTINIC KERATOSIS (L57.0) 5:05 PM CDT DERMATOPATHOLOGY LABORATORY Clinical History A-B: r/o NMSC 5:05 PM CDT DERMATOPATHOLOGY LABORATORY Gross Description Specimen A: Received is one formalin filled container labeled with the patient's name and designated left rastafarian. The specimen consists of a shave biopsy measuring 7x5x3 mm. Jar 0. Specimen B: Received is one formalin filled container labeled with the patient's name and designated right chest. The specimen consists of a shave biopsy measuring 7x4x1 mm. Jar 0. 5:05 PM CDT DERMATOPATHOLOGY LABORATORY Microscopic Description Specimen A. SKIN, left rastafarian: Sections show hyperkeratosis, papillomatosis, hypergranulosis, and acanthosis. [...] characteristic determined by the Dermatopathology Laboratory at [facility], directed by Dr. Ines Maldonado. These tests need not be, and therefore are not, approved by the [place] Food and Drug Administration. The tests are used for clinical purposes. Billing Codes Specimen Charges Stain Charges 27821 30630 1 1 4 5:05 PM CDT DERMATOPATHOLOGY LABORATORY Embedded Images 4 5:05 PM CDT DERMATOPATHOLOGY LABORATORY Pathology/Cytology TISSUE SPECIMEN FROM SKIN / Unknown 03/24/2024 10:10 AM CDT 03/25/2024 7:13 AM CDT Miscellaneous samples (specimen) TISSUE SPECIMEN FROM SKIN / Unknown 03/24/2024 10:10 AM CDT 03/25/2024 7:13 AM CDT Vashti Milan DO LAB - PATHOLOGY/C YTOLOGY ORDERABLES DERMATOPATHOLOGY LABORATORY [facility] Department of Dermatology [address], [address] [phone] * UT FIT/INSERT INTRAVAG SUPPORT DEVICE (11/23/2021 11:43 AM CORPORATE LIBRARIAN) Narrative Sarabjit Gonsalves Che, MD - 11/23/2021 11:43 AM CORPORATE LIBRARIAN Sarabjit Gonsalves Che, MD 11/23/2021 11:44 AM #5 incontinence pessary used Sarabjit Gonsalves MD PROCEDURE/MINOR SURG ICAL ORDERABLES * UT FIT/INSERT INTRAVAG SUPPORT DEVICE (10/04/2021 2:45 PM CORPORATE LIBRARIAN) Narrative Sarabjit Gonsalves Che, MD - 10/04/2021 2:45 PM CORPORATE LIBRARIAN Sarabjit Gonsalves Che, MD 10/04/2021 2:45 PM #4 incontinence pessary placed Sarabjit Gonsalves MD PROCEDURE/MINOR SURG ICAL ORDERABLES * UT CYSTOMETROGRAM W/GREETER GUEST SERVICES&UP, UT INTRAABDOMINAL PRESSURE TEST, UT ANAL/URINARY MUSCLE STUDY (10/04/2021 2:43 PM CORPORATE LIBRARIAN) Narrative Sarabjit Gonsalves Che, MD - 10/04/2021 2:43 PM CORPORATE LIBRARIAN Sarabjit Gonsalves Che, MD 10/04/2021 2:44 PM Multichannel Urodynamic Testing - Procedure Note [...] VLPP at 150 cc: 107 VLPP at [facility] : 40 Urethral pressure profilometry (UPP): Maximal urethral closure pressure (MUCP): 22 Leakage amount: Moderate amount Voiding pressure study (GREETER GUEST SERVICES): She voided via detrusor contraction and urethral relaxation. Her maximal detrusor during void (Pdet max) was 20 cm water. Her void was not phasic. Her post void residual by calculation during the voiding pressure study was 0 cc. Electromyolography (EMG) EMG patches were placed perianally [...] POCT neg Ketones UA POCT neg Specific Lysite UA 1.025 Blood Urine POCT neg pH UA 5.5 Protein UA neg Urobilinogen UA 0.2 Nitrite UA neg WBC UA neg Urine URINE / Unknown 10/04/2021 Sarabjit Gonsalves MD LAB - POINT OF CARE ORDERABLES * (ABNORMAL) PT-INR (06/07/2021 1:42 PM CDT) Only the most recent of120 resultswithin the time period is included. INR 4.1(H) [facility] Comment: Reference Range 0.9-1.1 Moderate-intensity Warfarin Therapy 2.0-3.0 Higher-intensity Warfarin Therapy 3.0-4.0 PT 38.3(H) 9.0 - 11.5 sec [facility] Comment: For additional information, please refer to http://education.Zelgor/faq/LHD204 (This link is being provided for informational/ educational purposes only.) REPORT COMMENT: FASTING:NO Test Performed at: [address] [id number] MARTINA GARRETT MD Blood BLOOD SPECIMEN / Unknown 06/07/2021 1:42 PM CDT 06/07/2021 1:43 PM CDT Lissette Platt APRN-CARTON GLUING MACHINE OPERATOR LAB - COAGULATION ORDERABLES [address] [address] * UT PM DEVICE INTERROGATE REMOTE, UT PM/ICD REMOTE TECH SERV (05/16/2021 9:00 AM CDT) Narrative Crystal Bear APRN-MIGUEL - 05/16/2021 9:00 AM CDT Crystal Bear APRN-MIGUEL 05/16/2021 9:05 AM Kay Winn is undergoing remote device monitoring. Interrogation of patient's pacemaker was performed with results as follows: Device: Medtronic Adapta single chamber pacemaker Mode: VVIR 60-130 bpm Presenting EGM: Ventricular paced rhythm Battery: 2.73 Volts; Estimated longevity 2.5 years Percent Paced: 99.8% in ventricle Sensing: R-waves 5.6 mV Impedance: Right Ventricular 517 ohms Threshold: Right Ventricular 0.375 V @ 0.4 ms Events: None Impression: Normal Device Function. Kay Winn notified this office that she will follow up with a local bowling ball mold assembler. Thank you for allowing me to participate in the care of your patient. If you have any questions or concerns please do not hesitate to contact me. Crystal Bear APRN-CARTON GLUING MACHINE OPERATOR PROCEDURE/AR NOR SURGICAL ORDERABLES * CARDIAC PROCEDURE ORDER (04/26/2021) Only the most recent of8 resultswithin the time period is included. Narrative 04/26/2021 Ordered by an unspecified provider. Scanned Document CARDIAC SERVICES ORD ERABLES * UT PM DEVICE INTERROGATE REMOTE, UT PM/ICD REMOTE TECH SERV (02/08/2021 12:18 PM CDT) Narrative Crystal Bear APRN-CNP - 02/08/2021 12:18 PM CDT Crystal Bear APRN-CNP 02/08/2021 12:28 PM Kay Winn is undergoing remote device monitoring. Interrogation of patient's pacemaker was performed with results as follows: Device: Medtronic Adapta single chamber pacemaker Mode: VVIR 60-130 bpm Presenting EGM: Ventricular paced rhythm Battery: 2.74 Volts; Estimated longevity 2.5 years Percent Paced: 99.9% in ventricle Sensing: R-waves 5.6 mV Impedance: Right Ventricular 525 ohms Threshold: Right Ventricular 0.5 V @ 0.4 ms Events: None Impression: Normal Device Function. Kay Winn will follow up with a remote check in 3 months. Thank you for allowing me to participate in the care of your patient. If you have any questions or concerns please do not hesitate to contact me. Crystal Bear APRN-CARTON GLUING MACHINE OPERATOR PROCEDURE/AR NOR SURGICAL ORDERABLES * UT PM DEVICE INTERROGATE REMOTE, UT PM/ICD REMOTE TECH SERV (11/22/2020 2:55 PM CORPORATE LIBRARIAN) Narrative Crystal Bear, JULIÁN-MIGUEL - 11/22/2020 2:55 PM CORPORATE LIBRARIAN MarianelaCrystal, JULIÁN-MIGUEL 11/22/2020 2:58 PM Kay Winn is undergoing remote device monitoring. Interrogation of patient's pacemaker was performed with results as follows: Device: Medtronic Adapta single chamber pacemaker Mode: VVIR 60-130 bpm Presenting EGM: Ventricular paced rhythm Battery: 2.74 Volts; Estimated longevity 3 years Percent Paced: 99.9% in ventricle Sensing: R-waves Not measured Impedance: Right Ventricular 518 ohms Threshold: Right Ventricular 0.5 V @ 0.4 ms Events: None Impression: Normal Device Function. Kay Winn will follow up with a remote check in 3 months. Thank you for allowing me to participate in the care of your patient. If you have any questions or concerns please do not hesitate to contact me. Crystal Bear APRN-[facility] PROCEDURE/AR NOR SURGICAL ORDERABLES * IMAGING RADIOLOGY XRAY RESULTS ORDER (11/20/2020) Only the most recent of2 resultswithin the time period is included. Anatomical Region Laterality Modality Other Provider Unknown IMAGING * UT INSERT NON-INDWELLING BLADDER (09/20/2020 12:52 PM CDT) Narrative Kristi Valverde MD - 09/20/2020 12:52 PM CDT Kristi Valverde MD 09/20/2020 12:59 PM Procedure note: Straight catheterization was performed after swabbing the urethra with betadine. A 14 Fr urethral catheter was inserted without difficulty and the bladder was drained for 20 mL. The patient tolerated the procedure well. Kristi Valverde MD PROCEDURE/MINOR CASSIE GICAL ORDERABLES * UT TTE W/DOPPLER, COMPLETE (07/21/2020 3:28 PM CDT) Only the most recent of3 resultswithin the time period is included. Narrative Parul Jovel MD - 07/21/2020 3:28 PM CDT Parul Jovel MD 07/27/2020 9:32 AM [facility] CARDIOLOGY 2-D & M-Mode Echocardiogram Report Color Flow Doppler Report Patients Name: Kay Winn : 1945 Age: [age] year old Gender: female Date of Test: 07/21/2020 Referring Physician: Paramjit Escobar MD [address] [facility] [address] [id number] Primary Care Physician: Juana Mesa MD Introduction: [...] indeterminate. - There is left ventricular hypertrophy. Normal systolic function without regional wall motion abnormalities; however endocardial definition is poor. Ejection fraction is estimated to be 55-60%. - Indeterminate LV diastolic function. - Normal right ventricular size and systolic function. RV wire is present. - Moderate pulmonary hypertension; estimated RVSP 55 mmHg (assuming an RA pressure of 5 mmHg). IVC not well visualized. - Left atrial size is not well visualized. Right atrial size is enlarged. - Not well visualized aortic valve. Mean AV gradient is 21 mmHg. Peak AV velocity is 2.95 m/s. There is likely at least mild aortic stenosis. AV area not calculated due to unreliable data (LVOT VTI and LVOT diameter not well measured on current study). No aortic regurgitation. - Status post mechanical mitral valve replacement (uknown valve metal riveter/size). The prosthesis is poorly visualized; grossly normal leaflet motion and no abnormal rocking of the prosthesis. No mitral regurgitation. Mean mitral valve gradient is 3.4 mmHg (at 63 bpm). - Normal tricuspid valve structure. Moderate-severe tricuspid regurgitation. - Normal pulmonary valve structure with normal velocities. Mild pulmonary insufficiency. - Normal pericardium. - Normal aortic root. Measures 3.0 at the sinus of Valsalva. Electronically signed by: Parul Jovel MD Date of Interpretation: 07/27/20 Date of Final Report: 07/27/20 Paramjit Escobar MD [...] Scanned Document CARDIAC SERVICES ORD ERABLES * UT PM DEVICE INTERROGATE REMOTE, UT PM/ICD REMOTE TECH SERV (01/28/2020 2:01 PM CORPORATE LIBRARIAN) Narrative Crystal Bear APRN-CNP - 01/28/2020 2:01 PM CORPORATE LIBRARIAN Crystal Bear APRN-CNP 01/28/2020 2:03 PM Remote interrogation of patient's pacemaker was performed on 01/13/20 with results as follows: Device: Medtronic Adapta single chamber pacemaker Mode: VVIR 60-130 bpm Battery: 2.75 Volts; Estimated longevity 4 years Percent Paced: 99.7% in ventricle Sensing: R-waves 5.6 mV Impedence: Right Ventricular 493 ohms Threshold: Right Ventricular 0.5 V @ 0.4 ms Events: None Impression: Normal Device Function. Kay Winn will follow up in clinic in 3 months. Thank you for allowing me to participate in the care of your patient. If you have any questions or concerns please do not hesitate to contact me. Crystal ALEXANDER PROCEDURE/AR NOR SURGICAL ORDERABLES * Implant Device Check (Office) (10/14/2019 1:14 PM CORPORATE LIBRARIAN) Narrative PlattLissette CATHERINE Souza - 10/14/2019 1:14 PM CORPORATE LIBRARIAN Lissette Platt LibbyCATHERINE 10/14/2019 1:32 PM Kay Blair Winn presented to device clinic for follow up of the patient's Medtronic PPM. Interrogation was performed with results as follows: Device: Medtronic PPM Mode: VVIR Battery: 2.75 Volts; Estimated longevity 4.5 yrs Percent Paced: 99.9% in ventricle Sensing: R-wavesV paced 30 mV Impedence: Right Ventricular 501ohms Threshold: Right Ventricular 0.75 V @ 0.4 ms Events: Perm. AF Changes: None Impression: Normal Device Function. Kay Winn will follow up with a remote check in 3 months and a follow-up in device clinic in 6 months. Thank you for allowing me to participate in the care of your patient. If you have any questions or concerns please do not hesitate to contact me. Lissette Libby Giulia ALEXANDER PROCEDURE/MINOR S URGICAL ORDERABLES * UT PM DEVICE INTERROGATE REMOTE, UT PM/ICD REMOTE TECH SERV (07/26/2019 1:21 PM CDT) Narrative Marina Elliott APRN-CNP - 07/26/2019 1:21 PM CDT Marina Elliott APRN-CNP 07/26/2019 1:37 PM [facility] 07/09/19 reveals no tachyarrhythmias. V paced 99.9%. Battery voltage, lead impedance, pacing threshold WNL. No intrinsic R to measure. Estimated battery longevity 5 yr(see printout in media) Marina ALEXANDER PROCEDURE/M INOR SURGICAL ORDERABLES * ECHO STRESS [...] Angiograph y Narrative 05/11/2019 8:56 PM CDT [facility] Cardiac Catheterization Procedure Note Patient: Kay Winn Age: [age] year old Date of : 1945 Date of Admission: 05/09/2019 Procedure Date: 05/09/19 FELLOW / WILD LIFE MANAGER: Vince Canas MD ATTENDING PHYSICIAN: Néstor Perry MD PREVIOUS STRESS STUDIES WITHIN 6 MONTHS: N/A DIAGNOSTIC APPROPRIATENESS CRITERIA: HISTORY: Jose Is 73 y/o F with PMH significant non-ischemic cardiomyopathy, coronary artery disease, mechanical mitral valve replacement, chronic atrial fibrillation, type II diabetes mellitus, gastric ulcer, complete AV block s/p PPM, aortic valve stenosis, chronic kidney disease stage III, and CVA who presents for scheduled coronary angiography for pre-operative aortic valve evaluation. ACCESS SITE(S): right radial artery PROCEDURAL OVERVIEW: After obtaining informed consent and positioning the patient on the catheterization table, a timeout was performed to confirm the patient s name, date of , and procedure. Sedation was initiated and the patient was prepped and draped using standard sterile technique. Lidocaine was used for local anesthesia over the access site, after which the vessel was accessed and a sheath was placed using the modified Seldinger technique. Access was uncomplicated. Intra-arterial verapamil and intravenous heparin were administered to minimize risk of radial artery spasm or occlusion. Coronary angiography was performed using 5F Tig and 5 FL3.5 catheter(s). At the conclusion of the procedure, hemostasis was achieved using a radial compression device after removal of all catheters, wires, and sheaths. SEDATION: Moderate sedation on this adult patient [...] evaluation, please review the evaluation forms in [facility]. For details on monitored clinical parameters during the intra-service sedation time, please review the procedure nurse documentation in [facility]. COMPLICATIONS: None BLOOD LOSS: Minimum CONTRAST TOTAL: 30 cc ANGIOGRAPHY: i. Left main: Large caliber vessel, angiographically free of disease. Bifurcating into Left anterior descending artery and left circumflex artery. ii. LAD: Medium caliber vessel with minimal luminal irregularities in the distal segment. Branching Diagonal 1 is small caliber vessel with mild disease in proximal segment. Diagonal 2 is small caliber with 50% lesion at its ostium. iii. LCx: Non-dominant, medium caliber vessel which tapers into small vessel as it courses through AV groove, angiographically free of disease. Branching OM1 is medium caliber vessel without significant disease. iv. RCA: Dominant, medium caliber vessel with luminal irregularities measuring up to 10% in the mid segment. Bifurcating into rPL and rPDA, both medium caliber vessels and angiographically free of disease. Fluoroscopy of MV: mechanical valve and leaflets appears moving appropriately and no rocking motion DOMINANCE: Right DIAGNOSTIC INTERPRETATIONS: 1. Mild non-obstructive coronary artery disease. RECOMMENDATIONS AFTER DIAGNOSTIC CATHETERIZATION: Medical management of nonobstructive CAD. Aspirin 81 mg QDAY indefinitely. Aggressive modification of atherosclerotic risk factors. No cardiac contraindication to proceeding with aortic valve evaluation. Vince Canas MD 05/09/2019 I was present for the entirety of the described procedure. Néstor Perry MD Paramjit Escobar MD CARDIAC CATERING STAFF MEMBER RAD IANT * (ABNORMAL) CBC W/O DIFFERENTIAL (05/09/2019 7:24 AM CDT) Only the most recent of6 resultswithin the time period is included. WBC 8.4 3.5 - 10.5 10 3/uL 05/09/2019 7:40 AM [facility] RBC 4.10 3.90 - 5.00 10 6/uL 05/09/2019 7:40 AM [facility] Hemoglobin 13.2 12.0 - 15.5 g/dL 05/09/2019 7:40 AM [facility] Hematocrit 40.1 35.0 - 45.0 % 05/09/2019 7:40 AM [facility] MCV 97.8(H) 81.0 - 97.0 fL 05/09/2019 7:40 AM [facility] MCH 32.2 28.0 - 34.0 pg 05/09/2019 7:40 AM [facility] MCHC 32.9 32.0 - 36.0 g/dL 05/09/2019 7:40 AM [facility] Platelet Count 157 150 - 400 10 3/uL 05/09/2019 7:40 AM [facility] RDW-SD 53.3(H) 36.0 - 50.0 fL 05/09/2019 7:40 AM [facility] RDW-CV 15.0(H) 11.2 - 14.8 % 05/09/2019 7:40 AM [facility] MPV 9.7 9.3 - 12.8 fL 05/09/2019 7:40 AM [facility] nRBC Absolute 0.00 0 10 3/uL 05/09/2019 7:40 AM [facility] nRBC Auto 0.0 0 /100 WBC 05/09/2019 7:40 AM [facility] Blood BLOOD SPECIMEN / Unknown Venipuncture / Unknown 05/09/2019 7:24 AM CDT 05/09/2019 7:38 AM CDT Néstor Perry MD LAB - HEMATOLOGY OR DERABLES [address] [phone] * (ABNORMAL) PT-INR [facility] (05/09/2019 7:23 AM CDT) Only the most recent of71 resultswithin the time period is included. [facility] Signature PT 27.1(H) 12.1 - 14.8 Seconds 05/09/2019 7:50 AM [facility] INR 2.7 See Comment 05/09/2019 7:50 AM [facility] Comment: The suggested therapeutic range for standard coumadin (warfarin) therapy is an INR of 2.0-3.0. For high-risk patients (Mechanical Mitral Valve Prosthesis, etc.), the suggested prophylactic therapeutic range is an INR of 2.5-3.5. Blood BLOOD SPECIMEN / Unknown Venipuncture / Unknown 05/09/2019 7:23 AM CDT 05/09/2019 7:38 AM CDT Néstor Perry MD LAB - COAGULATION O RDERABLES [address] [phone] * (ABNORMAL) BASIC METABOLIC PANEL (CALCIUM TOTAL) (05/09/2019 7:23 AM CDT) Only the most recent of13 resultswithin the time period is included. BUN 28(H) 7 - 26 mg/dL 05/09/2019 8:06 AM [facility] Creatinine 1.3(H) 0.6 - 1.2 mg/dL 05/09/2019 8:06 AM [facility] Sodium 142 136 - 145 mmol/L 05/09/2019 8:06 AM [facility] Potassium 5.1(H) 3.5 - 4.5 mmol/L 05/09/2019 8:06 AM [facility] Comment: Hemolysis detected in this specimen. Hemolysis is known to cause elevations in this analyte. Caution should be exercised in the interpretation of this result. Recommend repeat testing if clinically indicated. Chloride 106 98 - 107 mmol/L 05/09/2019 8:06 AM [facility] CO2 24 22 - 29 mmol/L 05/09/2019 8:06 AM [facility] Glucose 118(H) 70 - 115 mg/dL 05/09/2019 8:06 AM [facility] Calcium 10.4(H) 8.4 - 10.2 mg/dL 05/09/2019 8:06 AM CDT [facility] Anion Gap 17 8 - 18 05/09/2019 8:06 AM T [facility] BUN/Creatinine Ratio 22 7 - 23 05/09/2019 8:06 AM T [facility] Osmolality Calculated 301(H) 270 - 300 mOsm/kg 05/09/2019 8:06 AM T [facility] eGFR 40(L) >60 mL/min/1. 73 m2 05/09/2019 8:06 AM CDT [facility] Blood BLOOD SPECIMEN / Unknown Venipuncture / Unknown 05/09/2019 7:23 AM CDT 05/09/2019 7:38 AM CDT Néstor Perry MD LAB - CHEMISTRY ORD ERABLES [facility] [address] [place] [address] * CT ANGIO TAVR CHEST ABD PEL [...] infection. Report dictated by Binh Martinez DO (vice president commercial bank). I, Dr. Yolanda MCCARTHY M.D. have personally reviewed and interpreted this examination/study. This report was electronically signed by Yolanda MCCARTHY M.D. on 05/06/2019 1:53 PM . Narrative 05/06/2019 1:53 [...] the descending colon are outside of the [id number]. The appendix is not seen; however, no [...] the descending colon are outside of the [id number]. The appendix is not seen; however, no [...] infection. Report dictated by Binh Martinez DO (vice president commercial bank). I, Dr. Yolanda MCCARTHY M.D. have personally reviewed and interpretedthis examination/study. This report was electronically signed by Yolanda MCCARTHY M.D. on 05/06/2019 1:53 PM . Paramjit Escobar MD CT ORDERABLES * (ABNORMAL) CREATININE BLOOD - POCT (IP) [facility] (05/02/2019 1:35 PM CDT) [facility] Creatinine POCT 1.35(A) 0.3 - 1.3 mg/dL [facility] POCT TESTING eGFR POCT 41(A) 60 ml/min [facility] Blood BLOOD SPECIMEN / Unknown 05/02/2019 1:35 PM CDT Paramjit Escobar MD LAB - POINT OF CARE ORDERABLES Performing Organization Address City/State/[facility] Co de Phone Number [facility] POCT TESTING [address] [place] [address] * (ABNORMAL) CBC WITH DIFFERENTIAL (05/02/2019 12:43 PM CDT) Only the most recent of26 resultswithin the time period is included. [facility] WBC 8.9 3.5 - 10.5 10 3/uL 05/02/2019 12:55 PM CDT [facility] RBC 4.09 3.90 - 5.00 10 6/uL 05/02/2019 12:55 PM CDT [facility] Hemoglobin 13.3 12.0 - 15.5 g/dL 05/02/2019 12:55 PM [facility] Hematocrit 39.7 35.0 - 45.0 % 05/02/2019 12:55 PM [facility] MCV 97.1(H) 81.0 - 97.0 fL 05/02/2019 12:55 PM [facility] MCH 32.5 28.0 - 34.0 pg 05/02/2019 12:55 PM [facility] MCHC 33.5 32.0 - 36.0 g/dL 05/02/2019 12:55 PM [facility] Platelet Count 166 150 - 400 10 3/uL 05/02/2019 12:55 PM [facility] RDW-SD 51.0(H) 36.0 - 50.0 fL 05/02/2019 12:55 PM [facility] RDW-CV 14.7 11.2 - 14.8 % 05/02/2019 12:55 PM [facility] MPV 9.9 9.3 - 12.8 fL 05/02/2019 12:55 PM [facility] nRBC Absolute 0.00 0 10 3/uL 05/02/2019 12:55 PM [facility] nRBC Auto 0.0 0 /100 WBC 05/02/2019 12:55 PM [facility] Neutrophils % 71.6(H) 35.0 - 70.0 % 05/02/2019 12:55 PM [facility] Lymphocytes % 10.4(L) 19.7 - 55.1 % 05/02/2019 12:55 PM [facility] Monocytes % 12.5 3.0 - 15.0 % 05/02/2019 12:55 PM [facility] Eosinophils % 3.7 0.0 - 6.0 % 05/02/2019 12:55 PM [facility] Basophil % 0.7 0.0 - 1.5 % 05/02/2019 12:55 PM [facility] Neutrophils Absolute 6.3 1.6 - 7.0 10 3/uL 05/02/2019 12:55 PM [facility] Lymphocyte Absolute 0.9 0.8 - 2.9 10 3/uL 05/02/2019 12:55 PM CDT [facility] Monocytes Absolute 1.11(H) 0.14 - 0.66 10 3/uL 05/02/2019 12:55 PM CDT [facility] Eosinophils Absolute 0.33 0.00 - 0.45 10 3/uL 05/02/2019 12:55 PM CDT [facility] Basophils Absolute 0.06 0.00 - 0.06 10 3/uL 05/02/2019 12:55 PM CDT [facility] Immature Granulocytes % 1.1(H) 0.0 - 1.0 % 05/02/2019 12:55 PM CDT [facility] Blood BLOOD SPECIMEN / Unknown Lab Venipuncture / Unknown 05/02/2019 12:43 PM CDT 05/02/2019 12:49 PM CDT Paramjit Escobar MD LAB - HEMATOLOGY ORD ERABLES [facility] [address] [place] [address] * UT PM DEVICE PROGR EVAL SNGL (04/03/2019 7:45 AM CDT) Narrative Paramjit Escobar MD - 04/03/2019 7:45 AM CDT Paramjit Escobar MD 04/03/2019 7:45 AM Device interrogation discussed in progress note. Full interrogation scanned into record Paramjit Escobar MD PROCEDURE/MINOR SURG ICAL ORDERABLES * UT PM DEVICE INTERROGATE REMOTE, UT PM/ICD REMOTE TECH SERV (01/08/2019 5:40 PM CORPORATE LIBRARIAN) Narrative Marina Elliott APRN-CNP - 01/08/2019 5:40 PM CORPORATE LIBRARIAN Marina Elliott APRN-CNP 01/08/2019 5:40 PM [facility] transmission 12/17/18 reveals no tachyarrhythmias. V paced 100%. Battery voltage, lead impedance, pacing all WNL. No intrinsic R to measure(see printout in media) Marina ALEXANDER PROCEDURE/M INOR SURGICAL ORDERABLES * PT INR (EXTERNAL RESULT ENTRY) (08/19/2018) Only the most recent of2 resultswithin the time period is included. PT (EXTERNAL) 28.4 sec INR (EXTERNAL RESULT) 2.8 Blood BLOOD SPECIMEN / Unknown 08/19/2018 Paramjit Escobar MD LAB - CHEMISTRY KATIA SHARMILAKEISHA * UT PM DEVICE INTERROGATE REMOTE, UT PM/ICD REMOTE TECH SERV (06/21/2018 9:13 PM CDT) Narrative Marina Elliott APRN-CNP - 06/21/2018 9:13 PM CDT Marina Elliott APRN-CNP 06/21/2018 9:13 PM [facility] transmission reveals no tachyarrhythmias. V paced 99.9%. Battery voltage, lead impedance, pacing all WNL. No intrinsic R to measure(see printout) Marina ALEXANDER PROCEDURE/M INOR SURGICAL ORDERABLES * PATHOLOGY/CYTOLOGY REPORT ORDER (06/10/2018) Only the most recent of4 resultswithin the time period is included. Scanned Document LAB - PATHOLOGY/CYTO LOGY ORDERABLES * PROC PACEMAKER DEVICE CHECK (REMOTE) (12/04/2017 6:22 PM CORPORATE LIBRARIAN) Narrative [facility] RADIOLOG[facility] - 12/04/2017 6:22 PM CORPORATE LIBRARIAN Carelink transmission reveals no tachyarrhythmias. V paced 99.8%. Battery voltage, lead impedance, pacing threshold WNL. No intrinsic R to measure(see printout) Procedure Note ProviderDwayne MD - 05/03/2018 [facility] transmission reveals no tachyarrhythmias. V paced 99.8%. Battery voltage, lead impedance, pacing threshold WNL. No intrinsic R tomeasure(see printout) Marina ALEXANDER PROCEDURE/M INOR SURGICAL ORDERABLES [facility] RAD[facility] * PROC IMPLANT WEAR CARDIAC DEVICE EVAL (08/24/2017 11:51 AM CDT) Narrative [facility] RAD[facility] - 08/24/2017 11:51 AM CDT Pacemaker interrogation discussed in progress note from today. Full interrogation scanned into media Procedure Note ProviderDwayne MD - 05/03/2018 Pacemaker interrogation discussed in progress note from today. Fullinterrogation scanned into media Paramjit Escobar MD PROCEDURE/MINOR SURG ICAL ORDERABLES Performing Organization Address [facility] de Phone Number [facility] RAD[facility] * PROC PACEMAKER DEVICE CHECK (REMOTE) (08/15/2017 3:56 PM CDT) Narrative [facility] - 08/15/2017 3:56 PM CDT [facility] transmission reveals no tachyarrhythmia. V paced 99.6%. Battery voltage, lead impedance, pacing threshold all WNL. No intrinsic R noted(see printout) Procedure Note ProviderDwayne MD - 05/03/2018 [facility] transmission reveals no tachyarrhythmia. V paced 99.6%. Battery voltage, lead impedance, pacing threshold all WNL. No intrinsic Rnoted(see printout) Marina Elliott WIRE SPINNER-CARTON GLUING MACHINE OPERATOR PROCEDURE/M INOR SURGICAL ORDERABLES Performing Organization Address [facility] de Phone Number [facility] RAD[facility] * CULTURE URINE (05/23/2017 10:28 AM CDT) Only the most recent of6 resultswithin the time period is included. Urine Culture Routine SEE NOTE [facility]MA[facility] ([facility]) Comment: CULTURE, URINE, ROUTINE MICRO NUMBER: [id number] TEST STATUS: FINAL SPECIMEN SOURCE: URINE SPECIMEN QUALITY: ADEQUATE RESULT: Multiple organisms present, each less than 10,000 CFU/mL. These organisms, commonly found on external and internal genitalia, are considered to be colonizers. No further testing performed. REPORT COMMENT: SPECIMEN TYPE->URINE Test Performed at: [facility] [place] - [address] [address] MARTINA GARRETT MD 05/23/2017 10:2 8 AM CDT 05/24/2017 2:02 AM CDT Nicole Quiles MD LAB - MICROBIOLOGY O RDERABLES Performing Organization Address [facility] Co de Phone Number [facility] ([facility]) * URINALYSIS COMPLETE W MICROSCOPIC (PO REF) (02/13/2017 10:43 AM CDT) Only the most recent of3 resultswithin the time period is included. Color UA YELLOW YELLOW [facility] Appearance CLEAR CLEAR [facility] Specific Lysite UA 1.016 1.001 - 1.035 [facility] pH [...] Comment: REPORT COMMENT: FASTING:NO Test Performed at: [facility] [address] [place] [address] HERMELINDO ROJAS DO,MPH Urine URINE SPECIMEN OBTAINED BY CLEAN CATCH PROCEDURE / Unknown 02/13/2017 10:43 AM CDT 02/13/2017 10:44 AM CDT Bebo Hansen MD LAB - URINALYSIS ORD ERABLES [facility] [address] [place] [address] * (ABNORMAL) URINALYSIS MICROSCOPIC ONLY REFLEXED (PO [...] CDT 02/09/2017 Narrative Resulting Agency Comment [facility] [address] [facility] [phone] Bebo Hansen MD LAB - URINALYSIS ORD ERABLES [facility] INSURANCE BILL [address] [place] [address] * (ABNORMAL) URINALYSIS ROUTINE W/REFLEX TO CULTURE (02/09/2017 1:15 PM CDT) Only the most recent of5 resultswithin the time period is included. Specific Lysite UA 1.023 1.005 - 1.030 [facility] INSURANCE [...] CDT 02/09/2017 Narrative Resulting Agency Comment [facility] [address] [facility] [phone] Bebo Hansen MD LAB - URINALYSIS ORD ERABLES Performing Organization Address City/[facility]/ZIP Co de Phone Number [facility] INSURANCE BILL [address] [place] [address] * FECAL LEUKOCYTES (02/09/2017 1:13 PM CDT) White Blood Cells (WBC), Stool Final report None Seen [facility] INSURANCE BILL Result 1 [facility] INSURANCE BILL Comment:No white blood cells seen. Stool STOOL SPECIMEN / Unknown 02/09/2017 1:13 PM CDT 02/09/2017 Narrative Resulting Agency Comment [facility] [address] [facility] [phone] Authorizing Provider Result Misha Hansen MD LAB - BODY FLUID ORD ERABLES Performing Organization Address [facility] Co de Phone Number [facility] INSURANCE BILL [address] [place] [address] * O+P PANEL (02/09/2017 1:13 PM CDT) [...] PM CDT 02/09/2017 Narrative Resulting Agency Comment [facility] [address] [facility] [phone] Authorizing Provider Result Misha Hansen MD LAB - MICROBIOLOGY O RDERABLES Performing Organization Address [facility] Co de Phone Number [facility] INSURANCE BILL [address] [place] [address] * CULTURE STOOL PANEL (02/09/2017 1:13 PM [...] CDT 02/09/2017 Narrative Resulting Agency Comment [facility] [address] [facility] [phone] Bebo Hansen MD LAB - MICROBIOLOGY O RDERABLES [facility] INSURANCE BILL [address] [place] [address] * CLOSTRIDIUM DIFFICILE TOXIN A+B (02/09/2017 1:11 PM CDT) C difficile Toxin A + B Negative Negative [facility] INSURANCE BILL 02/09/2017 1:11 PM CDT 02/09/2017 Narrative Resulting Agency Comment [facility] [address] [facility] [phone] Bebo Hansen MD LAB - MICROBIOLOGY O RDERABLES Performing Organization Address City/[facility] Co de Phone Number [facility] INSURANCE BILL [address] [place] [address] * (ABNORMAL) SLIDE SCAN HEMATOLOGY (02/02/2017 12:13 PM CORPORATE LIBRARIAN) Anisocytosis 2+(A) None 02/02/2017 1:10 PM CORPORATE LIBRARIAN [facility] Poikilocytosis 2+(A) None 02/02/2017 1:10 PM CORPORATE LIBRARIAN [facility] Polychromasia Occasiona l(A) None 02/02/2017 1:10 PM CORPORATE LIBRARIAN [facility] Elliptocytes Occasiona l(A) None 02/02/2017 1:10 PM CORPORATE LIBRARIAN [facility] Tear Drop Cells 1+(A) None 7 1:10 PM CORPORATE LIBRARIAN [facility] Blood BLOOD SPECIMEN / Unknown Lab Venipuncture / Unknown 02/02/2017 12:13 PM CORPORATE LIBRARIAN 02/02/2017 12:14 PM CORPORATE LIBRARIAN Bebo Hansen MD LAB - HEMATOLOGY ORD ERABLES [facility] [address] [place] [address] * (ABNORMAL) GLUCOSE ACCUCHECK (01/27/2017 11:22 AM CORPORATE LIBRARIAN) Only the most recent of28 resultswithin the time period is included. Glucose, Fingerstick 154(H) 70-115mg/d L mg/dL [facility]AL [facility]) Comment:Site Manager: JOHAN MIDDLETON 01/27/2017 11:2 2 AM CORPORATE LIBRARIAN Telma Jansen MD LAB - CHEMISTRY ORDE RABLES [facility]) * (ABNORMAL) PTT SLU (01/27/2017 6:44 AM CORPORATE LIBRARIAN) Only the most recent of7 resultswithin the time period is included. [facility] APTT 44.1(H) 23.0 - 38.4 Seconds [facility] Comment:Suggested therapeuti c range for full dose I.V. heparin therapy for venous thromboembolism is 66.0-91.0 seconds. Blood specimen (specimen) BLOOD SPECIMEN / Unknown 01/27/2017 6:44 AM CORPORATE LIBRARIAN 01/27/2017 6:59 AM CORPORATE LIBRARIAN Narrative [facility] - 01/27/2017 7:19 AM CORPORATE LIBRARIAN Please ensure that the aPTT specimen is received in the clinical lab within 1 hour of collection if it is used for therapeutic heparin monitoring. Processing of heparinized specimens older than 1 hour may result in inaccurate test results. Is patient on Heparin, Argatroban or Dabigatran?->Y Telma Jansen MD LAB - COAGULATION OR DERABLES [address] [phone] * ADRIANA BLOOD SCREEN (01/27/2017 6:43 AM CORPORATE LIBRARIAN) Pathologist [facility] ADRIANA None Detected None Detected [facility] Venous blood specimen (specimen) 01/27/2017 6:43 AM CORPORATE LIBRARIAN 01/27/2017 7:00 AM CORPORATE LIBRARIAN Telma Jansen MD LAB - CHEMISTRY ORDE RABKEISHA [address] [phone] * HIV-1 HIV-2 ANTIGEN/ANTIBODY (01/27/2017 6:43 AM CORPORATE LIBRARIAN) HIV Antigen/Antibod y 1 & 2 Non-reacti ve Non-react lennox [facility] Comment: Neither HIV-1 p24 Antigen nor HIV-1/HIV-2 Antibodies are detected. Blood specimen (specimen) BLOOD SPECIMEN / Unknown 01/27/2017 6:43 AM CORPORATE LIBRARIAN 01/27/2017 7:00 AM CORPORATE LIBRARIAN Telma Jansen MD LAB - HEMATOLOGY ORD ERABLES Performing Organization Address [facility]/ZIP Co de Phone Number [address] [phone] * (ABNORMAL) PROTEIN ELECTROPHORESIS WO INTERP BLOOD (01/27/2017 6:43 AM CORPORATE LIBRARIAN) Interpretation Serum PE Normal Pattern Normal Pattern [facility] Comment: Serum protein electrophoresis shows characteristic bands corresponding to albumin, alpha and beta globulins and polyclonal immunoglobulins. No monoclonal immunoglobulins detected. Non-secretory myeloma (NSM) and light chain only myeloma cannot be excluded on the basis of this result. Recommend serum free light chain measurements for complete evaluation of multiple myeloma. Measurement of serum free kappa and lambda immunoglobulin light chains can identify all patients with light chain only myeloma and up to 70% of patients with NSM. Alyssa Colbert, PhD *The electrophoresis pattern and the interpretation have been reviewed and verified by the teaching physician. Protein Total 5.3(L) 6.0 - 8.3 g/dL [facility] Albumin 3.2(L) 3.3 - 5.6 g/dL [facility] Alpha-1 Globulins 0.3 0.1 - 0.3 g/dL [facility] Alpha-2 Globulins 0.6 0.5 - 1.0 g/dL [facility] Beta Globulins 0.7 0.6 - 1.1 g/dL [facility] Gamma Globulins 0.6 0.6 - 1.6 g/dL [facility] Blood specimen (specimen) BLOOD SPECIMEN / Unknown 01/27/2017 6:43 AM CORPORATE LIBRARIAN 01/27/2017 7:00 AM CORPORATE LIBRARIAN Telma Jnasen MD LAB - CHEMISTRY KATIA SHER Performing Organization Address [facility]/ZIP Co de Phone Number [address] [phone] * SEROTONIN RELEASE ASSAY PANEL (01/27/2017 6:43 AM CORPORATE LIBRARIAN) [facility] Low Dose Heparin 5 0 - 20 % [facility] (BEAKER) DARIN High Dose Heparin 2 0 - 20 % [facility] (BEAKER) Interpretation DARIN Comment S [facility] (BEAKER) Comment: [facility] Result: NEGATIVE COMMENT: While these results argue against a diagnosis of heparin- induced-thrombocytopenia (HIT), they do not completely exclude the diagnosis. The result should be interpreted in conjunction with other HIT assays, and the context of all the clinical information including the platelet count, the type of heparin administered, the duration of heparin exposure, previous heparin exposure and any thrombotic history. The assay measures serotonin release from donor platelets in the presence of patient's serum and heparin. A positive result requires greater than or equal to 20% release in the presence of low dose (0.2 IU/mL) heparin and inhibition of serotonin release in the presence of high dose (100 IU/mL) heparin. This test was developed and its performance characteristics determined by [facility]. It has not been cleared or approved by the Food and Drug Administration. 01/27/2017 6:43 AM CORPORATE LIBRARIAN 01/27/2017 6:59 AM CORPORATE LIBRARIAN Narrative [facility] ([facility] - 01/30/2017 8:21 AM CORPORATE LIBRARIAN Performed at: [address] [place] [address] [id number] Investigation Division Sergeant: Hermelindo Rojo MD, Phone: [phone] Telma Jansen MD LAB - CHEMISTRY KATIA SHER Performing Organization Address City/[facility]/ZIP Co de Phone Number [facility] (BEAKER) * (ABNORMAL) TRANSFERRIN (01/27/2017 6:43 AM CORPORATE LIBRARIAN) Transferrin 199 174 - 382 mg/dL [facility] Transferrin Saturation % 15(L) 16 - 50 % [facility] Blood specimen (specimen) BLOOD SPECIMEN / Unknown 01/27/2017 6:43 AM CORPORATE LIBRARIAN 01/27/2017 7:00 AM CORPORATE LIBRARIAN Telma Jansen MD LAB - CHEMISTRY KATIA SHER [address] [phone] * DNA ANTIBODY DOUBLE STRANDED (01/27/2017 6:43 AM CORPORATE LIBRARIAN) dsDNA Antibody 1 0 - 29 IU/mL [facility] Comment: dsDNA Antibody Numeric Result Interpretation: 0 - 29 IU/mL: Negative 30 - 75 IU/mL: Borderline >75 IU/mL: Positive Blood specimen (specimen) BLOOD SPECIMEN / Unknown 01/27/2017 6:43 AM CORPORATE LIBRARIAN 01/27/2017 7:00 AM CORPORATE LIBRARIAN Telma Jansen MD LAB - HEMATOLOGY ORD ERACLAIR Performing Organization Address [facility]/[place] [address], [facility] [phone] * (ABNORMAL) IRON BLOOD (01/27/2017 6:43 AM CORPORATE LIBRARIAN) Iron 37(L) 40 - 150 mcg/dL [facility] Blood specimen (specimen) BLOOD SPECIMEN / Unknown 01/27/2017 6:43 AM CORPORATE LIBRARIAN 01/27/2017 7:00 AM CORPORATE LIBRARIAN Telma Jansen MD LAB - CHEMISTRY KATIA SHER Performing Organization Address City/[facility]/[place] [address], [facility] [phone] * HEPATITIS B SURFACE ANTIGEN W RFLX CONFIRMATION (01/27/2017 6:43 AM CORPORATE LIBRARIAN) Hepatitis B Virus Surface Antigen Non-reacti ve Non-reacti ve [facility] Blood specimen (specimen) BLOOD SPECIMEN / Unknown 01/27/2017 6:43 AM CORPORATE LIBRARIAN 01/27/2017 7:00 AM CORPORATE LIBRARIAN Telma Jansen MD LAB - CHEMISTRY KATIA SHER Performing Organization Address City/[facility]/ZIP Co de Phone Number [address] [phone] * HEPATITIS C ANTIBODY (01/27/2017 6:43 AM CORPORATE LIBRARIAN) Hepatitis C Antibody Non-react lennox Non-reac tive [facility] Comment: Hepatitis C Antibody screen indicates no serologic evidence of past or current infection with Hepatitis C Virus. Patients with unexplained liver disease who are immunocompromised or suspected of having acute Hepatitis C infection may benefit from Nucleic Acid Test (AFTAB) for Hepatitis C Viral RNA to confirm Hepatitis C status. Blood specimen (specimen) BLOOD SPECIMEN / Unknown 01/27/2017 6:43 AM CORPORATE LIBRARIAN 01/27/2017 7:00 AM CORPORATE LIBRARIAN Telma Jansen MD LAB - CHEMISTRY KATIA SHER Performing Organization Address [facility] Co de Phone Number [address] [phone] * GLOMERULAR BASE MEMBRANE ANTIBODY IGG (01/27/2017 6:43 AM CORPORATE LIBRARIAN) Antiglomerular BM Antibody 3 0 - 20 units [facility] (BEAKER) Comment: Negative 0 - 20 Weak Positive 21 - 30 Moderate to Strong Positive >30 Blood specimen (specimen) BLOOD SPECIMEN / Unknown 01/27/2017 6:43 AM CORPORATE LIBRARIAN 01/27/2017 6:59 AM CORPORATE LIBRARIAN Narrative [facility] (BEAKER) - 01/29/2017 5:09 PM CORPORATE LIBRARIAN Performed at: [address] [place] [address] [phone] Investigation Division Sergeant: Hermelindo Rojo MD, Phone: [phone] Telma Jansen MD LAB - CHEMISTRY KATIA SHER Performing Organization Address City/[facility]/ZIP Co de Phone Number [facility] ([facility] * (ABNORMAL) KAPPA/LAMBDA LITE CHAIN FREE PANEL (01/27/2017 6:43 AM CORPORATE LIBRARIAN) Free [place] Light Chains Quantitative 58.33(H) 3.30 - 19.40 mg/L [facility] (BEAKER) Free Lambda Light Chains Quantitative 35.33(H) 5.71 - 26.30 mg/L [facility] (BEAKER) [place]/Lambda Ratio 1.65 0.26 - 1.65 [facility] (BEAKER) Blood specimen (specimen) BLOOD SPECIMEN / Unknown 01/27/2017 6:43 AM CORPORATE LIBRARIAN 01/27/2017 6:59 AM CORPORATE LIBRARIAN Narrative [facility] (BEAKER) - 01/29/2017 5:09 PM CORPORATE LIBRARIAN Performed at: [address] [place] [address] Investigation Division Sergeant: Eagle Nguyen PhD, Phone: [phone] Telma Jansen MD LAB - CHEMISTRY KATIA SHER Performing Organization Address City/[facility] Co de Phone Number [facility] ([facility]) * HELICOBACTER PYLORI ANTIBODY IGG (01/27/2017 6:43 AM CORPORATE LIBRARIAN) Helicobacter pylori Antibody IgG <0.9 0.0 - 0.8 U/mL [facility] (BEAKER) Comment: Negative <0.9 Indeterminate 0.9 - 1.0 Positive >1.0 Blood specimen (specimen) BLOOD SPECIMEN / Unknown 01/27/2017 6:43 AM CORPORATE LIBRARIAN 01/27/2017 10:10 AM CORPORATE LIBRARIAN Narrative [facility] (BEAKER) - 01/30/2017 3:13 PM CORPORATE LIBRARIAN Performed at: [address] [place] [address] Investigation Division Sergeant: Eagle Nguyen PhD, Phone: [phone] Telma Jansen MD LAB - CHEMISTRY KATIA SHER [facility] ([facility]) * ENTAMOEBA HISTOLYTICA ANTIBODY (01/26/2017 8:31 PM CORPORATE LIBRARIAN) Amebiasis Antibody Negative Negative [facility] ([facility]) Blood specimen (specimen) BLOOD SPECIMEN / Unknown 01/26/2017 8:31 PM CORPORATE LIBRARIAN 01/26/2017 8:47 PM CORPORATE LIBRARIAN Narrative [facility] ([facility]) - 01/30/2017 1:10 PM CORPORATE LIBRARIAN Performed at: [address] [place] [address] [phone] Investigation Division Sergeant: Hermelindo Rojo MD, Phone: [phone] Telma Jansen MD LAB - CHEMISTRY KATIA SHER Performing Organization Address [facility]/ZIP Co de Phone Number [facility] ([facility]) * GIARDIA SCREEN DFA (01/26/2017 1:15 PM CORPORATE LIBRARIAN) Giardia Antigen Screen No Giardia Lamblia Cysts seen. Negative [facility] Stool specimen (specimen) STOOL SPECIMEN / Unknown 01/26/2017 1:15 PM CORPORATE LIBRARIAN 01/26/2017 1:22 PM CORPORATE LIBRARIAN Narrative [facility] - 01/29/2017 1:05 PM CORPORATE LIBRARIAN Specimen Type->Stool Telma Jansen MD LAB - MICROBIOLOGY O RDERABLES Performing Organization Address City/[facility]/ZIP Co de Phone Number [address] [phone] * CULTURE STOOL+ E COLI SHIGA-LIKE TOXIN (01/26/2017 1:15 PM CORPORATE LIBRARIAN) Culture Feces No Salmonella, Shigella, Yersinia, Campylobacter or Escherichia Coli 0157:H7 isolated. Negative for Shiga Toxin by Immunoassay. [facility] Stool specimen (specimen) STOOL SPECIMEN / Unknown 01/26/2017 1:15 PM CORPORATE LIBRARIAN 01/26/2017 1:22 PM CORPORATE LIBRARIAN Narrative [facility] - 01/29/2017 10:39 AM CORPORATE LIBRARIAN Specimen Type->Stool Telma Jansen MD LAB - MICROBIOLOGY O FELICITY Performing Organization Address [facility] Co de Phone Number [address] [phone] * CLOSTRIDIUM DIFFICILE [facility] + TOXIN A+B (01/26/2017 1:15 PM CORPORATE LIBRARIAN) C difficile Antigen Negative Negative [facility] C difficile Toxin Negative Negative [facility] Stool specimen (specimen) STOOL SPECIMEN / Unknown 01/26/2017 1:15 PM CORPORATE LIBRARIAN 01/26/2017 1:22 PM CORPORATE LIBRARIAN Narrative [facility] - 01/26/2017 10:41 PM CORPORATE LIBRARIAN Specimen Type->Stool Telma Jansen MD LAB - MICROBIOLOGY O FELICITY Performing Organization Address [facility] de Phone Number [address] [phone] * PROTEIN ELECTROPHORESIS URINE RANDOM (01/26/2017 10:38 AM CORPORATE LIBRARIAN) Interpretation Urine PE See Comment Normal Pattern [facility] Comment: Urine protein electrophoresis shows a prominent band corresponding to albumin with small amounts of other nonspecific proteinuria. No monoclonal immunoglobulins detected. Non-secretory myeloma (NSM) cannot be excluded on the basis of this result. Measurements of serum free kappa and lambda immunoglobulin light chains can identify up to 70% of patients with NSM. Alyssa Colbert, PhD Protein Urine 26 Not Established mg/dL [facility] Urine specimen (specimen) URINE SPECIMEN OBTAINED BY CLEAN CATCH PROCEDURE / Unknown 01/26/2017 10:38 AM CORPORATE LIBRARIAN 01/26/2017 10:38 AM CORPORATE LIBRARIAN Telma Jansen MD LAB - URINE CHEMISTR Y ORDERABLES Performing Organization Address [facility] [place] [address], [facility] [phone] * EOSINOPHIL URINE SMEAR (01/26/2017 10:35 AM CORPORATE LIBRARIAN) Only the most recent of2 resultswithin the time period is included. Eosin Stain Urine None None [facility] Urine specimen (specimen) 01/26/2017 10:35 AM CORPORATE LIBRARIAN 01/26/2017 10:35 AM CORPORATE LIBRARIAN Telma Jansen MD LAB - URINE CHEMISTR Y ORDERABLES Performing Organization Address City/State/[facility] Co de Phone Number [address] [phone] * (ABNORMAL) HEMOGLOBIN A1C (01/26/2017 6:22 AM CORPORATE LIBRARIAN) Only the most recent of2 resultswithin the time period is included. Hemoglobin A1c 6.4(H) 4.4 - 6.3 % [facility] Estimated Average Glucose 137 mg/dL [facility] Comment: HbA1c Interpretation: Treatment target values recommended by ADA and other clinical organizations should be used to evaluate metabolic control in patients. Treatment Target Values: Normal : < 5.7% Pre-diabetes: 5.7-6.4% Diabetes: Equal to or greater than 6.5% Reference: [place] [employer] Standards of Care in Diabetes -2014 In patients 70 years and older consider HbA1c target range of 7.0-7.5% Reference: Diabetes Mellitus in Older People: Position Statement on behalf of the International Association of Gerontology and Geriatrics (IAGG), the Diabetes Working Constitution Party for Older People (EDWPOP), and the International Task Force of Experts in Diabetes. Juan Welsh, et al. J [employer]. 2012 Test results diagnostic [...] BLOOD SPECIMEN / Unknown 01/26/2017 6:22 AM CORPORATE LIBRARIAN 01/26/2017 6:25 AM CORPORATE LIBRARIAN Telma Jansen MD LAB - CHEMISTRY KATIA SHER Performing Organization Address [facility] de Phone Number [address] [phone] * (ABNORMAL) HEPARIN PLATELET INDUCED ANTIBODY (01/26/2017 6:22 AM CORPORATE LIBRARIAN) Interpretation Heparin Platelet Antibody Positive (A) Negative [facility] Comment: Heparin induced thrombocytopenia (HIT) is unlikely in the presence of a negative HIT antibody test result by AMAURY and low pretest probability for type II HIT (scoring system of [place]). It is suggested to verify positive HIT AMAURY antibody test results by HIT Antibody Serotonin Release Assay. HIT AMAURY Patient OD 0.652(H) <0.400 OD [facility] Blood specimen (specimen) BLOOD SPECIMEN / Unknown 01/26/2017 6:22 AM CORPORATE LIBRARIAN 01/26/2017 8:05 AM CORPORATE LIBRARIAN Telma Jansen MD LAB - CHEMISTRY KATIA SHER Performing Organization Address [facility] de Phone Number [address] [phone] * PROTEIN URINE RANDOM QUANTITATIVE (01/24/2017 9:36 AM CORPORATE LIBRARIAN) Protein Urine 14 Not Established mg/dL [facility] Urine specimen (specimen) URINE SPECIMEN OBTAINED BY CLEAN CATCH PROCEDURE / Unknown 01/24/2017 9:36 AM CORPORATE LIBRARIAN 01/24/2017 10:13 AM CORPORATE LIBRARIAN Telma Jansen MD LAB - URINE CHEMISTR Y ORDERABLES Performing Organization Address [facility] Co de Phone Number [address] [phone] * SODIUM URINE RANDOM (01/24/2017 9:36 AM CORPORATE LIBRARIAN) Sodium Urine 49 Not Established mmol/L [facility] Urine specimen (specimen) URINE SPECIMEN OBTAINED BY CLEAN CATCH PROCEDURE / Unknown 01/24/2017 9:36 AM CORPORATE LIBRARIAN 01/24/2017 10:13 AM CORPORATE LIBRARIAN Telma Jansen MD LAB - URINE CHEMISTR Y ORDERABLES Performing Organization Address [facility] Co de Phone Number [address] [phone] * UREA NITROGEN URINE RANDOM (01/24/2017 9:36 AM CORPORATE LIBRARIAN) Urea Nitrogen Random Urine 978 Not Established mg/dL [facility] Urine specimen (specimen) URINE SPECIMEN OBTAINED BY CLEAN CATCH PROCEDURE / Unknown 01/24/2017 9:36 AM CORPORATE LIBRARIAN 01/24/2017 10:13 AM CORPORATE LIBRARIAN Telma Jansen MD LAB - URINE CHEMISTR Y ORDERABLES Performing Organization Address [facility] Co de Phone Number [address] [phone] * CREATININE URINE RANDOM (01/24/2017 9:36 AM CORPORATE LIBRARIAN) Creatinine Urine 159 Not Established mg/dL [facility] Comment:Result obtained by rufino perdomo. Urine specimen (specimen) URINE SPECIMEN OBTAINED BY CLEAN CATCH PROCEDURE / Unknown 01/24/2017 9:36 AM CORPORATE LIBRARIAN 01/24/2017 10:13 AM CORPORATE LIBRARIAN Telma Jansen MD LAB - URINE CHEMISTR Y ORDERABLES Performing Organization Address [facility] Co de Phone Number [address] [phone] * US RETROPERITONEAL COMPLETE (01/23/2017 2:47 PM CORPORATE LIBRARIAN) Anatomical Region Laterality Modality Abdomen Other Impressions 01/23/2017 5:44 PM CORPORATE LIBRARIAN IMPRESSION: Normal renal size. No evidence of nephrolithiasis, hydronephrosis, or solid renal mass. Dictated by Marquez Callahan MD (vice president commercial bank). This report was approved by Ronn Callahan on 01/23/2017 3:17 PM . I, Dr. Yolanda MCCARTHY M.D. have personally reviewed and interpreted this examination/study. This report was electronically signed by Yolanda MCCARTHY M.D. on 01/23/2017 5:44 PM . Narrative 01/23/2017 5:44 PM CORPORATE LIBRARIAN EXAMINATION: Complete retroperitoneal sonogram HISTORY: Acute kidney [...] renal mass. Dictated by Marquez Callahan MD (vice president commercial bank). This report was approved by Ronn Callahan on 01/23/2017 3:[address] Yolanda Britt M.D. have personally reviewed and interpreted thisexamination/study. This report was electronically signed by Yolanda MCCARTHY M.D. on01/23/2017 5:44 PM . Telma Jansen MD US ORDERABLES * HAPTOGLOBIN (01/23/2017 10:19 AM CORPORATE LIBRARIAN) Only the most recent of2 resultswithin the time period is included. Haptoglobin 181 14 - 258 mg/dL [facility] Blood specimen (specimen) BLOOD SPECIMEN / Unknown 01/23/2017 10:19 AM CORPORATE LIBRARIAN 01/23/2017 10:24 AM CORPORATE LIBRARIAN Alexa Garcia WIRE SPINNER-CARTON GLUING MACHINE OPERATOR LAB - CHEMISTR Y ORDERABLES Performing Organization Address City/[facility]/ZIP Co de Phone Number [address] [phone] * (ABNORMAL) LDH BLOOD (01/23/2017 10:19 AM CORPORATE LIBRARIAN) [facility] LDH Total 275(H) 125 - 243 Units/L [facility] Blood specimen (specimen) BLOOD SPECIMEN / Unknown 01/23/2017 10:19 AM CORPORATE LIBRARIAN 01/23/2017 10:24 AM CORPORATE LIBRARIAN Alexa Garcia WIRE SPINNERFilmmortalCARTON GLUING MACHINE OPERATOR LAB - CHEMISTR Y ORDERABLES Performing Organization Address [facility] Co de Phone Number [address] [phone] * (ABNORMAL) D-DIMER (01/23/2017 8:46 AM CORPORATE LIBRARIAN) [facility] D-Dimer Quantitative 1.14(H) <=0.50 mcg/mL FEU [facility] Comment: In the absence of clinical symptoms, a value less than or equal to 0.5 mcg/mL FEU significantly decreases the probability of PE/DVT (negative predictive value >95%). 1 mcg/mL FEU = 1 Fibrinogen Equivalent Unit (approximates 0.5 mcg/ml of D- Dimer). ISTH DIAGNOSTIC SCORING SYSTEM FOR DIC Score 0 1 2 3 Platelet Count(x10^3/uL) > 100 < 100 < 50 N/A PT Prolongation above upper limit of normal 0-3 3-6 > 6 N/A range (seconds) Fibrinogen (mg/dL) > 100 < 100 N/A N/A D-Dimer (mcg/mL FEU) < 0.50 N/A 0.50-5.0 > 5 Calculate Cumulative Score: > or = 5 :compatible with overt DIC < 5 :suggestive for non-overt DIC N/A = Non applicable Reference: Br. J. Haematol. 145:24-33,2009. Blood specimen (specimen) BLOOD SPECIMEN / Unknown 01/23/2017 8:46 AM CORPORATE LIBRARIAN 01/23/2017 8:57 AM CORPORATE LIBRARIAN Alexa Garcia WIRE SPINNER-CARTON GLUING MACHINE OPERATOR LAB - COAGULAT ION ORDERABLES [address] [phone] * (ABNORMAL) FIBRINOGEN ACTIVITY (01/23/2017 8:46 AM CORPORATE LIBRARIAN) Fibrinogen Clauss 541(H) 200 - 400 mg/dL [facility] Blood specimen (specimen) BLOOD SPECIMEN / Unknown 01/23/2017 8:46 AM CORPORATE LIBRARIAN 01/23/2017 8:57 AM CORPORATE LIBRARIAN Alexa [facility] - COAGULAT ION ORDERABLES Performing Organization Address [facility] Co de Phone Number [address] [phone] * (ABNORMAL) C-REACTIVE PROTEIN (01/23/2017 8:46 AM CORPORATE LIBRARIAN) [facility] C-Reactive Protein 3.9(H) <=0.5 mg/dL [facility] Blood specimen (specimen) BLOOD SPECIMEN / Unknown 01/23/2017 8:46 AM CORPORATE LIBRARIAN 01/23/2017 8:57 AM CORPORATE LIBRARIAN Alexa Garcia [facility] LAB - CHEMISTR Y ORDERABLES Performing Organization Address [facility] Number [address] [phone] * (ABNORMAL) OCCULT BLOOD FECES (01/23/2017 8:37 AM CORPORATE LIBRARIAN) [facility] Occult Blood Positive(A ) Negative [facility] Comment:This is a corrected result. Previous result was Negative on 01/23/2017 at 1031 CORPORATE LIBRARIAN Stool specimen (specimen) (Per rectum) 01/23/2017 8:37 AM CORPORATE LIBRARIAN 01/23/2017 8:37 AM CORPORATE LIBRARIAN Narrative [facility] - 01/23/2017 10:48 AM CORPORATE LIBRARIAN Sample was plated too thick causing a false negative. Replating the sample gave a positive result. Alexa ALEXANDER LAB - BODY FLU ID ORDERABLES Performing Organization Address [facility] Co de Phone Number [address] [phone] * (ABNORMAL) RETIC COUNT (01/23/2017 6:14 AM CORPORATE LIBRARIAN) Only the most recent of4 resultswithin the time period is included. [facility] Reticulocyte % 0.1(L) 0.4 - 2.5 % [facility] Reticulocyte Absolute 0.00(L) 0.02 - 0.13 10 6/uL [facility] Blood specimen (specimen) BLOOD SPECIMEN / Unknown 01/23/2017 6:14 AM CORPORATE LIBRARIAN 01/23/2017 6:20 AM CORPORATE LIBRARIAN Alexa Garcia WIRE SPINNER-CARTON GLUING MACHINE OPERATOR LAB - HEMATOLO GY ORDERABLES Performing Organization Address City/State/[facility] Co de Phone Number [address] [phone] * XR CHEST 2VW (01/22/2017 3:47 PM CORPORATE LIBRARIAN) Only the most recent of7 resultswithin the time period is included. Anatomical Region Laterality Modality Chest Other Impressions 01/23/2017 5:40 PM CORPORATE LIBRARIAN IMPRESSION: A cardiac pacemaker superimposes the left [...] is noted. Dictated by Enid Reyna MD (vice president commercial [employer]). This report was approved by Enid Reyna M.D. on 01/23/2017 12:49 PM . I, Dr. SANDEEP SILVEIRA M.D. have personally reviewed and interpreted this examination/study. This report was electronically signed by SANDEEP SILVEIRA M.D. on 01/23/2017 5:40 PM . Narrative 01/23/2017 5:40 PM CORPORATE LIBRARIAN EXAMINATION: XR CHEST PA AND LATERAL HISTORY: [...] is noted. Dictated by Enid Reyna MD (vice president commercial bank). This report was approved by Enid Reyna M.D. on 01/23/2017 12:[address] SANDEEP Britt M.D. have personally reviewed and interpreted thisexamination/study. This report was electronically signed by SANDEEP SILVEIRA M.D. on 01/23/20175:40 PM . Alexa Garcia WIRE SPINNER-CARTON GLUING MACHINE OPERATOR DIAGNOSTIC SARAN GING ORDERABLES * XR FOOT RIGHT 3VW OR MORE (01/22/2017 3:45 PM CORPORATE LIBRARIAN) Anatomical Region Laterality Modality Ankle / Foot Other Impressions 02/04/2017 5:44 AM CDT IMPRESSION: No acute fracture or dislocation identified. No radiographic evidence of osteomyelitis. If there is persistent concern for osteomyelitis or soft tissue infection, MRI of the foot is recommended. Dictated by Leonard Feliz MD (vice president commercial bank). This report was approved by Leonard Feliz M.D. on 01/23/2017 9:[address] VINCENT Britt M.D. have personally reviewed and interpreted this examination/study. This report was electronically signed by VINCENT MARTIN M.D. on 02/04/2017 5:44 AM . Narrative 02/04/2017 5:44 [...] foot isrecommended. Dictated by Leonard Feliz MD (vice president commercial bank). This report was approved by Leonard Feliz M.D. on 01/23/2017 9:06 AM. I, Dr. VINCENT MARTIN M.D. have personally reviewed and interpreted thisexamination/study. This report was electronically signed by VINCENT MARTIN M.D. on 02/04/20175:44 AM . Alexa Garcia APRN-[facility] DIAGNOSTIC SARAN GING ORDERABLES * (ABNORMAL) VITAMIN D 1,25 DIHYDROXY (01/22/2017 2:55 PM CORPORATE LIBRARIAN) Pathologist [facility] Calcitriol (1,25 di-OH Vit D) 12.5(L) 19.9 - 79.3 pg/mL [facility] ([employer]) Blood specimen (specimen) BLOOD SPECIMEN / Unknown 01/22/2017 2:55 PM CORPORATE LIBRARIAN 01/22/2017 3:22 PM CORPORATE LIBRARIAN Narrative [facility] ([place]) - 01/24/2017 1:10 PM CORPORATE LIBRARIAN Performed at: [address] [place] [address] [phone] Investigation Division Sergeant: Hermelindo Rojo MD, Phone: [phone] Alexa Garcia [facility] - CHEMISTR Y ORDERABLES [facility] BR[facility]) * (ABNORMAL) RBC MORPHOLOGY (01/22/2017 2:55 PM CORPORATE LIBRARIAN) Only the most recent of2 resultswithin the time period is included. Anisocytosis 1+(A) None [facility] Microcytes 1+(A) None [facility] Schistocytes Occasiona l(A) None [facility] Ovalocytes 1+(A) None [facility] Tear Drop Cells 1+(A) None [facility] Blood specimen (specimen) BLOOD SPECIMEN / Unknown 01/22/2017 2:55 PM CORPORATE LIBRARIAN 01/22/2017 3:19 PM CORPORATE LIBRARIAN Alexa Garcia WIRE SPINNER-CARTON GLUING MACHINE OPERATOR LAB - HEMATOLO GY ORDERABLES Performing Organization Address City/State/[facility] Co de Phone Number [address] [phone] * (ABNORMAL) COMPREHENSIVE METABOLIC PANEL (01/22/2017 2:55 PM CORPORATE LIBRARIAN) Only the most recent of11 resultswithin the time period is included. BUN 31(H) 7 - 26 mg/dL [facility] Creatinine 1.5(H) 0.6 - 1.2 mg/dL [facility] Sodium 140 136 - 145 mmol/L [facility] Potassium 3.9 3.5 - 4.5 mmol/L [facility] Chloride 104 98 - 107 mmol/L [facility] CO2 22 22 - 29 mmol/L [facility] Glucose 112 70 - 115 mg/dL [facility] Calcium 10.3(H) 8.4 - 10.2 mg/dL [facility] Protein Total 7.1 6.0 - 8.3 g/dL [facility] Albumin 3.3(L) 3.4 - 5.0 g/dL [facility] Bilirubin Total 0.8 0.2 - 1.2 mg/dL [facility] Alkaline Phosphatase 62 40 - 150 Units/L [facility] ALT 12 0 - 55 Units/L [facility] AST 18 5 - 34 Units/L [facility] Anion Gap 18 8 - 18 [facility] BUN/Creatinine Ratio 21 7 - 23 [facility] Osmolality Calculated 297 270 - 300 mOsm/kg [facility] Albumin/Globulin Ratio 0.9(L) 1.1 - 2.3 [facility] eGFR 34(L) >60 mL/min/1.7 3 m2 [facility] Blood specimen (specimen) BLOOD SPECIMEN / Unknown 01/22/2017 2:55 PM CORPORATE LIBRARIAN 01/22/2017 3:22 PM CORPORATE LIBRARIAN Alexa Schuljose f GALLEGO-CARTON GLUING MACHINE OPERATOR LAB - CHEMISTR Y ORDERABLES Performing Organization Address City/[facility]/ZIP Co de Phone Number [address] [phone] * TSH (01/22/2017 2:55 PM CORPORATE LIBRARIAN) Only the most recent of5 resultswithin the time period is included. [facility] TSH 2.923 0.350 - 4.940 uIU/mL [facility] Blood specimen (specimen) BLOOD SPECIMEN / Unknown 01/22/2017 2:55 PM CORPORATE LIBRARIAN 01/22/2017 3:22 PM CORPORATE LIBRARIAN Alexa Schuljose f GALLE[employer]CARTON GLUING MACHINE OPERATOR LAB - CHEMISTR Y ORDERABLES Performing Organization Address [facility] Co de Phone Number [address] [phone] * ECHO W DOPPLER AND COLOR FLOW (01/22/2017 12:00 AM CORPORATE LIBRARIAN) Anatomical Region Laterality Modality Other 01/22/2017 Alexa Schuljose f GALLE[employer]-CARTON GLUING MACHINE OPERATOR ECHOCARDIOGRAP HY RADIANT * EKG 12-LEAD (01/22/2017 12:00 AM CORPORATE LIBRARIAN) Only the most recent of6 resultswithin the time period is included. [facility] EKG [facility] Comment: Exam Date/Time: Jan 22 2017 14:04:49 Test Reason : weakness Blood Pressure : / mmHG Vent. Rate : 067 BPM Atrial Rate : 066 BPM P-R Int : 000 ms QRS Dur : 188 ms QT Int : 514 ms P-R-T Axes : 000 040 135 degrees QTc Int : 543 ms Electronic ventricular pacemaker with Underlying Atrial flutter When compared with ECG of 26-DEC-2016 16:26, No significant change was found Confirmed by Bg Lopez, Keyona ([id number]), multimedia editor HALLIE NARAYANAN ([id number]) on 01/25/2017 12:41:44 PM Referred By: REFERRING NO Confirmed By:Keyona Lopez M.D. 01/22/2017 Alexa Garcia WIRE SPINNER-CARTON GLUING MACHINE OPERATOR ECG ORDERABLES [facility] * LAB HISTORICAL RESULTS-ONBASE (01/05/2017) Only the most recent of5 resultswithin the time period is included. 01/05/2017 Historical Provider MD LAB - CHEMISTRY O RDERABLES [address] * XR CHEST 1VW PORTABLE (12/26/2016 4:32 PM CORPORATE LIBRARIAN) Only the most recent of2 resultswithin the time period is included. Anatomical Region Laterality Modality Chest Other Impressions 12/27/2016 3:49 PM CORPORATE LIBRARIAN IMPRESSION: A pacemaker superimposes the left upper [...] is intact. Dictated by Spencer Nuñez MD (vice president commercial bank). Dr. Yolanda Britt M.D. have personally reviewed and interpreted this examination/study. This report was electronically signed by Yolanda MCCARTHY M.D. on 12/27/2016 3:49 PM . Narrative 12/27/2016 3:49 PM CORPORATE LIBRARIAN EXAMINATION: PX CHEST 1 VW HISTORY: post [...] thorax isintact. Dictated by Spencer Nuñez MD (vice president [employer]). IDr. Yolanda M.D. have personally reviewed and interpreted thisexamination/study. This report was electronically signed by Yolanda MCCARTHY M.D. on12/27/2016 3:49 PM . Telma Jansen MD DIAGNOSTIC IMAGING O RDERABLES * EP REVISION REPOSITION LEAD (12/26/2016 3:47 PM CORPORATE LIBRARIAN) Anatomical Region Laterality Modality Other Narrative 12/26/2016 3:47 PM CORPORATE LIBRARIAN This procedure was performed by a Cardiac Assemblies And Installations Inspector in the EP lab. Please see the Op Note or Procedures Note placed by Electrophysiology. Procedure Note ProviderDwayne MD - 05/03/2018 This procedure was performed by a Cardiac Assemblies And Installations Inspector in the [facility]. Please see the Op Note or Procedures Note placed byElectrophysiology. Telma Jansen MD ELECTROPHYS RADI[facility] * ECHO 2D ONLY WO COLOR OR DOPPLER (12/05/2016 11:01 AM CORPORATE LIBRARIAN) Only the most recent of3 resultswithin the time period is included. Anatomical Region Laterality Modality Other Narrative 12/05/2016 11:01 AM CORPORATE LIBRARIAN [facility] 2-D & M-Mode Echocardiogram Report Color Flow Doppler Report Patients Name: Kay Winn : 1945 Age: 71 y.o. Gender: female Referring Physician: Paramjit Escobar MD [address] [facility] [address] [place] [address] Ordering Physician: Primary Care Physician: Bebo Hansen Date of Test: TAPE#: Lumber Handler: ds Height: 65 Weight: 222 lb BSA: [...] Procedure Note Provider, MD Dwayne - 05/03/2018 [facility] C4 CARDIOLOGY 2-D & M-Mode Echocardiogram Report Color Flow Doppler Report Patients Name: Kay Winn : 1945 Age: 71 y.o. Gender: female Referring Physician: Paramjit Escobar MD [address] [facility] [address] [place] [address] Ordering Physician: Primary Care Physician: Bebo Hansen Date of Test: TAPE#: Lumber Handler: ds Height: 65 Weight: 222 lb BSA: [...] WEAR CARDIAC DEVICE EVAL (11/29/2016 5:51 PM CORPORATE LIBRARIAN) Narrative [facility] - 11/29/2016 5:51 PM CORPORATE LIBRARIAN Interrogation discussed in progress note from today and scanned into media Procedure Note Dwayne Godwin MD - 05/03/2018 Interrogation discussed in progress note from today and scanned intomedia Paramjit Escobar MD PROCEDURE/MINOR SURG ICAL ORDERABLES [facility] * HEMOGLOBIN A1C - POINT OF CARE (HgbA1C) (11/23/2016 11:52 AM CORPORATE LIBRARIAN) Only the most recent of12 resultswithin the time period is included. Hemoglobin A1c POCT 6.4 % QC Verified Yes Blood BLOOD SPECIMEN / Unknown 11/23/2016 11:52 AM CORPORATE LIBRARIAN Bebo Hansen MD LAB - POINT OF CARE ORDERABLES * ENDOSCOPY, COLON, SCREENING (10/30/2016) Provider Unknown GI PROCEDURE ORDERAB LES * ENDOSCOPY, COLON, SCREENING (10/30/2016) Provider Unknown GI PROCEDURE ORDERAB LES * CCL CATH RIGHT HEART (10/24/2016 8:48 AM CORPORATE LIBRARIAN) Anatomical Region Laterality Modality X-Ray Angiograph y Narrative 10/30/2016 11:48 AM CORPORATE LIBRARIAN [facility] Cardiac Catheterization Procedure Note Patient: Kay Winn Age: 71 y.o. Date of : 1945 Date of Admission: 10/24/2016 Procedure Date: 10/24/16 FELLOW / WILD LIFE MANAGER: Fady Gill MD; ludwin Chang MD ATTENDING [...] a timeout was performed to confirm the patient s name, date of , and procedure. Sedation was initiated and the patient was prepped and draped using standard sterile technique. Lidocaine was used for local anesthesia over the access site, after which the vessel was accessed and a sheath was placed using the modified Seldinger technique. Access was uncomplicated. Standard right heart catheterization was performed using a Stowell-Dank catheter. At the conclusion of the procedure, hemostasis was achieved using manual compression after removal of all catheters, wires, and sheaths. COMPLICATIONS: None HEMODYNAMIC FINDINGS: Pressures (mmHg): RA: 18 RV: 70/18 PA: 68/33 (mean of 43) PCWP: 26 with prominent V wave (35 mmHg) Systemic BP from cuff: 120/60 (mean of 80) O2 saturation on room air (%): RA: 61 PA: 59 Arterial: 97 Hemoglobin: 12.9 g/dl CO: 4.5 L/min (RADHA) CI: 2.2 L/min/m2 (RADHA) Transpulmonary gradient: 18 mmHg PVR: 4 Keys units Diastolic pulmonary gradient: 12 mmHg Vasodilator challenge was not performed due to elevated PCWP. DIAGNOSTIC INTERPRETATIONS: 1. Moderate pulmonary hypertension, likely group 2, with component of pulmonary arterial hypertension is also suspected given elevated transpulmonary gradient, pulmonary vascular resistance and diastolic pulmonary gradient. 2. Normal cardiac output. RECOMMENDATIONS AFTER DIAGNOSTIC CATHETERIZATION: 1. Diuresis then and repeat RHC with NO challenge. 2. Continue titration of medications for cardiomyopathy. Néstor Perry MD 10/30/2016 Dr. Perry was present for the entirety of the described procedure. I was present for the entire procedure. Néstor Perry MD 10/30/2016/11:51 AM Procedure Note Néstor Perry MD - 05/03/2018 [facility] Cardiac Catheterization Procedure Note Patient: Kay Winn Age: 71 y.o. Date of : 1945 Date of Admission: 10/24/2016 Procedure Date: 10/24/16 FELLOW / WILD LIFE MANAGER: Fady Gill MD; ludwin Chang MD ATTENDING [...] a timeout was performed to confirm the patient s name, date of , and procedure. Sedation was initiated and thepatient was prepped and draped using standard sterile technique. Lidocaine was used for local anesthesia over theaccess site, after which the vessel was accessed and a sheath was placedusing the modified Seldinger technique. Access was uncomplicated.Standard right heart catheterization was performed using a Stowell-Dank catheter. At the conclusion of the procedure,hemostasis was achieved using manual compression after removal of allcatheters, wires, and sheaths. COMPLICATIONS: None HEMODYNAMIC FINDINGS: Pressures (mmHg): RA: 18 RV: 70/18 PA: 68/33 (mean of 43) PCWP: 26 with prominent V wave (35 mmHg) Systemic BP from cuff: 120/60 (mean of 80) O2 saturation on room air (%): RA: 61 PA: 59 Arterial: 97 Hemoglobin: 12.9 g/dl CO: 4.5 L/min (RADHA) CI: 2.2 L/min/m2 (RADHA) Transpulmonary gradient: 18 mmHg PVR: 4 Keys [...] MD 10/30/2016/11:51 AM Paramjit Escobar MD CARDIAC CATERING STAFF MEMBER RAD IANT * (ABNORMAL) DIFFERENTIAL MANUAL (10/24/2016 7:23 AM CORPORATE LIBRARIAN) WBC (corrected for NRBC) 12.1 10 3/uL [facility] Total Cell Count 100 [facility] Neutrophils Absolute Manual 9.92(H) 1.60 - 7.00 10 3/uL [facility] Comment:(BANDS+SEGS) x WBC = NEUT # (ANC) Lymphocyte Absolute Manual 1.09 0.80 - 2.90 10 3/uL [facility] Monocytes Absolute Manual 0.73(H) 0.14 - 0.66 10 3/uL [facility] Eosinophils Absolute Manual 0.12 0.00 - 0.22 10 3/uL [facility] Band % Manual 29(H) 0 - 10 % [facility] Neutrophil % Manual 53 30 - 60 % [facility] Lymphocyte % Manual 9(L) 20 - 45 % [facility] Monocytes % Manual 6 2 - 10 % [facility] Eosinophils % Manual 1 1 - 6 % [facility] Abnormal % Manual 2(H) 0 % [facility] Platelet Estimate Adequate Adequate [facility] Ovalocytes 1+(A) None [facility] Blood specimen (specimen) BLOOD SPECIMEN / Unknown 10/24/2016 7:23 AM CORPORATE LIBRARIAN 10/24/2016 7:26 AM CORPORATE LIBRARIAN Néstor Perry MD LAB - HEMATOLOGY OR DERABLES [facility] [address] [phone] * ENDOSCOPY, COLON, SCREENING (10/23/2016) Provider Unknown GI PROCEDURE ORDERAB LES * MAMMO SCREENING DIGITAL IMAGE BILAT (08/02/2016) Only the most recent of2 resultswithin the time period is included. Anatomical Region Laterality Modality Breast Bilateral Mammography Provider Unknown MAMMO ORDERABLES * PROC IMPLANT WEAR CARDIAC DEVICE EVAL (07/26/2016 5:23 PM CDT) Narrative [facility] - 07/26/2016 5:23 PM CDT Pacemaker interrogation discussed in progress note from today. Full interrogation scanned into media Procedure Note ProviderDwayne MD - 05/03/2018 Pacemaker interrogation discussed in progress note from today. Fullinterrogation scanned into media Paramjit Escobar MD PROCEDURE/MINOR SURG ICAL ORDERABLES Performing Organization Address City/[facility]/ZIP Co de Phone Number [facility] * (ABNORMAL) MICROALB/CREAT RATIO URINE RANDOM PANEL (07/24/2016 7:53 AM CDT) Only the most recent of5 resultswithin the time period is included. Creatinine Urine 73 20 - 320 mg/dL [facility] Comment: Test Performed at: [place] [address] HERMELINDO ROJAS DO,MPH Microalbumin Urine 2.8 mg/dL [facility] Comment: Reference Range Not established Test Performed at: [place] [address] HERMELINDO ROJAS DO,MPH Microalbumin/Creat inine Ratio 38(H) [...] URINE CHEMISTR Y ORDERABLES Performing Organization Address City/[facility]/ZIP Co de Phone Number [facility] [address] [place] [address] * CARDIAC RHYTHM STRIP ORDER (07/10/2016 9:14 [...] - 106 mg/dL 07/10/2016 6:18 AM CDT [facility] Blood BLOOD SPECIMEN / Unknown 07/09/2016 12:00 PM CDT 07/10/2016 6:18 AM CDT Bebo Hansen MD LAB - POINT OF CARE ORDERABLES [facility] [address] [place] [address] * (ABNORMAL) RENAL FUNCTION PANEL (07/09/2016 4:21 AM CDT) Glucose 154(H) 74 - 106 mg/dL 07/09/2016 5:26 AM CDT [facility] Sodium 142 136 - 145 mmol/L 07/09/2016 5:26 AM CDT [facility] Potassium 4.0 3.5 - 5.1 mmol/L 07/09/2016 5:26 AM T [facility] Chloride 109(H) 98 - 107 mmol/L 07/09/2016 5:26 AM CDT [facility] CO2 26 22 - 31 mmol/L 07/09/2016 5:26 AM CDT [facility] Calcium 8.9 8.5 - 10.1 mg/dL 07/09/2016 5:26 AM T [facility] Anion Gap 7 5 - 20 mmol/L 07/09/2016 5:26 AM CDT [facility] BUN 21 7 - 21 mg/dL 07/09/2016 5:26 AM CDT [facility] Creatinine 1.30 0.50 - 1.30 mg/dL 07/09/2016 5:26 AM CDT [facility] Albumin 3.1(L) 3.4 - 5.0 gm/dL 07/09/2016 5:26 AM CDT [facility] Phosphorus 3.2 2.5 - 4.9 mg/dL 07/09/2016 5:26 AM CDT [facility] eGFR by MDRD 40 mL/min/1.7 3m2 07/09/2016 5:26 AM CDT [facility] eGFR by MDRD 49 mL/min/1.7 3m2 07/09/2016 5:26 AM CDT [facility] Blood BLOOD SPECIMEN / Unknown Lab Venipuncture / Unknown 07/09/2016 4:21 AM CDT 07/09/2016 4:57 AM CDT Jocelin Mccurdy MD LAB - CHEMISTRY OR DERABLES Performing Organization Address [facility] Co de Phone Number [facility] [address] [place] [phone] * MAGNESIUM BLOOD (07/09/2016 4:21 AM CDT) Only the most recent of3 resultswithin the time period is included. [facility] Magnesium 2.1 1.6 - 2.6 mg/dL 07/09/2016 5:26 AM CDT [facility] Blood BLOOD SPECIMEN / Unknown Lab Venipuncture / Unknown 07/09/2016 4:21 AM CDT 07/09/2016 4:57 AM CDT Jocelin Mccurdy MD LAB - CHEMISTRY OR DERABLES Performing Organization Address [facility] de Phone Number [facility] [address] [place] [address] * RESPIRATORY PATHOGEN PANEL BY PCR (07/08/2016 7:02 AM CDT) Pathologist [facility] Adenovirus PCR Not detected Not detected, Invalid, Indeterminate 07/08/2016 2:[address] [facility] Human Metapneumovirus PCR Not detected Not detected, Invalid, Indeterminate 07/08/2016 2:[address] [facility] Human Rhinovirus/Entero virus PCR Not detected Not detected, Invalid, Indeterminate 07/08/2016 2:[address] [facility] Influenza A Non Subtyped PCR Not detected Not detected, Invalid, Indeterminate 07/08/2016 2:[address] [facility] Influenza A H1 PCR Not detected Not detected, Invalid, Indeterminate 07/08/2016 2:[address] [facility] Influenza A H3 PCR Not detected Not detected, Invalid, Indeterminate 07/08/2016 2:11 PM CDT [facility] Influenza A H1 2009 PCR Not detected Not detected, Invalid, Indeterminate 07/08/2016 2:11 PM CDT [facility] Influenza B PCR Not detected Not detected, Invalid, Indeterminate 07/08/2016 2:11 PM CDT [facility] Mycoplasma pneumoniae PCR Not detected Not detected, Invalid, Indeterminate 07/08/2016 2:11 PM T [facility] Parainfluenza Virus 1 PCR Not detected Not detected, Invalid, Indeterminate 07/08/2016 2:11 PM CDT [facility] Parainfluenza Virus 2 PCR Not detected Not detected, Invalid, Indeterminate 07/08/2016 2:11 PM T [facility] Parainfluenza Virus 3 PCR Not detected Not detected, Invalid, Indeterminate 07/08/2016 2:11 PM T [facility] Parainfluenza Virus 4 PCR Not detected Not detected, Invalid, Indeterminate 07/08/2016 2:11 PM T [facility] Respiratory Syncytial Virus PCR Not detected Not detected, Invalid, Indeterminate 07/08/2016 2:11 PM T [facility] Bordetella pertussis PCR Not detected Not detected, Invalid 07/08/2016 2:11 PM T [facility] Microbiology NASOPHARYNGEAL SWAB / Unknown Collection / Unknown 07/08/2016 7:02 AM CDT 07/08/2016 7:08 AM CDT Mecca Butler MD LAB - MICROBIOLOGY O RDERABLES [facility] [address] [place] [address], [facility] [phone] * TROPONIN I (07/08/2016 4:20 AM CDT) Only the most recent of7 resultswithin the time period is included. [facility] Troponin I 0.016 0.000 - 0.049 ng/mL 07/08/2016 5:30 AM CDT [facility] Blood BLOOD SPECIMEN / Unknown Lab Venipuncture / Unknown 07/08/2016 4:20 AM CDT 07/08/2016 5:01 AM CDT Narrative [facility] - 07/08/2016 5:30 AM CDT [...] - CHEMISTRY OR DERABLES Performing Organization Address [facility] Co de Phone Number [facility] [address] [place] [phone] * FOLATE (07/08/2016 4:20 AM CDT) [facility] Folate 12.7 3.1 - 17.5 ng/mL 07/08/2016 5:59 AM CDT [facility] Blood BLOOD SPECIMEN / Unknown Lab Venipuncture / Unknown 07/08/2016 4:20 AM CDT 07/08/2016 5:01 AM CDT Jocelin Mccurdy MD LAB - CHEMISTRY OR DERABLES Performing Organization Address [facility] de Phone Number [facility] [address] [place] [phone] * (ABNORMAL) VITAMIN B12 (07/08/2016 4:20 AM CDT) Pathologist [facility] Vitamin B12 1,501(H) 211 - 911 pg/mL 07/08/2016 5:59 AM CDT [facility] Blood BLOOD SPECIMEN / Unknown Lab Venipuncture / Unknown 07/08/2016 4:20 AM CDT 07/08/2016 5:01 AM CDT Jocelin Mccurdy MD LAB - CHEMISTRY OR DERABLES Performing Organization Address [facility] Co de Phone Number [facility] [address] [place] [phone] * CT ANGIO NECK HEAD W WO [...] CT angiography of the cervical carotids and [place] with contrast History: Dizziness Findings: CT angiography of the cervical carotids and [place] was performed following the uneventful [...] CT angiography of the cervical carotids and [place] with contrast History: Dizziness Findings: CT angiography of the cervical carotids and [place] was performed following the uneventful [...] 848.0(H) <300.0 pg/mL 07/07/2016 7:46 PM CDT [facility] Blood BLOOD SPECIMEN / Unknown 07/07/2016 4:13 PM CDT 07/07/2016 7:23 PM CDT Narrative [facility] - 07/07/2016 7:46 PM CDT NT-proBNP Patient Age Acute HF Unlikely Acute HF Likely <50 years <300 pg/mL >450 pg/mL 50-75 years <300 pg/mL >900 pg/mL >75 years <300 pg/mL >1800 pg/mL Reference: MICHAEL Caal et al. [...] heart disease, and atrial fibrillation. Shaniqua Gan APRN-CARTON GLUING MACHINE OPERATOR LAB - CHEMISTRY ORDERABLES Performing Organization Address [facility] Co de Phone Number [facility] [address] [place], [place] [phone] * PTT (07/07/2016 1:23 PM CDT) Pathologist [facility] PTT 28.4 21.0 - 32.0 sec 07/07/2016 1:43 PM CDT [facility] Blood BLOOD SPECIMEN / Unknown Venipuncture / Unknown 07/07/2016 1:23 PM CDT 07/07/2016 1:25 PM CDT Narrative [facility] - 07/07/2016 1:43 PM CDT Heparin Therapeutic Range for PTT: 47.7 - 68.6 seconds. Hallie Velasquez MD LAB - COAGULATION OR DERABLES Performing Organization Address [facility] Co de Phone Number [facility] [address] [place], [place] [phone] * DIABETES EYE EXAM (03/13/2016) Only the most recent of2 resultswithin the time period is included. Scanned Document HEALTH MAINTENANCE * (ABNORMAL) URINALYSIS MICROSCOPIC ONLY W/REFLEX CULTURE (09/18/2015 11:07 AM CDT) Epithelial Cell UA 10-20(A) 0-2, 2-5 09/18/2015 11:38 AM CDT [facility] Hyaline Casts 0-2 0 - 2 # /lpf 09/18/2015 11:38 AM CDT [facility] Urine URINE SPECIMEN OBTAINED BY CLEAN CATCH PROCEDURE / Unknown Collection / Unknown 09/18/2015 11:07 AM CDT 09/18/2015 11:10 AM CDT Matt Estrada MD LAB - URINALYSIS ORD ERABLES Performing Organization Address City/[facility] Co de Phone Number [facility] [address] [place] [address] * B-TYPE NATRIURETIC PEPTIDE (09/18/2015 9:57 AM CDT) Only the most recent of3 resultswithin the time period is included. Pathologist [facility] BNP 94 0 - 100 pg/mL 09/18/2015 10:51 AM CDT [facility] Blood BLOOD SPECIMEN WITH EDTA / Unknown Venipuncture / Unknown 09/18/2015 9:57 AM CDT 09/18/2015 10:01 AM CDT Narrative [facility] - 09/18/2015 10:51 AM CDT A cutoff of 100 pg/mL has been demonstrated to provide the maximal combination of sensitivity, specificity, and negative predictive value for contributing to the diagnosis of congestive heart failure (CHF) only. A B-Type Natriuretic Peptide (BNP) value greater than or equal to 100 pg/mL is consistent with a diagnosis of CHF in the appropriate clinical setting. False positive results are more common in females greater than 75 years of age. Blood concentrations of natriuretic peptides may also be elevated in patients with myocardial infarction and in patients who are candidates for or are undergoing renal dialysis. Matt Estrada MD LAB - CHEMISTRY ORDE RABKEISHA Performing Organization Address City/[facility]/ZIP Co de Phone Number [facility] [address] [place] [phone] * (ABNORMAL) URIC ACID BLOOD (06/29/2015 7:56 AM CDT) Only the most recent of3 resultswithin the time period is included. Pathologist [facility] Uric Acid 10.3(H) 2.5 - 7.0 mg/dL [facility] Comment: Therapeutic target for gout patients: <6.0 mg/dL Test Performed at: [facility] (Closed) [employer] [phone] HERMELINDO ROJAS DO,MPH Blood specimen (specimen) BLOOD SPECIMEN / Unknown 06/29/2015 7:56 AM CDT 06/29/2015 7:57 AM CDT Bebo Hansen MD LAB - CHEMISTRY KATIA SHER Performing Organization Address [facility] Co de Phone Number [facility] [address] [place] [address] * C-REACTIVE PROTEIN SENSITIVE (06/29/2015 7:56 AM CDT) [facility] C-Reactive Protein High Sensitivity 1.3 mg/L [facility] Comment: Average relative cardiovascular risk according to AHA/CDC guidelines. For ages >17 Years: hs-CRP mg/L Risk According to AHA/CDC Guidelines <1.0 Lower relative cardiovascular risk. 1.0-3.0 Average relative cardiovascular risk. 3.1-10.0 Higher relative cardiovascular risk. Consider retesting in 1 to 2 weeks to exclude a benign transient elevation in the baseline CRP value secondary to infection or inflammation. >10.0 Persistent elevation, upon retesting, may be associated with infection and inflammation. Test Performed at: [facility] [employer] [phone] HERMELINDO ROJAS DO,MPH Blood specimen (specimen) BLOOD SPECIMEN / Unknown 06/29/2015 7:56 AM CDT 06/29/2015 7:57 AM CDT Bebo Hansen MD LAB - CHEMISTRY KATIA SHER Performing Organization Address [facility] Co de Phone Number [facility] [address] [place] [address] * ADRIANA BLOOD SCREEN W/REFLEX TITER (06/29/2015 7:56 AM CDT) Only the most recent of2 resultswithin the time period is included. [facility] ADRIANA Screen NEGATIVE NEGATIVE [facility] Comment: Test Performed at: [place] [address] HERMELINDO ROJAS DO,MPH Blood specimen (specimen) BLOOD SPECIMEN / Unknown 06/29/2015 7:56 AM CDT 06/29/2015 7:57 AM CDT Bebo Hansen MD LAB - CHEMISTRY KATIA SHER Performing Organization Address City/[facility]/ZIP Co de Phone Number [address] [address] * SED RATE WESTERGREN (06/29/2015 7:56 AM CDT) Only the most recent of3 resultswithin the time period is included. Erythrocyte Sedimentation Rate Westergren 11 < OR = 30 mm/h [facility] Comment: Test Performed at: [facility] [place] - [address] [address] MARTINA GARRETT MD Blood specimen (specimen) BLOOD SPECIMEN / Unknown 06/29/2015 7:56 AM CDT 06/29/2015 7:57 AM CDT Bebo Hansen MD LAB - HEMATOLOGY ORD ERABLES Performing Organization Address [facility]/ZIP [place] [address] * (ABNORMAL) CK BLOOD (06/29/2015 7:56 AM CDT) Only the most recent of4 resultswithin the time period is included. CK 21(L) 29 - 143 U/L [facility] Comment: Test Performed at: [facility] [place] - [address] [facility] [address] [place] [address] HERMELINDO ROJAS DO,MPH Blood specimen (specimen) BLOOD SPECIMEN / Unknown 06/29/2015 7:56 AM CDT 06/29/2015 7:57 AM CDT Bebo Hansen MD LAB - CHEMISTRY KATIA SHER Performing Organization Address City/[facility]/ZIP Co de Phone Number [address] [address] * (ABNORMAL) LIPID PROFILE (06/29/2015 7:56 AM CDT) Only the most recent of3 resultswithin the time period is included. Cholesterol 115(L) 125 - 200 mg/dL [facility] Comment: Test Performed at: [facility] [place] [address] [address] [place] [address] HERMELINDO ROJAS DO,MPH HDL Cholesterol 30(L) > [...] - CHEMISTRY KATIA SHER Performing Organization Address City/[facility]/ZIP Co de Phone Number [facility] [address] [place] [address] * CULTURE AFB+SMEAR (10/31/2014 8:07 AM CORPORATE LIBRARIAN) Only the most recent of2 resultswithin the time period is included. [facility] Culture No Acid Fast Bacillus Isolated 12/14/2014 8:20 AM CORPORATE LIBRARIAN [facility] MICROBIOLOGY AFB Smear No Acid Fast bacilli seen 12/14/2014 8:20 AM CORPORATE LIBRARIAN [facility] MICROBIOLOGY Microbiology SPECIMEN FROM LUNG OBTAINED BY BRONCHIAL WASHING PROCEDURE / Unknown 10/31/2014 8:07 AM CORPORATE LIBRARIAN 10/31/2014 8:07 AM CORPORATE LIBRARIAN Don Daniel MD LAB - MICROBIOLOGY Naeem BLEVINS [facility] MICROBIOLOGY [address] [place], [place] [address] [place] [address] * (ABNORMAL) CULTURE FUNGUS OTHER+FUNGUS SMEAR (10/30/2014 9:06 AM CORPORATE LIBRARIAN) Only the most recent of2 resultswithin the time period is included. Pathologist [facility] Culture Rare growth Melani dubliniensis(A) KOFI 11/23/2014 5:51 AM CORPORATE LIBRARIAN [facility] MICROBIOLOGY Fungus Smear No yeast or hyphae seen 11/23/2014 5:51 AM CORPORATE LIBRARIAN [facility] MICROBIOLOGY Fungus Smear No Pneumocystis jirovecii 11/23/2014 5:51 AM [facility] MICROBIOLOGY Microbiology BRONCHIOLOALVEOLAR LAVAGE / Unknown Collection / Unknown 10/30/2014 9:06 AM CORPORATE LIBRARIAN 10/30/2014 10:11 AM CORPORATE LIBRARIAN Don Daniel MD LAB - MICROBIOLOGY O FELICITY Performing Organization Address [facility] Co de Phone Number [facility] MICROBIOLOGY [address] [place] [address], [facility] * CULTURE BRONCHOALVEOLAR LAVAGE QNT+GRAM STAIN (10/30/2014 9:06 AM CORPORATE LIBRARIAN) Pathologist [facility] Culture 10,000-50,000 CFU/mL normal oropharyngeal reyna KOFI 11/01/2014 4:19 AM CORPORATE LIBRARIAN [facility] MICROBIOLOGY Gram Stain Rare White blood cells 11/01/2014 4:19 AM CORPORATE LIBRARIAN [facility] MICROBIOLOGY Gram Stain Rare Gram positive cocci 11/01/2014 4:19 AM CORPORATE LIBRARIAN [facility] MICROBIOLOGY Gram Stain Rare Gram negative bacilli 11/01/2014 4:19 AM CORPORATE LIBRARIAN [facility] MICROBIOLOGY Microbiology BRONCHIOLOALVEOLAR LAVAGE / Unknown Collection / Unknown 10/30/2014 9:06 AM CORPORATE LIBRARIAN 10/30/2014 10:11 AM CORPORATE LIBRARIAN Don Daniel MD LAB - MICROBIOLOGY O FELICITY Performing Organization Address [facility] Co de Phone Number [facility] MICROBIOLOGY [address] [place] [address], [facility] * (ABNORMAL) DIFFERENTIAL MANUAL FLUID (10/30/2014 9:06 AM CORPORATE LIBRARIAN) Total Nucleated Cells Fluid 353(H) 0 - 5 x10^6/L 10/30/2014 12:42 PM CORPORATE LIBRARIAN [facility] Neutrophils % Fluid 20 % 10/30/2014 12:42 PM CORPORATE LIBRARIAN [facility] Lymphocytes % Fluid 20 % 10/30/2014 12:42 PM CORPORATE LIBRARIAN [facility] Monocytes % Fluid 10 % 10/30/2014 12:42 PM CORPORATE LIBRARIAN [facility] Macrophage % Fluid 50 % 10/30/2014 12:42 PM CORPORATE LIBRARIAN [facility] Cells Counted Fluid 100 10/30/2014 12:42 PM [facility] Fluid BODY FLUID SPECIMEN / Unknown Collection / Unknown 10/30/2014 9:06 AM CORPORATE LIBRARIAN 10/30/2014 10:12 AM CORPORATE LIBRARIAN Don Daniel MD LAB - BODY FLUID ORD ERABLES Performing Organization Address [facility] Co de Phone Number [facility] [address] [place] [address] * CELL COUNT W DIFFERENTIAL FLUID (10/30/2014 9:06 AM [facility]) Fluid Type Body Fluid 10/30/2014 12:42 PM [facility] Comment:BAL fluid Character Fluid Clear 10/30/2014 12:42 PM [facility] Color Fluid Colorless 10/30/2014 12:42 PM [facility] Total Nucleated Cells Fluid 353 x10^6/L 10/30/2014 12:42 PM [facility] RBC Fluid <3,000 x10^6/L 10/30/2014 12:42 PM [facility] Comment Fluid Manual Diff to follow 10/30/2014 12:42 PM [facility] Fluid BODY FLUID SPECIMEN / Unknown Collection / Unknown 10/30/2014 9:06 AM [facility] 10/30/2014 10:12 AM CORPORATE LIBRARIAN Dno Daniel MD LAB - BODY FLUID ORD ERABLES Performing Organization Address [facility] Co de Phone Number [facility] [address] [place] [address] * CULTURE BRONCHIAL WASHING+GRAM STAIN (10/30/2014 9:05 AM [facility]) Culture Heavy growth normal oropharyngeal reyna KOFI 11/01/2014 4:43 AM [facility] Gram Stain Moderate Gram negative bacilli 11/01/2014 4:43 AM [facility] Gram Stain Moderate Gram positive cocci 11/01/2014 4:43 AM [facility] Gram Stain Moderate Gram positive bacilli 11/01/2014 4:43 AM [facility] Gram Stain Moderate White blood cells 11/01/2014 4:43 AM [facility] Microbiology SPECIMEN FROM LUNG OBTAINED BY BRONCHIAL WASHING PROCEDURE / Unknown Collection / Unknown 10/30/2014 9:05 AM CORPORATE LIBRARIAN 10/30/2014 10:12 AM CORPORATE LIBRARIAN Don Daniel MD LAB - MICROBIOLOGY O RDERABLES [facility] MICROBIOLOGY [address] [place] * CYTOLOGY NON-AUTOMOTIVE TIRE WORKER PANEL (STL) (10/30/2014 8:30 AM CORPORATE LIBRARIAN) Case Report Cytology Non Plastic Joint Maker Report Case: [id number] Authorizing Provider: Don Daniel MD Collected: 10/30/2014 08:30 AM Ordering Location: [facility] Received: 10/30/2014 11:40 AM Pathologist: Preet Rmaos MD Specimen: Bronch Alveolar Lav 11/03/2014 3:19 PM CORPORATE LIBRARIAN [facility] Final Diagnosis 1. Bronchial alveolar lavage, cell block and ThinPrep smear: -- No evidence of malignancy MG/alj 11/03/2014 3:19 PM CORPORATE LIBRARIAN [facility] Gross Description The specimen is submitted fresh in a conical tube for cytology, labeled with the patient name, Kay Winn and BAL, consists of approximately 5 mL of light pink, translucent fluid with few floating debris. The fluid is entirely submitted for cytology. [employer]/doe 11/03/2014 3:19 PM CORPORATE LIBRARIAN [facility] Microscopic Description The bronchial alveolar lavage cell block and ThinPrep smear reveal bronchial alveolar macrophages. Malignant tumor cells are not seen. A S special stain for PCP is negative. All of the stain(s), control slide(s) and test tissue slide(s) were judged as technically acceptable. MGC/alj 11/03/2014 3:19 PM CORPORATE LIBRARIAN [facility] Pathology/Cytol ogy BRONCHIOLOALVEOLAR LAVAGE / Unknown 10/30/2014 8:30 AM CORPORATE LIBRARIAN 10/30/2014 11:40 AM CORPORATE LIBRARIAN Don Daniel MD LAB - PATHOLOGY/CYTO LOGY ORDERABLES Performing Organization Address City/[facility]/ZIP Co de Phone Number [facility] [address] [place] [address] * BRONCHOSCOPY (10/30/2014 8:05 AM CORPORATE LIBRARIAN) Report Endoscopy POC [facility] Pulmonology __ _ Patient Name: Kay Winn Procedure Date: 10/30/2014 8:05 AM Date of : 1945 Admit Type: Outpatient Age: 69 Gender: Female Attending MD: Don Daniel MD __ _ Procedure: Bronchoscopy Indications: Chronic cough with abnormal chest X-ray Providers: Don Daniel MD (Doctor), Antoinette Kurtz Referring MD: Bebo Hansen MD (Referring MD) Medicines: Monitored Anesthesia Care Complications: Hypoxia __ _ Procedure: After obtaining informed consent, the Bronchoscope was introduced through the mouth, via the endotracheal tube and advanced to the tracheobronchial tree of both lungs. The procedure was accomplished without difficulty. The patient tolerated the procedure fairly well. The total duration of the procedure was 10 minutes. Findings: The oropharynx appears normal. The larynx appears normal. The vocal cords move normally with phonation and breathing. The subglottic space is normal. The trachea is of normal caliber. The jaymie is sharp. The tracheobronchial tree was examined to at least the first subsegmental level. Bronchial mucosa and anatomy are normal; there are no endobronchial lesions, and no secretions. Washings were obtained in the entire tracheobronchial tree of the lung and sent for bacterial, AFB and fungal analysis. The return was clear. Bronchoalveolar lavage was performed in the CANDY superior lingular segment (B4) of the lung and sent for cell count, cytology, bacterial culture, viral smears & culture, and fungal and AFB analysis. 100 mL of fluid were instilled. 40 mL were returned. The return was clear. There were no mucoid plugs in the return fluid __ _ Impression: - Chronic cough with abnormal chest X-ray - The examination was normal. 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 - Bronchoalveolar lavage was performed. Recommendation: - The patient will be observed post-procedure, until all discharge criteria are met. - Await BAL results. - Follow up in clinic as previously scheduled. Procedure Code(s): --- Professional --- 08009, Bronchoscopy, rigid or flexible, including fluoroscopic guidance, when performed; with bronchial alveolar lavage Diagnosis Code(s): --- Professional --- 793.19, Other nonspecific abnormal finding of lung field CPT copyright 2013 [employer]. All rights reserved. The codes documented in this report are preliminary and upon large sheetfed press operator review may be revised to meet current compliance requirements. Don Daniel MD 10/30/2014 8:36 AM This report has been signed electronically. Number of Addenda: 0 Note Initiated On: 10/30/2014 8:05 AM Procedure Date: 10/30/2014 8:05:05 AM [facility] 10/30/2014 8:05 AM CORPORATE LIBRARIAN Don Daniel MD PROCEDURE/MINOR SURG ICAL ORDERABLES [facility] * CT CHEST WO GARCÍA AND MEME (10/09/2014 12:57 PM CORPORATE LIBRARIAN) Anatomical Region Laterality Modality Computed Tomogra phy 10/09/2014 6:30 PM CORPORATE LIBRARIAN Impressions 10/09/2014 6:44 PM CORPORATE LIBRARIAN No evidence of interstitial lung disease. Minimal tree-in-bud opacities and small areas of air trapping, likely reflecting mild small airways disease. Narrative 10/09/2014 6:[address] SCAN OF THE CHEST WITHOUT INTRAVENOUS [...] Bones and soft tissues are otherwise unremarkable. Procedure [...] 6:46 PM CDT Narrative Resulting Agency Comment [facility] [address] [phone] Don Daniel MD LAB - CHEMISTRY KATIA SHER [facility] Organization Address City/State/ZIP Co de Phone Number [facility] INSURANCE BILL * IGE BLOOD (09/08/2014 3:43 PM CDT) IgE 65 0 - 100 IU/mL [facility] INSURANCE BILL Blood specimen (specimen) BLOOD SPECIMEN / Unknown 09/08/2014 3:43 PM CDT 09/08/2014 6:46 PM CDT Narrative Resulting Agency Comment [facility] [phone] Don Daniel MD LAB - CHEMISTRY ORDGabino SHER [facility] INSURANCE BILL * FRACTIONAL EXHALED NITRIC OXIDE (07/30/2014) Provider Unknown RESPIRATORY THERAPY ORDERABLES * COMPLETE PFT (07/30/2014) Bebo Hansen MD RESPIRATORY THERAPY ORDERABLES [facility] RESULT SCAN * ALPHA-1 ANTITRYPSIN (AAT) MUTATION ANALYSIS (PO REF LAB) (07/29/2014) BLOOD SPECIMEN / Unknown Provider Unknown LAB - CHEMISTRY KATIA SHER * MAMMOGRAPHY ORDER (05/25/2014) Anatomical Region Laterality [...] CLIA certified lab, and not by the [facility] Welder Setter Electron Beam Machine. The full result should be confirmed by review of the scanned report from the outside CLIA certified lab that performed the test before clinical decisions are rendered based on these results. Exercise caution when tracking results measured by different laboratories that have not been subject to cross validation studies. Historical Provider LAB - CHEMISTRY Naeem BLEVINS OTHER LAB * LDL CHOLESTEROL (EXTERNAL RESULT [...] CLIA certified lab, and not by the [facility] Welder Setter Electron Beam Machine. The full result should be confirmed by review of the scanned report from the outside CLIA certified lab that performed the test before clinical decisions are rendered based on these results. Exercise caution when tracking results measured by different laboratories that have not been subject to cross validation studies. Historical Provider LAB - CHEMISTRY Naeem BLEVINS Performing Organization Address City/[facility] Co de Phone Number OTHER LAB * (ABNORMAL) [...] CLIA certified lab, and not by the [facility] Welder Setter Electron Beam Machine. The full result should be confirmed by review of the scanned report from the outside CLIA certified lab that performed the test before clinical decisions are rendered based on these results. Exercise caution when tracking results measured by different laboratories that have not been subject to cross validation studies. Historical Provider LAB - CHEMISTRY O RDERACLAIR OTHER LAB * PULMONARY FUNCTION (05/08/2014) Provider [...] IRON + TIBC PANEL (11/28/2012 11:10 AM CORPORATE LIBRARIAN) Only the most recent of4 resultswithin the time period is included. TIBC 410 250 - 450 ug/dL [facility] INSURANCE BILL UIBC 338 150 - 375 ug/dL [facility] INSURANCE BILL Iron 72 35 - 155 ug/dL [facility] INSURANCE BILL Iron Saturation 18 15 - 55 % [facility] INSURANCE BILL Blood specimen (specimen) BLOOD SPECIMEN / Unknown 11/28/2012 11:10 AM CORPORATE LIBRARIAN 11/28/2012 12:58 PM CORPORATE LIBRARIAN Narrative Resulting Agency Comment [facility] [employer] [facility] [phone] Bebo Hansen MD LAB - CHEMISTRY ORDE RABKEISHA [facility] INSURANCE BILL * FERRITIN (11/28/2012 11:10 AM CORPORATE LIBRARIAN) Only the most recent of4 resultswithin the time period is included. Ferritin 29 13 - 150 ng/mL [facility] INSURANCE BILL Blood specimen (specimen) BLOOD SPECIMEN / Unknown 11/28/2012 11:10 AM CORPORATE LIBRARIAN 11/28/2012 12:58 PM CORPORATE LIBRARIAN Narrative Resulting Agency Comment [facility] [address] [facility] [phone] Bebo Hansen MD LAB - CHEMISTRY KATIA SHER Performing Organization Address [facility] Co de Phone Number [facility] INSURANCE BILL * METHYLMALONIC ACID BLOOD [...] 12:37 PM CDT Narrative Resulting Agency Comment [facility] [phone] Bebo Hansen MD LAB - CHEMISTRY KATIA SHER Performing Organization Address [facility] de Phone Number [facility] INSURANCE BILL * VITAMIN B12 FOLATE [...] 1:04 PM CDT Narrative Resulting Agency Comment [facility] [phone] Bebo Hansen MD LAB - CHEMISTRY KATIA SHER Performing Organization Address City/[facility] Co de Phone Number [facility] INSURANCE BILL * ENDOSCOPY, COLON, SCREENING (05/23/2012) Provider Unknown GI PROCEDURE ORDERAB LES * (ABNORMAL) DIGOXIN LEVEL (04/06/2012 8:50 PM CDT) Digoxin < 0.06(L) 0.8 - 2.0 ng/mL [facility] Blood specimen (specimen) BLOOD SPECIMEN / Unknown 04/06/2012 8:50 PM CDT 04/06/2012 9:00 PM CDT Crystal Villar MD LAB - CHEMISTRY KATIA SHER Performing Organization Address [facility] Co de Phone Number [facility] [address] [place] [address] * (ABNORMAL) URINALYSIS ROUTINE AUTO (08/30/2011 12:25 PM CDT) Only the most recent of2 resultswithin the time period is included. Pathologist [facility] Specific Lysite UA 1.023 1.005 - 1.030 [facility] INSURANCE [...] PM CDT Narrative Resulting Agency Comment [facility] [address] [phone] Bebo Hansen MD LAB - URINALYSIS ORD LALO [facility] INSURANCE BILL * URINALYSIS MICROSCOPIC ONLY [...] PM CDT Narrative Resulting Agency Comment [facility] [address] [phone] Bebo Hansen MD LAB - URINALYSIS ORD [...] hours and repeat serum creatinine level. Initial automatic beading lathe operator examination demonstrates normal psoas shadows and right [...] hours and repeat serum creatinine level. Initial automatic beading lathe operator examination demonstrates normal psoas shadows and right [...] Thousand/u L [facility] Comment: Test Performed at: [facility] [address] [place] [address] KLELY MELENDEZ MD 03/12/2009 8:23 AM CDT 03/12/2009 9:26 PM CDT Bebo Hansen MD LAB - HEMATOLOGY ORD ERABLES [facility] [address] [place] [address] * DEXA BONE DENSITY 2 SITES (12/16/2008) Anatomical Region Laterality Modality Other Bebo Hansen MD DEXA ORDERABLES * TELMA-1 ANTIBODY (09/17/2008 11:27 AM CDT) Telma-1 Antibody 12 0 - 99 AU/mL [facility] INSURANCE BILL Comment: Negative <100 Equivocal 100 - 120 Positive >120 09/17/2008 11:2 7 AM CDT 09/17/2008 9:03 PM CDT Narrative Resulting Agency Comment [address] [phone] Bebo Hansen MD LAB - CHEMISTRY KATIA SHER [facility] INSURANCE BILL * ALDOLASE (09/17/2008 11:27 AM CDT) Aldolase 3.4 1.2 - 7.6 U/L [facility] INSURANCE BILL 09/17/2008 11:2 7 AM CDT 09/17/2008 9:03 PM CDT Narrative Resulting Agency Comment [facility] [address] [phone] Bebo Hansen MD LAB - CHEMISTRY KATIA SHER [facility] INSURANCE BILL * URINALYSIS - POINT OF CARE (AMB) [facility] (11/26/1998 12:00 AM CORPORATE LIBRARIAN) Glucose UA [facility] Bilirubin UA POCT [facility] Ketones UA POCT [facility] Specific Lysite UA [facility] Blood Urine POCT [facility] pH UA [facility] Protein UA + [facility] Urobilinogen UA [facility] Nitrite UA [facility] WBC UA [facility] Urine specimen (specimen) 11/26/1998 Nicole Quiles MD LAB - POINT OF CARE ORDERABLES [facility] Care Teams Pig Handler Relationship Specialty Start Date End Date Juana Mesa MD [address] [place] [phone] PCP - General 04/11/21 Juana Mesa MD [address] [place] [phone] 04/11/21 Juana Mesa MD [address] [place] [address] 07/01/20 Juana Mesa MD [address] [place] [address] 12/22/19 Juana Mesa MD [address] [place] [address] 07/21/19 Juana Mesa MD [facility] [place] [address] 07/12/18 Juana Mesa MD [address] [place] [address] Family Medicine 05/03/18 Ra Jara MD [address] [place] [phone] Endocrinology 04/21/14 Dada Lou MD [address] [place] [phone] Internal Medicine 11/09/15 Paco Holden MD [address] [place] [phone] Neurology 05/11/16 Paramjit Escobar MD [address] [place] [phone] Internal Medicine 11/23/16
--- OUTSIDE RECORDS SUMMARY | 2025-01-21 00:09 | XMS_ITS | Encounter Summary ---
Author Organization [facility] Address [address] [facility] [address] [place] [address] Phone Care Team Providers Care Highway Patrol Officer Name Role Phone Dariel De Souza MD Primary Care Provider Bebo Hansne MD Primary Care Provider [phone] Juana Mesa MD Primary Care Provider [phone] Juana Mesa MD Primary Care Provider [phone] Sharlene Meléndez LPN Unavailable [phone] Sharlene Meléndez LPN Unavailable +[phone] Lissette Riley Unavailable No, Physician Primary Care Provider [phone] Paulette Prieto CORRECTIONS LIEUTENANT Primary Care Provider [phone] Meredith Aburto CORRECTIONS LIEUTENANT Primary Care Provi arlette No, Physician Primary Care Provider Encounter Details Date Type Department Care Team (Late st Contact Info) Description 06/01/2014 Orders Only [facility] Provider, MD Dwayne [address] [place] [address] Social History Tobacco Use Types Packs/Day Years Used Date Smoking Tobacco: Never Assessed Alcohol Use Standard Drinks/Week Comments Yes 0 (1 standard drink = 0.6 oz pur e alcohol) Comments Unknown Sex and Gender Information Value Date Recorded Sex Assigned at Not on file Legal Sex Female 9:08 AM CAD DESIGN ENGINEER Gender Identity Female 06/25/2019 7:13 AM [...] diarrhea 04/18/2017 04/17/2017 12/30/2021 2 :39 PM CAD DESIGN ENGINEER COVID: Suspected 07/05/2020 07/05/2020 07/19/2020 3:05 AM CDT COVID: Suspected 07/01/2021 07/01/2021 07/01/2021 2:38 PM CDT COVID: Suspected 07/01/2021 07/01/2021 07/01/2021 9:10 PM CDT COVID19 07/01/2021 07/01/2021 07/15/2021 3:05 AM CDT COVID: Recovered Comment:Added based on recent COVID infection. 07/15/2021 07/15/2021 11/12/2021 3:[address] COVID: Suspected 11/28/2021 11/28/2021 11/28/2021 7:00 PM CAD DESIGN ENGINEER COVID19 11/28/2021 11/28/2021 12/12/2021 3:05 AM CAD DESIGN ENGINEER COVID: Recovered Comment:Added based on recent COVID infection. 12/12/2021 12/12/2021 04/11/2022 3:05 AM C DT COVID: Suspected 07/05/2022 07/05/2022 07/05/2022 10:39 PM CDT MRSA 07/06/2022 07/06/2022 01/02/2023 3:05 AM CAD DESIGN ENGINEER COVID19 12/02/2022 12/02/2022 12/13/2022 3:05 AM CAD DESIGN ENGINEER COVID: Recovered Comment:Added based on recent COVID infection. 12/13/2022 12/15/2022 03/13/2023 3:05 AM C DT Exposure, COVID-19 Comment:No direct exposure. Pt in COVID recovery window. No concern for new infection. Ana Aguilera 01/15/2023 Added automatically based on COVID19 lab answers indicating exposure risk 01/14/2023 01/14/2023 01/15/2023 10:17 AM CAD DESIGN ENGINEER COVID: Suspected 01/14/2023 01/14/2023 01/14/2023 6:42 PM CAD DESIGN ENGINEER Human metapneumovirus, conta ct + droplet 01/14/2023 01/14/2023 01/21/2023 3:[address] COVID: Suspected 01/30/2023 01/30/2023 01/30/2023 10:06 PM CAD DESIGN ENGINEER documented as of this encounter Care Teams Highway Patrol Officer Relationship Specialty Start Date End Date Dariel De Souza MD [address] [address] PCP - General 11/06/07 06/14/17 Bebo Hansen MD [address] [place] [address] PCP - General 06/15/17 10/16/17 Juana Mesa MD [address] [place] [address] PCP - General 10/17/17 11/25/17 [place] [address] [place] [address], [place] [address] PCP - General 11/26/17 10/26/18 No, Physician PCP - General 06/20/22 06/21/22 Paulette Prieto, CARMEN [address] [place] [address] PCP - General Nurse Practitioner 06/22/22 08/16/23 Meredith Aburto NP [address] [place] [address] PCP - General Family Medicine 08/17/23 09/11/24 No, Physician PCP - General 09/12/24 Sharlene Meléndez LPN [address] [place] [address] Leveler Helper 07/02/18 07/02/18 Sharlene Meléndez LPN [address] [place] [address] Leveler Helper 11/05/19 11/05/19 Lissette Riley [address] [place] [address] ACO Care Stock Selector 01/15/20 01/15/20 documented as of this encounter
--- OUTSIDE RECORDS SUMMARY | 2025-01-21 00:09 | XMS_ITS | Encounter Summary ---
Author Organization [facility] Address [address] [facility] [address] [place] [address] Phone Care Team Providers Care Marriage And Family Therapist Name Role Phone Dariel De Souza MD Primary Care Provider Bebo Hansen MD Primary Care Provider Juana Mesa MD Primary Care Provider [phone] Juana Mesa MD Primary Care Provider [phone] Sharlene Meléndez LPN Unavailable [phone] Sharlene Meléndez LPN Unavailable +8-2 Lissette Riley Unavailable No, Physician Primary Care Provider [phone] Paulette Prieto DIRECTOR OF ANALYTICAL DEVELOPMENT Primary Care Provider [phone] Meredith Aburto DIRECTOR OF ANALYTICAL DEVELOPMENT Primary Care Provi arlette No, Physician Primary Care Provider [phone] Encounter Details Date Type Department Care Team (Late st Contact Info) Description 11/02/2015 Orders Only [facility] Provider, MD Dwayne [address] [place] [address] Social History Tobacco Use Types Packs/Day Years Used Date Smoking Tobacco: Never Assessed Alcohol Use Standard Drinks/Week Comments Yes 0 (1 standard drink = 0.6 oz pur e alcohol) Comments Unknown Sex and Gender Information Value Date Recorded Sex Assigned at Not on file Legal Sex Female 9:08 AM RAILROAD OPERATOR Gender Identity Female 06/25/2019 7:13 AM [...] diarrhea 04/18/2017 04/17/2017 12/30/2021 2 :39 PM RAILROAD OPERATOR COVID: Suspected 07/05/2020 07/05/2020 07/19/2020 3:05 AM CDT COVID: Suspected 07/01/2021 07/01/2021 07/01/2021 2:38 PM CDT COVID: Suspected 07/01/2021 07/01/2021 07/01/2021 9:10 PM CDT COVID19 07/01/2021 07/01/2021 07/15/2021 3:05 AM CDT COVID: Recovered Comment:Added based on recent COVID infection. 07/15/2021 07/15/2021 11/12/2021 3:[address] COVID: Suspected 11/28/2021 11/28/2021 11/28/2021 7:00 PM RAILROAD OPERATOR COVID19 11/28/2021 11/28/2021 12/12/2021 3:05 AM RAILROAD OPERATOR COVID: Recovered Comment:Added based on recent COVID infection. 12/12/2021 12/12/2021 04/11/2022 3:05 AM C DT COVID: Suspected 07/05/2022 07/05/2022 07/05/2022 10:39 PM CDT MRSA 07/06/2022 07/06/2022 01/02/2023 3:05 AM RAILROAD OPERATOR COVID19 12/02/2022 12/02/2022 12/13/2022 3:05 AM RAILROAD OPERATOR COVID: Recovered Comment:Added based on recent COVID infection. 12/13/2022 12/15/2022 03/13/2023 3:05 AM C DT Exposure, COVID-19 Comment:No direct exposure. Pt in COVID recovery window. No concern for new infection. Ana Aguilera 01/15/2023 Added automatically based on COVID19 lab answers indicating exposure risk 01/14/2023 01/14/2023 01/15/2023 10:17 AM RAILROAD OPERATOR COVID: Suspected 01/14/2023 01/14/2023 01/14/2023 6:42 PM RAILROAD OPERATOR Human metapneumovirus, conta ct + droplet 01/14/2023 01/14/2023 01/21/2023 3:[address] COVID: Suspected 01/30/2023 01/30/2023 01/30/2023 10:06 PM RAILROAD OPERATOR documented as of this encounter Care Teams Marriage And Family Therapist Relationship Specialty Start Date End Date Dariel De Souza MD [address] [facility] [address] [place] [address] PCP - General 11/06/07 06/14/17 Bebo Hansen MD [address] [facility] [address] [place] [address] PCP - General 06/15/17 10/16/17 Juana Mesa MD [address] [facility] [address] [place] [address] PCP - General 10/17/17 11/25/17 Juana Mesa MD [address] [facility] [address] [place] [address] PCP - General 11/26/17 10/26/18 No, Physician PCP - General 06/20/22 06/21/22 Paulette Prieto, CARMEN [address] [place] [address] PCP - General Nurse Practitioner 06/22/22 08/16/23 Meredith Aburto NP [address] [place] [address] PCP - General Family Medicine 08/17/23 09/11/24 No, Physician PCP - General 09/12/24 Sharlene Meléndez LPN [address] [place] [address] [address] [place] [address] Lacquer Spray Booth Operator 07/02/18 07/02/18 Sharlene Meléndez LPN [address] [place] [address] [address] [place] [address] Lacquer Spray Booth Operator 11/05/19 11/05/19 Lissette Riley [address] [place] [address] ACO Care Manager Unix 01/15/20 01/15/20 documented as of this encounter
--- OUTSIDE RECORDS SUMMARY | 2025-01-21 00:09 | XMS_ITS | Encounter Summary ---
Author Organization [facility] Address [address] [facility] [address] [place] [address] Phone Care Team Providers Care Early Childhood Services Coordinator Name Role Phone Dariel De Souza MD Primary Care Provider [phone] Bebo Hansen MD Primary Care Provider Juana Mesa MD Primary Care Provider [phone] Juana Mesa MD Primary Care Provider [phone] Sharlene Meléndez LPN Unavailable +[phone] Sharlene Meléndez LPN Unavailable +8-2 Lissette Riley Unavailable No, Physician Primary Care Provider [phone] Paulette Prieto SPECIAL DELIVERY CLERK Primary Care Provider [phone] Meredith Aburto SPECIAL DELIVERY CLERK Primary Care Provi arlette No, Physician Primary Care Provider [phone] Encounter Details Date Type Department Care Team (Late st Contact Info) Description 02/04/2015 Orders Only [facility] Provider, MD Dwayne [address] [place] [address] Social History Tobacco Use Types Packs/Day Years Used Date Smoking Tobacco: Never Assessed Alcohol Use Standard Drinks/Week Comments Yes 0 (1 standard drink = 0.6 oz pur e alcohol) Comments Unknown Sex and Gender Information Value Date Recorded Sex Assigned at Not on file Legal Sex Female 9:08 AM RN X RAY Gender Identity Female 06/25/2019 7:13 AM CDT [...] diarrhea 04/18/2017 04/17/2017 12/30/2021 2 :39 PM RN X RAY COVID: Suspected 07/05/2020 07/05/2020 07/19/2020 3:05 AM CDT COVID: Suspected 07/01/2021 07/01/2021 07/01/2021 2:38 PM CDT COVID: Suspected 07/01/2021 07/01/2021 07/01/2021 9:10 PM CDT COVID19 07/01/2021 07/01/2021 07/15/2021 3:05 AM CDT COVID: Recovered Comment:Added based on recent COVID infection. 07/15/2021 07/15/2021 11/12/2021 3:[address] COVID: Suspected 11/28/2021 11/28/2021 11/28/2021 7:00 PM RN X RAY COVID19 11/28/2021 11/28/2021 12/12/2021 3:05 AM RN X RAY COVID: Recovered Comment:Added based on recent COVID infection. 12/12/2021 12/12/2021 04/11/2022 3:05 AM C DT COVID: Suspected 07/05/2022 07/05/2022 07/05/2022 10:39 PM CDT MRSA 07/06/2022 07/06/2022 01/02/2023 3:05 AM RN X RAY COVID19 12/02/2022 12/02/2022 12/13/2022 3:05 AM RN X RAY COVID: Recovered Comment:Added based on recent COVID infection. 12/13/2022 12/15/2022 03/13/2023 3:05 AM C DT Exposure, COVID-19 Comment:No direct exposure. Pt in COVID recovery window. No concern for new infection. Ana Aguilera 01/15/2023 Added automatically based on COVID19 lab answers indicating exposure risk 01/14/2023 01/14/2023 01/15/2023 10:17 AM RN X RAY COVID: Suspected 01/14/2023 01/14/2023 01/14/2023 6:42 PM RN X RAY Human metapneumovirus, conta ct + droplet 01/14/2023 01/14/2023 01/21/2023 3:[address] COVID: Suspected 01/30/2023 01/30/2023 01/30/2023 10:06 PM RN X RAY documented as of this encounter Care Teams Early Childhood Services Coordinator Relationship Specialty Start Date End Date Dariel De Souza MD [address] [address] PCP - General 11/06/07 06/14/17 Bebo Hansen MD [address] [place] [address] PCP - General 06/15/17 10/16/17 Juana Mesa MD [address] [place] [address] PCP - General 10/17/17 11/25/17 [place] [address] [place] [address], [place] [address] PCP - General 11/26/17 10/26/18 No, Physician PCP - General 06/20/22 06/21/22 Paulette Prieto, CARMEN [address] [place] [address] PCP - General Nurse Practitioner 06/22/22 08/16/23 Meredith Aburto NP [address] [place] [address] PCP - General Family Medicine 08/17/23 09/11/24 No, Physician PCP - General 09/12/24 Sharlene Meléndez LPN [address] [facility] [place] [address] Sandwich Machine Operator 07/02/18 07/02/18 Sharlene Meléndez LPN [address] [place] [address] Sandwich Machine Operator 11/05/19 11/05/19 Lissette Riley [address] [place] [address] ACO Care Fellmongery Worker 01/15/20 01/15/20 documented as of this encounter
[2025-01-21 09:03] LABS: Basophils Absolute Auto 0.1 K/mm3 (0.0-0.1); Basophils Percent Auto 0.8 % (0.2-1.2); Eosinophils Absolute Auto 0.4 K/mm3 (0-0.3); Eosinophils Percent Auto 5.6 % (0-4.4); Hematocrit 36.2 % (37.0-47.0); Hemoglobin 11.3 g/dL (12.0-15.0); Immature Granulocyte Absolute 0.13 K/mm3 (0.00-0.031); Immature Granulocyte Percent A 1.8 % (0-0.5); Lymphocytes Absolute Auto 0.73 K/mm3 (0.9-3.2); Mean Corpuscular HGB Conc 31.2 g/dl (32-36); Mean Corpuscular Hemoglobin 31.1 pg (26-34); Mean Corpuscular Volume 99.7 fl (80-100); Mean Platelet Volume 8.9 fl (7.4-10.4); Monocytes Absolute Auto 0.7 K/mm3 (0.1-0.6); Monocytes Percent Auto 9.7 % (2.6-8.5); Neutrophils Absolute Auto 5.3 K/mm3 (1.3-6.7); Neutrophils Percent Auto 72.1 % (45.5-73.1); Platelet Count Result 273 k/mm3 (150-375); Red Blood Count 3.63 M/mm3 (4.2-5.4); Red Cell Distribution Width 17.1 % (11.5-14.5); White Blood Count 7.3 K/mm3 (4.5-10.0)
--- NOTE | 2025-01-21 09:13 | P.SEDATION_ITS ---
Moderate Sedation Note-Pt Data Patient Data Diagnosis: history of chronic atrial fibrillation with slow response and chronically implanted pacemaker which is at PAUL status post mechanical mitral valve replacement for mitral stenosis Present Complaint: none Procedure to be performed/Plan: pacemaker generator change Allergies Allergy/AdvReac Type Severity Reaction Status Date / Time codeine AdvReac Mild Nausea Verified 01/21/25 08:46 Home Medications ?Medication ?Instructions ?Recorded ?Confirmed ?Type atorvastatin 10 mg tablet (Lipitor) 10 mg PO HS 03/04/21 01/20/25 History budesonide 160 mcg-glycopyr 9 2 inh inhalation BID 03/04/21 05/12/24 History mcg-formot 4.8 mcg/actuation HFA inhaler (Breztri Aerosphere) carvedilol 25 mg tablet (Coreg) 3.125 mg PO BID 03/04/21 05/12/24 History semaglutide 1 mg/dose (2 mg/1.5 1 mg subcut WEEKLY 03/04/21 01/20/25 History mL) subcutaneous pen injector (Ozempic) warfarin 2 mg tablet (Jantoven) 2 mg PO HS 04/06/22 01/20/25 History escitalopram oxalate 10 mg tablet 10 mg PO DAILY #30 tabs 04/08/22 01/20/25 Rx azelastine 137 mcg (0.1 %) nasal 2 spray intranasal BID 12/12/22 01/20/25 History spray dapagliflozin propanediol 10 mg 10 mg PO DAILY 12/12/22 01/20/25 History tablet (Farxiga) donepezil 5 mg tablet 5 mg PO HS 12/12/22 01/20/25 History fluticasone propionate 50 1 spray intranasal BID 12/12/22 05/12/24 History mcg/actuation nasal spray,suspension ropinirole 1 mg tablet 1 mg PO HS 12/12/22 05/12/24 History famotidine 20 mg tablet 20 mg PO DAILY #30 tabs 02/09/23 05/12/24 Rx furosemide 20 mg tablet 20 mg PO DAILY #30 tabs 02/09/23 01/20/25 Rx ketotifen fumarate 0.025 % (0.035 1 drp EACH EYE BID #30 mL 02/09/23 05/12/24 Rx %) eye drops losartan 100 mg tablet 100 mg PO DAILY #30 tabs 02/09/23 05/12/24 Rx mupirocin 2 % topical ointment 1 applic topical TID #15 grams 02/09/23 05/12/24 Rx nystatin 100,000 unit/gram topical 1 applic topical Q12HR #1 g 02/09/23 05/12/24 Rx powder polyethylene glycol 3350 17 gram 17 g PO BID PRN Constipation #30 ea 02/09/23 01/20/25 Rx oral powder packet (Miralax) sennosides 8.6 mg-docusate sodium 1 tab PO BID #30 tabs 02/09/23 05/12/24 Rx 50 mg tablet (Senokot-S) spironolactone 25 mg tablet 25 mg PO QAM #30 tabs 02/09/23 05/12/24 Rx doxycycline monohydrate 100 mg 100 mg PO BID #14 tabs 12/22/24 Rx tablet methylprednisolone 4 mg tablets in See Rx Instructions PO .COMPLEX 12/22/24 Rx a dose pack (Medrol (John)) #21 ea acetaminophen 500 mg capsule 500 mg PO Q6H PRN pain 01/20/25 01/20/25 History albuterol sulfate 90 mcg/actuation 1 puff inhalation Q4H PRN 01/20/25 01/20/25 History aerosol inhaler shortness of breath or wheezing ferrous sulfate 325 mg (65 mg 325 mg PO DAILY 01/20/25 01/20/25 History iron) tablet (Jagjit-Time) hydrocodone 5 mg-acetaminophen 325 1 tablet PO Q6H PRN pain 01/20/25 01/20/25 History mg tablet loperamide 2 mg capsule (Imodium 4 mg PO Q6H PRN loose stool 01/20/25 01/20/25 History A-D) melatonin 3 mg capsule 3 mg PO HS PRN sleep 01/20/25 01/20/25 History ondansetron 4 mg disintegrating 8 mg PO Q6H PRN nausea and vomiting 01/20/25 01/20/25 History tablet potassium chloride 20 mEq 20 meq PO DAILY 01/20/25 01/20/25 History tablet,extended release (K-Tab) vibegron 75 mg tablet (Gemtesa) 75 mg PO DAILY 01/20/25 01/20/25 History Sedation/Anesthesia: No previous sedation/anesthesia problems (including family history). PMFSH Past Medical History Medical History B12 deficiency B12 deficiency Chronic anticoagulation Chronic kidney disease, stage 3 Chronic obstructive pulmonary disease Gout Heart failure Echocardiogram in March 2022 showed mildly reduced LV systolic function with an EF of 50% and abnormal diastolic function. Hypertension Kidney stones Obstructive sleep apnea On APAP. Osteoporosis Type 2 diabetes mellitus Urinary frequency Urinary incontinence Surgical History Surgical History History of appendectomy History of hysterectomy History of mitral valve replacement with mechanical valve (04/2006) [facility] Loc valve. History of permanent cardiac pacemaker placement Family History Family History Mother Family history of coronary artery disease Social History Social History Social History: Surrogate medical decision maker: Deneen Winn or Corinne Shellie, daughters. Code status: Full code. Smoking packs per day: 3 Smoking cigarettes per day: 60.0 Years smoked: 18 Smoking pack-years: 54.00 Smoking status: Former smoker Tobacco type: cigarettes Second hand tobacco smoke exposure: Yes Alcohol intake: current Drinks per week: 1 Substance use: never Substance use type: does not use Last use: 1974 Lack of Transportation: No Lack of Food: Never True Current Housing: I Have Housing Concerned About Future Housing: No Difficulty Paying Gas/Electric Bills: No Difficulty Paying for Meds: No Currently Unemployed: No Education: Associate Degree Difficulty w/ Childcare or Family Care: No Living arrangements: assisted living Additional living arrangements comments: Assisted living at [facility]. Spiritual care concerns: No Mod Sed Physical Exam Physical Exam Pre Procedural Exam: Normal: Appearance ( pleasant elderly lady no distress), Throat, Airway, Lungs, Heart Size, Heart Rate, Neuro Exam and Extremities and Variation: Heart Rate and Heart Rhythm ( paced rhythm) Hours since solid foods: 12 Hours since liquid intake: 12 Mallampati Classification: class II Internal Medicine - PN: Obj Da Vital Signs Vital Signs: Vital Signs - 24 hr 01/21/25 08:50 Temperature 36.6 C Pulse Rate 65 Respiratory Rate 19 Blood Pressure 176/67 H Pulse Oximetry 97 Oxygen Delivery Room Air Labs 01/21/25 08:48 01/21/25 08:48 Labs: Laboratory Results - last 24 hr 01/21/25 08:48 WBC 7.3 RBC 3.63 L Hgb 11.3 L Hct 36.2 L MCV 99.7 MCH 31.1 MCHC 31.2 L RDW 17.1 H Plt Count 273 D MPV 8.9 Immature Gran % (Auto) 1.8 H Neut % (Auto) 72.1 Lymph % (Auto) 10.0 L [place] % (Auto) 9.7 H Eos % (Auto) 5.6 H Baso % (Auto) 0.8 Lymph # (Auto) 0.73 L [place] # (Auto) 0.7 H Eos # (Auto) 0.4 H Baso # (Auto) 0.1 Abs Immat Gran (auto) 0.13 H Absolute Neuts (auto) 5.3 Absolute Nucleated RBC 0.000 Nucleated RBC % 0.0 ASA Classification/Sedation ASA Classification/Sedation ASA Class: III Emergent: No Risks: Risks, benefits and alternatives explained and patient/family accepted plan for sedation. Patient re-evaluated immediately prior to sedation.
--- NOTE | 2025-01-21 09:14 | P.HP_ITS ---
H&P: HPI History of Present Illness Date/Time: 01/21/25 09:14 Chief Complaint: elective admission for pacemaker generator change Narrative: this is a 79-year-old woman with a history of mitral valve stenosis and a chronic atrial fib with slow ventricular response. She has a Medtronic pacemaker device which on routine follow-up has been found to be at PAUL. She takes warfarin for her mechanical mitral valve prosthesis. This was performed at 8:06 p.m. to treat significant mitral valve stenosis. She is admitted today for pacemaker generator change. If the patient is pacemaker dependent after interrogation we will anticipate placing a temporary transvenous lead to protect the rhythm while we performed generator change procedure. She has no other complaints today and offers no symptoms. Her significant comorbidities include hypertension, diabetes, dyslipidemia, COPD and history of sleep apnea for which she uses CPAP. Previous surgical history other than the mitral valve replacement includes total abdominal hysterectomy, and cataract surgery. Review of Systems Constitutional: Constitutional: Reports no additional constitutional complaints and Reports fatigue Eyes: Eyes: Reports no additional eye complaints ENT: Reports system reviewed and no additional complaints, except as documented Cardiovascular: Cardiovascular: Reports no additional cardiovascular complaints Respiratory: Respiratory: Reports no additional respiratory complaints Gastrointestinal: Gastrointestinal: Reports no additional gastrointestinal complaints Musculoskeletal: Musculoskeletal: Reports back pain Integumentary/Breasts: Skin/Breast: Reports system reviewed and no additional complaints, except as docu Neurologic: Reports system reviewed and no additional complaints, except as documented [facility] Past Medical History Medical History B12 deficiency B12 deficiency Chronic anticoagulation Chronic kidney disease, stage 3 Chronic obstructive pulmonary disease Gout Heart failure Echocardiogram in March 2022 showed mildly reduced LV systolic function with an EF of 50% and abnormal diastolic function. Hypertension Kidney stones Obstructive sleep apnea On APAP. Osteoporosis Type 2 diabetes mellitus Urinary frequency Urinary incontinence Surgical History Surgical History History of appendectomy History of hysterectomy History of mitral valve replacement with mechanical valve (04/2006) [facility] valve. History of permanent cardiac pacemaker placement Family History Family History Mother Family history of coronary artery disease Social History Social History Social History: Surrogate medical decision maker: Deneen Winn or Corinne Hensley, daughters. Code status: Full code. Smoking packs per day: 3 Smoking cigarettes per day: 60.0 Years smoked: 18 Smoking pack-years: 54.00 Smoking status: Former smoker Tobacco type: cigarettes Second hand tobacco smoke exposure: Yes Alcohol intake: current Drinks per week: 1 Substance use: never Substance use type: does not use Last use: 1974 Lack of Transportation: No Lack of Food: Never True Current Housing: I Have Housing Concerned About Future Housing: No Difficulty Paying Gas/Electric Bills: No Difficulty Paying for Meds: No Currently Unemployed: No Education: Associate Degree Difficulty w/ Childcare or Family Care: No Living arrangements: assisted living Additional living arrangements comments: Assisted living at [place]. Spiritual care concerns: No Meds Home Medications and Allergies Home Medications ?Medication ?Instructions ?Recorded ?Confirmed ?Type atorvastatin 10 mg tablet (Lipitor) 10 mg PO HS 03/04/21 01/20/25 History budesonide 160 mcg-glycopyr 9 2 inh inhalation BID 03/04/21 05/12/24 History mcg-formot 4.8 mcg/actuation HFA inhaler (Breztri Aerosphere) carvedilol 25 mg tablet (Coreg) 3.125 mg PO BID 03/04/21 05/12/24 History semaglutide 1 mg/dose (2 mg/1.5 1 mg subcut WEEKLY 03/04/21 01/20/25 History mL) subcutaneous pen injector (Ozempic) warfarin 2 mg tablet (Jantoven) 2 mg PO HS 04/06/22 01/20/25 History escitalopram oxalate 10 mg tablet 10 mg PO DAILY #30 tabs 04/08/22 01/20/25 Rx azelastine 137 mcg (0.1 %) nasal 2 spray intranasal BID 12/12/22 01/20/25 History spray dapagliflozin propanediol 10 mg 10 mg PO DAILY 12/12/22 01/20/25 History tablet (Farxiga) donepezil 5 mg tablet 5 mg PO HS 12/12/22 01/20/25 History fluticasone propionate 50 1 spray intranasal BID 12/12/22 05/12/24 History mcg/actuation nasal spray,suspension ropinirole 1 mg tablet 1 mg PO HS 12/12/22 05/12/24 History famotidine 20 mg tablet 20 mg PO DAILY #30 tabs 02/09/23 05/12/24 Rx furosemide 20 mg tablet 20 mg PO DAILY #30 tabs 02/09/23 01/20/25 Rx ketotifen fumarate 0.025 % (0.035 1 drp EACH EYE BID #30 mL 02/09/23 05/12/24 Rx %) eye drops losartan 100 mg tablet 100 mg PO DAILY #30 tabs 02/09/23 05/12/24 Rx mupirocin 2 % topical ointment 1 applic topical TID #15 grams 02/09/23 05/12/24 Rx nystatin 100,000 unit/gram topical 1 applic topical Q12HR #1 g 02/09/23 05/12/24 Rx powder polyethylene glycol 3350 17 gram 17 g PO BID PRN Constipation #30 ea 02/09/23 01/20/25 Rx oral powder packet (Miralax) sennosides 8.6 mg-docusate sodium 1 tab PO BID #30 tabs 02/09/23 05/12/24 Rx 50 mg tablet (Senokot-S) spironolactone 25 mg tablet 25 mg PO QAM #30 tabs 02/09/23 05/12/24 Rx acetaminophen 500 mg capsule 500 mg PO Q6H PRN pain 01/20/25 01/20/25 History albuterol sulfate 90 mcg/actuation 1 puff inhalation Q4H PRN 01/20/25 01/20/25 History aerosol inhaler shortness of breath or wheezing ferrous sulfate 325 mg (65 mg 325 mg PO DAILY 01/20/25 01/20/25 History iron) tablet (Jagjit-Time) hydrocodone 5 mg-acetaminophen 325 1 tablet PO Q6H PRN pain 01/20/25 01/20/25 History mg tablet loperamide 2 mg capsule (Imodium 4 mg PO Q6H PRN loose stool 01/20/25 01/20/25 History A-D) melatonin 3 mg capsule 3 mg PO HS PRN sleep 01/20/25 01/20/25 History ondansetron 4 mg disintegrating 8 mg PO Q6H PRN nausea and vomiting 01/20/25 01/20/25 History tablet potassium chloride 20 mEq 20 meq PO DAILY 01/20/25 01/20/25 History tablet,extended release (K-Tab) vibegron 75 mg tablet (Gemtesa) 75 mg PO DAILY 01/20/25 01/20/25 History Allergies Allergy/AdvReac Type Severity Reaction Status Date / Time codeine AdvReac Mild Nausea Verified 01/21/25 08:46 Vital Signs Vital Signs - 24 hr 01/21/25 08:50 Temperature 36.6 C Pulse Rate 65 Respiratory Rate 19 Blood Pressure 176/67 H Pulse Oximetry 97 Oxygen Delivery Room Air Exam Const: General: comfortable and no acute distress Other: Pleasant elderly lady no distress HENMT: Mouth: Yes moist mucous membranes Eyes: Sclera: sclerae normal Neck: Neck: supple and no JVD Resp: Effort & Inspection: normal respiratory effort Auscultation: clear to auscultation bilaterally Cardio: Rate: regular rate Rhythm: regular rhythm Other: paced rhythm, normal crisp mitral valve closure sound noted GI: GI Palp: Yes Soft to palpation Auscultation: normal bowel sounds Skin: General skin exam: normal color Neuro: Other: alert and oriented x3 Extrem: General: normal to inspection H&P: Results Labs Labs: Short CBC 01/21/25 Range/Units 08:48 WBC 7.3 (4.5-10.0) K/mm3 Hgb 11.3 L (12.0-15.0) g/dL Hct 36.2 L (37.0-47.0) % Plt Count 273 D (150-375) k/mm3 Assessment and Plan Assessment and plan (1) H/O mitral valve replacement with mechanical valve: Code(s): Z95.2 - Presence of prosthetic heart valve Status: Acute (2) Pacemaker at end of battery life: Code(s): Z45.010 - Encounter for checking and testing of cardiac pacemaker pulse generator [battery] Status: Acute Plan 79-year-old lady with chronically implanted pacemaker to treat atrial fib with slow ventricular response. Her device is at PAUL and she is admitted today electively for pacemaker generator change. Because of her mechanical mitral valve prosthesis her Coumadin was stopped several days before this procedure. She will then need to be admitted for IV heparin and re loading with Coumadin. Discharge will be anticipated once INR reaches at least 2.0. Paramjit Baum MD FACC
[2025-01-21 09:16] LABS: Anion Gap 7 mmol/L (4-12); Blood Urea Nitrogen 25 mg/dL (7-17); Calcium 9.3 mg/dL (8.4-10.2); Carbon Dioxide 27 mmol/L (22-30); Chloride 106 mmol/L (98-107); Estimated CRCL calculation 29 ml/min; Estimated Glomerular Filt Rate 35; Glucose 91 mg/dL (65-110); Potassium 4.4 mmol/L (3.4-5.0); Sodium 140 mmol/L (137-145)
[2025-01-21 09:18] LABS: INR 1.4
--- NOTE | 2025-01-21 11:00 | ECG_ITS ---
Test Date: 2025-01-21 14:21:15 Measurements Intervals [place] Rate: 60 P: 0 [place]: 0 QRS: -6 QRSD: 161 T: 143 QT: 479 QTc: 479 Interpretive Statements ELECTRONIC VENTRICULAR PACEMAKER BASELINE ARTIFACT- I, II, III, AVR, AVL, AVF NO FURTHER INTERPRETATION IS POSSIBLE ATYPICAL ECG Compared to ECG 12/22/2024 11:08:52 No significant changes Electronically Signed On 01-21-2025 14:25:56 JAVA XML DEVELOPER by Vince Hernandez D.O.
--- NOTE | 2025-01-21 11:05 | WPDCARDPROC ---
Cardiac Cath Procedure Note Date of procedure:: 01/21/25 Performing physician:: Paramjit Baum MD Indication:: Chronically implanted pacemaker at [facility] Brief clinical history:: This is an 79-year-old woman who has a history of mechanical mitral valve replacement for mitral stenosis in 2005. She has chronic atrial fibrillation with slow ventricular response and a chronically implanted pacemaker device which is at PAUL. She has mid to the hospital today for pacemaker generator change. Interrogation this morning shows that she is not dependent Procedure Procedure performed:: Explantation of depleted pacemaker pulse generator Implantation of new pacemaker pulse generator Sedation/Medication given:: Fentanyl 50 mg Versed 2 mg Case start time 10:30 a.m. Case end time 10:56 a.m. Sedation provided by Maddison Gross RN, trained observer Access site:: Left anterior chest wall pocket Estimated blood loss:: Minimal Procedure note:: Patient was brought to the cardiac catheterization lab in the postabsorptive state where the left anterior chest wall was prepped and draped in a sterile fashion. The pacemaker pocket was identified and 20 cc of 1% lidocaine was injected for local anesthetic. Following this the PlasmaBlade was used to create an incision over the pocket, provide electrocautery and dissect the subcutaneous tissue and identify the fibrous capsule around the generator. This was then opened using the plasma blade and the Metzenbaum scissors and the chronically implanted pacemaker with the attached lead was removed and was unremarkable in appearance. The device was disconnected from the lead using the torque wrench and the new device was connected to the lead using the same torque wrench. The pocket was irrigated with Ancef infused saline. The device was wrapped and Tyrex antibiotic pouch. The device in the lead was placed back into the chronically created pocket and the pocket was then closed in layers using 3-0 Vicryl in an interrupted fashion for the subcutaneous tissue and 4-0 Vicryl in a running subcuticular fashion for the skin. The wound was dressed with an Aquacel dressing she was taken to the holding area in stable condition. The procedure was well tolerated and uncomplicated. Findings:: Explanted pacemaker is is Medtronic single-chamber pacemaker model ADSR01 serial number [id number]. Originally implanted October 25, 2015. The ventricular lead is a Medtronic bipolar lead model 5076-52 serial number [id number]. The lead was implanted December 26, 2016. The R-waves are sensed at 6.8 mV threshold 0.5 volts at 0.4 milliseconds pacing impedance 380 Ohms. The new pacemaker generator is a WinView single-chamber device model W3SR01 serial number [id number]. Device is programmed in the VVIR mode lower rate limit 60 upper rate limit 120. Conclusion:: 1. Successful uncomplicated explantation of depleted pacemaker pulse generator 2. Successful uncomplicated implantation of new single-chamber pulse generator for treatment of slow atrial fibrillation in this 79-year-old lady who also has a history of mechanical mitral valve replacement for mitral stenosis. 3. Patient will now be admitted for IV heparin until INR has achieved therapeutic range as Coumadin will be resumed Paramjit Baum MD [facility]
[2025-01-21] MEDS: SODIUM CHLORIDE 0.9% IV 1,000 ML 125 ML IV CONT (11:56)
[2025-01-21] MEDS: HEPARIN SOD/D5W 100 UNITS/ML 25,000 UNITS/250 ML BAG 12 UNITS IV CONT (11:56)
--- NOTE | 2025-01-21 15:15 | ADMGEN ---
This patient, Kay Winn, was admitted to [facility]. Patient/family oriented to hospital policies and general routines including ID bracelet, bed and alarms, visiting hours, pain management, procedures, bathroom and other care routines, personal items, smoking policy, room service/diet, and visiting hours. Information on how to activate the Rapid Response Team has been discussed. Patient/Family are encouraged to report perceived risks to care and to ask questions if they do not understand what they are told or what they should do.
[2025-01-21] MEDS: ceFAZolin 1 GM/NS 50 ML 1 GM/50 ML BAG IVPB ×2 (17:09→23:32)
[2025-01-21] MEDS: WARFARIN (*PBKC) 5 MG TABLET PO (17:10)
[2025-01-21 20:06] LABS: Partial Thromboplastin Time 97.7 Seconds (22.3-36.8)
[2025-01-21] MEDS: MELATONIN 3 MG TABLET PO (21:25)
[2025-01-21] MEDS: ATORVASTATIN 10 MG TABLET PO (21:25)
[2025-01-21] MEDS: SENNA/DOCUSATE SODIUM TABLET 1 TAB PO (21:25)
[2025-01-21] MEDS: DONEPEZIL HCL 5 MG TABLET PO (21:25)
[2025-01-21] MEDS: MUPIROCIN 2% OINT 22 GM TUBE 1 APPLIC TOPICAL (21:27)
[2025-01-21 21:59] LABS: Glucose Point of Care 130 mg/dl (65-105)
[2025-01-22] VITALS (14 sets, daily range): BP systolic 144–163; BP diastolic 54–82; PULSE 60–66; RESP 18–21; TEMP 36.6–37.3; O2SAT 95–99
[2025-01-22] MEDS: LOSARTAN POTASSIUM 100 MG TABLET PO (01:59)
[2025-01-22 02:39] LABS: Partial Thromboplastin Time > 200.0 Seconds (22.3-36.8)
[2025-01-22 06:14] LABS: Basophils Absolute Auto 0.1 K/mm3 (0.0-0.1); Basophils Percent Auto 0.8 % (0.2-1.2); Eosinophils Absolute Auto 0.4 K/mm3 (0-0.3); Eosinophils Percent Auto 5.6 % (0-4.4); Immature Granulocyte Absolute 0.19 K/mm3 (0.00-0.031); Lymphocytes Absolute Auto 0.72 K/mm3 (0.9-3.2); Lymphocytes Percent Auto 11.4 % (18.3-44.2); Mean Corpuscular HGB Conc 31.3 g/dl (32-36); Mean Corpuscular Hemoglobin 31.5 pg (26-34); Mean Corpuscular Volume 100.9 fl (80-100); Monocytes Absolute Auto 0.6 K/mm3 (0.1-0.6); Monocytes Percent Auto 10.2 % (2.6-8.5); Neutrophils Absolute Auto 4.4 K/mm3 (1.3-6.7); Nucleated Red Blood Cells Perc 0.3 % (0.0-0.2); Platelet Count Result 239 k/mm3 (150-375); Red Blood Count 3.17 M/mm3 (4.2-5.4); White Blood Count 6.3 K/mm3 (4.5-10.0)
[2025-01-22 06:26] LABS: INR 1.6
[2025-01-22 06:27] LABS: Potassium 4.1 mmol/L (3.4-5.0)
--- NOTE | 2025-01-22 06:28 | PC.NURSE ---
This patient, Kay Winn, was transferred to ICU 6 on 01/22/25 at 0626. Personal belongings sent with patient. Report given to CAROL ANN Clarke. Appropriate documentation sent with patient.
[2025-01-22 06:29] LABS: Partial Thromboplastin Time 148.4 Seconds (22.3-36.8)
[2025-01-22] MEDS: FAMOTIDINE 20 MG TABLET PO (08:52)
[2025-01-22] MEDS: ESCITALOPRAM OXALATE 10 MG TABLET PO (08:53)
[2025-01-22] MEDS: SENNA/DOCUSATE SODIUM TABLET 1 TAB PO ×2 (08:53→17:16)
[2025-01-22] MEDS: POTASSIUM CHLORIDE 20 MEQ ER TABLET PO (08:53)
[2025-01-22] MEDS: FERROUS SULFATE 325 MG TABLET DR PO (08:53)
[2025-01-22] MEDS: FUROSEMIDE 20 MG TABLET PO (08:54)
[2025-01-22] MEDS: EMPAGLIFLOZIN 25 MG TABLET BY MOUTH (08:59)
[2025-01-22] MEDS: MUPIROCIN 2% OINT 22 GM TUBE 1 APPLIC TOPICAL ×3 (09:01→17:18)
[2025-01-22] MEDS: ceFAZolin 1 GM/NS 50 ML 1 GM/50 ML BAG IVPB ×2 (09:53→17:16)
[2025-01-22 09:56] LABS: Partial Thromboplastin Time 178.1 Seconds (22.3-36.8)
[2025-01-22] MEDS: SPIRONOLACTONE 25 MG TABLET PO (11:28)
[2025-01-22] MEDS: HEPARIN SOD/D5W 100 UNITS/ML 25,000 UNITS/250 ML BAG 8 UNITS IV CONT (11:29)
--- NOTE | 2025-01-22 14:47 | PM.PNCARD ---
Progress Note: A&P Assessment and Plan (1) H/O mitral valve replacement with mechanical valve: Code(s): Z95.2 - Presence of prosthetic heart valve Status: Acute (2) Pacemaker at end of battery life: Code(s): Z45.010 - Encounter for checking and testing of cardiac pacemaker pulse generator [battery] Status: Acute Plan 79-year-old lady with chronically implanted pacemaker to treat atrial fib with slow ventricular response. Her device is at [facility] and she is admitted today electively following pacemaker generator change. Because of her mechanical mitral valve prosthesis her Coumadin was stopped several days before this procedure. She will then need to be admitted for IV heparin and re loading with Coumadin. Discharge will be anticipated once INR reaches at least 2.0. INR 1.6 today. Subjective Date/time seen: 01/22/25 14:47 Interval history: Cardiology follow up visit Feeling well s/p pacemaker generator change. Has some fatigue. No shortness of breath or chest pain. Review of Systems Constitutional: Constitutional: Reports no additional constitutional complaints and Reports fatigue Eyes: Eyes: Reports no additional eye complaints ENT: Reports system reviewed and no additional complaints, except as documented Cardiovascular: Cardiovascular: Reports no additional cardiovascular complaints Respiratory: Respiratory: Reports no additional respiratory complaints Gastrointestinal: Gastrointestinal: Reports no additional gastrointestinal complaints Musculoskeletal: Musculoskeletal: Reports back pain Integumentary/Breasts: Skin/Breast: Reports system reviewed and no additional complaints, except as docu Neurologic: Reports system reviewed and no additional complaints, except as documented Endocrine: Endocrine: Reports fatigue Exam Const: General: comfortable and no acute distress Other: Pleasant elderly lady no distress HENMT: Mouth: Yes moist mucous membranes Eyes: Sclera: sclerae normal Neck: Neck: supple and no JVD Chest: Other: L pectoral incision covered with sterile dressing which is clean, dry, intact. No hematoma. Resp: Effort & Inspection: normal respiratory effort Auscultation: clear to auscultation bilaterally Cardio: Rate: regular rate Rhythm: regular rhythm Other: paced rhythm, normal crisp mitral valve closure sound noted GI: Auscultation: normal bowel sounds Skin: General skin exam: normal color Neuro: Other: alert and oriented x3 Extrem: General: normal to inspection Objective Data Vital Signs Vital Signs: Vital Signs - 24 hr 01/21/25 16:00 01/21/25 16:00 01/21/25 18:00 Temperature 36.8 C Pulse Rate 60 60 62 Respiratory Rate 19 Blood Pressure 169/78 H Pulse Oximetry 95 Oxygen Delivery 01/21/25 20:00 01/21/25 20:00 01/21/25 20:00 Temperature 36.2 C L Pulse Rate 60 60 Respiratory Rate 23 H Blood Pressure 174/68 H Pulse Oximetry 97 Oxygen Delivery Room Air 01/21/25 22:00 01/22/25 00:00 01/22/25 00:00 Temperature Pulse Rate 60 61 Respiratory Rate Blood Pressure Pulse Oximetry Oxygen Delivery Room Air 01/22/25 00:00 01/22/25 01:54 01/22/25 02:00 Temperature 36.6 C Pulse Rate 61 60 61 Respiratory Rate 19 Blood Pressure 158/54 H 144/63 H Pulse Oximetry 96 Oxygen Delivery 01/22/25 04:00 01/22/25 04:00 01/22/25 04:00 Temperature 37.3 C Pulse Rate 60 60 Respiratory Rate 21 H Blood Pressure 154/62 H Pulse Oximetry 97 Oxygen Delivery Room Air 01/22/25 06:00 01/22/25 08:00 01/22/25 08:00 Temperature 36.6 C Pulse Rate 60 60 60 Respiratory Rate 21 H Blood Pressure 149/61 H Pulse Oximetry 98 Oxygen Delivery 01/22/25 08:00 01/22/25 10:00 01/22/25 12:00 Temperature 36.7 C Pulse Rate 60 60 60 Respiratory Rate 21 H 21 H Blood Pressure 153/82 H Pulse Oximetry 98 95 Oxygen Delivery Room Air 01/22/25 12:00 01/22/25 12:00 01/22/25 14:00 Temperature Pulse Rate 60 60 60 Respiratory Rate 21 H Blood Pressure Pulse Oximetry 95 Oxygen Delivery Room Air Intake/Output Intake/Output: Intake & Output 01/19/25 01/20/25 01/21/25 01/22/25 23:59 23:59 23:59 23:59 Intake Total 290 750 Output Total 550 Balance 290 200 Meds/Results Medications: Active Medications Generic Name Dose Route Start Last Admin Trade Name Freq PRN Reason Stop Dose Admin Acetaminophen 500 mg 01/21/25 11:01 Acetaminophen 500 Mg Tablet PO Q6H PRN pain 1-3 Hydrocodone Bitart/Acetaminophen 1 tab 01/21/25 11:01 Hydrocodone/Acetaminophen (*Crx) 5-325 Mg Tablet PO Q6H PRN pain 4-6 Albuterol 1 puff 01/21/25 11:01 Albuterol Sulfate (*Sp) Aerosol 1 Puff INHALATION Q4H PRN shortness of breath or wheezing Atorvastatin Calcium 10 mg 01/21/25 21:00 01/21/25 21:25 Atorvastatin 10 Mg Tablet PO 10 mg HS SKYLAR Administration Donepezil HCl 5 mg 01/21/25 21:00 01/21/25 21:25 Donepezil Hcl 5 Mg Tablet PO 5 mg HS SKYLAR Administration Empagliflozin 25 mg 01/22/25 09:00 01/22/25 08:59 Empagliflozin 25 Mg Tablet BY MOUTH 25 mg DAILY SKYLAR Administration Escitalopram Oxalate 10 mg 01/22/25 09:00 01/22/25 08:53 Escitalopram Oxalate 10 Mg Tablet PO 10 mg DAILY SKYLAR Administration Famotidine 20 mg 01/22/25 09:00 01/22/25 08:52 Famotidine 20 Mg Tablet PO 20 mg DAILY SKYLAR Administration Ferrous Sulfate 325 mg 01/22/25 09:00 01/22/25 08:53 Ferrous Sulfate [address] PO 325 mg DAILY SKYLAR Administration Furosemide 20 mg 01/22/25 09:00 01/22/25 08:54 Furosemide 20 Mg Tablet PO 20 mg DAILY SKYLAR Administration Heparin Sodium (Porcine) 5,500 units 01/21/25 11:03 Heparin Sodium 5,000 Units/Ml Vial IV PUSH PRN PRN aPTT less than 55 seconds Heparin Sodium (Porcine) 2,500 units 01/21/25 11:03 Heparin Sodium 5,000 Units/Ml Vial IV PUSH PRN PRN aPTT 55 - 70 seconds Heparin Sodium/Dextrose 25,000 units in 250 mls @ 8 mls/hr 01/21/25 11:05 01/22/25 11:29 Heparin Sodium/D5w 100 Units/Ml IV CONT 800 units/hr .Q24H SKYLAR 8 mls/hr Administration Protocol 800 UNITS/HR Cefazolin Sodium 1 gm in 50 mls @ 100 mls/hr 01/21/25 16:30 01/22/25 10:40 Ancef 1 Gm/Ns 50 Ml IVPB Infused Q8H SKYLAR Infusion Loperamide HCl 4 mg 01/21/25 11:01 Loperamide Hcl 2 Mg Capsule PO Q6H PRN loose stool Losartan Potassium 100 mg 01/22/25 09:00 01/22/25 01:59 Losartan Potassium 100 Mg Tablet PO 100 mg DAILY SKYLAR Administration Melatonin 3 mg 01/21/25 11:01 01/21/25 21:25 Melatonin 3 Mg Tablet PO 3 mg HS PRN Administration sleep Miscellaneous Information 1 each 01/21/25 00:01 01/22/25 11:32 Ozempic Is Nonformulary. What Day Due? Hold While Hospitalized? XX 02/20/25 00:00 Not Given [facility] Miscellaneous Information 1 each 01/21/25 00:01 01/22/25 11:32 Gemtesa Is Nonformulary. Can Patient Use Home Supply? XX 02/20/25 00:00 Not Given [facility] Miscellaneous Information 1 each 01/21/25 00:01 01/22/25 11:32 Ketotifen Eye Drops Are Nonformulary. Can She Use Home Supply Or Hold While Hospitalized? XX 02/20/25 00:00 Not Given [facility] Mupirocin 1 applic 01/21/25 13:00 01/22/25 09:03 Mupirocin 2% Oint 22 Gm Tube TOPICAL Not Given TID SKYLAR Non-Formulary Medication 1 drop 01/21/25 17:00 Ketotifen Fumarate EACH EYE 02/20/25 16:59 BID SKYLAR Non-Formulary Medication 1 mg 01/26/25 09:00 Semaglutide [Ozempic] SUB-Q 02/25/25 08:59 WEEKLY SKYLAR Non-Formulary Medication 75 mg 01/22/25 09:00 Vibegron [Gemtesa] PO 02/21/25 08:59 DAILY SKYLAR Ondansetron HCl 8 mg 01/21/25 11:01 Ondansetron Hcl Odt 4 Mg Tablet PO Q6H PRN nausea and vomiting Polyethylene Glycol 17 gm 01/21/25 11:01 Polyethylene Glycol 3350 17 Gm Powd.Pack PO BID PRN Constipation Potassium Chloride 20 meq 01/22/25 09:00 01/22/25 08:53 Potassium Chloride 20 Meq Er Tablet PO 20 meq DAILY SKYLAR Administration Senna/Docusate Sodium 1 tab 01/21/25 17:00 01/22/25 08:53 Senna/Docusate Sodium Tablet PO 1 tab BID SKYLAR Administration Spironolactone 25 mg 01/22/25 09:00 01/22/25 11:28 Spironolactone 25 Mg Tablet PO 25 mg QAM [facility] Administration Warfarin Sodium 5 mg 01/21/25 17:00 01/21/25 17:10 Warfarin (*Pbkc) 5 Mg Tablet PO 5 mg DAILY@1700 [facility] Administration Labs Labs: Laboratory Results - last 24 hr 01/21/25 01/21/25 01/22/25 19:18 21:56 01:52 WBC RBC Hgb Hct MCV MCH MCHC RDW Plt Count MPV Immature Gran % (Auto) Neut % (Auto) Lymph % (Auto) [place] % (Auto) Eos % (Auto) Baso % (Auto) Lymph # (Auto) [place] # (Auto) Eos # (Auto) Baso # (Auto) Abs Immat Gran (auto) Absolute Neuts (auto) Absolute Nucleated RBC Nucleated RBC % PT INR APTT 97.7 H > 200.0 H* Potassium POC Capillary Glucose 130 H 01/22/25 01/22/25 06:06 09:28 WBC 6.3 RBC 3.17 L Hgb 10.0 L Hct 32.0 L MCV 100.9 H MCH 31.5 MCHC 31.3 L RDW 17.0 H Plt Count 239 MPV 9.0 Immature Gran % (Auto) 3.0 H Neut % (Auto) 69.0 Lymph % (Auto) 11.4 L [place] % (Auto) 10.2 H Eos % (Auto) 5.6 H Baso % (Auto) 0.8 Lymph # (Auto) 0.72 L [place] # (Auto) 0.6 Eos # (Auto) 0.4 H Baso # (Auto) 0.1 Abs Immat Gran (auto) 0.19 H Absolute Neuts (auto) 4.4 Absolute Nucleated RBC 0.020 H Nucleated RBC % 0.3 H PT 20.0 H INR 1.6 APTT 148.4 H 178.1 H* Potassium 4.1 POC Capillary Glucose
[2025-01-22 17:11] LABS: Partial Thromboplastin Time 78.6 Seconds (22.3-36.8)
[2025-01-22] MEDS: WARFARIN (*PBKC) 5 MG TABLET PO (17:16)
[2025-01-22 19:54] LABS: Glucose Point of Care 145 mg/dl (65-105)
[2025-01-22] MEDS: DONEPEZIL HCL 5 MG TABLET PO (22:00)
[2025-01-22] MEDS: ATORVASTATIN 10 MG TABLET PO (22:00)
[2025-01-22 23:02] LABS: Partial Thromboplastin Time 91.3 Seconds (22.3-36.8)
[2025-01-23] VITALS (9 sets, daily range): BP systolic 146–160; BP diastolic 56–66; PULSE 60–67; RESP 20–23; TEMP 36.5–37; O2SAT 95–98
[2025-01-23 04:11] LABS: INR 1.9; Prothrombin Time 22.3 Seconds (11.1-14.7)
[2025-01-23 04:26] LABS: Partial Thromboplastin Time 75.4 Seconds (22.3-36.8)
[2025-01-23] MEDS: SENNA/DOCUSATE SODIUM TABLET 1 TAB PO ×2 (08:33→17:40)
[2025-01-23] MEDS: SPIRONOLACTONE 25 MG TABLET PO (08:33)
[2025-01-23] MEDS: ESCITALOPRAM OXALATE 10 MG TABLET PO (08:33)
[2025-01-23] MEDS: ceFAZolin 1 GM/NS 50 ML 1 GM/50 ML BAG IVPB ×2 (08:33→17:40)
[2025-01-23] MEDS: FUROSEMIDE 20 MG TABLET PO (08:33)
[2025-01-23] MEDS: EMPAGLIFLOZIN 25 MG TABLET BY MOUTH (08:33)
[2025-01-23] MEDS: FAMOTIDINE 20 MG TABLET PO (08:33)
[2025-01-23] MEDS: LOSARTAN POTASSIUM 100 MG TABLET PO (08:33)
[2025-01-23] MEDS: POTASSIUM CHLORIDE 20 MEQ ER TABLET PO (08:33)
[2025-01-23] MEDS: FERROUS SULFATE 325 MG TABLET DR PO (08:43)
[2025-01-23] MEDS: MUPIROCIN 2% OINT 22 GM TUBE 1 APPLIC TOPICAL ×2 (09:00→13:18)
[2025-01-23 12:37] LABS: Hematocrit 34.1 % (37.0-47.0); Hemoglobin 10.6 g/dL (12.0-15.0); Mean Corpuscular HGB Conc 31.1 g/dl (32-36); Mean Corpuscular Hemoglobin 30.9 pg (26-34); Mean Corpuscular Volume 99.4 fl (80-100); Mean Platelet Volume 8.9 fl (7.4-10.4); Platelet Count Result 271 k/mm3 (150-375); Red Blood Count 3.43 M/mm3 (4.2-5.4); Red Cell Distribution Width 17.1 % (11.5-14.5); White Blood Count 7.8 K/mm3 (4.5-10.0)
[2025-01-23 13:13] LABS: Anion Gap 8 mmol/L (4-12); Blood Urea Nitrogen 21 mg/dL (7-17); Calcium 9.4 mg/dL (8.4-10.2); Carbon Dioxide 25 mmol/L (22-30); Chloride 105 mmol/L (98-107); Estimated CRCL calculation 29 ml/min; Estimated Glomerular Filt Rate 35; Glucose 104 mg/dL (65-110); Potassium 4.3 mmol/L (3.4-5.0); Sodium 138 mmol/L (137-145)
--- NOTE | 2025-01-23 13:18 | PM.PNCARD ---
Progress Note: A&P Assessment and Plan (1) H/O mitral valve replacement with mechanical valve: Code(s): Z95.2 - Presence of prosthetic heart valve Status: Acute (2) Pacemaker at end of battery life: Code(s): Z45.010 - Encounter for checking and testing of cardiac pacemaker pulse generator [battery] Status: Acute Plan 79-year-old lady with chronically implanted pacemaker to treat atrial fib with slow ventricular response. Her device is at [facility] and she is admitted today electively following pacemaker generator change. Because of her mechanical mitral valve prosthesis her Coumadin was stopped several days before this procedure. She will then need to be admitted for IV heparin and re loading with Coumadin. Discharge will be anticipated once INR reaches at least 2.0. INR 1.9 today. Anticipate discharge tomorrow if INR 2.0 or greater. Subjective Date/time seen: 01/23/25 13:18 Interval history: Cardiology follow up visit Feeling well s/p pacemaker generator change. Has some fatigue. No shortness of breath or chest pain. 01/23/2025: Continues to feel well today and does not have any specific complaints. Review of Systems Constitutional: Constitutional: Reports no additional constitutional complaints and Reports fatigue Eyes: Eyes: Reports no additional eye complaints ENT: Reports system reviewed and no additional complaints, except as documented Cardiovascular: Cardiovascular: Reports no additional cardiovascular complaints Respiratory: Respiratory: Reports no additional respiratory complaints Gastrointestinal: Gastrointestinal: Reports no additional gastrointestinal complaints Musculoskeletal: Musculoskeletal: Reports back pain Integumentary/Breasts: Skin/Breast: Reports system reviewed and no additional complaints, except as docu Neurologic: Reports system reviewed and no additional complaints, except as documented Endocrine: Endocrine: Reports fatigue Exam Const: General: comfortable and no acute distress Other: Pleasant elderly lady no distress HENMT: Mouth: Yes moist mucous membranes Eyes: Sclera: sclerae normal Neck: Neck: supple and no JVD Chest: Other: L pectoral incision covered with sterile dressing which is clean, dry, intact. No hematoma. Resp: Effort & Inspection: normal respiratory effort Auscultation: clear to auscultation bilaterally Cardio: Rate: regular rate Rhythm: regular rhythm Other: paced rhythm, normal crisp mitral valve closure sound noted GI: Auscultation: normal bowel sounds Skin: General skin exam: normal color Neuro: Other: alert and oriented x3 Extrem: General: normal to inspection Objective Data Vital Signs Vital Signs: Vital Signs - 24 hr 01/22/25 14:00 01/22/25 16:00 01/22/25 16:00 Temperature 37.0 C Pulse Rate 60 60 60 Respiratory Rate 18 Blood Pressure 163/66 H Pulse Oximetry 99 Oxygen Delivery 01/22/25 16:00 01/22/25 18:00 01/22/25 18:00 Temperature Pulse Rate 60 60 60 Respiratory Rate 18 Blood Pressure 159/55 H Pulse Oximetry 99 Oxygen Delivery Room Air 01/22/25 20:00 01/22/25 20:00 01/22/25 20:17 Temperature 37.0 C Pulse Rate 66 60 66 Respiratory Rate 20 20 Blood Pressure 160/58 H Pulse Oximetry 96 96 Oxygen Delivery Room Air 01/22/25 22:00 01/23/25 00:00 01/23/25 00:00 Temperature 36.9 C Pulse Rate 60 60 60 Respiratory Rate 20 Blood Pressure 160/58 H Pulse Oximetry 95 Oxygen Delivery 01/23/25 00:00 01/23/25 02:00 01/23/25 04:00 Temperature Pulse Rate 66 60 60 Respiratory Rate 20 Blood Pressure Pulse Oximetry 96 Oxygen Delivery Room Air 01/23/25 04:00 01/23/25 04:00 01/23/25 05:47 Temperature 37.0 C Pulse Rate 66 60 60 Respiratory Rate 20 20 Blood Pressure 152/66 H Pulse Oximetry 96 96 Oxygen Delivery Room Air 01/23/25 08:00 Temperature 36.5 C Pulse Rate 60 Respiratory Rate 23 H Blood Pressure 156/64 H Pulse Oximetry 97 Oxygen Delivery Intake/Output Intake/Output: Intake & Output 01/20/25 01/21/25 01/22/25 01/23/25 23:59 23:59 23:59 23:59 Intake Total 290 1382.1 320.3 Output Total 1250 700 Balance 290 132.1 -379.7 Meds/Results Medications: Active Medications Generic Name Dose Route Start Last Admin Trade Name Freq PRN Reason Stop Dose Admin Acetaminophen 500 mg 01/21/25 11:01 Acetaminophen 500 Mg Tablet PO Q6H PRN pain 1-3 Hydrocodone Bitart/Acetaminophen 1 tab 01/21/25 11:01 Hydrocodone/Acetaminophen (*Crx) 5-325 Mg Tablet PO Q6H PRN pain 4-6 Albuterol 1 puff 01/21/25 11:01 Albuterol Sulfate (*Sp) Aerosol 1 Puff INHALATION Q4H PRN shortness of breath or wheezing Atorvastatin Calcium 10 mg 01/21/25 21:00 01/22/25 22:00 Atorvastatin 10 Mg Tablet PO 10 mg HS SKYLAR Administration Donepezil HCl 5 mg 01/21/25 21:00 01/22/25 22:00 Donepezil Hcl 5 Mg Tablet PO 5 mg HS SKYLAR Administration Empagliflozin 25 mg 01/22/25 09:00 01/23/25 08:33 Empagliflozin 25 Mg Tablet BY MOUTH 25 mg DAILY SKYLAR Administration Escitalopram Oxalate 10 mg 01/22/25 09:00 01/23/25 08:33 Escitalopram Oxalate 10 Mg Tablet PO 10 mg DAILY SKYLAR Administration Famotidine 20 mg 01/22/25 09:00 01/23/25 08:33 Famotidine 20 Mg Tablet PO 20 mg DAILY SKYLAR Administration Ferrous Sulfate 325 mg 01/22/25 09:00 01/23/25 08:43 Ferrous Sulfate [address] PO 325 mg DAILY SKYLAR Administration Furosemide 20 mg 01/22/25 09:00 01/23/25 08:33 Furosemide 20 Mg Tablet PO 20 mg DAILY SKYLAR Administration Heparin Sodium (Porcine) 5,500 units 01/21/25 11:03 Heparin Sodium 5,000 Units/Ml Vial IV PUSH PRN PRN aPTT less than 55 seconds Heparin Sodium (Porcine) 2,500 units 01/21/25 11:03 Heparin Sodium 5,000 Units/Ml Vial IV PUSH PRN PRN aPTT 55 - 70 seconds Heparin Sodium/Dextrose 25,000 units in 250 mls @ 8 mls/hr 01/21/25 11:05 01/23/25 05:17 Heparin Sodium/D5w 100 Units/Ml IV CONT 800 units/hr .Q24H SKYLAR 8 mls/hr Titration Protocol 800 UNITS/HR Cefazolin Sodium 1 gm in 50 mls @ 100 mls/hr 01/21/25 16:30 01/23/25 09:03 Ancef 1 Gm/Ns 50 Ml IVPB Infused Q8H SKYLAR Infusion Loperamide HCl 4 mg 01/21/25 11:01 Loperamide Hcl 2 Mg Capsule PO Q6H PRN loose stool Losartan Potassium 100 mg 01/22/25 09:00 01/23/25 08:33 Losartan Potassium 100 Mg Tablet PO 100 mg DAILY SKYLAR Administration Melatonin 3 mg 01/21/25 11:01 01/21/25 21:25 Melatonin 3 Mg Tablet PO 3 mg HS PRN Administration sleep Miscellaneous Information 1 each 01/21/25 00:01 01/22/25 11:32 Ozempic Is Nonformulary. What Day Due? Hold While Hospitalized? XX 02/20/25 00:00 Not Given CLARIFY SKYLAR Miscellaneous Information 1 each 01/21/25 00:01 01/22/25 11:32 Gemtesa Is Nonformulary. Can Patient Use Home Supply? XX 02/20/25 00:00 Not Given CLARIFY SKYLAR Miscellaneous Information 1 each 01/21/25 00:01 01/22/25 11:32 Ketotifen Eye Drops Are Nonformulary. Can She Use Home Supply Or Hold While Hospitalized? XX 02/20/25 00:00 Not Given CLARIFY [facility] Mupirocin 1 applic 01/21/25 13:00 01/23/25 09:00 Mupirocin 2% Oint 22 Gm Tube TOPICAL 1 applic TID SKYLAR Administration Non-Formulary Medication 1 drop 01/21/25 17:00 Ketotifen Fumarate EACH EYE 02/20/25 16:59 BID SKYLAR Non-Formulary Medication 1 mg 01/26/25 09:00 Semaglutide [Ozempic] SUB-Q 02/25/25 08:59 WEEKLY SKYLAR Non-Formulary Medication 75 mg 01/22/25 09:00 Vibegron [Gemtesa] PO 02/21/25 08:59 DAILY [facility] Ondansetron HCl 8 mg 01/21/25 11:01 Ondansetron Hcl Odt 4 Mg Tablet PO Q6H PRN nausea and vomiting Polyethylene Glycol 17 gm 01/21/25 11:01 Polyethylene Glycol 3350 17 Gm Powd.Pack PO BID PRN Constipation Potassium Chloride 20 meq 01/22/25 09:00 01/23/25 08:33 Potassium Chloride 20 Meq Er Tablet PO 20 meq DAILY SKYLAR Administration Senna/Docusate Sodium 1 tab 01/21/25 17:00 01/23/25 08:33 Senna/Docusate Sodium Tablet PO 1 tab BID SKYLAR Administration Spironolactone 25 mg 01/22/25 09:00 01/23/25 08:33 Spironolactone 25 Mg Tablet PO 25 mg QAM SKYLAR Administration Warfarin Sodium 5 mg 01/21/25 17:00 01/22/25 17:16 Warfarin (*Pbkc) 5 Mg Tablet PO 5 mg DAILY@1700 [facility] Administration Labs Labs: Laboratory Results - last 24 hr 01/22/25 01/22/25 01/22/25 16:46 19:49 22:45 WBC RBC Hgb Hct MCV MCH MCHC RDW Plt Count MPV PT INR APTT 78.6 H 91.3 H Sodium Potassium Chloride Carbon Dioxide Anion Gap BUN Creatinine Estim Creat Clear Calc Estimated GFR Glucose POC Capillary Glucose 145 H Calcium 01/23/25 01/23/25 03:32 12:32 WBC 7.8 RBC 3.43 L Hgb 10.6 L Hct 34.1 L MCV 99.4 MCH 30.9 MCHC 31.1 L RDW 17.1 H Plt Count 271 MPV 8.9 PT 22.3 H INR 1.9 APTT 75.4 H Sodium 138 Potassium 4.3 Chloride 105 Carbon Dioxide 25 Anion Gap 8 BUN 21 H Creatinine 1.43 H Estim Creat Clear Calc 29 Estimated GFR 35 L Glucose 104 POC Capillary Glucose Calcium 9.4
[2025-01-23 14:26] LABS: INR 1.9; Prothrombin Time 22.8 Seconds (11.1-14.7)
--- NOTE | 2025-01-23 16:13 | PC.NURSE ---
This patient, Kay Winn, was transferred to [ 341] on 01/23/25 at 1613. Personal belongings sent with patient. Report given to [rd ]. Appropriate documentation sent with patient.
[2025-01-23] MEDS: WARFARIN (*PBKC) 5 MG TABLET PO (18:00)
[2025-01-23] MEDS: HEPARIN SOD/D5W 100 UNITS/ML 25,000 UNITS/250 ML BAG 8 UNITS IV CONT (18:01)
[2025-01-23] MEDS: DONEPEZIL HCL 5 MG TABLET PO (22:02)
[2025-01-23] MEDS: ATORVASTATIN 10 MG TABLET PO (22:02)
[2025-01-24] VITALS (7 sets, daily range): BP systolic 125–154; BP diastolic 59–68; PULSE 60–79; RESP 16–20; TEMP 36.3–36.9; O2SAT 97–100
[2025-01-24] MEDS: ceFAZolin 1 GM/NS 50 ML 1 GM/50 ML BAG IVPB (00:22)
[2025-01-24 06:15] LABS: INR 2.8; Prothrombin Time 30.1 Seconds (11.1-14.7)
[2025-01-24 06:17] LABS: Partial Thromboplastin Time 83.6 Seconds (22.3-36.8)
--- NOTE | 2025-01-24 08:37 | PM.IMPN ---
Progress Note: A&P Assessment and Plan (1) H/O mitral valve replacement with mechanical valve: Code(s): Z95.2 - Presence of prosthetic heart valve Status: Acute (2) Pacemaker at end of battery life: Code(s): Z45.010 - Encounter for checking and testing of cardiac pacemaker pulse generator [battery] Status: Acute Assessment and Plan: 79-year-old lady with chronically implanted pacemaker to treat atrial fib with slow ventricular response. Her device is at [facility] and she is admitted today electively for pacemaker generator change. Because of her mechanical mitral valve prosthesis her Coumadin was stopped several days before this procedure. She will then need to be admitted for IV heparin and re loading with Coumadin. Discharge will be anticipated once INR reaches at least 2.0. Plan 79-year-old lady with chronically implanted pacemaker to treat atrial fib with slow ventricular response. Her device is at [facility] and she is admitted today electively following pacemaker generator change. Because of her mechanical mitral valve prosthesis her Coumadin was stopped several days before this procedure. She will then need to be admitted for IV heparin and re loading with Coumadin. Discharge will be anticipated once INR reaches at least 2.0. Today INR is 2.8 01/24: Discontinue Heparin drip since INR is 2.8 due to the concerns of over anticoagulation.Continue Warfarin 5 mg PO QD. As per cardiology patient will be discharged today Subjective Date/time seen: 01/24/25 08:37 Interval history: 79-year-old woman with a history of mitral valve stenosis and a chronic atrial fib with slow ventricular response. She has a Medtronic pacemaker device which on routine follow-up has been found to be at [facility]. She takes warfarin for her mechanical mitral valve prosthesis. This was performed at 8:06 p.m. to treat significant mitral valve stenosis. She is admitted today for pacemaker generator change. If the patient is pacemaker dependent after interrogation we will anticipate placing a temporary transvenous lead to protect the rhythm while we performed generator change procedure. She has no other complaints today and offers no symptoms. Her significant comorbidities include hypertension, diabetes, dyslipidemia, COPD and history of sleep apnea for which she uses CPAP. Previous surgical history other than the mitral valve replacement includes total abdominal hysterectomy, and cataract surgery. 01/24: Discontinue Heparin drip since INR is 2.8 due to the concerns of over anticoagulation.Continue Warfarin 5 mg PO QD. As per cardiology patient will be discharged today Review of Systems Constitutional: Constitutional: Reports no additional constitutional complaints and Reports fatigue Eyes: Eyes: Reports no additional eye complaints ENT: Reports system reviewed and no additional complaints, except as documented Cardiovascular: Cardiovascular: Reports no additional cardiovascular complaints Respiratory: Respiratory: Reports no additional respiratory complaints Gastrointestinal: Gastrointestinal: Reports no additional gastrointestinal complaints Musculoskeletal: Musculoskeletal: Reports back pain Integumentary/Breasts: Skin/Breast: Reports system reviewed and no additional complaints, except as docu Neurologic: Reports system reviewed and no additional complaints, except as documented Endocrine: Endocrine: Reports fatigue Exam Const: General: comfortable and no acute distress Other: Pleasant elderly lady no distress HENMT: Mouth: Yes moist mucous membranes Eyes: Sclera: sclerae normal Neck: Neck: supple and no JVD Chest: Other: L pectoral incision covered with sterile dressing which is clean, dry, intact. No hematoma. Resp: Effort & Inspection: normal respiratory effort Auscultation: clear to auscultation bilaterally Cardio: Rate: regular rate Rhythm: regular rhythm Other: paced rhythm, normal crisp mitral valve closure sound noted GI: Auscultation: normal bowel sounds Skin: General skin exam: normal color Neuro: Other: alert and oriented x3 Extrem: General: normal to inspection Objective Data Vital Signs Vital Signs: Vital Signs - 24 hr 01/23/25 10:00 01/23/25 12:00 01/23/25 12:00 Temperature 98.5 F Pulse Rate 60 60 67 Respiratory Rate 23 H Blood Pressure 157/56 H Pulse Oximetry 98 Oxygen Delivery 01/23/25 16:00 01/23/25 20:00 01/23/25 20:00 Temperature 98.5 F Pulse Rate 63 61 61 Respiratory Rate 22 H Blood Pressure 146/63 H Pulse Oximetry 98 Oxygen Delivery 01/23/25 20:00 01/24/25 00:00 01/24/25 00:00 Temperature 97.6 F Pulse Rate 60 61 Respiratory Rate 16 Blood Pressure 149/61 H Pulse Oximetry 97 Oxygen Delivery Room Air 01/24/25 04:00 01/24/25 05:10 01/24/25 08:00 Temperature 97.4 F L 97.5 F L Pulse Rate 60 79 60 Respiratory Rate 20 18 Blood Pressure 154/67 H 125/68 Pulse Oximetry 97 100 Oxygen Delivery Intake/Output Intake/Output: Intake & Output 02/26/25 02/27/25 02/28/25 03/01/25 23:59 23:59 23:59 23:59 Intake Total 290 1382.1 712.2 400.4 Output Total 1250 700 750 Balance 290 132.1 12.2 -349.6 Meds/Results Medications: Active Medications Generic Name Dose Route Start Last Admin Trade Name Freq PRN Reason Stop Dose Admin Acetaminophen 500 mg 01/21/25 11:01 Acetaminophen 500 Mg Tablet PO Q6H PRN pain 1-3 Hydrocodone Bitart/Acetaminophen 1 tab 01/21/25 11:01 Hydrocodone/Acetaminophen (*Crx) 5-325 Mg Tablet PO Q6H PRN pain 4-6 Albuterol 1 puff 01/21/25 11:01 Albuterol Sulfate (*Sp) Aerosol 1 Puff INHALATION Q4H PRN shortness of breath or wheezing Atorvastatin Calcium 10 mg 01/21/25 21:00 01/23/25 22:02 Atorvastatin 10 Mg Tablet PO 10 mg HS SKYLAR Administration Donepezil HCl 5 mg 01/21/25 21:00 01/23/25 22:02 Donepezil Hcl 5 Mg Tablet PO 5 mg HS SKYLAR Administration Empagliflozin 25 mg 01/22/25 09:00 01/23/25 08:33 Empagliflozin 25 Mg Tablet BY MOUTH 25 mg DAILY SKYLAR Administration Escitalopram Oxalate 10 mg 01/22/25 09:00 01/23/25 08:33 Escitalopram Oxalate 10 Mg Tablet PO 10 mg DAILY SKYLAR Administration Famotidine 20 mg 01/22/25 09:00 01/23/25 08:33 Famotidine 20 Mg Tablet PO 20 mg DAILY SKYLAR Administration Ferrous Sulfate 325 mg 01/22/25 09:00 01/23/25 08:43 Ferrous Sulfate [address] PO 325 mg DAILY SKYLAR Administration Furosemide 20 mg 01/22/25 09:00 01/23/25 08:33 Furosemide 20 Mg Tablet PO 20 mg DAILY SKYLAR Administration Heparin Sodium (Porcine) 5,500 units 01/21/25 11:03 Heparin Sodium 5,000 Units/Ml Vial IV PUSH PRN PRN aPTT less than 55 seconds Heparin Sodium (Porcine) 2,500 units 01/21/25 11:03 Heparin Sodium 5,000 Units/Ml Vial IV PUSH PRN PRN aPTT 55 - 70 seconds Heparin Sodium/Dextrose 25,000 units in 250 mls @ 8 mls/hr 01/21/25 11:05 01/24/25 06:34 Heparin Sodium/D5w 100 Units/Ml IV CONT 800 units/hr .Q24H SKYLAR 8 mls/hr Titration Protocol 800 UNITS/HR Cefazolin Sodium 1 gm in 50 mls @ 100 mls/hr 01/21/25 16:30 01/24/25 00:52 Ancef 1 Gm/Ns 50 Ml IVPB Infused Q8H SKYLAR Infusion Loperamide HCl 4 mg 01/21/25 11:01 Loperamide Hcl 2 Mg Capsule PO Q6H PRN loose stool Losartan Potassium 100 mg 01/22/25 09:00 01/23/25 08:33 Losartan Potassium 100 Mg Tablet PO 100 mg DAILY [facility] Administration Melatonin 3 mg 01/21/25 11:01 01/21/25 21:25 Melatonin 3 Mg Tablet PO 3 mg HS PRN Administration sleep Mupirocin 1 applic 01/24/25 09:00 Mupirocin 2% Oint 22 Gm Tube TOPICAL DAILY [facility] Ondansetron HCl 8 mg 01/21/25 11:01 Ondansetron Hcl Odt 4 Mg Tablet PO Q6H PRN nausea and vomiting Polyethylene Glycol 17 gm 01/21/25 11:01 Polyethylene Glycol 3350 17 Gm Powd.Pack PO BID PRN Constipation Potassium Chloride 20 meq 01/22/25 09:00 01/23/25 08:33 Potassium Chloride 20 Meq Er Tablet PO 20 meq DAILY [facility] Administration Senna/Docusate Sodium 1 tab 01/21/25 17:00 01/23/25 17:40 Senna/Docusate Sodium Tablet PO 1 tab BID [facility] Administration Spironolactone 25 mg 01/22/25 09:00 01/23/25 08:33 Spironolactone 25 Mg Tablet PO 25 mg QAM [facility] Administration Warfarin Sodium 5 mg 01/21/25 17:00 01/23/25 18:00 Warfarin (*Pbkc) 5 Mg Tablet PO 5 mg DAILY@1700 [facility] Administration Labs Labs: Laboratory Results - last 24 hr 01/23/25 01/23/25 01/24/25 12:32 13:56 05:37 WBC 7.8 RBC 3.43 L Hgb 10.6 L Hct 34.1 L MCV 99.4 MCH 30.9 MCHC 31.1 L RDW 17.1 H Plt Count 271 MPV 8.9 PT 22.8 H 30.1 H D INR 1.9 2.8 APTT 83.6 H Sodium 138 Potassium 4.3 4.0 Chloride 105 Carbon Dioxide 25 Anion Gap 8 BUN 21 H Creatinine 1.43 H Estim Creat Clear Calc 29 Estimated GFR 35 L Glucose 104 Calcium 9.4 Hospitalist [facility] Advance Care Plan I have confirmed that the patient's Advanced Care Plan is present, code status is documented, or surrogate decision maker is listed in patient medical record.: Yes Medication Reconciliation I have utilized all available resources to obtain, update and review the patients current medications (includes all prescriptions, OTC, herbals, cannabis, and nutritional supplements).: Yes
[2025-01-24] MEDS: SENNA/DOCUSATE SODIUM TABLET 1 TAB PO ×2 (09:51→17:30)
[2025-01-24] MEDS: ESCITALOPRAM OXALATE 10 MG TABLET PO (09:51)
[2025-01-24] MEDS: FUROSEMIDE 20 MG TABLET PO (09:51)
[2025-01-24] MEDS: EMPAGLIFLOZIN 25 MG TABLET BY MOUTH (09:51)
[2025-01-24] MEDS: LOSARTAN POTASSIUM 100 MG TABLET PO (09:51)
[2025-01-24] MEDS: FERROUS SULFATE 325 MG TABLET DR PO (09:51)
[2025-01-24] MEDS: SPIRONOLACTONE 25 MG TABLET PO (09:52)
[2025-01-24] MEDS: FAMOTIDINE 20 MG TABLET PO (09:52)
[2025-01-24] MEDS: POTASSIUM CHLORIDE 20 MEQ ER TABLET PO (09:52)
--- NOTE | 2025-01-24 11:12 | PM.DS ---
DS: Admitting Diagnosis Discharge Date 01/24/2025 Admitting Diagnosis Medtronic pacemaker device at [facility] Mechanical mitral valve replacement for mitral stenosis in 2006 on Coumadin anticoagulation DS: Discharge Diagnosis Discharge Diagnosis (1) H/O mitral valve replacement with mechanical valve: Code(s): Z95.2 - Presence of prosthetic heart valve Status: Acute (2) Pacemaker at end of battery life: Code(s): Z45.010 - Encounter for checking and testing of cardiac pacemaker pulse generator [battery] Status: Acute Plan Assessment: Atrial fibrillation with slow ventricular response status post Medtronic permanent pacemaker Medtronic pacemaker at [facility] status post generator change procedure by Dr. Baum Mechanical mitral valve replacement for mitral stenosis in 2005 on chronic anticoagulation with Coumadin requiring IV heparin bridging while Coumadin was held for generator change procedure Plan: Follow activity instructions post generator change procedure Continue Coumadin with a target INR greater than 2 for mechanical mitral valve Continue other home cardiac medications Follow-up with cardiology in 4 weeks Discharge to rehab facility today in stable condition DS: Summary Hospital Course Reason for hospitalization: Generator change procedure for Medtronic pacemaker at [facility] Mechanical mitral valve on chronic anticoagulation with Coumadin requiring bridging with IV heparin while Coumadin being held for procedure Hospital Course: 79-year-old woman with history of mechanical mitral valve replacement for mitral stenosis in 2005 on Coumadin, chronic atrial fibrillation with slow ventricular response s/p Medtronic pacemaker device which is at [facility], hypertension, diabetes, dyslipidemia, COPD and history of sleep apnea for which she uses CPAP was electively admitted to the hospital for pacemaker generator change with Dr. Baum. Because of her mechanical mitral valve prosthesis her Coumadin was stopped several days before this procedure and she was started on IV heparin. She underwent generator change procedure without any complications. Post procedure she was restarted on Coumadin with heparin IV used for bridging. She is being discharged today as her INR is greater than 2. She is doing well. No chest pain, shortness of breath, dizziness, lightheadedness, palpitations, nausea, emesis, fever, chills, abdominal pain, headache, focal weakness. Time Spent with Patient Time attestation: Total time spent providing and/or coordinating discharge services: 40 minutes Exam Narrative: General: Alert oriented x3, no acute distress Neck: Supple, no JVD Chest: Bilaterally clear to auscultation, no rales or rhonchi Cardiac: S1, S2 +, regular rate, regular rhythm, no murmurs or rubs Extremities: No pedal edema, no skin rash Neurologic: Alert and oriented x3, no focal neurological deficits DS: Data Data Completed and Pending Labs on day of discharge: Labs from last 24 hours 01/24/25 01/23/25 01/23/25 05:37 13:56 12:32 WBC 7.8 RBC 3.43 L Hgb 10.6 L Hct 34.1 L MCV 99.4 MCH 30.9 MCHC 31.1 L RDW 17.1 H Plt Count 271 MPV 8.9 PT 30.1 H D 22.8 H INR 2.8 1.9 APTT 83.6 H Sodium 138 Potassium 4.0 4.3 Chloride 105 Carbon Dioxide 25 Anion Gap 8 BUN 21 H Creatinine 1.43 H Estim Creat Clear Calc 29 Estimated GFR 35 L Glucose 104 Calcium 9.4 Procedures/Treatments: Medtronic pacemaker at [facility] status post generator change by Dr. Flores Discharge Plan Discharge Attending physician on discharge: Merlene Bae Consulting providers: Maurice Malik Discharging Clinician: Merlene Bae Anticipated Discharge Date/Time: 01/24/25 11:05 Patient Disposition: Other Activity: may shower Diet: heart healthy Wound Care Instructions: other - see discharge instructions Discharge Instructions: Do not sleep on the left side for 2 weeks Do not bear weight >10 pounds in the left arm for 2 weeks Patient Instructions: Antibiotic Form Patient Language: Mohawk Stand Alone Forms: General Discharge Information Discharge Medications: Continued carvedilol [Coreg] 25 mg Tablet 3.125 mg PO BID atorvastatin [Lipitor] 10 mg Tablet 10 mg PO HS Ozempic 1 mg/dose (2 mg/1.5 mL) Pen Injector 1 mg SUBCUT WEEKLY Rx Instructions: on Sundays Breztri Aerosphere 160-9-4.8 mcg/actuation Hfa Aerosol Inhaler 2 inh INHALATION BID warfarin [Jantoven] 2 mg tablet 2 mg PO HS escitalopram oxalate 10 mg Tablet 10 mg PO DAILY Qty: 30 0RF ropinirole 1 mg tablet 1 mg PO HS donepezil 5 mg tablet 5 mg PO HS fluticasone propionate 50 mcg/actuation spray,suspension 1 spray INTRANASAL BID dapagliflozin propanediol [Farxiga] 10 mg tablet 10 mg PO DAILY azelastine 137 mcg (0.1 %) aerosol,spray 2 spray INTRANASAL BID loperamide [Imodium A-D] 2 mg capsule 4 mg PO Q6H PRN (Reason: loose stool) melatonin 3 mg capsule 3 mg PO HS PRN (Reason: sleep) ferrous sulfate [Jagjit-Time] 325 mg (65 mg iron) tablet 325 mg PO DAILY Gemtesa 75 mg tablet 75 mg PO DAILY hydrocodone-acetaminophen 5-325 mg tablet 1 tablet PO Q6H PRN (Reason: pain) acetaminophen 500 mg capsule 500 mg PO Q6H PRN (Reason: pain) albuterol sulfate 90 mcg/actuation HFA aerosol inhaler 1 puff INHALATION Q4H PRN (Reason: shortness of breath or wheezing) potassium chloride [K-Tab] 20 mEq tablet extended release 20 meq PO DAILY ondansetron 4 mg tablet,disintegrating 8 mg PO Q6H PRN (Reason: nausea and vomiting) ketotifen fumarate 0.025 % (0.035 %) Drops 1 drp EACH EYE BID Qty: 30 0RF sennosides-docusate sodium [Senokot-S] 8.6-50 mg Tablet 1 tab PO BID Qty: 30 0RF spironolactone 25 mg Tablet 25 mg PO QAM Qty: 30 0RF famotidine 20 mg Tablet 20 mg PO DAILY Qty: 30 0RF mupirocin 2 % Ointment 1 applic topical TID Qty: 15 0RF furosemide 20 mg Tablet 20 mg PO DAILY Qty: 30 0RF losartan 100 mg Tablet 100 mg PO DAILY Qty: 30 0RF polyethylene glycol 3350 [Miralax] 17 gram Powder In Packet 17 g PO BID PRN (Reason: Constipation) Qty: 30 0RF nystatin 100,000 unit/gram Powder 1 applic topical Q12HR Qty: 1 0RF Date of admission: 01/21/25 11:18 Primary Care Provider: Jake,Ivy Goldman Admitting Provider: Paramjit Baum Attending physician on admission: Paramjit Baum Condition: Stable
[2025-01-24 13:13] LABS: SARS-CoV-2 RNA PCR Negative (Negative)
[2025-01-24] MEDS: WARFARIN (*PBKC) 5 MG TABLET PO (17:30)
== END 2025-01-24 19:15 | DRG 259 ==
LOC: ANHCPC 14:48 → ANHICU 01-22 06:38 → ANH3MED 01-24 11:06 → ANHICU 01-26 16:25
PROVIDERS: General Practice; Nurse Practitioner; Admitting Provider Specialist; PCP Nurse Practitioner; Visit Provider Internal Medicine Interventional Cardiology
PROC: 0JPT0PZ Removal of Cardiac Rhythm Related Device from Trunk Subcutaneous Tissue and Fascia, Open Approach (ICD-10-PCS; principal; 2025-01-21 10:00)
DX: Z45.010 Encounter for checking and testing of cardiac pacemaker pulse generator [battery] (principal); I13.0 Hypertensive heart and chronic kidney disease with heart failure and stage 1 through stage 4 chronic kidney disease, or unspecified chronic kidney disease; I48.20 Chronic atrial fibrillation, unspecified; I50.9 Heart failure, unspecified; J44.9 Chronic obstructive pulmonary disease, unspecified; N18.30 Chronic kidney disease, stage 3 unspecified; E53.8 Deficiency of other specified B group vitamins; E78.5 Hyperlipidemia, unspecified; E11.22 Type 2 diabetes mellitus with diabetic chronic kidney disease; M81.0 Age-related osteoporosis without current pathological fracture; G47.33 Obstructive sleep apnea (adult) (pediatric); Z11.52 Encounter for screening for COVID-19; Z95.2 Presence of prosthetic heart valve; Z79.01 Long term (current) use of anticoagulants
CPT/HCPCS: 33227; 36415; 80048; 82948; 84132; 85025; 85027; 85610; 85730; 87635; A9270; C1786; J0690; J1644; J2003; J2250; J3010; J7030; J7040

== ENCOUNTER 2025-04-30 14:41 | Emergency (ER) | payer MEDICARE, SELFPAY ==
[2025-04-30] VITALS (7 sets, daily range): BP systolic 128–181; BP diastolic 68–115; PULSE 60–71; RESP 16–24; TEMP 36.5–36.7; O2SAT 100
--- NOTE | ~2025-04-30 | XR_ITS ---
XR chest 1V portable 04/30/2025 15:29 Indication: Shortness of breath Procedure: AP portable chest Comparison: Comparison to multiple prior studies sequentially, with oldest reviewed study dated 05/24. Findings: Small right pleural effusion with underlying compressive atelectasis. Mild interstitial karoline ma. Cardiomegaly. Status post median sternotomy for CABG. There is a prosthetic heart valve. No pneum othorax. No acute osseous abnormality. Impression: 1: Cardiomegaly with mild interstitial edema. 2: Small right pleural effusion. Reviewed, dictated and finalized at location A. Impression: 1: Cardiomegaly with mild interstitial edema. 2: Small right pleural effusion.
--- NOTE | ~2025-04-30 | US_ITS ---
LEFT UPPER EXTREMITY VENOUS ULTRASOUND Ordering provider: Yosuif Espinosa MD History: . Y . Comparison: None. FINDINGS: --JUGULAR: Patent and free of thrombus. Normal compressibility, phasic flow and augmentation. --SUBCLAVIAN: Patent and free of thrombus. Normal compressibility, phasic flow and augmentation. --AXILLARY: Patent and free of thrombus. Normal compressibility, phasic flow and augmentation. --BRACHIAL: Patent and free of thrombus. Normal compressibility, phasic flow and augmentation. --CEPHALIC: Patent and free of thrombus. Normal compressibility, phasic flow and augmentation. --BASILIC: Patent and free of thrombus. Normal compressibility, phasic flow and augmentation. --RADIAL: Patent and free of thrombus. Normal compressibility, phasic flow and augmentation. --ULNAR: Patent and free of thrombus. Normal compressibility, phasic flow and augmentation. IMPRESSION: Negative left upper extremity venous US. No deep vein thrombosis. Reviewed, dictated and finalized at location A.
--- NOTE | 2025-04-30 14:46 | ECG_ITS ---
Test Date: 2025-04-30 14:52:37 Measurements Intervals [place] Rate: 68 P: 0 UT: 0 QRS: 6 QRSD: 164 T: 152 QT: 458 QTc: 488 Interpretive Statements ELECTRONIC VENTRICULAR PACEMAKER NO FURTHER INTERPRETATION IS POSSIBLE ATYPICAL ECG Compared to ECG 01/21/2025 14:21:15 No significant changes Electronically Signed On 04-30-2025 16:02:46 CDT by Vince Hernandez D.O.
[2025-04-30 15:08] LABS: Basophils Percent Auto 0.6 % (0.2-1.2); Eosinophils Absolute Auto 0.1 K/mm3 (0-0.3); Eosinophils Percent Auto 2.1 % (0-4.4); Hematocrit 44.4 % (37.0-47.0); Hemoglobin 12.9 g/dL (12.0-15.0); Immature Granulocyte Absolute 0.03 K/mm3 (0.00-0.031); Immature Granulocyte Percent A 0.5 % (0-0.5); Lymphocytes Percent Auto 9.6 % (18.3-44.2); Mean Corpuscular HGB Conc 29.1 g/dl (32-36); Mean Corpuscular Hemoglobin 28.8 pg (26-34); Mean Corpuscular Volume 99.1 fl (80-100); Mean Platelet Volume 9.8 fl (7.4-10.4); Monocytes Absolute Auto 0.8 K/mm3 (0.1-0.6); Monocytes Percent Auto 12.5 % (2.6-8.5); Neutrophils Absolute Auto 4.7 K/mm3 (1.3-6.7); Neutrophils Percent Auto 74.7 % (45.5-73.1); Platelet Count Result 143 k/mm3 (150-375); Red Blood Count 4.48 M/mm3 (4.2-5.4); Red Cell Distribution Width 17.7 % (11.5-14.5); White Blood Count 6.3 K/mm3 (4.5-10.0)
[2025-04-30 15:23] LABS: Hypochromasia 1+; Ovalocytes 1+; Platelet Estimate Adequate (Adequate)
[2025-04-30 15:24] LABS: Schistocytes None Seen
[2025-04-30 15:25] LABS: Alanine Aminotransferase 17 U/L (6-35); Albumin Level 3.1 g/dL (3.5-5.1); Alkaline Phosphatase 93 U/L (38-126); Anion Gap 5 mmol/L (4-12); Aspartate Amino Transferase 29 U/L (14-36); Bilirubin,Total 0.9 mg/dL (0.2-1.3); Blood Urea Nitrogen 32 mg/dL (7-17); Calcium 10.6 mg/dL (8.4-10.2); Carbon Dioxide 26 mmol/L (22-30); Chloride 110 mmol/L (98-107); Estimated CRCL calculation 32 ml/min; Estimated Glomerular Filt Rate 33; Glucose 139 mg/dL (65-110); Potassium 4.4 mmol/L (3.4-5.0); Sodium 141 mmol/L (137-145); Total Protein 6.3 g/dL (6.3-8.2)
[2025-04-30 15:44] LABS: Influenza A QL RT-PCR Negative (Negative); Influenza B QL RT-PCR Negative (Negative); RSV RNA, RT-PCR Negative (Negative); SARS-CoV-2 RNA PCR Negative (Negative)
--- NOTE | 2025-04-30 15:50 | ED.GENADULT ---
HPI - General Adult General Chief complaint: Shortness of Breath/Dyspnea Stated complaint: abd pain Time Seen by Provider: 04/30/25 15:11 History of Present Illness HPI narrative: 79-year-old female presented to the emergency department for evaluation for multiple complaints. Patient initially was thought to be in respiratory distress but patient denies any current shortness of breath and patient was not significantly hypoxic. Patient was on room air at time evaluation, and had no hypoxia. Patient was also complaining of of abdominal pain to EMS but at time of my evaluation patient denies any abdominal pain. Patient does complain left arm swelling that is been ongoing since yesterday. Patient does have some mild edema to her left arm but denies any pain. Related Data Home Medications ?Medication ?Instructions ?Recorded ?Confirmed ?Last Taken ?Type atorvastatin 10 mg tablet (Lipitor) 10 mg PO HS 03/04/21 01/20/25 01/20/25 History budesonide 160 mcg-glycopyr 9 2 inh inhalation BID 03/04/21 01/21/25 Unknown History mcg-formot 4.8 mcg/actuation HFA inhaler (Breztri Aerosphere) carvedilol 25 mg tablet (Coreg) 3.125 mg PO BID 03/04/21 01/21/25 04/06/22 09:00 History semaglutide 1 mg/dose (2 mg/1.5 1 mg subcut WEEKLY 03/04/21 01/20/25 01/18/25 History mL) subcutaneous pen injector (Ozempic) warfarin 2 mg tablet (Jantoven) 2 mg PO HS 04/06/22 01/20/25 01/16/25 History azelastine 137 mcg (0.1 %) nasal 2 spray intranasal BID 12/12/22 01/21/25 Unknown History spray dapagliflozin propanediol 10 mg 10 mg PO DAILY 12/12/22 01/20/25 01/20/25 History tablet (Farxiga) donepezil 5 mg tablet 5 mg PO HS 12/12/22 01/20/25 01/20/25 History fluticasone propionate 50 1 spray intranasal BID 12/12/22 01/21/25 Unknown History mcg/actuation nasal spray,suspension ropinirole 1 mg tablet 1 mg PO HS 12/12/22 01/21/25 Unknown History acetaminophen 500 mg capsule 500 mg PO Q6H PRN pain 01/20/25 01/20/25 Unknown History albuterol sulfate 90 mcg/actuation 1 puff inhalation Q4H PRN 01/20/25 01/20/25 Unknown History aerosol inhaler shortness of breath or wheezing ferrous sulfate 325 mg (65 mg 325 mg PO DAILY 01/20/25 01/20/25 01/20/25 History iron) tablet (Jagjit-Time) hydrocodone 5 mg-acetaminophen 325 1 tablet PO Q6H PRN pain 01/20/25 01/20/25 Unknown History mg tablet loperamide 2 mg capsule (Imodium 4 mg PO Q6H PRN loose stool 01/20/25 01/20/25 Unknown History A-D) melatonin 3 mg capsule 3 mg PO HS PRN sleep 01/20/25 01/20/25 Unknown History ondansetron 4 mg disintegrating 8 mg PO Q6H PRN nausea and vomiting 01/20/25 01/20/25 Unknown History tablet potassium chloride 20 mEq 20 meq PO DAILY 01/20/25 01/20/25 Unknown History tablet,extended release (K-Tab) vibegron 75 mg tablet (Gemtesa) 75 mg PO DAILY 01/20/25 01/20/25 Unknown History Allergies Allergy/AdvReac Type Severity Reaction Status Date / Time codeine AdvReac Mild Nausea Verified 01/21/25 08:46 Review of Systems Review of Systems: All systems reviewed & are unremarkable except as noted in HPI and below PMFSH Past Medical History Medical History B12 deficiency B12 deficiency Chronic anticoagulation Chronic kidney disease, stage 3 Chronic obstructive pulmonary disease Gout Heart failure Echocardiogram in March 2022 showed mildly reduced LV systolic function with an EF of 50% and abnormal diastolic function. Hypertension Kidney stones Obstructive sleep apnea On APAP. Osteoporosis Type 2 diabetes mellitus Urinary frequency Urinary incontinence Surgical History Surgical History History of appendectomy History of hysterectomy History of mitral valve replacement with mechanical valve (04/2006) [facility] Loc valve. History of permanent cardiac pacemaker placement Family History Family History Mother Family history of coronary artery disease Social History Social History Social History: Surrogate medical decision maker: Deneen Winn or Corinne Hensley, daughters. Code status: Full code. Smoking packs per day: 3 Smoking cigarettes per day: 60.0 Years smoked: 18 Smoking pack-years: 54.00 Smoking status: Former smoker Second hand tobacco smoke exposure: Yes Alcohol intake: never Drinks per week: 1 Substance use: never Substance use type: does not use Last use: 1974 Do You Feel Safe in your Home?: Yes Lack of Transportation: No Lack of Food: Never True Current Housing: I Have Housing Concerned About Future Housing: No Difficulty Paying Gas/Electric Bills: No Difficulty Paying for Meds: No Currently Unemployed: No Education: Don't Know Difficulty w/ Childcare or Family Care: No Living arrangements: assisted living Additional living arrangements comments: Assisted living at [facility]. Spiritual care concerns: No Exam Narrative: APPEARANCE: Well appearing, no pain, no distress, well-nourished. HEAD: normocephalic, atraumatic. EYES: PERRLA/EOMI, conjunctivae clear. NOSE: Normal no drainage EARS:TMS clear with good light reflex. THROAT: Pharynx clear, no exudate. NECK: Supple. No adenopathy, no masses. RESPIRATORY: Airway patent, respirations nonlabored. Clear to auscultation bilaterally, no rales, rhonchi, wheezing. CARDIOVASCULAR: Regular rate and rhythm without murmurs rubs or gallops. ABDOMINAL: Soft, nontender, nondistended, normal bowel sounds MUSCULOSKELETAL: Moves all extremities. Strength/ROM intact, No edema, No calf tenderness. NEURO: Alert. Cranial nerves II through XII intact. Good gait. Good coordination SKIN: Left arm edema Course Vital Signs Vital signs: Vital Signs Temperature 97.7 F 04/30/25 14:41 Pulse Rate 71 04/30/25 14:41 Respiratory Rate 24 H 04/30/25 14:41 Blood Pressure 179/87 H 04/30/25 14:41 Pulse Oximetry 100 04/30/25 14:41 Oxygen Flow Rate 2 04/30/25 14:41 Temperature 97.8 F 04/30/25 18:10 Pulse Rate 61 04/30/25 18:10 Respiratory Rate 18 04/30/25 18:10 Blood Pressure 181/68 H 04/30/25 18:10 Pulse Oximetry 100 04/30/25 18:10 Oxygen Delivery Nasal Cannula 04/30/25 15:30 Oxygen Flow Rate 2 04/30/25 15:30 Medical Decision Making MDM Narrative Medical decision making narrative: 79-year-old female presents emergency department for evaluation for reported abdominal pain and shortness of breath. Upon arrival emergency department patient has neither. Patient does have some edema of her left upper extremity. Patient is currently afebrile with no leukocytosis and hemoglobin of 12.9. Patient's creatinine is similar to her baseline. Patient was negative for influenza RSV and for COVID. Ultrasound was negative for DVT Differential Diagnosis Differential Diagnosis: COVID, RSV, influenza, pneumonia, abdominal pain, upper extremity DVT Vital Signs Vital Signs: Vital Signs Temperature 97.7 F 04/30/25 14:41 Pulse Rate 71 04/30/25 14:41 Respiratory Rate 24 H 04/30/25 14:41 Blood Pressure 179/87 H 04/30/25 14:41 Pulse Oximetry 100 04/30/25 14:41 Oxygen Flow Rate 2 04/30/25 14:41 Temperature 97.8 F 04/30/25 18:10 Pulse Rate 61 04/30/25 18:10 Respiratory Rate 18 04/30/25 18:10 Blood Pressure 181/68 H 04/30/25 18:10 Pulse Oximetry 100 04/30/25 18:10 Oxygen Delivery Nasal Cannula 04/30/25 15:30 Oxygen Flow Rate 2 04/30/25 15:30 Lab Data 04/30/25 14:55 04/30/25 14:55 Labs: Lab Results 04/30/25 04/30/25 Range/Units 14:55 14:59 WBC 6.3 (4.5-10.0) K/mm3 RBC 4.48 (4.2-5.4) M/mm3 Hgb 12.9 (12.0-15.0) g/dL Hct 44.4 (37.0-47.0) % MCV 99.1 (80-100) fl MCH 28.8 (26-34) pg MCHC 29.1 L (32-36) g/dl RDW 17.7 H (11.5-14.5) % Plt Count 143 L (150-375) k/mm3 MPV 9.8 (7.4-10.4) fl Immature Gran % (Auto) 0.5 (0-0.5) % Neut % (Auto) 74.7 H (45.5-73.1) % Lymph % (Auto) 9.6 L (18.3-44.2) % Tama % (Auto) 12.5 H (2.6-8.5) % Eos % (Auto) 2.1 (0-4.4) % Baso % (Auto) 0.6 (0.2-1.2) % Lymph # (Auto) 0.60 L (0.9-3.2) K/mm3 Tama # (Auto) 0.8 H (0.1-0.6) K/mm3 Eos # (Auto) 0.1 (0-0.3) K/mm3 Baso # (Auto) 0.0 (0.0-0.1) K/mm3 Abs Immat Gran (auto) 0.03 (0.00-0.031) K/mm3 Absolute Neuts (auto) 4.7 (1.3-6.7) K/mm3 Absolute Nucleated RBC 0.000 (0.0-0.012) K/mm3 Band Neutrophils % Not Reportable Nucleated RBC % 0.0 (0.0-0.2) % Platelet Estimate Adequate (Adequate) Hypochromasia 1+ Ovalocytes 1+ Schistocytes None seen Sodium 141 (137-145) mmol/L Potassium 4.4 (3.4-5.0) mmol/L Chloride 110 H (98-107) mmol/L Carbon Dioxide 26 (22-30) mmol/L Anion Gap 5 (4-12) mmol/L BUN 32 H D (7-17) mg/dL Creatinine 1.50 H (0.7-1.0) mg/dL Estim Creat Clear Calc 32 ml/min Estimated GFR 33 L (59 - ) Glucose 139 H (65-110) mg/dL Calcium 10.6 H (8.4-10.2) mg/dL Total Bilirubin 0.9 (0.2-1.3) mg/dL AST 29 (14-36) U/L ALT 17 (6-35) U/L Alkaline Phosphatase 93 (38-126) U/L Total Protein 6.3 (6.3-8.2) g/dL Albumin 3.1 L (3.5-5.1) g/dL Influenza A (RT-PCR) Negative (Negative) Influenza B (RT-PCR) Negative (Negative) RSV (RT-PCR) Negative (Negative) SARS-CoV-2 RNA (RT-PCR) Negative (Negative) Discharge Plan Discharge Clinical Impression: Edema of hand Patient Disposition: Home Condition: Stable Instructions: Antibiotic Form Additional Instructions: Have close follow-up with your primary care physician. Patient Language: Sinhala Prescriptions: No Action carvedilol [Coreg] 25 mg Tablet 3.125 mg PO BID atorvastatin [Lipitor] 10 mg Tablet 10 mg PO HS Ozempic 1 mg/dose (2 mg/1.5 mL) Pen Injector 1 mg SUBCUT WEEKLY Rx Instructions: on Sundays Breztri Aerosphere 160-9-4.8 mcg/actuation Hfa Aerosol Inhaler 2 inh INHALATION BID warfarin [Jantoven] 2 mg tablet 2 mg PO HS escitalopram oxalate 10 mg Tablet 10 mg PO DAILY Qty: 30 0RF ropinirole 1 mg tablet 1 mg PO HS donepezil 5 mg tablet 5 mg PO HS fluticasone propionate 50 mcg/actuation spray,suspension 1 spray INTRANASAL BID dapagliflozin propanediol [Farxiga] 10 mg tablet 10 mg PO DAILY azelastine 137 mcg (0.1 %) aerosol,spray 2 spray INTRANASAL BID loperamide [Imodium A-D] 2 mg capsule 4 mg PO Q6H PRN (Reason: loose stool) melatonin 3 mg capsule 3 mg PO HS PRN (Reason: sleep) ferrous sulfate [Jagjit-Time] 325 mg (65 mg iron) tablet 325 mg PO DAILY Gemtesa 75 mg tablet 75 mg PO DAILY hydrocodone-acetaminophen 5-325 mg tablet 1 tablet PO Q6H PRN (Reason: pain) acetaminophen 500 mg capsule 500 mg PO Q6H PRN (Reason: pain) albuterol sulfate 90 mcg/actuation HFA aerosol inhaler 1 puff INHALATION Q4H PRN (Reason: shortness of breath or wheezing) potassium chloride [K-Tab] 20 mEq tablet extended release 20 meq PO DAILY ondansetron 4 mg tablet,disintegrating 8 mg PO Q6H PRN (Reason: nausea and vomiting) ketotifen fumarate 0.025 % (0.035 %) Drops 1 drp EACH EYE BID Qty: 30 0RF sennosides-docusate sodium [Senokot-S] 8.6-50 mg Tablet 1 tab PO BID Qty: 30 0RF spironolactone 25 mg Tablet 25 mg PO QAM Qty: 30 0RF famotidine 20 mg Tablet 20 mg PO DAILY Qty: 30 0RF mupirocin 2 % Ointment 1 applic topical TID Qty: 15 0RF furosemide 20 mg Tablet 20 mg PO DAILY Qty: 30 0RF losartan 100 mg Tablet 100 mg PO DAILY Qty: 30 0RF polyethylene glycol 3350 [Miralax] 17 gram Powder In Packet 17 g PO BID PRN (Reason: Constipation) Qty: 30 0RF nystatin 100,000 unit/gram Powder 1 applic topical Q12HR Qty: 1 0RF Follow-up/Referrals: Jake,Ivy Goldman EXECUTIVE VICE PRESIDENT BUSINESS DEVELOPMENT [Non-Staff] -
--- OUTSIDE RECORDS SUMMARY | 2025-04-30 17:01 | XMS_ITS | Encounter Summary ---
Author Organization [facility] Address [address] [facility] [place] [address] Care Team Providers Care Police Shift Commander Name Role Phone Juana Mesa MD Primary Care Provider [phone] Juana Mesa MD Unavailable Juana Mesa MD Unavailable Juana Mesa MD Unavailable Juana Mesa MD Unavailable Juana Mesa MD Unavailable Juana Mesa MD Unavailable Ra Jara MD Unavailable Dada Lou MD Unavailable Unavailable Paco Holden MD Unavailable [phone] Paramjit Escobar MD Unavailable [phone] Encounter Details Date Type Department Care Team (Late st Contact Info) Description 03/24/2024 Lab Requisition [facility] - DermPath Lab [address] [facility] [place] [id number] Vashti Milan, [address] [facility] [address] [place] [address] Social History Tobacco Use Types Packs/Day Years Used Date Smoking Tobacco: Former Cigarettes 2 13 0 11/26/1961 - 11/26/1974 Smokeless Tobacco: Never Alcohol Use Standard Drinks/Week Comments Yes 0 (1 standard drink = 0.6 oz pur e alcohol) Comments No Sex and Gender Information Value Date Recorded Sex Assigned at Not on file Legal Sex Female 10:53 AM CDT Gender Identity Not on file Sexual Orientation Not on file Occupation Industry Job Start Date Job End Date Retired Not on file Not on file Not on file documented as of this encounter Functional Status * Is person deaf or have serious hearing difficulty? Answer Date of Assessment Author No 07/07/2016 9:30 PM CDT Gaby Bland RN * Is person blind or have serious difficulty seeing? Answer Date of Assessment Author No 07/07/2016 9:30 PM CDT Gaby Bland RN * Does person have serious difficulty walking/climbing stairs? Answer Date of Assessment Author Yes 07/07/2016 9:30 PM CDT Gaby Bland RN * Does person have difficulty dressing/bathing? Answer Date of Assessment Author No 07/07/2016 9:30 PM CDT Gaby Bland RN * Does person have difficulty doing errands alone? Answer Date of Assessment Author No 07/07/2016 9:30 PM CDT Gaby Bland RN documented as of this encounter Mental Status * Does person have difficulty concentrating/remembering/making decisions? Answer Entry Date Author No 07/07/2016 9:30 PM ANABELT Gaby Bland RN documented in this encounter Plan of Treatment [...] 7.0 Result Component 6.4( 7 6:22 AM OUTDOOR ADVENTURE INSTRUCTOR) No Lang, Marnice A documented as of this encounter Procedures Procedure Name Priority Date/Time Associated Diagnosis Comments DERMATOPATHOLOGY Routine 03/24/2024 10:1 0 AM CDT documented in this encounter Results * DERMATOPATHOLOGY (03/24/2024 10:10 AM CDT) Case Report Dermatopathology Report Case: [id number] Authorizing Provider: Vashti Milan DO Collected: 03/24/2024 10:10 AM Ordering Location: [facility] - Received: 03/25/2024 07:13 AM DermPath Lab Pathologist: Meredith Burks MD Specimens: A) - Skin, left taoism B) - Skin, right chest 4 5:05 PM CDT DERMATOPATHOLOGY LABORATORY Final Diagnosis Specimen A. 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 SKIN, right chest: HYPERPLASTIC (HYPERTROPHIC) ACTINIC KERATOSIS (L57.0) 4 5:05 PM CDT DERMATOPATHOLOGY LABORATORY at 1705 CDT Clinical History A-B: r/o NMSC 4 5:05 PM CDT DERMATOPATHOLOGY LABORATORY Gross Description Specimen A: Received is one formalin filled container labeled with the patient's name and designated left taoism. The specimen consists of a shave biopsy measuring 7x5x3 mm. Jar 0. Specimen B: Received is one formalin filled container labeled with the patient's name and designated right chest. The specimen consists of a shave biopsy measuring 7x4x1 mm. Jar 0. 4 5:05 PM CDT DERMATOPATHOLOGY LABORATORY Microscopic Description Specimen A. SKIN, left taoism: Sections show hyperkeratosis, papillomatosis, hypergranulosis, and acanthosis. [...] characteristic determined by the Dermatopathology Laboratory at [facility], directed by Dr. Ines Maldonado. These tests need not be, and therefore are not, approved by the [place] Food and Drug Administration. The tests are used for clinical purposes. Billing Codes Specimen Charges Stain Charges 71827 [id number] 1 1 4 5:05 PM CDT DERMATOPATHOLOGY LABORATORY Embedded Images 4 5:05 PM CDT DERMATOPATHOLOGY LABORATORY Pathology/Cytology TISSUE SPECIMEN FROM SKIN / Unknown 03/24/2024 10:10 AM CDT 03/25/2024 7:13 AM CDT Miscellaneous samples (specimen) TISSUE SPECIMEN FROM SKIN / Unknown 03/24/2024 10:10 AM CDT 03/25/2024 7:13 AM CDT Vashti Milan DO LAB - PATHOLOGY/CYTOLOGY ORDERABLES Final Result DERMATOPATHOLOGY LABORATORY [facility] - Department of Dermatology [facility] [address] [place] [address], [address] [place] [address], [facility] [phone] documented in this encounter Visit Diagnoses Not on filedocumented in this encounter Care Teams Police Shift Commander Relationship Specialty Start Date End Date Juana Mesa MD [address] [place] [address] PCP - General 04/11/21 Juana Mesa MD [address] [place] [address] 04/11/21 Juana Mesa MD [facility] [place] [address] 07/01/20 Juana Mesa MD [address] [place] [address] [place] [address] 12/22/19 Juana Mesa MD [facility] [place] [address] 07/21/19 Juana Mesa MD [address] [place] [address] [place] [address] 07/12/18 Juana Mesa MD [facility] [place] [address] Family Medicine 05/03/18 Ra Jara MD [address] [place] [phone] Endocrinology 04/21/14 Dada Lou MD [address] [place] [phone] Internal Medicine 11/09/15 Paco Holden MD [address] [place] [phone] Neurology 05/11/16 Paramjit Escobar MD [address] [place] [address] Internal Medicine 11/23/16 documented as of this encounter
--- OUTSIDE RECORDS SUMMARY | 2025-04-30 17:01 | XMS_ITS | Encounter Summary ---
Author Organization [facility] Address [address] [facility] [place] [address] Care Team Providers Care Patent Agent Name Role Phone Juana Mesa MD Primary Care Provider Juana Mesa MD Primary Care Provider Juana Mesa MD Unavailable [phone] Juana Mesa MD Unavailable [phone] Juana Mesa MD Unavailable [phone] Juana Mesa MD Unavailable Juana Mesa MD Unavailable [phone] Juana Mesa MD Unavailable [phone] Ra Jara MD Unavailable Dada Lou MD Unavailable Unavailable Paco Holden MD Unavailable [phone] Paramjit Escobar MD Unavailable [phone] Reason for Visit * Reason Onset Date Comments MEDICATION REFILL 12/31/2020 Encounter Details Date Type Department Care Team (Late st Contact Info) Description 12/31/2020 Refill [facility] [address] [facility] [address] [place] [address] Mychart, Generic Provider MEDICATION REFILL Social History [...] of Assessment Author No 07/07/2016 9:30 PM ANABELT Gaby Bland RN documented as of this [...] Marnice A Reduce cholesterol intake. Diet No Lagn, Marnice A Exercise 3X per week (30 min per time) Exercise No Lang, Marnice A HEMOGLOBIN A1C < 7.0 Result Component 6.4( 7 6:22 AM OPTICAL INSTRUMENT SPECIALIST) No Lang, Marnice A documented as of this encounter Visit Diagnoses Not on filedocumented in this encounter Care Teams Patent Agent Relationship Specialty Start Date End Date Juana Mesa MD [address] [place] [address] PCP - General 07/01/20 04/10/21 Juana Mesa MD [address] [place] [address] PCP - General 04/11/21 Juana Mesa MD [address] [place] [address] 04/11/21 Juana Mesa MD [address] [place] [address] 07/01/20 Juana Mesa MD [address] [place] [place] [address] 12/22/19 Juana Mesa MD [address] [place] [place] [address] 07/21/19 Juana Mesa MD [address] [place] [address] [place] [phone] 07/12/18 Juana Mesa MD [address] [place] [address] [place] [address] Family Medicine 05/03/18 Ra Jara MD [address] [place] [phone] Endocrinology 04/21/14 Dada Lou MD [address] [place] [phone] Internal Medicine 11/09/15 Paco Holden MD [address] [place] [phone] Neurology 05/11/16 Paramjit Escobar MD [address] [place] [phone] Internal Medicine 11/23/16 documented as of this encounter
--- OUTSIDE RECORDS SUMMARY | 2025-04-30 17:01 | XMS_ITS | Clinical Summary ---
Author Organization [facility] Address [address] [place] [address] Care Team Providers Care Storage Garage Manager Name Role Phone No, Physician Primary Care Provider [phone] Allergies Active Allergy Reactions Criticality Noted Date [...] with long-term current use of insulin ([facility]) Use to test three times a day 1 kit 06/07/20 22 Active blood glucose diagnostic (glucose blood) stripIndications: Type 2 diabetes mellitus with diabetic nephropathy, with long-term current use of insulin ([facility]) Check blood sugar three ttimes a day or as directed 300 each 3 06/07/20 22 Active lancets miscIndications:T ype 2 diabetes mellitus with diabetic nephropathy, with long-term current use of insulin ([facility]) Use to test 3 times per [...] with long-term current use of insulin ([facility]) Inject 1 mg under the skin [...] metapneumovirus Assessment & Plan (01/17/2023 4:04 PM DATA TYPIST): -chest x-ray was reviewed, seems to be [...] 01/15/2023 Assessment & Plan (01/15/2023 1:29 PM DATA TYPIST): -noted under the right breast -ordered topical miconazole Altered bowel function 12/19/2022 Allergic conjunctivitis 08/26/2022 Hemorrhoids 08/26/2022 Depression, major, recurrent 05/25/2022 Assessment & Plan (01/15/2023 1:30 PM DATA TYPIST): -resumed Lexapro Assessment & Plan (05/25/2022 5:06 AM CDT): - Endorses good mood - Continue home Lexapro 10mg daily Chronic heart failure with preserved ejection fr action 04/19/2022 Assessment & Plan (04/10/2024 9:31 AM [...] 04/17/2022 Assessment & Plan (01/15/2023 1:29 PM DATA TYPIST): -resumed donepezil Assessment & Plan (05/25/2022 5:05 AM CDT): - Continue home Donepezil 5mg qhs Assessment & Plan (05/03/2022 5:17 AM CDT): New Order aricept COVID-19 07/02/2021 Mixed diabetic hyperlipidemi a associated with type 2 diabetes mellitus 04/26/2021 Assessment & Plan (12/21/2021 5:34 AM DATA TYPIST): Stable Cont lipitor Goal: TC<200, LDL<100, TG<150 Pulmonary hypertension 04/26/2021 Assessment & Plan (04/10/2024 9:37 AM CDT): Pulmonary hypertension with PASP 62 mmHg. Possible cause is due to TR. She is dry, lasix was hold. Chronic anticoagulation 04/26/2021 Nonrheumatic tricuspid valve regurgitation 04/26 Osteoporosis 11/13/2019 Assessment & Plan (01/15/2023 1:29 PM DATA TYPIST): -reports that she has not been taking [...] needed. Assessment & Plan (01/15/2023 1:28 PM DATA TYPIST): -ordered hemoglobin A1c, hold Farxiga and semaglutide in the hospital -we will manage with long-acting, pre meal and sliding scale insulin in the hospital -continue to monitor blood sugars, goal inpatient blood sugar is 140-180 Assessment & Plan (05/03/2022 5:16 AM CDT): Chronic Cont glucophage, basaglar, jardiance, ozempic Goal: Hgba1c<6.5 Assessment & Plan (12/21/2021 5:40 AM DATA TYPIST): Chronic Cont glucophage, basaglar, jardiance, ozempic Goal: Hgba1c<6.5 Assessment & Plan (02/22/2021 2:56 PM CDT): Stable Cont metformin COPD exacerbation 10/18/2019 Assessment & Plan (01/17/2023 4:08 PM DATA TYPIST): -with severe exacerbation -likely from viral infection -diffuse wheezing noted bilaterally on arrival, improving. -started on steroids, inhaler therapy, s/p scheduled DuoNebs. Transition to PO steroid taper Assessment & Plan (10/18/2019 12:03 PM DATA TYPIST): Give germán and wes here in clinic Order CXR Order etienne casey Chronic kidney disease (CKD), stage III (moderat e) 11/08/2015 Overview (05/06/2019): Overview: Based on GFR's Assessment & Plan (01/15/2023 1:30 PM DATA TYPIST): -renal function is at baseline, avoid nephrotoxic agents, monitor urine output Atrial fibrillation 04/11/2014 Overview (03/01/2017): ATRIAL FIBRILLATION Assessment & [...] Warfarin Assessment & Plan (01/17/2023 4:06 PM DATA TYPIST): -resumed Coreg and Coumadin. Patient is status post pacemaker insertion. INR 3.3 01/14. - INR supratherapeutic at 8.4 > 7.8. Verified with facility that they can draw INR 01/18 and 01/22. Dr. Phipps (patient disability rater) monitors outpatient for adjustment. Assessment & Plan (05/25/2022 4:55 AM CDT): - S/p mechanical mitral valve - Pacemaker (Medtronic Adapta) placed on 10/25/2015. Permanent afib 100% V paced. Pacemaker dependent VVI to 30 bpm CAR WASHER. - INR goal 2.5-3.[address] Loc Mechanical mitral valve - Was getting bridge with lovenox 80 mg q12 for low INR CASE REVIEWER with Warfarin - On warfarin and lovenox [...] stabilizes. Assessment & Plan (01/16/2023 11:14 AM DATA TYPIST): -resumed Coreg and losartan. Patient persistent hypertensive. [...] Stable Cont cozaar, coreg Sick sinus syndrome 04/10/2011 Overview (03/08/2018): Description: Sick Sinus Syndrome Pacemaker 02/09/2011 Overview (01/21/2025): Medtronic Humphrey Single Pacemaker. Dx; SSS, Afib. DOI 01/21/2025-Sarika. Chronic lead 10/25/2015. [employer] remote monitoring-Mobile marino. S/P mitral valve replacement 04/06/2009 Overview (05/06/2019): Overview: St. Loc's valve. Dr. De La Rosa office follows tj. He is her disability rater. On warfarin. 11/05/2014 Assessment & Plan (04/10/2024 [...] function Assessment & Plan (01/17/2023 4:09 PM DATA TYPIST): - goal INR of 2.5-3.5, on Coumadin - INR supratherapeutic at 8.4 > 7.8. Verified with facility that they can draw INR 01/18 and 01/22. Dr. Phipps (patient disability rater) monitors outpatient for adjustment. - Holding coumadin, [...] 01/15/2023 Assessment & Plan (12/21/2021 5:42 AM DATA TYPIST): Worsening pain Use flexeril PRN Ear discomfort, left 06/15/2021 021 Neck pain 05/04/2021 01/15/2023 Assessment & Plan (12/21/2021 5:42 AM DATA TYPIST): Worsening pain Use flexeril PRN Assessment & [...] w ith chronic systolic congestive heart failure ([facility]) 02/22/2021 01/15/2023 Assessment & Plan (12/21/2021 5:35 AM DATA TYPIST): Stable ruslan Salinas Goal: SBP<140, DP<90 Assessment & Plan (05/11/2021 4:16 AM CDT): Stable ruslan Salinas Assessment & Plan (02/22/2021 2:52 PM CDT): Stable ruslan Salinas Right leg pain 11/22/2020 06/30/2021 Assessment & Plan (12/06/2020 4:35 AM DATA TYPIST): Was likely secondary to cellulitis Is better Assessment & Plan (11/30/2020 5:22 AM DATA TYPIST): New Order STAT venous doppler If negative [...] 01/15/2023 Sepsis with cutaneous manife stations ([facility]) 11/13/2019 01/15/2023 Type 2 diabetes mellitus not at goal ([facility]) 11/13/2019 01/15/2023 Assessment & Plan (02/14/2020 [...] 06/30/2021 Assessment & Plan (11/13/2019 10:25 AM DATA TYPIST): Recently discharged from hospital for pneumonia and [...] 06/30/2021 Assessment & Plan (10/29/2019 1:33 PM DATA TYPIST): D/w account executive healthcare and hospitalist and sent for direct admission to the hospital Aortic stenosis due to bicuspid aortic valve 9 01/15/2023 Cataracts, bilateral 05/06/2019 023 Overview (05/06/2019): Overview: Dr. Jaydon Cortez? Gastroesophageal reflux dise ase without esophagitis 05/06/2019 [...] dermatitis 03/09/2017 01/15/2023 CHF (congestive heart failure) 02/22/2017 03/21/2023 Assessment & Plan (01/17/2023 4:07 PM DATA TYPIST): -echocardiogram from 05/25/2022 showed EF of 54% -currently there is no evidence of fluid overload on exam, proBNP is actually better than the previous admission -resumed Lasix and Aldactone -goal-directed medical therapy as tolerated Assessment & Plan (05/25/2022 5:01 AM CDT): - 04/10/22 2D echo at [place] - EF 50%, mild aortic stenosis, mechanical [...] 01/15/2023 Assessment & Plan (12/21/2021 5:41 AM DATA TYPIST): Stable Cont allopurinol Assessment & Plan (02/22/2021 [...] 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/HCC) 07/12/2016 01/15/2023 Overview (05/06/2019): Overview: Small infarct right cerebellum, old prior to 07/03/2016. History of mitral valve repair 07/09/2016 01/15/2023 Atherosclerosis of aorta ([facility]) 07/06/2016 01/15/2023 Overview (05/06/2019): Overview: CXR 01/01/14 Benign colonic polyp 05/10/2016 023 Lenticular sclerosis 03/13/2016 023 Complete atrioventricular block ([facility]) 08/03/2015 01/15/2023 History of mitral valve [...] 05/22/2014 01/15/2023 Chronic obstructive pulmonar y disease ([facility]) 05/19/2014 01/15/2023 Overview (05/06/2019): Overview: Doing well with Spiriva and off Qvar. Not needing albuterol. Patient has moderate COPD. She is clinically stable. I will continue her on Symbicort 160/4.5 b.i.d., p.r.n. albuterol and Atrovent nebs, and p.r.n. albuterol. Had glass installer technician has also added incruse once a day which she will continue. I will order PFT Assessment & Plan (05/25/2022 3:45 AM CDT): - Not needing albuterol as outpatient per pulmonology note - Gisselle Bueno 1 puff daily History of [place] (myocardial infarction) 04/21/2014 01/15/2023 Overview (05/06/2019): Overview: [...] CDT): - Follows with endo clinic at [facility] (Home reg ozempic, Jardiance 10, metformin 500 [...] Ozempic Assessment & Plan (12/10/2018 2:06 PM DATA TYPIST): I called her to assess response to her new med, ozempic. Took first correct dose two days ago, did not feel great yesterday, but feels well today. Stopped januvia as directed. Will take next ozempic dose in 5 days and let us know response. 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 Mitral valve disease 03/19/2013 023 Cardiomyopathy 03/19/2013 01/15/2023 Chronic systolic heart failure ([facility]) 03/19/2013 01/15/2023 Mixed urge and stress incontinence 09/09/2012 01/15/2023 Dry eye syndrome 03/04/2012 01/15/2023 Overview (02/08/2022): Not bad as of 11/05/2014 not compliant with drops always. History of colonic polyps 04/04/2011 Overview (05/06/2019): Overview: Colonoscopy Removed 8 polyps, all benign. 10/23/16 tubular adenoma x 4 Complicated by GI bleed hospital stay 10/27/16 - 11/04/16, [facility] Asystole ([facility]) 02/09/2011 1 Persistent atrial fibrillation 02/09/2011 [...] Encounters Date Type Department Care Team Description 03/24/2025 Telephone [facility] Endocrinology Metabolism and Lipid [address] [place] [address] [place] [address] Alisha Watson 01/30/2025 Orders Only [facility] Medical [facility] Cardiology [address] [place] [address] Chata Miller NP 01/28/2025 3:30 PM DATA TYPIST Ancillary Procedure [facility] Cardiology [address] [place] [address] Pacemaker (Primary Dx); Atrial fibrillation, unspecified type (HCC); Sick sinus syndrome (HCC) from Last 3 Months Immunizations Immunization Administration [...] TW Conv) Asthma Cataract Diabetes mellitus ([facility]) 2009 Heart disease 1975 Hypertension Rheumatic fever 1950 Sleep apnea 2012 Cardiac rhythm disturbance Covid-19 Covid Pacemaker COPD (chronic obstructive pu lmonary disease) ([facility]) CHF (congestive heart failure) ([facility]) Family History Medical History Relation Name Comments Coronary artery disease Brother Diabetes Maternal Grandmother Maile Patel Diabetes type II Maternal Grandmother Maile Patel Linda betes -Type II; Coronary artery disease Mother Nakia Rachel Heart attack Mother Nakia Rachel Heart disease Mother Nakia Rachel Hyperlipidemia Mother Nakiaalexander Rachel Hypertension Mother Nakia Rachel Macular degeneration [...] Used Date Smoking Tobacco: Former Cigarettes 3 51.4 S tarted: 11/26/1973 Smokeless Tobacco: Never Tobacco [...] often do you attend chur ch or lutheran services? More than 4 times per year 02/02/2023 Do you belong to any clubs o r organizations such as scientologist groups, unions, fraternal or athletic groups, or [...] on file Legal Sex Female 9:08 AM DATA TYPIST Gender Identity Female 06/25/2019 7:13 AM CDT Sexual Orientation Not on file Obstetrics History Last Filed Vital Signs Vital Sign Reading Time Taken Comments Blood Pressure 128/76 12/10/2024 1:25 PM DATA TYPIST Pulse 91 12/10/2024 1:25 PM DATA TYPIST Temperature 36.2 C (97.1 F) 09/12/2024 11:39 AM CDT Respiratory Rate 18 04/10/2024 8:25 AM CDT Oxygen Saturation 99% 12/10/2024 1:25 PM DATA TYPIST Inhaled Oxygen Concentration - - Weight 85.7 kg (189 lb) 12/10/2024 1:25 PM DATA TYPIST Height 157.5 cm (5' 2) 12/10/2024 1:25 PM DATA TYPIST Body Mass Index 34.57 12/10/2024 1:25 PM DATA TYPIST Plan of Treatment Health Maintenance Due Date [...] 2024 04/25/2022, 08/24/2021, 01/12/2021, Additional history exists Lipid Panel 08/17/2024 08/17/2023, 04/28, 04/19/2022, Additional history exists Hemoglobin A1C 03/13/2025 09/12/2024, 02/24, 09/07/2023, Additional history exists eGFR 04/09/2025 04/09/2024, 03/26, 04/07/2024, Additional history exists Fall Risk Assessment 04/10/2025 04/10/2024, 12/12/2021, 07/04/2021, Additional history exists Influenza Vaccine (Season Ended) 2025 10/05/2021, 09/14/2020, 09/02/2019, Additional history exists DTaP/Tdap/Td Vaccine (5 - Td or Tdap) 05/24/2032 05/24/2022, 03/17/2013, 03/17/2013, Additional history exists Pneumococcal vaccine 65+ Completed 018, 06/24/2015, 09/04/2011, Additional history exists Medical Devices Implanted Type Area Senior Network Security Engineer Device Identifier Shelf Expiration Date Model / Serial / Lot [employer] Coil Embolization Tornado Microcoil Makah Od3-2mm .018 In Catheter [id number] - [id number] Implanted:Qty: 1 on 05/24/2022 at [facility] [employer] 03/13/2027 [id number] / / [id number] [employer] Coil Embolization Tornado Microcoil Makah Od3-2mm .018 In Catheter [id number] - [id number] Implanted:Qty: 1 on 05/24/2022 at [facility] [employer] 03/13/2027 [id number] / / [id number] [employer] Coil Embolization Tornado Microcoil Makah Od3-2mm .018 In Catheter [id number] - [id number] Implanted:Qty: 1 on 05/24/2022 at [facility] [employer] 03/13/2027 [id number] / / [id number] [employer] Coil Embolization Tornado Microcoil Makah Od3-2mm .018 In Catheter [id number] - [id number] Implanted:Qty: 1 on 05/24/2022 at [facility] [employer] 03/13/2027 [id number] / / [id number] [employer] Coil Embolization Tornado Microcoil Makah Od3-2mm .018 In Catheter [id number] - [id number] Implanted:Qty: 1 on 05/24/2022 at [facility] [employer] 03/13/2027 [id number] / / [id number] Angio-Seal Vip 6fr Closere Device [id number] - [id number] Implanted:Qty: 1 on 05/24/2022 at [facility] [employer] 02/23/2023 [id number] / / [id number] Procedures Procedure Name Priority Date/Time Associated Diagnosis Comments DEVICE CHECK - IN OFFICE Routine 01/28/2025 3:12 PM DATA TYPIST Atrial fibrillation, unspecified type (HCC) Sick sinus syndrome (HCC) POCT HEMOGLOBIN A1C Routine 09/12/2024 1 1:49 [...] hyperglycemia, with long-term current use of insulin (HCC) from Last 3 Months or Most Recently Relevant to Health Maintenance Results * DEVICE CHECK - IN OFFICE (01/28/2025 3:12 PM DATA TYPIST) Anatomical Region Laterality Modality Other Narrative 01/29/2025 8:26 AM DATA TYPIST Medtronic Neva Single Pacemaker. Dx; SSS, Afib. DOI 01/21/2025-Sarika. Chronic lead 10/25/2015. [employer] remote monitoring. Supervising MD: Dr. Graves. Aquacel dressing removed from left chest. Left pectoral incision well approximated. No redness or drainage noted. Minimal edema and ecchymosis noted. Reiterated post op wound care instructions. Office VVI Pacemaker interrogation demonstrated appropriate device function. Appropriate lead measurements noted. Battery function: 3.21 V, 13.1 years remaining battery life to PAUL. Presenting rhythm- CAR WASHER. CAR WASHER- 99.9%. No Ventricular high rate episodes noted. Medications; Coumadin, Coreg. No programming changes made to device settings. See scanned report. Office pacemaker f/u expected in 13-15 months. [employer] remote f/u 05/06/2025. Of Note: Corinne-pt daughter informed me that her sister Kailyn has the mobile remote marino on her cell phone. I checked Quarterly web site and it shows that patient does not have a monitor. Sent email to [employer] monitor support team to contact Kailyn regarding remote monitoring for her mother. Ailyn Shay, RN Romel Graves MD [facility] PROCEDURES F inal Result * POCT hemoglobin A1c (09/12/2024 11:49 AM CDT) Pathologist [facility] Hemoglobin A1C, POC 6.7 4.0 - 5.6 % Blood 09/12/2024 11:4 9 AM CDT Ra Jara MD POINT OF CARE TEST ORDERA BLES Final Result * (ABNORMAL) eGFR (04/09/2024 10:22 PM CDT) Pathologist [facility] eGFR 30(L) >=60 mL/min/1. 73 m2 Comment: [...] LAB BLOOD ORDERABL ES Final Result [facility] [place] [address] * POCT lipid panel (08/17/2023 3:06 PM [...] Performing Organization Information: Site ID: [id number] Name: Ismael Rahman Address: [address] [address] Director: Hermelindo Arce D.O., MPH Ra Jara MD LAB URINE ORDERABLES Kami l Result [facility] [place] from Last 3 Months or Most Recently Relevant to Health Maintenance Insurance MEDICARE [facility] Address: [address] [address] [facility] [address] Dasilva [address] [place] [id number] MEDICARE AARP MEDICARE MEDICARE Advance Directives For more information, please contact: [phone] Documents on File Type Date Recorded Patient Door Frame Assembler Machine Expl anation ADVANCE DIRECTIVE 02/05/2023 10:58 AM [...] 11:11 PM 06/05/2022 8:42 PM Care Teams Storage Garage Manager Relationship Specialty Start Date End Date No, Physician PCP - General 09/12/24
--- OUTSIDE RECORDS SUMMARY | 2025-04-30 17:01 | XMS_ITS | Encounter Summary ---
Author Organization [facility] Address [address] [place] [address] Phone Care Team Providers Care Fish Liver Sorter Name Role Phone No, Physician Primary Care Provider [phone] Encounter Details Date Type Department Care Team (Late st Contact Info) Description 03/24/2025 [facility]phone [facility] End[facility] Metabolism and Lipid [address] [facility] 13th [place] [address] [place] [address] Alisha Watson Social History Tobacco Use Types Packs/Day Years Used Date Smoking Tobacco: Former Cigarettes 3 51.4 S tarted: 11/26/1973 Smokeless Tobacco: Never Alcohol [...] often do you attend chur ch or jain services? More than 4 times per year 02/02/2023 Do you belong to any clubs o r organizations such as buddhism groups, unions, fraternal or athletic groups, or [...] place to sleep or slept in a care home (including now)? No 02/02/2023 Personal Safety Answer Date Recorded Have you ever been in or are you currently in a harmful physical or emotional relationship or is someone making you feel afraid or unsafe? Denies 04/02/2024 Comments No Sex and Gender Information Value Date Recorded Sex Assigned at Not on file Legal Sex Female 9:08 AM RETAIL SERVICE REPRESENTATIVE Gender Identity Female 06/25/2019 7:13 AM CDT Sexual Orientation Not on file documented as of this encounter Plan of Treatment Not on file documented as of this encounter Visit Diagnoses Not on filedocumented in this encounter Care Teams Fish Liver Sorter Relationship Specialty Start Date End Date No, Physician PCP - General 09/12/24 documented as of this encounter
--- OUTSIDE RECORDS SUMMARY | 2025-04-30 17:01 | XMS_ITS ---
Author [facility] Address [address] [place], [place] [id number] Care Team Providers Care Marine Reporter Name Role Phone LINDA PACHECO Unavailable [phone] Stone, Crystal Unavailable Unavailable REASON FOR VISIT *General care Encounters Encounter Location Date Provider Diagnosis [facility] [place] [address] [facility] [address] [place], [place] [id number] 01/26/2025 LINDA PACHECO Plan Of Treatment Next Appt Details Provider Name:LINDA PACHECO, 01:30:00 PM, [address], [facility] [address], [place], [place], [id number], Progress Notes * MAI MCCULLOUGH KDOB:[birth year] (79 yo F)Acc No.[id number]:01/26/2025 Patient: Shubham MAI RODRIGUEZ Provider: Gabino Pacheco DPM :1945 A ge:79 Y S ex:Female Date:01/26/2025 Address:[address] [place], [place] [id number] Subjective: * Chief Complaints: * 1 . *General care. * Medical History: Objective: * Vitals: Assessment: Plan: * Treatment: * Billing Information: * Visit Code: * Procedure Codes: * Electronic signature of LINDA PACHECO DPM on 04/30/2025 at 05:01 PM CDT Sign off status: Pending * Provider: Gabino Pacheco DPM Date: 0 01/26/2025 Generated for Mame mcmullen/Smith/Karissa on: 0 04/30/2025 05:01 PM CDT
--- OUTSIDE RECORDS SUMMARY | 2025-04-30 17:02 | XMS_ITS | Encounter Summary ---
Author Organization [facility] Facility Care Team Providers Care [employer]er Name Role Phone Juana Mesa MD Primary Care Provider [phone] Sharlene Meléndez LPN Unavailable Lissette Riley Unavailable No, Physician Primary Care Provider [phone] Paulette Prieto MARINE ENGINEER Primary Care Provider [phone] Meredith Aburto MARINE ENGINEER Primary Care Provi arlette No, Physician Primary Care Provider [phone] Encounter Details Date Type Department Care Team (Latest Contact Info) Description 08/14/2018 Orders Only [facility] ProviderDwayne MD [address] [place] [id number] Social History Tobacco Use Types Packs/Day Years Used Date Smoking Tobacco: Former Smokeless Tobacco: Never Alcohol Use Standard Drinks/Week Comments Yes 0 (1 standard drink = 0.6 oz pur e alcohol) Comments Unknown Sex and Gender Information Value Date Recorded Sex Assigned at Not on file Legal Sex Female 9:08 AM QUALITY AUDIT REPRESENTATIVE Gender Identity Female 06/25/2019 7:13 AM [...] diarrhea 04/18/2017 04/17/2017 12/30/2021 2 :39 PM QUALITY AUDIT REPRESENTATIVE COVID: Suspected 07/05/2020 07/05/2020 07/19/2020 3:05 AM CDT COVID: Suspected 07/01/2021 07/01/2021 07/01/2021 2:38 PM CDT COVID: Suspected 07/01/2021 07/01/2021 07/01/2021 9:10 PM CDT COVID19 07/01/2021 07/01/2021 07/15/2021 3:05 AM CDT COVID: Recovered Comment:Added based on recent COVID infection. 07/15/2021 07/15/2021 11/12/2021 3:[address] COVID: Suspected 11/28/2021 11/28/2021 11/28/2021 7:00 PM QUALITY AUDIT REPRESENTATIVE COVID19 11/28/2021 11/28/2021 12/12/2021 3:05 AM QUALITY AUDIT REPRESENTATIVE COVID: Recovered Comment:Added based on recent COVID infection. 12/12/2021 12/12/2021 04/11/2022 3:05 AM C DT COVID: Suspected 07/05/2022 07/05/2022 07/05/2022 10:39 PM CDT MRSA 07/06/2022 07/06/2022 01/02/2023 3:05 AM QUALITY AUDIT REPRESENTATIVE COVID19 12/02/2022 12/02/2022 12/13/2022 3:05 AM QUALITY AUDIT REPRESENTATIVE COVID: Recovered Comment:Added based on recent COVID infection. 12/13/2022 12/15/2022 03/13/2023 3:05 AM C DT Exposure, COVID-19 Comment:No direct exposure. Pt in COVID recovery window. No concern for new infection. Ana Aguilera 01/15/2023 Added automatically based on COVID19 lab answers indicating exposure risk 01/14/2023 01/14/2023 01/15/2023 10:17 AM QUALITY AUDIT REPRESENTATIVE COVID: Suspected 01/14/2023 01/14/2023 01/14/2023 6:42 PM QUALITY AUDIT REPRESENTATIVE Human metapneumovirus, conta ct + droplet 01/14/2023 01/14/2023 01/21/2023 3:[address] COVID: Suspected 01/30/2023 01/30/2023 01/30/2023 10:06 PM QUALITY AUDIT REPRESENTATIVE documented as of this encounter Care Teams [employer]er Relationship Specialty Start Date End Date Juana Mesa MD [address] [place] [address] PCP - General 11/26/17 10/26/18 No, Physician PCP - General 06/20/22 06/21/22 Paulette Prieto NP [address] [place] [address] PCP - General Nurse Practitioner 06/22/22 08/16/23 Meredith Aburto NP [address] [place] [address] PCP - General Family Medicine 08/17/23 09/11/24 No, Physician PCP - General 09/12/24 Sharlene Meléndez LPN [address] [place] [address] Director Housekeeping 11/05/19 11/05/19 Lissette Riley [address] [place] [address] [employer] Lithopone Charger 01/15/20 01/15/20 documented as of this encounter
--- OUTSIDE RECORDS SUMMARY | 2025-04-30 17:02 | XMS_ITS | Data Portability ---
Author Organization [place] - [facility], [employer] Address [address] [place] [address] Care Team Providers Care Sample Preparation Supervisor Name Role Phone KAVITA CARTER Instructor Of Sociology [facility] [employer] OTHER ASSOCIATED FOOT SURGEONS Barrel Cooper PODIATRY 1ST OTHER ALPESH ASHLEY Salesperson Jewelry LISA CERRATO Medical Oncologist Assessment Encounter Date Assessment Date Assessment LastModified by Organization Details LastModified Time 04/02/2023 04/02/2023 Medication Changes labs to eval levels. bone density test. Wants to have it done at [facility]. Signs and symptoms of when [...] plan. F/U 4 weeks, sooner if needed [email or web address] Not available 04/02/2023 08:46:41 04/30/2023 04/30/2023 Medication [...] plan. F/U 4 weeks, sooner if needed [email or web address] Not available 04/30/2023 12:45:01 05/28/2023 05/28/2023 Medication Changes Bone density order sent to [facility] Signs and symptoms of when to seek [...] plan. F/U 4 weeks, sooner if needed [email or web address] Not available 06/24/2023 11:14:14 07/17/2023 07/17/2023 Medication [...] 4 weeks, sooner if needed Not available 07/17/2023 14:13:10 Plan of Treatment Reminders Order Date Submit Date Provider Last Modified By Organization Details Last Modified Time Details Appointments None recorded. Lab HbA1c (hemoglobi n A1c), blood [address], [place], [address], 3 09:50:32 urinalysis , dipstick, reflex micro [address], [place], [address], 3 17:38:51 unlisted lab - vitamin D total, 25-hydroxy * [address], [place], [address], 3 09:50:34 CMP, serum or plasma [address], [place], [address], 3 09:50:33 magnesium, serum or plasma [address], [place], [address], 3 09:50:34 unlisted lab - complete blood count with auto diff* [address], [place], [address], 3 09:50:31 lipid panel, serum 2022 023 RANJIT [employer], [address], [place], [address], 3 09:50:33 Referral None recorded. Procedures None recorded. Surgeries None recorded. Imaging bone density [address], [facility] [facility] [address], [place], [address], 3 12:45:12 bone density 2022 023 [facility], [facility]0 [facility] [address], [place], [address], 3 15:55:16 Medication Orders Zeasorb AF 2 % topical powder 2022 023 RANJIT Not available 3 10:07:09 mupirocin 2 % topical ointment 2022 023 RANJIT Not available 3 10:07:05 escitalopr am 10 mg tablet 2022 023 RANJIT Not available 3 10:01:27 True Metrix Glucose Test Strip 2022 [address]23 [place] [address] Not available 3 11:35:23 Alcohol Prep Pads 2022 023 RANJIT Not available 3 10:01:22 nystatin 100,000 unit/gram topical powder 2022 023 RANJIT Not available 3 10:01:33 cholecalci ferol (vitamin D3) 125 mcg (5,000 unit) tablet 2022 023 RANJIT Not available 3 12:47:27 nystatin 100,000 unit/gram topical cream 2022 023 [email or web address] Not available 3 17:25:22 triamcinol one acetonide 0.1 % topical cream 2022 023 [email or web address] Not available 17:25:44 Patient TargetsNo targets recorded. Patient Instructions Encounter Date Encounter Id Patient Instructions Last Modified By Organization Details Last Modified Time 04/02/2023 [id number] instructions to assisted living home* - UA order sent to [facility]. Please obtain urine and send to [facility]. [facility] Not available 04/02/2023 11:32:08 Ozempic going through patient assistance? I know we did Jackson and Eddie via patient assistance. [email or web address] Not available 03/28/2023 06:39:52 05/28/2023 [id number] care plan* Not available 01/2023 17:30:14 Reason for Referral None Reported. Results Created Date Observation Date Name Description Value Unit Range Abnormal Flag Note LastModifiedBy Organization Detail LastModifiedTime 04/02/2004/02/2023 URINA LYSIS REFLE X TO MICRO SCOPI C* urine color YELLOW yellow Not Available [facility] [address], [place], [address], 04/04/2023 17:38:51 04/02/2004/02/2023 URINA LYSIS REFLE X TO MICRO SCOPI C* urine clarity CLOUDY clear abnormal Not Available [facility] [address], [place], [address], 04/04/2023 17:38:51 04/02/20 23 04/02/2023 URINA LYSIS REFLE X TO MICRO SCOPI C* urine glucose 250 mg/dL negati ve abnormal Not Available [facility] [address], [place], [address], 04/04/2023 17:38:51 04/02/20 23 04/02/2023 URINA LYSIS REFLE X TO MICRO SCOPI C* urine bilirubin NEGATI VE negati ve Not Available [facility] [address], [place], [address], 04/04/2023 17:38:51 04/02/20 23 04/02/2023 URINA LYSIS REFLE X TO MICRO SCOPI C* urine ketones NEGATI VE mg/dL negati ve Not Available [facility] [address], [place], [address], 04/04/2023 17:38:51 04/02/20 23 04/02/2023 URINA LYSIS REFLE X TO MICRO SCOPI C* urine specific gravity 1.020 1.002- 1.030 Not Available [facility] [address], [place], [address], 04/04/2023 17:38:51 04/02/20 23 04/02/2023 URINA LYSIS REFLE X TO MICRO SCOPI C* urine blood MODERA TE negati ve abnormal Not Available [facility] [address], [place], [address], 04/04/2023 17:38:51 04/02/20 23 04/02/2023 URINA LYSIS REFLE X TO MICRO SCOPI C* urine pH 6.5 5.0-8. 0 Not Available [facility] [address], [place], [address], 04/04/2023 17:38:51 04/02/20 23 04/02/2023 URINA LYSIS REFLE X TO MICRO SCOPI C* urine protein 100 mg/dL negati ve abnormal Not Available [facility] [address], [place], [address], 04/04/2023 17:38:51 04/02/20 23 04/02/2023 URINA LYSIS REFLE X TO MICRO SCOPI C* urine urobilinogen 0.2 eu/dL 0.2-1. 0 Not Available [facility] [address], [place], [address], 04/04/2023 17:38:51 04/02/20 23 04/02/2023 URINA LYSIS REFLE X TO MICRO SCOPI C* urine nitrites NEGATI VE negati ve Not Available [facility] [address], [place], [address], 04/04/2023 17:38:51 04/02/20 23 04/02/2023 URINA LYSIS REFLE X TO MICRO SCOPI C* urine leukocytes SMALL negati ve abnormal Not Available [facility] [address], [place], [address], 04/04/2023 17:38:51 04/02/20 23 04/02/2023 URINE MICRO SCOPI C* white blood cells (WBC) >30/HP F /hpf 0-3/hp f abnormal Refer ence Range s Femal e: 0-5/H PF Male: 0-3/H PF Not Available [facility] [address], [place], [address], 04/04/2023 17:38:52 04/02/20 23 04/02/2023 URINE MICRO SCOPI C* red blood cells (RBC) 3-5/HP F /hpf 0-2/hp f abnormal Not Available [facility] [address], [place], [address], 04/04/2023 17:38:52 04/02/20 23 04/02/2023 URINE MICRO SCOPI C* epithelial cells 0-5/HP F /hpf 0-5/hp f Not Available [facility] [address], [place], [address], 04/04/2023 17:38:52 04/02/20 23 04/02/2023 URINE MICRO SCOPI C* bacteria 2+ none abnormal Not Available [employer] [address], [place], [address], 04/04/2023 17:38:52 04/03/20 23 04/03/2023 COMPL ETE BLOOD COUNT WITH AUTO DIFF* WBC 5.14 10E3/ uL 4.50-1 1.50 Not Available [facility] [address], [place], [address], 04/05/2023 09:50:31 04/03/20 23 04/03/2023 COMPL ETE BLOOD COUNT WITH AUTO DIFF* RBC 3.64 10E6/ uL 4.00-5 .40 low Not Available [facility] [address], [place], [address], 04/05/2023 09:50:31 04/03/20 23 04/03/2023 COMPL ETE BLOOD COUNT WITH AUTO DIFF* HGB 11.0 g/dL 12.0-1 5.0 low Not Available [facility] [address], [place], [address], 04/05/2023 09:50:31 04/03/20 23 04/03/2023 COMPL ETE BLOOD COUNT WITH AUTO DIFF* HCT 36.6 % 35.0-4 9.0 Not Available [facility] [address], [place], [address], 04/05/2023 09:50:31 04/03/2004/03/2023 COMPL ETE BLOOD COUNT WITH AUTO DIFF* MCV 101 fL 80-100 high Not Available [facility] [address], [place], [address], 04/05/2023 09:50:31 04/03/20 23 04/03/2023 COMPL ETE BLOOD COUNT WITH AUTO DIFF* MCH 30 pg 26-32 Not Available [facility] [address], [place], [address], 04/05/2023 09:50:31 04/03/2004/03/2023 COMPL ETE BLOOD COUNT WITH AUTO DIFF* MCHC 30 g/dL 32-36 low Not Available [facility] [address], [place], [address], 04/05/2023 09:50:31 04/03/20 23 04/03/2023 COMPL ETE BLOOD COUNT WITH AUTO DIFF* RDW 19.6 % 11.5-1 4.5 high Not Available [facility] [address], [place], [address], 04/05/2023 09:50:31 04/03/20 23 04/03/2023 COMPL ETE BLOOD COUNT WITH AUTO DIFF* plt 143 10E3/ uL 150-45 0 low Not Available [facility] [address], [place], [address], 04/05/2023 09:50:31 04/03/20 23 04/03/2023 COMPL ETE BLOOD COUNT WITH AUTO DIFF* reflex MANUAL DIFFER ENTIAL Not Available [facility] [address], [place], [address], 04/05/2023 09:50:31 04/03/20 23 04/03/2023 HEMOG LOBIN A1C* hemoglobin A1C 5.8 % 3.7-6. 2 Not Available [facility] [address], [place], [address], 04/05/2023 09:50:32 04/03/2004/03/2023 HEMOG LOBIN A1C* EAG 120 mg/dL Nakia l: 69-11 4 mg/dL Predi abete s: 117-1 37 mg/dL Diabe los: 140 mg/dL or Great er Not Available [facility] [address], [place], [address], 04/05/2023 09:50:32 04/03/20 23 04/03/2023 LIPID PANEL * cholesterol 116 mg/dL <200 Natio nal Bharati stero l Educa tion Progr am (NCEP ) guide lines : Cierra able: <200 mg/dL Borde rline : 200-2 39 mg/dL High: =>240 mg/dL Not Available [facility] [address], [place], [address], 04/05/2023 09:50:33 04/03/20 23 04/03/2023 LIPID PANEL * LDL 56 mg/dL <100 Natio nal Bharati stero l Educa tion Progr am (NCEP ) Guide lines : Optim al: <100 mg/dL Near Optim al: 100 - 129 mg/dL Borde rline : 130 - 159 mg/dL High: 160 - 189 mg/dL Very High: =>190 mg/dL Not Available [facility] [address], [place], [address], 04/05/2023 09:50:33 04/03/20 23 04/03/2023 LIPID PANEL * HDL 54 mg/dL 40-59 Natio nal Bharati stero l Educa tion Progr am (NCEP ) guide lines : Low: <40 mg/dL High: =>60 mg/dL Not Available [facility] [address], [place], [address], 04/05/2023 09:50:33 04/03/20 23 04/03/2023 LIPID PANEL * triglyceride s 56 mg/dL <150 Natio nal Bharati stero l Educa tion Progr am (NCEP ) guide lines : Nakia l: <150 mg/dL Borde rline : 150-1 99 mg/dL High: 200-4 99 mg/dL Very High: =>500 mg/dL Not Available [facility] [address], [place], [address], 04/05/2023 09:50:33 04/03/20 23 04/03/2023 LIPID PANEL * VLDL 11 mg/dL <30 Not Available [facility] [address], [place], [address], 04/05/2023 09:50:33 04/03/20 23 04/03/2023 MAGNE SIUM* magnesium 1.60 mg/dL 1.60-2 .40 Not Available [facility] [address], [place], [address], 04/05/2023 09:50:34 04/03/20 23 04/03/2023 MANUA L DIFFE RENTI AL* seg 71.0 % 50.0-7 0.0 high Not Available [facility] [address], [place], [address], 04/05/2023 09:50:35 04/03/2004/03/2023 MANUA L DIFFE RENTI AL* lymph 13.0 % 18.0-4 2.0 low Not Available [facility] [address], [place], [address], 04/05/2023 09:50:35 04/03/20 23 04/03/2023 MANUA L DIFFE RENTI AL* mono 9.0 % 2.0-11 .0 Not Available [facility] [address], [place], [address], 04/05/2023 09:50:35 04/03/20 23 04/03/2023 MANUA L DIFFE RENTI AL* eos 6.0 % 1.0-3. 0 high Not Available [facility] [address], [place], [address], 04/05/2023 09:50:35 04/03/20 23 04/03/2023 MANUA L DIFFE RENTI AL* baso 0.0 % 0.0-2. 0 Not Available [facility] [address], [place], [address], 04/05/2023 09:50:35 04/03/20 23 04/03/2023 MANUA L DIFFE RENTI AL* segabs 3.65 K/uL 2.30-8 .10 Not Available [facility] [address], [place], [address], 04/05/2023 09:50:35 04/03/20 23 04/03/2023 MANUA L DIFFE RENTI AL* lymphabs 0.67 K/uL 0.80-4 .80 low Not Available [facility] [address], [place], [address], 04/05/2023 09:50:35 04/03/2004/03/2023 MANUA L DIFFE RENTI AL* monoabs 0.46 K/uL 0.45-1 .30 Not Available [facility] [address], [place], [address], 04/05/2023 09:50:35 04/03/20 23 04/03/2023 MANUA L DIFFE RENTI AL* eosabs 0.31 K/uL 0.00-0 .40 Not Available [facility] [address], [place], [address], 04/05/2023 09:50:35 04/03/20 23 04/03/2023 MANUA L DIFFE RENTI AL* basoabs 0.00 K/uL 0.00-0 .10 Not Available [facility] [address], [place], [address], 04/05/2023 09:50:35 04/03/20 23 04/03/2023 MANUA L DIFFE RENTI AL* meta 1.0 % Not Available [facility] [address], [place], [address], 04/05/2023 09:50:35 04/03/20 23 04/03/2023 MANUA L DIFFE RENTI AL* metaabs 0.05 K/uL Not Available [facility] [address], [place], [address], 04/05/2023 09:50:35 03/05/20 23 03/04/2023 CT, brain , w/o contr ast No observ ation record ed. [email or web address] [place], [place] [address] [address], [place], [address], 04/02/2023 08:47:01 05/18/20 23 2023 MAMMO , scree sonu, digit al, bilat eral No observ ation record ed. [email or web address] [facility] [address] [facility] [address], [place], [address], 05/28/2023 10:00:11 10/12/20 23 10/10/2023 DEXA No observ ation record ed. [email or web address] [facility] [address] [facility] [address], [place], [address], 10/12/2023 17:37:08 Result Notes None recorded. 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 7957510430 Completed 202106/24/2023 JANNETH Linda, PMHNP-BC [address] [place], [address] , [facility] 3 11:08:17 Chronic obstructi ve pulmonary disease 65451094 Active 2021 Not Available [facility] 4 04:19:09 Atrial fibrillat ion 97657702 Completed 202106/24/2023 JANNETH Linda, PMHNP-BC [address] [place], [address] , [facility] 3 11:08:12 Multiple complicat ions due to type 2 diabetes mellitus Completed 202106/24/2023 JANNETH Linda, PMHNP-BC [address] [place], [address] , [facility] 3 11:08:57 Congestiv e heart failure 91020035 Completed 202106/24/2023 Paulette LibbyJANNETH Lal, PMHNP-BC [address] [place], [address] , [facility] 3 11:08:27 Allergic conjuncti vitis 425979623 Active 2021 Not Available [facility] 4 04:19:09 Allergic rhinitis 47627122 Active 2021 Not Available [facility] 4 04:19:09 Hemorrhoi ds 36824447 Completed 202106/24/2023 Paulette Jones JANNETH Prieto, PMHNP-BC [address] [place], [address] , [facility] 3 11:08:55 Hyperlipi demia 65108430 Completed 202106/24/2023 Paulette Goldman JANNETH Prieto, PMHNP-BC [address] [place], [address] , [facility] 3 11:09:55 Essential hypertens ion 63581387 Active 2021 Not Available [facility] 4 04:19:09 Complicat ion due to diabetes mellitus 79365668 Active 2021 Not Available [facility] 4 04:19:09 Osteoporo sis 49583126 Active 2021 Not Available [facility] 4 04:19:09 Restless legs 94602510 Active 2021 Not Available [facility] 4 04:19:09 Altered bowel function 59408543 Completed 202206/24/2023 Paulette SouzaJANNETH Lal, PMHNP-BC [address] [place], [address] , [facility] 3 11:09:14 Urinary incontine nce 501593929 Active 2022 Not Available [facility] 4 04:19:09 Osteoarth ritis of multiple joints 444219070 Active 2022 Not Available [facility] 4 04:19:09 Vitamin D deficienc y 41784074 Active 2022 Not Available [facility] 4 04:19:09 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 Procedures Surgical History Date Name Laterality Status Provider Name and Address Organization Details Recorded Time Pacemaker completed Harithadee dee Kincaid [facility] 05/12/2022 14:47:46 open heart surgery completed Harithadee dee Kincaid [facility] 05/12/2022 14:47:57 total hysterectomy completed Harithadee dee Kincaid [facility] 05/12/2022 14:48:52 arterial embolectomy completed Paulette Prieto, GLOVE PRESSER-BC, PMHNP-BC [address] [place], [address] 06/14/2022 10:03:38 Appendectomy completed Alliealexander Deshpande [facility] 12/04/2022 09:38:03 extraction of cataract completed Allie Deshpande [facility] 12/04/2022 09:38:37 replacement of valved cardiac conduit completed Allie Deshpande [facility] 12/04/2022 09:39:16 total abdominal hysterectomy with bilateral salpingo-oophorec joyce completed Allie Deshpande [facility] 12/04/2022 09:40:14 Imaging Results None recorded. Procedure Notes None recorded. Medical Equipment None Reported. Allergies Allergen ID Allergen Name Allergen Category Reaction Reaction Severity Criticality Documentation Date Start Date Code Code System Note Provider Name and Address Organization Details Recorded Time 5022 codeine medicatio n abdominal pain nausea vomiting Not available mild Not available Not available 05/12/2022 2670 RxNorm Harithadee dee Kincaid [facility] 2 08:39:37 5952 doxycycli ne Not available vomiting Not available Not available 01/31/2023 3640 RxNorm Analyn Joseph Benjamin [facility] 12:20:22 Medications Name Sig Start Date Stop [...] e 137 mcg (0.1 %) nasal spray [place] 2 sprays twice a day by intranas [...] 2022 active Not Available Not Available Not Dana bunn Hemorrhoi yakov (phenylep h-cocoa) 0.25 %-88.44 % [...] Not Available Not Available No t Available Marcella Swenson U-100 Insulin 100 unit/mL (3 mL) subcutane [...] 2021 active Not Available Not Available Not Dana bunn Ozempic 1 mg/dose (4 mg/3 mL) subcutane [...] 97.5 [degF] 118 mm[Hg] 68 mm[Hg] [facility] 3 10:06:54 Date Recorded Body height Body mass index (BMI) Body weight Heart rate Respiratory rate Oxygen saturation Oxygen saturation in Arterial blood by Pulse oximetry Body temperature Systolic blood pressure Diastolic blood pressure Provider Name and Address Organization Details Last Updated DateTime 3 165.1 cm 26.8 kg/m2 17947.3 7 g 75 /min 16 /min 99 % 99 % 97.3 [degF] 122 mm[Hg] 78 mm[Hg] [facility] 3 10:21:51 Date Recorded Body height Heart rate Respiratory rate Oxygen saturation Oxygen saturation in Arterial blood by Pulse oximetry Body temperature Body mass index (BMI) Body weight Systolic blood pressure Diastolic blood pressure Provider Name and Address Organization Details Last Updated DateTime 3 165.1 cm 64 /min 16 /min 96 % 96 % 97.3 [degF] 28.1 kg/m2 92732.6 7 g 124 mm[Hg] 78 mm[Hg] [facility] 3 09:59:14 Date Recorded Body height Heart rate Respiratory rate Oxygen saturation Oxygen saturation in Arterial blood by Pulse oximetry Body temperature Systolic blood pressure Diastolic blood pressure Provider Name and Address Organization Details Last Updated DateTime 3 165.1 cm 75 /min 16 /min 93 % 93 % 98.3 [degF] 138 mm[Hg] 80 mm[Hg] Tom [facility] 3 11:35:52 Date Recorded Body mass index (BMI) Body weight Provider Name and Address Organization Details Last Updated DateTime 06/25/2023 28.3 kg/m2 34948.42 g Gavino Boyce [place] Jolanta Souza [facility] 06/25/2023 11:43:05 Date Recorded Body height Heart rate Respiratory rate Oxygen saturation Oxygen saturation in Arterial blood by Pulse oximetry Body temperature Systolic blood pressure Diastolic blood pressure Provider Name and Address Organization Details Last Updated DateTime 3 165.1 cm 66 /min 16 /min 96 % 96 % 97.7 [degF] 118 mm[Hg] 76 mm[Hg] Gavino Boyce [facility] 3 11:19:23 Social History Question Answer Notes LastModified by Organizat ion Details LastModified Time Tobacco Smoking Status Former Smoker Renay Kincaid [facility] 05/12/2022 14:55:35 How Many Years Have You Consumed Alcohol? 50 [email or web address] Information not available 05/12/2022 Are You Currently Sexually Active With Anyone Who Has Traveled (within The Last 12 Weeks) To A Zika-affected Area? No [email or web address] Information not available 05/12/2022 Do You Wear A Helmet When Biking? Yes [email or web address] Information not available 05/12/2022 Are You Blind Or Do You Have Difficulty Seeing? No [email or web address] Information not available 05/12/2022 Is Blood Transfusion Acceptable In An Emergency? Yes [email or web address] Information not available 05/15/2022 What Is Your Level Of Caffeine Consumption? Occasional [email or web address] Information not available 05/12/2022 What Type Of Cooker Loader Do You Use? None [email or web address] Information not available 05/12/2022 In The 14 Days Before Symptom Onset, Have You Had Close Contact With A Laboratory-confir med COVID-19 While That Case Was Ill? No [email or web address] Information not available 05/12/2022 In The 14 Days Before Symptom Onset, Have You Had Close Contact With A Person Who Is Under Investigation For COVID-19 While That Person Was Ill? No [email or web address] Information not available 05/12/2022 Have You Been To An Area Known To Be High Risk For COVID-19? No Information not available 05/12/2022 Are You Deaf Or Do You Have Serious Difficulty Hearing? No [email or web address] Information not available 05/12/2022 What Type Of Diet Are You Following? [employer] Watches Greens. Information not available 05/12/2022 Have You Processed Blood Or Body Fluids From An Ebola Virus Disease Patient Without Appropriate PPE? No [email or web address] Information not available 05/12/2022 Do You Reside In Or Have You Traveled To An Area Where Ebola Virus Transmission Is Active? No [email or web address] Information not available 05/12/2022 What Is The Highest Grade Or Level Of School You Have Completed Or The Highest Degree You Have Received? [id number] [email or web address] Information not available 05/12/2022 Have There Been Any Changes To Your Family Or Social Situation? Yes [email or web address] Information no t available 05/12/2022 What Is The Fluoride Status Of Your Home? Unknown Information not available 05/12/2022 When Did You Quit Smoking? 16+yearssince lastcigarette [email or web address] Information not available 05/15/2022 Are There Any Guns Present In Your Home? No [email or web address] Information not available 05/12/2022 Which Of Your Hands Is Dominant? Right [email or web address] Information not available 05/12/2022 Have You Recently Or Are You Planning To Travel To An Area With Zika Virus? No [email or web address] Information not available 05/12/2022 Do You Use Insect Repellent Routinely? No [email or web address] Information not available 05/12/2022 Do You Have A Medical Power Of Linux Server Administrator? Yes Information not available 05/15/2022 What Was The Date Of Your Most Recent Tobacco Screening? 03/05/2023 [email or web address] Information not available 03/05/2023 How Many Children Do You Have? 2 [email or web address] Information not available 05/12/2022 What Is Your Current Pack Years? 30ormorepacky ears [email or web address] Information not available 12/07/2022 Have You Ever Been Counseled For Unhealthy Alcohol Use? No [email or web address] Information not available 05/15/2022 Do You Have Any Pets? No [email or web address] Information not available 05/12/2022 What Is Your Relationship Status? [email or web address] Information not available 05/12/2022 Do You Use Your Seat Belt Or Car Seat Routinely? Yes [email or web address] Information not available 05/12/2022 Are You Sexually Active? No [email or web address] Information not available 05/12/2022 Do You Have Smoke And Carbon Monoxide Detectors In Your Home? Yes [email or web address] Information not available 05/12/2022 At What Age Did You Start Smoking Tobacco? 16 [email or web address] Information not available 05/12/2022 Are You Passively Exposed To Smoke? No [email or web address] Information no t available 05/12/2022 Do You Participate In Social Media? Yes [email or web address] Information not available 05/15/2022 What Types Of Sporting Activities Do You Participate In? Group Therapy [email or web address] Information not available 05/12/2022 Do You Use Sunscreen Routinely? No [email or web address] Information not available 05/12/2022 How Many Years Have You Smoked Tobacco? 10 Information not available 05/12/2022 Have You Recently Traveled Abroad? No [email or web address] Information not available 05/12/2022 Do You Have Difficulty Walking Or Climbing Stairs? Yes [email or web address] Information not available 05/12/2022 Are You Currently In School? No [email or web address] Information not available 05/12/2022 Do You Have Any Dietary Restrictions? No [email or web address] Information not available 05/12/2022 Sex: Female Functional Status Question Answer Note LastModified by Organizat ion Details LastModified Time Do you use any illicit or recreational drugs? No [email or web address] Information not available 05/12/2022 Do you or have you ever used any other forms of tobacco or nicotine? No [email or web address] Information not available 05/12/2022 What is your level of alcohol consumption? Occasional Less than 1 drink per day [email or web address] Information not available 07/10/2023 Are you currently employed? No [email or web address] Information not available 05/12/2022 Do you have transportation difficulties? Yes Information not available 05/12/2022 Are you able to walk? YESASSIST [email or web address] Information not available 05/12/2022 Do you have difficulty doing errands alone? Yes Information not available 05/12/2022 Are you able to care for yourself? Yes [email or web address] Information n ot available 05/12/2022 Do you have difficulty dressing or bathing? Yes [email or web address] Information not available 05/12/2022 What is your exercise level? None [email or web address] Information not available 05/12/2022 Mental Status Question Answer Note LastModified by Organizat ion Details LastModified Time Do you feel stressed (tense, restless, nervous, or anxious, or unable to sleep at night)? [id number] [email or web address] Information not available 05/12/2022 Do you have difficulty concentrating, remembering or making decisions? Yes [email or web address] Information no t available 05/12/2022 Family History Relationship Description Onset Age of this Age Resolved Age Notes LastModified by Organization Details LastModified Time Father Intracranial aneurysm [email or web address] Not available 04/26 14:51:37 Daughter Myocardial infarction 48 [email or web address] Not available 14:57:47 Daughter Hypertensive disorder [email or web address] Not available 04/26 14:58:09 Daughter Anxiety [email or web address] Not avail able 05/12/2022 14:58:19 Daughter Depressive disorder [email or web address] Not available 04/26 14:58:27 Daughter Coronary atherosclero sis [email or web address] Not available 2021 19:25:18 Brother Heart disease Not available 2021 19:25:01 Mother Heart disease [email or web address] Not available 2021 19:25:34 Mother Hypertensive disorder [email or web address] Not available 2021 19:25:43 Mother Hyperlipidem ia [email or web address] Not available 2022 09:41:15 Mother Unexplained visual loss [email or web address] Not available 07/2023 09:41:45 Mother History of macular degeneration Not available 07/2023 09:42:55 Mother Coronary arterioscler osis [email or web address] Not available 2022 09:43:24 Mother Cataract [email or web address] Not available 07/10/2023 09:27:58 Maternal Grandmother Diabetes mellitus Not available 2022 09:42:04 Unspecified Relation Disorder of thyroid gland [email or web address] Not available 2022 09:43:51 Medical History Condition Response Hematological Diseases / Disorders Y Urinary Incontinence Y Depression Y Pneumonia Y UTI Y Rheumatic Diseases / Disorders Y Atherosclerosis of [place] co ronary artery of [place] heart without angina pectoris Y Obstructive Sleep Apnea Y Gynecological Diseases / Disorders Y Chronic Obstructive Pulmonary Disease (C OPD) Y Musculoskeletal Diseases / Disorders Y AICD / Pacemaker Y Cancer Y Cellulitis Y Cardiac Diseases / Disorders Y Vitamin deficiency Y Eye Disease / Disorders Y Allergies/Hayfever Y Sepsis Y Cerebrovascular Accident (CVA) Y Hospitalizations Y Vascular Diseases / Disorders Y Pulmonary Diseases / Disorders Y Anemia Y Diabetes Y Cataracts Y Gastrointestinal Diseases / Disorders Y Infectious Disease/Disorders/Virus Y Myocardial Infarction Y Congestive Heart Failure (CHF) Y Hyperlipidemia Y Insomnia Y Skin Diseases / Disorders Y Dementia Y Asthma Y Foot Diseases / Disorders Neurological Diseases / Disorders Y Neuropathy Y Hypertension Y Osteoporosis Y Atrial Fibrillation / AFIB Y Gynecological HistoryNo gynecological history recorded. Obstetrics History GPAL:G 0 P 0 0 0 0 Immunizations Vaccine Type Date Status Note Provider Nam e and Address Organization Details Recorded Time COVID-19, mRNA, LNP-S, PF, 30 mcg/0.3 mL dose 1 completed Not Available [facility] 12/04/2023 04:19:09 COVID-19, mRNA, LNP-S, PF, 30 mcg/0.3 mL dose 1 completed Not Available [facility] 12/04/2023 04:19:09 pneumococcal polysaccharide PPV23 8 completed Not Available [facility] 12/04/2023 04:19:09 pneumococcal polysaccharide PPV23 1 completed Not Available [facility] 12/04/2023 04:19:09 pneumococcal polysaccharide PPV23 7 completed Not Available [facility] 12/04/2023 04:19:09 pneumococcal polysaccharide PPV23 6 completed Not Available [facility] 12/04/2023 04:19:09 pneumococcal polysaccharide PPV23 8 completed Not Available [facility] 12/04/2023 04:19:09 Pneumococcal conjugate PCV 13 5 completed Not Available [facility] 12/04/2023 04:19:10 Td(adult) unspecified formulation 3 completed Not Available [facility] 12/04/2023 04:19:10 Td(adult) unspecified formulation 9 completed Not Available [facility] 12/04/2023 04:19:10 Td(adult) unspecified formulation 9 completed Not Available [facility] 12/04/2023 04:19:10 Tdap 1 completed Not Available [facility] 12/04/2023 04:19:10 tetanus toxoid, unspecified formulation 3 completed Not Available [facility] 12/04/2023 04:19:10 Influenza, split virus, quadrivalent, preservative 0 completed Not Available [facility] 12/04/2023 04:19:09 COVID-19, mRNA, LNP-S, PF, 30 mcg/0.3 mL dose 1 completed Not Available [facility] 12/04/2023 04:19:09 COVID-19, mRNA, LNP-S, PF, 30 mcg/0.3 mL dose 2 completed Not Available [facility] 12/04/2023 04:19:09 Tdap 2 completed Not Available [facility] 12/04/2023 04:19:10 influenza, unspecified formulation 3 completed Not Available [facility] 12/04/2023 04:19:10 influenza, unspecified formulation 4 completed Not Available [facility] 12/04/2023 04:19:10 influenza, unspecified formulation 5 completed Not Available [facility] 12/04/2023 04:19:10 influenza, unspecified formulation 8 completed Not Available [facility] 12/04/2023 04:19:10 influenza, unspecified formulation 9 completed Not Available [facility] 12/04/2023 04:19:10 influenza, unspecified formulation 1 completed Not Available [facility] 12/04/2023 04:19:10 Past Encounters Encounter ID Performer Location Encounter Start Date Encounter Closed Date Diagnosis/Indication Diagnosis SNOMED-CT Code Diagnosis ICD10 Code Diagnosis Note [id number] Paulette Prieto, GLOVE PRESSER-BC, PMHNP-BC [facility] [address] [place] [address] 05/15/2022 06:37:58 05/16/2022 08:31:18 Adult health examination 831772589 Z00.00 Advance care planning 71 7241486 Z71.89 Neck pain 37634423 M54.2 X-ray ordered s/p fall and having continued pain. Pain of ri ght shoulder joint [id number] 3957184 M25.511 X-ray ordered s/p fall and having continued pain. 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 Slowly needs to rebuild strength and endurance. Muscle atrophy 60150162 M62.50 therapy ordered as Vandana has long haulers. Slowly needs to rebuild strength and endurance. Moderate c hronic obstructive pulmonary disease 016741344 J44.9 nebulizer ordered to help with breathing. Orders sent to [facility]. Will be mailed to patient. Multiple complications due to type 2 diabetes mellitus 054599834 E11.8 taking medication s. labs to eval levels. 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 Slowly needs to rebuild strength and endurance which has been complicate d by recent hospitaliz ation. Hematoma o f rectus sheath 185526857 S30.1XXD Rechecking blood counts Chronic ob structive pulmonary disease 99950467 J44.9 Duoneb for COPD. It was not on her discharge list but want this medication continued. Medication was sent through [facility] so it would not cost her anything and run through part B vs D. Atrial fibrillation 4943 6004 I48.91 managed by cardiology . Warfarin levels have changed and no longer on Lovenox. [id number] LILLIANA Linda-BC, PMHNP-BC [facility] [address] [place] [address] 07/10/2022 12:19:02 07/11/2022 17:16:25 Congestive heart failure 93396790 I50.9 Multiple complications due to type 2 diabetes mellitus 942337229 E11.8 Changes to medication s made. Farxiga instead as it provides kidney protection in addtion to DM and heart. Moderate c hronic obstructive pulmonary disease 053351677 J44.9 Changing duonebs to PRN [id number] Paulette Prieto [facility], [facility] [address] [address] 08/07/2022 09:34:32 08/07/2022 15:59:34 Allergic rhinitis 52751690 J30.9 Significan t post nasal drip. Given Flonase and Azelastine to help dry up significan t nasal mucous. Allergic conjunctivitis 426816009 H10.13 Pataday eye drops for eye allergies. Will help with itchy watery eyes. Open wound of nasal cavity 346122065 S01.20XA Counseled on not picking at nose. ABX ointment to area. Altered karen wel function 41576878 R19.4 stool culture to r/o Hemorrhoids 89656780 K64 .9 anusol to help with hemorrhoid s. If no [place] [id number] Paulette Prieto [facility], [facility] [address] [place] [address] 08/28/2022 06:55:06 08/28/2022 14:01:33 Allergic rhinitis 75834818 J30.9 Flonase and Azelastine to help dry up significan t nasal mucous. Allergic conjunctivitis 305681520 H10.13 Pataday eye drops for eye allergies. Open wound of nasal cavity 000924440 S01.20XD Counseled on not picking at nose. ABX ointment to area which is helping. Hemorrhoids 78650297 K64 .9 has been helping. Hyperlipidemia 88950988 E78.5 taking medication s. labs to eval levels. Essential hypertension 43136871 I10 taking medication s. labs to eval levels. Complicati on due to diabetes mellitus 82193185 E11.8 taking medication s. labs to eval levels. Osteoporosis 19779732 M8 1.0 Return back to pill form until Prolia is approved at an amount that is doable. [id number] [facility] [address] [place] [address] 09/25/2022 06:54:25 09/26/2022 20:06:50 Complication due to diabetes mellitus 24991893 E11.8 taking medication s. labs to eval levels. Essential hypertension 68824517 I10 taking medication s. labs to eval levels. Hyperlipidemia 69670751 E78.5 taking medication s. labs to eval levels. 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 Requires diabetic shoes with inserts. Has poor circulatio n with DX of PAD/PVD.I am managing and treating this patient s diabetes under a comprehens lennox plan of care. This patient requires diabetic shoes and heat-molde d or custom-mol ded inserts to help prevent ulcers and further complicati ons. [id number] [facility] [address] [place] [address] 10/23/2022 06:54:10 10/24/2022 21:23:00 Complication due to diabetes mellitus 98635140 E11.8 A1C is really well at 6.1. Continue Ozempic. Allergic rhinitis 880300 04 J30.9 Fluticason e and Azelastine together. Counseled on how to do and administer to provide therapeuti c benefit. Restless legs 99615327 G 25.81 Increasing Ropinirole to 0.5 mg q HS. Was having some benefits on lower dose but not providing a significan t benefit. [id number] Paulette Prieto [facility] [address] [place] [address] 11/13/2022 06:54:53 11/14/2022 08:46:40 Allergic rhinitis 05908822 J30.9 Fluticason e and Azelastine together. Has been having some improvemen ts. Will see how it goes after LOADING DOCK HELPER evaluates. Restless legs 86799677 G 25.81 Noting improvemen ts but still having increasing episodes. Increased Ropinirole to 1 mg q hS. Choking 329883142 R09.89 Will have LOADING DOCK HELPER eval and tx.LOADING DOCK HELPER to eval. If s/sx do not improve will look at possible ENT and/or GI for evaluation . [id number] LILLIANA Linda-BC, PMHNP-BC [facility] [address] [place] [address] 11/30/2022 17:57:51 12/01/2022 15:44:22 Cough 37907501 R05.9 Expiratory wheezing 9763 007 R06.2 Dyspnea at rest 88196588 7 R06.00 [id number] LILLIANA Linda-, PMHNP-BC [facility] [address] [place] [address] 12/12/2022 06:58:16 12/12/2022 21:22:17 Hypertensive crisis 478455187 I16.9 [id number] LILLIANA Linda-BC, PMHNP-BC [facility] [address] [place] [address] 12/20/2022 14:00:18 12/20/2022 19:21:00 Peripheral neuropathy due to type 2 diabetes mellitus 1633034647 107 E11.42 Reviewed pastoral counselor 's note. Requires diabetic shoes with inserts. Has peripheral neuropathy with callus formation d/t Type II DM. I am managing and treating this patient's diabetes under a comprehens lennox plan of care. The patient requires diabetic shoes and either heat-molde d, custom-mol ded, or prefabrica tomi inserts to help prevent ulcers and worsening conditions along with preventing further complicati ons. Urinary incontinence 165 865692 N39.42 Altered karen wel function 50613938 R19.4 [id number] LILLIANA Linda-BC, PMHNP-BC [facility] [address] [place] [address] 01/10/2023 16:44:20 01/11/2023 08:30:55 Urinary incontinence 849613218 N39.42 Altered karen wel function 43499742 R19.4 Applying calmosepti ne to help with protectant . Counseled about bowel training every 2 hours like bladder to see if can decrease accidents. Dysphagia 86300382 R13.1 0 Cough 06831530 R05.9 [id number] Paulette Goldman JANNETH Prieto, PMHNP-BC [facility] [address] [place] [address] 03/05/2023 05:43:13 03/05/2023 18:49:24 Altered bowel function 65953136 R19.4 given the multiple diarrhea BM. Stopping Miralax and Senna. Donepezil can cause some GI upset resulting in diarrhea. Discussed such. Will get off the Miralax and senna. See how she does. Superficia l laceration of head 866541810 S01.91XD No infection noted. Cyst of skin 805615202 L 72.9 Noted on RLE, Lucien evaluated and noted it to be a cyst Osteoarthr itis of multiple joints 615757779 M15.9 pain from OA and fall. APAP to help with pain. Recurrent falls 68134858 2 R29.6 Cough 63904783 R05.9 [id number] Paulette Goldman JANNETH Prieto, PMHNP-TISHA [facility] [place] [address] 04/02/2023 06:42:51 04/02/2023 13:52:57 Complication due to diabetes mellitus 66173411 E11.8 taking medication s. labs to eval levels. Essential hypertension 89753211 I10 taking medication s. labs to eval levels. Hyperlipidemia 64710630 E78.5 taking medication s. labs to eval levels. Vitamin D deficiency 347 75630 E55.9 Screening for osteoporosis 170354405 Z13.820 [id number] Paulette LibbyJANNETH Lal, PMHNP-TISHA [facility] [address] [place] [address] 04/30/2023 06:46:06 04/30/2023 20:11:07 Vitamin D deficiency 36776751 E55.9 Candidal intertrigo 2661 79643 B37.2 [id number] Paulette SouzaJANNETH Lal, [facility] [address] [place] [address] 05/28/2023 08:40:14 05/28/2023 21:28:16 Long-term current use of bisphosphonates 0547988388 96134 Z79.83 Restless legs 57085189 G 25.81 Doing much better with the 1 mg of Ropinirole . Advance care planning 71 7487960 Z71.89 [id number] Paulette Prieto [facility], [facility] [address] [place] [address] 06/25/2023 07:50:25 06/25/2023 18:51:04 Candidiasis of skin 62922752 B37.2 Continued PRN as this provides a benefit often using regularly given the continued rash issues Complicati on due to diabetes mellitus 10042989 E11.8 Recurrent major depression in full remission 03673472 F33.42 Continue medication as this is providing controlled of symptoms. Denies SI/HI. [id number] Paulette Prieto [facility], [facility] [address] [place] [address] 07/17/2023 08:37:29 07/17/2023 18:16:43 Lesion of nose 276379682 J34.89 Candidal intertrigo 2661 02975 B37.2 Health Concerns Section Related Observation LastModified by Organization Detai ls LastModified Time None Recorded Concern Status LastModified by Organization Details LastModified Time None Recorded Advance Directives Directive None Recorded Payers Encounter Date Sequence Insurance Name Policy Number Policy Roth Covered Member ID Roth Member ID Guarantor Name 04/02/2023 1 [place] Kay Winn [id number] Corinne Hensley 04/02/2023 2 AARP (MEDICARE SUPPLEMENT) Kay Winn [id number] Corinne Hensley 04/30/2023 1 [place] [id number] Corinne Hensley 04/30/2023 2 [employer] (MEDICARE SUPPLEMENT) Kay Winn [id number] Corinne Hensley 05/28/2023 1 [place] Kay Winn [id number] Coirnne Hensley 05/28/2023 2 [employer] (MEDICARE SUPPLEMENT) Kay Winn [id number] Corinne Hensley 06/25/2023 1 [place] Kay Winn [id number] Corinne Hensley 06/25/2023 2 [employer] (MEDICARE SUPPLEMENT) Kay Winn [id number] Corinne Hensley 07/17/2023 1 [place] Kay Winn [id number] Corinne Hensley 07/17/2023 2 [employer] (MEDICARE SUPPLEMENT) Kay Winn [id number] Corinne Hensley Notes Date Note Type Note Provider Name and Address Organization Details Recorded Time 04/02/2023 text/html HLD - Compliant with statin. No side effects.HTN - Compliant with medications. Does not report any MCKENNA, blurry vision, dizziness, CP, SOB, or palpitations.DM - taking medications and A1C has been much better with Ozempic on board. Paulette Prieto GLOVE PRESSER-BC, PMHNP-BC [address] [place], [address], [facility] 04/02/2023 12:01:26 04/30/2023 text/html Breast Rash - Ju dy reports having a rash under R breast that she has been putting medication on but has not helped. It continues to itch.Vitamin D - noted to low on routine labs. Paulette Prieto GLOVE PRESSER-BC, PMHNP-BC [address] [place], [address], [facility] 04/30/2023 12:46:22 05/28/2023 text/html osteoporosis - taking medications and concerned about where her bones are.reports having some palpable lumps under what she describes as a notch under neck.RLS - doing very well with the medication. Paulette Prieto GLOVE PRESSER-BC, PMHNP-BC [address] [place], [address], [facility] 05/28/2023 17:30:31 06/25/2023 text/html Evan - has intermittent episodes that pop up under breasts and pannus. Powder has been helpingMDD - taking Lexapro and doing very well. Has continued to feel upbeat daily. Denies SI/HI. Paulette Prieto, GLOVE PRESSER-BC, PMHNP-BC [address] [place], [address], [facility] 06/25/2023 15:51:44 07/17/2023 text/html Small open sore in nose - bothersome and having soreness. has been difficult not to pick at it. Evan - continues to be problematic for under R breast Paulette Prieto, GLOVE PRESSER-BC, PMHNP-BC [address] [place], [address], [facility] 07/17/2023 14:13:21 OBGyn Episode No OBEpisode recorded.
--- OUTSIDE RECORDS SUMMARY | 2025-04-30 17:02 | XMS_ITS | Encounter Summary ---
Author Organization [facility] Address [address] [facility] [address] [facility] [place] [address] Phone Care Team Providers Care Net Web Developer Name Role Phone Dariel De Souza MD Primary Care Provider [phone] Bebo Hansen MD Primary Care Provider [phone] Juana Mesa MD Primary Care Provider [phone] Juana Mesa MD Primary Care Provider [phone] Sharlene Meléndez LPN Unavailable [phone] Sharlene Meléndez LPN Unavailable [phone] Lissette Riley Unavailable No, Physician Primary Care Provider [phone] Paulette Prieto TEXTURE ARTIST Primary Care Provider [phone] Meredith Aburto TEXTURE ARTIST Primary Care Provi arlette No, Physician Primary Care Provider Encounter Details Date Type Department Care Team (Late st Contact Info) Description 06/04/2015 Orders Only [facility] CLINCONV Provider, MD Dwayne [address] [place] [address] Social History Tobacco Use Types Packs/Day Years Used Date Smoking Tobacco: Never Assessed Alcohol Use Standard Drinks/Week Comments Yes 0 (1 standard drink = 0.6 oz pur e alcohol) Comments Unknown Sex and Gender Information Value Date Recorded Sex Assigned at Not on file Legal Sex Female 9:08 AM BLOCK TESTER Gender Identity Female 06/25/2019 7:13 AM CDT [...] diarrhea 04/18/2017 04/17/2017 12/30/2021 2 :39 PM BLOCK TESTER COVID: Suspected 07/05/2020 07/05/2020 07/19/2020 3:05 AM CDT COVID: Suspected 07/01/2021 07/01/2021 07/01/2021 2:38 PM CDT COVID: Suspected 07/01/2021 07/01/2021 07/01/2021 9:10 PM CDT COVID19 07/01/2021 07/01/2021 07/15/2021 3:05 AM CDT COVID: Recovered Comment:Added based on recent COVID infection. 07/15/2021 07/15/2021 11/12/2021 3:[address] COVID: Suspected 11/28/2021 11/28/2021 11/28/2021 7:00 PM BLOCK TESTER COVID19 11/28/2021 11/28/2021 12/12/2021 3:05 AM BLOCK TESTER COVID: Recovered Comment:Added based on recent COVID infection. 12/12/2021 12/12/2021 04/11/2022 3:05 AM C DT COVID: Suspected 07/05/2022 07/05/2022 07/05/2022 10:39 PM CDT MRSA 07/06/2022 07/06/2022 01/02/2023 3:05 AM BLOCK TESTER COVID19 12/02/2022 12/02/2022 12/13/2022 3:05 AM BLOCK TESTER COVID: Recovered Comment:Added based on recent COVID infection. 12/13/2022 12/15/2022 03/13/2023 3:05 AM C DT Exposure, COVID-19 Comment:No direct exposure. Pt in COVID recovery window. No concern for new infection. Ana Aguilera 01/15/2023 Added automatically based on COVID19 lab answers indicating exposure risk 01/14/2023 01/14/2023 01/15/2023 10:17 AM BLOCK TESTER COVID: Suspected 01/14/2023 01/14/2023 01/14/2023 6:42 PM BLOCK TESTER Human metapneumovirus, conta ct + droplet 01/14/2023 01/14/2023 01/21/2023 3:[address] COVID: Suspected 01/30/2023 01/30/2023 01/30/2023 10:06 PM BLOCK TESTER documented as of this encounter Care Teams Net Web Developer Relationship Specialty Start Date End Date Dariel De Souza MD [address] [facility] [address] [place] [address] PCP - General 11/06/07 06/14/17 Bebo Hansen MD [address] [facility] [address] [place] [address] PCP - General 06/15/17 10/16/17 Juana Mesa MD [address] [facility] [address] [place] [address] PCP - General 10/17/17 11/25/17 Juana Mesa MD [address] [facility] [address] [place] [address] PCP - General 11/26/17 10/26/18 No, Physician PCP - General 06/20/22 06/21/22 Paulette Prieto NP [address] [place] [address] PCP - General Nurse Practitioner 06/22/22 08/16/23 Meredith Aburto NP [address] [place] [address] PCP - General Family Medicine 08/17/23 09/11/24 No, Physician PCP - General 09/12/24 Sharlene Meléndez LPN [address] [facility] [address] [place] [address] Hand Iii Cutter 07/02/18 07/02/18 Sharlene Meléndez LPN [address] [facility] [address] [place] [address] Hand Iii Cutter 11/05/19 11/05/19 Lissette Riley [address] [facility] [address] [place] [address] ACO Care Supervisor Finishing 01/15/20 01/15/20 documented as of this encounter
--- OUTSIDE RECORDS SUMMARY | 2025-04-30 17:02 | XMS_ITS | Encounter Summary ---
Author Organization [facility] Facility Care Team Providers Care Mill Order Scheduler Name Role Phone Juana Mesa MD Primary Care Provider [phone] Sharlene Meléndez SPLITTING MACHINE TENDER Unavailable [phone] Sharlene Meléndez SPLITTING MACHINE TENDER Unavailable [phone] Lissette Riley Unavailable No, Physician Primary Care Provider [phone] Paulette Prieto AUTOMOTIVE LOT ATTENDANT Primary Care Provider [phone] Meredith Aburto AUTOMOTIVE LOT ATTENDANT Primary Care Provi arlette No, Physician Primary Care Provider [phone] Encounter Details Date Type Department Care Team (Latest Contact Info) Description 12/25/2017 Orders Only [facility] CLINCONV ProviderDwayne MD [address] [place] [address] Social History Tobacco Use Types Packs/Day Years Used Date Smoking Tobacco: Never Assessed Alcohol Use Standard Drinks/Week Comments Yes 0 (1 standard drink = 0.6 oz pur e alcohol) Comments Unknown Sex and Gender Information Value Date Recorded Sex Assigned at Not on file Legal Sex Female 9:08 AM BINMAN Gender Identity Female 06/25/2019 7:13 AM CDT Sexual Orientation Not on file documented as of this encounter Plan of Treatment Not on file documented as of this encounter Procedures Procedure Name Priority Date/Time Associated Diagnosis Comments SCAN - LABS 12/25/2017 12:00 AM BINMAN documented in this encounter Results * SCAN - LABS (12/25/2017 12:00 AM BINMAN) Narrative 12/25/2017 12:00 AM BINMAN Ordered by an unspecified provider. us Historical Provider Final Res ult documented in this encounter Visit Diagnoses Not on filedocumented in this encounter Additional Health Concerns Infection Onset Date Last Indicated Resolved Time C. difficile Comment:No further diarrhea 04/18/2017 04/17/2017 12/30/2021 2 :39 PM BINMAN COVID: Suspected 07/05/2020 07/05/2020 07/19/2020 3:05 AM CDT COVID: Suspected 07/01/2021 07/01/2021 07/01/2021 2:38 PM CDT COVID: Suspected 07/01/2021 07/01/2021 07/01/2021 9:10 PM CDT COVID19 07/01/2021 07/01/2021 07/15/2021 3:05 AM CDT COVID: Recovered Comment:Added based on recent COVID infection. 07/15/2021 07/15/2021 11/12/2021 3:[address] COVID: Suspected 11/28/2021 11/28/2021 11/28/2021 7:00 PM BINMAN COVID19 11/28/2021 11/28/2021 12/12/2021 3:05 AM BINMAN COVID: Recovered Comment:Added based on recent COVID infection. 12/12/2021 12/12/2021 04/11/2022 3:05 AM C DT COVID: Suspected 07/05/2022 07/05/2022 07/05/2022 10:39 PM CDT MRSA 07/06/2022 07/06/2022 01/02/2023 3:05 AM BINMAN COVID19 12/02/2022 12/02/2022 12/13/2022 3:05 AM BINMAN COVID: Recovered Comment:Added based on recent COVID infection. 12/13/2022 12/15/2022 03/13/2023 3:05 AM C DT Exposure, COVID-19 Comment:No direct exposure. Pt in COVID recovery window. No concern for new infection. Ana Aguilera 01/15/2023 Added automatically based on COVID19 lab answers indicating exposure risk 01/14/2023 01/14/2023 01/15/2023 10:17 AM BINMAN COVID: Suspected 01/14/2023 01/14/2023 01/14/2023 6:42 PM BINMAN Human metapneumovirus, conta ct + droplet 01/14/2023 01/14/2023 01/21/2023 3:[address] COVID: Suspected 01/30/2023 01/30/2023 01/30/2023 10:06 PM BINMAN documented as of this encounter Care Teams Mill Order Scheduler Relationship Specialty Start Date End Date Juana Mesa MD [address] [facility] [address] [place] [address] PCP - General 11/26/17 10/26/18 No, Physician PCP - General 06/20/22 06/21/22 Paulette Prieto, CARMEN [address] [place] [address] PCP - General Nurse Practitioner 06/22/22 08/16/23 Meredith Aburto NP [address] [place] [address] PCP - General Family Medicine 08/17/23 09/11/24 No, Physician PCP - General 09/12/24 Sharlene Meléndez LPN [address] [facility] [address] [place] [address] Trailer Sections Assembler 07/02/18 07/02/18 Sharlene Meléndez LPN [address] [facility] [address] [place] [address] Trailer Sections Assembler 11/05/19 11/05/19 Lissette Riley [address] [facility] [address] [place] [address] ACO Care Material Requirements Planning Manager 01/15/20 01/15/20 documented as of this encounter
--- OUTSIDE RECORDS SUMMARY | 2025-04-30 17:02 | XMS_ITS | Encounter Summary ---
Author Organization [facility] Facility Care Team Providers Care Rerolling Machine Operator Name Role Phone Juana Mesa MD Primary Care Provider [phone] Sharlene Meléndez LPN Unavailable [phone] Lissette Riley Unavailable No, Physician Primary Care Provider [phone] Paulette Prieto LAWN MOWER Primary Care Provider [phone] Meredith Aburto LAWN MOWER Primary Care Provi arlette No, Physician Primary Care Provider [phone] Encounter Details Date Type Department Care Team (Latest Contact Info) Description 08/06/2018 Orders Only [facility] CLINCONV ProviderDwayne MD [address] [place] [address] Social History Tobacco Use Types Packs/Day Years Used Date Smoking Tobacco: Former Smokeless Tobacco: Never Alcohol Use Standard Drinks/Week Comments Yes 0 (1 standard drink = 0.6 oz pur e alcohol) Comments Unknown Sex and Gender Information Value Date Recorded Sex Assigned at Not on file Legal Sex Female 9:08 AM PROFESSIONAL ATHLETE Gender Identity Female 06/25/2019 7:13 AM CDT [...] diarrhea 04/18/2017 04/17/2017 12/30/2021 2 :39 PM PROFESSIONAL ATHLETE COVID: Suspected 07/05/2020 07/05/2020 07/19/2020 3:05 AM CDT COVID: Suspected 07/01/2021 07/01/2021 07/01/2021 2:38 PM CDT COVID: Suspected 07/01/2021 07/01/2021 07/01/2021 9:10 PM CDT COVID19 07/01/2021 07/01/2021 07/15/2021 3:05 AM CDT COVID: Recovered Comment:Added based on recent COVID infection. 07/15/2021 07/15/2021 11/12/2021 3:[address] COVID: Suspected 11/28/2021 11/28/2021 11/28/2021 7:00 PM PROFESSIONAL ATHLETE COVID19 11/28/2021 11/28/2021 12/12/2021 3:05 AM PROFESSIONAL ATHLETE COVID: Recovered Comment:Added based on recent COVID infection. 12/12/2021 12/12/2021 04/11/2022 3:05 AM C DT COVID: Suspected 07/05/2022 07/05/2022 07/05/2022 10:39 PM CDT MRSA 07/06/2022 07/06/2022 01/02/2023 3:05 AM PROFESSIONAL ATHLETE COVID19 12/02/2022 12/02/2022 12/13/2022 3:05 AM PROFESSIONAL ATHLETE COVID: Recovered Comment:Added based on recent COVID infection. 12/13/2022 12/15/2022 03/13/2023 3:05 AM C DT Exposure, COVID-19 Comment:No direct exposure. Pt in COVID recovery window. No concern for new infection. Ana Aguilera 01/15/2023 Added automatically based on COVID19 lab answers indicating exposure risk 01/14/2023 01/14/2023 01/15/2023 10:17 AM PROFESSIONAL ATHLETE COVID: Suspected 01/14/2023 01/14/2023 01/14/2023 6:42 PM PROFESSIONAL ATHLETE Human metapneumovirus, conta ct + droplet 01/14/2023 01/14/2023 01/21/2023 3:[address] COVID: Suspected 01/30/2023 01/30/2023 01/30/2023 10:06 PM PROFESSIONAL ATHLETE documented as of this encounter Care Teams Rerolling Machine Operator Relationship Specialty Start Date End Date Juana Mesa MD [address] [facility] [address] [place] [address] PCP - General 11/26/17 10/26/18 No, Physician PCP - General 06/20/22 06/21/22 Paulette Prieto, CARMEN [address] [place] [address] PCP - General Nurse Practitioner 06/22/22 08/16/23 Meredith Aburto NP [address] [place] [address] PCP - General Family Medicine 08/17/23 09/11/24 No, Physician PCP - General 09/12/24 Sharlene Meléndez LPN [address] [facility] [address] [place] [address] Field Aide 11/05/19 11/05/19 Lissette Riley [facility] [address] [place] [address] ACO Care Submersible Pilot 01/15/20 01/15/20 documented as of this encounter
--- OUTSIDE RECORDS SUMMARY | 2025-04-30 17:02 | XMS_ITS | Encounter Summary ---
Author Organization [facility] Facility Care Team Providers Care Chute Puller Name Role Phone Juana Mesa MD Primary Care Provider [phone] Sharlene Meléndez BLOOD COORDINATOR Unavailable [phone] Sharlene Meléndez BLOOD COORDINATOR Unavailable [phone] Lissette Riley Unavailable No, Physician Primary Care Provider [phone] Paulette Prieto TACTICAL/MOBILE WATCH OFFICER Primary Care Provider [phone] Meredith Aburto TACTICAL/MOBILE WATCH OFFICER Primary Care Provi arlette No, Physician Primary Care Provider [phone] Encounter Details Date Type Department Care Team (Latest Contact Info) Description 01/02/2018 Orders Only [facility] CLINCONV ProviderDwayne MD [address] [place] [address] Social History Tobacco Use Types Packs/Day Years Used Date Smoking Tobacco: Former Alcohol Use Standard Drinks/Week Comments Yes 0 (1 standard drink = 0.6 oz pur e alcohol) Comments Unknown Sex and Gender Information Value Date Recorded Sex Assigned at Not on file Legal Sex Female 9:08 AM SHOP BLACKSMITH Gender Identity Female 06/25/2019 7:13 AM CDT Sexual Orientation Not on file documented as of this encounter Plan of Treatment Not on file documented as of this encounter Procedures Procedure Name Priority Date/Time Associated Diagnosis Comments SCAN - LABS 01/02/2018 12:00 AM SHOP BLACKSMITH documented in this encounter Results * SCAN - LABS (01/02/2018 12:00 AM SHOP BLACKSMITH) Narrative 01/02/2018 12:00 AM SHOP BLACKSMITH Ordered by an unspecified provider. us Historical Provider MD Final Res ult documented in this encounter Visit Diagnoses Not on filedocumented in this encounter Additional Health Concerns Infection Onset Date Last Indicated Resolved Time C. difficile Comment:No further diarrhea 04/18/2017 04/17/2017 12/30/2021 2 :39 PM SHOP BLACKSMITH COVID: Suspected 07/05/2020 07/05/2020 07/19/2020 3:05 AM CDT COVID: Suspected 07/01/2021 07/01/2021 07/01/2021 2:38 PM CDT COVID: Suspected 07/01/2021 07/01/2021 07/01/2021 9:10 PM CDT COVID19 07/01/2021 07/01/2021 07/15/2021 3:05 AM CDT COVID: Recovered Comment:Added based on recent COVID infection. 07/15/2021 07/15/2021 11/12/2021 3:[address] COVID: Suspected 11/28/2021 11/28/2021 11/28/2021 7:00 PM SHOP BLACKSMITH COVID19 11/28/2021 11/28/2021 12/12/2021 3:05 AM SHOP BLACKSMITH COVID: Recovered Comment:Added based on recent COVID infection. 12/12/2021 12/12/2021 04/11/2022 3:05 AM C DT COVID: Suspected 07/05/2022 07/05/2022 07/05/2022 10:39 PM CDT MRSA 07/06/2022 07/06/2022 01/02/2023 3:05 AM SHOP BLACKSMITH COVID19 12/02/2022 12/02/2022 12/13/2022 3:05 AM SHOP BLACKSMITH COVID: Recovered Comment:Added based on recent COVID infection. 12/13/2022 12/15/2022 03/13/2023 3:05 AM C DT Exposure, COVID-19 Comment:No direct exposure. Pt in COVID recovery window. No concern for new infection. Ana Aguilera 01/15/2023 Added automatically based on COVID19 lab answers indicating exposure risk 01/14/2023 01/14/2023 01/15/2023 10:17 AM SHOP BLACKSMITH COVID: Suspected 01/14/2023 01/14/2023 01/14/2023 6:42 PM SHOP BLACKSMITH Human metapneumovirus, conta ct + droplet 01/14/2023 01/14/2023 01/21/2023 3:[address] COVID: Suspected 01/30/2023 01/30/2023 01/30/2023 10:06 PM SHOP BLACKSMITH documented as of this encounter Care Teams Chute Puller Relationship Specialty Start Date End Date Juana Mesa MD [address] [facility] [address] [place] [address] PCP - General 11/26/17 10/26/18 No, Physician PCP - General 06/20/22 06/21/22 Paulette Prieto, CARMEN [address] [place] [address] PCP - General Nurse Practitioner 06/22/22 08/16/23 Meredith Aburto NP [address] [place] [address] PCP - General Family Medicine 08/17/23 09/11/24 No, Physician PCP - General 09/12/24 Sharlene Meléndez LPN [address] [facility] [address] [place] [address] Globe Cleaner 07/02/18 07/02/18 Sharlene Meléndez LPN [address] [facility] [address] [place] [address] Globe Cleaner 11/05/19 11/05/19 Lissette Riley [address] [facility] [address] [place] [address] ACO Care Field Examiner 01/15/20 01/15/20 documented as of this encounter
--- OUTSIDE RECORDS SUMMARY | 2025-04-30 17:02 | XMS_ITS | Encounter Summary ---
Author Organization [facility] Facility Care Team Providers Care Company Laborer Name Role Phone Dariel De Souza MD Primary Care Provider [phone] Bebo Hansen MD Primary Care Provider [phone] Juana Mesa MD Primary Care Provider [phone] Juana Mesa MD Primary Care Provider [phone] Sharlene Meléndez LPN Unavailable [phone] Sharlene Meléndez LPN Unavailable [phone] Lissette Riley Unavailable No, Physician Primary Care Provider [phone] Paulette Prieto YOKE PRESSER Primary Care Provider [phone] Meredith Aburto YOKE PRESSER Primary Care Provi arlette No, Physician Primary Care Provider [phone] Encounter Details Date Type Department Care Team (Latest Contact Info) Description 03/26/2017 Orders Only [facility] CLINCONV Provider, MD Dwayne [address] [place] [address] Social History Tobacco Use Types Packs/Day Years Used Date Smoking Tobacco: Never Assessed Alcohol Use Standard Drinks/Week Comments Yes 0 (1 standard drink = 0.6 oz pur e alcohol) Comments Unknown Sex and Gender Information Value Date Recorded Sex Assigned at Not on file Legal Sex Female 9:08 AM CONCRETE CRAFTSMAN Gender Identity Female 06/25/2019 7:13 AM CDT [...] diarrhea 04/18/2017 04/17/2017 12/30/2021 2 :39 PM CONCRETE CRAFTSMAN COVID: Suspected 07/05/2020 07/05/2020 07/19/2020 3:05 AM CDT COVID: Suspected 07/01/2021 07/01/2021 07/01/2021 2:38 PM CDT COVID: Suspected 07/01/2021 07/01/2021 07/01/2021 9:10 PM CDT COVID19 07/01/2021 07/01/2021 07/15/2021 3:05 AM CDT COVID: Recovered Comment:Added based on recent COVID infection. 07/15/2021 07/15/2021 11/12/2021 3:[address] COVID: Suspected 11/28/2021 11/28/2021 11/28/2021 7:00 PM CONCRETE CRAFTSMAN COVID19 11/28/2021 11/28/2021 12/12/2021 3:05 AM CONCRETE CRAFTSMAN COVID: Recovered Comment:Added based on recent COVID infection. 12/12/2021 12/12/2021 04/11/2022 3:05 AM C DT COVID: Suspected 07/05/2022 07/05/2022 07/05/2022 10:39 PM CDT MRSA 07/06/2022 07/06/2022 01/02/2023 3:05 AM CONCRETE CRAFTSMAN COVID19 12/02/2022 12/02/2022 12/13/2022 3:05 AM CONCRETE CRAFTSMAN COVID: Recovered Comment:Added based on recent COVID infection. 12/13/2022 12/15/2022 03/13/2023 3:05 AM C DT Exposure, COVID-19 Comment:No direct exposure. Pt in COVID recovery window. No concern for new infection. Aan Aguilera 01/15/2023 Added automatically based on COVID19 lab answers indicating exposure risk 01/14/2023 01/14/2023 01/15/2023 10:17 AM CONCRETE CRAFTSMAN COVID: Suspected 01/14/2023 01/14/2023 01/14/2023 6:42 PM CONCRETE CRAFTSMAN Human metapneumovirus, conta ct + droplet 01/14/2023 01/14/2023 01/21/2023 3:[address] COVID: Suspected 01/30/2023 01/30/2023 01/30/2023 10:06 PM CONCRETE CRAFTSMAN documented as of this encounter Care Teams Company Laborer Relationship Specialty Start Date End Date Dariel De Souza MD [address] [address] PCP - General 11/06/07 06/14/17 Bebo Hansen MD [address] [address] PCP - General 06/15/17 10/16/17 Juana Mesa MD [address] [facility] [address] [place] [address] PCP - General 10/17/17 11/25/17 Juana Mesa MD [address] [facility] [address] [place] [address] PCP - General 11/26/17 10/26/18 No, Physician PCP - General 06/20/22 06/21/22 Paulette Prieto, CARMEN [address] [place] [address] PCP - General Nurse Practitioner 06/22/22 08/16/23 Meredith Aburto NP [address] [place] [address] PCP - General Family Medicine 08/17/23 09/11/24 No, Physician PCP - General 09/12/24 Sharlene Meléndez LPN [address] [facility] [address] [place] [address] Staffing Analyst 07/02/18 07/02/18 Sharlene Meléndez LPN [address] [facility] [address] [place] [address] Staffing Analyst 11/05/19 11/05/19 Lissette Riley [address] [facility] [facility] [address] [place] [address] ACO Care [employer] Police 01/15/20 01/15/20 documented as of this encounter
--- OUTSIDE RECORDS SUMMARY | 2025-04-30 17:02 | XMS_ITS | Encounter Summary ---
Author Organization [facility] Healthcare Address [address] [place] [address] Care Team Providers Care Concrete Mixing Plant Laborer Name Role Phone Meredith Aburto COW TESTER Primary Care Provi arlette No, Physician Primary Care Provider Encounter Details Date Type Department Care Team (Late st Contact Info) Description 05/01/2024 Orders Only [facility] Health Information Management [address] [place] [address] Scanning, Provider Social History Tobacco Use Types Packs/Day Years Used Date Smoking Tobacco: Former Cigarettes 3 51.4 S tarted: 1974 Smokeless Tobacco: Never Alcohol [...] often do you attend chur ch or church services? More than 4 times per year 02/02/2023 Do you belong to any clubs o r organizations such as anglican groups, unions, fraternal or athletic groups, or [...] place to sleep or slept in a retirement (including now)? No 02/02/2023 Personal Safety Answer Date Recorded Have you ever been in or are you currently in a harmful physical or emotional relationship or is someone making you feel afraid or unsafe? Denies 04/02/2024 Comments No Sex and Gender Information Value Date Recorded Sex Assigned at Not on file Legal Sex Female 9:08 AM GAS ROLLER OPERATOR Gender Identity Female 06/25/2019 7:13 AM [...] filedocumented in this encounter Care Teams Concrete Mixing Plant Laborer Relationship Specialty Start Date End Date Meredith Aburto NP PCP - General Family Medicine 08/17/23 09/11/24 No, Physician PCP - General 09/12/24 documented as of this encounter
--- OUTSIDE RECORDS SUMMARY | 2025-04-30 17:02 | XMS_ITS | Encounter Summary ---
Author Organization [facility] Facility Care Team Providers Care Clinical Laboratory Assistant Name Role Phone Juana Mesa MD Primary Care Provider [phone] Sharlene Meléndez MEDICAL TECHNOLOGIST GENERALIST Unavailable [phone] Sharlene Meléndez MEDICAL TECHNOLOGIST GENERALIST Unavailable [phone] Lissette Riley Unavailable No, Physician Primary Care Provider [phone] Paulette Prieto MAGNETIC RESONANCE IMAGING COORDINATOR Primary Care Provider [phone] Meredith Aburto MAGNETIC RESONANCE IMAGING COORDINATOR Primary Care Provi arlette No, Physician Primary Care Provider [phone] Encounter Details Date Type Department Care Team (Latest Contact Info) Description 06/12/2018 Orders Only [facility] CLINCONV ProviderDwayne MD [address] [place] [address] Social History Tobacco Use Types Packs/Day Years Used Date Smoking Tobacco: Former Smokeless Tobacco: Never Alcohol Use Standard Drinks/Week Comments Yes 0 (1 standard drink = 0.6 oz pur e alcohol) Comments Unknown Sex and Gender Information Value Date Recorded Sex Assigned at Not on file Legal Sex Female 9:08 AM TECHNICAL EXPERT Gender Identity Female 06/25/2019 7:13 AM CDT [...] diarrhea 04/18/2017 04/17/2017 12/30/2021 2 :39 PM TECHNICAL EXPERT COVID: Suspected 07/05/2020 07/05/2020 07/19/2020 3:05 AM CDT COVID: Suspected 07/01/2021 07/01/2021 07/01/2021 2:38 PM CDT COVID: Suspected 07/01/2021 07/01/2021 07/01/2021 9:10 PM CDT COVID19 07/01/2021 07/01/2021 07/15/2021 3:05 AM CDT COVID: Recovered Comment:Added based on recent COVID infection. 07/15/2021 07/15/2021 11/12/2021 3:[address] COVID: Suspected 11/28/2021 11/28/2021 11/28/2021 7:00 PM TECHNICAL EXPERT COVID19 11/28/2021 11/28/2021 12/12/2021 3:05 AM TECHNICAL EXPERT COVID: Recovered Comment:Added based on recent COVID infection. 12/12/2021 12/12/2021 04/11/2022 3:05 AM C DT COVID: Suspected 07/05/2022 07/05/2022 07/05/2022 10:39 PM CDT MRSA 07/06/2022 07/06/2022 01/02/2023 3:05 AM TECHNICAL EXPERT COVID19 12/02/2022 12/02/2022 12/13/2022 3:05 AM TECHNICAL EXPERT COVID: Recovered Comment:Added based on recent COVID infection. 12/13/2022 12/15/2022 03/13/2023 3:05 AM C DT Exposure, COVID-19 Comment:No direct exposure. Pt in COVID recovery window. No concern for new infection. Ana Aguilera 01/15/2023 Added automatically based on COVID19 lab answers indicating exposure risk 01/14/2023 01/14/2023 01/15/2023 10:17 AM TECHNICAL EXPERT COVID: Suspected 01/14/2023 01/14/2023 01/14/2023 6:42 PM TECHNICAL EXPERT Human metapneumovirus, conta ct + droplet 01/14/2023 01/14/2023 01/21/2023 3:[address] COVID: Suspected 01/30/2023 01/30/2023 01/30/2023 10:06 PM TECHNICAL EXPERT documented as of this encounter Care Teams Clinical Laboratory Assistant Relationship Specialty Start Date End Date Juana Mesa MD [address] [place] [address] PCP - General 11/26/17 10/26/18 No, Physician PCP - General 06/20/22 06/21/22 Paulette Prieto NP [address] [place] [address] PCP - General Nurse Practitioner 06/22/22 08/16/23 Meredith Aburto NP [address] [place] [address] PCP - General Family Medicine 08/17/23 09/11/24 No, Physician PCP - General 09/12/24 Sharlene Meléndez LPN [address] [place] [address] Assistant Field Hockey Coach 07/02/18 07/02/18 Sharlene Meléndez LPN [address] [place] [address] Assistant Field Hockey Coach 11/05/19 11/05/19 Lissette Riley [address] [place] [address] ACO Care Patient Registration Rep 01/15/20 01/15/20 documented as of this encounter
--- OUTSIDE RECORDS SUMMARY | 2025-04-30 17:02 | XMS_ITS | Encounter Summary ---
Author Organization [facility] Address [address] [facility] [address] [place] [address] Phone Care Team Providers Care Deputy Prosecuting Attorney Name Role Phone Dariel De Souza MD Primary Care Provider [phone] Bebo Hansen MD Primary Care Provider [phone] Juana Mesa MD Primary Care Provider [phone] Juana Mesa MD Primary Care Provider [phone] Sharlene Meléndez LPN Unavailable [phone] Sharlene Meléndez LPN Unavailable [phone] Lissette Riley Unavailable No, Physician Primary Care Provider Paulette Prieto SPECIAL MACHINE STITCHER Primary Care Provider [phone] Meredith Aburto SPECIAL MACHINE STITCHER Primary Care Provi arlette No, Physician Primary Care Provider [phone] Encounter Details Date Type Department Care Team (Late st Contact Info) Description 06/01/2014 Orders Only [facility] CLINCONV Provider, MD Dwayne [address] [place] [address] Social History Tobacco Use Types Packs/Day Years Used Date Smoking Tobacco: Never Assessed Alcohol Use Standard Drinks/Week Comments Yes 0 (1 standard drink = 0.6 oz pur e alcohol) Comments Unknown Sex and Gender Information Value Date Recorded Sex Assigned at Not on file Legal Sex Female 9:08 AM SSAS DEVELOPER Gender Identity Female 06/25/2019 7:13 AM CDT [...] diarrhea 04/18/2017 04/17/2017 12/30/2021 2 :39 PM SSAS DEVELOPER COVID: Suspected 07/05/2020 07/05/2020 07/19/2020 3:05 AM CDT COVID: Suspected 07/01/2021 07/01/2021 07/01/2021 2:38 PM CDT COVID: Suspected 07/01/2021 07/01/2021 07/01/2021 9:10 PM CDT COVID19 07/01/2021 07/01/2021 07/15/2021 3:05 AM CDT COVID: Recovered Comment:Added based on recent COVID infection. 07/15/2021 07/15/2021 11/12/2021 3:[address] COVID: Suspected 11/28/2021 11/28/2021 11/28/2021 7:00 PM SSAS DEVELOPER COVID19 11/28/2021 11/28/2021 12/12/2021 3:05 AM SSAS DEVELOPER COVID: Recovered Comment:Added based on recent COVID infection. 12/12/2021 12/12/2021 04/11/2022 3:05 AM C DT COVID: Suspected 07/05/2022 07/05/2022 07/05/2022 10:39 PM CDT MRSA 07/06/2022 07/06/2022 01/02/2023 3:05 AM SSAS DEVELOPER COVID19 12/02/2022 12/02/2022 12/13/2022 3:05 AM SSAS DEVELOPER COVID: Recovered Comment:Added based on recent COVID infection. 12/13/2022 12/15/2022 03/13/2023 3:05 AM C DT Exposure, COVID-19 Comment:No direct exposure. Pt in COVID recovery window. No concern for new infection. Ana Aguilera 01/15/2023 Added automatically based on COVID19 lab answers indicating exposure risk 01/14/2023 01/14/2023 01/15/2023 10:17 AM SSAS DEVELOPER COVID: Suspected 01/14/2023 01/14/2023 01/14/2023 6:42 PM SSAS DEVELOPER Human metapneumovirus, conta ct + droplet 01/14/2023 01/14/2023 01/21/2023 3:[address] COVID: Suspected 01/30/2023 01/30/2023 01/30/2023 10:06 PM SSAS DEVELOPER documented as of this encounter Care Teams Deputy Prosecuting Attorney Relationship Specialty Start Date End Date Dariel De Souza MD [address] [address] PCP - General 11/06/07 06/14/17 Bebo Hansen MD [address] [place] [address] PCP - General 06/15/17 10/16/17 Juana Mesa MD [address] [place] [address] PCP - General 10/17/17 11/25/17 [place] [address] [place] [address] [place] [address] PCP - General 11/26/17 10/26/18 No, Physician PCP - General 06/20/22 06/21/22 Paulette Prieto, CARMEN [address] [place] [address] PCP - General Nurse Practitioner 06/22/22 08/16/23 Meredith Aburto NP [address] [place] [address] PCP - General Family Medicine 08/17/23 09/11/24 No, Physician PCP - General 09/12/24 Sharlene Meléndez LPN [address] [place] [address] Tariff Clerk 07/02/18 07/02/18 Sharlene Meléndez LPN [address] [place] [address] Tariff Clerk 11/05/19 11/05/19 Lissette Riley [address] [place] [address] ACO Care Transportation Attendant 01/15/20 01/15/20 documented as of this encounter
--- OUTSIDE RECORDS SUMMARY | 2025-04-30 17:02 | XMS_ITS | Encounter Summary ---
Author Organization [facility] Address [address] [place] [address] Care Team Providers Care Diamond Sander Name Role Phone Juana Mesa MD Primary Care Provider Juana Mesa MD Primary Care Provider Juana Mesa MD Unavailable [phone] Juana Mesa MD Unavailable [phone] Juana Mesa MD Unavailable [phone] Juana Mesa MD Unavailable Juana Mesa MD Unavailable [phone] Juana Mesa MD Unavailable [phone] Ra Jara MD Unavailable Dada Lou MD Unavailable Unavailable Paco Holden MD Unavailable [phone] Paramjit Escobar MD Unavailable [phone] Encounter Details Date Type Department Care Team (Late st Contact Info) Description 08/19/2020 Lab Requisition [facility] [address] [facility], [place] [address] Harper Metzger MD [address] [facility] [address] [place] [address] Social History Tobacco Use Types Packs/Day Years [...] Entry Date Author No 07/07/2016 9:30 PM CDT Baldo, Foz ia, RN documented in this encounter Plan of Treatment Not on file documented as of this encounter Goals Goal Patient Goal Type Associated Problems Recent Progress Patient-Stated? Author Blood Pressure < 140/90 Blood Pressure 116/80(2021 2:59 PM CDT) No Lang, Marnice A Reduce cholesterol intake. Diet No Lnag, Marnice A Exercise 3X per week (30 min per time) Exercise No Lang, Marnice A HEMOGLOBIN A1C < 7.0 Result Component 6.4( 7 6:22 AM JUNIOR ARCHITECT) No Lang, Marnice A documented as of this encounter Procedures Procedure Name Priority Date/Time Associated Diagnosis Comments DERMATOPATHOLOGY Routine 08/18/2020 12:0 0 AM CDT documented in this encounter Results * DERMATOPATHOLOGY (08/18/2020 12:00 AM CDT) Case Report Dermatopathology Report Case: [id number] Authorizing Provider: Harper Metzger MD Collected: 08/18/2020 12:00 AM Ordering Location: [facility] DermPath Lab Received: 08/19/2020 09:56 AM Pathologist: Shavon Moreno MD Specimen: Skin, mid chest 0 5:29 PM CDT DERMATOPATHOLOGY LABORATORY Final Diagnosis Specimen A. 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 Previous Bx: [id number]. 0 5:29 PM CDT DERMATOPATHOLOGY LABORATORY Gross Description Specimen A: Received is one formalin filled container labeled with the patient's name and designated mid chest.The specimen consists of an ellipse measuring 30m33x4gr and is oriented with the notch at [...] characteristic determined by the Dermatopathology Laboratory at [facility], directed by Dr. Ines Maldonado. These tests need not be, and therefore are not, approved by the [place] Food and Drug Administration. The tests are used for clinical purposes. Billing Codes Specimen Charges Stain Charges 09666 1 0 5:29 PM CDT DERMATOPATHOLOGY LABORATORY Embedded Images 0 5:29 PM CDT DERMATOPATHOLOGY LABORATORY Pathology/Cytolog y TISSUE SPECIMEN FROM SKIN / Unknown 08/18/2020 08/19/2020 9:56 AM CDT Harper Metzger MD LAB - PATHOLOGY/CYTOLOGY ORD ERABLES Final Result DERMATOPATHOLOGY LABORATORY [facility] - Department of Dermatology [facility] Specialized Medicine [address] [place] [address], [address] [place] [address], [facility] [phone] documented in this encounter Visit Diagnoses Not on filedocumented in this encounter Care Teams Diamond Sander Relationship Specialty Start Date End Date Juana Mesa MD [address] [place] [address] PCP - General 07/01/20 04/10/21 Juana Mesa MD [address] [place] [address] [facility] - General 04/11/21 Juana Mesa MD [address] [place] [address] 04/11/21 Juana Mesa MD [address] [place] [address] 07/01/20 Juana Mesa MD [address] [place] [address] 12/22/19 Juana Mesa MD [address] [place] [address] 07/21/19 Juana Mesa MD [address] [place] [address] 07/12/18 Juana Mesa MD [address] [place] [address] Family Medicine 05/03/18 Ra Jara MD [address] [place] [address] Endocrinology 04/21/14 Dada Lou MD [address] [place] [address] Internal Medicine 11/09/15 Paco Holden MD [address] [place] [address] Neurology 05/11/16 Paramjit Escobar MD [address] [place] [address] Internal Medicine 11/23/16 documented as of this encounter
--- OUTSIDE RECORDS SUMMARY | 2025-04-30 17:02 | XMS_ITS | Encounter Summary ---
Author Organization [facility] Address [address] [facility] [place] [address] Care Team Providers Care Python Engineer Name Role Phone Juana Mesa MD Primary Care Provider Juana Mesa MD Primary Care Provider Juana Mesa MD Primary Care Provider Juana Mesa MD Primary Care Provider Juana Mesa MD Unavailable [phone] Juana Mesa MD Unavailable [phone] Juana Mesa MD Unavailable [phone] Juana Mesa MD Unavailable [phone] Juana Mesa MD Unavailable Juana Mesa MD Unavailable Ra Jara MD Unavailable Dada Lou MD Unavailable Unavailable Paco Holden MD Unavailable [phone] Paramjit Escobar MD Unavailable [phone] Encounter Details Date Type Department Care Team (Late st Contact Info) Description 07/22/2019 Lab Requisition [facility] [address] [facility], [place] [address] Debbie Hall MD [address] [facility] [address] [place] [address] Social History Tobacco Use Types Packs/Day Years [...] Assessment Author No 07/07/2016 9:30 PM CDT Baldo, Foz ia, RN documented as of this encounter Mental Status * Does person have difficulty concentrating/remembering/making decisions? Answer Entry Date Author No 07/07/2016 9:30 PM CDT Gaby Blnad RN documented in this encounter Plan of [...] 7.0 Result Component 6.4( 7 6:22 AM REGISTERED [facility]) No Lang, Marnice A documented as of this encounter Procedures Procedure Name Priority Date/Time Associated Diagnosis Comments DERMATOPATHOLOGY Routine 07/21/2019 12:0 0 AM CDT documented in this encounter Results * DERMATOPATHOLOGY (07/21/2019 12:00 AM CDT) Case Report Dermatopathology Report Case: [id number] Authorizing Provider: Debbie Hall MD Collected: 07/21/2019 12:00 AM Ordering Location: [facility] DermPath Lab Received: 07/22/2019 11:25 AM Pathologist: Anamika Whatley MD Specimen: Skin, mid chin 12:25 PM CDT DERMATOPATHOLOGY LABORATORY Final Diagnosis Specimen A. SKIN, mid chin: VERRUCA PLANA (B07.8) PRURIGO NODULARIS (L28.1) 9 12:25 PM CDT DERMATOPATHOLOGY LABORATORY at 1225 CDT Clinical History PN vs SK, irritated. 9 12:25 PM CDT DERMATOPATHOLOGY LABORATORY Gross Description Specimen A: Received is one formalin filled container labeled with the patient's name and designated mid chin. The specimen consists of a shave measuring 3p8x0es. Jar 0. 9 12:25 PM CDT DERMATOPATHOLOGY LABORATORY Microscopic Description Specimen A. SKIN, mid chin: There is gently papillated epidermal hyperplasia, hypergranulosis, and laminated hyperorthokeratosis . Adjacent to these changes there is a dome-shaped portion of skin with psoriasiform epidermal hyperplasia, compact hyperkeratosis, and fibrosis of the papillary dermis associated with a superficial perivascular lymphohistiocytic infiltrate. 9 12:25 PM CDT DERMATOPATHOLOGY LABORATORY Disclaimer An external and internal positive and negative controls are appropriate for the histochemical, immunohistochemical and immunofluorescence stain(s) in this case (if any), except where stated explicitly. The performance characteristics of the stain(s) cited in this report were developed and its performance characteristic determined by the Dermatopathology Laboratory at [facility], directed by Dr. Ines Maldonado. These tests need not be, and therefore are not, approved by the [place] Food and Drug Administration. The tests are used for clinical purposes. Billing Codes Specimen Charges Stain Charges 55320 1 12:25 PM CDT DERMATOPATHOLOGY LABORATORY Embedded Images 12:25 PM CDT DERMATOPATHOLOGY LABORATORY Pathology/Cytolog y TISSUE SPECIMEN FROM SKIN / Unknown 07/21/2019 07/22/2019 11:25 AM CDT Debbie Hall MD LAB - PATHOLOGY/CYTOLOGY OR DERABLES Final Result DERMATOPATHOLOGY LABORATORY [facility] - Department of Dermatology [address] [facility], 5th Floor Lab [address] [phone] documented in this encounter Visit Diagnoses Not on filedocumented in this encounter Care Teams Python Engineer Relationship Specialty Start Date End Date Juana Mesa MD [address] [facility] [address] [place] [address] PCP - General 07/21/19 12/21/19 Juana Mesa MD [address] [facility] [address] [place] [address] PCP - General 12/22/19 06/30/20 Juana Mesa MD [address] [facility] [place] [address] PCP - General 07/01/20 04/10/21 Juana Mesa MD [address] [facility] [place] [address] PCP - General 04/11/21 Juana Mesa MD [address] [facility] [place] [address] 04/11/21 Juana Mesa MD [address] [facility] [place] [address] 07/01/20 Juana Mesa MD [facility] [place] [address] 12/22/19 Juana Mesa MD [facility] [place] [address] 07/21/19 Juana Mesa MD [facility] [place] [address] 07/12/18 Juana Mesa MD [facility] [place] [address] Family Medicine 05/03/18 Ra Jara MD [address] [place] [address] Endocrinology 04/21/14 Dada Lou MD [address] [place] [address] Internal Medicine 11/09/15 Paco Holden MD [address] [place] [phone] Neurology 05/11/16 Paramjit Escobar MD [address] [place] [address] Internal Medicine 11/23/16 documented as of this encounter
--- OUTSIDE RECORDS SUMMARY | 2025-04-30 17:02 | XMS_ITS | Encounter Summary ---
Author Organization [facility] Address [address] [facility] [address] [place] [address] Phone Care Team Providers Care Prekindergarten Teacher Name Role Phone Dariel De Souza MD Primary Care Provider [phone] Bebo Hansen MD Primary Care Provider [phone] Juana Mesa MD Primary Care Provider [phone] Juana Mesa MD Primary Care Provider [phone] Sharlene Meléndez LPN Unavailable +[phone] Sharlene Meléndez LPN Unavailable +[phone] Lisestte Riley Unavailable No, Physician Primary Care Provider [phone] Paulette Prieto IT TECHNICIAN Primary Care Provider [phone] Meredith Aburto IT TECHNICIAN Primary Care Provi arlette No, Physician Primary Care Provider Encounter Details Date Type Department Care Team (Late st Contact Info) Description 02/04/2015 Orders Only [facility] IM [facility] CLINCONV Provider, MD Dwayne [address] [place] [address] Social History Tobacco Use Types Packs/Day Years Used Date Smoking Tobacco: Never Assessed Alcohol Use Standard Drinks/Week Comments Yes 0 (1 standard drink = 0.6 oz pur e alcohol) Comments Unknown Sex and Gender Information Value Date Recorded Sex Assigned at Not on file Legal Sex Female 9:08 AM STEEL WHEEL ENGRAVER Gender Identity Female 06/25/2019 7:13 AM CDT [...] diarrhea 04/18/2017 04/17/2017 12/30/2021 2 :39 PM STEEL WHEEL ENGRAVER COVID: Suspected 07/05/2020 07/05/2020 07/19/2020 3:05 AM CDT COVID: Suspected 07/01/2021 07/01/2021 07/01/2021 2:38 PM CDT COVID: Suspected 07/01/2021 07/01/2021 07/01/2021 9:10 PM CDT COVID19 07/01/2021 07/01/2021 07/15/2021 3:05 AM CDT COVID: Recovered Comment:Added based on recent COVID infection. 07/15/2021 07/15/2021 11/12/2021 3:[address] COVID: Suspected 11/28/2021 11/28/2021 11/28/2021 7:00 PM STEEL WHEEL ENGRAVER COVID19 11/28/2021 11/28/2021 12/12/2021 3:05 AM STEEL WHEEL ENGRAVER COVID: Recovered Comment:Added based on recent COVID infection. 12/12/2021 12/12/2021 04/11/2022 3:05 AM C DT COVID: Suspected 07/05/2022 07/05/2022 07/05/2022 10:39 PM CDT MRSA 07/06/2022 07/06/2022 01/02/2023 3:05 AM STEEL WHEEL ENGRAVER COVID19 12/02/2022 12/02/2022 12/13/2022 3:05 AM STEEL WHEEL ENGRAVER COVID: Recovered Comment:Added based on recent COVID infection. 12/13/2022 12/15/2022 03/13/2023 3:05 AM C DT Exposure, COVID-19 Comment:No direct exposure. Pt in COVID recovery window. No concern for new infection. Ana Aguilera 01/15/2023 Added automatically based on COVID19 lab answers indicating exposure risk 01/14/2023 01/14/2023 01/15/2023 10:17 AM STEEL WHEEL ENGRAVER COVID: Suspected 01/14/2023 01/14/2023 01/14/2023 6:42 PM STEEL WHEEL ENGRAVER Human metapneumovirus, conta ct + droplet 01/14/2023 01/14/2023 01/21/2023 3:[address] COVID: Suspected 01/30/2023 01/30/2023 01/30/2023 10:06 PM STEEL WHEEL ENGRAVER documented as of this encounter Care Teams Prekindergarten Teacher Relationship Specialty Start Date End Date Dariel De Souza MD [address] [address] PCP - General 11/06/07 06/14/17 Bebo Hansen MD [address] [place] [address] PCP - General 06/15/17 10/16/17 Juana Mesa MD [address] [place] [address] PCP - General 10/17/17 11/25/17 [place] [address] [place] [address] [place] [address] PCP - General 11/26/17 10/26/18 No, Physician PCP - General 06/20/22 06/21/22 Paulette Prieto, CARMEN [address] [place] [address] PCP - General Nurse Practitioner 06/22/22 08/16/23 Meredith Aburto NP [address] [place] [address] PCP - General Family Medicine 08/17/23 09/11/24 No, Physician PCP - General 09/12/24 Sharlene Meléndez LPN [address] [facility] [address] [place] [address] Clay Worker 07/02/18 07/02/18 Sharlene Meléndez LPN [address] [facility] [address] [facility] [address] [place] [address] Clay Worker 11/05/19 11/05/19 Lissette Riley [address] [place] [address] ACO Care Case Manager Specialist 01/15/20 01/15/20 documented as of this encounter
--- OUTSIDE RECORDS SUMMARY | 2025-04-30 17:02 | XMS_ITS | Patient Health Record ---
Author Organization [facility] Address [address] [place], [place] [address] Care Team Providers Care On Call Pharmacy Technician Name Role Phone LINDA PACHECO Unavailable [phone] Stone, Crystal Unavailable Unavailable Allergies Allergen (clinical drug ingredient) Drug/Non Drug Allergy documented on EMR Reaction Allergy Type Onset Date Status codeine Codeine Unknown Drug Allergy 11/06/2012 active Reason For Referral No Information Medications Medication SIG (Take, Route, Frequency, Duration) Notes Start Date End Date Status Lisinopril 2.5 MG Oral Tablet ORAL lisinopril 2.5 MG Oral TabletOriginal Medicationlisinopril 2.5 MG Oral Tablet *Reorder from [employer] for eRx and Interaction Alerts* 2 Active Warfarin Sodium 10 MG Oral Tablet ORAL warfarin sodium 10 MG Oral TabletOriginal Medicationwarfarin sodium 10 MG Oral Tablet *Reorder from [employer] for eRx and Interaction Alerts* 2 Active ciprofloxacin 500 MG Oral Tablet [Cipro] ORAL ciprofloxacin 500 MG Oral Tablet [Cipro]Original Medicationciprofloxacin 500 MG Oral Tablet [Cipro] *Reorder from [employer] for eRx and Interaction Alerts* 7 Active Carvedilol 12.5 MG Oral Tablet ORAL carvedilol 12.5 MG Oral TabletOriginal Medicationcarvedilol 12.5 MG Oral Tablet *Reorder from [employer] for eRx and Interaction Alerts* 2 Active clobetasol propionate 0.0005 MG/MG Topical Ointment CUTANEOUS clobetasol propionate 0.0005 MG/MG Topical OintmentOriginal Medicationclobetasol propionate 0.0005 MG/MG Topical Ointment *Reorder from [facility] for eRx and Interaction Alerts* 3 Active digoxin 0.125 MG Oral Tablet ORAL digoxin 0.125 MG Oral TabletOriginal Medicationdigoxin 0.125 MG Oral Tablet *Reorder from [facility] for eRx and Interaction Alerts* 2 Active colchicine 0.6 MG Oral Tablet [Colcrys] ORAL colchicine 0.6 MG Oral Tablet [Colcrys]Original Medicationcolchicine 0.6 MG Oral Tablet [Colcrys] *Reorder from [facility] for eRx and Interaction Alerts* 4 Active isopropyl alcohol 0.7 ML/ML Medicated Pad isopropyl alcohol 0.7 ML/ML Medicated PadOriginal Medicationisopropyl alcohol 0.7 ML/ML Medicated Pad *Reorder from [facility] for eRx and Interaction Alerts* 2 05/29/20 29 Active insulin aspart, human 100 UNT/ML Injectable Solution [NovoLog] insulin aspart, human 100 UNT/ML Injectable Solution [NovoLog]Original Medicationinsulin aspart, human 100 UNT/ML Injectable Solution [NovoLog] *Reorder from [facility] for eRx and Interaction Alerts* 2 Active Furosemide 40 MG Oral Tablet ORAL furosemide 40 MG Oral TabletOriginal Medicationfurosemide 40 MG Oral Tablet *Reorder from [facility] for eRx and Interaction Alerts* 2 Active metformin hydrochloride 1000 MG Oral Tablet ORAL metformin hydrochloride 1000 MG Oral TabletOriginal Medicationmetformin hydrochloride 1000 MG Oral Tablet *Reorder from [facility] for eRx and Interaction Alerts* 2 Active Immunizations Vaccine Route Administration Date Status Comme nts Pneumococcal conjugate PCV 13 Unknown 02/10/2025 Admini stered Influenza, high dose seasonal Unknown 02/10/2025 Admini stered Vital Signs Height-cm 167.64 cm 06/09/2024 Weight-kg 93.44 kg 09/15/2024 Height 66.00 in 06/09/2024 Weight 206 lbs 09/15/2024 BMI 33.25 kg/m2 06/09/2024 Encounters Encounter Location Date Provider Diagnosis [facility] [address] [address] [id number] 06/09/2024 LINDA SNOOK Tinea unguium B35.1 ; Pain in right toe(s) M79.674 ; Pain in left toe(s) M79.675 ; Atherosclerosis of [place] arteries of extremities with intermittent claudication, bilateral legs I70.213 and Type 2 diabetes mellitus with other circulatory complications E11.59 [facility] [address] [id number] 09/15/2024 LINDA OOK Tinea unguium B35.1 ; Pain in right foot M79.671 ; Pain in left foot M79.672 ; Atherosclerosis of [place] arteries of extremities with intermittent claudication, bilateral legs I70.213 and Acquired keratosis [keratoderma] palmaris et plantaris L85.1 [facility] [address] [id number] 06/01/2024 Assessments Encounter Date Diagnosis (ICD Code) [...] Pain in left toe(s) (ICD-10 - M79.675) 09/15/2024 Atherosclerosis of [place] arteries of extremities with intermittent claudication, bilateral legs (ICD-10 - I70.213) 06/09/2024 Atherosclerosis of [place] arteries of extremities with intermittent claudication, bilateral legs (ICD-10 - I70.213) 09/15/2024 Acquired keratosis [keratoderma] palmaris et plantaris (ICD-10 - L85.1) A total of 1 corns or calluses, as described in the note above, were cut and pared utilizing a #15 blade 06/09/2024 Type 2 diabetes mellitus with other circulatory complications (ICD-10 - E11.59) Diabetic Foot Care: The patient was educated on diabetes and the lower extremity. The patient was instructed to check his feet daily to report any problems or signs of infection immediately. The patient was provided written information on Diabetic Foot Care as well as the Amputation Prevention Guide. Plan Of Treatment Next Appt Details Provider Name:LINDA PACHECO, 01:30:00 PM, [address], [facility], [place], [place], [id number], Insurance Providers Payer Name Payer Address Payer Phone Subscriber Number Group Number Insured Name Patient Relationship to Insured Coverage Start Date Coverage End Date Medicare Part B [place] [address] [place] [address] [id number] MAI HENDERSON CH Self - patient is the insured [facility] [address] [address] [place], [place] [id number] MAI HENDERSON CH Self - patient is the insured
--- OUTSIDE RECORDS SUMMARY | 2025-04-30 17:02 | XMS_ITS | Encounter Summary ---
Author Organization [facility] Address [address] [place] [address] Phone Care Team Providers Care Regrind Mill Operator Name Role Phone No, Physician Primary Care Provider Encounter Details Date Type Department Care Team (Late st Contact Info) Description 10/06/2024 Telephone [facility] Endocrinology Metabolism and Lipid [address] [facility] Advanced Medicine 13th [place] [address] [place] [address] Deven Weinberg CMA Social History [...] often do you attend chur ch or mormon services? More than 4 times per year 02/02/2023 Do you belong to any clubs o r organizations such as gnosticism groups, unions, fraternal or athletic groups, or [...] place to sleep or slept in a snf (including now)? No 02/02/2023 Personal Safety Answer Date Recorded Have you ever been in or are you currently in a harmful physical or emotional relationship or is someone making you feel afraid or unsafe? Denies 04/02/2024 Comments No Sex and Gender Information Value Date Recorded Sex Assigned at Not on file Legal Sex Female 9:08 AM MAT WEAVER Gender Identity Female 06/25/2019 7:13 AM CDT Sexual Orientation Not on file documented as of this encounter Plan of Treatment Not on file documented as of this encounter Visit Diagnoses Not on filedocumented in this encounter Care Teams Regrind Mill Operator Relationship Specialty Start Date End Date No, Physician PCP - General 09/12/24 documented as of this encounter
--- OUTSIDE RECORDS SUMMARY | 2025-04-30 17:02 | XMS_ITS | Encounter Summary ---
Author Organization [facility] Address [address] [facility] [address] [place] [address] Phone Care Team Providers Care Nuclear Weapons Mechanical Specialist Name Role Phone Dariel De Souza MD Primary Care Provider [phone] Bebo Hansen MD Primary Care Provider [phone] Juana Mesa MD Primary Care Provider [phone] Juana Mesa MD Primary Care Provider [phone] Sharlene Meléndez LPN Unavailable [phone] Sharlene Meléndez LPN Unavailable [phone] Lissette Riley Unavailable No, Physician Primary Care Provider [phone] Paulette Prieto PIGMENT FURNACE TENDER Primary Care Provider [phone] Meredith Aburto PIGMENT FURNACE TENDER Primary Care Provi arlette No, Physician Primary Care Provider [phone] Encounter Details Date Type Department Care Team (Late st Contact Info) Description 11/02/2015 Orders Only [facility] Provider, MD Dwayne [address] [place] [id number] Social History Tobacco Use Types Packs/Day Years Used Date Smoking Tobacco: Never Assessed Alcohol Use Standard Drinks/Week Comments Yes 0 (1 standard drink = 0.6 oz pur e alcohol) Comments Unknown Sex and Gender Information Value Date Recorded Sex Assigned at Not on file Legal Sex Female 9:08 AM SERVOMECHANISM DESIGNER Gender Identity Female 06/25/2019 7:13 AM CDT [...] diarrhea 04/18/2017 04/17/2017 12/30/2021 2 :39 PM SERVOMECHANISM DESIGNER COVID: Suspected 07/05/2020 07/05/2020 07/19/2020 3:05 AM CDT COVID: Suspected 07/01/2021 07/01/2021 07/01/2021 2:38 PM CDT COVID: Suspected 07/01/2021 07/01/2021 07/01/2021 9:10 PM CDT COVID19 07/01/2021 07/01/2021 07/15/2021 3:05 AM CDT COVID: Recovered Comment:Added based on recent COVID infection. 07/15/2021 07/15/2021 11/12/2021 3:[address] COVID: Suspected 11/28/2021 11/28/2021 11/28/2021 7:00 PM SERVOMECHANISM DESIGNER COVID19 11/28/2021 11/28/2021 12/12/2021 3:05 AM SERVOMECHANISM DESIGNER COVID: Recovered Comment:Added based on recent COVID infection. 12/12/2021 12/12/2021 04/11/2022 3:05 AM C DT COVID: Suspected 07/05/2022 07/05/2022 07/05/2022 10:39 PM CDT MRSA 07/06/2022 07/06/2022 01/02/2023 3:05 AM SERVOMECHANISM DESIGNER COVID19 12/02/2022 12/02/2022 12/13/2022 3:05 AM SERVOMECHANISM DESIGNER COVID: Recovered Comment:Added based on recent COVID infection. 12/13/2022 12/15/2022 03/13/2023 3:05 AM C DT Exposure, COVID-19 Comment:No direct exposure. Pt in COVID recovery window. No concern for new infection. Ana Aguilera 01/15/2023 Added automatically based on COVID19 lab answers indicating exposure risk 01/14/2023 01/14/2023 01/15/2023 10:17 AM SERVOMECHANISM DESIGNER COVID: Suspected 01/14/2023 01/14/2023 01/14/2023 6:42 PM SERVOMECHANISM DESIGNER Human metapneumovirus, conta ct + droplet 01/14/2023 01/14/2023 01/21/2023 3:[address] COVID: Suspected 01/30/2023 01/30/2023 01/30/2023 10:06 PM SERVOMECHANISM DESIGNER documented as of this encounter Care Teams Nuclear Weapons Mechanical Specialist Relationship Specialty Start Date End Date Dariel De Souza MD [address] [facility] [address] [place] [address] PCP - General 11/06/07 06/14/17 Bebo Hansen MD [address] [facility] [address] [place] [address] PCP - General 06/15/17 10/16/17 Juana Mesa MD [address] [facility] [address] [place] [address] PCP - General 10/17/17 11/25/17 Juana Mesa MD [address] [facility] [address] [place] [address] PCP - General 11/26/17 10/26/18 No, Physician PCP - General 06/20/22 06/21/22 Paulette Prieto NP [address] [place] [address] PCP - General Nurse Practitioner 06/22/22 08/16/23 Meredith Aburto NP [address] [place] [address] PCP - General Family Medicine 08/17/23 09/11/24 No, Physician PCP - General 09/12/24 Sharlene Meléndez LPN [address] [facility] [address] [place] [address] Customer Energy Specialist 07/02/18 07/02/18 Sharlene Meléndez LPN [address] [facility] [address] [place] [address] Customer Energy Specialist 11/05/19 11/05/19 Lissette Riley [address] [facility] [address] [place] [address] ACO Care Grain Operator 01/15/20 01/15/20 documented as of this encounter
--- OUTSIDE RECORDS SUMMARY | 2025-04-30 17:02 | XMS_ITS | Referral Summary ---
Author Organization [facility] Address [address] [place] [address] Care Team Providers Care Grounds Maintenance Manager Name Role Phone No, Physician Primary Care Provider [phone] Encounters Date Type Department Care Team Description 03/24/2025 Telephone [facility] Endocrinology Metabolism and Lipid [address] [facility] Advanced Medicine 13th [place] [address] [place] [address] Alisha Watson 01/30/2025 Orders Only [facility] Medical Group Cardiology [address] [place] [address] Chata Miller NP 01/28/2025 3:30 PM ON AIR PERSONALITY Ancillary Procedure [facility] Medical [facility] Cardiology [address] [place] [address] Pacemaker (Primary Dx); Atrial fibrillation, unspecified type (HCC); Sick sinus syndrome (HCC) from Last 3 Months Allergies Active Allergy [...] nephropathy, with long-term current use of insulin ([facility]) Use to test three times a day 1 kit 06/07/20 22 Active blood glucose diagnostic (glucose blood) stripIndications: Type 2 diabetes mellitus with diabetic nephropathy, with long-term current use of insulin ([facility]) Check blood sugar three ttimes a day or as directed 300 each 3 06/07/20 22 Active lancets miscIndications:T ype 2 diabetes mellitus with diabetic nephropathy, with long-term current use of insulin ([facility]) Use to test 3 times per day [...] metapneumovirus Assessment & Plan (01/17/2023 4:04 PM ON AIR PERSONALITY): -chest x-ray was reviewed, seems to be [...] 01/15/2023 Assessment & Plan (01/15/2023 1:29 PM ON AIR PERSONALITY): -noted under the right breast -ordered topical miconazole Altered bowel function 12/19/2022 Allergic conjunctivitis 08/26/2022 Hemorrhoids 08/26/2022 Depression, major, recurrent 05/25/2022 Assessment & Plan (01/15/2023 1:30 PM ON AIR PERSONALITY): -resumed Lexapro Assessment & Plan (05/25/2022 5:06 [...] 04/17/2022 Assessment & Plan (01/15/2023 1:29 PM ON AIR PERSONALITY): -resumed donepezil Assessment & Plan (05/25/2022 5:05 AM CDT): - Continue home Donepezil 5mg qhs Assessment & Plan (05/03/2022 5:17 AM CDT): New Order aricept COVID-19 07/02/2021 Mixed diabetic hyperlipidemi a associated with type 2 diabetes mellitus 04/26/2021 Assessment & Plan (12/21/2021 5:34 AM ON AIR PERSONALITY): Stable Cont lipitor Goal: TC<200, LDL<100, TG<150 Pulmonary hypertension 04/26/2021 Assessment & Plan (04/10/2024 9:37 AM CDT): Pulmonary hypertension with PASP 62 mmHg. Possible cause is due to TR. She is dry, lasix was hold. Chronic anticoagulation 04/26/2021 Nonrheumatic tricuspid valve regurgitation 04/26 Osteoporosis 11/13/2019 Assessment & Plan (01/15/2023 1:29 PM ON AIR PERSONALITY): -reports that she has not been taking [...] needed. Assessment & Plan (01/15/2023 1:28 PM ON AIR PERSONALITY): -ordered hemoglobin A1c, hold Farxiga and semaglutide in the hospital -we will manage with long-acting, pre meal and sliding scale insulin in the hospital -continue to monitor blood sugars, goal inpatient blood sugar is 140-180 Assessment & Plan (05/03/2022 5:16 AM CDT): Chronic Cont glucophage, basaglar, jardiance, ozempic Goal: Hgba1c<6.5 Assessment & Plan (12/21/2021 5:40 AM ON AIR PERSONALITY): Chronic Cont glucophage, basaglar, jardiance, ozempic Goal: Hgba1c<6.5 Assessment & Plan (02/22/2021 2:56 PM CDT): Stable Cont metformin COPD exacerbation 10/18/2019 Assessment & Plan (01/17/2023 4:08 PM ON AIR PERSONALITY): -with severe exacerbation -likely from viral infection -diffuse wheezing noted bilaterally on arrival, improving. -started on steroids, inhaler therapy, s/p scheduled DuoNebs. Transition to PO steroid taper Assessment & Plan (10/18/2019 12:03 PM ON AIR PERSONALITY): Give germán and wes here in clinic Order CXR Order agnieszkaaura roykj pack Chronic kidney disease (CKD), stage III (moderat e) 11/08/2015 Overview (05/06/2019): Overview: Based on GFR's Assessment & Plan (01/15/2023 1:30 PM ON AIR PERSONALITY): -renal function is at baseline, avoid nephrotoxic [...] Warfarin Assessment & Plan (01/17/2023 4:06 PM ON AIR PERSONALITY): -resumed Coreg and Coumadin. Patient is status post pacemaker insertion. INR 3.3 01/14. - INR supratherapeutic at 8.4 > 7.8. Verified with facility that they can draw INR 2/23 and 2/27. Dr. Phipps (patient spiral machine operator) monitors outpatient for adjustment. Assessment & Plan (05/25/2022 4:55 AM CDT): - S/p mechanical mitral valve - Pacemaker (Medtronic Adapta) placed on 10/25/2015. Permanent afib 100% V paced. Pacemaker dependent VVI to 30 bpm CONTRACTING EXECUTIVE. - INR goal 2.5-3.[address] Loc Mechanical mitral valve - Was getting bridge with lovenox 80 mg q12 for low INR PRODUCT LISTER with Warfarin - On warfarin and lovenox [...] stabilizes. Assessment & Plan (01/16/2023 11:14 AM ON AIR PERSONALITY): -resumed Coreg and losartan. Patient persistent hypertensive. [...] Sinus Syndrome Pacemaker 02/09/2011 Overview (01/21/2025): Medtronic Neva Single Pacemaker. Dx; SSS, Afib. DOI 01/21/2025-Sarika. Chronic lead 10/25/2015. [facility] remote monitoring-Mobile marino. S/P mitral valve replacement 04/06/2009 Overview (05/06/2019): Overview: St. Loc's valve. Dr. De La Rosa office follows protime. He is her spiral machine operator. On warfarin. 11/05/2014 Assessment & [...] function Assessment & Plan (01/17/2023 4:09 PM ON AIR PERSONALITY): - goal INR of 2.5-3.5, on Coumadin - INR supratherapeutic at 8.4 > 7.8. Verified with facility that they can draw INR 01/18 and 01/22. Dr. Phipps (patient spiral machine operator) monitors outpatient for adjustment. - [...] 01/15/2023 Assessment & Plan (12/21/2021 5:42 AM ON AIR PERSONALITY): Worsening pain Use flexeril PRN Ear discomfort, left 06/15/2021 021 Neck pain 05/04/2021 01/15/2023 Assessment & Plan (12/21/2021 5:42 AM ON AIR PERSONALITY): Worsening pain Use flexeril PRN Assessment & [...] ith chronic systolic congestive heart failure ([facility]/H[facility]) 02/22/2021 01/15/2023 Assessment & Plan (12/21/2021 5:35 AM ON AIR PERSONALITY): Stable ruslan Salinas Goal: SBP<140, DP<90 Assessment & Plan (05/11/2021 4:16 AM CDT): Stable Cont ruslan lombardi Assessment & Plan (02/22/2021 2:52 PM CDT): Stable Cont ruslan lombardi Right leg pain 11/22/2020 06/30/2021 Assessment & Plan (12/06/2020 4:35 AM ON AIR PERSONALITY): Was likely secondary to cellulitis Is better Assessment & Plan (11/30/2020 5:22 AM ON AIR PERSONALITY): New Order STAT venous doppler If negative [...] of multiple sites of head and neck 11/13/20 19 06/30/2021 Chest pain at rest 11/13/2019 1 Clostridioides difficile diarrhea 11/13/2019 01/15/2023 Pain in right knee 11/13/2019 1 Postprocedural hematoma of abdominal wall 11/13/2019 01/15/2023 Sepsis with cutaneous manife stations ([facility]) 11/13/2019 01/15/2023 Type 2 diabetes mellitus not at goal ([facility]) 11/13/2019 01/15/2023 Assessment & Plan (02/14/2020 12:37 AM CDT): Stable Cont basaglar, ozempic Atrial fibrillation with slo w ventricular response ([facility]) 11/13/2019 01/15/2023 Chronic obstructive pulmonar y disease with bronchospasm ([facility]) 11/13/2019 06/30/2021 Obstructive chronic bronchit is with exacerbation (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 01/15/2023 Gastroesophageal reflux dise ase with stricture 11/13/2019 01/15/2023 Status post mitral valve rep lacement with metallic valve 11/13/2019 01/15/2023 Dyslipidemia, goal LDL below 100 11/13/2019 10/12/2021 Insomnia 11/13/2019 01/15/2023 Uncontrolled stage 2 hypertension 11/13/2019 02/22/2021 Controlled restless legs syndrome 11/13/2019 06/30/2021 Weakness 11/13/2019 06/30/2021 Assessment & Plan (11/13/2019 10:25 AM ON AIR PERSONALITY): Recently discharged from hospital for pneumonia and [...] 06/30/2021 Assessment & Plan (10/29/2019 1:33 PM ON AIR PERSONALITY): D/w care companion and hospitalist and sent for direct admission [...] 03/21/2023 Assessment & Plan (01/17/2023 4:07 PM ON AIR PERSONALITY): -echocardiogram from 05/25/2022 showed EF of 54% -currently there is no evidence of fluid overload on exam, proBNP is actually better than the previous admission -resumed Lasix and Aldactone -goal-directed medical therapy as tolerated Assessment & Plan (05/25/2022 5:01 AM CDT): - 04/10/22 2D echo at [place] - EF 50%, mild aortic stenosis, mechanical [...] 01/15/2023 Assessment & Plan (12/21/2021 5:41 AM ON AIR PERSONALITY): Stable Cont allopurinol Assessment & Plan (02/22/2021 [...] infarction involvin g right cerebellar artery (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 History of mitral valve repair 07/09/2016 01/15/2023 Atherosclerosis of aorta ([facility]/HCC) 07/06/2016 01/15/2023 Overview (05/06/2019): Overview: CXR 01/01/14 Benign colonic polyp 05/10/2016 023 Lenticular sclerosis 03/13/2016 023 Complete atrioventricular block ([facility]) 08/03/2015 01/15/2023 History of mitral valve repl [...] and Atrovent nebs, and p.r.n. albuterol. Had court worker has also added incruse once a day which she will continue. I will order PFT Assessment & Plan (05/25/2022 3:45 AM CDT): - Not needing albuterol as outpatient per pulmonology note - Trellegy Ellipta 1 puff daily History of RI (myocardial infarction) 04/21/2014 01/15/2023 Overview (05/06/2019): Overview: QUESTIONABLE, await records. Demand ischemia? No blockage per the patient. Pacemaker was placed for bradycardia. ??? Sleep apnea 04/11/2014 01/15/2023 Overview (02/28/2017): [facility] Assessment & Plan (05/25/2022 2:33 AM CDT): - CPAP ordered - MAC precautions Type 2 diabetes mellitus wit h renal complication 04/11/2014 01/15/2023 Overview (02/28/2017): DMII WO CMP NT ST [facility] Assessment & Plan (05/25/2022 4:52 AM CDT): - Follow[facility] (Home reg ozempic, Jardiance 10, [...] Ozempic Assessment & Plan (12/10/2018 2:06 PM ON AIR PERSONALITY): I called her to assess response to her new med, ozempic. Took first correct dose two days ago, did not feel great yesterday, but feels well today. Stopped januvia as directed. Will take next ozempic dose in 5 days and let us know response. Ra Jara Benign neoplasm of large intestine 04/11/2014 01/15/2023 Overview (03/02/2017): BENIGN NEOPLASM LG BOWEL Coronary arteriosclerosis in [place] artery 04/11/2014 06/30/2021 Overview (03/02/2017): CRNRY ATHRSCL [...] with diet Coronary artery disease invo lving [place] coronary artery of [place] heart without angina pectoris 05/09/2013 01/15/2023 Overview (06/25/2019): Overview: No chest discomfort History of asthma 03/31/2013 01/15/2023 Overview (02/08/2022): Mainly with viral infections. Mitral valve disease 03/19/2013 023 Cardiomyopathy 03/19/2013 01/15/2023 Chronic systolic heart failure ([facility]) 03/19/2013 01/15/2023 Mixed urge and stress incontinence 09/09/2012 01/15/2023 Dry eye syndrome 03/04/2012 01/15/2023 Overview (02/08/2022): Not bad as of 11/05/2014 not compliant with drops always. History of colonic polyps 04/04/2011 Overview (05/06/2019): Overview: Colonoscopy Removed 8 polyps, all benign. 10/23/16 tubular adenoma x 4 Complicated by GI bleed hospital stay 10/27/16 - 11/04/16, BJ Asystole ([facility]/HCC) 02/09/2011 1 Persistent atrial fibrillation 02/09/2011 01/15/2023 [...] How often do you attend chur or jewish services? More than 4 times per year 02/02/2023 Do you belong to any clubs o r organizations such as yazdanism groups, unions, fraternal or athletic groups, or [...] place to sleep or slept in a prison (including now)? No 02/02/2023 Personal Safety Answer Date Recorded Have you ever been in or are you currently in a harmful physical or emotional relationship or is someone making you feel afraid or unsafe? Denies 04/02/2024 Comments No Sex and Gender Information Value Date Recorded Sex Assigned at Not on file Legal Sex Female 9:08 AM ON AIR PERSONALITY Gender Identity Female 06/25/2019 7:13 AM CDT Sexual Orientation Not on file Last Filed Vital Signs Vital Sign Reading Time Taken Comments Blood Pressure 128/76 12/10/2024 1:25 PM ON AIR PERSONALITY Pulse 91 12/10/2024 1:25 PM ON AIR PERSONALITY Temperature 36.2 C (97.1 F) 09/12/2024 11:39 AM CDT Respiratory Rate 18 04/10/2024 8:25 AM CDT Oxygen Saturation 99% 12/10/2024 1:25 PM ON AIR PERSONALITY Inhaled Oxygen Concentration - - Weight 85.7 kg (189 lb) 12/10/2024 1:25 PM ON AIR PERSONALITY Height 157.5 cm (5' 2) 12/10/2024 1:25 PM ON AIR PERSONALITY Body Mass Index 34.57 12/10/2024 1:25 PM ON AIR PERSONALITY Plan of Treatment Not on file Medical Devices Implanted Type Area Lacing String Cutter Device Identifier Shelf Expiration Date Model / Serial / Lot [employer] Coil Embolization Tornado Microcoil Ekwok Od3-2mm .018 In Catheter [id number] - [id number] Implanted:Qty: 1 on 05/24/2022 at [facility] [employer] 03/13/2027 [id number] / / [id number] [employer] Coil Embolization Tornado Microcoil Ekwok Od3-2mm .018 In Catheter [id number] - [id number] Implanted:Qty: 1 on 05/24/2022 at [facility] [employer] 03/13/2027 [id number] / / [id number] [id number] Coil Embolization Tornado Microcoil Ekwok Od3-2mm .018 In Catheter [id number] - [id number] Implanted:Qty: 1 on 05/24/2022 at [facility] [employer] 03/13/2027 [id number] / / [id number] [id number] Coil Embolization Tornado Microcoil Ekwok Od3-2mm .018 In Catheter [id number] - [id number] Implanted:Qty: 1 on 05/24/2022 at [facility] [employer] 03/13/2027 [id number] / / [id number] pbsi Coil Embolization Tornado Microcoil Ekwok Od3-2mm .018 In Catheter [id number] - [id number] Implanted:Qty: 1 on 05/24/2022 at [facility] [employer] 03/13/2027 [id number] / / [id number] Angio-Seal Vip 6fr Closere Device [id number] - [id number] Implanted:Qty: 1 on 05/24/2022 at [facility] [employer] Heather 02/23/2023 [id number] / / [id number] Procedures Procedure Name Priority Date/Time Associated Diagnosis Comments DEVICE CHECK - IN OFFICE Routine 01/28/2025 3:12 PM ON AIR PERSONALITY Atrial fibrillation, unspecified type (HCC) Sick sinus syndrome (HCC) POCT HEMOGLOBIN A1C Routine 09/12/2024 1 1:49 AM CDT Type 2 diabetes mellitus with diabetic nephropathy, with long-term current use of insulin (HCC) EGFR Routine 04/09/2024 10:22 PM CDT POCT LIPID PANEL Routine 08/17/2023 3:0 6 PM CDT Mixed diabetic hyperlipidemia associated with type 2 diabetes mellitus (HCC) ALBUMIN CREATININE RATIO, URINE Routine 02/27/2019 7:47 AM CDT Type 2 diabetes mellitus with hyperglycemia, with long-term current use of insulin (HCC) from Last 3 Months or Most Recently Relevant to Health Maintenance Results * DEVICE CHECK - IN OFFICE (01/28/2025 3:12 PM ON AIR PERSONALITY) Anatomical Region Laterality Modality Other Narrative 01/29/2025 8:26 AM ON AIR PERSONALITY Medtronic Neva Single Pacemaker. Dx; SSS, Afib. [...] remaining battery life to PAUL. Presenting rhythm- CONTRACTING EXECUTIVE. CONTRACTING EXECUTIVE- 99.9%. No Ventricular high rate episodes noted. Medications; Coumadin, Coreg. No programming changes made to device settings. See scanned report. Office pacemaker f/u expected in 13-15 months. [facility] remote f/u 05/06/2025. Of Note: Corinne-pt daughter informed me that her sister Kailyn has the mobile remote marino on her cell phone. I checked [employer] web site and it shows that patient does not have a monitor. Sent email to [employer] monitor support team to contact Kailyn regarding remote monitoring for her mother. Ailyn Shay, RN Romel Graves MD [facility] PROCEDURES F inal Result * POCT hemoglobin A1c (09/12/2024 11:49 AM CDT) Pathologist [facility] Hemoglobin A1C, POC 6.7 4.0 - 5.6 [...] LAB BLOOD ORDERABL ES Final Result [facility] Department [place] [address] * POCT lipid panel (08/17/2023 3:06 PM [...] ur 100 20 - 275 mg/dL [facility] Microalbumin, ur 52.9 See Note: mg/dL [facility] Comment: Reference Range: Reference Range Not established Verified by repeat analysis. Microalbumin/creat ratio 529(H) <30 mcg/mg creat [facility] Comment: The ADA defines abnormalities in albumin [...] Site ID: [id number] Name: Ismael Rahman Address: [facility] [place] [address] Director: Hermelindo Arce D.O., MPH Ra Jara MD LAB URINE ORDERABLES Kami l Result [facility] from Last 3 Months or Most Recently Relevant to Health Maintenance Insurance [address] [place] [address] MEDICARE [facility] Address: [facility] [address] [place] [address] [facility] AARP Dr Dasilva [address] [place] [id number] [facility] MEDICARE Dr Dasilva [address] [place] [address] MEDICARE Advance Directives For more information, please contact: [phone] Documents on File Type Date Recorded Patient Deck Hand Expl anation ADVANCE DIRECTIVE 02/05/2023 10:58 AM [...] 11:11 PM 06/05/2022 8:42 PM Care Teams Grounds Maintenance Manager Relationship Specialty Start Date End Date No, Physician PCP - General 09/12/24
--- OUTSIDE RECORDS SUMMARY | 2025-04-30 17:02 | XMS_ITS | Encounter Summary ---
Author Organization [facility] Address [address] [place] [address] Phone Care Team Providers Care Hand Riveter Name Role Phone Meredith Aburto RESPIRATORY DIRECTOR Primary Care Provi arlette No, Physician Primary Care Provider [phone] Encounter Details Date Type Department Care Team (Late st Contact Info) Description 04/23/2024 Telephone [facility] Endocrinology Metabolism and Lipid [address] [facility] Medicine 13th [place] [address] [place] [address] Hillary Mary RMA Social History [...] week 02/02/2023 How often do you attend [facility] or uatsdin services? More than 4 times per year 02/02/2023 Do you belong to any clubs o r organizations such as confucianist groups, unions, fraternal or athletic groups, or [...] place to sleep or slept in a [place] facility (including now)? No 02/02/2023 Personal Safety Answer Date Recorded Have you ever been in or are you currently in a harmful physical or emotional relationship or is someone making you feel afraid or unsafe? Denies 04/02/2024 Comments No Sex and Gender Information Value Date Recorded Sex Assigned at Not on file Legal Sex Female 9:08 AM CHOIR DIRECTOR Gender Identity Female 06/25/2019 7:13 AM CDT Sexual Orientation Not on file documented as of this encounter Plan of Treatment Not on file documented as of this encounter Visit Diagnoses Not on filedocumented in this encounter Care Teams Hand Riveter Relationship Specialty Start Date End Date Meredith Aburto NP PCP - General Family Medicine 08/17/23 09/11/24 No, Physician PCP - General 09/12/24 documented as of this encounter
--- OUTSIDE RECORDS SUMMARY | 2025-04-30 17:02 | XMS_ITS | Encounter Summary ---
Author Organization [facility] Address [address] [place] [address] Care Team Providers Care Export Sales Manager Name Role Phone Juana Mesa MD Primary Care Provider Juana Mesa MD Primary Care Provider Juana Mesa MD Primary Care Provider Juana Mesa MD Unavailable [phone] Juana Mesa MD Unavailable [phone] Juana Mesa MD Unavailable [phone] Juana Mesa MD Unavailable [phone] Juana Mesa MD Unavailable [phone] Juana Mesa MD Unavailable Ra Jara MD Unavailable [phone] Dada Lou MD Unavailable Unavailable Paco Holden MD Unavailable [phone] Paramjit Escobar MD Unavailable Encounter Details Date Type Department Care Team (Late st Contact Info) Description 12/23/2019 Lab Requisition [facility] [address] [facility] [address] [place] [address] Vashti Milan DO [address] [facility] [address]L [place] [address] Social History Tobacco Use Types Packs/Day Years [...] Assessment Author No 07/07/2016 9:30 PM CDT Del Bland RN * Does person have serious [...] 9:30 PM CDT Gaby Bland RN documented in this encounter [...] 7.0 Result Component 6.4( 7 6:22 AM QUALITY INTERN) No Lang, Marnice A documented as of this encounter Procedures Procedure Name Priority Date/Time Associated Diagnosis Comments DERMATOPATHOLOGY Routine 12/22/2019 12:0 0 AM QUALITY INTERN documented in this encounter Results * DERMATOPATHOLOGY (12/22/2019 12:00 AM QUALITY INTERN) Case Report Dermatopathology Report Case: [id number] Authorizing Provider: Vashti Milan DO Collected: 12/22/2019 12:00 AM Ordering Location: [facility] Lab Received: 12/23/2019 12:34 PM Pathologist: Anamika Whatley MD Specimens: A) - Skin, left upper arm B) - Skin, right back 0 1:39 PM QUALITY INTERN DERMATOPATHOLOGY LABORATORY Final Diagnosis Specimen A. 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 SKIN, right back: SEBORRHEIC KERATOSIS, MACULAR (L82.1) 0 1:39 PM QUALITY INTERN DERMATOPATHOLOGY LABORATORY at 1339 QUALITY INTERN Clinical History A: R/O SCC B: Nevus R/O atypia 0 1:39 PM [facility]AL[facility] INTERN DERMATOPATHOLOGY LABORATORY Gross Description Specimen A: Received [...] 5x5x1 mm. Jar 0. 0 1:39 PM [facility] DERMATOPATHOLOGY LABORATORY Microscopic Description Specimen A. SKIN, [...] is increased basilar pigmentation. 0 1:39 PM [facility] DERMATOPATHOLOGY LABORATORY Disclaimer An external and internal positive and negative controls are appropriate for the histochemical, immunohistochemical and immunofluorescence stain(s) in this case (if any), except where stated explicitly. The performance characteristics of the stain(s) cited in this report were developed and its performance characteristic determined by the Dermatopathology Laboratory at [facility], directed by Dr. Ines Maldonado. These tests need not be, and therefore are not, approved by the [place] Food and Drug Administration. The tests are used for clinical purposes. Billing Codes Specimen Charges Stain Charges 14401 42633 1 1 0 1:39 PM QUALITY INTERN DERMATOPATHOLOGY LABORATORY Embedded Images 0 1:39 PM [facility] DERMATOPATHOLOGY LABORATORY Pathology/Cytology TISSUE SPECIMEN FROM SKIN / Unknown 12/22/2019 12/23/2019 12:34 PM QUALITY INTERN Miscellaneous samples (specimen) TISSUE SPECIMEN FROM SKIN / Unknown 12/22/2019 12/23/2019 12:34 PM QUALITY INTERN us Vashti Milan DO LAB - PATHOLOGY/CYTOLOGY ORDERABLES Final Result DERMATOPATHOLOGY LABORATORY [facility] - Department of Dermatology [address] [place] [address], [address] [place] [address], [facility] [phone] documented in this encounter Visit Diagnoses Not on filedocumented in this encounter Care Teams Export Sales Manager Relationship Specialty Start Date End Date Juana Mesa MD [address] [facility] [address] [place] [address] PCP - General 12/22/19 06/30/20 Juana Mesa MD [address] [place] [address] PCP - General 07/01/20 04/10/21 Juana Mesa MD [address] [place] [address] PCP - General 04/11/21 Jauna Mesa MD [address] [place] [address] 04/11/21 Juana Mesa MD [facility] [place] [address] 07/01/20 Juana Mesa MD [address] [place] [address] 12/22/19 Juana Mesa MD [address] [place] [address] 07/21/19 Juana Mesa MD [address] [place] [address] 07/12/18 Juana Mesa MD [address] [place] [address] Family Medicine 05/03/18 Ra Jara MD [address] [place] [address] Endocrinology 04/21/14 Dada Lou MD [facility] [place] [address] Internal Medicine 11/09/15 Paco Holden MD [facility] [place] [address] Neurology 05/11/16 Paramjit Escobar MD [facility] [place] [address] Internal Medicine 11/23/16 documented as of this encounter
--- OUTSIDE RECORDS SUMMARY | 2025-04-30 17:02 | XMS_ITS | Encounter Summary ---
Author Organization [facility] Address [address] [facility] [place] [address] Care Team Providers Care Biomedical Engineering Director Name Role Phone Juana Mesa MD Primary Care Provider Juana Mesa MD Primary Care Provider Juana Mesa MD Unavailable [phone] Juana Mesa MD Unavailable [phone] Juana Mesa MD Unavailable [phone] Juana Mesa MD Unavailable Juana Mesa MD Unavailable [phone] Juana Mesa MD Unavailable [phone] Ra Jara MD Unavailable Dada Lou MD Unavailable Unavailable Paco Holden MD Unavailable [phone] Paramjit Escobar MD Unavailable [phone] Encounter Details Date Type Department Care Team (Late st Contact Info) Description 07/05/2020 Lab Requisition [facility] [address] [facility] [place] [phone] Vashti Milan, [address] [facility] [address] [place] [address] Social History Tobacco Use Types Packs/Day Years [...] file Not on file Not on file COVID-19 Exposure Response Date [...] 7.0 Result Component 6.4( 7 6:22 AM FINISH FILER) No Lang, Marnice A documented as of this encounter Procedures Procedure Name Priority Date/Time Associated Diagnosis Comments DERMATOPATHOLOGY Routine 07/01/2020 12:0 0 AM CDT documented in this encounter Results * DERMATOPATHOLOGY (07/01/2020 12:00 AM CDT) Case Report Dermatopathology Report Case: [id number] Authorizing Provider: Vashti Milan DO Collected: 07/01/2020 12:00 AM Ordering Location: [facility] Lab Received: 07/05/2020 11:58 AM Pathologist: Julian Maldonado MD Specimen: Skin, mid chest 0 12:20 PM CDT DERMATOPATHOLOGY LABORATORY Final Diagnosis Specimen A. 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 Ines Maldonado. These tests need not be, and therefore are not, approved by the [place] Food and Drug Administration. The tests are used for clinical purposes. Billing Codes Specimen Charges Stain Charges 82422 1 0 12:20 PM CDT DERMATOPATHOLOGY LABORATORY Embedded Images 0 12:20 PM CDT DERMATOPATHOLOGY LABORATORY Pathology/Cytolog y TISSUE SPECIMEN FROM SKIN / Unknown 07/01/2020 07/05/2020 11:58 AM CDT Vashti Milan DO LAB - PATHOLOGY/CYTOLOGY ORDERABLES Final Result DERMATOPATHOLOGY LABORATORY [facility] - Department of Dermatology [address] [place]/[address] [phone] documented in this encounter Visit Diagnoses Not on filedocumented in this encounter Care Teams Biomedical Engineering Director Relationship Specialty Start Date End Date Juana Mesa MD [address] [facility] [address] [place] [address] [place] [phone] PCP - General 07/01/20 04/10/21 Juana Mesa MD [address] [facility] [address] [place] [address] [place] [phone] PCP - General 04/11/21 Juana Mesa MD [address] [facility] [address] [place] [address] [place] [phone] 04/11/21 Juana Mesa MD [address] [facility] [address] [place] [address] [place] [phone] 07/01/20 Juana Mesa MD [address] [facility] [address] [place] [address] [place] [phone] 12/22/19 Juana Mesa MD [address] [facility] [address] [place] [address] [place] [phone] 07/21/19 Juana Mesa MD [facility] [address] [place] [address] [place] [phone] 07/12/18 Juana Mesa MD [facility] [address] [place] [address] [place] [phone] Family Medicine 05/03/18 Ra Jara MD [facility] [place] [phone] Endocrinology 04/21/14 Dada Lou MD [address] [place] [phone] Internal Medicine 11/09/15 Paco Holden MD [address] [place] [phone] Neurology 05/11/16 Paramjit Escobar MD [address] [place] [phone] Internal Medicine 11/23/16 documented as of this encounter
--- OUTSIDE RECORDS SUMMARY | 2025-04-30 17:03 | XMS_ITS | Clinical Summary ---
Author Organization [facility] Address [address] [place] [address] Care Team Providers Care Whale Fisherman Name Role Phone Juana Mesa MD Primary Care Provider [phone] Juana Mesa MD Unavailable Juana Mesa MD Unavailable Juana Mesa MD Unavailable Juana Mesa MD Unavailable Juana Mesa MD Unavailable Juana Mesa MD Unavailable Ra Jara MD Unavailable Dada Lou MD Unavailable Unavailable Paco Holden MD Unavailable [phone] Paramjit Escobar MD Unavailable [phone] Source Comments [facility],non-owned Affiliates and Associated Physician Practices is amultiple site organization consisting of ambulatory clinics and hospital sitesin [place], [place], [place] and [place]. This disclosure is being madepursuant to the Care Everywhere program and may not contain all information available regarding this patient. Last updated 18.[facility] Allergies Active Allergy Reactions Criticality Noted Date Comments Codeine Nausea 04/06/2009 nausea Medications * Be aware that medications may not be up to date on this document. Alwaysverify current medications with the patient. One Touch Delica Lancets 1 Device once Reported on 11/23/2016 3 07/28/20 15 Active ONETOUCH VERIO test strip 1 Strip once 3 07/28/20 15 Active montelukast (SINGULAIR) 10 MG tablet Take 10 mg by mouth at bedtime Active INCRUSE ELLIPTA 62.5 MCG/INH inhaler Inhale 1 puff by mouth once daily 09/23/20 18 Active BASAGLAR KWIKPEN (BASAGLAR) pen Inject 30 Units subcutaneously at bedtime 10/26/20 18 Active losartan (COZAAR) 25 MG tablet TAKE 1 TABLET BY MOUTH ONCE DAILY 90 tablet 2 07/12/20 20 Active doxycycline monohydrate 50 MG capsule Take 50 mg by mouth 2 times daily 07/12/20 20 Active OZEMPIC, 1 MG/DOSE, 2 MG/1.5ML pen Inject 2 mg subcutaneously once daily 06/26/20 20 Active alendronate (FOSAMAX) 70 MG tablet Take 70 mg by mouth every 7 days 07/05/20 20 Active allopurinol (ZYLOPRIM) 300 MG tablet Take 300 mg by mouth once daily 07/05/20 20 Active atorvastatin (LIPITOR) 10 MG tablet Take 10 mg by mouth once daily 07/22/20 20 Active budesonide-form oterol (SYMBICORT) 160-4.5 MCG/ACT inhaler Inhale 2 puffs by mouth 2 times daily 02/09/20 20 Active metFORMIN (GLUCOPHAGE) 500 MG tablet Take 500 mg by mouth 2 times daily with morning and evening meal 07/05/20 20 Active insulin glargine (LANTUS) pen Inject 33 Units subcutaneously once daily 10/16/20 19 Active Glucose Blood (BLOOD GLUCOSE TEST STRIPS) STRP Use one strip daily for glucose monitoring. Dx: E11.22 02/13/20 20 Active umeclidinium (INCRUSE ELLIPTA) 62.5 MCG/INH inhaler Inhale 62.5 mcg by mouth once daily 02/09/20 20 Active warfarin (COUMADIN) 2 MG tablet Take 2 (two) tablets by mouth once daily 180 tablet 1 02/25/20 21 Active furosemide (LASIX) 20 MG tablet Take 1 (one) tablet by mouth once daily 90 tablet 3 04/18/20 21 Active potassium chloride ER (KLOR-CON) 10 MEQ tablet Take 1 (one) tablet by mouth once daily 90 tablet 2 06/01/20 21 Active spironolactone (ALDACTONE) 25 MG tablet Take 0.5 (one-half) tablet by mouth once daily 45 tablet 2 06/01/20 21 Active trospium (SANCTURA) 20 MG tablet Take 1 (one) tablet by mouth 2 times daily 90 tablet 4 08/16/20 21 Active carvedilol (COREG) 25 MG tablet Take 1 (one) tablet by mouth 2 times daily 180 tablet 3 08/16/20 21 Active Budeson-Glycopy rrol-Formoterol (BREZTRI AEROSPHERE) 160-9-4.8 MCG/ACT AERO Inhale 2 Inhalers by mouth 2 times daily Active cefdinir (OMNICEF) 300 MG capsule Take 300 mg by mouth 2 times daily 01/28/20 22 Active Active Problems Problem Noted Date Diagnosed [...] Overview (09/20/2020): Last Assessment & Plan: D/w life care planner and hospitalist and sent for direct admission to the hospital Aortic stenosis due to bicuspid aortic valve 01/2019 Vitamin D deficiency 10/31/2018 Overview (09/20/2020): Last Assessment & Plan: Stable Cont vitamin d supplement Anticoagulation monitoring, INR range 2.5-3.5 History of mitral valve replacement with mechani cindy valve 03/11/2018 Assessment & Plan (12/30/2020 12:41 PM PEDIATRIC NURSE PRACTITIONER): St. Loc' mechanical valve. Stable, continue warfarin. [...] 2016 Assessment & Plan (12/30/2020 12:33 PM PEDIATRIC NURSE PRACTITIONER): Mild and asymptomatic on recent Exercise Bike ECHO: Medical managment for now, follow up with Dr. Rouse in 6 months. Assessment & Plan (10/14/2019 1:32 PM PEDIATRIC NURSE PRACTITIONER): Mild and asymptomatic on recent Exercise Bike [...] discomfort. Assessment & Plan (12/30/2020 12:24 PM PEDIATRIC NURSE PRACTITIONER): Stable on warfarin and BB, asymptomatic. Assessment & Plan (08/05/2020 9:20 AM CDT): No symptoms or concern regarding uncontrolled rate, remains anticoagulated secondary to her mechanical aortic valve. Assessment & Plan (10/14/2019 1:25 PM PEDIATRIC NURSE PRACTITIONER): Stable on warfarin and BB> Long-term insulin use 11/04/2014 Paresis 05/22/2014 COPD (chronic obstructive pulmonary disease) Overview (05/11/2016): Doing well with Spiriva and off Qvar. Not needing albuterol. History of MN (myocardial infarction) 04/21/2014 Overview (04/21/2014): QUESTIONABLE, await records. Demand ischemia? No blockage per the patient. Pacemaker was placed for bradycardia. ??? Benign neoplasm of large intestine 04/11/2014 Overview (09/20/2020): Overview: BENIGN NEOPLASM LG BOWEL Herpes zoster with nervous system complication 0 04/11/2014 Overview (09/20/2020): Overview: H ZOSTER NERV SYST NEC Non-ischemic cardiomyopathy 05/09/2013 Assessment & Plan (12/30/2020 12:30 PM PEDIATRIC NURSE PRACTITIONER): Stable and asymptomatic. Last EF recovered noted to be 60% in June 2020. No decline in functional status, continues to be [place] Heart Association class 1-2. Remains on carvedilol 25 mg twice daily, losartan 25 mg daily, spironolactone 12.5 mg daily and her loop diuretic. No changes in therapy at this time. Most recent lab work in Care Everywhere is stable. Assessment & Plan (08/05/2020 9:19 AM CDT): No decline in functional status, presently [place] Heart Association class 1-2. Remains on carvedilol 25 mg twice daily, losartan 25 mg daily, spironolactone 12.5 mg daily and her loop diuretic. 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 [facility] in April 2019 showed Mild nonobstructive [...] therapy. Assessment & Plan (10/14/2019 1:24 PM PEDIATRIC NURSE PRACTITIONER): Stable, denies chest pain. [facility] in April showed Mild nonobstructive CAD. [...] GI bleed hospital stay 10/27/16 - 11/04/16, [facility] Presence of cardiac pacemaker 10/05/2010 Overview (02/02/2017): Overview: VVI Medtronic with recurrent interchangeable high and low impedance (lead was placed in 2005). RV lead replacement 12-26-2016 Replaced 2015 Assessment & Plan (10/14/2019 1:24 PM PEDIATRIC NURSE PRACTITIONER): Device function wnl, no changes. Family history [...] [facility] office follows protime. 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 On warfarin. 11/05/2014 Assessment & Plan (10/14/2019 1:25 PM PEDIATRIC NURSE PRACTITIONER): St. Loc' mechanical valve. Stable, continue warfarin. Obstructive sleep apnea 04/06/2009 Overview (09/20/2020): Overview: OTH UNSPCF SLEEP APNEA Overview: Overview: On CPAP, 19 cm water. Compliant every night. Insomnia 08/15/2005 Actinic keratosis 05/16/2005 Malignant neoplasm of skin of parts of face 04/27 Alopecia 05/16/2005 Posterior vitreous detachment, both eyes Cataracts, bilateral Overview (02/17/2015): SeeDr. Jaydon Gabriel? Resolved Problems Problem Noted Date Diagnosed Date Resolved Date Cough 07/05/2020 10/18/2020 Urinary tract infection 12/28/201601/25 Leg ulcer 11/16/2016 11/25/2016 Overview (11/16/2016): Office Visit 01/30/14 Lower GI bleed 10/27/2016 11/04/2016 Overview (11/12/2016): Hospital stay [facility]. Followed hot snare polypectomy by Dr. Lou [...] Component Name 05/16/14 0814 02/13/14 06/10/12 0935 04/06/12 2050 08/30/11 1225 SODIUM -- -- 142 142 146* [...] status asthmaticus 05/16/2005 10/04/2020 Blepharitis 04/21/2014 Immunizations Immunization Administration Dates Next Due INFLUENZA VACCINE, TRIV. (AF LURIA, FLUZONE TRIVALENT; 6MO+) (IIV3) 09/09/2012,09/04/2011,09/10/2004,2003 Covid Compass primary monoval ent 12+ yr 0.3mL Purple [...] Brother Coronary Artery Disease,premature <65 female Daughter [place] Heart Disease Mother Hypertension Mother Relation Name [...] file Not on file Not on file Last Filed Vital Signs [...] 2:59 PM CDT Height 165.1 cm (5' 5) 02/06/2022 2:59 PM CDT Body Mass Index [...] COVID-19 VACCINE ( season) 2024 01/12/2021, 12/24/2020 DEPRESSION SCREENING 11/26/2024 DIABETES - URINE PROTEIN SCREENING 11/26/2024 07/24/2016, 02/23/2015, 01/30/2014, Additional history exists INFLUENZA VACCINE (Season Ended) 2025 09/14/2020, 09/02/2019, 09/18/2018, Additional history exists BONE DENSITY TESTING Completed [...] complete this topic MENINGOCOCCAL (Group B) VACCINE SHARED DECISION-MAKING Aged Out No longer eligible based on patient's age to complete this topic MENINGOCOCCAL GROUPS A/C/Y/W VACCINE Aged Out No longer eligible based [...] 7.0 Result Component 6.4( 7 6:22 AM PEDIATRIC NURSE PRACTITIONER) No Lang, Marnice A Procedures Procedure Name Priority Date/Time Associated Diagnosis Comments BASIC METABOLIC PANEL (CALCIUM TOTAL) STAT 05/09/2019 7:23 AM CDT Coronary artery disease of [place] artery of [place] heart with stable angina pectoris HEMOGLOBIN A1C Routine 01/26/2017 6:22 AM PEDIATRIC NURSE PRACTITIONER MICROALB/CREAT RATIO URINE RANDOM PANEL Routine 07/24/2016 7:53 AM CDT Type 2 diabetes mellitus with stage 3 chronic kidney disease, with long-term current use of insulin DIABETES EYE EXAM Routine 03/13/2016 DEXA BONE DENSITY 2 SITES Routine 12/16/2008 from Last 3 Months or Most Recently Relevant to Health Maintenance Results * (ABNORMAL) BASIC METABOLIC PANEL (CALCIUM TOTAL) (05/09/2019 7:23 AM CDT) BUN 28(H) 7 - 26 mg/dL 05/09/2019 8:06 AM T [facility] Creatinine 1.3(H) 0.6 - 1.2 mg/dL 05/09/2019 8:06 AM T [facility] Sodium 142 136 - 145 mmol/L 05/09/2019 8:06 AM T [facility] Potassium 5.1(H) 3.5 - 4.5 mmol/L 05/09/2019 8:06 AM [facility] Comment: Hemolysis detected in this specimen. Hemolysis is known to cause elevations in this analyte. Caution should be exercised in the interpretation of this result. Recommend repeat testing if clinically indicated. Chloride 106 98 - 107 mmol/L 05/09/2019 8:06 AM [facility] CO2 24 22 - 29 mmol/L 05/09/2019 8:06 AM [facility] Glucose 118(H) 70 - 115 mg/dL 05/09/2019 8:06 AM [facility] Calcium 10.4(H) 8.4 - 10.2 mg/dL 05/09/2019 8:06 AM [facility] Anion Gap 17 8 - 18 05/09/2019 8:06 AM [facility] BUN/Creatinine Ratio 22 7 - 23 05/09/2019 8:06 AM [facility] Osmolality Calculated 301(H) 270 - 300 mOsm/kg 05/09/2019 8:06 AM [facility] eGFR 40(L) >60 mL/min/1. 73 m2 05/09/2019 8:06 AM [facility] Blood BLOOD SPECIMEN / Unknown Venipuncture / Unknown 05/09/2019 7:23 AM CDT 05/09/2019 7:38 AM T Néstor Perry MD LAB - CHEMISTRY ORDERABLES Final Result Performing Organization Address City/State/[facility] Co de Phone Number [address] [phone] * (ABNORMAL) HEMOGLOBIN A1C (01/26/2017 6:22 AM PEDIATRIC NURSE PRACTITIONER) Hemoglobin A1c 6.4(H) 4.4 - 6.3 % [facility] Estimated Average Glucose 137 mg/dL [facility] Comment: HbA1c Interpretation: Treatment target values recommended by ADA and other clinical organizations should be used to evaluate metabolic control in patients. Treatment Target Values: Normal : < 5.7% Pre-diabetes: 5.7-6.4% Diabetes: Equal to or greater than 6.5% Reference: [place] Diabetes Association Standards of Care in Diabetes -2014 In patients 70 years and older consider HbA1c target range of 7.0-7.5% Reference: Diabetes Mellitus in Older People: Position Statement on behalf of the International Association of Gerontology and Geriatrics (IAGG), the Diabetes Working Alliance Party for Older People (EDWPOP), and the International Task Force of Experts in Diabetes. Juan Welsh et al. J [place] [employer] Association. 2012 Test results diagnostic [...] BLOOD SPECIMEN / Unknown 01/26/2017 6:22 AM PEDIATRIC NURSE PRACTITIONER 01/26/2017 6:25 AM PEDIATRIC NURSE PRACTITIONER Telma Jansen MD LAB - CHEMISTRY ORDERABLES Fin al Result Performing Organization Address City/State/[facility] Co de Phone Number [address] [phone] * (ABNORMAL) MICROALB/CREAT RATIO URINE RANDOM PANEL (07/24/2016 7:53 AM CDT) Creatinine Urine 73 20 - 320 mg/dL [facility] Comment: Test Performed at: [place] [address] RYAN ROJAS DO,MPH Microalbumin Urine 2.8 mg/dL [facility] Comment: Reference Range Not established Test Performed at: [facility] [address] [address] RYAN ROJAS DO,MPH Microalbumin/Creat inine Ratio 38(H) [...] 7:53 AM CDT 07/24/2016 7:53 AM CDT us Bebo Hansen MD LAB - URINE CHEMISTRY ORDERAB LES Final Result [facility] [id number] [place] [address] * DIABETES EYE EXAM (03/13/2016) us Scanned Document HEALTH MAINTENANCE Final Result * DEXA BONE DENSITY 2 SITES (12/16/2008) Anatomical Region Laterality Modality Other Bebo Hansen MD DEXA ORDERABLES Final Result from Last 3 Months or Most Recently Relevant to Health Maintenance Insurance MEDICARE [facility] MEDICARE [facility] MEDICARE [facility] Advance Directives * Full Code (Latest Code Status on File) Date Activated Date Inactivated Comments 07/08/2016 3:09 AM 07/09/2016 1:32 PM * Full Code Date Activated Date Inactivated Comments 07/08/2016 2:29 AM 07/08/2016 3:09 AM * Full Code Date Activated Date Inactivated Comments 07/07/2016 9:32 PM 07/08/2016 2:29 AM Care Teams Whale Fisherman Relationship Specialty Start Date End Date Juana Mesa MD [address] [place] [address] PCP - General 04/11/21 Juana Mesa MD [address] [place] [address] 04/11/21 Juana Mesa MD [address] [place] [address] 07/01/20 Juana Mesa MD [address] [place] [address] 12/22/19 Juana Mesa MD [address] [address] 07/21/19 [place] [address] [place] [address] [address] [place] [phone] 07/12/18 Juana Mesa MD [address] [place] [address] Family Medicine 05/03/18 [place] [address] [place] [phone] Endocrinology 04/21/14 [place] [address] [place] [phone] Internal Medicine 11/09/15 Paco Holden MD [address] [place] [phone] Neurology 05/11/16 Paramjit Escobar MD [address] [place] [phone] Internal Medicine 11/23/16
--- OUTSIDE RECORDS SUMMARY | 2025-04-30 17:03 | XMS_ITS | Patient Health Record ---
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 Name Role Phone Paulette Prieto Primary Care Provider Dariel Walsh Unavailable [phone] Allergies Allergen (clinical drug ingredient) Drug/Non Drug [...] Active Carvedilol Active Spironolactone Activ e Ipratropium Mobile Active GaviLAX Active Azelastine HCl Activ e [...] Problem Status W/U Status Risk Notes Problem [id number] Type 2 diabetes mellitus with diabetic polyneuropathy, unspecified whether extermination inspector insulin use (E11.42) Active confirmed Plan Of Treatment No Information Insurance Providers Payer Name Payer Address Payer Phone Subscriber Number Group Number Insured Name Patient Relationship to Insured Coverage Start Date Coverage End Date Medicare [address] [place], [place] [id number] Kay Wyatt ch Self - patient is the insured [facility] MEDICARE SUPPLEMENT [address] [place] [address] [id number] Plan F Kay Wyatt ch Self - patient is the insured Medical (General) History Medical History History ICD Code Afib Asthma Bleeding disorder Blood clot CAD Diabetes Heart Attake CHF High cholestrol Kidney disease COPD Neuropathy Pacemaker PAD Pneumonia Stroke Wounds Surgical History Surgery Date(Month/Year) Artificial Heart Valve 2005
== END 2025-04-30 19:09 ==
PROVIDERS: Emergency Provider Emergency Medicine
DX: R60.9 Edema, unspecified (principal); Z20.822 Contact with and (suspected) exposure to COVID-19; E11.22 Type 2 diabetes mellitus with diabetic chronic kidney disease; I13.0 Hypertensive heart and chronic kidney disease with heart failure and stage 1 through stage 4 chronic kidney disease, or unspecified chronic kidney disease; I50.9 Heart failure, unspecified; N18.30 Chronic kidney disease, stage 3 unspecified; J44.9 Chronic obstructive pulmonary disease, unspecified; E53.8 Deficiency of other specified B group vitamins; R32 Unspecified urinary incontinence; G47.33 Obstructive sleep apnea (adult) (pediatric); M10.9 Gout, unspecified; M81.0 Age-related osteoporosis without current pathological fracture; Z95.2 Presence of prosthetic heart valve; Z95.0 Presence of cardiac pacemaker; Z87.442 Personal history of urinary calculi; Z87.891 Personal history of nicotine dependence; Z90.710 Acquired absence of both cervix and uterus; Z79.85 Long-term (current) use of injectable non-insulin antidiabetic drugs; Z79.899 Other long term (current) drug therapy; Z79.01 Long term (current) use of anticoagulants
CPT/HCPCS: 36415; 71045; 80053; 85025; 87637; 93005; 93971; 99284